=== PATIENT | female | born 1960 | race Caucasian/White ===

== ENCOUNTER → 2020-08-12 12:35 | Outpatient (CLI) | payer BC, SELFPAY ==
[2020-07-30 13:24] VITALS: BMI 33.6
--- NOTE | 2020-08-12 12:48 | MRI_ITS ---
STUDY: MRI LUMBAR SPINE WITHOUT CONTRAST REASON FOR EXAM: Female, 60 years old. BACK PAIN INTO HIPS BILATERALLY X 6 MONTHS TECHNIQUE: Standardized fat and water weighted pulse sequences were obtained in the sagittal and axial planes. COMPARISON: X-ray 07/30/2020 FINDINGS: T12-L1: Normal endplates. Normal disc height, hydration and morphology. Normal bilateral facet joints. Normal central canal and bilateral lateral recesses. Normal bilateral intervertebral neural foramina. Normal lumbar lordosis. There is no substantial scoliosis. Normal conus medullaris that terminates at the L2. L1-2: Normal endplates. Normal disc height, hydration and morphology. Normal bilateral facet joints. Normal central canal and bilateral lateral recesses. Normal bilateral intervertebral neural foramina. L2-3: Mild bilateral facet hypertrophy and moderate ligament flavum hypertrophy. Mild bilobed disc protrusion produces mild spinal stenosis with mild bilateral lateral recess stenosis and mild bilateral neural foraminal stenosis. L3-4: Moderate bilateral facet hypertrophy and severe ligament flavum hypertrophy. Mild bilobed disc protrusion produces mild spinal stenosis with mild bilateral lateral recess stenosis, mild right neural foraminal stenosis and moderate left neural foraminal stenosis with abutment of the left L3 nerve root laterally. L4-5: Mild bilateral facet hypertrophy and moderate ligament flavum hypertrophy. Mild broad disc protrusion produces mild spinal stenosis with mild bilateral lateral recess stenosis, moderate right neural foraminal stenosis with abutment of the right L4 nerve root laterally and mild left neural foraminal stenosis. L5-S1: Normal endplates. Normal disc height, hydration and morphology. Normal bilateral facet joints. Normal central canal and bilateral lateral recesses. Normal bilateral intervertebral neural foramina. Normal visualized sacral ala. Normal visualized paraspinous soft tissue structures. MRI/Spine Lumbar (Routine) IMPRESSION: Multilevel degenerative changes, as described above. Electronically Signed: Robert Osman MD at 16:32 EST Tel , Service support ,
== END ==
LOC: MRI 12:36
PROVIDERS: PCP Family Medicine; Referring Provider Orthopaedic Surgery; Visit Provider Orthopaedic Surgery
DX: M54.5 Low back pain (principal); M51.37 Other intervertebral disc degeneration, lumbosacral region
CPT/HCPCS: 72148

== ENCOUNTER → 2020-12-21 07:15 | Outpatient (CLI) | payer BC, SELFPAY ==
--- NOTE | 2020-12-21 07:30 | MRI_ITS ---
STUDY: MRI RIGHT SHOULDER REASON FOR EXAM: Chronic progressive right shoulder pain and decreased range of motion for 6 months. TECHNIQUE: Standardized fat and water weighted pulse sequences were obtained in all 3 orthogonal planes. COMPARISON: None. FINDINGS: There is mild supraspinatus tendinosis (T2 coronal images 10-13) without discrete tendon tear. Normal infraspinatus tendon. Normal subscapularis tendon. Normal teres minor tendon. Normal supraspinatus muscle. Normal infraspinatus muscle. Normal subscapularis muscle. Normal teres minor muscle. Normal glenohumeral articulation. There are small cysts in the anterior aspect of the humeral head and greater tuberosity. Normal biceps labral complex. There is tendinosis of the intracapsular long biceps tendon (T2 sagittal images 11-15). Normal labrum. Normal capsulo- ligamentous complex. There is acromioclavicular arthrosis with mild hypertrophic changes effacing the subacromial fat (T2 sagittal images 15, 16). There is a Type II morphology (curved), with a neutral orientation. There is a small volume of subacromial-subdeltoid bursal fluid. Normal visualized coracohumeral and coracoacromial ligaments. Normal deltoid muscle. Normal trapezius muscle. MRI/Upper Ext Joint Only(Routine) IMPRESSION: Mild supraspinatus tendinosis without demonstrated rotator cuff tear. Tendinosis of the long biceps tendon. Acromioclavicular arthrosis. Mild subacromial-subdeltoid bursitis. Electronically Signed: Anastacio Hogan MD at 8:42 EDT Tel , Service support ,
== END ==
PROVIDERS: PCP Family Medicine
DX: M25.511 Pain in right shoulder (principal); G89.29 Other chronic pain
CPT/HCPCS: 73221

== ENCOUNTER → 2021-04-26 13:19 | Outpatient (CLI) | payer BC, SELFPAY ==
--- NOTE | 2021-04-26 13:27 | MRI_ITS ---
STUDY: MRI LEFT SHOULDER REASON FOR EXAM: Chronic left shoulder pain, decreased range of motion. TECHNIQUE: Standardized fat and water weighted pulse sequences were obtained in all 3 orthogonal planes. COMPARISON: None. FINDINGS: There is supraspinatus tendinosis (T2 coronal images 8-10) without discrete tendon tear. There is mild infraspinatus tendinosis and a very small low-grade partial-thickness tear of the articular surface of the distal anterior infraspinatus tendon (T2 coronal image 13). Normal subscapularis tendon. Normal teres minor tendon. There is mild atrophy with mild partial fat replacement of the supraspinatus and infraspinatus muscles (T2 sagittal images 4-11). Normal subscapularis muscle. Normal teres minor muscle. Normal glenohumeral articulation. There is a small cyst in the greater tuberosity. Normal biceps labral complex. Normal intracapsular long biceps tendon. Normal labrum. Normal capsulo- ligamentous complex. There is mild acromioclavicular arthrosis without substantial undersurface osteophytes (T2 sagittal image 11). There is a Type II morphology (curved), with a neutral orientation. There is a small volume of subacromial-subdeltoid bursal fluid. Normal visualized coracohumeral and coracoacromial ligaments. Normal deltoid muscle. Normal trapezius muscle. MRI/Upper Ext Joint Only(Routine) IMPRESSION: Very small low-grade partial-thickness tear and mild tendinosis of the infraspinatus tendon. Supraspinatus tendinosis. Mild atrophy of the supraspinatus and infraspinatus muscles. Mild acromioclavicular arthrosis. Mild subacromial-subdeltoid bursitis. Electronically Signed: Anastacio Hogan MD at 7:17 EDT Tel , Service support ,
== END ==
PROVIDERS: PCP Family Medicine
DX: M25.512 Pain in left shoulder (principal); G89.29 Other chronic pain
CPT/HCPCS: 73221

== ENCOUNTER → 2021-06-29 11:17 | Outpatient (CLI) | payer MEDICAID, SELFPAY ==
[2021-06-29 12:23] LABS: Erythrocyte Sedimentation Rate 123 mm/hr (0-30)
[2021-06-29 12:49] LABS: LDH 143 U/L (84-246)
[2021-06-30 12:08] LABS: Anti-Centromere B Ab <0.2 AI (0.0-0.9); Anti-Chromatin <0.2 AI (0.0-0.9); Anti-Jo <0.2 AI (0.0-0.9); Anti-Scleroderma-70 AB <0.2 AI (0.0-0.9); RNP Ab <0.2 AI (0.0-0.9); SJOGREN'S Anti-SS-A test < 0.2 AI (0.0-0.9); SJOGREN'S Anti-SS-B test < 0.2 AI (0.0-0.9); Smith Ab <0.2 AI (0.0-0.9)
[2021-06-30 17:07] LABS: Albumin 3.2 g/dL (2.9-4.4); Alpha-1-Globulins 0.3 g/dL (0.0-0.4); Alpha-2-Globulins 1.4 g/dL (0.4-1.0); Cytoplasmic Ab (C-ANCA) <1:20 titer (Neg:<1:20); Gamma Globulin 1.6 g/dL (0.4-1.8); Immunoglobulin A 322 mg/dL (87-352); Immunoglobulin G 1397 mg/dL (586-1602); Immunoglobulin M 158 mg/dL (26-217); PROEL- TOTAL PROTEIN 7.7 g/dL (6.0-8.5)
[2021-07-01 09:45] LABS: Anti-dsDNA Ab <1 IU/mL (0-9)
[2021-07-01 20:32] LABS: IMMUNOFIXATION RESULT,S Comment: (.); Perinuclear Ab (P-ANCA) <1:20 titer (Neg:<1:20)
== END ==
PROVIDERS: PCP Family Medicine; Visit Provider Nurse Practitioner Adult Health
DX: R19.7 Diarrhea, unspecified (principal); R10.9 Unspecified abdominal pain; R59.0 Localized enlarged lymph nodes
CPT/HCPCS: 82533; 82784; 83615; 84165; 85652; 86140; 86225; 86235; 86256; 86334

== ENCOUNTER → 2021-07-07 09:46 | Outpatient (CLI) | payer MEDICAID, SELFPAY ==
[2021-07-07 10:47] LABS: Absolute Lymphocyte Count 5.08 X10^3/uL (0.83-4.51); Absolute Neutrophil Count 9.9 X10^3/uL (2.0-7.7); Basophil# 0.05 X10^3/uL; Basophil% 0.3 % (0-1); Eosinophil# 0.24 X10^3/uL; Eosinophils% 1.4 % (0-5); Hematocrit 34.8 % (37-47); Hemoglobin 11.1 g/dL (12.0-15.0); Lymphocyte # 5.08 X10^3/ul (0.83-4.51); Lymphocyte % 29.8 % (19-41); Mean Corp Hgb Conc 31.9 g/dL (32-36); Mean Corpuscular Hgb 26.9 pg (27.0-32.0); Mean Corpuscular Volume 84.3 fL (81-99); Mean Platelet Vol. 10.2 fl (6.2-12.0); Monocyte% 8.8 % (0-10); NRBC Flagged by Analyzer 0 % (0-5); Neutrophil # 9.91 X10^3/uL (2.7-7.7); Neutrophil % 58.2 % (47-70); POSITIVE DIFFERENTIAL YES; Platelet Count 394 K/mm3 (150-450); RBC Distribution Width CV 15.1 % (11.6-14.6); RBC Distribution Width SD 45.6 fl (35.1-43.9); Red Blood Count 4.13 M/mm3 (4.2-5.4)
[2021-07-07 10:50] LABS: Differential Indicated SCAN CRITERIA MET
[2021-07-07 11:14] LABS: Reactive Lymphocyte RARE
[2021-07-07 11:16] LABS: ALB/GLOB Ratio 0.8 RATIO (0.9-2.4); AST(SGOT) 6 U/L (15-37); Alanine Aminotransfer ALT/SGPT 13 U/L (13-56); Albumin, Serum 3.5 g/dL (3.2-5.0); Alkaline Phosphatase 58 U/L (45-117); Anion Gap 7 (5-15); BUN 26 mg/dL (7-18); BUN/Creat Ratio 26.9 RATIO (10-20); CRP 9.79 mg/L (0.0-3.0); Calcium,Total 9.7 mg/dL (8.5-10.1); Chloride 98 mmol/L (98-107); Creatinine, Serum 0.97 mg/dL (0.55-1.02); EST Glomerular Filtration Rate 63 mL/min (>60); Est Glom Filt Rate - Afr Amer 76 mL/min (>60); Globulin 4.6 g/dL (2.2-4.2); Glucose 93 mg/dL (74-106); Potassium 3.7 mmol/L (3.5-5.1); Protein, Total 8.1 g/dL (6.4-8.2); Sodium Level 134 mmol/L (136-145)
[2021-07-07 13:55] LABS: Erythrocyte Sedimentation Rate 28 mm/hr (0-30)
== END ==
PROVIDERS: PCP Family Medicine; Referring Provider Internal Medicine Gastroenterology; Visit Provider Internal Medicine Gastroenterology
DX: R19.7 Diarrhea, unspecified (principal)
CPT/HCPCS: 80053; 85025; 85652; 86140

== ENCOUNTER 2021-07-14 07:57 | Outpatient (CLI) | payer MEDICAID, SELFPAY ==
--- NOTE | 2021-07-14 07:59 | MRI_ITS ---
STUDY: MRI ABDOMEN WITH AND WITHOUT CONTRAST REASON FOR EXAM: Female, 61 years old. nodular left adrenal gland on CT TECHNIQUE: Standardized fat and water weighted pulse sequences were obtained in all 3 orthogonal planes post contrast administration. IV 17ml Dotarem was administered for the contrast portion of the examination. COMPARISON: CT 06/01/2021 FINDINGS: The visualized lung bases are unremarkable. The visualized portions of the heart are within normal limits. Normal liver. There is a solitary gallstone. Normal spleen. Normal pancreas. Normal bilateral adrenal glands. Normal right kidney. 1 cm cyst in the upper pole the left kidney. Normal visualized stomach. Normal small intestine. Normal colon. The appendix is visualized and appears normal. Normal abdominal aorta. Normal inferior vena cava. Normal retroperitoneum. Normal abdominal wall. Normal osseous structures. MRI/MRI Abd WITH and W/O Contrast IMPRESSION: Cholelithiasis. No adrenal gland mass. Electronically Signed: Robert Osman MD at 9:26 EST Tel , Service support ,
== END 2021-07-14 23:59 | disposition short-term general hospital (02) ==
LOC: MRI 07:59
PROVIDERS: PCP Family Medicine; Referring Provider Nurse Practitioner Adult Health; Visit Provider Nurse Practitioner Adult Health
DX: E27.9 Disorder of adrenal gland, unspecified (principal); K80.20 Calculus of gallbladder without cholecystitis without obstruction
CPT/HCPCS: 74183; A9575

== ENCOUNTER 2021-08-02 11:43 | Day surgery (SDC) | payer MEDICAID, SELFPAY ==
--- NOTE | 2021-08-02 | COLBX_PTH ---
PATIENT: CESAR THAKUR LOC: EN U#:[id number] AGE/SX: 61/F ROOM: RE08/02/[address]: Dr. Doug Tamez DO : 1960 BED: DIS: 08/02/2021 SPEC #: [id number] RECD: 08/02/21 15:55 STATUS: SUIS RERoshan #: [id number] PATI: 08/02/21 00:[address]: Doug Tamez DEPT: SURGICAL PATHOLOGY RECD BY: Álvaro Pugh ENTERED: 08/03/21 09:32 SP TYPE: COLON BX OTHR DR: Dr. Tre Grady MD Tissues: A - Duodenum, NOS B - Esophageal mucous membrane C - Gastric mucous membrane D - Sigmoid colon biopsy E - Rectum, NOS Procedures: Special Stain Group II Surgery Specimen Level IV Alcian Blue/PAS (control) HEADER OPERATION: Colonoscopy, EGD ([facility]) PRE-OP DIAGNOSIS: Abdominal pain, decreased appetite, diarrhea/constipation, bloating and increased gas TISSUE SUBMITTED: A ? Duodenum biopsy, B ? Distal esophagus, C ? Hepatic flexure polyp biopsy, D ? Sigmoid polyp, E ? Rectal polyp MICROSCOPIC DIAGNOSIS A. Duodenum, biopsy: No pathologic change. B. Distal esophagus, biopsy: Gastroesophageal junctional mucosa with mild chronic inflammation. Focal changes of reflux. No evidence of goblet cell metaplasia. See comment. C. Colonic polyp at hepatic flexure, biopsy: Tubular adenoma. D. Sigmoid colon polyp, biopsy: Hyperplastic polyp. E. Rectal polyp, biopsy: Fragments of hyperplastic polyp. AM:ton 08/04/2021 COMMENT B. Alcian blue/PAS stain with matched control supports the above diagnosis. MICROSCOPIC DESCRIPTION Slides are reviewed. GROSS DESCRIPTION A - Received in fixative is one container labeled with the patient's name and designated duodenum biopsy. The specimen consists of two irregular fragments of light brannon soft tissue that in aggregate measure 0.6 x 0.2 x 1 cm. The specimen is totally submitted in one cassette. B - Received in fixative is one container labeled with the patient's name and designated distal esophagus biopsy. The specimen consists of multiple irregular fragments of light brannon soft tissue that in aggregate measure 1.5 x 0.3 x 0.1 cm. The specimen is totally submitted in one cassette. C - Received in fixative is one container labeled with the patient's name and designated hepatic flexure polyp biopsy. The specimen consists of one irregular fragment of light brannon soft tissue that measures 0.5 x 0.4 x 0.1 cm. The specimen is totally submitted in one cassette. D - Received in fixative is one container labeled with the patient's name and designated sigmoid polyp. The specimen consists of one irregular fragment of light brannon soft tissue that measures 0.4 x 0.3 x 0.1 cm. The specimen is totally submitted in one cassette. E - Received in fixative is one container labeled with the patient's name and designated rectal polyp. The specimen consists of multiple irregular fragments of light brannon soft tissue that in aggregate measure 1 x 0.3 x 0.1 cm. The specimen is totally submitted in one cassette. / SJ:rg 08/03/2021 TC:5 CPT: 43759 x5, 07213
[2021-08-02 12:11] VITALS: BP 137/66; PULSE 67; RESP 16; TEMP 36.6; O2SAT 100; BMI 29.7
[2021-08-02] MEDS: Lactated Ringers 1,000 ML 15 ML IV (12:15)
--- NOTE | 2021-08-02 12:50 | HP.PCM_ITS ---
History and Physical Date of Admission: 08/02/21 CESAR THAKUR, is a 61 F who presents to the office today for For the last 2-3 months she has been having problems. Abdominal pain above umbilical which has started to feel better in the last week, decreased appetite, night sweats, fever and chills about once a week, diarrhea alternating with constipation, bloating and increased gas. She has attempted bland diet and has reduced dairy and gluten. To treat new constipation, she has been using OTC medications and eventually required glycerin suppository. Severe constipation has gotten better but requires elevation of feet and OTC stool softeners. Eating small frequent meals and feels the bloating and gas has improved. Several imaging procedures performed with kidney stones, gallbladder stones, bilateral inguinal hernias, splenomegaly. ROS Const Constitutional: Positive for fatigue, headache(s) and weight change ENT ENT: Positive for nasal congestion and headache(s) Gastro GI: Positive for abdominal pain, bloating, change in bowel habits, constipation and nausea/dyspepsia Musc Musculoskeletal: Positive for joint pain, back pain, joint swelling, muscle weakness, numbness, stiffness, tingling and Arthritis Neuro Neurology: Positive for headache(s), numbness and tingling Psych Psychiatric: Positive for anxiety Endo Endocrine: Positive for fatigue and weight change Tanner/Lymp Hematologic/Lymphatic: Positive for easy bruising Exam Const General: cooperative and comfortable Nutritional Appearance: average body habitus and well nourished [facility] Head: normal to inspection Ears: hearing grossly normal bilaterally Nose: external nose normal Face and sinus: normal facial exam Mouth: oral mucosae normal Throat: posterior oropharynx normal Eyes General: appearance normal, both eyes and all related structures Neck Neck: normal visual inspection Chest Chest palpation & inspection: normal inspection of the chest and normal p alpation of entire chest wall Resp Effort & Inspection: normal respiratory effort Auscultation: Bilateral: Clear to Auscultation Cardio Palpation: normal PMI Rate: regular rate Rhythm: regular rhythm GI Inspection: normal to inspection Auscultation: normal bowel sounds Percussion: normal to percussion Palpation: no hepatosplenomegaly Skin General: no rashes or lesions noted Neuro General: patient alert Extrem General: normal to inspection Psych Affect: normal affect Quality Reporting Tobacco Screening ([facility] 138) Smoking Status: Former smoker Assessment and Plan Assessment and Plan (1) Adrenal abnormality: Status: Acute Orders: Orders: MRI Abd WITH and W/O Contrast Today Hilda Luna NP, TURNING MACHINE SET UP OPERATOR-C CORTISOL SERUM Today Hilda Luna NP, TURNING MACHINE SET UP OPERATOR-C Referrals: Urology Hilda Luna NP, TURNING MACHINE SET UP OPERATOR-C Brendon Tamez, DO: We can draw labs for pheochromocytoma for now we will just draw an MRI of the adrenal lesion. (2) Staghorn calculus: Status: Acute Orders: Referrals: Urology Hilda Luna NP, TURNING MACHINE SET UP OPERATOR-C Brendon Tamez, DO: She will need referral to rule out urology regarding the staghorn calculus therapy could be causing intermittent urinary tract infections. (3) Chronic cystitis: Status: Chronic Orders: Referrals: Urology Hilda Luna NP, TURNING MACHINE SET UP OPERATOR-C Brendon Tamez, DO: She is scheduled to get another UTI. She is just got off of Keflex therapy after being on Macrobid for multiple weeks. (4) Diverticulitis: Status: Acute Plan - Dr. Doug Tamez, DO: Patient has no sinus symptoms with diverticulitis at this time. (5) Headache: Status: Acute Plan - Dr. Doug Tamez, DO: Because of her headache, weight loss and night sweats. I will order LDH, CPK, t hyroid, CRP, DARREN. Plan Details Other Medications: New: ursodiol 300 mg PO BID 60 caps 2RF Hilda Luna NP, TURNING MACHINE SET UP OPERATOR-C colestipol 2 grams (2 x 1 gram) PO QPM 60 tabs 1RF Hilda Luna NP, TURNING MACHINE SET UP OPERATOR-C prednisone 60 mg (3 x 20 mg) PO DAILY [address] Doug Tamez, DO bisacodyl take as directed for bowel prep 5 mg PO ONCE [address] Doug Tamez, DO polyethylene glycol 3350 (Miralax) take as directed for bowel prep 17 grams PO DAILY [address] Doug Tamez, DO I have re-examined the patient. There are no clinical changes since date of exam.
--- NOTE | 2021-08-02 13:14 | OP.EGD_ITS ---
Patient Name: Crystal Edwards Procedure Date: 08/02/2021 12:49 PM Date of : 1960 Age: 61 Procedure: Upper GI endoscopy Indications: Epigastric abdominal pain, Heartburn Providers: Doug Tamez DO Referring MD: Tre Grady Medicines: See the Anesthesia note for documentation of the administered medications Patient Profile: This is a 61 year old female. Refer to note in patient chart for documentation of history and physical. Patient has symptoms of acute heartburn. Complications: No immediate complications. Procedure: Pre-Anesthesia Assessment: - Prior to the procedure, a History and Physical was performed, and patient medications and allergies were reviewed. The patient is competent. The risks and benefits of the procedure and the sedation options and risks were discussed with the patient. All questions were answered and informed consent was obtained. Patient identification and proposed procedure were verified by the physician in the pre-procedure area. Mental Status Examination: alert and oriented. Airway Examination: normal oropharyngeal airway and neck mobility. Respiratory Examination: clear to auscultation. CV Examination: normal. Prophylactic Antibiotics: The patient does not require prophylactic antibiotics. Prior Anticoagulants: The patient has taken no previous anticoagulant or antiplatelet agents. After reviewing the risks and benefits, the patient was deemed in satisfactory condition to undergo the procedure. The anesthesia plan was to use moderate sedation / analgesia (conscious sedation). Immediately prior to administration of medications, the patient was re-assessed for adequacy to receive sedatives. The heart rate, respiratory rate, oxygen saturations, blood pressure, adequacy of pulmonary ventilation, and response to care were monitored throughout the procedure. The physical status of the patient was re-assessed after the procedure. After obtaining informed consent, the endoscope was passed under direct vision. Throughout the procedure, the patient's blood pressure, pulse, and oxygen saturations were monitored continuously. The gastroscope was introduced through the mouth, and advanced to the second part of duodenum. The upper GI endoscopy was accomplished without difficulty. The patient tolerated the procedure well. Moderate Sedation: Moderate (conscious) sedation was administered by the endoscopy nurse and supervised by the endoscopist. The following parameters were monitored: oxygen saturation, heart rate, blood pressure, and response to care. Total physician intraservice time was 2 minutes. Scope In: 1:01:41 PM Scope Out: 1:10:42 PM Total Procedure Duration Time 0 hours 9 minutes 1 second Findings: LA Grade A (one or more mucosal breaks less than 5 mm, not extending between tops of 2 mucosal folds) esophagitis with no bleeding was found 34 to 35 cm from the incisors. Biopsies were taken with a cold forceps for histology. Verification of patient identification for the specimen was done. Estimated blood loss was minimal. Patchy, white plaques were found in the lower third of the esophagus. Biopsies were taken with a cold forceps for histology. The entire examined stomach was normal. Patchy mildly erythematous mucosa without active bleeding and with no stigmata of bleeding was found in the first portion of the duodenum. Biopsies were taken with a cold forceps for histology. Verification of patient identification for the specimen was done. Estimated blood loss was minimal. Impression: - LA Grade A reflux esophagitis. Biopsied. - Esophageal plaques were found, consistent with candidiasis. Biopsied. - Normal stomach. - Erythematous duodenopathy. Biopsied. Recommendation: - Discharge patient to home. - Resume previous diet. - Continue present medications. - Await pathology results. - Return to my office in 2 weeks. Procedure Code(s): --- Professional --- 70246, Esophagogastroduodenoscopy, flexible, transoral; with biopsy, single or multiple CPT copyright 2017 [employer]. All rights reserved. The codes documented in this report are preliminary and upon balance wheel motion inspector review may be revised to meet current compliance requirements. Doug Tamez DO 08/02/2021 1:14:10 PM This report has been signed electronically. Number of Addenda: 1 Note Initiated On: 08/02/2021 12:49 PM Addendum Number: 1 Addendum Date: 03/16/2022 6:24:04 AM MAC was used instead of moderate sedation for the patient. Doug Tamez DO 03/16/2022 6:24:08 AM This report has been signed electronically.
--- NOTE | 2021-08-02 13:15 | OP.CCLET_ITS ---
03/16/2022 Tre Grady [address] [place] [address] Re : Upper GI endoscopy procedure for Crystal Edwards Dear Dr. Grady This procedure was performed on Monday, August 02, 2021. My impressions and recommendations are as follows: Impressions : - LA Grade A reflux esophagitis. Biopsied. - Esophageal plaques were found, consistent with candidiasis. Biopsied. - Normal stomach. - Erythematous duodenopathy. Biopsied. Recommendations : - Discharge patient to home. - Resume previous diet. - Continue present medications. - Await pathology results. - Return to my office in 2 weeks. My findings are described in the full procedure note, which is enclosed. If I can be of further assistance, please feel free to contact me at . Sincerely, Doug Tamez, 08/02/2021 1:14:10 PM This report has been signed electronically.
--- NOTE | 2021-08-02 13:47 | OP.COLON_ITS ---
Patient Name: Crystal Edwards Procedure Date: 08/02/2021 1:18 PM Date of : 1960 Age: 61 Procedure: Colonoscopy Indications: Epigastric abdominal pain, Chronic diarrhea Providers: Doug Tamez DO Referring MD: Tre Grady Medicines: See the Anesthesia note for documentation of the administered medications Patient Profile: This is a 61 year old female. Refer to note in patient chart for documentation of history and physical. Patient has symptoms of acute heartburn. Last Colonoscopy: date unknown. Complications: No immediate complications. Procedure: Pre-Anesthesia Assessment: - Prior to the procedure, a History and Physical was performed, and patient medications and allergies were reviewed. The patient is competent. The risks and benefits of the procedure and the sedation options and risks were discussed with the patient. All questions were answered and informed consent was obtained. Patient identification and proposed procedure were verified by the physician in the pre-procedure area. Mental Status Examination: alert and oriented. Airway Examination: normal oropharyngeal airway and neck mobility. Respiratory Examination: clear to auscultation. CV Examination: normal. Prophylactic Antibiotics: The patient does not require prophylactic antibiotics. Prior Anticoagulants: The patient has taken no previous anticoagulant or antiplatelet agents. After reviewing the risks and benefits, the patient was deemed in satisfactory condition to undergo the procedure. The anesthesia plan was to use moderate sedation / analgesia (conscious sedation). Immediately prior to administration of medications, the patient was re-assessed for adequacy to receive sedatives. The heart rate, respiratory rate, oxygen saturations, blood pressure, adequacy of pulmonary ventilation, and response to care were monitored throughout the procedure. The physical status of the patient was re-assessed after the procedure. After I obtained informed consent, the scope was passed under direct vision. Throughout the procedure, the patient's blood pressure, pulse, and oxygen saturations were monitored continuously. The Colonoscope was introduced through the anus and advanced to the cecum, identified by appendiceal orifice and ileocecal valve. The colonoscopy was performed without difficulty. The patient tolerated the procedure well. The quality of the bowel preparation was poor. Moderate Sedation: Moderate (conscious) sedation was administered by the endoscopy nurse and supervised by the endoscopist. The patient's oxygen saturation, heart rate, blood pressure and response to care were monitored. Total physician intraservice time was 15 minutes. Scope In: 1:19:04 PM Scope Withdrawal Time 0 hours 15 minutes 32 seconds Scope Out: 1:40:43 PM Total Procedure Duration Time 0 hours 21 minutes 39 seconds Findings: The perianal and digital rectal examinations were normal, except for some small internal hemorrhoids. Three sessile polyps were found in the rectum and hepatic flexure. The polyps were 1 to 2 mm in size. These polyps were removed with a cold snare. Resection and retrieval were complete. Verification of patient identification for the specimen was done. Estimated blood loss was minimal. A few small-mouthed diverticula were found in the recto-sigmoid colon and sigmoid colon. There was no evidence of diverticular bleeding. Impression: - Preparation of the colon was poor. - Three 1 to 2 mm polyps in the rectum and at the hepatic flexure, removed with a cold snare. Resected and retrieved. - Mild diverticulosis in the recto-sigmoid colon and in the sigmoid colon. There was no evidence of diverticular bleeding. Recommendation: - Discharge patient to home. - Resume previous diet. - Continue present medications. - Await pathology results. - Repeat colonoscopy in 3 years for surveillance of multiple polyps. - Return to GI office. Procedure Code(s): --- Professional --- 62276, Colonoscopy, flexible; with removal of tumor(s), polyp(s), or other lesion(s) by snare technique 76900, 59, Moderate sedation services provided by the same physician or other qualified health caregivers homecare performing the diagnostic or therapeutic service that the sedation supports, requiring the presence of an independent trained observer to assist in the monitoring of the patient's level of consciousness and physiological status; initial 15 minutes of intraservice time, patient age 5 years or older CPT copyright 2017 [employer] [place] [employer]. All rights reserved. The codes documented in this report are preliminary and upon medical biller coder review may be revised to meet current compliance requirements. Doug Tamez DO 08/02/2021 1:46:30 PM This report has been signed electronically. Number of Addenda: 1 Note Initiated On: 08/02/2021 1:18 PM Addendum Number: 1 Addendum Date: 03/16/2022 6:24:18 AM MAC was used instead of moderate sedation for the patient. Doug Tamez DO 03/16/2022 6:24:22 AM This report has been signed electronically.
--- NOTE | 2021-08-02 13:47 | OP.CCLET_ITS ---
03/16/2022 Tre Grady [address] [place] [address] Re : Colonoscopy procedure for Crystal Chikai Dear Dr. Grady This procedure was performed on Monday, August 02, 2021. My impressions and recommendations are as follows: Impressions : - Preparation of the colon was poor. - Three 1 to 2 mm polyps in the rectum and at the hepatic flexure, removed with a cold snare. Resected and retrieved. - Mild diverticulosis in the recto-sigmoid colon and in the sigmoid colon. There was no evidence of diverticular bleeding. Recommendations : - Discharge patient to home. - Resume previous diet. - Continue present medications. - Await pathology results. - Repeat colonoscopy in 3 years for surveillance of multiple polyps. - Return to GI office. My findings are described in the full procedure note, which is enclosed. If I can be of further assistance, please feel free to contact me at . Sincerely, Doug Tamez, 08/02/2021 1:46:30 PM This report has been signed electronically.
[2021-08-02 13:48] VITALS: BP 136/73; BP 137/66; PULSE 71; RESP 16; TEMP 36.3; O2SAT 100
[2021-08-02 13:53] VITALS: BP 130/68; BP 137/66; PULSE 56; RESP 16; O2SAT 100
[2021-08-02 13:58] VITALS: BP 131/60; BP 137/66; PULSE 58; RESP 15; O2SAT 100
[2021-08-02 14:03] VITALS: BP 118/64; BP 137/66; PULSE 58; RESP 16; TEMP 36.2; O2SAT 100
[2021-08-02 14:14] VITALS: BP 137/66
== END 2021-08-02 23:59 | disposition home or self-care (01) ==
LOC: EN 11:44 → AC 11:45
PROVIDERS: PCP Family Medicine; Referring Provider Family Medicine; Visit Provider Internal Medicine Gastroenterology
PROC: 0DJD8ZZ Inspection of Lower Intestinal Tract, Via Natural or Artificial Opening Endoscopic (ICD-10-PCS; CPT 45378; principal; 2021-08-02 12:40)
DX: K21.00 Gastro-esophageal reflux disease with esophagitis, without bleeding (principal); E27.9 Disorder of adrenal gland, unspecified; E11.9 Type 2 diabetes mellitus without complications; K57.30 Diverticulosis of large intestine without perforation or abscess without bleeding; D12.3 Benign neoplasm of transverse colon; K62.1 Rectal polyp; K52.9 Noninfective gastroenteritis and colitis, unspecified; K64.8 Other hemorrhoids; K76.0 Fatty (change of) liver, not elsewhere classified; M79.7 Fibromyalgia; N20.0 Calculus of kidney; E78.5 Hyperlipidemia, unspecified; M19.90 Unspecified osteoarthritis, unspecified site; R51.9 Headache, unspecified; N30.20 Other chronic cystitis without hematuria; E66.9 Obesity, unspecified; Z68.29 Body mass index [BMI] 29.0-29.9, adult; Z79.82 Long term (current) use of aspirin; Z79.84 Long term (current) use of oral hypoglycemic drugs; Z79.899 Other long term (current) drug therapy; Z87.891 Personal history of nicotine dependence
CPT/HCPCS: 45385; 43239; 88305; 88313; J7120

== ENCOUNTER 2021-09-15 15:06 | Outpatient (CLI) | payer MEDICAID, SELFPAY ==
[2021-09-15 16:50] LABS: Absolute Lymphocyte Count 2.01 X10^3/uL (0.83-4.51); Absolute Neutrophil Count 8.6 X10^3/uL (2.0-7.7); Basophil# 0.05 X10^3/uL; Basophil% 0.4 % (0-1); Eosinophil# 0.03 X10^3/uL; Eosinophils% 0.3 % (0-5); Hematocrit 43.4 % (37-47); Lymphocyte # 2.01 X10^3/ul (0.83-4.51); Lymphocyte % 17.5 % (19-41); Mean Corp Hgb Conc 32.3 g/dL (32-36); Mean Corpuscular Hgb 28.1 pg (27.0-32.0); Mean Corpuscular Volume 87.1 fL (81-99); Mean Platelet Vol. 11.1 fl (6.2-12.0); Monocyte# 0.61 X10^3/uL; Monocyte% 5.3 % (0-10); NRBC Flagged by Analyzer 0 % (0-5); Neutrophil # 8.64 X10^3/uL (2.7-7.7); Neutrophil % 75.3 % (47-70); Platelet Count 282 K/mm3 (150-450); RBC Distribution Width CV 16.8 % (11.6-14.6); RBC Distribution Width SD 52.7 fl (35.1-43.9); Red Blood Count 4.98 M/mm3 (4.2-5.4); White Blood Count 11.5 K/mm3 (4.4-11.0)
[2021-09-15 17:10] LABS: AST(SGOT) 12 U/L (15-37); Alanine Aminotransfer ALT/SGPT 24 U/L (13-56); Albumin, Serum 3.9 g/dL (3.2-5.0); Alkaline Phosphatase 45 U/L (45-117); Anion Gap 6 (5-15); BUN 23 mg/dL (7-18); BUN/Creat Ratio 20.5 RATIO (10-20); Calcium,Total 9.5 mg/dL (8.5-10.1); Chloride 104 mmol/L (98-107); Creatinine, Serum 1.12 mg/dL (0.55-1.02); EST Glomerular Filtration Rate 53 mL/min (>60); Est Glom Filt Rate - Afr Amer 64 mL/min (>60); Globulin 3.8 g/dL (2.2-4.2); Glucose 138 mg/dL (74-106); Potassium 4.3 mmol/L (3.5-5.1); Protein, Total 7.7 g/dL (6.4-8.2); Sodium Level 137 mmol/L (136-145)
== END 2021-09-15 23:59 | disposition home or self-care (01) ==
LOC: BIMLAB 15:07
PROVIDERS: PCP Internal Medicine; Referring Provider Internal Medicine; Visit Provider Internal Medicine
DX: E11.9 Type 2 diabetes mellitus without complications (principal)
CPT/HCPCS: 36415; 80053; 85025

== ENCOUNTER → 2021-11-24 | Outpatient (CLI) | payer MEDICAID, SELFPAY ==
--- NOTE | 2021-11-24 07:16 | US_ITS ---
STUDY: ABDOMINAL ULTRASOUND - RIGHT UPPER QUADRANT REASON FOR VISIT: Female, 61 years old . Gallstones. TECHNIQUE: Ultrasound evaluation of the right upper quadrant was performed with real-time and static harris-scale imaging. TECHNICAL QUALITY: Adequate. COMPARISON: None. FINDINGS: Liver: The liver measures 13.6 cm. There is increased echogenicity consistent with fatty infiltration. The bile ducts are within normal limits. There is hepatic color flow. The direction of portal flow is hepatopetal. There is no demonstrated mass lesion. Gallbladder: Normal distended gallbladder. The gallbladder wall measures 2.3 mm. There is a negative sonographic Correia''s sign. There is no pericholecystic fluid. There are multiple echogenic structures within the gallbladder, consistent with multiple gallstones. Common Bile Duct (C.B.D.): The common bile duct measures 7.0 mm. Pancreas: Normal size of the head, body of the pancreas. The tail portion is obscured due to overlying bowel gas. There is normal echogenicity of the pancreas. There is no demonstrated pancreatic mass or cyst. Right Kidney: Normal size of the right kidney. The right kidney measures 10.9 cm x 5.7 cm x 6.1 cm. Normal renal cortex. The right cortex measures 1.6 cm. There is no demonstrated renal mass or cyst. There is no right hydronephrosis. US/Abdomen Limited IMPRESSION: Fatty infiltration the liver. Multiple gallstones. Electronically Signed: Rory Ritchie MD at 9:10 EDT ,
== END | disposition home or self-care (01) ==
LOC: US 07:14
PROVIDERS: PCP Family Medicine; Visit Provider Nurse Practitioner Adult Health
DX: K80.20 Calculus of gallbladder without cholecystitis without obstruction (principal)
CPT/HCPCS: 76705

== ENCOUNTER → 2022-08-25 | Outpatient (CLI) | payer MEDICAID, SELFPAY ==
--- NOTE | 2022-08-25 07:28 | US_ITS ---
STUDY: ABDOMINAL ULTRASOUND - RIGHT UPPER QUADRANT REASON FOR VISIT: Female, 62 years old gallstones, fatty liver -- RUQ TECHNIQUE: Ultrasound evaluation of the right upper quadrant was performed with real-time and static harris-scale imaging. TECHNICAL QUALITY: Adequate. COMPARISON: Comparison is made with prior study dated 11/24/2021. FINDINGS: Liver: The liver measures 17.3 cm. There is increased echogenicity consistent with fatty infiltration. The bile ducts are within normal limits. There is hepatic color flow. The direction of portal flow is hepatopetal. There is no demonstrated mass lesion. Gallbladder: Normal distended gallbladder. The gallbladder wall measures 3 mm. There is a negative sonographic Correia''s sign. There is no pericholecystic fluid. There are multiple echogenic structures within the gallbladder, consistent with multiple gallstones. Common Bile Duct (C.B.D.): The common bile duct measures 6 mm. Pancreas: Normal size of the head, body and tail of the pancreas. There is normal echogenicity of the pancreas. There is no demonstrated pancreatic mass or cyst. Right Kidney: Normal size of the right kidney. The right kidney measures 11 cm x 6.1 cm x 5.4 cm. Normal renal cortex. The right cortex measures 1.8 cm. There is no demonstrated renal mass or cyst. There is no right hydronephrosis. US/Abdomen Limited IMPRESSION: Mild hepatomegaly and diffuse fatty infiltration of the liver. Gallstones. Electronically Signed: Rory Ritchie MD at 15:25 EST ,
--- NOTE | 2022-08-25 07:28 | US_ITS ---
STUDY: ABDOMINAL ULTRASOUND - ELASTOGRAPHY REASON FOR VISIT: Female, 62 years old. Fatty eventration of the liver. TECHNIQUE: Liver stiffness measurements were obtained on a [employer] RS 85 ultrasound machine using a CA 1-7 probe following the SRU guidelines. 3 measurements were obtained using a 2-D-SWE method. TheIQR/M was 17% suggesting a quality data set. TECHNICAL QUALITY: Adequate. COMPARISON: Comparison is made with prior study dated 11/24/2021. FINDINGS: Liver: Fatty infiltration of the liver. Median liver stiffness measured 6.2 kPa. US/Elastography Parenchyma/Organ IMPRESSION: Liver stiffness measures 6.2 kPa compatible with F2-F3 (Mild to moderate liver fibrosis) Metavir score. Electronically Signed: Rory Ritchie MD at 15:26 EST ,
== END | disposition home or self-care (01) ==
PROVIDERS: PCP Family Medicine; Referring Provider Nurse Practitioner Adult Health; Visit Provider Nurse Practitioner Adult Health
DX: K80.20 Calculus of gallbladder without cholecystitis without obstruction (principal); K76.0 Fatty (change of) liver, not elsewhere classified
CPT/HCPCS: 76705; 76981

== ENCOUNTER → 2024-03-21 | Outpatient (CLI) | payer MEDICAID, SELFPAY ==
--- NOTE | 2024-03-21 09:50 | US_ITS ---
STUDY: ABDOMINAL ULTRASOUND - RIGHT UPPER QUADRANT; ELASTOGRAPHY REASON FOR VISIT: Female, 64 years old. Fatty infiltration of the liver. TECHNIQUE: Ultrasound evaluation of the right upper quadrant was performed with real-time and static harris-scale imaging. Point quantification shear wave elastography was performed ([employer]). TECHNICAL QUALITY: Adequate. COMPARISON: Comparison is made with prior study April 24, 2023. FINDINGS: Liver: The liver is slightly enlarged and measures 17.8 cm. There is increased echogenicity consistent with a mild degree of fatty infiltration. The bile ducts are within normal limits. There is hepatic color flow. The direction of portal flow is hepatopetal. There is no demonstrated mass lesion. Median liver stiffness measured 9.8 kPa. Gallbladder: Normal distended gallbladder. The gallbladder wall measures 2.7 mm. There is a negative sonographic Correia''s sign. There is no pericholecystic fluid. There are multiple echogenic structures within the gallbladder, consistent with multiple gallstones. Common Bile Duct (C.B.D.): The common bile duct measures 6.4 mm. Pancreas: There is normal echogenicity of the visualized pancreas. There is no demonstrated pancreatic mass or cyst. Right Kidney: Normal size of the right kidney. The right kidney measures 11.1 cm x 5.7 cm x 5.1 cm. Normal renal cortex. The right cortex measures 1.2 cm. There is no demonstrated renal mass or cyst. There is no right hydronephrosis. US/ABD Limited w/ Elastography IMPRESSION: 1. Liver stiffness measures 9.8 kPa compatible with F2-F3 (Mild to moderate liver fibrosis) Metavir score. Electronically Signed: Rory Ritchie MD at 10:38 EDT ,
== END | disposition home or self-care (01) ==
LOC: US 09:13
PROVIDERS: PCP Family Medicine; Referring Provider Student in an Organized Health Care Education/Training Program; Visit Provider Student in an Organized Health Care Education/Training Program
DX: K80.20 Calculus of gallbladder without cholecystitis without obstruction (principal); K76.0 Fatty (change of) liver, not elsewhere classified
CPT/HCPCS: 76705; 76981

== ENCOUNTER 2024-09-29 09:56 | Day surgery (SDC) | payer MEDICAID, SELFPAY ==
[2024-09-29] VITALS (9 sets, daily range): BP systolic 127–146; BP diastolic 7–87; PULSE 63–71; RESP 16; TEMP 36.3–36.9; O2SAT 95–100; BMI 30.2
--- NOTE | 2024-09-29 10:17 | PCM.HP.STD ---
[facility] - General General Date of Admission: 10/08/24 Date of Service: 09/29/24 HPI Narrative CESAR THAKUR, is a 63 F who presents for a colonoscopy Dr Tamez prescribed ursodiol to try to treat gallstones; the gallstones persist per US; they are asymptomatic. Because of hepatic steatosis we got liver elastography--liver stiffness 6.2 kpa which is F0-F1 Metavir score. Her comorbid conditions that can affect liver stiffness include obesity, DM2, hyperlipidemia. She takes prn ondansetron for occas nausea which seems random, not assoc with other symptoms. No vomiting, dysphagia, abdominal pain. She takes omeprazole for gerd, not having heartburn or acid reflux. Her bowels are good, no diarrhea or constipation, no melena or hematochezia. Daily ibuprofen 800-2400 mg per day typically, 07/2021 Colonoscopy 1-2 mm tubular adenoma, repeat in 5 yrs OV 8.27.24 patient has been doing well. Although she has been having constipation, nausea and vomiting since being on narcotic following her shoulder surgery. She is having a bowel movement about once a day but her normal is 2-4 times per day. She has also been taking milk of mag and using a glycerin suppository as needed. She has been on narcotics before and had not had these type of symptoms before. She says she will only be on them for one more week. Overall she is feeling better than she has in the past. [facility] Medical History Fibromuscular dysplasia GCA (giant cell arteritis) Type 2 diabetes mellitus Wears glasses Wears dentures Depression Anxiety Alcohol use Abrasion History of steroid therapy Diabetes Arthritis History of renal disease Hx of temporal arteritis Anemia Fatty liver Easy bruising Restless legs Back pain Migraine headache History of fibromuscular dysplasia Syncope Dietary restriction History of diverticulosis Former smoker Shortness of breath on exertion Leg cramps History of edema History of stress test Cardiology follow-up encounter History of irregular heartbeat Chest pain Hx of flexible sigmoidoscopy History of use of contraceptive intrauterine device (IUD) Heart palpitations Fibromuscular dysplasia of renal artery Controlled type 2 diabetes mellitus DRUJ (distal radioulnar joint) arthrosis, 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, thumb, degenerative Pain in joint, hand Chondromalacia of patella Dizziness and giddiness Cervicalgia Benign neoplasm of colon Edema Fibromyalgia Obesity Osteoarthrosis Esophageal reflux Hyperlipidemia HTN (hypertension) uterine ablation Rectocele Home Medications ?Medication ?Instructions ?Recorded ?Last Taken ?Type albuterol sulfate 90 mcg/actuation 2 puff inhalation Q6H PRN SOB 07/30/20 Unknown History aerosol inhaler amlodipine 5 mg tablet 5 mg PO QHS 07/30/20 09/28/24 History aspirin 81 mg tablet,delayed 81 mg PO DAILY 07/30/20 09/25/24 History release (Adult Low Dose Aspirin) benzonatate 100 mg capsule 100 mg PO PRN PRN Cough 07/30/20 Unknown History coenzyme Q10 75 mg capsule (Ultra 200 mg PO DAILY 07/30/20 Unknown History CoQ10) hydrochlorothiazide 50 mg tablet 25 mg PO DAILY 07/30/20 09/29/24 06:30 History lisinopril 20 mg tablet 40 mg PO DAILY 07/30/20 09/29/24 06:30 History loratadine 10 mg capsule 10 mg PO DAILY PRN ALLERGIES 07/30/20 Unknown History methocarbamol 500 mg tablet 1,000 mg PO PRN PRN MUSCLE SPASMS 07/30/20 Unknown History nadolol 80 mg tablet 40 tab PO BID 07/30/20 09/29/24 06:30 History nystatin 100,000 unit/gram topical 1 applic topical DAILY PRN Skin 07/30/20 Unknown History powder Cleansing calcium carb-ergocalciferol (vit 1 tab PO DAILY 08/01/21 Unknown History D2) 600 mg calcium-200 unit tablet omeprazole 20 mg tablet,delayed 20 mg PO DAILY 08/01/21 09/28/24 History release Bacillus coagulans-Bacillus 1 tab PO DAILY #90 tabs 08/22/21 Unknown Rx subtilis 1 billion cell chewable tablet (up4 Probiotics-Mind and Body) ibuprofen 600 mg tablet 800 mg PO PRN PRN Pain 09/15/21 09/28/24 History metformin 500 mg tablet,extended 500 mg PO DAILY 09/15/21 09/27/24 History release 24hr (osmotic) vitamin B complex (B 1 tab PO DAILY 09/15/21 Unknown History Complex-Vitamin B12 tablet) phytonadione (vitamin K1) 100 mcg 100 mcg PO DAILY 03/04/24 Unknown History tablet Held on 09/29/24. Instructions: pt out of maria esther ursodiol 300 mg capsule See Rx Instructions .Route .COMPLEX 03/04/24 Unknown History ursodiol 300 mg capsule 300 mg PO BID #90 caps 05/08/24 09/28/24 Rx Allergy/AdvReac Type Severity Reaction Status Date / Time gabapentin Allergy Severe Depression, Verified 09/29/24 10:14 suicidal thoughts cat dander Allergy Mild unknown Verified 09/29/24 10:14 latex Allergy Mild Redness, Verified 09/29/24 10:14 itching niacinamide Allergy Mild Facial Verified 09/29/24 10:14 Numbness rabbit dander Allergy Mild SOB Verified 09/29/24 10:14 aspartame AdvReac Mild Severe Verified 09/29/24 10:14 Headache atorvastatin AdvReac Mild Muscle Verified 09/29/24 10:14 Aches azithromycin (From Zithromax) AdvReac Mild GI upset Verified 09/29/24 10:14 doxycycline AdvReac Mild GI upset Verified 09/29/24 10:14 duloxetine (From Cymbalta) AdvReac Mild Intolerance, Verified 09/29/24 10:14 elevated BP, elevated HR erythromycin base AdvReac Mild GI upset Verified 09/29/24 10:14 monosodium glutamate AdvReac Mild Severe Verified 09/29/24 10:14 Headache niacin AdvReac Mild Intolerance Verified 09/29/24 10:14 rosuvastatin (From Crestor) AdvReac Mild Myalgia Verified 09/29/24 10:14 Huan's wort AdvReac Mild NEEDS Verified 09/29/24 10:14 FOLLOW-UP sucralose (From Splenda AdvReac Mild Severe Verified 09/29/24 10:14 (sucralose)) Headaches Family History Other Alzheimer disease Cancer Diabetes Heart disease Hypertension Osteoarthritis Surgical History Hx of bladder repair surgery History of hysterectomy Hx of colonoscopy with polypectomy History of esophagogastroduodenoscopy (EGD) Hx of breast surgery Hx of foot surgery Hx of dilation and curettage Hx of shoulder surgery H/O vein stripping H/O umbilical hernia repair Tubal ligation status S/P TKR (total knee replacement) Social History household members: none housing: house current occupational status: employed current occupation: [employer] Smoking Status: Former smoker alcohol intake: current alcohol intake frequency: holidays/special occasions only what type of physical activity do you participate in: walking seatbelt use: always do you feel safe at home: Yes ROS Constitutional Constitutional: Denies fatigue, fever(s), poor appetite, weight gain or weight loss Gastrointestinal Gastrointestinal: Denies belching, bloating, change in bowel habits, change in stool character, chewing difficulty, coffee ground emesis, constipation, cramping, diarrhea, dyspepsia, dysphagia, early satiety, excessive flatus, fecal incontinence, heartburn, hematemesis, hematochezia, hemorrhoids, loose stools, melena, nausea, odynophagia, rectal bleeding, tenesmus, vomiting or weight changes Physical Exam Const alert, oriented x3, no apparent distress and healthy appearing General Appearance: cooperative GI normal to inspection, nondistended, normoactive bowel sounds, soft to palpation, non-tender and non-distended Percussion: normal to percussion Rectal Exam: deferred Assessment & Plan Assessment/Plan (1) Tubular adenoma of colon: PLAN: Assessment and Plan Assessment and Plan (1) Gallstones: Status: Acute Plan: Patient is here today for f/u. She has been doing well overall. She is having constipation nausea and vomiting since being on narcotics s/p shoulder surgery. -She would like to wait to try any medications for constipation. She will only be on narcotics for one more week and is hoping this will relive her symptoms. She will call our office if she continues to have problems. -Will order liver elastography to monitor fatty liver. Last stiffness was wnl in 2022. This will also be helpful to see if she still has gallstones. She has been taking ursodiol. -She has a hx of tubular adenomas. Last colonoscopy was 07/2021. Recommendation per chart was to have another in 5 years. Since she is having these problems she would like to get it sooner. -We will schedule her for colonoscopy and she will f/u after this (2) Fatty liver: Status: Chronic Orders:
[2024-09-29 11:00] LABS: Bedside Glucose 137 mg/dL (74-106)
--- NOTE | 2024-09-29 11:00 | COLBX_PTH ---
PATIENT: CESAR THAKUR LOC: EN U#:[id number] AGE/SX: 64/F ROOM: RE09/29/[address]: Dr. Doug Tamez DO : 1960 BED: DIS: 09/29/2024 SPEC #: [id number] RECD: 09/30/24 13:58 STATUS: SUSI RERoshan #: [id number] PATI: 09/29/24 11:[address]: Doug Tamez DEPT: SURGICAL PATHOLOGY RECD BY: Nhan Aquino ENTERED: 09/30/24 13:58 SP TYPE: COLON BX NATASHA DR: Dr. Tre Grady MD Tissues: A - Sigmoid colon biopsy Procedures: Surgery Specimen Level IV HEADER OPERATION: Colonoscopy with biopsy PRE-OP DIAGNOSIS: Tubular adenoma of colon TISSUE SUBMITTED: A- Sigmoid biopsy MICROSCOPIC DIAGNOSIS A. SIGMOID COLON, BIOPSY: * POLYPOID COLONIC MUCOSA WITH MUCOSAL LYMPHOID AGGREGATE. * NEGATIVE FOR DYSPLASIA (DEEPER SECTIONS EXAMINED). MICROSCOPIC DESCRIPTION Slides are reviewed. GROSS DESCRIPTION A. Received in fixative is one container labeled with the patient's name and designated Sigmoid biopsy. The specimen consists of two irregular fragments of light brannon soft tissue that in aggregate measure 0.4 x 0.3 x 0.2 cm. The specimen is totally submitted in one cassette. [place]/ 09/30/2024 CPT:50853
--- NOTE | 2024-09-29 11:04 | PCM.PRE.AN2 ---
ASA Classification* ASA Classification ASA Classification: 3 Assessment & Plan Anesthesia* Anesthesia Assessment Anesthesia Assessment: Discussed sedation and/or anesthesia options, risks, benefits, and alternatives with patient/parents/legal guardian/POA. Questions invited. The patient/parents/legal guardian/POA seems to understand and agrees to proceed with anesthesia plan. Reviewed the physical assessment, medical history, allergy history and patient home medications list prior to surgery/procedure/anesthetic and documented any changes. Performed airway and anesthesia risk assessments. Anesthesia Type Anesthesia Type: MAC History Source History Obtained from:: Patient and Chart Anesthesia Focused Assessment* Temperature: 97.3 F Pulse Rate: 71 Blood Pressure: 146/84 Respiratory Rate: 16 Pulse Ox: 100 Oxygen Delivery Method: Room Air Airway Assessment Mouth opens: >3 cm Mallampati Score: III Teeth Condition: Dentures (Patient has full upper and lower dentures.) Neck Range of motion (ROM): Limited ROM (Somewhat decreased extension) Focused Labs Anesthesia Preop lab: CBC WBC 11.5 K/mm3 (4.4-11.0) H 09/15/21 15:07 09/15/21 RBC 4.98 M/mm3 (4.2-5.4) 09/15/21 15:07 09/15/21 Hgb 14.0 g/dL (12.0-15.0) 09/15/21 15:07 09/15/21 Hct 43.4 % (37-47) 09/15/21 15:07 09/15/21 Plt Count 282 K/mm3 (150-450) 09/15/21 15:07 09/15/21 CHEMISTRY Potassium 4.3 mmol/L (3.5-5.1) 09/15/21 15:07 09/15/21 Sodium 137 mmol/L (136-145) 09/15/21 15:07 09/15/21 BUN 23 mg/dL (7-18) H 09/15/21 15:07 09/15/21 Creatinine 1.12 mg/dL (0.55-1.02) H 09/15/21 15:07 09/15/21 Glucose 138 mg/dL (74-106) H 09/15/21 15:07 09/15/21 POC Glucose 137 mg/dL (74-106) H 09/29/24 10:25 COAG Pre-Assessment Diagnosis/Proposed Procedure Planned Operative Procedure(s): Colonoscopy Anesthesia History Anesthesia History - nonprofit manager: Anesthesia History - nonprofit manager Hx Hospitalization No 08/01/21 09:17 Any Problems With Anesthesia No 08/01/21 09:17 Cholinesterase deficiency No 08/01/21 09:17 You/Your Family Experience No 08/01/21 09:17 fever (hyperthermia) with Relationship Recent Exposure to Contagious No 09/29/24 10:18 Disease Does patient have nerve No 08/01/21 09:17 stimulator Patient instructed to have device shut off --Does patient have Pacemaker No 09/29/24 10:18 or ICD? When Was Last Pacemaker Check QUESTION #4 FULL TEXT: You/Your Family Experience fever (hyperthermia) with Anesthesia Last Oral Intake Last Oral intake: Last Oral Intake NPO since 06:00 09/29/24 10:18 Meds taken in AM with sips of Yes 09/29/24 10:18 water? Meds patient instructed to take am of surgery Any additional information?: Yes NPO since: 06:30 (Patient finished prep at 6:30 AM.) Meds taken in AM with sips of water?: Yes PONV PONV - nonprofit manager: PONV - nonprofit manager Female HX of Motion Sickness HX of N/V After Surgery Non-Smoker Duration of Surgery greater than 60 minutes Number of Risk Factors PONV Score Height & Weight Height & Weight: Anesthesia: Height & Weight Height 5 ft 6 in 09/29/24 10:18 Weight: 85 kg 09/29/24 10:18 Body Mass Index (BMI) 30.2 09/29/24 10:18 Respiratory Assessment Respiratory Assessment - nonprofit manager: Respiratory Tract Infection Hx - nonprofit manager Hx Respiratory Tract Infection No 08/01/21 09:17 Any additional information?: Yes Hx Respiratory Tract Infection: Yes (Patient had a recent chest cold. Still recovering.) STOP Sleep Apnea STOP Sleep Apnea - nonprofit manager: STOP Sleep Apnea - nonprofit manager Hx Hypertension Yes: CONTROLLED WITH MEDS 08/01/21 09:17 Hx Sleep Apnea No 08/01/21 09:17 CPAP BIPAP Do you snore loudly (louder than talking or can be heard Do you often feel tired/ fatigued/ sleepy during daytime? Has anyone observed you stop breathing during sleep? STOP Results QUESTION #5 FULL TEXT : Do you snore loudly (louder than talking or can be heard through closed doors)? Tobacco Use History Tobacco Use History - nonprofit manager: Tobacco Use History - nonprofit manager Tobacco Use Smoking Status Former smoker 10/20/22 10:57 Hx Tobacco Use No 08/01/21 09:17 Years Smoking Packs Smoked per Day Smoking Cessation Date was within the last 15 years Hx Smoking Cessation Date 07/09/17 08/01/21 09:17 Hx Smoking Cessation No 08/01/21 09:17 Counseling Hematologic Medial History Hematologic Hx - nonprofit manager: Hematologic Medical Hx - ob gyn physician assistant Hx of Blood Transfusion Hx of Transfusion in last 3 Months Date of Last Transfusion (if within last 3 months) Ever experience any problems with transfusion(s)? Specify any problems Hx of Preganancy in last 3 Months Nurse Filling Out Transfusion & Questions: Date: Time: Patient unable to answer at this time (ie. confused, unrespo /Reproduction History /Reproductive History - nonprofit manager: /Reproductive Hx- nonprofit manager Hx Now Gestational Age (in weeks): EDC: Hx Hx Para Hx Section SAB No 08/01/21 09:17 PFS Medical History Fibromuscular dysplasia GCA (giant cell arteritis) Type 2 diabetes mellitus Wears glasses Wears dentures Depression Anxiety Alcohol use Abrasion History of steroid therapy Diabetes Arthritis History of renal disease Hx of temporal arteritis Anemia Fatty liver Easy bruising Restless legs Back pain Migraine headache History of fibromuscular dysplasia Syncope Dietary restriction History of diverticulosis Former smoker Shortness of breath on exertion Leg cramps History of edema History of stress test Cardiology follow-up encounter History of irregular heartbeat Chest pain Hx of flexible sigmoidoscopy History of use of contraceptive intrauterine device (IUD) Heart palpitations Fibromuscular dysplasia of renal artery Controlled type 2 diabetes mellitus DRUJ (distal radioulnar joint) arthrosis, 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, thumb, degenerative Pain in joint, hand Chondromalacia of patella Dizziness and giddiness Cervicalgia Benign neoplasm of colon Edema Fibromyalgia Obesity Osteoarthrosis Esophageal reflux Hyperlipidemia HTN (hypertension) uterine ablation Rectocele Home Medications ?Medication ?Instructions ?Recorded ?Last Taken ?Type albuterol sulfate 90 mcg/actuation 2 puff inhalation Q6H PRN SOB 07/30/20 Unknown History aerosol inhaler amlodipine 5 mg tablet 5 mg PO QHS 07/30/20 09/28/24 History aspirin 81 mg tablet,delayed 81 mg PO DAILY 07/30/20 09/25/24 History release (Adult Low Dose Aspirin) benzonatate 100 mg capsule 100 mg PO PRN PRN Cough 07/30/20 Unknown History coenzyme Q10 75 mg capsule (Ultra 200 mg PO DAILY 07/30/20 Unknown History CoQ10) hydrochlorothiazide 50 mg tablet 25 mg PO DAILY 07/30/20 09/29/24 06:30 History lisinopril 20 mg tablet 40 mg PO DAILY 07/30/20 09/29/24 06:30 History loratadine 10 mg capsule 10 mg PO DAILY PRN ALLERGIES 07/30/20 Unknown History methocarbamol 500 mg tablet 1,000 mg PO PRN PRN MUSCLE SPASMS 07/30/20 Unknown History nadolol 80 mg tablet 40 tab PO BID 07/30/20 09/29/24 06:30 History nystatin 100,000 unit/gram topical 1 applic topical DAILY PRN Skin 07/30/20 Unknown History powder Cleansing calcium carb-ergocalciferol (vit 1 tab PO DAILY 08/01/21 Unknown History D2) 600 mg calcium-200 unit tablet omeprazole 20 mg tablet,delayed 20 mg PO DAILY 08/01/21 09/28/24 History release Bacillus coagulans-Bacillus 1 tab PO DAILY #90 tabs 08/22/21 Unknown Rx subtilis 1 billion cell chewable tablet (up4 Probiotics-Mind and Body) ibuprofen 600 mg tablet 800 mg PO PRN PRN Pain 09/15/21 09/28/24 History metformin 500 mg tablet,extended 500 mg PO DAILY 09/15/21 09/27/24 History release 24hr (osmotic) vitamin B complex (B 1 tab PO DAILY 09/15/21 Unknown History Complex-Vitamin B12 tablet) phytonadione (vitamin K1) 100 mcg 100 mcg PO DAILY 03/04/24 Unknown History tablet Held on 09/29/24. Instructions: pt out of maria esther ursodiol 300 mg capsule See Rx Instructions .Route .COMPLEX 03/04/24 Unknown History ursodiol 300 mg capsule 300 mg PO BID #90 caps 05/08/24 09/28/24 Rx Allergy/AdvReac Type Severity Reaction Status Date / Time gabapentin Allergy Severe Depression, Verified 09/29/24 10:14 suicidal thoughts cat dander Allergy Mild unknown Verified 09/29/24 10:14 latex Allergy Mild Redness, Verified 09/29/24 10:14 itching niacinamide Allergy Mild Facial Verified 09/29/24 10:14 Numbness rabbit dander Allergy Mild SOB Verified 09/29/24 10:14 aspartame AdvReac Mild Severe Verified 09/29/24 10:14 Headache atorvastatin AdvReac Mild Muscle Verified 09/29/24 10:14 Aches azithromycin (From Zithromax) AdvReac Mild GI upset Verified 09/29/24 10:14 doxycycline AdvReac Mild GI upset Verified 09/29/24 10:14 duloxetine (From Cymbalta) AdvReac Mild Intolerance, Verified 09/29/24 10:14 elevated BP, elevated HR erythromycin base AdvReac Mild GI upset Verified 09/29/24 10:14 monosodium glutamate AdvReac Mild Severe Verified 09/29/24 10:14 Headache niacin AdvReac Mild Intolerance Verified 09/29/24 10:14 rosuvastatin (From Crestor) AdvReac Mild Myalgia Verified 09/29/24 10:14 Huan's wort AdvReac Mild NEEDS Verified 09/29/24 10:14 FOLLOW-UP sucralose (From Splenda AdvReac Mild Severe Verified 09/29/24 10:14 (sucralose)) Headaches Family History Other Alzheimer disease Cancer Diabetes Heart disease Hypertension Osteoarthritis Surgical History Hx of bladder repair surgery History of hysterectomy Hx of colonoscopy with polypectomy History of esophagogastroduodenoscopy (EGD) Hx of breast surgery Hx of foot surgery Hx of dilation and curettage Hx of shoulder surgery H/O vein stripping H/O umbilical hernia repair Tubal ligation status S/P TKR (total knee replacement) Social History household members: none housing: house current occupational status: employed current occupation: [employer] Smoking Status: Former smoker alcohol intake: current alcohol intake frequency: holidays/special occasions only what type of physical activity do you participate in: walking seatbelt use: always do you feel safe at home: Yes Review of Systems (Anesthesia) ROS Narrative System reviewed and no additional complaints, except as documented.
--- NOTE | 2024-09-29 11:49 | OP.CCLET_ITS ---
09/29/2024 [address] [place] [address] Re : Colonoscopy procedure for Crystal Bushldalton Dear Dr. Grady This procedure was performed on Sunday, September 29, 2024. My impressions and recommendations are as follows: Impressions : - Diverticulosis in the recto-sigmoid colon and in the sigmoid colon. - One 5 mm polyp in the sigmoid colon, removed with a cold biopsy forceps. Resected and retrieved. - The examination was otherwise normal on direct and retroflexion views. Recommendations : - Discharge patient to home. - Resume previous diet. - Continue present medications. - Await pathology results. - Repeat colonoscopy in 5 years for surveillance. My findings are described in the full procedure note, which is enclosed. If I can be of further assistance, please feel free to contact me at . Sincerely, Doug Tamez, 09/29/2024 11:48:33 AM This report has been signed electronically.
--- NOTE | 2024-09-29 11:49 | OP.COLON_ITS ---
Patient Name: Crystal Edwards Procedure Date: 09/29/2024 11:16 AM Date of : 1960 Age: 64 Procedure: Colonoscopy Indications: Screening for colorectal malignant neoplasm Providers: Doug Tamez DO Medicines: Monitored Anesthesia Care Patient Profile: This is a 64 year old female. Refer to note in patient chart for documentation of history and physical. Last Colonoscopy: 5 years ago. Complications: No immediate complications. Procedure: Pre-Anesthesia Assessment: - Prior to the procedure, a History and Physical was performed, and patient medications and allergies were reviewed. The patient is competent. The risks and benefits of the procedure and the sedation options and risks were discussed with the patient. All questions were answered and informed consent was obtained. Patient identification and proposed procedure were verified by the physician in the pre-procedure area. Mental Status Examination: alert and oriented. Airway Examination: normal oropharyngeal airway and neck mobility. Respiratory Examination: clear to auscultation. CV Examination: normal. Prophylactic Antibiotics: The patient does not require prophylactic antibiotics. Prior Anticoagulants: The patient has taken no anticoagulant or antiplatelet agents except for NSAID medication. ASA Grade Assessment: II - A patient with mild systemic disease. After reviewing the risks and benefits, the patient was deemed in satisfactory condition to undergo the procedure. The anesthesia plan was to use monitored anesthesia care (MAC). Immediately prior to administration of medications, the patient was re-assessed for adequacy to receive sedatives. The heart rate, respiratory rate, oxygen saturations, blood pressure, adequacy of pulmonary ventilation, and response to care were monitored throughout the procedure. The physical status of the patient was re-assessed after the procedure. After I obtained informed consent, the scope was passed under direct vision. Throughout the procedure, the patient's blood pressure, pulse, and oxygen saturations were monitored continuously. The colonoscope was introduced through the anus and advanced to the cecum, identified by the appendiceal orifice, ileocecal valve and palpation. The colonoscopy was performed without difficulty. The patient tolerated the procedure well. Scope In: 11:26:03 AM Scope Withdrawal Time 0 hours 11 minutes 37 seconds Scope Out: 11:41:57 AM Total Procedure Duration Time 0 hours 15 minutes 54 seconds Findings: The perianal and digital rectal examinations were normal. Multiple small and large-mouthed diverticula were found in the recto-sigmoid colon and sigmoid colon. A 5 mm polyp was found in the sigmoid colon. The polyp was sessile. The polyp was removed with a cold biopsy forceps. Resection and retrieval were complete. Verification of patient identification for the specimen was done. Estimated blood loss was minimal. The exam was otherwise without abnormality on direct and retroflexion views. Impression: - Diverticulosis in the recto-sigmoid colon and in the sigmoid colon. - One 5 mm polyp in the sigmoid colon, removed with a cold biopsy forceps. Resected and retrieved. - The examination was otherwise normal on direct and retroflexion views. Recommendation: - Discharge patient to home. - Resume previous diet. - Continue present medications. - Await pathology results. - Repeat colonoscopy in 5 years for surveillance. Procedure Code(s): --- Professional --- 34201, Colonoscopy, flexible; with biopsy, single or multiple CPT copyright 2021 [employer]. All rights reserved. The codes documented in this report are preliminary and upon pediatric hospitalist review may be revised to meet current compliance requirements. Doug Tamez DO 09/29/2024 11:48:33 AM This report has been signed electronically. Number of Addenda: 0 Note Initiated On: 09/29/2024 11:16 AM
--- NOTE | 2024-09-29 11:49 | PCM.POST.ANE ---
Anesthesia: Postop Eval I Current Vital Signs Temperature: 98.5 F Pulse Rate: 68 Blood Pressure: 127/72 Respiratory Rate: 16 Pulse Ox: 98 Oxygen Delivery Method: Room Air Assessment Airway patent: Yes Spontaneous unlabored respirations: Yes Mental status: Awake and Calm nausea: No Vomiting: No Anesthesia Complication: No Fluid Hydration Crystalloid volume administer (ml): 45 Total IV fluid infused: 45 Progress Note Anesthesia document: Postop Eval 1 completed: Yes
== END 2024-09-29 12:39 | disposition home or self-care (01) ==
LOC: EN 09:59 → AC 10:05
PROVIDERS: PCP Family Medicine; Referring Provider Family Medicine; Visit Provider Internal Medicine Gastroenterology
PROC: 0DJD8ZZ Inspection of Lower Intestinal Tract, Via Natural or Artificial Opening Endoscopic (ICD-10-PCS; CPT 45378; principal; 2024-09-29 10:55)
DX: Z12.11 Encounter for screening for malignant neoplasm of colon (principal); E11.9 Type 2 diabetes mellitus without complications; K57.30 Diverticulosis of large intestine without perforation or abscess without bleeding; I10 Essential (primary) hypertension; K80.20 Calculus of gallbladder without cholecystitis without obstruction; E78.5 Hyperlipidemia, unspecified; Z87.891 Personal history of nicotine dependence; K21.9 Gastro-esophageal reflux disease without esophagitis; Z79.899 Other long term (current) drug therapy; Z79.84 Long term (current) use of oral hypoglycemic drugs; Z87.19 Personal history of other diseases of the digestive system; K63.5 Polyp of colon
CPT/HCPCS: 45380; 82962; 88305; A4216; J2405

== ENCOUNTER → 2025-01-07 | Outpatient (CLI) | payer MEDICAID, SELFPAY ==
[2025-01-08 18:08] LABS: Pancreatic Elastase, Fecal 528 (>200)
[2025-01-09 01:07] LABS: Calprotectin, Stool 127 ug/g (0-120)
== END | disposition home or self-care (01) ==
LOC: LAB 09:28
PROVIDERS: PCP Family Medicine; Referring Provider Student in an Organized Health Care Education/Training Program; Visit Provider Student in an Organized Health Care Education/Training Program
DX: K58.0 Irritable bowel syndrome with diarrhea (principal)
CPT/HCPCS: 82653; 83630; 83993; 87177; 87209; 87329; 87493; 87506

== ENCOUNTER → 2025-05-15 | Outpatient (CLI) | payer MEDICAID, SELFPAY ==
--- NOTE | 2025-05-15 08:15 | US_ITS ---
PROCEDURE: ABD LIMITED W/ ELASTOGRAPHY REASON FOR EXAM: FATTY LIVER COMPARISON: Prior study dated March 21, 2024. TECHNIQUE: Procedure Code: [id number] Modality: US Procedure: ABD LIMITED W/ ELASTOGRAPHY Right upper quadrant abdominal ultrasound. [employer] Elast[facility] shear wave elastography for non-invasive assessment of liver tissue stiffness. [facility] EPIQ Elite. FINDINGS: LIVER: Size: Unremarkable Length: 16.4 cm Echotexture: Diffusely echogenic suggesting fatty infiltration Contour: Normal Lesions: None identified Elastography: EQI Med: 6.3 kPa EQI Med Francisco J: 1.44 m/s IQR/Med: 20.5 %* GALLBLADDER: Multiple gallstones. COMMON BILE DUCT: Normal measuring 3.2 mm . PANCREAS: Normal The right kidney measures 11 cm 6 cm 5.5 cm. There are 2, intrarenal nonobstructive calculi. The larger measures 5 mm x 6 mm x 2 mm. No right upper quadrant ascites. US/ABD Limited w/ Elastography IMPRESSION: Mild hepatic fibrosis. Fatty infiltration of the liver. Multiple gallstones. Tiny nonobstructive right intrarenal calculi. Reference Values: SRU <1.37 m/s (5.7kPa): No to mild fibrosis 1.37 m/s - 2.2 m/s: Moderate to severe fibrosis >2.2 m/s (15kPa): Significant fibrosis / cirrhosis METAVIR Score F2 or higher: 1.34 m/s (5.7kPa) F3 or higher: 1.55 m/s (7.3kPa) F4: 1.80 m/s (10kPa) * If the IQR/Med is >30%, the variance in the measurements is a large and the a ccuracy of the measurement may be in question. Reading Location: [facility]
--- OUTSIDE RECORDS SUMMARY | 2025-05-15 08:36 | XMS RPT_ITS | CCD ---
Author Organization [facility] CliniSynv Care Team Providers Care Silk Snapper Name Role Phone Gabbie Grady MD Primary Care Provider Dr. Gabbie Grady Primary Care Provider Friend, Dr. Camacho Attending Provider [phone] Dr. Doug Tamez Referring Provider [phone] Dr. Doug Tamez Other Provider [phone] Gabbie Grady Referring Provider [phone] Jeremy GOLF RANGE ATTENDANT, GOLF RANGE ATTENDANT-C Hilda Martinez Attending Provider [phone] Dr. Abner Ventura Attending Provider DR GABBIE GRADY MD Primary Care Physician Gabbie Grady MD Primary Care Provider Gabbie Grady MD Primary Care Provider Gabbie Grady MD Primary Care Provider Dr. Gabbie Grady Primary Care Provider Dr. Gabbie Grady Referring Provider Dr. Mihir Alicea Attending Provider GABBIE GRADY Primary Care Unavailable KRIS JAIME Attending Unavailable KRIS JAIME Admitting Unavailable Gabbie Grady MD Primary Care Provider GABBIE GRADY Referring Unavailable GABBIE GRADY Primary Care Unavailable GABBIE GRADY Referring Unavailable GABBIE GRADY Primary Care Unavailable WILMAR VIVAR Attending Unavailab le GABBIE GRADY Primary Care Unavailable GABBIE GRADY Primary Care Unavailable WILMAR VIVAR Referring Unavailab le ELDERGABBIE RIDDLE Primary Care Unavailable ABRAHANWILMAR KUMAR Attending Unavailab le ELDERGABBIE RIDDLE Primary Care Unavailable ABRAHAN, WILMAR MOCTEZUMA Attending Unavailab le ELDERBROJULIET, GABBIE Irving Primary Care Unavailable VITO CONTRERAS Attending Unavailable WILMAR VIVAR Attending Unavailab le ABRAHANWILMAR KUMAR Admitting Unavailab le ELDERGABBIE RIDDLE Primary Care Unavailable ELDERJANESSA, GABBIE Irving Primary Care Unavailable VITO CONTRERAS Attending Unavailable Howie HULL, Renate Silva Unavailable Unavailable YSABEL LUIS, DR CARTWRIGHT Primary Care Unavailab adonay CHRISTIANSON MD, DR TRINI Duncan Attending Brianavajacky jiménez Tannhobrenda ROUTE SALES DRIVER.YADIRA, Xochilt Unavailable Jaydon ROUTE SALES DRIVER.YADIRA, Jaskaran Unavailable Ysabel LUIS, Dr. Cartwright Primary Care Provider Ysabel LUIS, Dr. Cartwright Referring Provider Friend , Dr. Camacho Attending Provider Friend DO, Dr. Camacho Other Provider Tannhobrenda ROUTE SALES DRIVER.YADIRA Xochilt Unavailable Unavail able Tannhof ROUTE SALES DRIVER.YADIRA, Xochilt Unavailable Parul Brooks Attending Provider Parul Brooks Referring Provider Gabbie Grady Referring Unavailable Parul Edwards Attending Unavailable Gabbie Grady Primary Care Unavailable Parul Edwards Attending Unavailable Parul Edwards Referring Unavailable Gabbie Grady Primary Care Unavailable FriendDoug Consulting Unavailable Gabbie Grady Primary Care Unavailable Parul Edwards Attending Unavailable Parul Edwards Referring Unavailable Gabbie Grady Referring Unavailable Gabbie Grady Primary Care Unavailable Friend, Doug Attending Unavailable FriendDoug Consulting Unavailable Ysabel, Gabbie Primary Care Unavailable FriendDoug Attending Unavailable Gabbie Grady Referring Unavailable Gabbie Grady Referring Unavailable Parul Edwards Attending Unavailable Gabbie Grady Primary Care Unavailable GABBIE GRADY Attending Unavailable GABBIE GRADY Primary Care Unavailable GABBIE GRADY Referring Unavailable GABBIE GRADY Primary Care Unavailable GABBIE GRADY Attending Unavailable GABBIE GRADY Primary Care Unavailable LANCE MOCTEZUMA Attending Unavailable GABBIE GRADY Primary Care Unavailable LANCE MOCTEZUMA Referring Unavailable DARCYGABBIE RIDDLE Primary Care Unavailable DARCYGABBIE RIDDLE Primary Care Unavailable GABBIE GRADY Attending Unavailable GABBIE GRADY Primary Care Unavailable GABBIE GRADY Referring Unavailable GABBIE GRADY Primary Care Unavailable Allergies Allergy Classification Reported Allergen(s) Allergy Type Date of Onset Reaction(s) Facility Anti-Epileptic Agents (1 source) gabapentin Drug Allergy 09-21-19 18 Other: See Comments [facility] Aspartame (1 source) Aspartame Drug Allergy 09-13-19 Other: See Comments [facility] Cats (1 source) Cat Animal Allergy (Dander) 01-23-20 Shortness of Breath [facility] Work Phone: Cephalosporins (antibiotic) (1 source) Cephalexin Drug Allergy 03-29-20 21 GI Upset [facility] Doxycycline (1 source) Doxycycline Drug Allergy 01-23-20 GI Upset [facility] DULoxetine (1 source) DULoxetine Drug Allergy 04-24-20 Other: See Comments [facility] Glutamate (1 source) Glutamate Drug Allergy 08-20-19 Unknown [facility] HMG-CoA Reductase Inhibitors (statins) (2 sources) atorvastatin Drug Allergy 11-10-19 17 Myalgia [facility] Latex (1 source) Latex Substance Allergy 09-13-19 07 Itching [facility] Macrolides (antibiotic) (2 sources) Erythromycin Drug Allergy 01-23-20 07 GI Upset [facility] Niacin (1 source) Niacin Drug Allergy 01-23-20 07 Intolerance [facility] Niacinamide (1 source) Niacinamide Drug Allergy 09-13-19 Other: See Comments [facility] Opioid Agonists (1 source) oxyCODONE Drug Allergy 05-14-20 Other: See Comments [facility] HUAN'S WORT EXTRACT (1 source) HUAN'S WORT EXTRACT Drug Allergy 01-23-20 Other: See Comments [facility] (20 sources) Aspartame; Translations: [ASPARTAME] Drug Allergy 09-13-19 Other: See Comments, Atorvastatin (product) [facility] (20 sources) atorvastatin; Translations: [atorvastatin] Drug Allergy 11-10-19 17 Myalgia [facility] (20 sources) Azithromycin; Translations: [azithromycin] Drug Allergy 01-15-20 15 GI Upset [facility] (20 sources) Cat; Translations: [CATS] Allergy to substance 01-23-20 07 Shortness of Breath [facility] Work Phone: (20 sources) Cephalexin; Translations: [CEPHALEXIN] Drug Allergy 03-29-20 21 GI Upset [facility] (20 sources) Doxycycline; Translations: [doxycycline] Drug Allergy 01-23-20 GI Upset [facility] (20 sources) DULoxetine; Translations: [duloxetine] Drug Allergy 04-24-20 Other: See Comments [facility] (20 sources) Erythromycin; Translations: [erythromycin] Drug Allergy 01-23-20 GI Upset [facility] (20 sources) gabapentin; Translations: [GABAPENTIN] Drug Allergy 09-21-19 18 Other: See Comments [facility] (20 sources) Glutamate; Translations: [GLUTAMIC ACID] Drug Allergy 08-20-19 Unknown [facility] Work Phone: (20 sources) Latex; Translations: [LATEX] Drug Allergy 09-13-19 07 Itching [facility] (20 sources) Niacin; Translations: [niacin] Drug Allergy 01-23-20 07 Intolerance [facility] (20 sources) Niacinamide; Translations: [nicotinamide] Drug Allergy 09-13-19 Other: See Comments [facility] (20 sources) oxyCODONE; Translations: [OXYCODONE] Drug Allergy 05-14-20 20 Other: See Comments [facility] (20 sources) rosuvastatin; Translations: [ROSUVASTATIN] Drug Allergy 12-11-19 Myalgia [facility] (20 sources) HUAN'S WORT EXTRACT; Translations: [San German's wort] Drug Allergy 01-23-20 07 Other: See Comments [facility] (20 sources) Monosodium Glutamate (Msg); Translations: [MONOSODIUM GLUTAMATE (MSG)] Food Intolerance 09-13-19 07 Other: See Comments [facility] (20 sources) Rabbit Dander; Translations: [RABBIT DANDER] Drug Allergy 10-09-19 19 Shortness of Breath [facility] (20 sources) splenda [Other] Propensity to adverse reactions 09-13-19 Other: See Comments [facility] (20 sources) Sucralose; Translations: [SUCRALOSE] Drug Allergy 08-20-19 Unknown [facility] (5 sources) Glutamate Drug Allergy 09-16-19 Severe Headache [facility] (6 sources) cat dander; Translations: [cat dander] Allergy to substance 09-16-19 unknown [facility] (1 source) st gregg wart Propensity to adverse reactions 08-01-19 Intolerance [facility] Work Phone: (2 sources) MSG Drug allergy [facility] (2 sources) Splenda Drug allergy [facility] (1 source) OTHER; Translations: [OTHER] Propensity to adverse reactions (disorder) 09-13-19 [facility] Other [place] [facility] (1 source) Aspartame Drug Allergy 09-30-19 [facility] Repository (1 source) atorvastatin Drug Allergy 09-30-19 [facility] Repository (1 source) Azithromycin Drug Allergy 09-30-19 [facility] Repository (1 source) Doxycycline Drug Allergy 09-30-19 [facility] Repository (1 source) DULoxetine Drug Allergy 09-30-19 [facility] Repository (1 source) Erythromycin Drug Allergy 09-30-19 [facility] Repository (1 source) gabapentin Drug Allergy 09-30-19 [facility] Repository (1 source) Latex Drug allergy (disorder) 09-30-19 [facility] Repository (1 source) Niacin Drug Allergy 09-30-19 [facility] Repository (1 source) Niacinamide Drug Allergy 09-30-19 [facility] Repository (1 source) rosuvastatin Drug Allergy 09-30-19 [facility] Repository (1 source) monosodium glutamate Drug allergy (disorder) 09-30-19 [facility] Repository (1 source) San German's wort Drug allergy (disorder) 09-30-19 [facility] Repository (1 source) sucralose Drug allergy (disorder) 09-30-19 [facility] Repository Medications Current Medications Medication Drug Class(es) Dates Sig (Normalized) Sig (Original) acetaminophen 325 mg / HYDROcodone bitartrate 5 mg oral tablet (20 sources) Opioid Agonist Start: 02-01-2024 End: 02-15-2024 take 1 tablet by mouth every six hours as needed for pain HYDROcodone-acetami nophen (NORCO) 5-325 mg per tablet Indications: S/P left rotator cuff repair Take one tablet by mouth every 6 hours as needed for postoperative pain 28 tablet 0 02/08/2024 02/15/2024 Active Start: 01-25-2024 End: 01-28-2024 take 1-2 tablets by mouth every four hours as needed for pain HYDROcodone-acetaminophen (NORCO) 5-325 mg per tablet Indications: S/P left rotator cuff repair Take 1-2 tablets by mouth every 4 hours as needed for pain for up to 3 days. 28 tablet 0 01/25/2024 01/28/2024 Active Start: 08-30-2022 End: 09-02-2022 take 1 tablet by mouth every eight hours as needed for pain HYDROcodone-acetaminophen (NORCO) 5-325 mg per tablet Indications: Non-recurrent bilateral inguinal hernia without obstruction or gangrene Take 1 tablet by mouth every 8 hours as needed for pain for up to 3 days. 5 tablet 0 08/30/2022 09/02/2022 Active Start: 12-20-2021 End: 12-23-2021 take 1 tablet by mouth every eight hours as needed for pain HYDROcodone-acetaminophen (NORCO) 5-325 mg per tablet Indications: Acute midline low back pain without sciatica Take 1 tablet by mouth every 8 hours as needed for pain for up to 3 days. 9 tablet 0 12/20/2021 12/23/2021 Active Start: 12-01-2021 End: 12-04-2021 take 1 tablet by mouth every eight hours as needed for pain HYDROcodone-acetaminophen (NORCO) 5-325 mg per tablet Indications: Acute midline low back pain without sciatica Take 1 tablet by mouth every 8 hours as needed for pain for up to 3 days. 9 tablet 0 12/01/2021 12/04/2021 Active Start: 11-16-2021 End: 11-19-2021 take 1 tablet by mouth every eight hours as needed for pain HYDROcodone-acetaminophen (NORCO) 5-325 mg per tablet Indications: Acute midline low back pain without sciatica Take 1 tablet by mouth every 8 hours as needed for pain for up to 3 days. 9 tablet 0 11/16/2021 11/19/2021 Active Start: 11-09-2021 End: 11-12-2021 take 1 tablet by mouth every eight hours as needed for pain HYDROcodone-acetaminophen (NORCO) 5-325 mg per tablet Indications: Acute midline low back pain without sciatica Take 1 tablet by mouth every 8 hours as needed for pain for up to 3 days. 9 tablet 0 11/09/2021 11/12/2021 Active Start: 10-31-2021 End: 11-03-2021 take 1 tablet by mouth every eight hours as needed for pain HYDROcodone-acetaminophen (NORCO) 5-325 mg per tablet Indications: Acute midline low back pain without sciatica Take 1 tablet by mouth every 8 hours as needed for pain for up to 3 days. 9 tablet 0 10/31/2021 11/03/2021 Active Start: 10-24-2021 End: 10-28-2021 take 1 tablet by mouth every eight hours as needed for pain HYDROcodone-acetaminophen (NORCO) 5-325 mg per tablet Indications: Acute midline low back pain without sciatica Take 1 tablet by mouth every 8 hours as needed for pain for up to 3 days. 9 tablet 0 10/24/2021 10/28/2021 Discontinued Start: 07-30-2020 End: 08-20-2020 Hydrocodone-Acetaminophen 5- 325 mg tablet Discontinued NMA PO 0 July 30, 2020 1:00am August 20, 2020 11:38am Start: 07-30-2020 End: 08-20-2020 Hydrocodone-Acetaminophen Di scontinued EACH PO July 30, 2020 2:40pm August 20, 2020 11:38am Comment on above: Take 1 tablet by carlos th every 8 hours as needed for pain for up to 3 days. [id number] 200 actuat albuterol 0.09 mg/actuat metered dose inhaler (20 sources) beta2-Adrenergic Agonist Start: 07-30-2020 Albuterol Sulfate 90 mcg/actuation HFA aerosol inhaler Active 2 NMA INHALATION EVERY 6 HOURS as needed for SOB July 30, 2020 1:00am Start: 07-30-2020 take 1 puff(s) by in halation every six hours Albuterol Sulfate Active 2 PUFF INHALATION EVERY 6 HOURS July 30, 2020 2:36pm Start: 06-10-2020 End: 05-25-2024 take 2 puff(s) by inhalation every four hours as needed albuterol HFA (PROVENTIL HFA, VENTOLIN HFA) 90 mcg/actuation inhaler Indications: Cough Inhale 2 Puffs as instructed every 4 hours as needed. 18 g 5 05/26/2024 Active Comment on above: Inhale 2 Puffs as in structed every 4 hours as needed. amLODIPine 10 mg oral tablet (20 sources) Dihydropyridine Calcium Channel Narinder Start: End: take 1 tablet by mouth once daily amLODIPine (NORVASC) 10 mg tablet Indications: Essential hypertension, benign Take 1 tablet by mouth once daily. 90 tablet 3 07/01/2024 07/01/2025 Active Start: 03-22-2019 End: 06-30-2022 take 1 tablet by mouth at bedtime Amlodipine 5 mg tablet Active 5 mg PO AT BEDTIME July 30, 2020 1:00am Comment on above: Take 1 tablet by carlos th once daily. aspirin 81 mg delayed release oral tablet (20 sources) Platelet Aggregation Inhibitor, Nonsteroidal Anti-inflammatory Drug Start: 11-27-2018 End: 07-29-2021 take 1 tablet by mouth once daily aspirin, enteric coated (ASPIR-LOW) 81 mg EC tablet Take 1 tablet by mouth once daily. 30 tablet 11 07/29/2021 Active Comment on above: Take 1 tablet by carlos th once daily. Aspirin Enteric Coated 81 mg oral delayed release tablet (2 sources) Start: 03-22-2019 Aspirin Enteric Coated 81 mg oral delayed release tablet 0 Refill(s) Start Date: 03/22/19 Status: Ordered Bacillus Coagulans-B. Subtilis (Up4 Probiotics-Mind And Body) 1 billion cell tablet,chewable (5 sources) Start: 08-22-2021 Bacillus Coagulans-B. Subtilis (Up4 Probiotics-Mind And Body) 1 billion cell tablet,chewable Active 1 TABLET PO DAILY August 22, 2021 12:57pm Start: 08-22-2021 take 1 tablet by carlos th once daily Bacillus Coagulans-B. Subtilis (Up4 Probiotics-Mind And Body) 1 billion cell tablet,chewable Active 1 {tbl} PO DAILY August 22, 2021 1:00am Start: 08-22-2021 take 1 tablet by carlos th once daily Bacillus Coagulans-B. Subtilis (Up4 Probiotics-Mind And Body) 1 billion cell tablet,chewable Active 1 {tbl} PO DAILY August 22, 2021 1:00am Start: 08-22-2021 Bacillus Coagu lans-B. Subtilis (Up4 Probiotics-Mind And Body) 1 billion cell tablet,chewable Active 1 TABLET PO DAILY August 22, 2021 12:00am benoxinate hydrochloride 4 mg/ml / fluorescein sodium 2.5 mg/ml ophthalmic solution (1 source) Diagnostic Dye Start: 10-06-2021 End: 10-06-2021 fluorescein-benoxinate 0.25-0.4 % 1 Drop (FLURESS) benzonatate 100 mg oral capsule (20 sources) Non-narcotic Antitussive Start: 06-10-2020 End: 07-01-2024 take 1 capsule by mouth three times daily as needed for cough benzonatate (TESSALON PERLE) 100 mg capsule Indications: Sinobronchitis Take 1 capsule by mouth three times a day as needed for cough. 30 capsule 1 07/01/2024 Active Comment on above: Take 1 capsule by mo [facility] three times daily as needed for cough. Blood-Glucose Meter,Continuous (FREESTYLE HUGH 3 READER) misc (18 sources) Start: 07-03-2024 Blood-Glucose Meter,Continuous (FREESTYLE HUGH 3 READER) misc Indications: Controlled type 2 diabetes mellitus without complication, without long-term current use of insulin (HCC) Use as directed to monitor glucose level 1 Each 07/03/2024 Active Blood-Glucose Sensor (FREESTYLE HUGH 3 SENSOR) cierra (19 sources) Start: 11-20-2024 Blood-Glucose Sensor (FREESTYLE HUGH 3 SENSOR) cierra Indications: Controlled type 2 diabetes mellitus without complication, without long-term current use of insulin (HCC) Use as directed to monitor glucose level 5 each 3 11/20/2024 Active Start: 07-03-2024 End: 11-20-2024 Blood-Glucose Sensor (FREEST YLE HUGH 3 SENSOR) cierra Indications: Controlled type 2 diabetes mellitus without complication, without long-term current use of insulin (HCC) Use as directed to monitor glucose level 5 Each 3 07/03/2024 11/20/2024 Discontinued Start: 07-03-2024 Blood-Glucose Sensor (FREESTYLE HUGH 3 SENSOR) cierra Indications: Controlled type 2 diabetes mellitus without complication, without long-term current use of insulin (HCC) Use as directed to monitor glucose level 5 Each 3 07/03/2024 Active Calcium Carbonate / vitamin D3 (20 sources) take 1 tablet by carlos th twice daily calcium carbonate/vitamin D3 (CALCIUM WITH VITAMIN D ORAL) Take 1 tablet by mouth twice daily. 600 mg calcium with 1000mg vitamin D3 Active take 1 tablet by mouth twice rob ly calcium carbonate/vitamin D3 (CALCIUM WITH VITAMIN D ORAL) Take 1 tablet by mouth twice daily. 600 mg calcium with 1000mg vitamin D3 0 Active Comment on above: Take 1 tablet by carlos th twice daily. 600 mg calcium with 1000mg vitamin D3 Calcium Carbonate-Vitamin D2 (Calcium + Vitamin D) 600 mg calcium- 200 unit Tablet (5 sources) Start: 08-01-2021 take 1 tablet by mouth once daily Calcium Carbonate-Vitamin D2 (Calcium + Vitamin D) 600 mg calcium- 200 unit Tablet Active 1 TABLET PO DAILY August 01, 2021 10:04am Start: 08-01-2021 Calcium Carbon ate-Vitamin D2 (Calcium + Vitamin D) 600 mg calcium- 200 unit Tablet Active 1 {tbl} PO DAILY August 01, 2021 1:00am Start: 08-01-2021 take 1 tablet by carlos th once daily Calcium Carbonate-Vitamin D2 (Calcium + Vitamin D) 600 mg calcium- 200 unit Tablet Active 1 TABLET PO DAILY August 01, 2021 12:00am cloNIDine hydrochloride 0.1 mg oral tablet (20 sources) Central alpha-2 Adrenergic Agonist Start: 04-28-2024 End: 10-23-2025 take 1 tablet by mouth twice daily cloNIDine HCl (CATAPRES) 0.1 mg tablet Indications: Essential hypertension, benign Take 1 tablet by mouth two times a day. 60 tablet 11 10/23/2024 10/23/2025 Active colestipol hydrochloride 1000 mg oral tablet (7 sources) Bile Acid Sequestrant Start: 01-01-2025 Colestipol 1 gram tablet Active 2 g PO daily 60 0 January 01, 2025 12:00am Start: 06-29-2021 End: 09-15-2021 Colestipol 1 gram tablet Discontinued 2 g PO EVERY EVENING 60 1 June 29, 2021 1:00am September 15, 2021 3:10pm Start: 06-29-2021 End: 09-15-2021 take 2 g by mouth once daily in the evening Colestipol Discontinued 2 GM PO EVERY EVENING 60 June 29, 2021 12:28pm September 15, 2021 3:10pm [facility] Q[facility]10 100 MG SOFTGEL (2 sources) Start: 03-22-2019 [facility] Q[facility]10 100 MG SOFTGEL [facility] Q-10 100 MG SOFTGEL, 0 Refill(s) Start Date: 03/22/19 Status: Ordered hydroCHLOROthiazide 25 mg oral tablet (20 sources) Thiazide Diuretic Start: 11-03-2024 take 1 tablet by mouth once daily hydroCHLOROthiazide 25 mg tablet Indications: Essential hypertension, benign Take 1 tablet by mouth once daily. 90 tablet 3 11/03/2024 Active Start: 06-30-2022 End: 11-03-2023 take 1 tablet by mouth once daily hydroCHLOROthiazide 25 mg tablet Indications: Essential hypertension, benign Take 1 tablet by mouth once daily. 90 tablet 3 11/03/2023 Active Start: 07-30-2020 Hydrochlorothi azide 50 mg tablet Active 25 mg PO DAILY July 30, 2020 1:00am Start: 07-30-2020 take 25 mg by mouth once daily Hydrochlorothiazide Active 25 MG PO DAILY July 30, 2020 2:35pm Start: 03-22-2019 End: 06-30-2022 hydroCHLOROthiazide 50 mg or al tablet 0 Refill(s) Start Date: 03/22/19 Status: Ordered Comment on above: take 1 tablet by carlos th once daily if needed Take 1 tablet by carlos th once daily. ibuprofen 800 mg oral tablet (20 sources) Nonsteroidal Anti-inflammatory Drug Start: 09-15-2021 Ibuprofen 600 mg tablet Active 800 mg PO NEEDED as needed for Pain September 15, 2021 3:11pm Start: 09-15-2021 Ibuprofen Acti ve 800 MG PO NEEDED September 15, 2021 2:11pm Start: 12-15-2020 End: 04-04-2024 take 1 tablet by mouth every six hours as needed for pain ibuprofen (MOTRIN) 800 mg tablet Indications: Acute right ankle pain Take 1 tablet by mouth every 6 hours as needed for pain. 360 tablet 3 04/04/2024 Active Start: 06-10-2020 End: 09-15-2021 Ibuprofen 600 mg tablet Disc ontinued 600 mg PO NEEDED as needed for Pain July 30, 2020 1:00am September 15, 2021 3:14pm Start: 04-20-2020 End: 06-10-2020 take 1 tablet by mouth every eight hours as needed for pain ibuprofen (MOTRIN) 600 mg tablet Indications: Fibromyalgia Take 1 tablet by mouth every 8 hours as needed for Pain. 90 tablet 3 04/20/2020 06/10/2020 Discontinued Comment on above: Take 1 tablet by carlos th every 6 hours as needed for pain. lisinopril 20 mg oral tablet (20 sources) Angiotensin Converting Enzyme Inhibitor Start: 07-30-2020 take 40 mg by mouth once daily Lisinopril Active 40 MG PO DAILY July 30, 2020 2:35pm Start: 06-10-2020 End: 11-20-2024 take 2 tablets by mouth once daily lisinopril (ZESTRIL) 20 mg tablet Indications: Essential hypertension, benign Take 2 tablets by mouth once daily. 180 tablet 3 11/20/2024 Active Comment on above: Take 2 tablets by mo [facility] once daily. take 2 tablets by mo [facility] once daily loratadine 10 mg oral capsule (20 sources) Start: 07-30-2020 take 1 capsule by mouth once daily as needed Loratadine 10 mg capsule Active 10 mg PO DAILY as needed for ALLERGIES July 30, 2020 1:00am Start: 10-31-2011 take 1 tablet by carlos th once daily loratadine (CLARITIN) 10 mg ORAL tablet Indications: Environmental allergies Take 1 tablet by mouth once daily. 10/31/2011 Active Comment on above: Take 1 tablet by carlos th once daily. LORazepam 0.5 mg oral tablet (3 sources) Benzodiazepine Start: 04-26-2024 End: 04-29-2024 Ativan 0.5 mg oral tablet Dose : 0.5 mg = 1 tab(s), Oral, TID, PRN as needed for anxiety, X 3 day(s), # 9 tab(s), 0 Refill(s), 04/29/24 12:59:00 PM EDT, Hypertension, 88.5 Start Date: 04/26/24 Stop Date: 04/29/24 Status: Ordered Start: 09-15-2017 End: 09-18-2017 Ativan 0.5 mg oral tablet Do se : 0.5 mg = 1 tab(s), Oral, TID, PRN for anxiety, # 15 tab(s), 0 Refill(s), Hypertension Start Date: 09/15/17 Stop Date: 09/18/17 Status: Ordered Magnesium (5 sources) Start: 08-01-2021 take 200 mg by mouth once daily Magnesium Active 200 MG PO DAILY August 01, 2021 10:04am Start: 08-01-2021 End: 03-04-2024 take 1 tablet by mouth once daily Magnesium 200 mg Tablet Discontinued 200 mg PO DAILY August 01, 2021 1:00am March 04, 2024 9:28am Start: 08-01-2021 take 200 mg by mouth once alisia y Magnesium Active 200 MG PO DAILY August 01, 2021 12:00am 24 hr metFORMIN hydrochloride 500 mg extended release oral tablet (20 sources) Biguanide Start: 08-05-2024 End: 08-05-2025 take 3 tablets by mouth once daily at breakfast metFORMIN ER (GLUCOPHAGE XR) 500 mg 24 hr tablet Indications: Controlled type 2 diabetes mellitus without complication, without long-term current use of insulin (HCC) Take 3 tablets by mouth daily with breakfast. 270 tablet 3 08/05/2024 08/05/2025 Active Start: 10-31-2021 End: 02-08-2024 take 1 tablet by mouth once daily at breakfast metFORMIN ER (GLUCOPHAGE XR) 500 mg 24 hr tablet Indications: Controlled type 2 diabetes mellitus without complication, without long-term current use of insulin (HCC) Take 1 tablet by mouth daily with breakfast. 90 tablet 3 02/08/2024 Active Start: 09-15-2021 take 1 tablet by carlos th once daily Metformin 500 mg tablet extended release 24hr Active 500 mg PO DAILY September 15, 2021 3:11pm Start: 07-12-2021 End: 10-28-2021 take 3 tablets by mouth once daily at breakfast metFORMIN ER (GLUCOPHAGE XR) 500 mg 24 hr tablet Indications: Controlled type 2 diabetes mellitus without complication, without long-term current use of insulin (HCC) Take 3 tablets by mouth daily with breakfast. 270 tablet 3 07/12/2021 10/28/2021 Discontinued Start: 07-30-2020 End: 09-15-2021 take 1 tablet by mouth three times daily Metformin 500 mg tablet extended release 24hr Discontinued 500 mg PO THREE TIMES A DAY July 30, 2020 1:00am September 15, 2021 3:14pm Start: 06-10-2020 End: 09-21-2020 take 1 tablet by mouth twice daily metFORMIN ER (GLUCOPHAGE XR) 500 mg 24 hr tablet Indications: Controlled type 2 diabetes mellitus without complication, without long-term current use of insulin (HCC) Take 1 tablet by mouth twice daily. 180 tablet 3 06/10/2020 09/21/2020 Discontinued Start: 03-22-2019 End: 09-15-2021 take 1 tablet by mouth twice daily Metformin 500 mg tablet Discontinued 500 mg PO TWICE A DAY September 15, 2021 1:00am September 15, 2021 3:57pm Start: 03-22-2019 End: 12-29-2021 take 1 tablet by mouth three times daily at mealtime metFORMIN (GLUCOPHAGE) 500 mg tablet Indications: Controlled type 2 diabetes mellitus without complication, without long-term current use of insulin (HCC) Take 1 tablet by mouth three times daily with meals. 270 tablet 3 09/01/2021 12/29/2021 Discontinued Comment on above: Take 3 tablets by mo [facility] daily with breakfast. Take 1 tablet by carlos three times daily with meals. methocarbamol 500 mg oral tablet (20 sources) Muscle Relaxant Start: 07-30-19 End: 02-25-20 take 2 tablets by mouth three times daily as needed for pain methocarbamol (ROBAXIN) 500 mg tablet Indications: Fibromyalgia Take 2 tablets by mouth three times a day. As needed for pain 180 tablet 2 02/24/2025 Active Start: 07-30-2020 Methocarbamol Active 1000 MG PO NEEDED July 30, 2020 2:35pm Start: 04-20-2020 End: 03-16-2021 take 1 tablet by mouth twice daily methocarbamol (ROBAXIN) 500 mg tablet Indications: Fibromyalgia Take 1 tablet by mouth twice daily. 60 tablet 11 04/20/2020 09/21/2020 Discontinued Comment on above: Take 2 tablets by mo ut three times daily. As needed for pain Take 2 tablets by mo uth three times a day. As needed for pain nadolol 80 mg oral tablet (20 sources) beta-Adrenergic Narinder Start: 06-30-2022 End: 09-24-2023 take 1 tablet by mouth twice daily nadolol (CORGARD) 40 mg tablet Indications: Essential hypertension, benign Take 1 tablet by mouth two times a day. 180 tablet 3 09/24/2023 Active Start: 06-10-2020 End: 06-30-2022 take 0.5 tablet by mouth twice daily nadolol (CORGARD) 80 mg tablet Take 0.5 tablets by mouth twice daily. 90 tablet 3 12/07/2021 06/30/2022 Discontinued Start: 03-22-2019 End: 10-17-2025 take 1 tablet by mouth twice daily nadolol (CORGARD) 80 mg tablet Indications: Essential hypertension, benign Take 1 tablet by mouth two times a day. 60 tablet 11 10/22/2024 10/17/2025 Active Comment on above: Take 0.5 tablets by mouth twice daily. Take 1 tablet by carlos twice daily. Take 1 tablet by carlos th two times a day. nortriptyline 25 mg oral capsule (20 sources) Tricyclic Antidepressant Start: 11-17-19 End: 05-25-20 take 1 capsule by mouth once daily at bedtime nortriptyline (PAMELOR) 25 mg capsule Indications: Fibromyalgia Take 1 capsule by mouth daily at bedtime. 30 capsule 11 05/26/2024 Active Start: 03-22-2019 nortriptyline 10 mg oral capsule 0 Refill(s) Start Date: 03/22/19 Status: Ordered Comment on above: Take 1 capsule by mo [facility] daily at bedtime. nystatin 100 unt/mg topical powder (20 sources) Polyene Antifungal Start: 12-21-2022 End: 05-25-2024 nystatin (MYCOSTATIN) powder Apply 1 application to affected area as needed. 60 g 5 05/26/2024 Active Start: 08-22-2021 End: 08-29-2021 take [id number] [IU] by mouth twice daily Nystatin 100,000 unit/mL suspension Discontinued [id number] U PO TWICE A DAY 70 7 0 August 22, 2021 1:00am August 28, 2021 1:00am August 29, 2021 1:03am swish and swallow twice a day Start: 07-30-2020 Nystatin 100,0 00 unit/gram powder Active 1 NMA TOPICAL DAILY as needed for Skin Cleansing July 30, 2020 1:00am Start: 07-30-2020 Nystatin Activ e 1 APPLIC TOPICAL DAILY July 30, 2020 2:39pm Comment on above: Apply 1 application to affected area as needed. omeprazole 20 mg delayed release oral capsule (20 sources) Proton Pump Inhibitor Start: 5 take 1 capsule by mouth twice daily omeprazole (PRILOSEC) 20 mg capsule Indications: Abdominal bloating , Pain of upper abdomen Take 1 capsule by mouth two times a day. 180 capsule 3 12/25/2024 Active Start: 08-01-2021 End: 01-01-2025 take 1 tablet by mouth once daily Omeprazole 20 mg tablet,delayed release (DR/EC) Active 20 mg PO DAILY January 01, 2025 1:04pm Start: 05-11-2021 End: 12-25-2024 take 1 capsule by mouth once daily before breakfast omeprazole (PRILOSEC) 20 mg capsule Indications: Abdominal bloating , Pain of upper abdomen Take 1 capsule by mouth daily before breakfast. 1/2 hr before meal. 90 capsule 3 12/05/2024 12/25/2024 Discontinued Comment on above: Take 1 capsule by mo [facility] daily before breakfast. 1/2 hr before meal. ondansetron 4 mg oral tablet (20 sources) Serotonin-3 Receptor Antagonist Start: take 1 tablet by mouth every eight hours as needed for nausea and nausea ondansetron (ZOFRAN) 4 mg tablet Indications: Nausea Take 1 tablet by mouth every 8 hours as needed. 30 tablet 2 01/21/2024 Active Start: 08-30-2022 take 1 tablet by carlos every six hours as needed ondansetron (ZOFRAN) 4 mg tablet Take 1 tablet by mouth every 6 hours as needed. 10 tablet 0 08/30/2022 Active Start: 09-27-2021 End: 07-04-2023 take 1 tablet by mouth every eight hours as needed for nausea and nausea ondansetron (ZOFRAN) 4 mg tablet Indications: Nausea Take 1 tablet by mouth every 8 hours as needed. 30 tablet 2 07/04/2023 Active Comment on above: Take 1 tablet by carlos th every 8 hours as needed. Take 1 tablet by carlos th every 6 hours as needed. phenylephrine hydrochloride 25 mg/ml ophthalmic solution (1 source) alpha-1 Adrenergic Agonist Start: End: PHENYLephrine 2.5 % 1 Drop (AK-DILATE, AIDEN-SYNEPHRINE) proparacaine hydrochloride 5 mg/ml ophthalmic solution (1 source) Local Anesthetic Start: End: proparacaine 0.5 % 1 Drop (ALCAINE) sulfamethoxazole 800 mg / trimethoprim 160 mg oral tablet (2 sources) Dihydrofolate Reductase Inhibitor Antibacterial, Sulfonamide Antimicrobial Start: End: take 1 tablet by mouth twice daily sulfamethoxazole-tri methoprim (BACTRIM DS) 800-160 mg per tablet Take 1 tablet by mouth two times a day for 7 days. 14 tablet 09/02/2024 09/09/2024 Active traMADol hydrochloride 50 mg oral tablet (13 sources) Opioid Agonist Start: End: take 1 tablet by mouth every six hours as needed for pain traMADol (ULTRAM) 50 mg tablet Indications: S/P left rotator cuff repair Take one tablet by mouth every 6 hours as needed for pain. 28 tablet 03/04/2024 03/11/2024 Active Start: 10-19-2021 End: 10-24-2021 take 1 tablet by mouth every four hours as needed for pain traMADol (ULTRAM) 50 mg tablet Indications: Acute midline low back pain without sciatica Take 1 tablet by mouth every 4 hours as needed for pain for up to 3 days. 12 tablet 0 10/19/2021 10/24/2021 Discontinued Comment on above: Take 1 tablet by carlos th every 4 hours as needed for pain for up to 3 days. traZODone hydrochloride 50 mg oral tablet (6 sources) Serotonin Reuptake Inhibitor Start: End: take 1 tablet by mouth once daily at bedtime traZODone (DESYREL) 50 mg tablet Indications: Drug-induced insomnia (HCC) Take 1 tablet by mouth daily at bedtime. 30 tablet 2 08/08/2021 11/06/2021 Active Comment on above: Take 1 tablet by carlos th daily at bedtime. tropicamide 10 mg/ml ophthalmic solution (1 source) Anticholinergic Start: End: tropicamide 1 % 1 Drop (MYDRIACYL) ubidecarenone 100 mg oral capsule (20 sources) Start: End: take 2 capsules by mouth once daily coenzyme Q10 (CO Q-10) 100 mg cap capsule Indications: Mixed hyperlipidemia Take 2 capsules by mouth once daily. 60 capsule 11 12/05/2024 Active Start: 09-27-2021 End: 10-16-2022 take 2 capsules by mouth once daily coenzyme Q10 (CO Q-10) 100 mg cap capsule Indications: Mixed hyperlipidemia Take 2 capsules by mouth once daily. 60 capsule 11 10/16/2022 Active Start: 07-30-2020 Coenzyme Q10 ( Ultra Coq10) 75 mg capsule Active 200 mg PO DAILY July 30, 2020 1:00am Start: 11-27-2018 End: 07-29-2021 take 1 capsule by mouth once daily coenzyme Q10 (CO Q-10) 100 mg cap capsule Indications: Mixed hyperlipidemia Take 1 capsule by mouth once daily. 30 capsule 11 11/27/2018 07/29/2021 Discontinued Comment on above: Take 2 capsules by [facility] once daily. Vitamin B Complex (B Complex-Vitamin B12) tablet (5 sources) Start: 09-15-2021 take 1 tablet by mouth once daily Vitamin B Complex (B Complex-Vitamin B12) tablet Active 1 TABLET PO DAILY September 15, 2021 3:14pm Start: 09-15-2021 Vitamin B Comp beck (B Complex-Vitamin B12) tablet Active 1 {tbl} PO DAILY September 15, 2021 1:00am Start: 09-15-2021 take 1 tablet by carlos th once daily Vitamin B Complex (B Complex-Vitamin B12) tablet Active 1 TABLET PO DAILY September 15, 2021 12:00am VITAMIN B COMPLEX ORAL (20 sources) Start: 09-15-2021 VITAMIN B COMP BECK ORAL Take by mouth once daily. 09/15/2021 Active Start: 09-15-2021 VITAMIN B COMP BECK ORAL Take by mouth once daily. 0 09/15/2021 Active vitamin E mixed/tocotrienol (VITAMIN E COMPLEX ORAL) (20 sources) vitamin E mixed/ tocotrienol (VITAMIN E COMPLEX ORAL) Take by mouth. Active VITAMIN K2 ORAL (20 sources) take 100 ug by mouth once daily VITAMIN K2 ORAL Take 100 mcg by mouth once daily. Active take 100 ug by mouth once daily VITAMIN K2 ORAL Take 100 mcg by mouth once daily. 0 Active Comment on above: Take 100 mcg by mout h once daily. Completed/Discontinued Medications Medication Drug Class(es) Dates Sig (Normalized) Sig (Original) ascorbic acid 1000 mg oral tablet (1 source) Vitamin C End: 07-12-2021 take 1 tablet by mouth once daily Ascorbic Acid (VITAMIN C) 1,000 mg tablet Take 1,000 mg by mouth once daily. 07/12/2021 Discontinued Cranberry Batj-M-Matzhqmz Coag (5 sources) Non-Standardized Food Allergenic Extract, Non-Standardized Plant Allergenic Extract, Vitamin C Start: 08-01-2021 End: 09-15-2021 take 2 tablets by mouth once daily Cranberry Pyat-C-Pvrytucg Coag (Azo Cranberry Plus Probiotic) 250-30-50 [id number] Tablet Discontinued 2 TABLET PO DAILY August 01, 2021 10:04am September 15, 2021 3:10pm Start: 08-01-2021 End: 09-15-2021 Cranberry Yafp-O-Ywqmreci Co ag (Azo Cranberry Plus Probiotic) 250-30-50 rz-bg-[id number] Tablet Discontinued 2 {tbl} PO DAILY August 01, 2021 1:00am September 15, 2021 3:10pm Start: 08-01-2021 End: 09-15-2021 take 2 tablets by mouth once daily Cranberry Ekty-O-Rxjyrozd Coag (Azo Cranberry Plus Probiotic) 250-30-50 zj-jd-[id number] Tablet Discontinued 2 TABLET PO DAILY August 01, 2021 12:00am September 15, 2021 2:10pm berberine/herbal complex no. 18 (BERBERINE-HERBAL COMB NO.18 ORAL) (20 sources) End: 01-17-2024 berberine/herbal complex no. 18 (BERBERINE-HERBAL COMB NO.18 ORAL) Take by mouth. 0 01/17/2024 Discontinued (Other) berberine/herbal complex no.18 (BERBERINE-HERBAL COMB NO.18 ORAL) Take by mouth. 0 Active Comment on above: Take by mouth. betamethasone 3 mg/ml / betamethasone acetate 3 mg/ml injectable suspension (3 sources) Corticosteroid Start: 04-23-2023 End: 04-23-2023 betamethasone acetate-betamethasone sodium phosphate 3 mg injection (CELESTONE) Start: 03-05-2023 End: 03-05-2023 betamethasone acetate-betame thasone sodium phosphate 6 mg injection (CELESTONE) Start: 03-27-2022 End: 03-27-2022 betamethasone acetate-betame thasone sodium phosphate 6 mg injection (CELESTONE) biotin 1 mg oral capsule (20 sources) End: 12-21-2022 biotin 1 mg cap Take by mouth. 12/21/2022 Discontinued Comment on above: Take by mouth. bisacodyl 5 mg delayed release oral tablet (5 sources) Stimulant Laxative Start: 06-29-2021 End: 09-15-2021 take 1 tablet by mouth once Bisacodyl 5 mg tablet,delayed release (DR/EC) Discontinued 5 mg PO ONCE 4 0 June 29, 2021 1:00am September 15, 2021 3:09pm take as directed for bowel prep CHOLECALCIFEROL, VITAMIN D3, (VITAMIN D3 ORAL) (1 source) End: 09-08-2021 CHOLECALCIFEROL, VITAMIN D3, (VITAMIN D3 ORAL) Take by mouth once daily. 09/08/2021 Discontinued COMPOUNDED PRESCRIPTION (1 source) Start: 02-10-2019 End: 03-29-2021 COMPOUNDED PRESCRIPTION Indications: Leg swelling , Venous stasis Thigh high toeless compression hose 20-30 mmHg pressure gradient 2 Each 1 02/10/2019 03/29/2021 Discontinued docusate sodium 100 mg oral capsule (20 sources) Start: 01-21-2024 End: 07-03-2024 take 1 capsule by mouth twice daily docusate sodium (COLACE) 100 mg capsule Indications: S/P left rotator cuff repair take 1 capsule by mouth twice a day 30 capsule 1 02/11/2024 07/03/2024 Discontinued (Course of therapy completed) estradiol 0.1 mg/ml vaginal cream (20 sources) Estrogen Start: 06-03-2021 End: 12-29-2021 estradiol (ESTRACE) 0.01 % (0.1 mg/gram) vaginal cream Indications: Atrophic vaginitis Use 3 g vaginally once daily. Finger-tip amount of creme applied as directed in [facility] 42.5 g 3 06/03/2021 12/29/2021 Discontinued Comment on above: Use 3 g vaginally on ce daily. Finger-tip amount of creme applied as directed in [facility] 1 ml evolocumab 140 mg/ml auto-injector (1 source) PCSK9 Inhibitor Start: 12-25-2019 End: 06-10-2020 inject 140 mg by subcutaneous injection every other week evolocumab 140 mg/mL subcutaneous pen injector (REPATHA SURECLICK) Indications: Fibromuscular dysplasia (HCC) , Aortic atherosclerosis (HCC) , Mixed hyperlipidemia , Statin intolerance Inject 140 mg subcutaneously every 2 weeks. 6 Pen 3 12/25/2019 06/10/2020 Discontinued FREESTYLE HUGH 14 DAY SENSOR kit (20 sources) Start: 03-18-2024 End: 12-25-2024 FREESTYLE HUGH 14 DAY SENSOR kit Indications: Controlled type 2 diabetes mellitus without complication, without long-term current use of insulin ([facility]) apply NEW SENSOR EVERY 14 DAYS TO UPPER ARM 2 Kit 5 03/18/2024 12/25/2024 Discontinued Start: 03-18-2024 FREESTYLE LIBR E 14 DAY SENSOR kit Indications: Controlled type 2 diabetes mellitus without complication, without long-term current use of insulin (HCC) apply NEW SENSOR EVERY 14 DAYS TO UPPER ARM 2 Kit 5 03/18/2024 Active Start: 11-19-2023 End: 03-18-2024 FREESTYLE HUGH 14 DAY SENSO R kit Indications: Controlled type 2 diabetes mellitus without complication, without long-term current use of insulin ([facility]) apply NEW SENSOR EVERY 14 DAYS TO UPPER ARM 2 Kit 5 11/19/2023 03/18/2024 Discontinued Start: 11-19-2023 FREESTYLE LIBR E 14 DAY SENSOR kit Indications: Controlled type 2 diabetes mellitus without complication, without long-term current use of insulin ([facility]) apply NEW SENSOR EVERY 14 DAYS TO UPPER ARM 2 Kit 5 11/19/2023 Active Start: 06-02-2023 End: 11-17-2023 FREESTYLE HUGH 14 DAY SENSO R kit Indications: Controlled type 2 diabetes mellitus without complication, without long-term current use of insulin ([facility]) apply NEW SENSOR EVERY 14 DAYS TO UPPER ARM 2 Kit 5 06/02/2023 11/17/2023 Discontinued Start: 06-02-2023 FREESTYLE LIBR E 14 DAY SENSOR kit Indications: Controlled type 2 diabetes mellitus without complication, without long-term current use of insulin ([facility]) apply NEW SENSOR EVERY 14 DAYS TO UPPER ARM 2 Kit 5 06/02/2023 Active Start: 12-21-2022 End: 06-02-2023 FREESTYLE HUGH 14 DAY SENSO R kit Indications: Controlled type 2 diabetes mellitus without complication, without long-term current use of insulin ([facility]) apply NEW SENSOR EVERY 14 DAYS TO UPPER ARM 2 Kit 5 12/21/2022 06/02/2023 Discontinued Start: 12-21-2022 FREESTYLE LIBR E 14 DAY SENSOR kit Indications: Controlled type 2 diabetes mellitus without complication, without long-term current use of insulin ([facility]) apply NEW SENSOR EVERY 14 DAYS TO UPPER ARM 2 Kit 5 12/21/2022 Active Start: 08-10-2022 End: 12-21-2022 FREESTYLE HUGH 14 DAY SENSO R kit apply NEW SENSOR EVERY 14 DAYS TO UPPER ARM 1 Kit 11 08/10/2022 12/21/2022 Discontinued Start: 08-10-2022 FREESTYLE LIBR E 14 DAY SENSOR kit apply NEW SENSOR EVERY 14 DAYS TO UPPER ARM 1 Kit 11 08/10/2022 Active Start: 08-22-2021 End: 08-10-2022 FREESTYLE HUGH 14 DAY SENSO R kit apply NEW SENSOR EVERY 14 DAYS TO UPPER ARM 08/22/2021 08/10/2022 Discontinued Start: 08-22-2021 End: 08-10-2022 FREESTYLE HUGH 14 DAY SENSO R kit apply NEW SENSOR EVERY 14 DAYS TO UPPER ARM 0 08/22/2021 08/10/2022 Discontinued Start: 08-22-2021 FREESTYLE LIBR E 14 DAY SENSOR kit apply NEW SENSOR EVERY 14 DAYS TO UPPER ARM 0 08/22/2021 Active Comment on above: apply NEW SENSOR LORENZO RY 14 DAYS TO UPPER ARM hydrALAZINE (1 source) Arteriolar Vasodilator Start: 04-26-20 End: 04-26-20 hydrALAZINE Start: 04/26/24 11:00:00 AM EDT, Dose = 20 mg, = 1 mL, IV Push, Once, Stop: 04/26/24 11:22:49 AM EDT, 04/26/24 10:52:00 EDT Start Date: 04/26/24 Stop Date: 04/26/24 Status: Completed lactobacillus acidophilus [id number] unt oral capsule (20 sources) Start: 08-22-19 End: 12-22-19 lactobacillus acidophilus 100 mg (1 billion cell) cap(s) Take 1 capsule by mouth once daily. 08/22/2021 12/21/2022 Discontinued Comment on above: Take 1 capsule by [facility] once daily. lactobacillus acidophilus [id number] unt / pectin 100 mg oral capsule (20 sources) Start: 10-12-19 End: 12-26-19 take 1 capsule by mouth once daily Lactobacillus acidoph-pectin 75 million cell -100 mg cap Take 1 capsule by mouth once daily. 10/11/2021 12/25/2024 Discontinued 10 ml lidocaine hydrochloride 10 mg/ml injection (3 sources) Antiarrhythmic, Amide Local Anesthetic Start: 04-23-20 End: 04-23-20 lidocaine (PF) 10 mg/mL (1 %) 4 mL injection (XYLOCAINE) Start: 03-05-2023 End: 03-05-2023 lidocaine (PF) 10 mg/mL (1 % ) 4 mL injection (XYLOCAINE) Start: 03-27-2022 End: 03-27-2022 lidocaine (PF) 10 mg/mL (1 % ) 4 mL injection (XYLOCAINE) mecobalamin (1 source) End: 03-29-2021 take 1000 ug by mouth once daily mecobalamin (B12 ACTIVE ORAL) Take 1,000 mcg by mouth once daily. 03/29/2021 Discontinued milk thistle extract 150 mg oral capsule (20 sources) Start: 12-21-2022 End: 12-25-2024 take 1 capsule by mouth once daily Milk Thistle 150 mg cap Take 1 capsule by mouth once daily. 12/21/2022 12/25/2024 Discontinued Start: 12-21-2022 take 1 capsule by [facility] once daily Milk Thistle 150 mg cap Take 1 capsule by mouth once daily. 12/21/2022 Active Start: 12-21-2022 take 1 capsule by [facility] once daily Milk Thistle 150 mg cap Take 1 capsule by mouth once daily. 0 12/21/2022 Active Comment on above: Take 1 capsule by [facility] once daily. oxybutynin chloride 5 mg oral tablet (1 source) Cholinergic Muscarinic Antagonist Start: 05-14-20 End: 06-10-20 take 1 tablet by mouth four times daily as needed for muscle spasms oxybutynin (DITROPAN) 5 mg tablet Indications: Bladder spasms Take 1 tablet by mouth four times daily as needed (bladder spasms). 30 tablet 05/14/2020 06/10/2020 Discontinued phenazopyridine hydrochloride 200 mg oral tablet (20 sources) Start: 05-31-20 End: 12-30-19 take 1 tablet by mouth every eight hours as needed phenazopyridine (PYRIDIUM) 200 mg tablet Take 1 tablet by mouth three times daily as needed. 20 tablet 0 05/31/2021 12/29/2021 Discontinued Comment on above: Take 1 tablet by [facility] three times daily as needed. polyethylene glycol 3350 21660 mg powder for oral solution (5 sources) Osmotic Laxative Start: 06-29-20 End: 09-16-19 Polyethylene Glycol 3350 (Miralax) 17 gram/dose powder Discontinued 17 g PO DAILY 238 0 June 29, 2021 1:00am September 15, 2021 3:13pm take as directed for bowel prep predniSONE 5 mg oral tablet (20 sources) Start: 12-01-19 End: 06-30-20 take 1 tablet by mouth once daily predniSONE (DELTASONE) 5 mg tablet Take 1 tablet by mouth once daily. 90 tablet 12/16/2021 06/30/2022 Discontinued Start: 08-01-2021 End: 10-20-2022 Prednisone 20 mg tablet Disc ontinued 35 mg PO DAILY August 01, 2021 10:12am October 20, 2022 11:09am Start: 08-01-2021 take 35 mg by mouth once daily Prednisone Active 35 MG PO DAILY August 01, 2021 9:12am Start: 06-29-2021 End: 08-01-2021 take 3 tablets by mouth once daily Prednisone 20 mg tablet Discontinued 60 mg PO DAILY 90 0 August 01, 2021 8:58am August 01, 2021 10:12am Start: 06-29-2021 End: 08-01-2021 take 60 mg by mouth once daily Prednisone Discontinued 60 MG PO DAILY 90 August 01, 2021 7:58am August 01, 2021 9:12am End: 11-28-2021 predniSONE (DELTASONE) 20 mg tablet Take 25 mg by mouth once daily. Pt is on a tapering schedule and drops by 2.5 mg every 2 weeks until 20 mg then shcedule will change 0 11/28/2021 Discontinued (Dosage adjustment) Comment on above: Take 25 mg by mouth once daily. Pt is on a tapering schedule and drops by 2.5 mg every 2 weeks until 20 mg then shcedule will change Take 1 tablet by carlos th once daily. ursodiol 300 mg oral capsule (20 sources) Bile Acid Start: 06-29-2021 End: 01-01-2025 take 1 capsule by mouth twice daily Ursodiol 300 mg capsule Discontinued 300 mg PO TWICE A DAY 90 3 May 08, 2024 12:00am January 01, 2025 1:08pm Comment on above: Take 300 mg by mouth twice daily. vitamin k 0.1 mg oral tablet (3 sources) Start: 03-04-2024 take 1 tablet by mouth once daily Phytonadione (Vitamin K1) 100 mcg tablet Active 100 ug PO DAILY March 04, 2024 12:00am On Hold: pt out of [facility] Problems Active Problems Problem Classification Problem Date Documented Da te Episodic/Chronic Abdominal hernia (9 sources) Right inguinal hernia ; Translations: [Unilateral inguinal hernia, without obstruction or gangrene, not specified as recurrent] Onset: 3 Episodic Anxiety disorders (1 source) Anxiety disorder; Translations: [Anxiety disorder, unspecified] Onset: 4 Chronic Biliary tract disease (11 sources) Biliary calculus; Translations: [Calculus of gallbladder without cholecystitis without obstruction] Episodic Chronic obstructive pulmonary disease and bronchiectasis (1 source) Bronchitis, not specified as acute or chronic; Translations: [Sinobronchitis] Onset: 5 Episodic Diabetes mellitus with complications (2 sources) Disorder of nervous system due to type 2 diabetes mellitus; Translations: [Type 2 diabetes mellitus with other diabetic neurological complication] Chronic Diabetes mellitus without complication (20 sources) Type 2 diabetes mellitus without complication; Translations: [Type 2 diabetes mellitus without complications] Onset: 6 12-29-2015 Chronic Disorders of lipid metabolism (20 sources) Hyperlipidemia; Translations: [Hyperlipidemia, unspecified] Onset: 7 11-07-2016 Chronic Diverticulosis and diverticulitis (5 sources) Diverticulitis; Translations: [Diverticulitis of intestine, part unspecified, without perforation or abscess without bleeding] 06-29-2021 Chronic Esophageal disorders (20 sources) Gastroesophageal reflux disease; Translations: [Gastro-esophageal reflux disease without esophagitis] Onset: 8 04-14-2008 Chronic Essential hypertension (20 sources) Benign essential hypertension; Translations: [Essential (primary) hypertension] Onset: 8 04-14-2008 Chronic Glaucoma (1 source) Corticosteroid-induced glaucoma; Translations: [Glaucoma secondary to drugs, unspecified eye, stage unspecified] Chronic Headache; including migraine (5 sources) Headache; Translations: [Headache] 06-29-2021 Episodic Joint disorders and dislocations; trauma-related (20 sources) Chondromalacia of patella; Translations: [Chondromalacia patellae, unspecified knee] Onset: 2 08-30-2011 Chronic Lymphadenitis (5 sources) Disorder of intra-abdominal lymph nodes; Translations: [Localized enlarged lymph nodes] 06-29-2021 Episodic Mycoses (8 sources) Onychomycosis; Translations: [Tinea unguium] Episodic Nutritional deficiencies (20 sources) Vitamin D deficiency; Translations: [Vitamin D deficiency, unspecified] Onset: 9 06-04-2009 Chronic Osteoarthritis (20 sources) Osteoarthritis; Translations: [Osteoarthrosis, unspecified whether generalized or localized, lower leg] Onset: 3 Resolved: 8 04-14-2008 Chronic Other aftercare (1 source) Post-discharge follow-up; Translations: [Encounter for follow-up examination after completed treatment for conditions other than malignant neoplasm] Episodic Other aftercare (2 sources) 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; Translations: [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 systemic 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] Episodic Other aftercare (1 source) Long-term current use of systemic steroid; Translations: [termite exterminator (current) use of systemic steroids] Episodic Other and unspecified benign neoplasm (8 sources) Tubular adenoma of colon; Translations: [Benign neoplasm of colon, unspecified] 08-22-2021 Episodic Other bone disease and musculoskeletal deformities (1 source) Osteopenia; Translations: [Other specified disorders of bone density and structure, unspecified site] 07-03-2024 Episodic Other circulatory disease (20 sources) Fibromuscular dysplasia of wall of artery; Translations: [Arterial fibromuscular dysplasia] Onset: 7 12-25-2019 Chronic Other circulatory disease (2 sources) Arterial fibromuscular dysplasia; Translations: [Other specified disorders of arteries and arterioles] Onset: 0 Chronic Other connective tissue disease (20 sources) History of total knee arthroplasty; Translations: [Presence of right artificial knee joint] Onset: 8 08-23-2017 Chronic Other connective tissue disease (20 sources) Fibromyalgia; Translations: [Fibromyalgia] 08-06-2017 Episodic Other connective tissue disease (2 sources) Pain of toe of left foot; Translations: [Pain in left toe(s)] Episodic Other connective tissue disease (2 sources) Pain of toe of right foot; Translations: [Pain in right toe(s)] Episodic Other connective tissue disease (1 source) Plantar fascial fibromatosis; Translations: [Plantar fascial fibromatosis] Onset: 2 Episodic Other connective tissue disease (1 source) Pain in left foot; Translations: [Pain in left foot] 03-23-2023 Episodic Other connective tissue disease (1 source) Non-traumatic partial tear of left rotator cuff; Translations: [Incomplete rotator cuff tear or rupture of left shoulder, not specified as traumatic] 03-05-2023 Episodic Other connective tissue disease (9 sources) Biceps tendinitis; Translations: [Bicipital tendinitis, left shoulder] Onset: 4 04-23-2023 Episodic Other endocrine disorders (5 sources) Disorder of adrenal gland; Translations: [Disorder of adrenal gland, unspecified] 06-29-2021 Chronic Other gastrointestinal disorders (1 source) Irritable bowel syndrome with diarrhea; Translations: [Irritable bowel syndrome with diarrhea] Onset: 5 Chronic Other gastrointestinal disorders (8 sources) Diarrhea; Translations: [Diarrhea, unspecified] 06-29-2021 Episodic Other gastrointestinal disorders (5 sources) Constipation; Translations: [Constipation, unspecified] 06-29-2021 Episodic Other gastrointestinal disorders (4 sources) Abdominal bloating; Translations: [Abdominal distension (gaseous)] Episodic Other injuries and conditions due to external causes (1 source) Injury of foot; Translations: [Unspecified injury of right foot, initial encounter] Onset: 2 Episodic Other injuries and conditions due to external causes (2 sources) Puncture wound - injury; Translations: [Other injury of unspecified body region, initial encounter] Episodic Other liver diseases (5 sources) Steatosis of liver; Translations: [Fatty (change of) liver, not elsewhere classified] 08-14-2022 Chronic Other liver diseases (1 source) Fatty (change of) liver, not elsewhere classified; Translations: [Fatty (change of) liver, not elsewhere classified] Onset: 5 Chronic Other lower respiratory disease (1 source) Rib pain; Translations: [Pleurodynia] Episodic Other lower respiratory disease (3 sources) Cough; Translations: [Cough] Episodic Other nervous system disorders (2 sources) Neuropathy; Translations: [Polyneuropathy, unspecified] Chronic Other nervous system disorders (1 source) Other chronic pain; Translations: [Chronic left shoulder pain] Onset: 4 Chronic Other non-traumatic joint disorders (2 sources) Shoulder pain; Translations: [Pain in right shoulder] Episodic Other non-traumatic joint disorders (5 sources) Acute ankle pain; Translations: [Pain in right ankle and joints of right foot] Episodic Other non-traumatic joint disorders (2 sources) Pain in left knee; Translations: [Pain in joint, lower leg] Episodic Other non-traumatic joint disorders (4 sources) Chronic pain of left upper limb; Translations: [Pain in left shoulder] 03-05-2023 Episodic Other nutritional; endocrine; and metabolic disorders (20 sources) Obesity; Translations: [Obesity, unspecified] 04-14-2008 Chronic Other nutritional; endocrine; and metabolic disorders (20 sources) Obese class I; Translations: [Obesity, unspecified] Onset: 9 02-07-2019 Chronic Other skin disorders (2 sources) Keratosis; Translations: [Epidermal thickening, unspecified] Episodic Other upper respiratory infections (4 sources) Chronic sinusitis; Translations: [Chronic sinusitis, unspecified] Onset: 5 Chronic Peripheral and visceral atherosclerosis (20 sources) Atherosclerosis of aorta; Translations: [Atherosclerosis of aorta] Onset: 0 12-25-2019 Chronic Prolapse of female genital organs (20 sources) Disorder of rectum; Translations: [Rectocele] Onset: 9 12-31-2018 Chronic Residual codes; unclassified (1 source) Tobacco user; Translations: [Tobacco use] Episodic Residual codes; unclassified (1 source) Acquired absence of both cervix and uterus; Translations: [Acquired absence of both cervix and uterus] 05-24-2022 Episodic Residual codes; unclassified (2 sources) Other specified postprocedural states; Translations: [Other postprocedural status] Onset: 4 05-24-2022 Episodic Residual codes; unclassified (2 sources) Memory impairment; Translations: [Other amnesia] Episodic Residual codes; unclassified (2 sources) Family history of hemochromatosis; Translations: [Family history of other endocrine, nutritional and metabolic diseases] 10-23-2024 Episodic Screening and history of mental health and substance abuse codes (2 sources) Ex-tobacco user; Translations: [Personal history of nicotine dependence] Episodic Substance-related disorders (20 sources) Tobacco dependence in remission; Translations: [Nicotine dependence, unspecified, in remission] Onset: 0 Resolved: 5 12-25-2019 Chronic Superficial injury; contusion (1 source) Contusion of left knee; Translations: [Contusion of left knee, initial encounter] Episodic Systemic lupus erythematosus and connective tissue disorders (20 sources) Temporal arteritis; Translations: [Other giant cell arteritis] Onset: 1 Resolved: 5 Chronic Unclassified (1 source) Post Op Onset: 4 Unclassified (1 source) Patient encounter status 12-25-2024 Urinary tract infections (5 sources) Chronic cystitis; Translations: [Other chronic cystitis without hematuria] 06-29-2021 Chronic Urinary tract infections (1 source) Urinary tract infectious disease; Translations: [Urinary tract infection, site not specified] Episodic Past or Other Problems Problem Classification Problem Date Documented Da te Episodic/Chronic Abdominal pain (10 sources) Abdominal pain; Translations: [Unspecified abdominal pain] Onset: 5 06-29-2021 Episodic Calculus of urinary tract (20 sources) Kidney stone; Translations: [Calculus of kidney] Onset: 2 09-20-2021 Episodic Cardiac dysrhythmias (20 sources) Palpitations; Translations: [Palpitations] Onset: 8 08-06-2017 Episodic Complication of device; implant or graft (20 sources) Fibrosis due to internal orthopedic prosthetic devices, implants and grafts, subsequent encounter; Translations: [Other specified aftercare] Onset: 2 Resolved: 8 11-19-2017 Episodic Conditions associated with dizziness or vertigo (20 sources) Dizziness and giddiness; Translations: [Dizziness and giddiness] Onset: 1 02-07-2011 Episodic Deficiency and other anemia (20 sources) Anemia; Translations: [Anemia, unspecified] Resolved: 6 04-14-2016 Episodic E Codes: Adverse effects of medical drugs (2 sources) Adverse drug interaction with prescription medication; Translations: [Adverse effect of unspecified drugs, medicaments and biological substances, initial encounter] Onset: 5 09-02-2024 Episodic Esophageal disorders (20 sources) Esophagitis; Translations: [Esophagitis, unspecified] Onset: 0 Resolved: 8 08-06-2017 Episodic Malaise and fatigue (4 sources) Fatigue; Translations: [Other fatigue] Onset: 5 Episodic Menstrual disorders (20 sources) Menorrhagia; Translations: [Excessive and frequent menstruation with regular cycle] Onset: 0 Resolved: 2 08-18-2011 Chronic Other aftercare (20 sources) Long-term current use of antiplatelet drug; Translations: [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 antithrombotics/antipl atelets] Onset: 0 12-25-2019 Episodic Other and unspecified benign neoplasm (20 sources) Benign neoplasm of colon; Translations: [Benign neoplasm of colon, unspecified] Onset: 0 01-14-2010 Episodic Other and unspecified benign neoplasm (3 sources) Benign neoplasm of colon, unspecified; Translations: [Benign neoplasm of colon] Onset: 5 Episodic Other connective tissue disease (20 sources) Impingement syndrome of right shoulder region; Translations: [Impingement syndrome of right shoulder] Onset: 1 11-25-2020 Episodic Other connective tissue disease (20 sources) Impingement syndrome of left shoulder region; Translations: [Impingement syndrome of left shoulder] Onset: 1 11-25-2020 Episodic Other connective tissue disease (20 sources) Tendinosis of right biceps brachii; Translations: [Other specified disorders of tendon, right shoulder] Onset: 1 01-31-2021 Episodic Other connective tissue disease (20 sources) Bicipital tendinitis, left shoulder; Translations: [Bicipital tenosynovitis] Onset: 4 01-17-2024 Episodic Other connective tissue disease (1 source) Fibromyalgia; Translations: [Fibromyalgia] Onset: 8 Episodic Other female genital disorders (20 sources) Abnormal uterine bleeding; Translations: [Abnormal uterine and vaginal bleeding, unspecified] Onset: 2 Resolved: 4 09-11-2013 Chronic Other gastrointestinal disorders (1 source) Diarrhea, unspecified; Translations: [Diarrhea, unspecified] Onset: 5 Episodic Other gastrointestinal disorders (1 source) Abdominal distension (gaseous); Translations: [Abdominal bloating] Onset: 5 Episodic Other non-traumatic joint disorders (20 sources) Hand joint pain; Translations: [Pain in joints of unspecified hand] Onset: 3 11-14-2012 Episodic Other non-traumatic joint disorders (2 sources) Pain in left shoulder; Translations: [Pain in joint, shoulder region] Onset: 4 10-30-2022 Episodic Other non-traumatic joint disorders (20 sources) Pain in lower limb; Translations: [Pain in unspecified knee] Onset: 2 Resolved: 8 08-06-2017 Episodic Other screening for suspected conditions (not mental disorders or infectious disease) (20 sources) Endometrium thickened; Translations: [Abnormal findings on diagnostic imaging of other specified body structures] Onset: 2 Resolved: 4 09-11-2013 Chronic Other screening for suspected conditions (not mental disorders or infectious disease) (20 sources) Patient encounter status; Translations: [Encounter for screening mammogram for malignant neoplasm of breast] Onset: 8 Resolved: 8 Episodic Other skin disorders (20 sources) Ingrowing nail; Translations: [Ingrowing nail] Onset: 8 Resolved: 8 08-06-2017 Episodic Residual codes; unclassified (20 sources) Edema; Translations: [Edema, unspecified] Onset: 7 04-14-2008 Episodic Residual codes; unclassified (20 sources) Other specified health status; Translations: [Other drug allergy] Onset: 0 12-25-2019 Episodic Residual codes; unclassified (20 sources) Family history of aneurysm of artery; Translations: [Family history of ischemic heart disease and other diseases of the circulatory system] Onset: 0 12-25-2019 Episodic Residual codes; unclassified (1 source) Family history of other endocrine, nutritional and metabolic diseases; Translations: [Family history of hemochromatosis] Onset: 5 Episodic Sexually transmitted infections (not HIV or hepatitis) (20 sources) Human papillomavirus deoxyribonucleic acid test positive, high risk on cervical specimen; Translations: [Cervical high risk human papillomavirus (HPV) DNA test positive] Onset: 4 09-18-2013 Episodic Skin and subcutaneous tissue infections (20 sources) Disorder of nail; Translations: [Cellulitis of unspecified toe] Onset: 8 Resolved: 8 08-06-2017 Episodic Spondylosis; intervertebral disc disorders; other back problems (20 sources) Neck pain; Translations: [Cervicalgia] Onset: 1 02-07-2011 Episodic Unclassified (4 sources) uterine ablation 01-25-2022 Varicose veins of lower extremity (20 sources) Varicose veins of lower extremity; Translations: [Varicose veins of bilateral lower extremities with other complications] Onset: 7 Resolved: 8 08-06-2017 Episodic Results Test Name Value Interpretation Reference Range Facility [facility] 05[facility]06[facility]20[facility] CRYSTAL THAKUR ([id number]) 1960 F [facility] Date Time Provider Department 05/06/25 ERUM DUNCAN 4CQ During your visit today, we recorded the following information about you: Marah Mendez 05/06/2025 3:54 PM Signed Pt scheduled for CT lung screening 05/12. Pt will need New order due to current one that on 12/26/24. Please advise, Thank you Erum Duncan APRN.[facility] 05/12/2025 12:00 PM Signed Order updated. Erum Duncan APRN.[facility] Allergies As of Date: 05/06/2025 Noted Allergy Reaction CYMBALTA (DULOXETINE) 04/24/2007 14 - Other: See Comments Comments: Intolerance, elevated BP, pulse KEFLEX (CEPHALEXIN) 03/29/2021 8 - GI Upset Comments: Bloating and tears up stomach MONOSODIUM GLUTAMATE (MSG) 09/12/2006 14 - Other: See Comments Comments: Severe headache OXYCODONE 05/14/2020 14 - Other: See Comments Comments: Heart palpitations RABBIT DANDER 10/08/2018 12 - Shortness of Breath HUAN'S WORT 01/22/2007 14 - Other: See Comments Comments: Elevated BP ATORVASTATIN 11/09/2016 17 - Myalgia Comments: Muscle Aches CRESTOR (ROSUVASTATIN) 12/11/2019 17 - Myalgia GABAPENTIN 09/20/2017 14 - Other: See Comments Comments: Depression, suicidal thoughts NIACIN 01/22/2007 5 - Intolerance Comments: Facial numbness NIACINAMIDE 09/12/2006 14 - Other: See Comments Comments: Facial Numbness CATS 01/22/2007 12 - Shortness of Breath ASPARTAME 09/12/2006 14 - Other: See Comments Comments: Severe headache DOXYCYCLINE 01/22/2007 8 - GI Upset ERYTHROMYCIN 01/22/2007 8 - GI Upset GLUTAMIC ACID 08/20/2020 16 - Unknown Comments: Patient is not familiar with this product LATEX 09/12/2006 9 - Itching Comments: Redness SUCRALOSE 08/20/2020 16 - Unknown ZITHROMAX (AZITHROMYCIN) 01/14/2015 8 - GI Upset Comments: GI Date Reviewed: 04/09/2025 Reviewed by: Kinjal Mistry MA - Fully Assessed Reason for Visit: Orders [681] Prescriptions as of 05/12/2025 - ibuprofen (MOTRIN) 800 mg tablet Take 1 tablet by mouth every 6 hours as needed for pain. - nortriptyline (PAMELOR) 25 mg capsule Take 1 capsule by mouth daily at bedtime. - benzonatate (TESSALON PERLE) 100 mg capsule Take 1 capsule by mouth three times a day as needed for cough. - predniSONE (DELTASONE) 20 mg tablet Take 2 tablets by mouth once daily. - methocarbamol (ROBAXIN) 500 mg tablet Take 2 tablets by mouth three times a day. As needed for pain - blood sugar diagnostic (TRUE METRIX GLUCOSE TEST STRIP) test strip Use 4-6 times daily to check blood sugar. Dx:E11.9 insulin:No - lancets (ULTRA FINE LANCETS) 30 gauge Use with blood glucose test four times a day. Insulin Dep? No - omeprazole (PRILOSEC) 20 mg capsule Take 1 capsule by mouth two times a day. - coenzyme Q10 (CO Q-10) 100 mg cap capsule Take 2 capsules by mouth once daily. - lisinopril (ZESTRIL) 20 mg tablet Take 2 tablets by mouth once daily. - Blood-Glucose Sensor (FREESTYLE HUGH 3 SENSOR) cierra Use as directed to monitor glucose level - hydroCHLOROthiazide 25 mg tablet Take 1 tablet by mouth once daily. - cloNIDine HCl (CATAPRES) 0.1 mg tablet Take 1 tablet by mouth two times a day. - nadolol (CORGARD) 80 mg tablet Take 1 tablet by mouth two times a day. - metFORMIN ER (GLUCOPHAGE XR) 500 mg 24 hr tablet Take 3 tablets by mouth daily with breakfast. - Blood-Glucose Meter,Continuous (FREESTYLE HUGH 3 READER) [facility] [place] directed to monitor glucose level - amLODIPine (NORVASC) 10 mg tablet Take 1 tablet by mouth once daily. - albuterol HFA (PROVENTIL HFA, VENTOLIN HFA) 90 mcg/actuation inhaler Inhale 2 Puffs as instructed every 4 hours as needed. - nystatin (MYCOSTATIN) powder Apply 1 application to affected area as needed. - vitamin E mixed/tocotrienol (VITAMIN E COMPLEX ORAL) Take by mouth. - ondansetron (ZOFRAN) 4 mg tablet Take 1 tablet by mouth every 8 hours as needed. - VITAMIN B COMPLEX ORAL Take by mouth once daily. - VITAMIN K2 ORAL Take 100 mcg by mouth once daily. - calcium carbonate/vitamin D3 (CALCIUM WITH VITAMIN D ORAL) Take 1 tablet by mouth twice daily. 600 mg calcium with 1000mg vitamin D3 - aspirin, enteric coated (ASPIR-LOW) 81 mg EC tablet Take 1 tablet by mouth once daily. - ursodiol (ACTIGALL) 300 mg capsule Take 300 mg by mouth twice daily. - lancets (FREESTYLE LANCETS) 28 gauge [facility] [place] Test blood sugar(s) one times daily. Dx: Type 2 DM - Controlled E11.9 Insulin: No - loratadine (CLARITIN) 10 mg ORAL tablet Take 1 tablet by mouth once daily. Meds Comments as of 03/29/2021: Taking CBD oral gummies and patch. Gummies 10 mg, taking up to 100 mg daily. CBD patch 40 mg q 4 days. Takes Melatonin OTC Problem List As Of Date 05/06/2025 Noted Resolved HYPERTENSION [I10] Hyperlipidemia [E78.5] ESOPHAGEAL REFLUX [K21.9] Fibromyalgia [M79.7] OSTEOARTHROS NOS-L/LEG [QTO0195] Anemia, u (more content not included)... Normal [facility] CNOVon 04-09-2025 CNOV Office Visit (FAMPWS ) CRYSTAL THAKUR ([id number]) 1960 F [place] Date Time Provider Department 04/09/25 4:00 PM GABBIE GRADY During your visit today, we recorded the following information about you: Temperature Pulse Respiration Blood pressure 98.3 degrees 62/minute 16/minute 132/80 Weight 81.4 kg Gabbie Grady MD 04/09/2025 5:22 PM Signed Chief Complaint Patient presents with: Cough Head Congestion Chest Congestion HPI Crystal Thakur is a 65 year old female who presents here today for cough. Pt c/o head and chest congestion x 10 days with moist cough with clear/white sputum. No fevers. Decreased appetite since being ill. Getting Shortness of Breath with exertion or coughing a lot, some wheezing. Is using the albuterol inhalers but coughing so much it is hard to get the medication in her lungs. Has been taking cough and cold medication for hypertension, mucinex, tessalon perls, cough drops. Has had bronchitis in the past but it has been awhile and she feels this is different. Past medical history, appointments, medications, allergies reviewed. 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 Abnormal Pap smear of cervix 09/11/2013 [facility], Seeing HYDRAULIC TESTER Allergic rhinitis Anemia, unspecified Due to heavy menstrual cycles Benign neoplasm of colon 08/2009 POLYPS Cervical high risk human papillomavirus (HPV) DNA test positive 09/18/2013 Cystocele, midline Diabetes mellitus type II, controlled (HCC) metformin Diverticulosis Esophageal reflux 1999 RESOLVED due to diet change Esophagitis, unspecified Essential hypertension, benign 1998 Fatty liver Fibromuscular dysplasia renal and carotid arteries; follows with [facility] Fibromyalgia Giant cell arteritis (HCC) 2020 Heart palpitations nadalol helps Incomplete uterovaginal prolapse Left shoulder pain Obesity, unspecified Osteoarthrosis, unspecified whether generalized or localized, lower leg bilateral knees > hips Other and unspecified hyperlipidemia 1998 has been on meds in past, had tolerated Lipitor but afraid of statins Phlebitis and thrombophlebitis of superficial vessels of lower extremities 3rd child 1985, right leg Renal stones Varicose veins of other sites 2006 h/o varicose veins onset with first age of 20, had total of 4 pregnancies last was twins. First Vein stripping right leg surgery was 1992 at [facility], Second surgery 1993 to left leg (h/o hernia repair reason for one leg at a time). Here for possible laser surgery to remove lumpy and rope type veins. Previous Surgical History PAST SURGICAL HISTORY Procedure Laterality Date COLSC FLX W/RMVL OF TUMOR POLYP LESION SNARE TQ 01/14/2010 DILATION AND CURETTAGE DXAND/THER NONOBSTETRIC 2005 Dilation AND curettage-HYPERPLASIA, likely will have hysterectomy within next year EGD TRANSORAL BIOPSY SINGLE/MULTIPLE 01/14/2010 EXC CYST/ABERRANT BREAST TISSUE OPEN 1/> LESION 01/03/2010 Left breast, benign FASCIECTOMY PLANTAR FASCIA PARTIAL SPX 1992 FOOT Left 1989' plantar fasciitis release HYSTERECTOMY HX 05/03/2020 [facility], uterosacral vaginal vault suspension, A/P repair IUD INSERTION (HYDRAULIC TESTER DEPT)_*FL 05/14/2008 Mirena, removed JOINT REPLACEMENT HX total right knee LIG/TRNSXJ FLP TUBE ABDL/VAG APPR UNI/BI 1987 Tubal ligation NOVASURE 01/2010 PAST SURGICAL HISTORY OF 1983 EXPLORATORY LAP PAST SURGICAL HISTORY OF 1992 BILAT LEG-VEIN STRIPPING PAST SURGICAL HISTORY OF 10/2007, 12/2007 Bilat leg-vein stripping PAST SURGICAL HISTORY OF Right 01/24/2021 Right bicep repair PAST SURGICAL HISTORY OF Right 2018 TKA PAST SURGICAL HISTORY OF Left 01/21/2024 Left rotator cuff repair and bicep tendonesis REMOVE INTRAUTERINE DEVICE 2011 Expelled 3 weeks after insertion REPAIR INGUINAL HERNIA Bilateral 08/30/2022 laparoscopic repair with mesh ROTATOR CUFF REPAIR Right bicept reattachment RPR UMBILICAL HRNA 5 YRS/> REDUCIBLE 1993, 1989, 2007 Repaired 3 Times VAGINOSCOPY 09/25/2013 LSIL Family History FAMILY HISTORY Problem Relation Age of Onset Lipids Mother High Cholesterol Hypertension Mother Osteoporosis Mother Arthritis Mother RA Cataract Mother resolved with surgery other (Other) Mother Meniere's Skin Cancer Mother Psychiatry Father depression, committed suicide age 49 Osteoporosis Maternal Grandmother Thyroid Maternal Grandmother Cancer Maternal Grandfather leukemia Heart Maternal Grandfather Alzheimer's Disease Paternal Grandmother Thyroid Daughter Strabismus Daughter other (turners) Daughter other (aortic stenosis) Daughter Thyroid Daughter other (celiac disease) Daughter other (Fibromyalgia) Daughter other (MVP) Daughter Thyroid Daughter other (MVP) Daughter Hypertension Son other (hypog (more content not included)... Normal [facility] [id number] 01-15-2025 [id number] __ TESTING PERFORMED AT [facility]. ORIGINAL REPORT ON FILE IN LAB CONTAINS ADDITIONAL TEST SITE INFORMATION. Giardia Lamblia EIA NEGATIVE [facility] Comment on above: Performed By: #### M 100.0605, M600.5000, M100.6796, L7000.0700, M7400.3302, L7000.0750, M100.637 #### [facility] Laboratory [address] [place], [address] Ova and Parasites 8623on OP OVA AND PARASITES EXAM, ROUTINE These results were obtained using wet preparation(s) and trichrome stained smear. This test does not include testing for Crytosporidium parvum, Cyclospora, or Microsporidia. One negative specimen does not rule out the possibility of a parasitic infection. TESTING PERFORMED AT [facility]. ORIGINAL REPORT ON FILE IN LAB CONTAINS ADDITIONAL TEST SITE INFORMATION. Ova/Parasite Exam NO OVA, CYSTS, OR PARASITES FOUND. [facility] Comment on above: Performed By: #### M 100.0605, M600.5000, M100.6796, L7000.0700, M7400.3302, L7000.0750, M100.637 #### [facility] [address] [place], [address] Calprotectin, Stoolon [address] 127 ug/g Abnormal 0-120 [facility] Comment on above: Result Comment: Conc entration Interpretation Follow-Up < 5 - 50 ug/g Normal None >50 -120 ug/g Borderline Re-evaluate in 4-6 weeks >120 ug/g Abnormal Repeat as clinically indicated Performed at: [facility] [employer] [id number] Vet Tech: Ken Leblanc MD, Phone: [phone] Performed By: #### M 100.0605, M600.5000, M100.6796, L7000.0700, M7400.3302, L7000.0750, M100.637 #### [facility] [address] [place], [place], [id number] (002) L7000.0750on 01-08-2025 P ELASTASE,FECA 528 Normal >200 [facility] Comment on above: Result Comment: Resu lt Units: ug Elast./g Severe Pancreatic Insufficiency: <100 Moderate Pancreatic Insufficiency: 100 - 200 Normal: >200 Performed at: [facility] [id number] Vet Tech: Ken Leblanc MD, Phone: [phone] Performed By: #### M 100.0605, M600.5000, M100.6796, L7000.0700, M7400.3302, L7000.0750, M100.637 #### [facility] [address] [place], [place], [id number] ALBUMIN/CREATININE RATIO, UR INEon 01-07-2025 Albumin DL <= 20 mg/L (U) [Mass/Vol] mg/dL Normal [facility] Comment on above: Order Comment: Speci men Type: URINE SPECIMENOrdering Facility: [facility] Address: [address] [place] [address] Performed By: #### U ACR ####[facility] LABCLIA [id number] [place] [id number] [place] Albumin/Creatinine (U) [Mass ratio] Normal [facility] Comment on above: Order Comment: Speci men Type: URINE SPECIMENOrdering Facility: [facility] Address: [address] [place] [address] Result Comment: Not calculated Adult Male and Female Nephrotic Criteria: <30 mg/g is considered normal to mildly increased 30-300 mg/g is considered moderately increased >300 mg/g is considered severely increased KDIGO. (2013). KDIGO 2012 Clinical Practice Guideline for the Evaluation and Management of Chronic Kidney Disease. Official Journal of the International Society of Nephrology, 3(1), 1-150. Performed By: #### U ACR ####[facility] LABIA [id number] [place] [id number] [place] Creatinine (U) [Mass/Vol] 32.1 mg/dL Normal 20.0-300.0 [facility] Comment on above: Order Comment: Speci men Type: URINE SPECIMENOrdering Facility: [facility] Address: [address] [place] [address] Performed By: #### U ACR ####[facility] LABIA [id number] [place] [id number] [place] CDIFF (PCR)on 01-07-2025 CDIFF Pending 027 027 NAP1-B1 Presumptive Negative *for epidemiolologic???use C. Diff PCR Negative- No toxigenic C. Diff Detected Normal [facility] Comment on above: Performed By: #### M 100.0605, M600.5000, M100.6796, L7000.0700, M7400.3302, L7000.0750, M100.637 #### [facility] [address] [place], [place], [address] Calprotectin stoolOrdered By : Parul Edwards on 01-07-2025 Calprotectin stool 127 ug/g High 0-120 [facility] Comment on above: Concentration Interp retation Follow-Up< 5 - 50 ug/g Normal None>50 -120 ug/g Borderline Re-evaluate in 4-6 weeks >120 ug/g Abnormal Repeat as clinically indicatedPerformed at: [facility] [address] [id number] Director: Ken Leblanc MD, Phone: [phone] Clostridium difficile detect ion by polymerase chain reactionOrdered By: Parul Edwards on 01-07-2025 C. difficile DNA MASHA+probe Ql (Unsp spec) [facility] ENTERIC PATHOGEN PANEL STOOL on 01-07-2025 EP PANEL Normal Reference Ran ge = Not Detected Nucleic acid amplification test method Not detected for Campylobacter group, Salmonella species, Shigella species, Vibrio Group, Yersinia enterocolitica, EHEC (Shiga Toxin 1, Shiga Toxin 2), Norovirus Gl/Gll, and Rotavirus A. Other common stool pathogens are not detected on this panel include: Aeromonas/Plesiomonas or parasites. Order testing for these organisms separately if suspected. This is an amplified DNA test which makes it both specific and sensitive. CAMPYLOBACTER Not Detected Norovirus Not Detected Rotavirus Not Detected Salmonella Not Detected Shiga Toxin Not Detected Shigella sp. Not Detected VIBRIO Not Detected Yersinia Not Detected Normal [facility] Comment on above: Performed By: #### M 100.0605, M600.5000, M100.6796, L7000.0700, M7400.3302, L7000.0750, M100.637 #### [facility] [address] [place], [place], [id number] [facility] SCREENING W TOMChris 01-07 [facility] SCREENING W JOURDAN * * *Final Report* * * DATE OF EXAM: Jan 07 2025 10:58AM WR [id number] - [facility] SCREENING W JOURDAN / PROCEDURE REASON: Encounter for screening mammogram for malignant neoplasm of breast * * * * Physician Interpretation * * * * RESULT: [place] [address] #[id number] - [facility] SCREENING W JOURDAN HISTORY: 64 year-old patient presents for screening. Patient is asymptomatic in both breasts. Patient states no personal history of breast cancer. COMPARISON STUDIES: The present examination has been compared to prior imaging studies dated 05/24/2020 (mammogram), 08/26/2021 (mammogram), 10/17/2022 (mammogram), 11/26/2023 (mammogram) and 01/07/2024 (mammogram). MAMMOGRAM TECHNIQUE: The study was acquired using full field digital technology and interpreted from soft copy. Digital Breast Tomosynthesis (DBT) images were obtained and used to assist in the interpretation of this examination. MAMMOGRAM FINDINGS: There are scattered areas of fibroglandular density. No suspicious masses, calcifications or other abnormalities are seen in either breast. There are no significant interval changes. IMPRESSION: There is no mammographic evidence of malignancy in either breast. Routine screening mammogram is recommended. Annual mammogram will be due in 1 year. BI-RADS Category 1: Negative RISK: Based on the Tyrer-Cuzick (TC) risk assessment model, this patient has a 4.3% lifetime risk of developing breast cancer, meaning they are at average risk for developing breast cancer. However, this is only an estimate based on available history provided on the patient's questionnaire. We encourage all patients to talk with their providers about these results, further recommendations for managing breast health, and appropriate supplemental screening options if the patient has dense breast tissue. Interpreting Radiologist: Verito Schilling M.D. 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: LOBO Transcribe Date/Time: Jan 07 2025 10:47A Dictated by: VERITO SCHILLING MD This examination was interpreted and the report reviewed and electronically signed by: VERITO SCHILLING MD on Jan 08 2025 9:28AM EST [id number] Normal [facility] Stool Lactoferrin/WBCon 07-0 WBCST Normal Reference Ran ge = Negative Fecal WBC Lactoferrin Negative: No Fecal WBC Lactoferrin present Normal [facility] Comment on above: Performed By: #### M 100.0605, M600.5000, M100.6796, L7000.0700, M7400.3302, L7000.0750, M100.637 #### [facility] [address] [place], [address] Stool lactoferrin detection by immunoassayOrdered By: Parul Edwards on 01-07-2025 Lactoferrin IA Ql (Stl) [facility] Stool pancreatic elastase me asurement (mass/mass)Ordered By: Parul Edwards on 01-07-2025 Elastase.pancreatic (Stl) [Mass/Mass] 528 >200 [facility] Comment on above: Result Units: ug [address]sey st./g Severe Pancreatic Insufficiency: <100 Moderate Pancreatic Insufficiency: 100 - 200 Normal: >200Performed at: [facility] [address] [id number] Director: Ken Leblanc MD, Phone: [phone] Gastroenterology Visit Repor ton 01-01-2025 Gastroenterology Visit Report [facility] [address] [place] [address] OFFICE VISIT Date of Service: 01/01/25 MR#: [id number] Acct: [id number] Name: CRYSTAL THAKUR Rep #: [id number] : 1960 Provider: YARY Ramsay Age/Sex: 64/F Location: [facility] Status: Signed Intake Vital Signs 09/29/24 10:18 Height 5 ft 6 in Intake Visit Reasons: LOOSE STOOLS/DIARRHEA SINCE COLONOSCOPY Chief Complaint: loose stools Allergies gabapentin Allergy (Severe, Verified 09/29/24 10:14) Depression, suicidal thoughts cat dander Allergy (Mild, Verified 09/29/24 10:14) unknown latex Allergy (Mild, Verified 09/29/24 10:14) Redness, itching niacinamide Allergy (Mild, Verified 09/29/24 10:14) Facial Numbness rabbit dander Allergy (Mild, Verified 09/29/24 10:14) SOB aspartame Adverse Reaction (Mild, Verified 09/29/24 10:14) Severe Headache atorvastatin Adverse Reaction (Mild, Verified 09/29/24 10:14) Muscle Aches azithromycin (From Zithromax) Adverse Reaction (Mild, Verified 09/29/24 10:14) GI upset doxycycline Adverse Reaction (Mild, Verified 09/29/24 10:14) GI upset duloxetine (From Cymbalta) Adverse Reaction (Mild, Verified 09/29/24 10:14) Intolerance, elevated BP, elevated HR erythromycin base Adverse Reaction (Mild, Verified 09/29/24 10:14) GI upset monosodium glutamate Adverse Reaction (Mild, Verified 09/29/24 10:14) Severe Headache niacin Adverse Reaction (Mild, Verified 09/29/24 10:14) Intolerance rosuvastatin (From Crestor) Adverse Reaction (Mild, Verified 09/29/24 10:14) Myalgia [place]'s wort Adverse Reaction (Mild, Verified 09/29/24 10:14) NEEDS FOLLOW-UP sucralose (From Splenda (sucralose)) Adverse Reaction (Mild, Verified 09/29/24 10:14) Severe Headaches Medications ???Medication ???Instructions ???Recorded ???Confirmed ???Type albuterol sulfate 90 mcg/actuation 2 puff inhalation Q6H PRN SOB 01/01/25 History aerosol inhaler amlodipine 5 mg tablet 5 mg PO QHS 07/30/20 01/01/25 Hist ory aspirin 81 mg tablet,delayed 81 mg PO DAILY 07/30/20 01/01/25 H istory release (Adult Low Dose Aspirin) benzonatate 100 mg capsule 100 mg PO PRN PRN Cough 07/30/20 0 01/01/25 History coenzyme Q10 75 mg capsule (Ultra 200 mg PO DAILY 07/30/20 01/01/25 History CoQ10) hydrochlorothiazide 50 mg tablet 25 mg PO DAILY 07/30/20 01/01/25 H istory lisinopril 20 mg tablet 40 mg PO DAILY 07/30/20 01/01/25 H istory loratadine 10 mg capsule 10 mg PO DAILY PRN ALLERGIES 07/3001/01/25 History methocarbamol 500 mg tablet 1,000 mg PO PRN PRN MUSCLE SPASMS 07/30/20 01/01/25 History nadolol 80 mg tablet 40 tab PO BID 07/30/20 01/01/25 Hi story nystatin 100,000 unit/gram topical 1 applic topical DAILY PRN Skin 07/30/20 09/29/24 History powder Cleansing calcium carb-ergocalciferol (vit 1 tab PO DAILY 08/01/21 01/01/25 H istory D2) 600 mg calcium-200 unit tablet Bacillus coagulans-Bacillus 1 tab PO DAILY #90 tabs 08/22/21 0 01/01/25 Rx subtilis 1 billion cell chewable tablet (up4 Probiotics-Mind and Body) ibuprofen 600 mg tablet 800 mg PO PRN PRN Pain 09/15/21 History metformin 500 mg tablet,extended 500 mg PO DAILY 09/15/21 01/01/25 History release 24hr (osmotic) vitamin B complex (B 1 tab PO DAILY 09/15/21 01/01/25 H istory Complex-Vitamin B12 tablet) phytonadione (vitamin K1) 100 mcg 100 mcg PO DAILY 03/04/24 5 History tablet Held on 09/29/24. Instructions: pt out of maria esther clonidine HCl 0.1 mg tablet 0.1 mg PO BID 01/01/25 01/01/25 Hi story colestipol 1 gram tablet 2 g (2 x 1 gram) PO QDAY #60 tabs 01/01/25 01/01/25 Rx nortriptyline 25 mg capsule 25 mg PO QHS 01/01/25 01/01/25 His tory omeprazole 20 mg tablet,delayed 20 mg PO DAILY 01/01/25 01/01/25 H istory release ursodiol 300 mg capsule 300 mg PO BID #90 caps 01/01/25 Rx Nurse's Note: OV 01/01/25 Pt here for a f/u and reports difficultly swallowing, nausea, diarrhea, abdominal pain, gas and bloating. Pt reports she has to take 1-4 Imodium daily. She says she has diarrhea since the colonoscopy. Continues Ursodiol and omeprazole daily. [facility] Medical History Fibromuscular dysplasia GCA (giant cell arteritis) Type 2 diabetes mellitus Wears glasses Wears dentures Depression Anxiety Alcohol use Abrasion History of steroid therapy Diabetes Arthritis History of renal disease Hx of temporal arteritis Anemia Fatty liver Easy bruising Restless legs Back pain Migraine headache History of fibromuscular dysplasia Syncope Dietary restriction History of diverticulosis Former smoker Shortness of breath on exertion Leg cramps History of edema History of stress test Cardiology (more content not included)... Normal [facility] CNOVon 12-25-2024 [facility] Office Visit (FAMPWS ) CRYSTAL THAKUR ([id number]) 1960 F JEANNETTE Date Time Provider Department 12/25/24 4:20 PM GABBIE GRADY [facility] During your visit today, we recorded the following information about you: Pulse Respiration Blood pressure Weight 78/minute 16/minute 126/70 83.4 kg aGbbie Grady MD 12/25/2024 5:08 PM Signed Chief Complaint Patient presents with: 6 Month Exam HPI Crystal Lorenzo Thakur is a 64 year old female who presents here today for 6 month follow up. No bowel, Gi, or urinary issues. Has hx of gallstones and fatty liver disease. Following with Gastro Dr. Tamez who did pt colonoscopy 09/29/24. Recommended 5 year repeat. Taking Ursodiol 300 mg BID due to hx of kidney stones. Last visit pt was going to check the local Nephrologists for evaluation due to FMD for renal arteries and HTN. She has been dealing with chronic diarrhea since her colonoscopy in September, she has lost weight due to this. She has been trying to get in with Dr. Tamez but their office never seems to call them back. She has tried eliminating dairy, eating a BRAT diet, tried Metamucil. She has nagging feeling in the stomach. Having Nausea at times. Pt feels the sx she is experiencing are different than her gallstones or fatty liver. She has hx of diverticulitis. Is taking 4 imodium every other day. Stool has mucous at times and liquid. GERD: Sx stable with Prilosec 20 mg daily. HTN: Checks BP at home. No chest pains, dizziness, or SOB. Taking HCTZ 25 mg daily, Norvasc 10 mg daily, Clonidine 0.1 mg BID, Lisinopril 20 mg 2 pills once daily and Nadolol 40 mg 1 pill BID. DM: Checks BS up to 6 x a day with Hugh. FBS running 100 or lower. No hypoglycemic episodes. Has neuropathy sx in feet. Taking Metformin 500 mg 1-2 pills in the AM and 1 or 2 in the evening. Follows with Podiatry Dr. Burris every 3 months for foot exams. She also follows with Dr. Wright for dm eye exams. Lipid: Controlling with diet. Has not tolerated cholesterol medications. Does take ASA 81 mg daily. No regular exercise but is more active in the warmer months. Memory: no changes. Fibro/Hx GCA: Taking Nortriptyline 25 mg daily, Ibuprofen 800 mg every 6 hours prn, and Robaxin 500 mg 2 pill TID. Has Osteopenia. Past medical history, appointments, medications, allergies reviewed. 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 Abnormal Pap smear of cervix 09/11/2013 LSIL, Seeing HYDRAULIC TESTER Allergic rhinitis Anemia, unspecified Due to heavy menstrual cycles Benign neoplasm of colon 08/2009 POLYPS Cervical high risk human papillomavirus (HPV) DNA test positive 09/18/2013 Cystocele, midline Diabetes mellitus type II, controlled (HCC) metformin Diverticulosis Esophageal reflux 1999 RESOLVED due to diet change Esophagitis, unspecified Essential hypertension, benign 1998 Fatty liver Fibromuscular dysplasia renal and carotid arteries; follows with FMD clinic Fibromyalgia Giant cell arteritis (HCC) 2020 Heart palpitations nadalol helps Incomplete uterovaginal prolapse Left shoulder pain Obesity, unspecified Osteoarthrosis, unspecified whether generalized or localized, lower leg bilateral knees > hips Other and unspecified hyperlipidemia 1998 has been on meds in past, had tolerated Lipitor but afraid of statins Phlebitis and thrombophlebitis of superficial vessels of lower extremities 3rd child 1985, right leg Renal stones Varicose veins of other sites 2006 h/o varicose veins onset with first age of 20, had total of 4 pregnancies last was twins. First Vein stripping right leg surgery was 1992 at [facility], Second surgery 1993 to left leg (h/o hernia repair reason for one leg at a time). Here for possible laser surgery to remove lumpy and rope type veins. Previous Surgical History PAST SURGICAL HISTORY Procedure Laterality Date COLSC FLX W/RMVL OF TUMOR POLYP LESION SNARE TQ 01/14/2010 DILATION AND CURETTAGE DXAND/THER NONOBSTETRIC 2006 Dilation AND curettage-HYPERPLASIA, likely will have hysterectomy within next year EGD TRANSORAL BIOPSY SINGLE/MULTIPLE 01/14/2010 EXC CYST/ABERRANT BREAST TISSUE OPEN 1/> LESION 01/03/2010 Left breast, benign FASCIECTOMY PLANTAR FASCIA PARTIAL SPX 1992 FOOT Left plantar fasciitis release HYSTERECTOMY HX 05/03/2020 TVH, uterosacral vaginal vault suspension, A/P repair IUD INSERTION (HYDRAULIC TESTER DEPT)_*FL 05/14/2008 Mirena, removed JOINT REPLACEMENT HX total right knee LIG/TRNSXJ FLP TUBE ABDL/VAG APPR UNI/BI 1987 Tubal ligation NOVASURE 01/2010 PAST SURGICAL HISTORY OF 1983 EXPLORATORY LAP PAST SURGICAL HISTORY OF 1992 BILAT LEG-VEIN STRIPPING PAST SURGICAL HISTORY OF 10/2007, 12/2007 Bilat leg-vein stripping PAST SURGICAL HISTORY OF Right 01/24/2021 Right bicep repair PAST S (more content not included)... Normal [facility] CBC W Auto Differential pane l (Bld)on 12-22-2024 Basophils (Bld) [#/Vol] 0.04 10*3/uL Normal <0.11 [facility] Comment on above: Order Comment: Speci men Type: BLOOD SPECIMENOrdering Facility: [facility] Address: [address] [place] [address] Performed By: #### 5 7021-8, 4537-7 ####[facility] LABCLIA [id number] [place] [address] [place] Basophils/100 WBC (Bld) 0.6 % Normal [facility] Comment on above: Order Comment: Speci men Type: BLOOD SPECIMENOrdering Facility: [facility] Address: [address] [place] [address] Performed By: #### 5 7021-8, 4537-7 ####[facility] LABCLIA [id number] [place] [address] [place] Differential cell count method Nom (Bld) Auto Normal [facility] Comment on above: Order Comment: Speci men Type: BLOOD SPECIMENOrdering Facility: [facility] Address: [address] [place] [address] Performed By: #### 5 7021-8, 7-7 ####[facility] LABCLIA [id number] [place] [address] [place] Eosinophils (Bld) [#/Vol] 0.36 10*3/uL Normal <0.46 [facility] Comment on above: Order Comment: Speci men Type: BLOOD SPECIMENOrdering Facility: [facility] Address: [address] [place] [address] Performed By: #### 5 7021-8, 4536-7 ####[facility] LABCLIA [id number] [place] [address] [place] Eosinophils/100 WBC (Bld) 5.5 % Normal [facility] Comment on above: Order Comment: Speci men Type: BLOOD SPECIMENOrdering Facility: [facility] Address: [address] [place] [address] Performed By: #### 5 7021-8, 7 ####[facility] LABCLIA [id number] [place] [address] [place] Erythrocyte distribution width (RBC) [Ratio] 14.0 % Normal 11.5-15.0 [facility] Comment on above: Order Comment: Speci men Type: BLOOD SPECIMENOrdering Facility: [facility] Address: [address] [place] [address] Performed By: #### 5 7021-8, 4536-7 ####[facility] LABCLIA [id number] [place] [address] [place] Hematocrit (Bld) [Volume fraction] 38.1 % Normal 36.0-46.0 [facility] Comment on above: Order Comment: Speci men Type: BLOOD SPECIMENOrdering Facility: [facility] Address: [address] [place] [address] Performed By: #### 5 7021-8, 4536-7 ####[facility] LABCLIA [id number] [place] [address] [place] Hemoglobin (Bld) [Mass/Vol] 12.2 g/dL Normal 11.5-15.5 [facility] Comment on above: Order Comment: Speci men Type: BLOOD SPECIMENOrdering Facility: [facility] Address: [address] [place] [address] Performed By: #### 5 7021-8, 4536-7 ####[facility] LABCLIA [id number] [place] [address] [place] Immature granulocytes (Bld) [#/Vol] 10*3/uL Normal <0.10 [facility] Comment on above: Order Comment: Speci men Type: BLOOD SPECIMENOrdering Facility: [facility] Address: [address] [place] [address] Performed By: #### 5 7021-8, 4536-7 ####[facility] LABIA [id number] [place] [address] [place] Immature granulocytes/100 WBC (Bld) 0.3 % Normal [facility] Comment on above: Order Comment: Speci men Type: BLOOD SPECIMENOrdering Facility: [facility] Address: [address] [place] [address] Performed By: #### 5 7021-8, 4536-7 ####[facility] LABCLIA [id number] [place] [address] [place] Lymphocytes (Bld) [#/Vol] 2.14 10*3/uL Normal 1.00-4.00 [facility] Comment on above: Order Comment: Speci men Type: BLOOD SPECIMENOrdering Facility: [facility] Address: [address] [place] [address] Performed By: #### 5 7021-8, 7 ####[facility] LABIA [id number] [place] [address] [place] Lymphocytes/100 WBC (Bld) 32.9 % Normal [facility] Comment on above: Order Comment: Speci men Type: BLOOD SPECIMENOrdering Facility: [facility] Address: [address] [place] [address] Performed By: #### 5 7021-8, 7 ####[facility] LABIA [id number] [place] [address] [place] MCH (RBC) [Entitic mass] 27.2 pg Normal 26.0-34.0 [facility] Comment on above: Order Comment: Speci men Type: BLOOD SPECIMENOrdering Facility: [facility] Address: [address] [place] [address] Performed By: #### 5 7021-8, 7 ####[facility] [id number] [place] [address] [place] MCHC (RBC) [Mass/Vol] 32.0 g/dL Normal 30.5-36.0 [facility] Comment on above: Order Comment: Speci men Type: BLOOD SPECIMENOrdering Facility: [facility] Address: [address] [place] [address] Performed By: #### 5 7021-8, 7 ####[facility] LABIA [id number] [place] [address] [place] MCV (RBC) [Entitic vol] 85.0 fL Normal 80.0-100.0 [facility] Comment on above: Order Comment: Speci men Type: BLOOD SPECIMENOrdering Facility: [facility] Address: [address] [place] [address] Performed By: #### 5 7021-8, 4536-7 ####[facility] LABIA [id number] [place] [address] [place] Monocytes (Bld) [#/Vol] 0.68 10*3/uL Normal <0.87 [facility] Comment on above: Order Comment: Speci men Type: BLOOD SPECIMENOrdering Facility: [facility] Address: [address] [place] [address] Performed By: #### 5 7021-8, 4537-7 ####[facility] LABCLIA [id number] [place] [address] [place] Monocytes/100 WBC (Bld) 10.5 % Normal [facility] Comment on above: Order Comment: Speci men Type: BLOOD SPECIMENOrdering Facility: [facility] Address: [address] [place] [address] Performed By: #### 5 7021-8, 4536-7 ####[facility] LABCLIA [id number] [place] [address] [place] Neutrophils (Bld) [#/Vol] 3.26 10*3/uL Normal 1.45-7.50 [facility] Comment on above: Order Comment: Speci men Type: BLOOD SPECIMENOrdering Facility: [facility] Address: [address] [place] [address] Performed By: #### 5 7021-8, 4536-7 ####[facility] LABCLIA [id number] [place] [address] [place] Neutrophils/100 WBC (Bld) 50.2 % Normal [facility] Comment on above: Order Comment: Speci men Type: BLOOD SPECIMENOrdering Facility: [facility] Address: [address] [place] [address] Performed By: #### 5 7021-8, 4536-7 ####[facility] LABCLIA [id number] [place] [id number] [place] Nucleated RBC (Bld) [#/Vol] 10*3/uL Normal <0.01 [facility] Comment on above: Order Comment: Speci men Type: BLOOD SPECIMENOrdering Facility: [facility] Address: [address] [place] [address] Performed By: #### 5 7021-8, 4536-7 ####[facility] LABIA [id number] [place] [address] [place] Nucleated RBC/100 WBC (Bld) [Ratio] 0.0 /100 WBC Normal [facility] Comment on above: Order Comment: Speci men Type: BLOOD SPECIMENOrdering Facility: [facility] Address: [address] [place] [address] Performed By: #### 5 7021-8, 4536-7 ####[facility] LABIA [id number] [place] [address] [place] Platelet mean volume (Bld) [Entitic vol] 11.2 fL Normal 9.0-12.7 [facility] Comment on above: Order Comment: Speci men Type: BLOOD SPECIMENOrdering Facility: [facility] Address: [address] [place] [address] Performed By: #### 5 7021-8, 4537-7 ####[facility] LABIA [id number] [place] [address] [place] Platelets (Bld) [#/Vol] 218 10*3/uL Normal 150-400 [facility] Comment on above: Order Comment: Speci men Type: BLOOD SPECIMENOrdering Facility: [facility] Address: [address] [place] [address] Performed By: #### 5 7021-8, 7-7 ####[facility] LABIA [id number] [place] [address] [place] RBC (Bld) [#/Vol] 4.48 10*6/uL Normal 3.90-5.20 [facility] Comment on above: Order Comment: Speci men Type: BLOOD SPECIMENOrdering Facility: [facility] Address: [address] [place] [address] Performed By: #### 5 7021-8, 7-7 ####[facility] LABCLIA [id number] [address] [address] [place] WBC (Bld) [#/Vol] 6.50 10*3/uL Normal 3.70-11.00 [facility] Comment on above: Order Comment: Speci men Type: BLOOD SPECIMENOrdering Facility: [facility] Address: [address] [place] [address] Performed By: #### 5 7021-8, 7-7 ####[facility] LABCLIA [id number] [place] [address] [place] CRP [facility] 12-22-2024 CRP [Mass/Vol] 0.4 mg/dL Normal <0.9 [facility] Comment on above: Order Comment: Speci men Type: BLOOD SPECIMENOrdering Facility: [facility] Address: [address] [place] [address] Performed By: #### 2 4331-1, 68358-1, , 1987-11 ####[facility] LABIA [id number] [address] [address] [place] Comprehensive metabolic 2000 panelon 12-22-2024 Albumin [Mass/Vol] 4.2 g/dL Normal 3.9-4.9 [facility] Comment on above: Order Comment: Speci men Type: BLOOD SPECIMENOrdering Facility: [facility] Address: [address] [place] [address] Performed By: #### 2 4331-1, 60166-6, , 1987-11 ####[facility] LABCLIA [id number] [address] [place] [address] [place] ALP [Catalytic activity/Vol] 59 U/L Normal 34-123 [facility] Comment on above: Order Comment: Speci men Type: BLOOD SPECIMENOrdering Facility: [facility] Address: [address] [place], [place] [address] Performed By: #### 2 4331-1, 20828-8, , 1987-11 ####[facility] LABCLIA [id number] [address] [address] [place] ALT [Catalytic activity/Vol] 10 U/L Normal 7-38 [facility] Comment on above: Order Comment: Speci men Type: BLOOD SPECIMENOrdering Facility: [facility] Address: [address] [place] [address] Performed By: #### 2 4331-1, 50227-0, , 1987-11 ####[facility] LABCLIA [id number] [address] [address] [place] Anion gap [Moles/Vol] 10 mmol/L Normal 8-15 [facility] Comment on above: Order Comment: Speci men Type: BLOOD SPECIMENOrdering Facility: [facility] Address: [address] [place] [address] Performed By: #### 2 4331-1, 66158-6, , 1987-11 ####[facility] LABCLIA [id number] [address] [address] [place] AST [Catalytic activity/Vol] 16 U/L Normal 13-35 [facility] Comment on above: Order Comment: Speci men Type: BLOOD SPECIMENOrdering Facility: [facility] Address: [address] [place], [place] [address] Performed By: #### 2 4331-1, 17815-7, , 1987-11 ####[facility] LABCLIA [id number] [address] [address] [place] Bilirubin [Mass/Vol] 0.4 mg/dL Normal 0.2-1.3 [facility] Comment on above: Order Comment: Speci men Type: BLOOD SPECIMENOrdering Facility: [facility] Address: [address] [place] [address] Performed By: #### 2 4331-1, 58661-9, , 1987-11 ####[facility] LABCLIA [id number] [address] [address] [place] Calcium [Mass/Vol] 9.2 mg/dL Normal 8.5-10.2 [facility] Comment on above: Order Comment: Speci men Type: BLOOD SPECIMENOrdering Facility: [facility] Address: [address] [place], [place] [address] Performed By: #### 2 4331-1, 07970-5, , 1987-11 ####[facility] LABCLIA [id number] [address] [address] [place] Chloride [Moles/Vol] 100 mmol/L Normal 98-107 [facility] Comment on above: Order Comment: Speci men Type: BLOOD SPECIMENOrdering Facility: [facility] Address: [address] [place] [address] Performed By: #### 2 4331-1, , , 1987-11 ####[facility] LABIA [id number] [address] [address] [place] CO2 [Moles/Vol] 28 mmol/L Normal 22-30 [facility] Comment on above: Order Comment: Speci men Type: BLOOD SPECIMENOrdering Facility: [facility] Address: [address] [place] [address] Performed By: #### 2 4331-1, 67201-4, , 1987-11 ####[facility] LABCLIA [id number] [address] [address] [place] Creatinine [Mass/Vol] 0.73 mg/dL Normal 0.58-0.96 [facility] Comment on above: Order Comment: Speci men Type: BLOOD SPECIMENOrdering Facility: [facility] Address: [address] [place] [id number] Performed By: #### 2 4331-1, 90285-3, 00226-4, 1987-11 ####[facility] LABCLIA [id number] [address] [address] [place] Creatinine and Glomerular filtration rate.predicted panel (S/P/Bld) 93 mL/min/1.73m??? Normal >=60 [facility] Comment on above: Order Comment: Sade morris Type: BLOOD SPECIMENOrdering Facility: [facility] Address: [address] [place] [address] Result Comment: Tala mated Glomerular Filtration Rate (eGFR) is calculated using the 2020 CKD-EPI creatinine equation. This equation utilizes serum creatinine, sex, and age as parameters. The creatinine assay has traceable calibration to isotope dilution-mass spectrometry. Refer to KDIGO guidelines for clinical interpretation. In patients with unstable renal function, e.g. those with acute kidney injury, the eGFR may not accurately reflect actual GFR. Performed By: #### 2 4331-1, 13240-7, 78788-6, 1987-11 ####[facility] LABIA [id number] [place] [address] [place] Glucose [Mass/Vol] 101 mg/dL High 74-99 [facility] Comment on above: Order Comment: Sade morris Type: BLOOD SPECIMENOrdering Facility: [facility] Address: [address] [place] [phone] Result Comment: The [place] [employer] (ADA) provides guidance for cutoff values for fasting glucose and random glucose. The ADA defines fasting as no caloric intake for at least 8 hours. Fasting plasma glucose results between 100 to 125 mg/dL indicate increased risk for diabetes (prediabetes). Fasting plasma glucose results greater than or equal to 126 mg/dL meet the criteria for diagnosis of diabetes. In the absence of unequivocal hyperglycemia, results should be confirmed by repeat testing. In a patient with classic symptoms of hyperglycemia or hyperglycemic crisis, random plasma glucose results greater than or equal to 200 mg/dL meet the criteria for diagnosis of diabetes. Reference: Standards of Medical Care in Diabetes 2016, [place] [employer]. Diabetes Care. 2016.39(Suppl 1). Performed By: #### 2 4331-1, 43087-9, , 1987-11 ####[facility] LABCLIA [id number] [address] [place] [address] [place] Potassium [Moles/Vol] 3.7 mmol/L Normal 3.7-5.1 [facility] Comment on above: Order Comment: Speci men Type: BLOOD SPECIMENOrdering Facility: [facility] Address: [address] [place] [address] Performed By: #### 2 4331-1, 21785-2, , 1987-11 ####[facility] LABCLIA [id number] [address] [address] [place] Protein [Mass/Vol] 6.9 g/dL Normal 6.3-8.0 [facility] Comment on above: Order Comment: Speci men Type: BLOOD SPECIMENOrdering Facility: [facility] Address: [address] [place] [address] Performed By: #### 2 4331-1, , , 1987-11 ####[facility] LABIA [id number] [address] [place] [address] [place] Sodium [Moles/Vol] 138 mmol/L Normal 136-144 [facility] Comment on above: Order Comment: Speci men Type: BLOOD SPECIMENOrdering Facility: [facility] Address: [address] [place] [address] Performed By: #### 2 4331-1, 94514-3, , 1987-11 ####[facility] LABCLIA [id number] [address] [address] [place] Urea nitrogen [Mass/Vol] 13 mg/dL Normal 7-21 [facility] Comment on above: Order Comment: Speci men Type: BLOOD SPECIMENOrdering Facility: [facility] Address: [address] [place] [address] Performed By: #### 2 4331-1, 68223-1, 57322-6, 1987- ####[facility] LABIA [id number] [place] [address] [place] ESR Westergren method (Bld) [Velocity]on 12-22-2024 ESR (Bld) [Velocity] 10 mm/h Normal 0-20 [facility] Comment on above: Order Comment: Speci men Type: BLOOD SPECIMENOrdering Facility: [facility] Address: [address] [place] [address] Performed By: #### 5 7021-8, 4537-7 ####[facility] [id number] [address] [place] Ferritin SerPl-mCncon 2024 Ferritin [Mass/Vol] 38.0 ng/mL Normal 14.7-205.1 [facility] Comment on above: Order Comment: Speci men Type: BLOOD SPECIMENOrdering Facility: [facility] Address: [address] [place] [address] Performed By: #### 2 276-4 ####[facility] [id number] [address] [place] HbA1c (Bld)on 12-22-2024 Average glucose Estimated from glycated hemoglobin (Bld) [Mass/Vol] 134 mg/dL Normal [facility] Comment on above: Order Comment: Speci men Type: BLOOD SPECIMENOrdering Facility: [facility] Address: [address] [place] [address] Result Comment: eAG: (Estimated average glucose) is a calculated value from HgbA1c and is manufacturer's service representative of the average blood glucose level in the last 2-3 month period. Performed By: #### 5 5454-3 ####[facility] LABIA [id number] [id number] [address] [place] HbA1c (Bld) [Mass fraction] 6.3 % High 4.3-5.6 [facility] Comment on above: Order Comment: Speci men Type: BLOOD SPECIMENOrdering Facility: [facility] Address: [address] [place] [address] Result Comment: Rashida [place] Diabetes Association guidelines indicate that patients with HgbA1c in the range 5.7-6.4% are at increased risk for development of diabetes, and intervention by lifestyle modification may be beneficial. HgbA1c greater or equal to 6.5% is considered diagnostic of diabetes. Performed By: #### 5 5454-3 ####[facility] LABIA [id number] [place] [address] [place] Iron and Iron binding capaci ty panelon 12-22-2024 Iron [Mass/Vol] 50 ug/dL Normal 41-186 [facility] Comment on above: Order Comment: Marshai men Type: BLOOD SPECIMENOrdering Facility: [facility] Address: [address] [place] [address] Performed By: #### 2 4331-1, 44135-3, , 1987-11 ####[facility] LABIA [id number] [place] [address] [place] Iron binding capacity [Mass/Vol] 341 ug/dL Normal 232-386 [facility] Comment on above: Order Comment: Speci men Type: BLOOD SPECIMENOrdering Facility: [facility] Address: [address] [place] [address] Performed By: #### 2 4331-1, 50694-1, 66921-6, 1987-11 ####[facility] LABIA [id number] [place] [address] [place] Iron/TIBC [Molar ratio] 14.7 % Low 15.0-57.0 [facility] Comment on above: Order Comment: Speci men Type: BLOOD SPECIMENOrdering Facility: [facility] Address: [address] [place] [address] Performed By: #### 2 4331-1, 19701-2, , 1987-11 ####[facility] LABCLIA [id number] [address] [address] [place] Lipid 1996 panelon 5 Cholesterol [Mass/Vol] 301 mg/dL High <200 [facility] Comment on above: Order Comment: Speci men Type: BLOOD SPECIMENOrdering Facility: [facility] Address: [address] [place] [address] Result Comment: <200 mg/dL, Desirable 200-239 mg/dL, Borderline high >239 mg/dL, High Performed By: #### 2 4331-1, , , 1987-11 ####[facility] LABCLIA [id number] [address] [place] Cholesterol in HDL [Mass/Vol] 36 mg/dL Low >39 [facility] Comment on above: Order Comment: Marshai men Type: BLOOD SPECIMENOrdering Facility: [facility] Address: [address] [place] [address] Result Comment: 40-5 9 mg/dL, Acceptable >59 mg/dL, High: Negative risk factor for coronary heart disease <40 mg/dL, Low: Positive risk factor for coronary heart disease Performed By: #### 2 4331-1, , , 1987-11 ####[facility] LABCLIA [id number] [address] [place] Cholesterol in LDL [Mass/Vol] 205 mg/dL High <100 [facility] Comment on above: Order Comment: Speci men Type: BLOOD SPECIMENOrdering Facility: [facility] Address: [address] [place] [address] Result Comment: <100 mg/dL, Optimal 100-129 mg/dL, Near optimal/above optimal 130-159 mg/dL, Borderline high 160-189 mg/dL, High >189 mg/dL, Very high Secondary prevention optimal LDL Cholesterol levels are recommended to be <70 mg/dL LDL cholesterol is calculated using the [place]-NIH equation. Performed By: #### 2 4331-1, 54127-5, , 1987-11 ####[facility] LABIA [id number] [address] [address] [place] Cholesterol in LDL/Cholesterol in HDL [Mass ratio] 5.69 {ratio} High <2.54 [facility] Comment on above: Order Comment: Speci men Type: BLOOD SPECIMENOrdering Facility: [facility] Address: [address] [place] [address] Result Comment: Refe rence: 1. National Cholesterol Education Program ATP III Guideline At-A-Glance Quick Desk Reference: National Heart, Lung, and Blood [place]. National Institutes of Health. 2001: NIH Publication No. 01-3305. 2. An International Atherosclerosis Society position paper: global recommendations for the management of dyslipidemia: executive summary, Atherosclerosis. 2014: 232(2):410-413. Performed By: #### 2 4331-1, , , 1987-11 ####[facility] [id number] [address] [address] [place] Cholesterol in VLDL [Mass/Vol] 64 mg/dL High <30 [facility] Comment on above: Order Comment: Speci men Type: BLOOD SPECIMENOrdering Facility: [facility] Address: [address] [place] [address] Performed By: #### 2 4331-1, 15648-1, , 1987-11 ####[facility] LABIA [id number] [address] [address] [place] Cholesterol non HDL [Mass/Vol] 265 mg/dL High <130 [facility] Comment on above: Order Comment: Speci men Type: BLOOD SPECIMENOrdering Facility: [facility] Address: [address] [place] [address] Result Comment: <130 mg/dL, Optimal 130-159 mg/dL, Near optimal/above optimal 160-189 mg/dL, Borderline high 190-219 mg/dL, High >219 mg/dL, Very high Secondary prevention optimal non HDL Cholesterol levels are recommended to be <100 mg/dL Performed By: #### 2 433-1, , , 1987-11 ####[facility] LABCLIA [id number] [id number] [address] [place] Cholesterol.total/Cho lesterol in HDL [Mass ratio] 8.36 {ratio} High <5.10 [facility] Comment on above: Order Comment: Speci men Type: BLOOD SPECIMENOrdering Facility: [facility] Address: [address] [place] [address] Performed By: #### 2 433-1, , , 1987-11 ####[facility] LABCLIA [id number] [facility] [address] [place] [address] [place] FASTING TIME 11 hrs Normal [facility] Comment on above: Order Comment: Speci men Type: BLOOD SPECIMENOrdering Facility: [facility] Address: [address] [place] [address] Performed By: #### 2 4331-1, , , 1987-11 ####[facility] LABCLIA [id number] [facility] [place] [id number] [address] [place] Triglyceride [Mass/Vol] 297 mg/dL High <150 [facility] Comment on above: Order Comment: Speci men Type: BLOOD SPECIMENOrdering Facility: [facility] Address: [address] [place] [address] Result Comment: <150 mg/dL, Normal 150-199 mg/dL, Borderline high 200-499 mg/dL, High >499 mg/dL, Very high Performed By: #### 2 4331-1, , , 1987-11 ####[facility] LABCLIA [id number] [facility] [id number] [address] [place] Bedside Glucoseon 03-24-2025 FINGERSTICK GLU 137 mg/dL High 74-106 [facility] Comment on above: Result Comment: NILA HAMEED OF PATIENT CARE PER NURSING PROTOCOL Performed By: #### L 501.080 ####[facility] [id number] [place], [address] Colonoscopy Reporton 025 Colonoscopy Report [facility] Medical Records Department [address] [place] [address] Colonoscopy Report MR#: [id number] Acct: [id number] Name: CRYSTAL THAKUR Rep #: [id number] : 1960 64 From: Doug Tamez DO PCP: Dr. Gabbie Grady MD Status:[facility] Patient Name: Crystal Thakur Procedure Date: 09/29/2024 11:16 AM Date of : 1960 Age: 64 Procedure: Colonoscopy Indications: Screening for colorectal malignant neoplasm Providers: Doug Tamez DO Medicines: Monitored Anesthesia Care Patient Profile: This is a 64 year old female. Refer to note in patient chart for documentation of history and physical. Last Colonoscopy: 5 years ago. Complications: No immediate complications. Procedure: Pre-Anesthesia Assessment: - Prior to the procedure, a History and Physical was performed, and patient medications and allergies were reviewed. The patient is competent. The risks and benefits of the procedure and the sedation options and risks were discussed with the patient. All questions were answered and informed consent was obtained. Patient identification and proposed procedure were verified by the physician in the pre-procedure area. Mental Status Examination: alert and oriented. Airway Examination: normal oropharyngeal airway and neck mobility. Respiratory Examination: clear to auscultation. CV Examination: normal. Prophylactic Antibiotics: The patient does not require prophylactic antibiotics. Prior Anticoagulants: The patient has taken no anticoagulant or antiplatelet agents except for NSAID medication. ASA Grade Assessment: II - A patient with mild systemic disease. After reviewing the risks and benefits, the patient was deemed in satisfactory condition to undergo the procedure. The anesthesia plan was to use monitored anesthesia care (MAC). Immediately prior to administration of medications, the patient was re-assessed for adequacy to receive sedatives. The heart rate, respiratory rate, oxygen saturations, blood pressure, adequacy of pulmonary ventilation, and response to care were monitored throughout the procedure. The physical status of the patient was re-assessed after the procedure. After I obtained informed consent, the scope was passed under direct vision. Throughout the procedure, the patient's blood pressure, pulse, and oxygen saturations were monitored continuously. The colonoscope was introduced through the anus and advanced to the cecum, identified by the appendiceal orifice, ileocecal valve and palpation. The colonoscopy was performed without difficulty. The patient tolerated the procedure well. Scope In: 11:26:03 AM Scope Withdrawal Time 0 hours 11 minutes 37 seconds Scope Out: 11:41:57 AM Total Procedure Duration Time 0 hours 15 minutes 54 seconds Findings: The perianal and digital rectal examinations were normal. Multiple small and large-mouthed diverticula were found in the recto-sigmoid colon and sigmoid colon. A 5 mm polyp was found in the sigmoid colon. The polyp was sessile. The polyp was removed with a cold biopsy forceps. Resection and retrieval were complete. Verification of patient identification for the specimen was done. Estimated blood loss was minimal. The exam was otherwise without abnormality on direct and retroflexion views. Impression: - Diverticulosis in the recto-sigmoid colon and in the sigmoid colon. - One 5 mm polyp in the sigmoid colon, removed with a cold biopsy forceps. Resected and retrieved. - The examination was otherwise normal on direct and retroflexion views. Recommendation: - Discharge patient to home. - Resume previous diet. - Continue present medications. - Await pathology results. - Repeat colonoscopy in 5 years for surveillance. Procedure Code(s): --- Professional --- 81530, Colonoscopy, flexible; with biopsy, single or multiple CPT copyright 2021 [place] [employer]. All rights reserved. The codes documented in this report are preliminary and upon chief data officer review may be revised to meet current compliance requirements. Doug Tamez DO 09/29/2024 11:48:33 AM This report has been signed electronically. Number of Addenda: 0 Note Initiated On: 09/29/2024 11:16 AM 09/29/24 1148 Date Doug Friend DO Cosigner Signature: Date (if indicated) CC: Dr. 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 Comment on above: MANAGEMENT OF PATIEN T CARE PER NURSING PROTOCOL MR/POSTOP.ANEon 09-29-2024 MR/POSTOP.[facility] Medical Records Department [address] [place] [address] Anesthesia Postop Eval I 09/29/24 1149 MR#: [id number] Acct: [id number] Name: CRYSTAL THAKUR Rep #: [id number] : 1960 64 From: Ketan Pitts PCP: Dr. Gabbie Grady MD Status:REG [facility] Y Race: C Location: [place] [address] Anesthesia: Postop Eval I Current Vital Signs Temperature: 98.5 F Pulse Rate: 68 Blood Pressure: 127/72 Respiratory Rate: 16 Pulse Ox: 98 Oxygen Delivery Method: Room Air Assessment Airway patent: Yes Spontaneous unlabored respirations: Yes Mental status: Awake and Calm nausea: No Vomiting: No Anesthesia Complication: No Fluid Hydration Crystalloid volume administer (ml): 45 Total IV fluid infused: 45 Progress Note Anesthesia document: Postop Eval 1 completed: Yes 09/29/24 1149 Date Ketan Gary Signature: Date CC: Signed Normal [facility] Surgery Specimen Level Grace 09-29-2024 Surgery Specimen Level IV ---- Patient Age/Sex Location Account Attending Physician ---- CRYSTAL THAKUR 64/F EN [id number] Doug Tamez DO ---- Specimen: [id number] Received: 09/30/24 Status: SUSI Ceja Num: [id number] Spec Type: COLON BX Subm Dr: Doug Tamez DO [place] OPERATION: Colonoscopy with biopsy PRE-OP DIAGNOSIS: Tubular adenoma of colon TISSUE SUBMITTED: A- Sigmoid biopsy ---- MICROSCOPIC DIAGNOSIS A. SIGMOID COLON, BIOPSY: * POLYPOID COLONIC MUCOSA WITH MUCOSAL LYMPHOID AGGREGATE. * NEGATIVE FOR DYSPLASIA (DEEPER SECTIONS EXAMINED). MICROSCOPIC DESCRIPTION Slides are reviewed. GROSS DESCRIPTION A. Received in fixative is one container labeled with the patient's name and designated "Sigmoid biopsy." The specimen consists of two irregular fragments of light brannon soft tissue that in aggregate measure 0.4 x 0.3 x 0.2 cm. The specimen is totally submitted in one cassette. Deepti 09/30/2024 [facility]:[id number] ---- Patient Age/Sex Location Account Attending Physician ---- CRYSTAL THAKUR 64/F EN [id number] Doug Tamez DO ---- Signed (signature on file) Dr. Jeimy Burnette MD 10/06/24 1742 ---- Normal [facility] Comment on above: Performed By: #### P SUIV ####[facility] [address] [place], [place], [id number] POTASSIUMon 09-05-2024 Potassium [Moles/Vol] 4.4 mmol/L Normal 3.7-5.1 [facility] Comment on above: Order Comment: Speci men Type: BLOOD SPECIMEN [facility]ing Facility[facility] Address: [address] [place] [address] Performed By: #### K 1 #### [facility] CLIA [id number] [address] [place] [address] [place] Bacteria Wnd Culton 09-02-19 Bacteria identified Cx Nom (Wound) ORGANISM ID: 1 Rare Escherichia coli ORGANISM ID: 2 Few Actinomyces (Gleimia) europaea No further workup GRAM STAIN: Many Gram positive cocci Many Gram negative bacilli Moderate Gram positive bacilli Moderate Polymorphonuclear leukocytes ORGANISM ID: 1 (ESCHERICHIA COLI) -- ANTIBIOTIC INTERPRETATION [place] STATUS REFERENCE RANGE -- Ampicillin S 4 F Susceptible <=8 , Intermediate >8 , Resistant >16 Ceftriaxone S <=1 F Susceptible <=1 , Intermediate >1 , Resistant >=4 Cefepime S <=1 F Susceptible <=2 , Susceptible-Dose Dependent >2 , Resistant >=16 Ertapenem S <=0.5 F Susceptible <=0.5 , Intermediate >.5 , Resistant >1 Meropenem S <=0.25 F Susceptible <=1 , Intermediate >1 , Resistant >2 Ampicillin/Sulbact S <=2 F Susceptible <=8 , Intermediate >8 , Resistant >16 Piperacillin/Tazobac S <=4 F Susceptible <16 , Susceptible-Dose Dependent >=16 , Resistant >=32 Gentamicin S <=1 F Susceptible <=2 , Intermediate >2 , Resistant >=8 Tobramycin S <=1 F Susceptible <4 , Intermediate >=4 , Resistant >=8 Trimeth sulfameth S <=20 F Susceptible <=40 , Resistant >40 Ciprofloxacin S <=0.25 F Susceptible <0.5 , Intermediate >=.5 , Resistant >=1 Abnormal [facility] Comment on above: Performed By: #### 6 462-6 ####[facility] LABIA [id number] [address] OF [facility] CNOVon 09-02-2024 CNOV Office Visit (JORDANGYWJuan ) CRYSTAL THAKUR ([id number]) 1960 F [place]TE Date Time Provider Department 09/02/24 9:20 AM LANCE MOCTEZUMA During your visit today, we recorded the following information about you: Blood pressure Weight 122/74 83.5 kg Lance Moctezuma MD 09/02/2024 4:25 PM Signed Crystal Ventura Blaze is a 64 year old female who presents today for incision and drainage of a perineal abscess. UNIVERSAL PROTOCOL / SAFETY CHECKLIST Procedure to be Performed: incision and drainage of a perineal abscess Sign In: A Moment of CARE was completed. Appropriate PPE (Personal Protective Equipment) worn by all providers involved with the procedure. Special equipment not required. Patient/Surrogate Stated/Verified: Patient name, Date of , Relevant allergies, and The intended procedure Time Out: Relevant labs, photos, and/or imaging studies are not applicable. Intended patient and procedure match the source document(s) (e.g. consent, HANDP, associated studies [imaging, pathology]) match the intended patient and procedure. Consent obtained and matches the intended procedure. Yes. Correct side/site is not applicable. Medications required for this procedure are verified. Fire risk assessed and is not applicable. Implants: are not applicable. Sign Out: Specimens are all correctly labeled and sent. All instruments, equipment, possible retained foreign bodies are accounted for. Yes. The post-procedure plan of care has been communicated to the patient or surrogate. PROCEDURE NOTE: GROSS LESIONS: Yes, fluctuant perineal abscess/boil Procedure : Area was cleansed with betadine and anesthetized with 2mL 1% lidocaine with 1:100,000 epi. Stab incision made with scalpel. Wound culture collected of purulent drainage Incision packed with packing tape. HEMOSTASIS: Obtained with pressure Procedure Summary: Patient tolerated procedure well. ASSESSMENT: IANDD of perineal abscess PLAN: Specimens labeled and sent to Pathology. Will notify patient of results in 1-2 weeks. Post-procedure instructions reviewed and written material given to the patient. Patient to removed packing tape in 48 hours. Bactrim sent to pharmacy. Patient contacted after visit that recommend potassium level assessment due to possible medication interaction. Lance Moctezuma MD Allergies As of Date: 09/02/2024 Noted Allergy Reaction CYMBALTA (DULOXETINE) 04/24/2007 14 - Other: See Comments Comments: Intolerance, elevated BP, pulse KEFLEX (CEPHALEXIN) 03/29/2021 8 - GI Upset Comments: Bloating and tears up stomach MONOSODIUM GLUTAMATE (MSG) 09/12/2006 14 - Other: See Comments Comments: Severe headache OXYCODONE 05/14/2020 14 - Other: See Comments Comments: Heart palpitations RABBIT DANDER 10/08/2018 12 - Shortness of Breath HUAN'S WORT 01/22/2007 14 - Other: See Comments Comments: Elevated BP ATORVASTATIN 11/09/2016 17 - Myalgia Comments: Muscle Aches CRESTOR (ROSUVASTATIN) 12/11/2019 17 - Myalgia GABAPENTIN 09/20/2017 14 - Other: See Comments Comments: Depression, suicidal thoughts NIACIN 01/22/2007 5 - Intolerance Comments: Facial numbness NIACINAMIDE 09/12/2006 14 - Other: See Comments Comments: Facial Numbness CATS 01/22/2007 12 - Shortness of Breath ASPARTAME 09/12/2006 14 - Other: See Comments Comments: Severe headache DOXYCYCLINE 01/22/2007 8 - GI Upset ERYTHROMYCIN 01/22/2007 8 - GI Upset GLUTAMIC ACID 08/20/2020 16 - Unknown Comments: Patient is not familiar with this product LATEX 09/12/2006 9 - Itching Comments: Redness SUCRALOSE 08/20/2020 16 - Unknown ZITHROMAX (AZITHROMYCIN) 01/14/2015 8 - GI Upset Comments: GI Date Reviewed: 09/02/2024 Reviewed by: Keri Miller MA - Fully Assessed Reason for Visit: Vaginal Problem [117] Cmt: Painful lump first noticed 3 days ago Primary Visit Diagnosis:Perineal abscess [L02.215] Other Visit Diagnosis:Adverse drug interaction with prescription medication [T50.905A] Order(s):sulfamethoxaz ole-trimethoprim (BACTRIM DS) 800-160 mg per tabletTake 1 tablet by mouth two times a day for 7 days.Disp: 14 tabletRfl: 0 BACTERIAL CULTURE AND GRAM STAIN, ABSCESS AND WOUND (AEROBIC CULTURE) [SQWCUL] Order #: [id number]. #:[id number] POTASSIUM [SQK1] Order #: [id number] FUTURE Prescriptions as of 09/02/2024 - sulfamethoxazole-trime thoprim (BACTRIM DS) 800-160 mg per tablet Take 1 tablet by mouth two times a day for 7 days. - metFORMIN ER (GLUCOPHAGE XR) 500 mg 24 hr tablet Take 3 tablets by mouth daily with breakfast. - methocarbamol (ROBAXIN) 500 mg tablet Take 2 tablets by mouth three times a day. As needed for pain - Blood-Glucose Sensor (FREESTYLE HUGH 3 SENSOR) cierra Use as directed to monitor glucose level - Blood-Glucose Meter,Continuous (FREESTYLE HUGH 3 READER) misc Use as directed to monitor glucose level - benzonatate ( (more content not included)... Normal [facility] CNPNon 09-02-2024 CNPN Telephone (OBGYWM) CRYSTAL THAKUR ([id number]) 1960 F [facility] Date Time Provider Department 09/02/24 LANCE MOCTEZUMA OBCASSIEWJuan During your visit today, we recorded the following information about you: Emma Perdomo RN 09/02/2024 4:37 PM Signed Lance Moctezuma MD [place], [place]isha, DELLA Please notify patient to get her potassium level drawn at the [facility] K[place] morning. The bactrim could interact with her lisinopril and I want to make sure her levels stay normal. Thanks! Emma Bay, DELLA 09/02/2024 4:37 PM Signed Patient notified. She will go to [facility] this Sunday morning. Emma Perdomo RN Allergies As of Date: 09/02/2024 Noted Allergy Reaction CYMBALTA (DULOXETINE) 04/24/2007 14 - Other: See Comments Comments: Intolerance, elevated BP, pulse KEFLEX (CEPHALEXIN) 03/29/2021 8 - GI Upset Comments: Bloating and tears up stomach MONOSODIUM GLUTAMATE (MSG) 09/12/2006 14 - Other: See Comments Comments: Severe headache OXYCODONE 05/14/2020 14 - Other: See Comments Comments: Heart palpitations RABBIT DANDER 10/08/2018 12 - Shortness of Breath HUAN'S WORT 01/22/2007 14 - Other: See Comments Comments: Elevated BP ATORVASTATIN 11/09/2016 17 - Myalgia Comments: Muscle Aches CRESTOR (ROSUVASTATIN) 12/11/2019 17 - Myalgia GABAPENTIN 09/20/2017 14 - Other: See Comments Comments: Depression, suicidal thoughts NIACIN 01/22/2007 5 - Intolerance Comments: Facial numbness NIACINAMIDE 09/12/2006 14 - Other: See Comments Comments: Facial Numbness CATS 01/22/2007 12 - Shortness of Breath ASPARTAME 09/12/2006 14 - Other: See Comments Comments: Severe headache DOXYCYCLINE 01/22/2007 8 - GI Upset ERYTHROMYCIN 01/22/2007 8 - GI Upset GLUTAMIC ACID 08/20/2020 16 - Unknown Comments: Patient is not familiar with this product LATEX 09/12/2006 9 - Itching Comments: Redness SUCRALOSE 08/20/2020 16 - Unknown ZITHROMAX (AZITHROMYCIN) 01/14/2015 8 - GI Upset Comments: GI Date Reviewed: 09/02/2024 Reviewed by: Keri Miller MA - Fully Assessed Reason for Visit: Patient Update [1234] Prescriptions as of 09/02/2024 - sulfamethoxazole-trime thoprim (BACTRIM DS) 800-160 mg per tablet Take 1 tablet by mouth two times a day for 7 days. - metFORMIN ER (GLUCOPHAGE XR) 500 mg 24 hr tablet Take 3 tablets by mouth daily with breakfast. - methocarbamol (ROBAXIN) 500 mg tablet Take 2 tablets by mouth three times a day. As needed for pain - Blood-Glucose Sensor (FREESTYLE HUGH 3 SENSOR) cierra Use as directed to monitor glucose level - Blood-Glucose Meter,Continuous (FREESTYLE HUGH 3 READER) misc Use as directed to monitor glucose level - benzonatate (TESSALON PERLE) 100 mg capsule Take 1 capsule by mouth three times a day as needed for cough. - amLODIPine (NORVASC) 10 mg tablet Take 1 tablet by mouth once daily. - nortriptyline (PAMELOR) 25 mg capsule Take 1 capsule by mouth daily at bedtime. - albuterol HFA (PROVENTIL HFA, VENTOLIN HFA) 90 mcg/actuation inhaler Inhale 2 Puffs as instructed every 4 hours as needed. - nystatin (MYCOSTATIN) powder Apply 1 application to affected area as needed. - nadolol (CORGARD) 80 mg tablet Take 1 tablet by mouth two times a day. - cloNIDine HCl (CATAPRES) 0.1 mg tablet Take 1 tablet by mouth two times a day. - vitamin E mixed/tocotrienol (VITAMIN E COMPLEX ORAL) Take by mouth. - ibuprofen (MOTRIN) 800 mg tablet Take 1 tablet by mouth every 6 hours as needed for pain. - FREESTYLE HUGH 14 DAY SENSOR kit apply NEW SENSOR EVERY 14 DAYS TO UPPER ARM - blood sugar diagnostic (TRUE METRIX GLUCOSE TEST STRIP) test strip Use 4-6 times daily to check blood sugar. Dx:E11.9 insulin:No - ondansetron (ZOFRAN) 4 mg tablet Take 1 tablet by mouth every 8 hours as needed. - Lactobacillus acidoph-pectin 75 million cell -100 mg cap Take 1 capsule by mouth once daily. - VITAMIN B COMPLEX ORAL Take by mouth once daily. - omeprazole (PRILOSEC) 20 mg capsule Take 1 capsule by mouth daily before breakfast. 1/2 hr before meal. - hydroCHLOROthiazide 25 mg tablet Take 1 tablet by mouth once daily. - lisinopril (ZESTRIL) 20 mg tablet Take 2 tablets by mouth once daily. - coenzyme Q10 (CO Q-10) 100 mg cap capsule Take 2 capsules by mouth once daily. - VITAMIN K2 ORAL Take 100 mcg by mouth once daily. - Milk Thistle 150 mg cap Take 1 capsule by mouth once daily. - calcium carbonate/vitamin D3 (CALCIUM WITH VITAMIN D ORAL) Take 1 tablet by mouth twice daily. 600 mg calcium with 1000mg vitamin D3 - aspirin, enteric coated (ASPIR-LOW) 81 mg EC tablet Take 1 tablet by mouth once daily. - ursodiol (ACTIGALL) 300 mg capsule Take 300 mg by mouth twice daily. - lancets (FREESTYLE LANCETS) 28 gauge misc Test blood sugar(s) one times daily. Dx: Type 2 DM - Controlled E11.9 Insulin: No - loratadine (CLARITIN) 10 mg ORAL tablet Take (more content not included)... Normal [facility] CBC panel Auto (Bld)on 07-03 Erythrocyte distribution width (RBC) [Ratio] 13.7 % Normal 11.5-15.0 [facility] Comment on above: Order Comment: Speci men Type: BLOOD SPECIMENOrdering Facility: [facility] Address: [address] [place] [address] Performed By: #### 4 537-7, 49832-8 ####[facility] LABCLIA [id number] [facility] [id number] [address] [place] Hematocrit (Bld) [Volume fraction] 42.6 % Normal 36.0-46.0 [facility] Comment on above: Order Comment: Speci men Type: BLOOD SPECIMENOrdering Facility: [facility] Address: [address] [place] [address] Performed By: #### 4 537-7, 31441-8 ####[facility] LABCLIA [id number] [place] [address] [place] Hemoglobin (Bld) [Mass/Vol] 13.8 g/dL Normal 11.5-15.5 [facility] Comment on above: Order Comment: Speci men Type: BLOOD SPECIMENOrdering Facility: [facility] Address: [address] [place] [address] Performed By: #### 4 537-7, 67177-2 ####[facility] LABCLIA [id number] [place] [address] [place] MCH (RBC) [Entitic mass] 27.9 pg Normal 26.0-34.0 [facility] Comment on above: Order Comment: Speci men Type: BLOOD SPECIMENOrdering Facility: [facility] Address: [address] [place] [address] Performed By: #### 4 537-7, 78974-7 ####[facility] LABCLIA [id number] [place] [address] [place] MCHC (RBC) [Mass/Vol] 32.4 g/dL Normal 30.5-36.0 [facility] Comment on above: Order Comment: Speci men Type: BLOOD SPECIMENOrdering Facility: [facility] Address: [address] [place] [address] Performed By: #### 4 537-7, 58964-2 ####[facility] LABCLIA [id number] [place] [address] [place] MCV (RBC) [Entitic vol] 86.1 fL Normal 80.0-100.0 [facility] Comment on above: Order Comment: Speci men Type: BLOOD SPECIMENOrdering Facility: [facility] Address: [address] [place] [address] Performed By: #### 4 537-7, 87011-0 ####[facility] LABCLIA [id number] [place] [address] [place] Nucleated RBC (Bld) [#/Vol] 10*3/uL Normal <0.01 [facility] Comment on above: Order Comment: Speci men Type: BLOOD SPECIMENOrdering Facility: [facility] Address: [address] [place] [address] Performed By: #### 4 537-7, 45875-1 ####[facility] LABCLIA [id number] [place] [address] [place] Platelet mean volume (Bld) [Entitic vol] 11.0 fL Normal 9.0-12.7 [facility] Comment on above: Order Comment: Speci men Type: BLOOD SPECIMENOrdering Facility: [facility] Address: [address] [place] [address] Performed By: #### 4 537-7, 44534-6 ####[facility] LABCLIA [id number] [place] [address] [place] Platelets (Bld) [#/Vol] 217 10*3/uL Normal 150-400 [facility] Comment on above: Order Comment: Speci men Type: BLOOD SPECIMENOrdering Facility: [facility] Address: [address] [place] [address] Performed By: #### 4 537-7, 96119-8 ####[facility] LABCLIA [id number] [place] [address] [place] RBC (Bld) [#/Vol] 4.95 10*6/uL Normal 3.90-5.20 [facility] Comment on above: Order Comment: Speci men Type: BLOOD SPECIMENOrdering Facility: [facility] Address: [address] [place] [address] Performed By: #### 4 537-7, 14107-7 ####[facility] LABCLIA [id number] [place] [address] [place] WBC (Bld) [#/Vol] 7.68 10*3/uL Normal 3.70-11.00 [facility] Comment on above: Order Comment: Speci men Type: BLOOD SPECIMENOrdering Facility: [facility] Address: [address] [place] [address] Performed By: #### 4 537-7, 43826-3 ####[facility] LABCLIA [id number] [place] [address] [place] CNOVon 07-03-2024 CNOV Office Visit (FAMPWS ) CRYSTAL THAKUR ([id number]) 1960 F [facility] Date Time Provider Department 07/03/24 1:20 PM [facility] During your visit today, we recorded the following information about you: Pulse Respiration Blood pressure Weight 72/minute 18/minute 132/80 85.6 kg Gabbie Grady MD 07/03/2024 4:57 PM Signed Chief Complaint Patient presents with: F/U 6 Month HPI Crystal Thakur is a 64 year old female who presents here today for 6 month follow up. Here today for her routine follow up. Labs currently in process. GI/Uro - Notes hx of gallstones and fatty liver disease. Does have occasional bouts of gassiness and nausea. Reports BM's overall normal. Is on 3 year Colonoscopy screening through Dr. Tamez due to hx of tubular adenoma. Is scheduled to have this next month. Hx of kidney stones, taking Ursodiol 300 mg 1 pill BID. GERD - Reflux sx controlled on Prilosec 20 mg daily. Lipid: No cholesterol meds as she's not tolerated in the past, but is taking ASA 81 mg daily. Tries to watch diet by eating a mediterranean diet and eating low carb. Tries to avoid foods that can cause inflammation. Tries to stay active during the summer months, less active in the colder months. Has 14 chickens she cares for. DM: Checking BS daily with her Hugh 4-6 x per day or more. Reports having issues with Hugh 2 system and Pharmacy said the 2 system is not commonly used and recommended switching to the 3. FBS range between 80-100, notes sugars have been a little higher lately, this am was 120. No lows lately, but has had some over the past 6 months, generally occurring when she's sleeping. Does have neuropathy in feet. Currently on Metformin 500 mg 1-2 pills daily. HTN: Checks her BP at home, states it's been better (still higher) since being put on Clonidine. Generally BP around 130-140/70-80. Taking Norvasc 10 mg daily, HCTZ 25 mg daily, Clonidine 0.1 mg 1 tab po bid daily, Nadolol 40 mg 1 pill BID and Lisinopril 20 mg 2 pills once daily. No chest pains, dizziness, or SOB. Discussed Nephrology evaluation due to history of FMD of renal arteries and HTN; she will check locally for provider. Memory: Has improved, will be forgetful at times. Rheum: Hx of GCA. Previously took Prednisone; has been off for 15 months and doing well.Takes Nortriptyline 25 mg daily. Fibro: Takes Ibuprofen 800 mg 1 tab po every 6 hours and Robaxin 500 mg 2 tabs po TID Osteopenia - Was advised to take Calcium + D3 due to osteopenia. Is struggling with taking large pills as they get stuck and they will come up or spit them out. Occasionally they stay stuck and she will need to continue swallowing or eat something. States this recently started. Wondering if there is something else she can take or other suggestions. Ortho - Had L shoulder cuff repair surgery and bicep tendonesis done mid January by Dr. Vivar. Overall reports occasional pain with sleeping on it. Did complete PT and is now doing home exercises. Has pretty good ROM. Now wearing a wrist splint on her right wrist after doing some yard work. Was not able to get in to see Dr. Soriano so she saw [facility] who recommended wearing wrist splint for 4 weeks. No noticeable improvement at this time. Does have some issues with OTC Vitamin B Complex medication. Reports it makes her nauseas. Has tried switching and taking it at night but not improving. Has changed brands with no improvement. Reports ongoing issues with her sinuses and feeling congested that come on. Has been seen in the past and was told it was viral. Feels her ears are plugged and may need to be cleaned out. Has seen [facility] for this in the past. Uses Claritin 10 mg prn. HM - Declines Flu, Covid, RSV, Shingles and Pneumonia vaccine. Is due for DM Eye exam this month, will call to schedule this. Mamm screening in November and January 2024. Past medical history, appointments, medications, allergies reviewed. 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 Normal [facility] CRP [Mass/Vol] 0.3 mg/dL Normal <0.9 [facility] Comment on above: Order Comment: Speci men Type: BLOOD SPECIMENOrdering Facility: [facility] Address: [address] [place] [address] Performed By: #### 1 988-5, 31409-0, 10969-2 ####[facility] LABCLIA [id number] [address] [address] [place] Comprehensive metabolic 2000 panelon 07-03-2024 Albumin [Mass/Vol] 4.4 g/dL Normal 3.9-4.9 [facility] Comment on above: Order Comment: Speci men Type: BLOOD SPECIMENOrdering Facility: [facility] Address: [address] [place] [address] Performed By: #### 1 988-5, 99903-8, 37839-8 ####[facility] LABCLIA [id number] [address] [address] [place] ALP [Catalytic activity/Vol] 61 U/L Normal 34-123 [facility] Comment on above: Order Comment: Speci men Type: BLOOD SPECIMENOrdering Facility: [facility] Address: [address] [place] [address] Performed By: #### 1 988-5, 40487-1, 12075-5 ####[facility] LABIA [id number] [place] [address] [place] ALT [Catalytic activity/Vol] 10 U/L Normal 7-38 [facility] Comment on above: Order Comment: Speci men Type: BLOOD SPECIMENOrdering Facility: [facility] Address: [address] [place] [address] Performed By: #### 1 988-5, 02964-0, 80098-0 ####[facility] [id number] [address] [address] [place] Anion gap [Moles/Vol] 14 mmol/L Normal 8-15 [facility] Comment on above: Order Comment: Speci men Type: BLOOD SPECIMENOrdering Facility: [facility] Address: [address] [place], [place] [address] Performed By: #### 1 988-5, 81829-2, 93135-1 ####[facility] LABCLIA [id number] [place] [address] [place] AST [Catalytic activity/Vol] 14 U/L Normal 13-35 [facility] Comment on above: Order Comment: Speci men Type: BLOOD SPECIMENOrdering Facility: [facility] Address: [address] [place] [address] Performed By: #### 1 988-5, 41866-8, 79525-0 ####[facility] LABCLIA [id number] [place] [address] [place] Bilirubin [Mass/Vol] 0.5 mg/dL Normal 0.2-1.3 [facility] Comment on above: Order Comment: Speci men Type: BLOOD SPECIMENOrdering Facility: [facility] Address: [address] [place] [address] Performed By: #### 1 988-5, 81238-4, ####[facility] LABCLIA [id number] [place] [address] [place] Calcium [Mass/Vol] 9.9 mg/dL Normal 8.5-10.2 [facility] Comment on above: Order Comment: Speci men Type: BLOOD SPECIMENOrdering Facility: [facility] Address: [address] [place] [address] Performed By: #### 1 988-5, 18824-4, ####[facility] LABCLIA [id number] [place] [address] [place] Chloride [Moles/Vol] 95 mmol/L Low 98-107 [facility] Comment on above: Order Comment: Speci men Type: BLOOD SPECIMENOrdering Facility: [facility] Address: [address] [place] [address] Performed By: #### 1 988-5, 42523-6, 15629-3 ####[facility] LABCLIA [id number] [place] [address] [place] CO2 [Moles/Vol] 26 mmol/L Normal 22-30 [facility] Comment on above: Order Comment: Speci arturo Type: BLOOD SPECIMENOrdering Facility: [facility] Address: [address] [place] [address] Performed By: #### 1 988-5, 40226-3, ####[facility] LABCLIA [id number] [place] [address] [place] Creatinine [Mass/Vol] 0.65 mg/dL Normal 0.58-0.96 [facility] Comment on above: Order Comment: Speci men Type: BLOOD SPECIMENOrdering Facility: [facility] Address: [address] [place] [address] Performed By: #### 1 988-5, 27342-6, ####[facility] LABCLIA [id number] [place] [address] [place] Creatinine and Glomerular filtration rate.predicted panel (S/P/Bld) 99 mL/min/1.73m??? Normal >=60 [facility] Comment on above: Order Comment: Sade morris Type: BLOOD SPECIMENOrdering Facility: [facility] Address: [address] [place] [address] Result Comment: Tala mated Glomerular Filtration Rate (eGFR) is calculated using the 2020 CKD-EPI creatinine equation. This equation utilizes serum creatinine, sex, and age as parameters. The creatinine assay has traceable calibration to isotope dilution-mass spectrometry. Refer to KDIGO guidelines for clinical interpretation. In patients with unstable renal function, e.g. those with acute kidney injury, the eGFR may not accurately reflect actual GFR. Performed By: #### 1 988-5, 22070-4, ####[facility] LABCLIA [id number] [place] [address] [place] Glucose [Mass/Vol] 109 mg/dL High 74-99 [facility] Comment on above: Order Comment: Marshai men Type: BLOOD SPECIMENOrdering Facility: [facility] Address: [address] [place] [address] Result Comment: The [place] Diabetes Association (ADA) provides guidance for cutoff values for fasting glucose and random glucose. The ADA defines fasting as no caloric intake for at least 8 hours. Fasting plasma glucose results between 100 to 125 mg/dL indicate increased risk for diabetes (prediabetes). Fasting plasma glucose results greater than or equal to 126 mg/dL meet the criteria for diagnosis of diabetes. In the absence of unequivocal hyperglycemia, results should be confirmed by repeat testing. In a patient with classic symptoms of hyperglycemia or hyperglycemic crisis, random plasma glucose results greater than or equal to 200 mg/dL meet the criteria for diagnosis of diabetes. Reference: Standards of Medical Care in Diabetes 2016, [place] Diabetes Association. Diabetes Care. 2016.39(Suppl 1). Performed By: #### 1 988-5, 26423-6, 65023-4 ####[facility] LABCLIA [id number] [place] [address] [place] Potassium [Moles/Vol] 4.4 mmol/L Normal 3.7-5.1 [facility] Comment on above: Order Comment: Speci men Type: BLOOD SPECIMENOrdering Facility: [facility] Address: [address] [place] [address] Performed By: #### 1 988-5, 44702-4, 13038-8 ####[facility] LABCLIA [id number] [place] [address] [place] Protein [Mass/Vol] 7.6 g/dL Normal 6.3-8.0 [facility] Comment on above: Order Comment: Speci men Type: BLOOD SPECIMENOrdering Facility: [facility] Address: [address] [place] [address] Performed By: #### 1 988-5, , ####[facility] LABCLIA [id number] [place] [id number] [place] Sodium [Moles/Vol] 135 mmol/L Low 136-144 [facility] Comment on above: Order Comment: Speci men Type: BLOOD SPECIMENOrdering Facility: [facility] Address: [address] [place] [address] Performed By: #### 1 988-5, 76959-5, 03097-5 ####[facility] LABCLIA [id number] [place] [address] [place] Urea nitrogen [Mass/Vol] 15 mg/dL Normal 7-21 [facility] Comment on above: Order Comment: Speci men Type: BLOOD SPECIMENOrdering Facility: [facility] Address: [address] [place] [address] Performed By: #### 1 988-5, 45918-1, 69716-4 ####[facility] LABIA [id number] [address] [place] ESR Westergren method (Bld) [Velocity]on 07-03-2024 ESR (Bld) [Velocity] 9 mm/h Normal 0-20 [facility] Comment on above: Order Comment: Speci men Type: BLOOD SPECIMENOrdering Facility: [facility] Address: [address] [place] [address] Performed By: #### 4 537-7, 41907-7 ####[facility]IA [id number] [address] [place] HbA1c (Bld)on 07-03-2024 Average glucose Estimated from glycated hemoglobin (Bld) [Mass/Vol] 134 mg/dL Normal [facility] Comment on above: Order Comment: Speci men Type: BLOOD SPECIMENOrdering Facility: [facility] Address: [address] [place] [address] Result Comment: eAG: (Estimated average glucose) is a calculated value from HgbA1c and is manufacturer's service representative of the average blood glucose level in the last 2-3 month period. Performed By: #### 5 5454-3 ####[facility] [id number] [address] [place] HbA1c (Bld) [Mass fraction] 6.3 % High 4.3-5.6 [facility] Comment on above: Order Comment: Sade arturo Type: BLOOD SPECIMENOrdering Facility: [facility] Address: [address] [place] [address] Result Comment: [place] Diabetes Association guidelines indicate that patients with HgbA1c in the range 5.7-6.4% are at increased risk for development of diabetes, and intervention by lifestyle modification may be beneficial. HgbA1c greater or equal to 6.5% is considered diagnostic of diabetes. Performed By: #### 5 5454-3 ####[facility] LABCLIA [id number] [place] [address] [place] Lipid 1996 panelon 4 Cholesterol [Mass/Vol] 367 mg/dL High <200 [facility] Comment on above: Order Comment: Sade morris Type: BLOOD SPECIMENOrdering Facility: [facility] Address: [address] [place] [address] Result Comment: <200 mg/dL, Desirable 200-239 mg/dL, Borderline high >239 mg/dL, High Performed By: #### 1 988-5, 69831-2, 05323-7 ####[facility] LABCLIA [id number] [address] [place] Cholesterol in HDL [Mass/Vol] 47 mg/dL Normal >39 [facility] Comment on above: Order Comment: Sade arturo Type: BLOOD SPECIMENOrdering Facility: [facility] Address: [address] [place] [address] Result Comment: 40-5 9 mg/dL, Acceptable >59 mg/dL, High: Negative risk factor for coronary heart disease <40 mg/dL, Low: Positive risk factor for coronary heart disease Performed By: #### 1 988-5, 20156-0, 65822-4 ####[facility] LABCLIA [id number] [address] [place] Cholesterol in LDL [Mass/Vol] 253 mg/dL High <100 [facility] Comment on above: Order Comment: Speci men Type: BLOOD SPECIMENOrdering Facility: [facility] Address: [address] [place] [address] Result Comment: <100 mg/dL, Optimal 100-129 mg/dL, Near optimal/above optimal 130-159 mg/dL, Borderline high 160-189 mg/dL, High >189 mg/dL, Very high Secondary prevention optimal LDL Cholesterol levels are recommended to be < 70 mg/dL Performed By: #### 1 988-5, 75228-3, 78339-1 ####[facility] LABCLIA [id number] [place] [address] [place] Cholesterol in LDL/Cholesterol in HDL [Mass ratio] 5.38 {ratio} High <2.54 [facility] Comment on above: Order Comment: Marshai men Type: BLOOD SPECIMENOrdering Facility: [facility] Address: [address] [place] [address] Result Comment: Rosio bennett: 1. National Cholesterol Education Program ATP III Guideline At-A-Glance Quick Desk Reference: National Heart, Lung, and Blood [place]. National Institutes of Health. 2001: NIH Publication No. 01-3305. 2. An International Atherosclerosis Society position paper: global recommendations for the management of dyslipidemia: executive summary, Atherosclerosis. 2014: 232(2):410-413. Performed By: #### 1 988-5, , ####[facility] LABCLIA [id number] [place] [address] [place] Cholesterol in VLDL [Mass/Vol] 67 mg/dL High <30 [facility] Comment on above: Order Comment: Sade morris Type: BLOOD SPECIMENOrdering Facility: [facility] Address: [address] [place] [address] Performed By: #### 1 988-5, 71027-7, 33051-3 ####[facility] LABCLIA [id number] [place] [address] [place] Cholesterol non HDL [Mass/Vol] 320 mg/dL High <130 [facility] Comment on above: Order Comment: Speci men Type: BLOOD SPECIMENOrdering Facility: [facility] Address: [address] [place] [address] Result Comment: <130 mg/dL, Optimal 130-159 mg/dL, Near optimal/above optimal 160-189 mg/dL, Borderline high 190-219 mg/dL, High >219 mg/dL, Very high Secondary prevention optimal non HDL Cholesterol levels are recommended to be <100 mg/dL Performed By: #### 1 988-5, 57252-4, 19505-0 ####[facility] LABCLIA [id number] [place] [address] [place] Cholesterol.total/Cho lesterol in HDL [Mass ratio] 7.81 {ratio} High <5.10 [facility] Comment on above: Order Comment: Speci men Type: BLOOD SPECIMENOrdering Facility: [facility] Address: [address] [place] [address] Performed By: #### 1 988-5, 87343-6, 72871-6 ####[facility] LABCLIA [id number] [place] [address] [place] FASTING TIME 12 hrs Normal [facility] Comment on above: Order Comment: Speci men Type: BLOOD SPECIMENOrdering Facility: [facility] Address: [address] [place] [address] Performed By: #### 1 988-5, 96147-8, 38621-5 ####[facility] LABCLIA [id number] [place] [address] [place] Triglyceride [Mass/Vol] 336 mg/dL High <150 [facility] Comment on above: Order Comment: Speci men Type: BLOOD SPECIMENOrdering Facility: [facility] Address: [address] [place] [address] Result Comment: <150 mg/dL, Normal 150-199 mg/dL, Borderline high 200-499 mg/dL, High >499 mg/dL, Very high Performed By: #### 1 988-5, 11705-2, 88486-2 ####[facility] LABCLIA [id number] [place] [address] [place] .Auto Diffon 04-26-2024 Basophil, Absolute 0.1 10 3/mcL Normal 0.0-0.2 [facility] Comment on above: Performed By: #### T YOUSIF ORDONEZ MDW, CMP, ADIFF, CBC, GFR #### [address] [address] Basophils/100 WBC (Bld) 0.8 % Normal 0.0-2.5 [facility] Comment on above: Performed By: #### T MERY, YOUSIF, MDW, CMP, ADIFF, CBC, GFR #### [address] [address] Eosinophil, Absolute 0.2 10 3/mcL Normal 0.0-0.7 [facility] Comment on above: Performed By: #### T YOUSIF ORDONEZ, MDW, CMP, ADIFF, CBC, GFR #### [address] [address] Eosinophils/100 WBC (Bld) 3.0 % Normal 0.0-7.0 [facility] Comment on above: Performed By: #### T MERY, YOUSIF, W, CMP, ADIFF, CBC, GFR #### [address] [address] Lymphocyte, Absolute 1.9 10 3/mcL Normal 0.9-4.3 [facility] Comment on above: Performed By: #### T YOUSIF ORDONEZ, W, CMP, ADIFF, CBC, GFR #### [address] [address] Lymphocytes/100 WBC (Bld) 26.4 % Normal 20.0-40.0 [facility] Comment on above: Performed By: #### T MERY, YOUSIF, MDW, CMP, ADIFF, CBC, GFR #### [address] [address] Monocyte, Absolute 0.6 10 3/mcL Normal 0.1-1.4 [facility] Comment on above: Performed By: #### T YOUSIF ORDONEZ, LENARD, CMP, ADIFF, CBC, GFR #### [address] [address] Monocytes/100 WBC (Bld) 8.3 % Normal 2.0-13.0 [facility] Comment on above: Performed By: #### T YOUSIF ORDONEZ, LENARD, CMP, ADIFF, CBC, GFR #### [address] [address] Neutrophils/100 WBC (Bld) 61.5 % Normal 50.0-75.0 [facility] Comment on above: Performed By: #### T YOUSIF ORDONEZ, LENARD, CMP, ADIFF, CBC, GFR #### [address] [address] .GFRon 04-26-2024 GFR 90 ml/min/1.73sqm Normal [facility] Comment on above: Result Comment: GFR Population mean for , Non- Americans Ages 20-29 = 116 mL/min/1.73 sq.m. Ages 30-39 = 107 mL/min/1.73 sq.m. Ages 40-49 = 99 mL/min/1.73 sq.m. Ages 50-59 = 93 mL/min/1.73 sq.m. Ages 60-69 = 85 mL/min/1.73 sq.m. Ages 70+ = 75 mL/min/1.73 sq.m. Chronic Kidney Disease: Less than 60 mL/min/1.73 square meters End Stage Renal Disease: Less than 15 mL/min/1.73 square meters Performed By: #### T YOUSIF ORDONEZ MDW, CMP, ADIFF, CBC, GFR #### [address] [address] GFR Non- 75 ml/min/1.73sqm Normal [facility] Comment on above: Result Comment: GFR Population mean for , Non- Americans Ages 20-29 = 116 mL/min/1.73 sq.m. Ages 30-39 = 107 mL/min/1.73 sq.m. Ages 40-49 = 99 mL/min/1.73 sq.m. Ages 50-59 = 93 mL/min/1.73 sq.m. Ages 60-69 = 85 mL/min/1.73 sq.m. Ages 70+ = 75 mL/min/1.73 sq.m. Chronic Kidney Disease: Less than 60 mL/min/1.73 square meters End Stage Renal Disease: Less than 15 mL/min/1.73 square meters Performed By: #### T YOUSIF ORDONEZ MDW, CMP, ADIFF, CBC, GFR #### [place] [phone] .MDWon 04-26-2024 Monocyte Distribution Width 17.01 Normal 0.00-20.00 [facility] Comment on above: Result Comment: For ED adult patients suspected of sepsis, MDW<=20.0 does not rule out sepsis or risk of sepsis Performed By: #### T YOUSIF ORDONEZ MDW, CMP, ADIFF, CBC, GFR #### [place] [phone] .NEUABSon 04-26-2024 Neutrophil, Absolute 4.3 10 3/mcL Normal 2.3-8.1 [facility] Comment on above: Performed By: #### T YOUSIF ORDONEZ MDW, CMP, ADIFF, CBC, GFR #### [place] [phone] CBCon 04-26-2024 Erythrocyte distribution width (RBC) [Ratio] 14.7 % Normal 11.5-15.5 [facility] Comment on above: Performed By: #### T YOUSIF ORDONEZ MDW, CMP, ADIFF, CBC, GFR #### [address] [address] Hematocrit (Bld) [Volume fraction] 40.2 % Normal 34.0-46.0 [facility] Comment on above: Performed By: #### T YOUSIF ORDONEZ MDW, CMP, ADIFF, CBC, GFR #### [address] [address] Hgb 13.5 G/dL Normal 12.0-16.0 [facility] Comment on above: Performed By: #### T YOUSIF ORDONEZ MDW, CMP, ADIFF, CBC, GFR #### [address] [address] MCH (RBC) [Entitic mass] 28.5 pg Normal 27.0-33.0 [facility] Comment on above: Performed By: #### T YOUSIF ORDONEZ MDW, CMP, ADIFF, CBC, GFR #### [place] [address] MCHC 33.6 G/dL Normal 32.0-36.0 [facility] Comment on above: Performed By: #### T YOUSIF ORDONEZ MDW, CMP, ADIFF, CBC, GFR #### [place] [address] MCV (RBC) [Entitic vol] 84.9 fL Normal 80.0-99.0 [facility] Comment on above: Performed By: #### T YOUSIF ORDONEZ MDW, CMP, ADIFF, CBC, GFR #### [address] [address] Platelet 202 10 3/mcL Normal 150-450 [facility] Comment on above: Performed By: #### T YOUSIF ORDONEZ MDW, CMP, ADIFF, CBC, GFR #### [address] [address] Platelet mean volume (Bld) [Entitic vol] 8.4 fL Normal 6.6-10.5 [facility] Comment on above: Performed By: #### T YOUSIF ORDONEZ MDW, CMP, ADIFF, CBC, GFR #### [place] [phone] RBC 4.74 10 6/mcL Normal 4.10-5.30 [facility] Comment on above: Performed By: #### T YOUSIF ORDONEZ MDW, CMP, ADIFF, CBC, GFR #### [address] [address] WBC 7.1 10 3/mcL Normal 4.5-10.8 [facility] Comment on above: Performed By: #### T YOUSIF ORDONEZ, W, CMP, ADIFF, CBC, GFR #### [address] [address] CMPon 04-26-2024 Albumin Level 4.3 G/dL Normal 3.4-4.8 [facility] Comment on above: Performed By: #### T YOUSIF ORDONEZ MDW, CMP, ADIFF, CBC, GFR #### [address] [address] Albumin/Globulin [Mass ratio] 1.3 {ratio} Normal 1.1-2.5 [facility] Comment on above: Performed By: #### T YOUSIF ORDONEZ MDW, CMP, ADIFF, CBC, GFR #### [address] [address] ALP [Catalytic activity/Vol] 77 U/L Normal 40-135 [facility] Comment on above: Performed By: #### T YOUSIF ORDONEZ MDW, CMP, ADIFF, CBC, GFR #### [address] [address] ALT [Catalytic activity/Vol] 16 U/L Normal 14-59 [facility] Comment on above: Performed By: #### T YOUSIF ORDONEZ MDW, CMP, ADIFF, CBC, GFR #### [address] [address] AST [Catalytic activity/Vol] 11 U/L Normal 10-40 [facility] Comment on above: Performed By: #### T YOUSIF ORDONEZ MDW, CMP, ADIFF, CBC, GFR #### [address] [address] Bili Total 0.5 mg/dL Normal 0.2-1.0 [facility] Comment on above: Result Comment: Use of this assay is not recommended for patients undergoing treatment with eltrombopag due to the potential for falsely elevated results. Performed By: #### T YOUSIF ORDONEZ MDW, CMP, ADIFF, CBC, GFR #### [address] [address] BUN/Creatinine Ratio 23 ratio Normal 7-27 [facility] Comment on above: Performed By: #### T YOUSIF ORDONEZ MDW, CMP, ADIFF, CBC, GFR #### [place] [address] Calcium [Mass/Vol] 9.3 mg/dL Normal 8.4-10.[address] [facility] Comment on above: Performed By: #### T YOUSIF ORDONEZ MDW, CMP, ADIFF, CBC, GFR #### [place] [address] Chloride [Moles/Vol] 94 mmol/L Low 98-107 [facility] Comment on above: Performed By: #### T YOUSIF ORDONEZ MDW, CMP, ADIFF, CBC, GFR #### [place] [address] CO2 [Moles/Vol] 30 mmol/L Normal 23-31 [facility] Comment on above: Performed By: #### T YOUSIF ORDONEZ MDW, CMP, ADIFF, CBC, GFR #### [place] [address] Creatinine [Mass/Vol] 0.78 mg/dL Normal 0.55-1.02 [facility] Comment on above: Result Comment: Test ing performed on Siemens Dimension EXL analyzer using a modified kinetic Viri technique. Performed By: #### T YOUSIF ORDONEZ MDW, CMP, ADIFF, CBC, GFR #### [address] [address] Electrolyte Balance 8.0 mEq/L Normal 4.0-15.0 [facility] Comment on above: Performed By: #### T YOUSIF ORDONEZ MDW, CMP, ADIFF, CBC, GFR #### [address] [address] Globulin 3.2 G/dL Normal [facility] Comment on above: Performed By: #### T YOUSIF ORDONEZ MDW, CMP, ADIFF, CBC, GFR #### [address] [address] Glucose [Mass/Vol] 115 mg/dL Normal 80-[address] [facility] Comment on above: Performed By: #### T YOUSIF ORDONEZ MDW, CMP, ADIFF, CBC, GFR #### [address] [address] Potassium [Moles/Vol] 4.0 mmol/L Normal 3.5-5.1 [facility] Comment on above: Performed By: #### T YOUSIF ORDONEZ MDW, CMP, ADIFF, CBC, GFR #### [address] [address] Sodium [Moles/Vol] 132 mmol/L Low 136-[address] [facility] Comment on above: Performed By: #### YOUSIF MELENDEZ MDW, CMP, ADIFF, CBC, GFR #### [address] [address] Total Protein 7.5 G/dL Normal 6.4-8.2 [facility] Comment on above: Performed By: #### YOUSIF MELENDEZ MDW, CMP, ADIFF, CBC, GFR #### [address] [address] Urea nitrogen [Mass/Vol] 18 mg/dL Normal 7-18 [facility] Comment on above: Performed By: #### YOUSIF MELENDEZ MDW, CMP, ADIFF, CBC, GFR #### [address] [address] [address] HEAD OR BRAIN W/O CONTRAS Ton 04-26-2024 CT HEAD OR BRAIN W/O CONTRAST ORIGINAL EXAMINATION: CT OF THE HEAD WITHOUT CONTRAST 04/26/2024 11:51 am TECHNIQUE: CT of the head was performed without the administration of intravenous contrast. Automated exposure control, iterative reconstruction, and/or weight based adjustment of the mA/kV was utilized to reduce the radiation dose to as low as reasonably achievable. COMPARISON: None. HISTORY: ORDERING SYSTEM PROVIDED HISTORY: Reason for Exam: Headache FINDINGS: BRAIN/VENTRICLES: There is no acute intracranial hemorrhage, mass effect or midline shift. No abnormal extra-axial fluid collection. The harris-white differentiation is maintained without evidence of an acute infarct. There is no evidence of hydrocephalus. ORBITS: The visualized portion of the orbits demonstrate no acute abnormality. SINUSES: The visualized paranasal sinuses and mastoid air cells demonstrate no acute abnormality. SOFT TISSUES/SKULL: No acute abnormality of the visualized skull or soft tissues. IMPRESSION: No acute intracranial abnormality. Interpreted by: Edwin Banegas DO Preliminary Report By: Edwin Banegas DO Electronically signed By Edwin Banegas DO Dictated Date: 04/26/2024 12:04:38 PM Prelim Date: 04/26/2024 12:05:25 PM Sign Date: 04/26/2024 12:05:25 PM Ordering Provider: TRINI Hurt [facility]Ordered By: SYSTEM SYSTEM on 04-26-2024 Albumin BCP dye [Mass/Vol] 4.3 G/dL Normal 3.4 - 4.8 G/dL AO ADM SS Albumin/Globulin [Mass ratio] 1.3 {ratio} Normal 1.1 - 2.5 ratio AO ADM SS ALP [Catalytic activity/Vol] 77 U/L Normal 40 - 135 U/L AO ADM SS ALT With P-5'-P [Catalytic activity/Vol] 16 U/L Normal 14 - 59 U/L AO ADM SS AST With P-5'-P [Catalytic activity/Vol] 11 U/L Normal 10 - 40 U/L AO ADM SS Basophils (Bld) [#/Vol] 0.1 103/mcL Normal 0.0 - 0.2 10^3/mcL AO Workflow SS Basophils/100 WBC (Bld) 0.8 % Normal 0.0 - 2.5 % AO Workflow SS Bilirubin [Mass/Vol] 0.5 mg/dL Normal 0.2 - 1 .0 mg/dL AO ADM SS Comment on above: Interpretive Data: U se of this assay is not recommended for patients undergoing treatment with eltrombopag due to the potential for falsely elevated results. Calcium [Mass/Vol] 9.3 mg/dL Normal 8.4 - 10. 2 mg/dL AO ADM SS Chloride [Moles/Vol] 94 mmol/L Low 98 - 10 7 mmol/L AO ADM SS CO2 [Moles/Vol] 30 mmol/L Normal 23 - 31 mmol/L AO ADM SS Creatinine [Mass/Vol] 0.78 mg/dL Normal 0.55 - 1.02 mg/dL AO ADM SS Comment on above: Interpretive Data: T esting performed on Siemens Dimension EXL analyzer using a modified kinetic Viri technique. Electrolyte Balance 8.0 mEq/L Normal 4.0 - 15 .0 mEq/L AO ADM SS Eosinophil, Absolute 0.2 103/mcL Normal 0.0 - 0 .7 10^3/mcL AO Workflow SS Eosinophils/100 WBC (Bld) 3.0 % Normal 0.0 - 7.0 % AO Workflow SS Erythrocyte distribution width (RBC) [Ratio] 14.7 % Normal 11.5 - 15.5 % AO Workflow SS GFR/1.73 sq M.predicted among blacks MDRD (S/P/Bld) [Vol rate/Area] 90 ml/min/1.73sqm Invalid Interpretation Code AO Chemistry S Comment on above: Interpretive Data: GFR Population mean for , Non- Americans Ages 20-29 = 116 mL/min/1.73 sq.m. Ages 30-39 = 107 mL/min/1.73 sq.m. Ages 40-49 = 99 mL/min/1.73 sq.m. Ages 50-59 = 93 mL/min/1.73 sq.m. Ages 60-69 = 85 mL/min/1.73 sq.m. Ages 70+ = 75 mL/min/1.73 sq.m. Chronic Kidney Disease: Less than 60 mL/min/1.73 square meters End Stage Renal Disease: Less than 15 mL/min/1.73 square meters GFR/1.73 sq M.predicted among non-blacks MDRD (S/P/Bld) [Vol rate/Area] 75 ml/min/1.73sqm Invalid Interpretation Code AO Chemistry S Comment on above: Interpretive Data: GFR Population mean for , Non- Americans Ages 20-29 = 116 mL/min/1.73 sq.m. Ages 30-39 = 107 mL/min/1.73 sq.m. Ages 40-49 = 99 mL/min/1.73 sq.m. Ages 50-59 = 93 mL/min/1.73 sq.m. Ages 60-69 = 85 mL/min/1.73 sq.m. Ages 70+ = 75 mL/min/1.73 sq.m. Chronic Kidney Disease: Less than 60 mL/min/1.73 square meters End Stage Renal Disease: Less than 15 mL/min/1.73 square meters Globulin 3.2 G/dL Invalid Interpretation Code AO ADM SS Glucose [Mass/Vol] 115 mg/dL Normal 80 - 115 mg/dL AO ADM SS Hematocrit (Bld) [Volume fraction] 40.2 % Normal 34.0 - 46.0 % AO Workflow SS Hemoglobin (Bld) [Mass/Vol] 13.5 G/dL Normal 12.0 - 16.0 G/dL AO Workflow SS Lymphocytes (Bld) [#/Vol] 1.9 103/mcL Normal 0.9 - 4.3 10^3/mcL AO Workflow SS Lymphocytes/100 WBC (Bld) 26.4 % Normal 20.0 - 40.0 % AO Workflow SS MCH (RBC) [Entitic mass] 28.5 pg Normal 27.0 - 33.0 pg AO Workflow SS MCHC 33.6 G/dL Normal 32.0 - 36.0 G/dL AO Workflow SS MCV (RBC) [Entitic vol] 84.9 fL Normal 80.0 - 99.0 fL AO Workflow SS Monocyte distribution width Auto (Bld) [Entitic vol] 17.01 1 Normal 0.00 - 20.00 AO Workflow SS Comment on above: Result Comment: For ED adult patients suspected of sepsis, MDW<=20.0 does not rule out sepsis or risk of sepsis Monocytes (Bld) [#/Vol] 0.6 103/mcL Normal 0.1 - 1.4 10^3/mcL AO Workflow SS Monocytes/100 WBC (Bld) 8.3 % Normal 2.0 - 13.0 % AO Workflow SS Neutrophils (Bld) [#/Vol] 4.3 103/mcL Normal 2.3 - 8.1 10^3/mcL AO Workflow SS Neutrophils/100 WBC (Bld) 61.5 % Normal 50.0 - 75.0 % AO Workflow SS Platelet mean volume (Bld) [Entitic vol] 8.4 fL Normal 6.6 - 10.5 fL AO Workflow SS Platelets (Bld) [#/Vol] 202 103/mcL Normal 150 - 450 10^3/mcL AO Workflow SS Potassium [Moles/Vol] 4.0 mmol/L Normal 3.5 - 5.1 mmol/L AO ADM SS Protein [Mass/Vol] 7.5 G/dL Normal 6.4 - 8.2 G/dL AO ADM SS RBC (Bld) [#/Vol] 4.74 106/mcL Normal 4.10 - 5.3 0 10^6/mcL AO Workflow SS Sodium [Moles/Vol] 132 mmol/L Low 136 - 145 mmol/L AO ADM SS Troponin I.cardiac DL <= 0.01 ng/mL [Mass/Vol] ng/L Normal 0 - 51 ng/L AO ADM SS Comment on above: Interpretive Data: H igh Sensitive Troponin I Reference Ranges: Female: 0-51 ng/L Male: 0-76 ng/L Testing performed on [place] using a homogeneous sandwich chemiluminescent immunoassay based on Par[employer]el technology. Urea nitrogen [Mass/Vol] 18 mg/dL Normal 7 - 18 mg/dL AO ADM SS Urea nitrogen/Creatinine [Mass ratio] 23 ratio Normal 7 - 27 ratio AO ADM SS WBC (Bld) [#/Vol] 7.1 103/mcL Normal 4.5 - 10.8 10^3/mcL AO Workflow SS TROPHSon 04-26-2024 High Sensitivity Troponin I <4 Normal 0-51 [facility] Comment on above: Result Comment: High Sensitive Troponin I Reference Ranges: Female: 0-51 ng/L Male: 0-76 ng/L Testing performed on Dimension EXL using a homogeneous sandwich chemiluminescent immunoassay based on ParAccel technology. Performed By: #### T MERY, ANEU, MDW, CMP, ADIFF, CBC, GFR #### [address] [address] XR CHEST 1 VIEWon 04-26-2024 XR CHEST 1 VIEW ORIGINAL EXAMINATION: ONE XRAY VIEW OF THE CHEST 04/26/2024 11:50 am COMPARISON: None. HISTORY: ORDERING SYSTEM PROVIDED HISTORY: Reason for Exam: chest pain FINDINGS: The lungs are without acute focal process. There is no effusion or pneumothorax. The cardiomediastinal silhouette is without acute process. The osseous structures are without acute process. IMPRESSION: No acute process. Interpreted by: Edwin Banegas DO Preliminary Report By: Edwin Banegas DO Electronically signed By Edwin Banegas DO Dictated Date: 04/26/2024 12:04:06 PM Prelim Date: 04/26/2024 12:04:29 PM Sign Date: 04/26/2024 12:04:29 PM Ordering Provider: TRINI Hurt [facility] CNOVon 04-15-2024 CNOV Office Visit (AGHWW1 ) CRYSTAL THAKUR ([id number]) 1960 [facility] Date Time Provider Department 04/15/24 1:15 PM VITO CONTRERAS [id number] During your visit today, we recorded the following information about you: Respiration Weight Height 16/minute 83.9 kg 1.689 m Vito Contreras PA-C 04/15/2024 1:22 PM Signed Vito Contreras PA-C Department of Orthopaedics April 15, 2024 SURGERY: Left shoulder arthroscopic rotator cuff repair of supraspinatus 1 cm, open biceps tenodesis and acromioplasty SUBJECTIVE: Returns to clinic now 3 months status post the above procedure. Progressing with PT. Exam: Examination of shoulder reveals active forward elevation to 160. ER to 60. 5/5 abduction strength. ASSESSMENT: Z98.890 S/P left rotator cuff repair (primary encounter diagnosis) SUMMARY/PLAN: Patient is doing well. Progress to PT phase 3 exercises. No formal follow up needed, return to clinic with any concerns. Vito Contreras PA-C Allergies As of Date: 04/15/2024 Noted Allergy Reaction CYMBALTA (DULOXETINE) 04/24/2007 14 - Other: See Comments Comments: Intolerance, elevated BP, pulse KEFLEX (CEPHALEXIN) 03/29/2021 8 - GI Upset Comments: Bloating and tears up stomach MONOSODIUM GLUTAMATE (MSG) 09/12/2006 14 - Other: See Comments Comments: Severe headache OXYCODONE 05/14/2020 14 - Other: See Comments Comments: Heart palpitations RABBIT DANDER 10/08/2018 12 - Shortness of Breath HUAN'S WORT 01/22/2007 14 - Other: See Comments Comments: Elevated BP ATORVASTATIN 11/09/2016 17 - Myalgia Comments: Muscle Aches CRESTOR (ROSUVASTATIN) 12/11/2019 17 - Myalgia GABAPENTIN 09/20/2017 14 - Other: See Comments Comments: Depression, suicidal thoughts NIACIN 01/22/2007 5 - Intolerance Comments: Facial numbness NIACINAMIDE 09/12/2006 14 - Other: See Comments Comments: Facial Numbness CATS 01/22/2007 12 - Shortness of Breath ASPARTAME 09/12/2006 14 - Other: See Comments Comments: Severe headache DOXYCYCLINE 01/22/2007 8 - GI Upset ERYTHROMYCIN 01/22/2007 8 - GI Upset GLUTAMIC ACID 08/20/2020 16 - Unknown Comments: Patient is not familiar with this product LATEX 09/12/2006 9 - Itching Comments: Redness SUCRALOSE 08/20/2020 16 - Unknown ZITHROMAX (AZITHROMYCIN) 01/14/2015 8 - GI Upset Comments: GI Date Reviewed: 04/15/2024 Reviewed by: [place] Tech - Fully Assessed Reason for Visit: Established Patient [175] Follow Up [171] Post Op [174] Primary Visit Diagnosis:S/P left rotator cuff repair [Z98.890] Prescriptions as of 04/15/2024 - vitamin E mixed/tocotrienol (VITAMIN E COMPLEX ORAL) Take by mouth. - methocarbamol (ROBAXIN) 500 mg tablet Take 2 tablets by mouth three times a day. As needed for pain - ibuprofen (MOTRIN) 800 mg tablet Take 1 tablet by mouth every 6 hours as needed for pain. - FREESTYLE HUGH 14 DAY SENSOR kit apply NEW SENSOR EVERY 14 DAYS TO UPPER ARM - docusate sodium (COLACE) 100 mg capsule take 1 capsule by mouth twice a day - blood sugar diagnostic (TRUE METRIX GLUCOSE TEST STRIP) test strip Use 4-6 times daily to check blood sugar. Dx:E11.9 insulin:No - metFORMIN ER (GLUCOPHAGE XR) 500 mg 24 hr tablet Take 1 tablet by mouth daily with breakfast. - ondansetron (ZOFRAN) 4 mg tablet Take 1 tablet by mouth every 8 hours as needed. - Lactobacillus acidoph-pectin 75 million cell -100 mg cap Take 1 capsule by mouth once daily. - VITAMIN B COMPLEX ORAL Take by mouth once daily. - omeprazole (PRILOSEC) 20 mg capsule Take 1 capsule by mouth daily before breakfast. 1/2 hr before meal. - hydroCHLOROthiazide 25 mg tablet Take 1 tablet by mouth once daily. - lisinopril (ZESTRIL) 20 mg tablet Take 2 tablets by mouth once daily. - coenzyme Q10 (CO Q-10) 100 mg cap capsule Take 2 capsules by mouth once daily. - nadolol (CORGARD) 40 mg tablet Take 1 tablet by mouth two times a day. - amLODIPine (NORVASC) 10 mg tablet Take 1 tablet by mouth once daily. - VITAMIN K2 ORAL Take 100 mcg by mouth once daily. - nortriptyline (PAMELOR) 25 mg capsule Take 1 capsule by mouth daily at bedtime. - Milk Thistle 150 mg cap Take 1 capsule by mouth once daily. - albuterol HFA (PROVENTIL HFA, VENTOLIN HFA) 90 mcg/actuation inhaler Inhale 2 Puffs as instructed every 4 hours as needed. - nystatin (MYCOSTATIN) powder Apply 1 application to affected area as needed. - benzonatate (TESSALON PERLE) 100 mg capsule Take 1 capsule by mouth three times daily as needed for cough. - calcium carbonate/vitamin D3 (CALCIUM WITH VITAMIN D ORAL) Take 1 tablet by mouth twice daily. 600 mg calcium with 1000mg vitamin D3 - aspirin, enteric coated (ASPIR-LOW) 81 mg EC tablet Take 1 tablet by mouth once daily. - ursodiol (ACTIGALL) 300 mg capsule Take 300 mg by mouth twice daily. - lancets (FREESTYLE LANCETS) 28 gauge misc Test blood sugar(s) one times daily. Dx: Type 2 (more content not included)... Normal [facility] CNOVon 03-04-2024 [facility] Office Visit (AGHWW1 ) CRYSTAL THAKUR ([id number]) 1960 F [place] Date Time Provider Department 03/04/24 1:15 PM VITO CONTRERAS [id number] During your visit today, we recorded the following information about you: Respiration Weight Height 16/minute 83.9 kg 1.689 m Vito Contreras PA-C 03/04/2024 1:29 PM Signed Vito Contreras PA-C Department of Orthopaedics March 04, 2024 SURGERY: Left shoulder arthroscopic rotator cuff repair supraspinatus 1 cm, open biceps tenodesis and acromioplasty SUBJECTIVE: Patient returns to clinic now 6 weeks status post the above procedure. Has been progressing with PT. Exam: Well healed portal sites. Active forward elevation to 110. ASSESSMENT: Z98.890 S/P left rotator cuff repair SUMMARY/PLAN: We will progress to PT phase 2 exercises. No lifting greater than 1 pound. Wean off pain medication as able. Continue to ice as needed. Return to clinic in 6 weeks for repeat examination. Vito Contreras PA-C Allergies As of Date: 03/04/2024 Noted Allergy Reaction CYMBALTA (DULOXETINE) 04/24/2007 14 - Other: See Comments Comments: Intolerance, elevated BP, pulse KEFLEX (CEPHALEXIN) 03/29/2021 8 - GI Upset Comments: Bloating and tears up stomach MONOSODIUM GLUTAMATE (MSG) 09/12/2006 14 - Other: See Comments Comments: Severe headache OXYCODONE 05/14/2020 14 - Other: See Comments Comments: Heart palpitations RABBIT DANDER 10/08/2018 12 - Shortness of Breath HUAN'S WORT 01/22/2007 14 - Other: See Comments Comments: Elevated BP ATORVASTATIN 11/09/2016 17 - Myalgia Comments: Muscle Aches CRESTOR (ROSUVASTATIN) 12/11/2019 17 - Myalgia GABAPENTIN 09/20/2017 14 - Other: See Comments Comments: Depression, suicidal thoughts NIACIN 01/22/2007 5 - Intolerance Comments: Facial numbness NIACINAMIDE 09/12/2006 14 - Other: See Comments Comments: Facial Numbness CATS 01/22/2007 12 - Shortness of Breath ASPARTAME 09/12/2006 14 - Other: See Comments Comments: Severe headache DOXYCYCLINE 01/22/2007 8 - GI Upset ERYTHROMYCIN 01/22/2007 8 - GI Upset GLUTAMIC ACID 08/20/2020 16 - Unknown Comments: Patient is not familiar with this product LATEX 09/12/2006 9 - Itching Comments: Redness SUCRALOSE 08/20/2020 16 - Unknown ZITHROMAX (AZITHROMYCIN) 01/14/2015 8 - GI Upset Comments: GI Date Reviewed: 03/04/2024 Reviewed by: Mira Edward LPN - Fully Assessed Reason for Visit: Post Op [174] Visit Diagnosis:S/P left rotator cuff repair [Z98.890] Order(s):traMADol (ULTRAM) 50 mg tabletTake one tablet by mouth every 6 hours as needed for pain.Disp: 28 tabletRfl: 0 Prescriptions as of 03/04/2024 - traMADol (ULTRAM) 50 mg tablet Take one tablet by mouth every 6 hours as needed for pain. - docusate sodium (COLACE) 100 mg capsule take 1 capsule by mouth twice a day - blood sugar diagnostic (TRUE METRIX GLUCOSE TEST STRIP) test strip Use 4-6 times daily to check blood sugar. Dx:E11.9 insulin:No - metFORMIN ER (GLUCOPHAGE XR) 500 mg 24 hr tablet Take 1 tablet by mouth daily with breakfast. - ondansetron (ZOFRAN) 4 mg tablet Take 1 tablet by mouth every 8 hours as needed. - Lactobacillus acidoph-pectin 75 million cell -100 mg cap Take 1 capsule by mouth once daily. - VITAMIN B COMPLEX ORAL Take by mouth once daily. - methocarbamol (ROBAXIN) 500 mg tablet Take 2 tablets by mouth three times a day. As needed for pain - omeprazole (PRILOSEC) 20 mg capsule Take 1 capsule by mouth daily before breakfast. 1/2 hr before meal. - FREESTYLE HUGH 14 DAY SENSOR kit apply NEW SENSOR EVERY 14 DAYS TO UPPER ARM - hydroCHLOROthiazide 25 mg tablet Take 1 tablet by mouth once daily. - lisinopril (ZESTRIL) 20 mg tablet Take 2 tablets by mouth once daily. - coenzyme Q10 (CO Q-10) 100 mg cap capsule Take 2 capsules by mouth once daily. - nadolol (CORGARD) 40 mg tablet Take 1 tablet by mouth two times a day. - amLODIPine (NORVASC) 10 mg tablet Take 1 tablet by mouth once daily. - VITAMIN K2 ORAL Take 100 mcg by mouth once daily. - nortriptyline (PAMELOR) 25 mg capsule Take 1 capsule by mouth daily at bedtime. - Milk Thistle 150 mg cap Take 1 capsule by mouth once daily. - ibuprofen (MOTRIN) 800 mg tablet Take 1 tablet by mouth every 6 hours as needed for pain. - albuterol HFA (PROVENTIL HFA, VENTOLIN HFA) 90 mcg/actuation inhaler Inhale 2 Puffs as instructed every 4 hours as needed. - nystatin (MYCOSTATIN) powder Apply 1 application to affected area as needed. - benzonatate (TESSALON PERLE) 100 mg capsule Take 1 capsule by mouth three times daily as needed for cough. - calcium carbonate/vitamin D3 (CALCIUM WITH VITAMIN D ORAL) Take 1 tablet by mouth twice daily. 600 mg calcium with 1000mg vitamin D3 - aspirin, enteric coated (ASPIR-LOW) 81 mg EC tablet Take 1 tablet by mouth once daily. - ursodiol (ACTIGALL) 300 mg capsule Take 300 mg by mouth twice (more content not included)... [facility] Visit (AGHWW1 ) CRYSTAL THAKUR ([id number]) 1960 F [place] Date Time Provider Department 02/05/24 2:45 PM [facility] During your visit today, we recorded the following information about you: Respiration Weight Height 20/minute 83.9 kg 1.689 m Wilamr Vivar MD 02/06/2024 12:12 PM Signed PAIN EVALUATION 02/04/2024 0821 02/05/2024 1448 Pain Level: 9 9 Pain Location: Shoulder-Left Shoulder-Left Description: Aching;Radiating;Raw;S tiffness;Tenderness;Ti ghtness;Wound Sharp;Shooting Duration Amount of Time: 48 -- Duration Units: Hours -- Frequency: Continuous Intermittent Intervention/Comfort measure: Medication;Reposition; Relaxation;Cold;Distra ctions;Exercise;Heat;M assage;Pillow support;Positioning;Sp linting;Support surface -- Comments: Pain was starting to be less bad then 2 days ago pain and rom is awful -- Crystal Thakur presents today for: First post-surgery follow up CHANGES SINCE LAST VISIT: Post-surgical recovery uneventful. Pain appropriately controlled with medication. Wearing sling most of the time. No falls or other injuries. Resp 20 Ht 168.9 cm (5' 6.5") Wt 83.9 kg (185 lb) LMP 04/17/2016 (Exact Date) BMI 29.41 kg/m? EXAMINATION FINDINGS: Mild shoulder edema and ecchymosis. Incisions healing without signs of infection. Mild discomfort with gentle passive range of motion within a limited range. Neurovascularly intact in the shoulder, elbow, wrist, and hand. IMAGING: No imaging today MEDICAL DECISION MAKING: Functional Plan: Physical therapy Phase 1 Lifting limit 1 pound or less, avoid sudden movements with the shoulder Sling use encouraged for comfort and to protect the shoulder when out of the house Wean use of pain medication. Ice the shoulder often. Tylenol/NSAID use encouraged. Return in 4 weeks for repeat examination. Information for medical decision making today comes from review of the following data: History, exam, imaging Wilmar Vivar MD Shoulder AND Elbow Surgeon Department of Orthopaedic Surgery [facility] Medical Decision Making: Medical Decision Making Level: 1 - N/A Allergies As of Date: 02/05/2024 Noted Allergy Reaction CYMBALTA (DULOXETINE) 04/24/2007 14 - Other: See Comments Comments: Intolerance, elevated BP, pulse KEFLEX (CEPHALEXIN) 03/29/2021 8 - GI Upset Comments: Bloating and tears up stomach MONOSODIUM GLUTAMATE (MSG) 09/12/2006 14 - Other: See Comments Comments: Severe headache OXYCODONE 05/14/2020 14 - Other: See Comments Comments: Heart palpitations RABBIT DANDER 10/08/2018 12 - Shortness of Breath HUAN'S WORT 01/22/2007 14 - Other: See Comments Comments: Elevated BP ATORVASTATIN 11/09/2016 17 - Myalgia Comments: Muscle Aches CRESTOR (ROSUVASTATIN) 12/11/2019 17 - Myalgia GABAPENTIN 09/20/2017 14 - Other: See Comments Comments: Depression, suicidal thoughts NIACIN 01/22/2007 5 - Intolerance Comments: Facial numbness NIACINAMIDE 09/12/2006 14 - Other: See Comments Comments: Facial Numbness CATS 01/22/2007 12 - Shortness of Breath ASPARTAME 09/12/2006 14 - Other: See Comments Comments: Severe headache DOXYCYCLINE 01/22/2007 8 - GI Upset ERYTHROMYCIN 01/22/2007 8 - GI Upset GLUTAMIC ACID 08/20/2020 16 - Unknown Comments: Patient is not familiar with this product LATEX 09/12/2006 9 - Itching Comments: Redness SUCRALOSE 08/20/2020 16 - Unknown ZITHROMAX (AZITHROMYCIN) 01/14/2015 8 - GI Upset Comments: GI Date Reviewed: 02/05/2024 Reviewed by: Dimple Virk LPN - Fully Assessed Reason for Visit: Post Op [174] Pain [78] Primary Visit Diagnosis:S/P left rotator cuff repair [Z98.890] Prescriptions as of 02/06/2024 - HYDROcodone-acetaminop hen (NORCO) 5-325 mg per tablet Take one tablet by mouth every 6 hours as needed for postoperative pain - ondansetron (ZOFRAN) 4 mg tablet Take 1 tablet by mouth every 8 hours as needed. - docusate sodium (COLACE) 100 mg capsule Take 1 capsule by mouth two times a day. - Lactobacillus acidoph-pectin 75 million cell -100 mg cap Take 1 capsule by mouth once daily. - VITAMIN B COMPLEX ORAL Take by mouth once daily. - methocarbamol (ROBAXIN) 500 mg tablet Take 2 tablets by mouth three times a day. As needed for pain - omeprazole (PRILOSEC) 20 mg capsule Take 1 capsule by mouth daily before breakfast. 1/2 hr before meal. - FREESTYLE HUGH 14 DAY SENSOR kit apply NEW SENSOR EVERY 14 DAYS TO UPPER ARM - hydroCHLOROthiazide 25 mg tablet Take 1 tablet by mouth once daily. - lisinopril (ZESTRIL) 20 mg tablet Take 2 tablets by mouth once daily. - coenzyme Q10 (CO Q-10) 100 mg cap capsule Take 2 capsules by mouth once daily. - nadolol (CORGARD) 40 mg tablet Take 1 tablet by mouth two times a day. - amLODIPine (NORVASC) 10 mg tablet Take 1 tablet by mouth once (more content not included)... Normal [facility] ANES POSTPROC EVALon 024 ANES POSTPROC EVAL HNO ID: [id number] Author: MAURICE CHRISTIAN MD Service: Anesthesiology Author Type: Anesthesiologist Type: Anesthesia Postprocedure Evaluation Filed: 01/21/2024 12:56 Note Text: POST ANESTHESIA EVALUATION NOTE : 1960 Procedure Summary Date: 01/21/24 Room / Location: [address] Anesthesia Start: 1107 Anesthesia Stop: 1231 Procedure: ARTHROSCOPY SHOULDER BICEPS TENODESIS (Left: Shoulder) Diagnosis: Bicipital tendinitis, left (Bicipital tendinitis, left [M75.22]) Surgeons: Wilmar Vivar MD Responsible Provider: Maurice Christian MD Anesthesia Type: general ASA Status: 2 Anesthesia Type: general Airway Type: ETT Last Vitals Vitals Value Taken Time BP 118/87 01/21/24 1249 Temp 36.1 ?C (97 ?F) 01/21/24 1228 Pulse 62 01/21/24 1255 Resp 22 01/21/24 1255 SpO2 94 % 01/21/24 1255 Vitals shown include unfiled device data. Post Anesthesia Patient Status Patient Evaluation: bedside. Anticipated Disposition: phase 2 then home. Neurological Status: aware and responsive. Pulmonary Status: breathing comfortably on room air Airway Control: returned to baseline unsupported. Cardiovascular Status: stable. Pain Management: clinically adequate - multimodal analgesia pain management approach Postoperative Hydration: acceptable. Intraoperative Events: no significant anesthesia events Post Operative Nausea/Vomiting Status: no significant post operative nausea or vomiting Recommendation: continue current plan of care. Anesthesia Observations No Documentation SIGNATURE: Maurice Christian MD PATIENT NAME: Crystal Thakur DATE: January 21, 2024 TIME: 12:56 PM CSN: [id number] [facility] ANES PRE-OPon 01-21-2024 ANES PRE-OP HNO ID: [id number] Author: MAURICE CHRISTIAN MD Service: Anesthesiology Author Type: Anesthesiologist Type: Anesthesia Preprocedure Evaluation Filed: 01/21/2024 09:54 Note Text: ANESTHESIOLOGY DAY OF SURGERY NOTE : 1960 Procedure Information Date/Time: 01/21/24 1045 Procedure: ARTHROSCOPY SHOULDER BICEPS TENODESIS (Left: Shoulder) - INTERSCALENE BLOCK Location: [place] [address] / [facility] Surgeons: Wilmar Vivar MD Estimated body mass index is 29.41 kg/m? as calculated from the following: Height as of this encounter: 168.9 cm (5' 6.5"). Weight as of this encounter: 83.9 kg (185 lb). Most recent hematocrit and potassium results: Hematocrit 40.2 06/20/2023 Potassium 4.1 12/24/2023 Relevant Problems CARDIO (+) Aortic atherosclerosis (HCC) (+) Fibromuscular dysplasia (HCC) (+) Giant cell arteritis (HCC) (+) HYPERTENSION ENDO (+) Controlled type 2 diabetes mellitus without complication, without long-term current use of insulin (HCC) GI (+) Esophageal reflux -RENAL (+) Left renal stone Other (+) Impingement syndrome of left shoulder (+) Impingement syndrome of right shoulder I - PHYSICAL EVALUATION AIRWAY Patient intubated: No. Tracheostomy tube not present Mallampati: II. TM distance: >3 FB. Neck ROM: full ROM without neurological symptoms. Mouth opening: adequate. Short neck: no. Thick neck: no DENTAL Dental findings: edentulous. Dentures, upper: complete. Dentures, lower: complete. II - ANESTHESIA PLAN ASA Score: 2 Anesthetic Plan: general Airway type: ETT The patient is not a current smoker. NPO Status: adequate Beta Narinder Monitoring Plan Monitoring plan: standard ASA. Post Procedure Analgesic Plan Postoperative analgesic plan: multimodal analgesia. Informed Consent Anesthetic risks, benefits, alternatives, personnel and consent discussed: yes. Patient / Responsible Alliance Party agrees to proceed: yes Patient / Surrogate agrees to blood products: Yes Vitals Value Taken Time BP 137/74 01/21/24 0846 Pulse 64 01/21/24 0846 Resp 18 01/21/24 0846 Temp 36.2 ?C (97.2 ?F) 01/21/24 0846 SpO2 97 % 01/21/24 0846 Facility-Administered Medications as of 01/21/2024 Medication Dose Route Frequency [COMPLETED] lidocaine 10 mg/mL (1 %) 1-2 mg injection (XYLOCAINE) 0.1-0.2 mL INTRADERMAL PRN lactated ringers iv infusion 5-30 mL/hr INTRAVENOUS CONTINUOUS NaCl 0.9% iv flush bag 20 mL INTRAVENOUS PRN vancomycin 1.5 g in D5W 250 mL (VANCOCIN) 1.5 g INTRAVENOUS Pre-Op Once Outpatient Medications as of 01/21/2024 Medication Sig Lactobacillus acidoph-pectin 75 million cell -100 mg cap Take 1 capsule by mouth once daily. VITAMIN B COMPLEX ORAL Take by mouth once daily. hydroCHLOROthiazide 25 mg tablet Take 1 tablet by mouth once daily. lisinopril (ZESTRIL) 20 mg tablet Take 2 tablets by mouth once daily. coenzyme Q10 (CO Q-10) 100 mg cap capsule Take 2 capsules by mouth once daily. nadolol (CORGARD) 40 mg tablet Take 1 tablet by mouth two times a day. amLODIPine (NORVASC) 10 mg tablet Take 1 tablet by mouth once daily. VITAMIN K2 ORAL Take 100 mcg by mouth once daily. ondansetron (ZOFRAN) 4 mg tablet Take 1 tablet by mouth every 8 hours as needed. nortriptyline (PAMELOR) 25 mg capsule Take 1 capsule by mouth daily at bedtime. Milk Thistle 150 mg cap Take 1 capsule by mouth once daily. metFORMIN ER (GLUCOPHAGE XR) 500 mg 24 hr tablet Take 3 tablets by mouth daily with breakfast. (Patient taking differently: Take 500 mg by mouth daily with breakfast.) ibuprofen (MOTRIN) 800 mg tablet Take 1 tablet by mouth every 6 hours as needed for pain. albuterol HFA (PROVENTIL HFA, VENTOLIN HFA) 90 mcg/actuation inhaler Inhale 2 Puffs as instructed every 4 hours as needed. nystatin (MYCOSTATIN) powder Apply 1 application to affected area as needed. calcium carbonate/vitamin D3 (CALCIUM WITH VITAMIN D ORAL) Take 1 tablet by mouth twice daily. 600 mg calcium with 1000mg vitamin D3 aspirin, enteric coated (ASPIR-LOW) 81 mg EC tablet Take 1 tablet by mouth once daily. ursodiol (ACTIGALL) 300 mg capsule Take 300 mg by mouth twice daily. loratadine (CLARITIN) 10 mg ORAL tablet Take 1 tablet by mouth once daily. (Patient taking differently: Take 10 mg by mouth as needed.) FREESTYLE HUGH 14 DAY SENSOR kit apply NEW SENSOR EVERY 14 DAYS TO UPPER ARM benzonatate (TESSALON PERLE) 100 mg capsule Take 1 capsule by mouth three times daily as needed for cough. blood sugar diagnostic (TRUE METRIX GLUCOSE TEST STRIP) test strip Use 4-6 times daily to check blood sugar. Dx:E11.9 insulin:No lancets (FREESTYLE LANCETS) 28 gauge misc Test blood sugar(s) one times daily. Dx: Type 2 DM - Controlled E11.9 Insulin: No I have interviewed and examined the patient. I have reviewed the medical record and/or the pre-anesthesia evaluation, pertinent labs, and test results. This contains updated information obtained within 48 hours of Surgery/Pr (more content not included)... [facility] HISTORY PHYSICALon HISTORY PHYSICAL HNO ID: [id number] Author: WILMAR VIVAR MD Service: Orthopaedic Surgery Author Type: Physician Type: H&P Filed: 01/21/2024 11:05 Note Text: UPDATED HISTORY AND PHYSICAL EXAMINATION SERVICE DATE: 01/21/2024 SERVICE TIME: 11:05 AM PHYSICAL EXAM MUST BE COMPLETED ON ADMISSION The History and Physical (completed in the past 30 days) has been reviewed and the patient has been examined. The contents accurately reflect the patient's condition with the following additions or revisions since the HANDP was completed. Examination indicates no changes. This HANDP can be found in the Electronic Medical Record dated 01/17/24. SIGNATURE: Wilmar Vivar MD PATIENT NAME: Crystal Thakur DATE: January 21, 2024 TIME: 11:05 AM [facility] OPERATIVE NOon 01-21-2024 OPERATIVE NO HNO ID: [id number] Author: WILMAR VIVAR MD Service: Orthopaedic Surgery Author Type: Physician Type: Operative Report Filed: 01/21/2024 13:49 Note Text: OPERATIVE/PROCEDURE REPORT LOG ID: [id number] SURGERY/PROCEDURE DATE: 01/21/2024 INCISION/PROCEDURE START TIME: 11:38 AM INCISION CLOSE/PROCEDURE END TIME: 12:26 PM SURGEON(S)/PROCEDURALI ST(S) AND CLOTH INSPECTOR(S): Surgeon(s) and Role: * Wilmar Vivar MD - Primary * Andrés Masters MD - Resident - Assisting Physician Furniture Upholsterer: Vito Contreras PA-C SURGERY/PROCEDURE(S): Left shoulder arthroscopic rotator cuff repair of supraspinatus (1 cm), open biceps tenodesis, arthroscopic acromioplasty ANESTHESIA: General SURGERY/PROCEDURE DETAILS: Crystal Thakur is a 63 year old woman who presented with left shoulder pain that had been limiting the ability to perform daily activities and had not responded to conservative management. Exam and MRI findings were concerning for bicipital tendinitis. I offered arthroscopic surgery for the purposes of pain relief and improved function of the shoulder. Medically relevant risks, benefits, and alternatives to the procedure were discussed in detail in the office prior to surgery. No guarantees as to the outcome of surgery were given or implied. The patient expressed agreement and understanding with the plan prior to scheduling surgery. The patient was greeted in the preoperative holding area and identified by name and date of . A preoperative nerve block was administered. The patient was taken to the operating room and transferred to the operating table in the supine position. General anesthesia was induced with endotracheal intubation. The patient was placed in the beach chair position with bilateral lower extremities padded and bilateral lower extremity sequential compression devices were applied. Intravenous antibiotic was given. The left shoulder and upper extremity were prepped and draped in a sterile fashion. A time out procedure was performed and this confirmed the correct patient, site, and procedure to be performed. I began by performing a diagnostic arthroscopy of the shoulder using a standard posterior portal. Examination of the humeral and glenoid cartilage revealed Outerbridge grade 2 (focal) humerus and grade 0 glenoid. The glenoid labrum was torn superiorly with extension anteriorly. There was a Oxford complex noted. Long head of biceps tendon was visualized and there was no tearing of the tendon. I made an anterior portal under direct visualization using outside in technique after first localizing with a spinal needle. A probe was inserted into the joint and this was used to test the integrity of intra-articular structures. The long head of biceps tendon anchor was found to be unstable. Medial support of the biceps tendon was torn. The upper border of subscapularis was examined after resecting a small amount of synovial tissue from within the rotator interval. This was found to be intact. The undersurface of the supraspinatus and infraspinatus tendons was examined and high-grade central tearing was visible. The long head of biceps tendon was then released from its origin on the superior glenoid and the tendon stump was resected with a shaver. Labral debridement was performed using the shaver. Final pictures were taken and the arthroscope was removed from the joint. Next I entered the subacromial space using the posterior portal. Bursal tissue overlying the rotator cuff was cleared with a shaver after making a lateral portal under direct visualization after localizing with a spinal needle. Once the bursa had been resected with shaver I inserted the arthroscope into the lateral portal for full visualization of the subacromial space and rotator cuff. This revealed high-grade tearing of the supraspinatus insertion with poor quality tendon attachment. The tear was completed centrally for a distance of 1 cm anterior to posterior. Arthroscopic rotator cuff repair was then performed using a single-row technique. Remaining bursa and scar tissue was removed from the greater tuberosity to fully visualize the tear. I used a shaver to debride the end of the tendon to healthy tissue. I used a bur to resect a small amount of bone to create a bleeding surface for repair. Tendon mobility was tested using a grasper and found to be excellent, and tissue quality was also suitable for single-row repair. I grasped the tendon using a Scorpion suture passer and passed 4 limbs of suture from inferior to superior, medial to the tendon edge. Single row repair was completed using 2 anchors. Solid fixation was confirmed under direct visualization and by use of a probe. Acromial spur was visualized and this was found to come in to close proximity to the supraspinatus insertion on range of motion testing. I performed a subacromial decompression to resect this to a flat surface us (more content not included)... [facility] NURSING PROGon 01-18-2024 NURSING PROG HNO ID: [id number] Author: ADRI BARNHART APRN.CNP Service: General Surgery Author Type: Nurse Practitioner Type: Nursing Progress Note Filed: 01/18/2024 09:25 Note Text: Summary: anesthesia Reviewed patient health history and CTA neck from [address] Beaver in anesthesia. Per Dr. Beaver, OK to proceed with procedure as planned at [facility]. [facility] HISTORY PHYSICALon HISTORY PHYSICAL HNO ID: [id number] Author: MARAH PINZON APRN.SHELLFISH GROWER Service: ? Author Type: Nurse Practitioner Type: H&P Filed: 01/17/2024 13:47 Note Text: [facility] HISTORY AND PHYSICAL EXAMINATION SERVICE DATE: 01/17/2024 SERVICE TIME: 1:00 PM PRIMARY CARE PHYSICIAN: Gabbie Grady MD Assessment Patient has the following medical conditions which may affect monique-operative course: Pre-op examination see note for medical conditions which may affect monique-operative course that were addressed at today's visit. Bicipital tendinitis, left Surgery scheduled 01/21/24. HYPERTENSION Nadolol and HCTZ- instructed to take morning of surgery. Amlodipine- instructed to continue as normal, as patient takes in the evenings. Lisinopril- instructed to hold morning of surgery. Hyperlipidemia No medication. Statin intolerant. Diet and lifestyle modification. Aortic atherosclerosis (HCC) CT lung 11/07/22: Other findings: The central airways are patent without endobronchial lesion. No focal consolidation. No pleural effusion. 9 mm calcified nodule in the isthmus of the thyroid gland. No thoracic lymphadenopathy. Mild atherosclerotic calcifications of the thoracic aorta. The thoracic aorta and main pulmonary artery are normal in caliber. The cardiac chambers are normal in size. Minimal coronary artery calcifications present. No pericardial effusion. Mild degenerative changes of the thoracic spine. The soft tissues of the chest wall are unremarkable. There is cholelithiasis. The imaged upper abdomen discloses no acute abnormality. Fibromuscular dysplasia (HCC) Stable. Diagnosed in 2016. In renal and carotid arteries. Aspirin- instructed to follow prescribing physician and surgeon's pre-op instructions. Has not seen [facility] within the last year- managed by PCP. Abdominal US 11/24/21: ESOPHAGEAL REFLUX Omeprazole. Instructed to take morning of surgery. Controlled type 2 diabetes mellitus without complication, without long-term current use of insulin (HCC) Metformin- instructed to hold morning of surgery. Hemoglobin A1C (%) Date Value 12/24/2023 6.3 03/28/2021 6.9 Giant cell arteritis (HCC) Diagnosed in 2020. Was on high dose Prednisone for 9 months- has since been discontinued. Tobacco abuse, in remission Former cigarette smoker. Quit 2013. 32 pack years. Jung Activity Status Index: METS: Climb a flight of stairs or walk up a hill (5.50 METs) DASI Score: 5.5 Patient denies any chest pain or undue shortness of breath with the above physical activity. ARISCAT Score: Age: 51-80 Preoperative SpO2: >=96% Respiratory infection in the last month: No Preoperative anemia: Yes Surgical incision: peripheral Duration of surgery: <2 hrs Emergency procedure: No ARISCAT Score: 14 ANESTHESIA FINDINGS: Intubation History: No history of difficult intubation. No abnormal airway history Significant Anesthesia Considerations: none Airway History: No history of difficult airway No abnormal airway history I - PHYSICAL EVALUATION AIRWAY Patient intubated: No. DENTAL Dentures, upper: complete. Dentures, lower: complete. II - ANESTHESIA PLAN Anesthetic Plan: general Beta Narinder Monitoring Plan Post Procedure Analgesic Plan Prepared for Surgery: CONSULTS: Patient does not require consults for optimization at this time Planned Anesthetic: general The Following Tests/Procedures Have Been Initiated: No orders entered in [facility] per surgeon. REASON FOR VISIT: Crystal Thakur is a 63 year old female who is scheduled for Procedure(s) with comments: ARTHROSCOPY SHOULDER BICEPS TENODESIS (Left) - INTERSCALENE BLOCK at the request of Dr. Wilmar Vivar for routine HANDP. My final recommendation will be communicated back to the requesting physician by way of shared medical record or letter. Subjective The patient has the following: ACTIVE PROBLEM LIST HYPERTENSION Hyperlipidemia Esophageal Reflux Fibromyalgia Osteoarthrosis, Unspecified Whether Generalized Or Localized, Lower Leg Obesity, Unspecified Edema Vitamin D Deficiency Benign Neoplasm of Colon Cervicalgia Dizziness and Giddiness Chondromalacia of Patella Pain in Joint, Hand Cmc Arthritis, Thumb, Degenerative Cervical High Risk Human Papillomavirus (Hpv) Dna Test Positive Druj (Distal Radioulnar Joint) Arthrosis, Primary Controlled Type 2 Diabetes Mellitus Without Complication, Without Long-Term Current Use of Insulin (Hcc) Fibromuscular Dysplasia (Hcc) Heart Palpitations Status Post Total Right Knee Replacement Using Cement Rectocele Complete Uterine Prolapse Obesity, Class I, Bmi 30-34.9 Aortic Atherosclerosis (Hcc) Statin Intolerance Tobacco Abuse, in Remission Encounter for Current [facility] Use of Antiplatelet Drug Family History of Intracranial Aneurysms S/P Right Rotator C (more content not included)... [facility] DBT Breast - right diagnosti c for implanton 01-07-2024 IMPRESSION: BENIGN FINDING There is no mammographic evidence of malignancy. A 1 year screening mammogram is recommended. Jennifer Retana M.D., mc/lia:01/07/2024 14:09:22 Automatic Mold Sander(s): RT Sandi(Bob)(M), [facility] Mammogram BI-RADS: 2 Benign finding Multiple national specialty organizations have released breast cancer screening guidelines for women at average risk for developing breast cancer - guidelines that are based on both evidence and opinion, yet differ on when to start and how often to screen for breast cancer. With representation from Breast Imaging, Internal Medicine, Women's Health, Family Medicine, and Medical/Surgical Oncology, the [facility] has carefully reviewed the data and reached the following consensus: 1) All women should engage in shared decision-making with their providers to decide when to start and how often to screen; 2) All women should have the opportunity to start screening mammography at age 40; 3) For women ages 45-55, we recommend annual screening mammograms; 4) For women ages 55 and over, we support both the transition from an annual to a biennial interval if this aligns more with patient's values and preferences, or continuation with annual screening; 5) All women should discuss with their providers when to stop screening mammograms. 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: Lia Transcribe Date/Time: Jan 07 2024 1:24P Dictated by : JENNIFER RETANA MD This examination was interpreted and the report reviewed and electronically signed by: JNENIFER RETANA MD on Jan 07 2024 2:09PM [facility] * * *Final Report* * * DATE OF EXAM: Jan 07 2024 2:06PM 0629 - [facility] DIAG W JOURDAN RT / PROCEDURE REASON: R92.8-Abnormal mammogram * * * * Physician Interpretation * * * * #[id number] - [facility] DIAG W JOURDAN RT UNILATERAL RIGHT DIGITAL DIAGNOSTIC MAMMOGRAM TOMOSYNTHESIS WITH CAD: 01/07/2024 HISTORY: R92.8-Abnormal Mammogram / Call back/abnormal mamm: Right. RESULT: TECHNIQUE: The study was acquired using full field digital technology and interpreted from soft copy. Digital Breast Tomosynthesis (DBT) images were obtained and used to assist in the interpretation of this examination. Current study was also evaluated with a Computer Aided Detection (CAD). Comparison is made to exams dated: 11/26/2023 mammogram, 10/17/2022 mammogram, and 08/26/2021 mammogram - [facility]. There are scattered areas of fibroglandular density in the right breast. There are benign scattered skin calcifications in the right breast at 5 and 6 o'clock. No significant masses, calcifications, or other findings are seen in the breast. [facility]/07/[facility]24 * * *Final Report* * * DATE OF EXAM: Jan 07 2024 2:06PM [facility] 0629 - [place] DIAG W JOURDAN RT / PROCEDURE REASON: R92.8-Abnormal mammogram * * * * Physician Interpretation * * * * #[id number] - [facility] DIAG W JOURDAN RT UNILATERAL RIGHT DIGITAL DIAGNOSTIC MAMMOGRAM TOMOSYNTHESIS WITH CAD: 01/07/2024 HISTORY: R92.8-Abnormal Mammogram / Call back/abnormal mamm: Right. RESULT: TECHNIQUE: The study was acquired using full field digital technology and interpreted from soft copy. Digital Breast Tomosynthesis (DBT) images were obtained and used to assist in the interpretation of this examination. Current study was also evaluated with a Computer Aided Detection (CAD). Comparison is made to exams dated: 11/26/2023 mammogram, 10/17/2022 mammogram, and 08/26/2021 mammogram - [facility]. There are scattered areas of fibroglandular density in the right breast. There are benign scattered skin calcifications in the right breast at 5 and 6 o'clock. No significant masses, calcifications, or other findings are seen in the breast. IMPRESSION IMPRESSION: BENIGN FINDING There is no mammographic evidence of malignancy. A 1 year screening mammogram is recommended. Jennifer Retana M.D., mc/lia:01/07/2024 14:09:22 Automatic Mold Sander(s): RT Sandi(R)(M), [facility] Mammogram BI-RADS: 2 Benign finding Multiple national specialty organizations have released breast cancer screening guidelines for women at average risk for developing breast cancer - guidelines that are based on both evidence and opinion, yet differ on when to start and how often to screen for breast cancer. With representation from Breast Imaging, Internal Medicine, Women's Health, Family Medicine, and Medical/Surgical Oncology, the [facility] has carefully reviewed the data and reached the following consensus: 1) All women should engage in shared decision-making with their providers to decide when to start and how often to screen; 2) All women should have the opportunity to start screening mammography at age 40; 3) For women ages 45-55, we recommend annual screening mammograms; 4) For women ages 55 and over, we support both the transition from an annual to a biennial interval if this aligns more with patient's values and preferences, or continuation with annual screening; 5) All women should discuss with their providers when to stop screening mammograms. 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: Lia Transcribe Date/Time: Jan 07 2024 1:24P Dictated by : JENNIFER RETANA MD This examination was interpreted and the report reviewed and electronically signed by: JENNIFER RETANA MD on Jan 07 2024 2:09PM EST [facility] Radiology Study observation (narrative) [facility] DBT Breast - right diagnosti c for implantOrdered By: [facility] Provider on 01-07-2024 [facility] MARTINEZG W JOURDAN RTon 024 [facility] NATHAN W JOURDAN RT * * *Final Report* * * DATE OF EXAM: Jan 07 2024 2:06PM [facility] 0629 - [place] VENITA Tovar JOURDAN RT / PROCEDURE REASON: R92.8-Abnormal mammogram * * * * Physician Interpretation * * * * #[id number] - [facility] Tovar JOURDAN RT UNILATERAL RIGHT DIGITAL DIAGNOSTIC MAMMOGRAM TOMOSYNTHESIS WITH CAD: 01/07/2024 HISTORY: R92.8-Abnormal Mammogram / Call back/abnormal mamm: Right. RESULT: TECHNIQUE: The study was acquired using full field digital technology and interpreted from soft copy. Digital Breast Tomosynthesis (DBT) images were obtained and used to assist in the interpretation of this examination. Current study was also evaluated with a Computer Aided Detection (CAD). Comparison is made to exams dated: 11/26/2023 mammogram, 10/17/2022 mammogram, and 08/26/2021 mammogram - [facility]. There are scattered areas of fibroglandular density in the right breast. There are benign scattered skin calcifications in the right breast at 5 and 6 o'clock. No significant masses, calcifications, or other findings are seen in the breast. IMPRESSION: BENIGN FINDING There is no mammographic evidence of malignancy. A 1 year screening mammogram is recommended. Jennifer Retana M.D., mc/lia:01/07/2024 14:09:22 Automatic Mold Sander(s): RT Sandi(R)(M), [facility] Mammogram BI-RADS: 2 Benign finding Multiple national specialty organizations have released breast cancer screening guidelines for women at average risk for developing breast cancer - guidelines that are based on both evidence and opinion, yet differ on when to start and how often to screen for breast cancer. With representation from Breast Imaging, Internal Medicine, Women's Health, Family Medicine, and Medical/Surgical Oncology, the [facility] has carefully reviewed the data and reached the following consensus: 1) All women should engage in shared decision-making with their providers to decide when to start and how often to screen; 2) All women should have the opportunity to start screening mammography at age 40; 3) For women ages 45-55, we recommend annual screening mammograms; 4) For women ages 55 and over, we support both the transition from an annual to a biennial interval if this aligns more with patient's values and preferences, or continuation with annual screening; 5) All women should discuss with their providers when to stop screening mammograms. 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: Lia Transcribe Date/Time: Jan 07 2024 1:24P Dictated by : JENNIFER RETANA MD This examination was interpreted and the report reviewed and electronically signed by: JENNIFER RETANA MD on Jan 07 2024 2:09PM EST [id number] [facility] 12-04-2023 [facility] Office Visit ([id number] ) CRYSTAL THAKUR ([id number]) 1960 F [facility] Date Time Provider Department 12/04/23 2:15 PM WILMAR VIVAR [id number] During your visit today, we recorded the following information about you: Respiration Weight Height 16/minute 84.4 kg 1.702 m Wilmar Vivar MD 12/05/2023 12:32 PM Signed PAIN EVALUATION 11/27/2023 1445 12/04/2023 1401 Pain Level: 9 4 Pain Location: Shoulder-Left -- Description: Aching;Radiating;Shoot ing;Stiffness;Throbbin g -- Duration Amount of Time: 6 -- Duration Units: Months Months Frequency: Continuous Intermittent Intervention/Comfort measure: Medication;Reposition; Relaxation;Cold;Distra ctions;Exercise;Pillow support;Positioning;Schwab pport surface -- Comments: Has steadily gotten worse. Only mild relief with Motrin, Robaxin and CBD. P T made it worse. Cortisone injections only helped for a few days to weeks. Ice and shoulder support only helps minimally. -- Encounter Diagnosis ICD-10-CM 1. Biceps tendinitis of left upper extremity M75.22 Crystal Thakur returns to review MRI left shoulder. IMAGING: I personally reviewed the MRI of the left shoulder in the office today, and I am in agreement with the radiologist's interpretation with the following modifications: None PLAN: Crystal Thakur presents today with persistent anterior left shoulder pain with exam findings consistent with bicipital instability and tendinitis. Based on my evaluation today, I do not feel that nonsurgical interventions including physical therapy, activity modification, and medical management are likely to provide this patient with an acceptable level of improvement in functional use of the arm, nor significant pain relief. After thorough review of history, examination findings, and imaging, we discussed surgical intervention today which would be arthroscopy with biceps tenodesis. I described the procedure in detail as well as the expected healing time of 3-6 months and physical therapy regimen following surgery, likely for much of this time. Informed consent was discussed in detail and signed in the office today. Significant risks of surgery including those of general anesthesia, and those from surgery including infection, nerve injury, bleeding, procedure failure and possible need for repeat procedure were all discussed at the time of consent. No guarantees as to the outcome of surgery were given or implied. Surgery will be scheduled for the next available date. Wilmar Vivar MD Shoulder AND Elbow Surgeon Department of Orthopaedic Surgery [facility] Allergies As of Date: 12/04/2023 Noted Allergy Reaction CYMBALTA (DULOXETINE) 04/24/2007 14 - Other: See Comments Comments: Intolerance, elevated BP, pulse KEFLEX (CEPHALEXIN) 03/29/2021 8 - GI Upset Comments: Bloating and tears up stomach MONOSODIUM GLUTAMATE (MSG) 09/12/2006 14 - Other: See Comments Comments: Severe headache OXYCODONE 05/14/2020 14 - Other: See Comments Comments: Heart palpitations RABBIT DANDER 10/08/2018 12 - Shortness of Breath HUAN'S WORT 01/22/2007 14 - Other: See Comments Comments: Elevated BP ATORVASTATIN 11/09/2016 17 - Myalgia Comments: Muscle Aches CRESTOR (ROSUVASTATIN) 12/11/2019 17 - Myalgia GABAPENTIN 09/20/2017 14 - Other: See Comments Comments: Depression, suicidal thoughts NIACIN 01/22/2007 5 - Intolerance Comments: Facial numbness NIACINAMIDE 09/12/2006 14 - Other: See Comments Comments: Facial Numbness CATS 01/22/2007 12 - Shortness of Breath ASPARTAME 09/12/2006 14 - Other: See Comments Comments: Severe headache DOXYCYCLINE 01/22/2007 8 - GI Upset ERYTHROMYCIN 01/22/2007 8 - GI Upset GLUTAMIC ACID 08/20/2020 16 - Unknown Comments: Patient is not familiar with this product LATEX 09/12/2006 9 - Itching Comments: Redness SUCRALOSE 08/20/2020 16 - Unknown ZITHROMAX (AZITHROMYCIN) 01/14/2015 8 - GI Upset Comments: GI Date Reviewed: 10/30/2023 Reviewed by: Mira Edward LPN - Fully Assessed Reason for Visit: Follow Up [171] Primary Visit Diagnosis:Biceps tendinitis of left upper extremity [M75.22] Prescriptions as of 12/05/2023 - FREESTYLE HUGH 14 DAY SENSOR kit apply NEW SENSOR EVERY 14 DAYS TO UPPER ARM - hydroCHLOROthiazide 25 mg tablet Take 1 tablet by mouth once daily. - lisinopril (ZESTRIL) 20 mg tablet Take 2 tablets by mouth once daily. - coenzyme Q10 (CO Q-10) 100 mg cap capsule Take 2 capsules by mouth once daily. - nadolol (CORGARD) 40 mg tablet Take 1 tablet by mouth two times a day. - amLODIPine (NORVASC) 10 mg tablet Take 1 tablet by mouth once daily. - methocarbamol (ROBAXIN) 500 mg tablet Take 2 tablets by mouth three times a day. As needed for pain - VITAMIN K2 ORAL Take 100 mcg by mouth once daily. - ondanset (more content not included)... Normal [facility] CNOVon 10-30-2023 [facility] Office Visit (AGHWW1 ) CRYSTAL THAKUR ([id number]) 1960 F [place] Date Time Provider Department 10/30/23 2:45 PM [facility] During your visit today, we recorded the following information about you: Respiration Weight Height 16/minute 84.4 kg 1.702 m Wilmar Vivar MD 10/31/2023 10:44 AM Signed PAIN EVALUATION 10/24/2023 1205 Pain Level: 8 Pain Location: Shoulder-Left Description: Aching;Radiating;Shoot ing;Throbbing Duration Amount of Time: 3 Duration Units: Months Frequency: Intermittent Intervention/Comfort measure: Medication;Reposition; Relaxation;Cold;Exerci se;Heat;Pillow support;Positioning;Sp linting Comments: Pain is getting worse. Runs from my neck, back of shoulder around to upper arm. Encounter Diagnosis ICD-10-CM 1. Biceps tendonitis on left M75.22 MRI SHOULDER WO IVCON LEFT 2. Chronic left shoulder pain M25.512 MRI SHOULDER WO IVCON LEFT G89.29 Crystal Thakur presents today for evaluation of her left shoulder. She previously underwent surgery on her right shoulder performed by me in 2020 and is doing well with this. She had been seeing Dr. Soriano for management of left shoulder pain but unfortunately injections have stopped working for her. She presents today for evaluation of possible surgical options. I examined her left shoulder today. She has pain with overhead and rotational testing of the left shoulder. Range of motion is relatively well-maintained with 160 degrees of active elevation and side abduction. She has 60 degrees of internal and external rotation. There is pain but no weakness with Jacki maneuver. Atlantic's maneuver is very uncomfortable for her and there is giving way due to pain. Belly press test is strong. No external rotation weakness. I reviewed previous imaging of her shoulder from 2020 when she underwent an outside MRI. This shows no full-thickness tearing of her rotator cuff. There was concern for bicipital tendinitis at the time. PLAN: Today we discussed that she is having worsening pain in the left shoulder not responsive to conservative treatment measures. I recommended that she undergo repeat MRI to update this and we will evaluate this together and plan for likely surgical intervention based on the findings. Wilmar Vivar MD Shoulder AND Elbow Surgeon Department of Orthopaedic Surgery [facility] Referring Provider: SELF [200] Allergies As of Date: 10/30/2023 Noted Allergy Reaction CYMBALTA (DULOXETINE) 04/24/2007 14 - Other: See Comments Comments: Intolerance, elevated BP, pulse KEFLEX (CEPHALEXIN) 03/29/2021 8 - GI Upset Comments: Bloating and tears up stomach MONOSODIUM GLUTAMATE (MSG) 09/12/2006 14 - Other: See Comments Comments: Severe headache OXYCODONE 05/14/2020 14 - Other: See Comments Comments: Heart palpitations RABBIT DANDER 10/08/2018 12 - Shortness of Breath HUAN'S WORT 01/22/2007 14 - Other: See Comments Comments: Elevated BP ATORVASTATIN 11/09/2016 17 - Myalgia Comments: Muscle Aches CRESTOR (ROSUVASTATIN) 12/11/2019 17 - Myalgia GABAPENTIN 09/20/2017 14 - Other: See Comments Comments: Depression, suicidal thoughts NIACIN 01/22/2007 5 - Intolerance Comments: Facial numbness NIACINAMIDE 09/12/2006 14 - Other: See Comments Comments: Facial Numbness CATS 01/22/2007 12 - Shortness of Breath ASPARTAME 09/12/2006 14 - Other: See Comments Comments: Severe headache DOXYCYCLINE 01/22/2007 8 - GI Upset ERYTHROMYCIN 01/22/2007 8 - GI Upset GLUTAMIC ACID 08/20/2020 16 - Unknown Comments: Patient is not familiar with this product LATEX 09/12/2006 9 - Itching Comments: Redness SUCRALOSE 08/20/2020 16 - Unknown ZITHROMAX (AZITHROMYCIN) 01/14/2015 8 - GI Upset Comments: GI Date Reviewed: 10/30/2023 Reviewed by: Mira Edward LPN - Fully Assessed Reason for Visit: Established Patient [175] Primary Visit Diagnosis:Biceps tendonitis on left [M75.22] Other Visit Diagnosis:Chronic left shoulder pain [M25.512, G89.29] Order(s):MRI SHOULDER WO IVCON LEFT [[id number]] Order #: [id number] FUTURE Prescriptions as of 10/31/2023 - lisinopril (ZESTRIL) 20 mg tablet Take 2 tablets by mouth once daily. - coenzyme Q10 (CO Q-10) 100 mg cap capsule Take 2 capsules by mouth once daily. - nadolol (CORGARD) 40 mg tablet Take 1 tablet by mouth two times a day. - amLODIPine (NORVASC) 10 mg tablet Take 1 tablet by mouth once daily. - methocarbamol (ROBAXIN) 500 mg tablet Take 2 tablets by mouth three times a day. As needed for pain - VITAMIN K2 ORAL Take 100 mcg by mouth once daily. - ondansetron (ZOFRAN) 4 mg tablet Take 1 tablet by mouth every 8 hours as needed. - FREESTYLE HUGH 14 DAY SENSOR kit apply NEW SENSOR EVERY 14 DAYS TO UPPER ARM - nortriptyline (PAMELOR) 25 mg capsule Take 1 (more content not included)... Normal [facility] US SHOULDER-INJECTION LT (PO C) DOYLE USE ONLYon 04-23-2023 [facility] XR SHOULDER GENERAL 3V OR MO RE AP/TRUE AP/OTHER LEFTon 10-30-2022 [facility] KYLAH SCREENINGon 10-17-2022 [facility] ANES POSTPROC EVALon 023 ANES POSTPROC EVAL HNO ID: [id number] Author: Ori Martinez MD Service: Anesthesiology Author Type: Anesthesiologist Type: Anesthesia Postprocedure Evaluation Filed: 08/30/2022 9:12 PM Note Text: POST ANESTHESIA EVALUATION NOTE : 1960 Procedure Summary Date: 08/30/22 Room / Location: OR08 / [facility] OR Anesthesia Start: 1515 Anesthesia Stop: 1910 Procedure: LAPAROSCOPIC HERNIORRHAPHY, INGUINAL INITIAL BILATERAL (Bilateral: Groin) Diagnosis: Bilateral inguinal hernia without obstruction or gangrene, recurrence not specified (Bilateral inguinal hernia without obstruction or gangrene, recurrence not specified [K40.20]) Surgeons: Kris Jaime MD Responsible Provider: Ori Martinez MD Anesthesia Type: general ASA Status: 3 Anesthesia Type: general Airway Type: ETT Last Vitals Vitals Value Taken Time BP 115/83 08/30/222044 Temp 36.4 ?C (97.5 ?F) 08/30/222029 Pulse 60 08/30/222046 Resp 14 08/30/222046 SpO2 94 % 08/30/222046 Vitals shown include unvalidated device data. Post Anesthesia Patient Status Patient Evaluation: PACU. PACU/ICU Patient Condition: stable. Anticipated Disposition: phase 2 then home. Neurological Status: aware and responsive. Pulmonary Status: breathing comfortably on room air Airway Control: returned to baseline unsupported. Cardiovascular Status: stable. Pain Management: clinically adequate Postoperative Hydration: acceptable. Intraoperative Events: no significant anesthesia events Recommendation: continue current plan of care and further care per PACU/ICU/floor team. Anesthesia Observations No Documentation SIGNATURE: Ori Martinez MD PATIENT NAME: Crystal Thakur DATE: August 30, 2022 TIME: 9:11 PM CSN: [id number] [facility] ANES PRE-OPon 08-30-2022 ANES PRE-OP HNO ID: [id number] Author: Reed Hook MD Service: Anesthesiology Author Type: Anesthesiologist Type: Anesthesia Preprocedure Evaluation Filed: 08/30/2022 11:51 AM Note Text: ANESTHESIOLOGY DAY OF SURGERY NOTE : 1960 Procedure Information Date/Time: 08/30/22 140 Procedure: LAPAROSCOPIC HERNIORRHAPHY, INGUINAL INITIAL BILATERAL (Bilateral: Groin) - w/mesh Location: [facility] OR10 / [facility] OR Surgeons: Kris Jaime MD Estimated body mass index is 30.07 kg/m? as calculated from the following: Height as of 08/16/22: 170.2 cm (5' 7"). Weight as of 08/16/22: 87.1 kg (192 lb). Most recent hematocrit and potassium results: Hematocrit 37.5 06/20/2022 Potassium 4.0 06/20/2022 Relevant Problems CARDIO (+) Aortic atherosclerosis (HCC) (+) Fibromuscular dysplasia (HCC) (+) HYPERTENSION ENDO (+) Controlled type 2 diabetes mellitus without complication, without long-term current use of insulin (HCC) GI (+) Esophageal reflux -RENAL (+) Left renal stone Other (+) Impingement syndrome of left shoulder (+) Impingement syndrome of right shoulder I - PHYSICAL EVALUATION AIRWAY Patient intubated: No. Tracheostomy tube not present Mallampati: II. TM distance: >3 FB. Neck ROM: full ROM without neurological symptoms. Mouth opening: adequate. Short neck: no. Thick neck: no DENTAL Dental findings: edentulous. Dentures, upper: complete. Dentures, lower: complete. Additional exam findings: yes. CARDIOVASCULAR Normal cardiovascular observations. Rhythm: regular Rate: normal PULMONARY Normal pulmonary observations. Breath sounds clear to auscultation. II - ANESTHESIA PLAN ASA Score: 3 Anesthetic Plan: general Airway type: ETT The patient is not a current smoker. NPO Status: adequate Anesthetic plan additional comments: Symptoms of Sleep Apnea: Denies Previous Anesthesia: No history of adverse event Family history of anesthetic problems: None Functional Capacity Assessment:Denies chest pain and SOB with exertion. Denies change in functional capacity. History of GERD: Yes- Well controlled with no positional symptoms Most recent lab results: HGB 12.6 06/20/2022 Hematocrit 37.5 06/20/2022 Potassium 4.0 06/20/2022 Platelet Count 243 06/20/2022 PT Sec 10.6 09/19/2021 INR 1.0 09/19/2021 Creatinine 0.78 06/20/2022 . Beta Narinder Monitoring Plan Monitoring plan: Standard ASA. Post Procedure Analgesic Plan Postoperative analgesic plan: parenteral or oral opioids and multimodal analgesia. Informed Consent Anesthetic risks, benefits, alternatives, personnel and consent discussed: yes. Patient / Responsible Alliance Party agrees to proceed: yes Patient / Surrogate agrees to blood products: yes DNR status not reviewed with patient and/or family prior to surgery. Significant changes in the patient condition since the History and Physical, not otherwise documented in primary service progress note: no. Potential Anesthesia issues that may suggest increased risk of complications or contraindication to planned procedure: none. Vitals Value Taken Time BP 144/70 08/30/22 1116 Pulse Resp 16 08/30/22 1116 Temp 36.4 ?C (97.5 ?F) 08/30/22 1116 SpO2 100 % 08/30/22 1116 Facility-Administered Medications as of 08/30/2022 Medication Dose Route Frequency - lidocaine (PF) 10 mg/mL (1 %) 1-2 mg injection (XYLOCAINE) 0.1-0.2 mL INTRADERMAL PRN - lactated ringers iv infusion 5-30 mL/hr INTRAVENOUS CONTINUOUS - NaCl 0.9% iv flush bag 20 mL INTRAVENOUS PRN - heparin 5,000 Units injection 5,000 Units SUBCUTANEOUS ONCE - clindamycin iv piggyback 900 mg in D5W 50 mL (CLEOCIN) 900 mg INTRAVENOUS Pre-Op Once - [COMPLETED] acetaminophen 1,000 mg tab(s) (TYLENOL) 1,000 mg ORAL ONCE - [COMPLETED] promethazine 12.5 mg tab(s) (PHENERGAN) 12.5 mg ORAL NOW - lactated ringers iv infusion 30 mL/hr INTRAVENOUS CONTINUOUS Outpatient Medications as of 08/30/2022 Medication Sig - nadolol (CORGARD) 40 mg tablet Take 1 tablet by mouth twice daily. - hydroCHLOROthiazide (HYDRODIURIL, ESIDRIX) 25 mg tablet Take 1 tablet by mouth once daily. - nortriptyline (PAMELOR) 25 mg capsule Take 1 capsule by mouth daily at bedtime. - lisinopril (ZESTRIL, PRINIVIL) 20 mg tablet Take 2 tablets by mouth once daily. - metFORMIN ER (GLUCOPHAGE XR) 500 mg 24 hr tablet Take 3 tablets by mouth daily with breakfast. - coenzyme Q10 (CO Q-10) 100 mg cap capsule Take 2 capsules by mouth once daily. - lactobacillus acidophilus 100 mg (1 billion cell) cap(s) Take 1 capsule by mouth once daily. - ursodiol (ACTIGALL) 300 mg capsule Take 300 mg by mouth twice daily. - amLODIPine (NORVASC) 10 mg tablet Take 1 tablet by mouth once daily. - ibuprofen (MOTRIN) 800 mg tablet Take 1 tablet by mouth every 6 hours as needed for pain. - ondansetron (ZOFRAN) 4 mg tablet Take 1 tablet by mouth every 8 hours as needed. - calcium carbonate/vitamin D3 (CALCIUM WITH VITAMIN D ORAL) Take 1 (more content not included)... [facility] NURSING PROGon 08-30-2022 NURSING PROG HNO ID: [id number] Author: Fany Sommer RN Service: Nursing Author Type: Registered Nurse Type: Nursing Progress Note Filed: 08/30/2022 8:23 PM Note Text: PATIENT EDUCATION TOPIC: PROCEDURE / SURGERY: Post-op Teaching: Med Administration, Symptom Management, and Wound Care PATIENT NAME: Crystal Thakur PATIENT LOCATION: [facility] OR POOL/[facility] OR POOL READINESS TO LEARN COGNITIVE ABILITY: Alert and oriented MOTIVATION TO LEARN: Interested FAMILY SUPPORT: Unable to assess - Family not present INSTRUCTION PROVIDED TO: Patient PATIENT LEARNS BEST BY: Individual Instruction FACTORS AFFECTING LEARNING: None PHYSICAL LIMITATIONS AFFECTING LEARNING: None LEARNING RESPONSE DIAGNOSIS: ADULT: Well Adult PATIENT/FAMILY RESPONSE: Verbalizes understanding of: POST-OPERATIVE INSTRUCTIONS-Correct actions to take to reduce postoperative complications METHOD OF INSTRUCTION: Individual instruction FOLLOW-UP PLAN: Complete - No need for follow-up INSTRUCTIONAL AIDS USED: NA SUPPLEMENTAL MATERIAL PROVIDED TO PATIENT: None REFERRAL (RECOMMENDATION): None Electronically Signed By: Fany Sommer [facility] OPERATIVE NOon 08-30-2022 OPERATIVE NO HNO ID: [id number] Author: Kris Jaime MD Service: General Surgery Author Type: Physician Type: Operative Report Filed: 08/30/2022 7:18 PM Note Text: LOG ID: [id number] Surgery/Procedure Date: 08/30/2022 Incision/Procedure Start Time: 3:56 PM Incision Close/Procedure End Time: 6:56 PM Surgeon(s)/Procedurali st(s) and Furniture Upholsterer(s): Surgeon(s) and Role: * Kris Jaime MD - Primary * Shantel Gamez MD - Resident - Assisting No Additional Staff Procedure(s): Laparoscopic bilateral inguinal hernia repair with mesh Indication: Crystal Thakur is a 62 year old female with a history of DM, diverticulosis, HTN, who presents with R>L bilateral reducible inguinal hernias. She also has a history of laparoscopic umbilical hernia repair with a 10 cm round Gortex DualMesh. We will proceed with a laparoscopic TEP bilateral inguinal hernia repair as we should be able to get into the retrorectus space just beneath the caudal border of the IPOM mesh/tacks. The risks, benefits, and alternatives to laparoscopic inguinal hernia repair were discussed with the patient including the risk of bleeding, infection, damage to the vas deferens or spermatic vessels, nerve injury, chronic groin pain, and recurrence. All patient questions were answered to their satisfaction. Written consent was obtained and can be found under the Consent tab in Epic. Anesthesia: General Procedure Details: A safety huddle was performed in the preoperative area with the patient, anesthesia, OR team, and myself present. The patient's name, date of , and operation were confirmed as well as SCD use and the administration of IV antibiotics and subcutaneous heparin prior to incision. The patient was then taken to the operating room and placed in supine position with both arms tucked and appropriately padded. General endotracheal anesthesia was achieved. Hair in the surgical field was clipped and the patient was prepped with chloraprep and draped in a sterile fashion. An audible time out was performed prior to incision. A transverse incision was made over the left rectus at the level of the umbilicus using an 11-blade. Dissection was carried out bluntly to the anterior abdominal wall so as to be over the anterior sheath and left rectus muscle. A transverse incision was made in the anterior rectus sheath and this was dilated with a Tatyana clamp. An S-retractor was slipped through the anterior sheath and used to reflect the rectus muscle fibers laterally revealing the posterior sheath. The retrorectus space was gently dilated with a Tatyana clamp. Next, the dissecting balloon was introduced into the retrorectus space and passed to the level of the pubis. A 10 mm, 0 degree scope was introduced into the trocar and the dissecting balloon was inflated under direct visualization. We were able to visualized the peritoneum dissect off the anterior abdominal wall and bilateral epigastrics remain up. When the balloon was not making any further progress, we released the pressure from the dissecting balloon, removed the dissecting balloon, connected our insufflation to 15 mm Hg, inflated the trocar internal balloon, and pulled this balloon back so that it was snugly against the rectus muscle and allowed for adequate visualization of the space of Retzius. Next, two 5 mm midline trocars were placed under direct visualization after infiltration of the skin and muscle with 0.25% Bupivacaine. The cephalad trocar was just caudal to our umbilical balloon and the caudal trocar ~2 cm caudal to the initial 5 mm trocar. The patient was then placed in slight Trendelenburg. I began the operation by obtaining hemostasis using judicious electrocautery. Next, using two bullet graspers, I began do develop the space of Retzius, beginning medially 1-2 cm beyond the pubis, by the bladder from the pubis and then working along pubis laterally to the right toward the external iliacs and femoral canal while extending the dissection 2-3 cm below coopers ligament. No direct defect defect was identified and no femoral defect was identified. With the medial portion of our dissection done, I turned my attention to the lateral dissection. The filmy attachments between the peritoneum and abdominal wall were disrupted bluntly, the two. We were able to identify the peritoneum extending up toward and into the internal ring, lateral to the vessels, consistent with an indirect inguinal hernia. The peritoneum was grasped with the bullet and retracted medially. I then began the peritoneum from the surrounding tissue until we were able to fully circumscribe the hernia sac. With the sac dissected free it was grasped and reduced from the indirect space. With the hernia sac reduced, the peritoneal flap was matured. The Peritoneum was dissected free along the psoas and external iliacs as well as laterally from the iliopubic tract. (more content not included)... Normal [facility] 08-29-2022 [facility] Telephone ([facility]) CRYSTAL THAKUR ([id number]) 1960 F [facility] Date Time Provider Department 08/29/22 NATHAN MCCOLLUM [facility]LAKISHA During your visit today, we recorded the following information about you: Nathan Hernandez MD 08/29/2022 2:49 PM Signed RB# [id number]: Vascular events in patients undergoing same-day nonCardiac surgery - VALIANCE PI: Torsten Medina MD, FLORENTINO, FASA. Outcomes Research Department. Anesthesia [place]. [facility]. This is a research study note. Patient assessments recorded here should not guide either clinical care or clinical decision-making. I spoke with Crystal Thakur regarding eligibility for the VALIANCE study. The background, rationale, hypotheses, study related procedures, known risks, potential benefits, and alternatives to research participation were discussed at length per the study phone script. The patient will consider participating in the study and would like to read the study related materials to know more details about the study. I have confirmed that the e-mail address on file is the current one and is okay to receive study related materials there. We will send the informed consent today. Nathan Hernandez MD Research Fellow Outcomes Research [facility] Allergies As of Date: 08/29/2022 Noted Allergy Reaction CYMBALTA (DULOXETINE) 04/24/2007 14 - Other: See Comments Comments: Intolerance, elevated BP, pulse KEFLEX (CEPHALEXIN) 03/29/2021 8 - GI Upset Comments: Bloating and tears up stomach MONOSODIUM GLUTAMATE (MSG) 09/12/2006 14 - Other: See Comments Comments: Severe headache OXYCODONE 05/14/2020 14 - Other: See Comments Comments: Heart palpitations RABBIT DANDER 10/08/2018 12 - Shortness of Breath splenda [Other] 09/12/2006 14 - Other: See Comments Comments: Severe headaches HUAN'S WORT 01/22/2007 14 - Other: See Comments Comments: Elevated BP ATORVASTATIN 11/09/2016 17 - Myalgia Comments: Muscle Aches CRESTOR (ROSUVASTATIN) 12/11/2019 17 - Myalgia GABAPENTIN 09/20/2017 14 - Other: See Comments Comments: Depression, suicidal thoughts NIACIN 01/22/2007 5 - Intolerance Comments: Facial numbness NIACINAMIDE 09/12/2006 14 - Other: See Comments Comments: Facial Numbness CATS 01/22/2007 12 - Shortness of Breath ASPARTAME 09/12/2006 14 - Other: See Comments Comments: Severe headache DOXYCYCLINE 01/22/2007 8 - GI Upset ERYTHROMYCIN 01/22/2007 8 - GI Upset GLUTAMIC ACID 08/20/2020 16 - Unknown Comments: Patient is not familiar with this product LATEX 09/12/2006 9 - Itching Comments: Redness SUCRALOSE 08/20/2020 16 - Unknown ZITHROMAX (AZITHROMYCIN) 01/14/2015 8 - GI Upset Comments: GI Date Reviewed: 08/16/2022 Reviewed by: Cherie Eddy PA-C - Fully Assessed Reason for Visit: Research [[id number]] Prescriptions as of 08/29/2022 - omeprazole (PRILOSEC) 20 mg capsule Take 1 capsule by mouth daily before breakfast. 1/2 hr before meal. - FREESTYLE HUGH 14 DAY SENSOR kit apply NEW SENSOR EVERY 14 DAYS TO UPPER ARM - methocarbamol (ROBAXIN) 500 mg tablet Take 2 tablets by mouth three times daily. As needed for pain - nadolol (CORGARD) 40 mg tablet Take 1 tablet by mouth twice daily. - hydroCHLOROthiazide (HYDRODIURIL, ESIDRIX) 25 mg tablet Take 1 tablet by mouth once daily. - nortriptyline (PAMELOR) 25 mg capsule Take 1 capsule by mouth daily at bedtime. - amLODIPine (NORVASC) 10 mg tablet Take 1 tablet by mouth once daily. - ibuprofen (MOTRIN) 800 mg tablet Take 1 tablet by mouth every 6 hours as needed for pain. - lisinopril (ZESTRIL, PRINIVIL) 20 mg tablet Take 2 tablets by mouth once daily. - metFORMIN ER (GLUCOPHAGE XR) 500 mg 24 hr tablet Take 3 tablets by mouth daily with breakfast. - coenzyme Q10 (CO Q-10) 100 mg cap capsule Take 2 capsules by mouth once daily. - ondansetron (ZOFRAN) 4 mg tablet Take 1 tablet by mouth every 8 hours as needed. - lactobacillus acidophilus 100 mg (1 billion cell) cap(s) Take 1 capsule by mouth once daily. - calcium carbonate/vitamin D3 (CALCIUM WITH VITAMIN D ORAL) Take 1 tablet by mouth twice daily. 600 mg calcium with 1000mg vitamin D3 - biotin 1 mg cap Take by mouth. - aspirin, enteric coated (ASPIR-LOW) 81 mg EC tablet Take 1 tablet by mouth once daily. - ursodiol (ACTIGALL) 300 mg capsule Take 300 mg by mouth twice daily. - albuterol HFA (PROVENTIL HFA, VENTOLIN HFA) 90 mcg/actuation inhaler Inhale 2 Puffs as instructed every 4 hours as needed. - blood sugar diagnostic (TRUE METRIX GLUCOSE TEST STRIP) test strip Use 4-6 times daily to check blood sugar. Dx:E11.9 insulin:No - lancets (FREESTYLE LANCETS) 28 gauge misc Test blood sugar(s) one times daily. Dx: Type 2 DM - Controlled E11.9 Insulin: No - loratadine (CLARITIN) 10 mg ORAL tablet Take 1 tablet by mouth once daily. Meds Comments as of 03/29 (more content not included)... Normal [facility] DXA-AXIAL SKELETONon 023 LOWEST T-SCORE -2.3 [facility] No Panel Informationon 01-23 IMPRESSION: No radiographic evidence of acute osseous injury. 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: PSCB Transcribe Date/Time: Jan 23 2022 11:58A Dictated by : RAMONE VILLASEÑOR MD This examination was interpreted and the report reviewed and electronically signed by: RAMONE VILLASEÑOR MD on Jan 23 2022 12:00PM EST [email or web address]_NOT_[email or web address] E_DIVISION OF RADIOLOGY No Panel InformationOrdered By: Ccf Provider on 01-23-2022 [facility] XR Ankle - right AP and Late ral and obliqueon 01-23-2022 * * *Final Report* * * DATE OF EXAM: Jan 20 2022 9:26AM WOX 5297 - XR ANKLE 3V AP/LAT/OBL RT / PROCEDURE REASON: Acute right ankle pain * * * * Physician Interpretation * * * * CLINICAL INDICATION: Injury with pain TECHNIQUE: AP and lateral radiographs of the right tibia/fibula. AP, oblique and lateral radiographs of the right ankle. COMPARISON: None FINDINGS: Right tibia/fibula: No acute fracture or dislocation identified. Postsurgical changes from total right knee replacement partially visualized. Right ankle: No acute fracture or dislocation identified. Dorsal and plantar calcaneal enthesophytes. Comparison imaging of the left ankle demonstrates well-corticated soft tissue calcifications within the medial distal calf. [email or web address]_NOT_US E_DIVISION OF RADIOLOGY Provider, [facility] - 01/23/2022 * * *Final Report* * * DATE OF EXAM: Jan 20 2022 9:26AM WOX 5297 - XR ANKLE 3V AP/LAT/OBL RT / PROCEDURE REASON: Acute right ankle pain * * * * Physician Interpretation * * * * CLINICAL INDICATION: Injury with pain TECHNIQUE: AP and lateral radiographs of the right tibia/fibula. AP, oblique and lateral radiographs of the right ankle. COMPARISON: None FINDINGS: Right tibia/fibula: No acute fracture or dislocation identified. Postsurgical changes from total right knee replacement partially visualized. Right ankle: No acute fracture or dislocation identified. Dorsal and plantar calcaneal enthesophytes. Comparison imaging of the left ankle demonstrates well-corticated soft tissue calcifications within the medial distal calf. IMPRESSION IMPRESSION: No radiographic evidence of acute osseous injury. 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: PSCB Transcribe Date/Time: Jan 23 2022 11:58A Dictated by : RAMONE VILLASEÑOR MD This examination was interpreted and the report reviewed and electronically signed by: RAMONE VILLASEÑOR MD on Jan 23 2022 12:00PM EST [facility] XR Tibia and Fibula - right AP and Lateralon 01-23-2022 * * *Final Report* * * DATE OF EXAM: Jan 20 2022 9:26AM WOX 5266 - XR TIBIA FIBULA 2V AP/LAT RT / PROCEDURE REASON: Puncture wound * * * * Physician Interpretation * * * * CLINICAL INDICATION: Injury with pain TECHNIQUE: AP and lateral radiographs of the right tibia/fibula. AP, oblique and lateral radiographs of the right ankle. COMPARISON: None FINDINGS: Right tibia/fibula: No acute fracture or dislocation identified. Postsurgical changes from total right knee replacement partially visualized. Right ankle: No acute fracture or dislocation identified. Dorsal and plantar calcaneal enthesophytes. Comparison imaging of the left ankle demonstrates well-corticated soft tissue calcifications within the medial distal calf. ZZZ_DO_NOT_US E_DIVISION OF RADIOLOGY Provider, [facility] - 01/23/2022 * * *Final Report* * * DATE OF EXAM: Jan 20 2022 9:26AM WOX 5266 - XR TIBIA FIBULA 2V AP/LAT RT / PROCEDURE REASON: Puncture wound * * * * Physician Interpretation * * * * CLINICAL INDICATION: Injury with pain TECHNIQUE: AP and lateral radiographs of the right tibia/fibula. AP, oblique and lateral radiographs of the right ankle. COMPARISON: None FINDINGS: Right tibia/fibula: No acute fracture or dislocation identified. Postsurgical changes from total right knee replacement partially visualized. Right ankle: No acute fracture or dislocation identified. Dorsal and plantar calcaneal enthesophytes. Comparison imaging of the left ankle demonstrates well-corticated soft tissue calcifications within the medial distal calf. IMPRESSION IMPRESSION: No radiographic evidence of acute osseous injury. 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[facility] Transcribe Date/Time: Jan 23 2022 11:58A Dictated by : RAMONE VILLASEÑOR MD This examination was interpreted and the report reviewed and electronically signed by: RAMONE VILLASEÑOR MD on Jan 23 2022 12:00PM EST [facility] No Panel Informationon 01-20 Radiology Study observation (narrative) [facility] No Panel Informationon 10-21 [facility] Absolute lymphocyte counton 09-15-2021 Lymphocytes Auto (Unsp spec) [#/Vol] 2.01 10*3/uL 0.83-4.51 [facility] Work Phone: Basophil percentageon 2021 Basophils/100 WBC (Bld) 0.4 % 0-1 [facility] Work Phone: Bilirubin [Mass/Vol] 0.30 mg/dL 0.20-1.00 [facility] Work Phone: Comment on above: For patients on eltr ombopag therapy, use of Dimension [place] TBIL is not recommended. Chloride [Moles/Vol] 104 mmol/L 98-107 [facility] Work Phone: Eosinophils/100 WBC (Bld) 0.3 % 0-5 [facility] Work Phone: Glucose [Mass/Vol] 138 mg/dL 74-106 [facility] Work Phone: Comment on above: Fasting Glucose resu lt greater than or equal to 126 mg/dL suggests DIABETES MELLITUS per A.D.A. criteria. Neutrophils (Bld) [#/Vol] 8.6 10*3/uL 2.0-7.7 [facility] Work Phone: Neutrophils/100 WBC (Bld) 75.3 % 47-70 [facility] Work Phone: Potassium [Moles/Vol] 4.3 mmol/L 3.5-5.1 [facility] Work Phone: Protein [Mass/Vol] 7.7 g/dL 6.4-8.2 [facility] Work Phone: Sodium [Moles/Vol] 137 mmol/L 136-145 [facility] Work Phone: WBC (Bld) [#/Vol] 11.5 10*3/uL 4.4-11.0 [facility] Work Phone: Blood erythrocytes count (nu mber/volume)on 09-15-2021 RBC (Bld) [#/Vol] 4.98 10*6/uL 4.2-5.4 [facility] Work Phone: Blood hemoglobin measurement (mass/volume)on 09-15-2021 Hemoglobin (Bld) [Mass/Vol] 14.0 g/dL 12.0-15.0 [facility] Work Phone: Blood lymphocytes/100 leukoc yteson 09-15-2021 Lymphocytes/100 WBC (Bld) 17.5 % 19-41 [facility] Work Phone: Blood monocytes/100 leukocyt eson 09-15-2021 Monocytes/100 WBC (Bld) 5.3 % 0-10 [facility] Work Phone: Blood platelet mean volumeon 09-15-2021 Platelet mean volume (Bld) [Entitic vol] 11.1 fL 6.2-12.0 [facility] Work Phone: Determination of erythrocyte mean corpuscular volume (MCV)on 09-15-2021 MCV (RBC) [Entitic vol] 87.1 fL 81-99 [facility] Work Phone: Hematocrit Auto (Bld) [Volum e fraction]on 09-15-2021 Hematocrit (Bld) [Volume fraction] 43.4 % 37-47 [facility] Work Phone: Laboratory - Chemistry and C hemistry - challengeon 09-15-2021 ALP [Catalytic activity/Vol] 45 U/L 45-117 [facility] Work Phone: ALT [Catalytic activity/Vol] 24 U/L 13-56 [facility] Work Phone: CO2 [Moles/Vol] 27.0 mmol/L 21.0-32.0 [facility] Work Phone: Globulin (S) [Mass/Vol] 3.8 g/dL 2.2-4.2 [facility] Work Phone: Urea nitrogen/Creatinine [Mass ratio] 20.5 mg/mg 10-20 [facility] Work Phone: [phone] Laboratory - Hematology and Cell countson 09-15-2021 Erythrocyte distribution width (RBC) [Entitic vol] 52.7 fL 35.1-43.9 [facility] Work Phone: Erythrocyte distribution width (RBC) [Ratio] 16.8 % 11.6-14.6 [facility] Work Phone: Immature granulocytes/100 WBC (Bld) 1.200 % 0.0-0.9 [facility] Work Phone: Comment on above: IG% - Immature Granu locytes (promyelocytes, myelocytes and metamyelocytes) > 1% indicates that a LEFT SHIFT is Present. MCH (RBC) [Entitic mass] 28.1 pg 27.0-32.0 [facility] Work Phone: Nucleated RBC/100 WBC (Bld) [Ratio] 0 % 0-5 [facility] Work Phone: MCHC Auto (RBC) [Mass/Vol]on 09-15-2021 MCHC (RBC) [Mass/Vol] 32.3 g/dL 32-36 [facility] Work Phone: No Panel Informationon 09-15 Estimated GFR (MDRD) Amer 64 mL/min >60 [facility] Work Phone: Comment on above: GFR Calc Estimated GFR (MDRD) Non-Af Amer 53 mL/min >60 [facility] Work Phone: Comment on above: Non- GFR Calc Platelets bldon 09-15-2021 Platelets (Bld) [#/Vol] 282 10*3/uL 150-450 [facility] Work Phone: Serum or plasma albumin vidal urement (mass/volume)on 09-15-2021 Albumin [Mass/Vol] 3.9 g/dL 3.2-5.0 [facility] Work Phone: Serum or plasma albumin/glob ulin mass ratioon 09-15-2021 Albumin/Globulin [Mass ratio] 1.0 {ratio} 0.9-2.4 [facility] Work Phone: Serum or plasma calcium vidal urement (mass/volume)on 09-15-2021 Calcium [Mass/Vol] 9.5 mg/dL 8.5-10.1 [facility] Work Phone: Serum or plasma creatinine m easurement (mass/volume)on 09-15-2021 Creatinine [Mass/Vol] 1.12 mg/dL 0.55-1.02 [facility] Work Phone: Comment on above: The validity of the calculated GFR & GFRAA in patients over 70 years has not been determined. Clinical correlation is essential. Serum or plasma urea nitroge n measurement (mass/volume)on 09-15-2021 Urea nitrogen [Mass/Vol] 23 mg/dL 7-18 [facility] Work Phone: Thin prep Papanicolaou smear with manual screeningon 09-15-2021 Thin prep Papanicolaou smear with manual screening 12 U/L 15-37 [facility] Work Phone: Thin prep Papanicolaou smear with manual screening 6 5-15 [facility] Work Phone: XR Lumbar spine 3 Viewson IMPRESSION: Chronic degenerative change as detailed in report. 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: ROXY Transcribe Date/Time: Jun 10 2020 2:39P Dictated by : ROZ COLE MD This examination was interpreted and the report reviewed and electronically signed by: ROZ COLE MD on Jun 10 2020 2:42PM [facility] DIVISION OF RADIOLOGY * * *Final Report* * * DATE OF EXAM: Jun 10 2020 11:11AM WOX 5228 - XR LUMBAR 3V AP/LAT/L5-S1 / PROCEDURE REASON: Low back pain, unspecified back pain laterality, unspecified chronicity, unspeci * * * * Physician Interpretation * * * * EXAMINATION: XR LUMBAR 3V AP/LAT/L5-S1 HISTORY: pt states pain for 6 months all across the lower lumbar and lateral hips. no inj Low back pain, unspecified back pain laterality, unspecified whether sciatica present. TECHNIQUE: XR LUMBAR 3V AP/LAT/L5-S1 Laterality: NOT APPLICABLE Number of different views (projections): 3 M: XB_1 COMPARISON: There are no prior relevant examinations available for comparison. RESULT: Counting reference: Lumbosacral junction. For the purposes of this report, L5-S1 is considered the last lumbar-type disc space and L4-5 is considered the level of the iliac crest. 3 Views of the lumbosacral spine with AP, lateral and cone-down radiographs demonstrate multilevel degenerative change with vertebral body osteophytosis. There is partial lumbarization of S1. There is intervertebral disc space narrowing at L4-5 and L5-S1. Hypertrophic facet changes present at the lower 3 levels. There is subtle grade 1 anterior spondylolisthesis of L4 with respect to L5. There is no associated pars interarticularis defect and the findings are likely degenerative in etiology. There are no compression fractures and alignment is otherwise well maintained. The soft tissues are unremarkable with aortoiliac calcification DIVISION OF RADIOLOGY Provider, [facility] - 06/10/2020 * * *Final Report* * * DATE OF EXAM: Jun 10 2020 11:11AM WOX 5228 - XR LUMBAR 3V AP/LAT/L5-S1 / PROCEDURE REASON: Low back pain, unspecified back pain laterality, unspecified chronicity, unspeci * * * * Physician Interpretation * * * * EXAMINATION: XR LUMBAR 3V AP/LAT/L5-S1 HISTORY: pt states pain for 6 months all across the lower lumbar and lateral hips. no inj Low back pain, unspecified back pain laterality, unspecified whether sciatica present. TECHNIQUE: XR LUMBAR 3V AP/LAT/L5-S1 Laterality: NOT APPLICABLE Number of different views (projections): 3 M: XB_1 COMPARISON: There are no prior relevant examinations available for comparison. RESULT: Counting reference: Lumbosacral junction. For the purposes of this report, L5-S1 is considered the last lumbar-type disc space and L4-5 is considered the level of the iliac crest. 3 Views of the lumbosacral spine with AP, lateral and cone-down radiographs demonstrate multilevel degenerative change with vertebral body osteophytosis. There is partial lumbarization of S1. There is intervertebral disc space narrowing at L4-5 and L5-S1. Hypertrophic facet changes present at the lower 3 levels. There is subtle grade 1 anterior spondylolisthesis of L4 with respect to L5. There is no associated pars interarticularis defect and the findings are likely degenerative in etiology. There are no compression fractures and alignment is otherwise well maintained. The soft tissues are unremarkable with aortoiliac calcification IMPRESSION IMPRESSION: Chronic degenerative change as detailed in report. 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: PSC[employer] Transcribe Date/Time: Jun 10 2020 2:39P Dictated by : ROZ COLE MD This examination was interpreted and the report reviewed and electronically signed by: ROZ COLE MD on Jun 10 2020 2:42PM EST [facility] Radiology Study observation (narrative) [facility] XR Lumbar spine 3 ViewsOrder ed By: Ccf Provider on 06-10-2020 [facility] Basic Panelon 04-10-2019 Creatinine [Mass/Vol] 0.49 mg/dL Low 0.51-0.95 [facility] Comment on above: Performed By: #### P 8 #### [facility] [address] [place], [place] [address] Anion gap [Moles/Vol] 12 mmol/L Normal 8-16 [facility] Comment on above: Performed By: #### P 8 #### [facility] [address] [place], [place] [address] CO2 [Moles/Vol] 29 mmol/L Normal 21-32 [facility] Comment on above: Performed By: #### P 8 #### [facility] [address] [place], [place] [address] Urea nitrogen [Mass/Vol] 14 mg/dL Normal 7-18 [facility] Comment on above: Performed By: #### P 8 #### [facility] [address] [place], [place] [address] Calcium [Mass/Vol] 9.4 mg/dL Normal 8.5-10.1 [facility] Comment on above: Performed By: #### P 8 #### [facility] [address] [place], [place] [address] Glucose [Mass/Vol] 97 mg/dL Normal 70-99 [facility] Comment on above: Performed By: #### P 8 #### [facility] [address] [place], [place] [address] Chloride [Moles/Vol] 101 mmol/L Normal 98-107 [facility] Comment on above: Performed By: #### P 8 #### [facility] [address] [place] [address] Potassium [Moles/Vol] 4.1 mmol/L Normal 3.5-5.1 [facility] Comment on above: Performed By: #### P 8 #### [facility] [address] [place] [address] Sodium [Moles/Vol] 138 mmol/L Normal 136-145 [facility] Comment on above: Performed By: #### P 8 #### [facility] [address] [place] [address] Hemogramon 04-10-2019 Erythrocyte distribution width (RBC) [Ratio] 13.9 % Normal 11.7-14.4 [facility] Comment on above: Performed By: #### C BC1 #### [facility] [address] [place] [address] Hematocrit (Bld) [Volume fraction] 41.9 % Normal 34.1-44.9 [facility] Comment on above: Performed By: #### C BC1 #### [facility] [address] [place] [address] Hemoglobin (Bld) [Mass/Vol] 13.5 g/dL Normal 11.2-15.7 [facility] Comment on above: Performed By: #### C BC1 #### [facility] [address] [place] [address] MCH (RBC) [Entitic mass] 28.6 pg Normal 25.6-32.2 [facility] Comment on above: Performed By: #### C BC1 #### [facility] [address] [place] [address] MCHC (RBC) [Mass/Vol] 32.2 % Normal 31.6-34.8 [facility] Comment on above: Performed By: #### C BC1 #### [facility] [address] [place] [address] MCV (RBC) [Entitic vol] 88.8 fL Normal 79.4-94.8 [facility] Comment on above: Performed By: #### C BC1 #### [facility] [address] [place] [address] Platelet mean volume (Bld) [Entitic vol] 11.6 fL Normal 9.4-12.3 [facility] Comment on above: Performed By: #### C BC1 #### [facility] [address] [place] [id number] Platelets (Bld) [#/Vol] 220 thou/cmm Normal 182-369 [facility] Comment on above: Performed By: #### C BC1 #### [facility] [address] [place] [address] RBC (Bld) [#/Vol] 4.72 mil/cmm Normal 3.93-5.22 [facility] Comment on above: Performed By: #### C BC1 #### [facility] [address] [place] [address] RDW SD 44.7 fl Normal 36.4-46.3 [facility] Comment on above: Performed By: #### C BC1 #### [facility] [address] [place] [id number] WBC (Bld) [#/Vol] 10.20 thou/cmm High 3.98-10.04 [facility] Comment on above: Performed By: #### C BC1 #### [facility] [address] [place] [address] MDRD GFRon 04-10-2019 GFR/1.73 sq M predicted among non-blacks MDRD (S/P/Bld) [Vol rate/Area] mL/min/{1.73_m2} Normal >60mL/min/1. 73m2 [facility] Comment on above: Result Comment: If t he patient is , multiply the result by 1.210. Performed By: #### G FR #### [facility] [address] [place] [address] Type and Screenon 04-10-2019 Comment PAT specimen Normal [facility] Comment on above: Performed By: #### T &S #### [place] [address] ABO group Nom (Bld) O Normal [facility] Comment on above: Performed By: #### T &S #### [facility] [address] [place] [address] RH Type Positive Normal [facility] Comment on above: Performed By: #### T &S #### [facility] [address] [place] [address] XR SPINE CERVICAL W/ OBLIQUE S 5 VIEWSon 12-24-2018 XR SPINE CERVICAL W/ OBLIQUES 5 VIEWS ORIGINAL XR SPINE CERVICAL W/ OBLIQUES 5 VIEWS CLINICAL STATEMENT: NECK PAIN COMPARISON: None FINDINGS: Cervical height and alignment is normal. There is mild to moderate disc space narrowing in the lower cervical spine with spondylosis and moderate facet arthropathy. Normal atlantoaxial relationship. Oblique views show no significant osseous foraminal stenosis on either side. There is at least mild right C6-7 foraminal stenosis from uncinate spurring. Normal prevertebral soft tissue space. IMPRESSION: Degenerative changes as described. Interpreted By: Sorin Calhoun MD Preliminary Report By: Sorin Calhoun MD Electronically Signed By: Sorin Calhoun MD Dictated Date: 12/23/2018 10:40:22 PM Prelim Date: 12/23/2018 10:40:22 PM Sign Date: 12/23/2018 10:41:15 PM Normal [facility] ([place]) No Panel Information [facility] Vital Signs Date Time Vital Sign Value Performing Clinician Facility 12-25-2024 16:16-0400 Body mass index (BMI) [Ratio] 29.23 kg/m2 Gabbie Grady MD Work Phone: [facility] 12-25-2024 16:16-0400 Body weight 83.4 kg Gabbie Grady MD Work Phone: [facility] 12-25-2024 16:16-0400 Diastolic blood pressure 70 mm[Hg] Gabbie Grady MD Work Phone: [facility] 12-25-2024 16:16-0400 Heart rate 78 /min Gabbie Grady MD Work Phone: [facility] 12-25-2024 16:16-0400 Respiratory rate 16 /min Gabbie Grady MD Work Phone: [facility] 12-25-2024 16:16-0400 SaO2% (BldA) [Mass fraction] 98 % Gabbie Grady MD Work Phone: [facility] 12-25-2024 16:16-0400 Systolic blood pressure 126 mm[Hg] Gabbie Grady MD Work Phone: [facility] 09-29-2024 12:05-0400 Body temperature 97.6 [degF] Dr. Gabbie Grady MD Work Phone: [facility] 09-29-2024 12:05-0400 Diastolic blood pressure 87 mm[Hg] Dr. Gabbie Grady MD Work Phone: [phone] [place] [address] 09-29-2024 12:05-0400 Heart rate 63 /min Dr. Gabbie Grady MD Work Phone: [phone] [place] [address] 09-29-2024 12:05-0400 Respiratory rate 16 /min Dr. Gabbie Grady MD Work Phone: [facility] 09-29-2024 12:05-0400 SaO2% (BldA) [Mass fraction] 96 % Dr. Gabbie Grady MD Work Phone: [facility] 09-29-2024 12:05-0400 Systolic blood pressure 146 mm[Hg] Dr. Gabbie Grady MD Work Phone: [phone] [place] [address] 09-29-2024 10:18-0400 Body height 167.[address] Gabbie Grady MD Work Phone: [facility] 09-29-2024 10:18-0400 Body mass index (BMI) [Ratio] 30.2 kg/m2 Dr. Gabbie Grady MD Work Phone: 3(994)998-758811 [place] [address] 09-29-2024 10:18-0400 Body weight [address] Gabbie Grady MD Work Phone: [phone] [place] [address] 09-02-2024 09:20-0500 Body mass index (BMI) [Ratio] 29.25 kg/m2 Lance Moctezuma MD Work Phone: [facility] 09-02-2024 09:20-0500 Body weight 83.46 kg Lance Moctezuma MD Work Phone: [facility] 09-02-2024 09:20-0500 Diastolic blood pressure 74 mm[Hg] Lance Moctezuma MD Work Phone: [facility] 09-02-2024 09:20-0500 Systolic blood pressure 122 mm[Hg] Lance Moctezuma MD Work Phone: [facility] 07-03-2024 13:16-0500 Body mass index (BMI) [Ratio] 30 kg/m2 Gabbie Gardy MD Work Phone: [facility] 07-03-2024 13:16-0500 Body weight 85.6 kg Gabbie Grady MD Work Phone: [facility] 07-03-2024 13:16-0500 Diastolic blood pressure 80 mm[Hg] Gabbie Grday MD Work Phone: [facility] 07-03-2024 13:16-0500 Heart rate 72 /min Gabbie Grady MD Work Phone: [facility] 07-03-2024 13:16-0500 Respiratory rate 18 /min Gabbie Grady MD Work Phone: [facility] 07-03-2024 13:16-0500 Systolic blood pressure 132 mm[Hg] Gabbie Grady MD Work Phone: [facility] 04-26-2024 12:30-0400 Diastolic Blood Pressure Non-Invasive 72 mm[Hg] DR TRINI CHRISTIANSON MD [facility] 04-26-2024 12:30-0400 Mean blood pressure 94 mm[Hg] DR TRINI CHRISTIANSON MD [facility] 04-26-2024 12:30-0400 Respiratory rate 16 /min DR TRINI CHRISTIANSON MD [facility] 04-26-2024 12:30-0400 Systolic Blood Pressure Non-Invasive 158 mm[Hg] DR TRINI CHRISTIANSON MD [facility] 04-26-2024 11:37-0400 Diastolic Blood Pressure Non-Invasive 82 mm[Hg] DR TRINI CHRISTIANSON MD [facility] 04-26-2024 11:37-0400 Heart rate 73 /min DR TRINI CHRISTIANSON MD [facility] 04-26-2024 11:37-0400 Mean blood pressure 101 mm[Hg] DR TRINI CHRISTIANSON MD [facility] 04-26-2024 11:37-0400 Respiratory rate 16 /min DR TRINI CHRISTIANSON MD [facility] 04-26-2024 11:37-0400 Systolic Blood Pressure Non-Invasive 155 mm[Hg] DR TRINI CHRISTIANSON MD [facility] 04-26-2024 11:22-0400 Diastolic Blood Pressure Non-Invasive 79 mm[Hg] DR TRINI CHRISTIANSON MD [facility] 04-26-2024 11:22-0400 Systolic Blood Pressure Non-Invasive 172 mm[Hg] DR TRINI CHRISTIANSON MD [facility] 04-26-2024 10:43-[address] TRINI CHRISTIANSON MD [facility] 04-26-2024 10:43-0400 Body temperature 96.98 [degF] DR TRINI CHRISTIANSON MD [facility] 04-26-2024 10:43-0400 Heart rate 65 /min DR TRINI CHRISTIANSON MD [facility] 04-26-2024 10:43-0400 Respiratory rate 18 /min DR TRINI CHRISTIANSON MD [facility] 04-15-2024 12:55-0400 Body height 168.9 cm Vito Ben PA-C Work Phone: [facility] 04-15-2024 12:55-0400 Body mass index (BMI) [Ratio] 29.41 kg/m2 Vito Ben PA-C Work Phone: [facility] 04-15-2024 12:55-0400 Body weight 83.92 kg Vito Ben PA-C Work Phone: [facility] 04-15-2024 12:55-0400 Respiratory rate 16 /min Vito Ben PA-C Work Phone: [facility] 04-10-2024 12:44-0400 Diastolic blood pressure 90 mm[Hg] Xochilt Fernandez [employer] Work Phone: [facility] 04-10-2024 12:44-0400 Systolic blood pressure 160 mm[Hg] Xochilt Fernandez [employer] SAL[employer] Work Phone: [facility] 04-10-2024 10:00-0400 Diastolic blood pressure 85 mm[Hg] Kian Aceves PT Work Phone: [facility] 04-10-2024 10:00-0400 Systolic blood pressure 159 mm[Hg] Kian Aceves PT Work Phone: [facility] 03-04-2024 12:59-0400 Body height 168.9 cm Vito Ben PA-C Work Phone: [facility] 03-04-2024 12:59-0400 Body mass index (BMI) [Ratio] 29.41 kg/m2 Vito Ben PA-C Work Phone: [facility] 03-04-2024 12:59-0400 Body weight 83.92 kg Vito Ben PA-C Work Phone: [facility] 03-04-2024 12:59-0400 Respiratory rate 16 /min Vito Contreras PA-C Work Phone: [facility] 02-05-2024 14:49-0400 Body height 168.9 cm Wilmar Vivar MD Work Phone: [facility] 02-05-2024 14:49-0400 Body mass index (BMI) [Ratio] 29.41 kg/m2 Wilmar Vivar MD Work Phone: [facility] 02-05-2024 14:49-0400 Body weight 83.92 kg Wilmar Vivar MD Work Phone: [facility] 02-05-2024 14:49-0400 Respiratory rate 20 /min Wilmar Vivar MD Work Phone: [facility] 01-17-2024 13:31-0400 Body height 168.9 cm Pst 1 [facility] 01-17-2024 13:31-0400 Body mass index (BMI) [Ratio] 29.64 kg/m2 Pst 1 [facility] 01-17-2024 13:31-0400 Body temperature 98.1 [degF] Pst 1 [facility] 01-17-2024 13:31-0400 Body weight 84.55 kg Pst 1 [facility] 01-17-2024 13:31-0400 Diastolic blood pressure 89 mm[Hg] Pst 1 [facility] 01-17-2024 13:31-0400 Heart rate 69 /min Pst 1 [facility] 01-17-2024 13:31-0400 Respiratory rate 18 /min Pst 1 [facility] 01-17-2024 13:31-0400 SaO2% (BldA) [Mass fraction] 97 % Pst 1 [facility] 01-17-2024 13:31-0400 Systolic blood pressure 134 mm[Hg] Pst 1 [facility] 12-29-2023 10:50-0400 Body mass index (BMI) [Ratio] 28.98 kg/m2 Gabbie Grady MD Work Phone: [facility] 12-29-2023 10:50-0400 Body weight 83.92 kg Gabbie Grady MD Work Phone: [facility] 12-29-2023 10:50-0400 Diastolic blood pressure 70 mm[Hg] Gabbie Grady MD Work Phone: [facility] 12-29-2023 10:50-0400 Heart rate 73 /min Gabbie Grady MD Work Phone: [facility] 12-29-2023 10:50-0400 Respiratory rate 16 /min Gabbie Grady MD Work Phone: [facility] 12-29-2023 10:50-0400 SaO2% (BldA) [Mass fraction] 96 % Gabbie Grady MD Work Phone: [facility] 12-29-2023 10:50-0400 Systolic blood pressure 120 mm[Hg] Gabbie Grady MD Work Phone: [facility] 12-04-2023 14:02-0400 Body height 170.2 cm Wilmar Vivar MD Work Phone: [facility] 12-04-2023 14:02-0400 Body mass index (BMI) [Ratio] 29.13 kg/m2 Wilmar Vivar MD Work Phone: [facility] 12-04-2023 14:02-0400 Body weight 84.37 kg Wilmar Vivar MD Work Phone: [facility] 12-04-2023 14:02-0400 Respiratory rate 16 /min Wilmar Vivar MD Work Phone: [facility] 10-30-2023 14:40-0400 Body height 170.2 cm Wilmar Vivar MD Work Phone: [facility] 10-30-2023 14:40-0400 Body mass index (BMI) [Ratio] 29.13 kg/m2 Wilmar Vivar MD Work Phone: [facility] 10-30-2023 14:40-0400 Body weight 84.37 kg Wilmar Vivar MD Work Phone: [facility] 10-30-2023 14:40-0400 Respiratory rate 16 /min Wilmar Vivar MD Work Phone: [facility] 12-21-2022 13:23-0400 Body weight 88.86 kg Gabbie Grady MD Work Phone: [facility] 12-21-2022 13:23-0400 Diastolic blood pressure 78 mm[Hg] Gabbie Grady MD Work Phone: [facility] 12-21-2022 13:23-0400 Heart rate 74 /min Gabbie Grady MD Work Phone: [facility] 12-21-2022 13:23-0400 Respiratory rate 16 /min Gabbie Grady MD Work Phone: [facility] 12-21-2022 13:23-0400 Systolic blood pressure 124 mm[Hg] Gabbie Grady MD Work Phone: [facility] 08-16-2022 13:37-0500 Body height 170.2 cm [employer] Work Phone: [facility] 08-16-2022 13:37-0500 Body weight 87.09 kg [employer] Work Phone: [facility] 07-13-2022 12:59-0500 Body height 170.2 cm Kris Jaime MD Work Phone: [facility] 07-13-2022 12:59-0500 Body temperature 97.7 [degF] Kris Jamie MD Work Phone: [facility] 07-13-2022 12:59-0500 Body weight 87.54 kg Kris Jaime MD Work Phone: [facility] 07-13-2022 12:59-0500 Diastolic blood pressure 79 mm[Hg] Kris Jaime MD Work Phone: [facility] 07-13-2022 12:59-0500 Heart rate 79 /min Kris Jaime MD Work Phone: [facility] 07-13-2022 12:59-0500 SaO2% (BldA) [Mass fraction] 98 % Kris Jaime MD Work Phone: [facility] 07-13-2022 12:59-0500 Systolic blood pressure 137 mm[Hg] Kris Jaime MD Work Phone: [facility] 06-20-2022 10:48-0500 Body height 170.2 cm Yoandy Leon MD Work Phone: [facility] 06-20-2022 10:48-0500 Body temperature 97.5 [degF] Yoandy Leon MD Work Phone: [facility] 06-20-2022 10:48-0500 Body weight 87.91 kg Yoandy Leon MD Work Phone: [facility] 06-20-2022 10:48-0500 Diastolic blood pressure 82 mm[Hg] Yoandy Leon MD Work Phone: [facility] 06-20-2022 10:48-0500 Heart rate 80 /min Yoandy Leon MD Work Phone: [facility] 06-20-2022 10:48-0500 SaO2% (BldA) [Mass fraction] 99 % Yoandy Leon MD Work Phone: [facility] 06-20-2022 10:48-0500 Systolic blood pressure 124 mm[Hg] Yoandy Leon MD Work Phone: [facility] 05-24-2022 13:38-0500 Body height 170.[address] Gabbie Grady Work Phone: [facility] 05-24-2022 13:38-0500 Body mass index (BMI) [Ratio] 30.7 kg/m2 Dr. Gabbie Grady Work Phone: [facility] 05-24-2022 13:38-0500 Body temperature 97.7 [degF] Dr. Gabbie Grady Work Phone: [facility] 05-24-2022 13:38-0500 Body weight 88.[address] Gabbie Grady Work Phone: [facility] 05-24-2022 13:38-0500 Diastolic blood pressure 88 mm[Hg] Dr. Gabbie Grady Work Phone: [facility] 05-24-2022 13:38-0500 Heart rate 81 /min Dr. Gabbie rGady Work Phone: [facility] 05-24-2022 13:38-0500 Respiratory rate 17 /min Dr. Gabbie Grady Work Phone: [facility] 05-24-2022 13:38-0500 SaO2% (BldA) [Mass fraction] 99 % Dr. Gabbie Grady Work Phone: [facility] 05-24-2022 13:38-0500 Systolic blood pressure 133 mm[Hg] Dr. Gabbie Grady Work Phone: [facility] 05-04-2022 11:17-0400 Body weight 88.45 kg Xochilt Fernandez [employer] SAL[employer] Work Phone: [facility] 05-04-2022 11:17-0400 Diastolic blood pressure 98 mm[Hg] Xochilt Fernandez [employer] SAL[employer] Work Phone: [facility] 05-04-2022 11:17-0400 Heart rate 74 /min Xochilt Fernandez [employer] SAL[employer] Work Phone: [facility] 05-04-2022 11:17-0400 Respiratory rate 16 /min Xochilt Fernandez [employer] SALES [employer] Work Phone: [facility] 05-04-2022 11:17-0400 SaO2% (BldA) [Mass fraction] 97 % Xochilt Fernandez [employer] SAL[employer] Work Phone: [facility] 05-04-2022 11:17-0400 Systolic blood pressure 150 mm[Hg] Xochilt Fernandez [employer] SAL[employer] Work Phone: [facility] 01-17-2022 11:31-0400 Body height 170.2 cm RADHA SALAS MD [facility] 01-17-2022 11:31-0400 Body temperature 98.42 [degF] RADHA SALAS MD [facility] 01-17-2022 11:31-0400 Body weight 88.5 kg RADHA SALAS MD [facility] 01-17-2022 11:31-0400 Diastolic blood pressure 89 mm[Hg] RADHA SALAS MD [facility] 01-17-2022 11:31-0400 Heart rate 83 /min RADHA SALAS MD [facility] 01-17-2022 11:31-0400 Respiratory rate 16 /min RADHA SALAS MD [facility] 01-17-2022 11:31-0400 Systolic blood pressure 164 mm[Hg] RADHA SALAS MD [facility] 12-29-2021 13:36-0400 Body weight 88.68 kg Gabbie Grady MD Work Phone: [facility] 12-29-2021 13:36-0400 Diastolic blood pressure 76 mm[Hg] Gabbie Grady MD Work Phone: [facility] 12-29-2021 13:36-0400 Heart rate 78 /min Gabbie Grady MD Work Phone: [facility] 12-29-2021 13:36-0400 Respiratory rate 16 /min Gabbie Grady MD Work Phone: [facility] 12-29-2021 13:36-0400 Systolic blood pressure 124 mm[Hg] Gabbie Grady MD Work Phone: [facility] 09-15-2021 12:54-0500 Body height 167.[address] Gabbie Grady Work Phone: [facility] Work Phone: 09-15-2021 12:54-0500 Body mass index (BMI) [Ratio] 31.1 kg/m2 Dr. Gabbie Grady Work Phone: [facility] Work Phone: 09-15-2021 12:54-0500 Body temperature 97.1 [degF] Dr. Gabbie Grady Work Phone: [facility] Work Phone: 09-15-2021 12:54-0500 Body weight 87.[address] Gabbie Grady Work Phone: [facility] Work Phone: 09-15-2021 12:54-0500 Diastolic blood pressure 70 mm[Hg] Dr. Gabbie Grady Work Phone: [facility] Work Phone: 09-15-2021 12:54-0500 Heart rate 70 /min Dr. Gabbie Grady Work Phone: [facility] Work Phone: 09-15-2021 12:54-0500 Respiratory rate 18 /min Dr. Gabbie Grady Work Phone: [facility] Work Phone: 09-15-2021 12:54-0500 SaO2% (BldA) [Mass fraction] 98 % Dr. Gabbie Grady Work Phone: [facility] Work Phone: 09-15-2021 12:54-0500 Systolic blood pressure 114 mm[Hg] Dr. Gabbie Grady Work Phone: [facility] Work Phone: 08-02-2021 13:03-0500 Body temperature 97.2 [degF] Dr. Gabbie Grady Work Phone: [facility] Work Phone: 08-02-2021 13:03-0500 Diastolic blood pressure 64 mm[Hg] Dr. Gabbie Grady Work Phone: [facility] Work Phone: 08-02-2021 13:03-0500 Heart rate 58 /min Dr. Gabbie Grady Work Phone: [facility] Work Phone: 08-02-2021 13:03-0500 Respiratory rate 16 /min Dr. Gabbie Grady Work Phone: [facility] Work Phone: 08-02-2021 13:03-0500 SaO2% (BldA) [Mass fraction] 100 % Dr. Gabbie Grady Work Phone: [facility] Work Phone: 08-02-2021 13:03-0500 Systolic blood pressure 118 mm[Hg] Dr. Gabbie Grady Work Phone: [facility] Work Phone: 08-02-2021 11:11-0500 Body mass index (BMI) [Ratio] 29.7 kg/m2 Dr. Gabbie Grady Work Phone: [facility] Work Phone: 08-02-2021 11:11-0500 Body weight [address] Gabbie Grady Work Phone: [facility] Work Phone: Encounters Encounter Date Encounter Type Care Provider Facility Start: 05-15-2025 ambulatory Parul Vega ty:[facility] Start: 04-09-2025 End: 04-09-2025 ambulatory GABBIE GRADY Facility:[facility] Start: 02-24-2025 End: 02-24-2025 Refill Gabbie Grady MD Work Phone: [facility] Comment on above: Refill Request Start: 02-03-2025 ambulatory Gabbie Grady Facilit y:[facility] Start: 01-20-2025 End: 01-20-2025 Refill Jaskaran Quiroz APRN.CNP Work Phone: [facility] Comment on above: Refill Request Start: 01-12-2025 End: 03-14-2025 Follow-up encounter Jaskaran Quiroz APRN.CNP Work Phone: [facility] Start: 01-07-[address] [facility] ity:[facility] Start: 01-07-2025 End: 01-07-2025 Subsequent hospital visit by physician Screen Mammo [facility] Comment on above: Encounter for screen ing mammogram for malignant neoplasm of breast [Z12.31] Start: 01-07-2025 End: 01-07-[address] Gabbie Grady MD Work Phone: -Laboratory Start: 01-07-2025 End: 01-07-2025 Patient encounter procedure Parul PRINGLE -Laboratory Work Phone: Start: 01-07-2025 End: 01-07-2025 ambulatory Doug Tamez Facility:[facility] Start: 01-01-2025 End: 01-01-2025 Patient encounter procedure Parul PRINGLE -[facility] Work Phone: Start: 01-01-2025 End: 01-01-[address] Gabbie Grady MD Work Phone: [facility] Work Phone: Start: 12-25-2024 End: 12-25-2024 Office outpatient visit 25 minutes Gabbie Grady MD Work Phone: [facility] Comment on above: Controlled type 2 di abetes mellitus without complication, without long-term current use of insulin (HCC) (Primary Dx); Encounter for screening mammogram for malignant neoplasm of breast; Mixed hyperlipidemia; HYPERTENSION; Fibromyalgia; Abdominal bloating; Pain of upper abdomen; Vitamin D deficiency; Family history of hemochromatosis; Temporal arteritis (HCC); Diarrhea, unspecified type Start: 12-25-2024 End: 12-25-2024 ambulatory GABBIE GRADY Facility:[facility] Start: 12-22-2024 End: 12-22-2024 ambulatory GABBIE GRADY Facility:[facility] Start: 12-04-2024 End: 12-05-2024 ambulatory Gabbie Grady MD Work Phone: [facility] [place] Comment on above: Medication issue Start: 11-20-2024 End: 11-20-2024 Refill Jaskaran Jaydon [employer] Work Phone: [facility] Comment on above: Refill Request Start: 10-22-2024 End: 10-23-2024 Get Medical Advice Gabbie Grady MD Work Phone: [facility] Comment on above: Rxs not available to be refilled?? Refill Request Start: 09-29-2024 Non-patient / Non-visit Doug Camarillo nd DO -[facility] Start: 09-29-2024 End: 09-29-2024 Admission to same day surgery center Doug Tamez DO -Endoscopy Work Phone: Start: 09-29-2024 End: 09-29-[address] Gabbie Grady MD Work Phone: [facility] Work Phone: Start: 09-16-2024 End: 09-16-2024 Refill Jaskaran Jaydon [employer] Work Phone: [facility] Comment on above: Refill Request Meds Start: 09-05-2024 End: 11-05-2024 Follow-up encounter Lance Moctezuma MD Work Phone: OB/Gynecology Start: 09-05-2024 End: 09-05-2024 ambulatory LANCE MOCTEZUMA Facility:[facility] Start: 09-02-2024 End: 09-02-2024 Telephone encounter Lance Moctezuma MD Work Phone: OB/Gynecology Comment on above: Patient Update Start: 09-02-2024 End: 09-02-2024 ambulatory LANCE MOCTEZUMA Facility:[facility] Start: 09-02-2024 End: 09-02-2024 Patient encounter procedure Lance Moctezuma MD Work Phone: OB/Gynecology Comment on above: Perineal abscess (Pr imary Dx); Adverse drug interaction with prescription medication Start: 08-11-2024 End: 08-11-2024 Orders Only Erum Duncan APRN.[employer] Work Phone: Pulmonary Medicine Comment on above: Personal history of tobacco use, presenting hazards to health (Primary Dx) Start: 07-03-2024 End: 07-03-2024 ambulatory [facility] Facility:[facility] Start: 07-03-2024 End: 07-03-2024 Patient encounter procedure Gabbie Grady MD Work Phone: [facility] Comment on above: Controlled type 2 di abetes mellitus without complication, without long-term current use of insulin (HCC) (Primary Dx); Neuropathy; HYPERTENSION; Mixed hyperlipidemia; Fibromyalgia; Gastroesophageal reflux disease, unspecified whether esophagitis present; Temporal arteritis (HCC); Memory change; Osteopenia, unspecified location Start: 07-03-2024 End: 07-03-2024 ambulatory [facility] Facility:[facility] Start: 07-01-2024 End: 07-01-2024 Refill Jaskaran Quiroz APRN.[employer] Work Phone: [facility] Comment on above: Refill Request Start: 05-25-2024 End: 05-26-2024 Refill Gabbie Grady MD Work Phone: [facility] Comment on above: Refill Request Start: 05-08-2024 End: 05-08-2024 ambulatory Kian Aceves PT Work Phone: [facility] Comment on above: S/P left rotator cuf f repair (Primary Dx) Start: 04-26-2024 End: 04-26-2024 Emergency department patient visit DR TRINI CHRISTIANSON MD [facility] Start: 04-24-2024 End: 04-24-2024 ambulatory Kian Aceves PT Work Phone: [facility] Comment on above: S/P left rotator cuf f repair (Primary Dx) Start: 04-21-2024 End: 04-21-2024 ambulatory Kian Aceves PT Work Phone: [facility] Comment on above: S/P left rotator cuf f repair (Primary Dx) Start: 04-15-2024 End: 04-15-2024 Patient encounter procedure Vito Contreras PA-C Work Phone: [facility] Comment on above: S/P left rotator cuf f repair (Primary Dx) Start: 04-15-2024 End: 04-15-2024 ambulatory GABBIE Irving [facility] Facility:[facility] Start: 04-14-2024 End: 04-14-2024 Refill Jaskaran Quiroz APRN.[employer] Work Phone: [facility] Comment on above: Refill Request S/P left rotator cuf f repair (Primary Dx) Start: 04-11-2024 End: 04-28-2024 ambulatory Xochilt Fernandez APRN.[employer] Work Phone: [facility] Comment on above: BP and med increase Start: 04-10-2024 End: 04-10-2024 Patient encounter procedure Xochilt Fernandez APRN.[employer] Work Phone: [facility] Comment on above: HYPERTENSION (Primar y Dx) Start: 04-10-2024 End: 04-10-2024 ambulatory Kian Aceves PT Work Phone: [facility] Comment on above: S/P left rotator cuf f repair (Primary Dx) Start: 04-09-2024 End: 04-10-2024 Telephone encounter Xochilt Fernandez APRN.[employer] Work Phone: [facility] Comment on above: Increased BP Start: 04-07-2024 End: 04-07-2024 ambulatory Kian Aceves PT Work Phone: [facility] Comment on above: S/P left rotator cuf f repair (Primary Dx) Start: 04-04-2024 End: 04-04-2024 Refill Gabbie Grady MD Work Phone: [facility] Comment on above: Refill Request Start: 03-31-2024 End: 03-31-2024 ambulatory Kian Aceves PT Work Phone: [facility] Comment on above: S/P left rotator cuf f repair (Primary Dx) Start: 03-21-2024 End: 03-21-2024 ambulatory Kian Aceves PT Work Phone: [facility] Comment on above: S/P left rotator cuf f repair (Primary Dx) Start: 03-18-2024 End: 03-18-2024 Refill Jaskaran Quiroz APRN.[employer] Work Phone: [facility] Comment on above: Refill Request Start: 03-11-2024 End: 03-11-2024 ambulatory Kian Aceves PT Work Phone: [facility] Comment on above: S/P left rotator cuf f repair (Primary Dx) Start: 03-04-2024 End: 03-04-2024 ambulatory Rachel Stevens [employer] Work Phone: [facility] Comment on above: S/P left rotator cuf f repair (Primary Dx) Start: 03-04-2024 End: 03-04-2024 Patient encounter procedure Vito Contreras PA-C Work Phone: [facility] Comment on above: S/P left rotator cuf f repair Start: 03-04-2024 End: 03-04-2024 ambulatory GABBIE GRADY Facility[facility] Start: 02-28-2024 End: 02-28-2024 ambulatory Kian Aceves PT Work Phone: [facility] Comment on above: S/P left rotator cuf f repair (Primary Dx) Start: 02-26-2024 End: 02-26-2024 Refill Wilmar Vivar MD Work Phone: [facility] Comment on above: Refill Request Start: 02-25-2024 End: 02-26-2024 Refill Vito Ben PA-C Work Phone: [facility] Comment on above: Refill Request Start: 02-19-2024 End: 02-19-2024 ambulatory Rachel Stevens [employer] Work Phone: [facility] Comment on above: S/P left rotator cuf f repair (Primary Dx) Start: 02-18-2024 Refill Vito Ben PA-C Work Phone: [facility] Comment on above: Refill Request Start: 02-12-2024 End: 02-12-2024 ambulatory Kian Aceves PT Work Phone: [facility] Comment on above: S/P left rotator cuf f repair (Primary Dx) Start: 02-10-2024 Refill Vito Ben PA-C Work Phone: [facility] Comment on above: Refill Request Start: 02-08-2024 Refill Wilmar Vivar MD Work Phone: [facility] Comment on above: Refill Request Start: 02-05-2024 End: 02-05-2024 ambulatory Kian Aceves PT Work Phone: [facility] Comment on above: S/P left rotator cuf f repair (Primary Dx) Start: 02-05-2024 End: 02-05-2024 Patient encounter procedure Wilmar Vivar MD Work Phone: [facility] Comment on above: S/P left rotator cuf f repair (Primary Dx) Start: 02-05-2024 End: 02-05-2024 ambulatory WILMAR VIVAR Facility:[facility] Start: 02-01-2024 Refill Wilmar Vivar MD Work Phone: [facility] Comment on above: Refill Request Start: 01-31-2024 End: 05-06-2024 Telephone encounter Kian Aceves PT Work Phone: [facility] Comment on above: Insurance Authorizat ion (PT Rehab Follow Up) Start: 01-28-2024 End: 01-28-2024 ambulatory Kian Aceves PT Work Phone: [facility] Comment on above: S/P left rotator cuf f repair (Primary Dx) Start: 01-25-2024 Refill Vito Contreras PA-C Work Phone: [facility] Comment on above: Refill Request Start: 01-21-2024 ambulatory WILMAR VIVAR Facility:[facility] Start: 01-17-2024 End: 01-17-2024 Admission to establishment [facility] [place] 1 Pre Surgical Testing Start: 01-17-2024 End: 01-17-2024 Preprocedural examination done [address] Work Phone: Start: 01-17-2024 End: 01-17-2024 ambulatory GABBIE GRADY Pre Surgical Testing Comment on above: Pre-op examination ( Primary Dx); Bicipital tendinitis, left; HYPERTENSION; Mixed hyperlipidemia; Aortic atherosclerosis (HCC); Giant cell arteritis (HCC); Fibromuscular dysplasia (HCC); Gastroesophageal reflux disease, unspecified whether esophagitis present; Controlled type 2 diabetes mellitus without complication, without long-term current use of insulin (HCC); Tobacco abuse, in remission Start: 01-17-2024 Encounter for other preprocedural examination WILMAR VIVAR [facility] Start: 01-07-2024 ambulatory GABBIE Lau ity:[facility] Start: 01-07-2024 End: 01-07-2024 Subsequent hospital visit by physician Screen/Diagnostic Mammo [facility] Work Phone: Mammography Comment on above: Abnormal mammogram [ R92.8] Start: 01-03-2024 Refill Jaskaran LU RN.[facility] Work Phone: [facility] Comment on above: Refill Request Start: 12-29-2023 End: 12-29-2023 Patient encounter procedure Gabbie Grady MD Work Phone: [facility] Comment on above: HYPERTENSION (Primar y Dx); Mixed hyperlipidemia; Fibromyalgia; Controlled type 2 diabetes mellitus without complication, without long-term current use of insulin (HCC); Biceps tendonosis of right shoulder; Temporal arteritis (HCC) Start: 12-20-2023 Refill Gabbie osuna MD Work Phone: [facility] Comment on above: Refill Request Start: 12-04-2023 End: 12-04-2023 Orders Only Wilmar Vivar MD Work Phone: [facility] Orthopedics Comment on above: Bicipital tendinitis , left (Primary Dx) Biceps tendinitis of left upper extremity (Primary Dx) Start: 11-29-2023 Telephone encounter Gabbie lindsay MD Work Phone: [facility] Comment on above: Results Start: 11-27-2023 Documentation procedure Mammog cuauhtemoc Coordinator [facility] Department Start: 11-27-2023 Letter encounter Mammography Coordinator [facility] Department Start: 11-26-2023 End: 11-26-2023 Subsequent hospital visit by physician Mri Radio [facility] (I-Stat/1.5t) Work Phone: Radiology Comment on above: Biceps tendonitis on left [M75.22] Start: 11-26-2023 End: 11-26-2023 Subsequent hospital visit by physician Screen Mammo [facility] Mammogram Comment on above: Encounter for screen ing mammogram for breast cancer [Z12.31] Start: 11-21-2023 ambulatory Gabbie osuna MD Work Phone: Internal Medicine [facility] [place] Start: 11-17-2023 Refill Gabbie osuna MD Work Phone: [facility] Comment on above: Refill Request Start: 11-03-2023 Refill Gabbie osuna MD Work Phone: [facility] Comment on above: Refill Request Start: 10-30-2023 End: 10-30-2023 Patient encounter procedure Wilmar Vivar MD Work Phone: [facility] Orthopedics Comment on above: Biceps tendonitis on left (Primary Dx); Chronic left shoulder pain Start: 10-30-2023 End: 10-30-2023 ambulatory GABBIE GRADY Facility:[facility] Start: 10-29-2023 Refill Gabbie osuna MD Work Phone: [facility] Comment on above: Refill Request Start: 10-27-2023 Refill Jaskaran LU RN.[facility] Work Phone: [facility] [place] Comment on above: Refill Request Start: 10-19-2023 Refill Jaskaran LU RN.[facility] [employer] Work Phone: [facility] [place] Comment on above: Refill Request Start: 09-24-2023 Refill Gabbie osuna MD Work Phone: [facility] Comment on above: Refill Request Start: 08-29-2023 Refill Jaskaran LU RN.[facility] Work Phone: [facility] [place] Comment on above: Refill Request Start: 06-02-2023 Refill Gabbie osuna MD Work Phone: [facility] Comment on above: Refill Request Start: 05-23-2023 ambulatory Gabbie osuna MD Work Phone: [facility] Comment on above: Request and info re upcoming appt on June Bicep tendon injecti on Start: 05-23-2023 Telephone encounter Gabbie lindsay MD Work Phone: [facility] Comment on above: Patient Request Start: 04-23-2023 End: 04-23-2023 Refill Jaskaran Quiroz APRN.[facility] Work Phone: [facility] [place] Comment on above: Refill Request Chronic left shoulde r pain (Primary Dx); Biceps tendonitis on left Start: 03-23-2023 End: 03-23-2023 Patient encounter procedure Cheng Mariscal Work Phone: Podiatry Comment on above: Other diabetic neuro logical complication associated with type 2 diabetes mellitus (HCC) (Primary Dx); Onychomycosis; Pain in toe of left foot; Pain in toe of right foot; Hyperkeratosis; Left foot pain Start: 03-05-2023 End: 03-05-2023 Patient encounter procedure Tom Soriano MD Work Phone: Orthopaedics Comment on above: Chronic left shoulde r pain (Primary Dx); Nontraumatic incomplete tear of left rotator cuff Start: 01-05-2023 Orders Only Suly Dallas MD Work Phone: Cardiology Comment on above: HYPERTENSION (Primar y Dx) Start: 01-04-2023 Orders Only Aurora Braun jennifer DO Work Phone: Vascular Medicine Comment on above: Arterial fibromuscul ar dysplasia (HCC) (Primary Dx); Atherosclerosis; Mixed hyperlipidemia; Statin intolerance Start: 12-21-2022 End: 12-21-2022 Patient encounter procedure Gabbie Grady MD Work Phone: [facility] [place] Comment on above: Controlled type 2 di abetes mellitus without complication, without long-term current use of insulin (HCC) (Primary Dx); HYPERTENSION; Abdominal bloating; Pain of upper abdomen; Acute right ankle pain; Cough; Mixed hyperlipidemia; Fibromyalgia; Vitamin D deficiency; Neuropathy; Memory change; Fatigue, unspecified type Start: 12-13-2022 ambulatory Gabbie osuna MD Work Phone: [facility] [place] Comment on above: Labs Start: 11-09-2022 Orders Only Jeimy haider APRN.[facility] Work Phone: Pulmonary Medicine Comment on above: Encounter for screen ing for lung cancer (Primary Dx); Former tobacco use Start: 11-07-2022 Refill Jaskaran LU RN.[facility] Work Phone: [facility] [place] Comment on above: Refill Request Start: 11-02-2022 Refill Gabbie osuna MD Work Phone: [facility] Comment on above: Refill Request Start: 10-30-2022 End: 10-30-2022 Orders Only Tom Soriano MD Work Phone: Orthopaedics Comment on above: Left shoulder pain, unspecified chronicity (Primary Dx) Left shoulder pain, unspecified chronicity [M25.512] Start: 10-18-2022 Documentation procedure Mammog cuauhtemoc Coordinator [facility] Start: 10-18-2022 Letter encounter Mammography Coordinator [facility] Department Start: 10-17-2022 End: 10-17-2022 Subsequent hospital visit by physician Screen Mammo [facility] Mammogram Comment on above: Encounter for screen ing mammogram for breast cancer [Z12.31] Start: 10-03-2022 Refill Gabbie osuna MD Work Phone: [facility] Comment on above: Refill Request Start: 09-30-2022 Refill Gabbie osuna MD Work Phone: [facility] Comment on above: Refill Request Start: 09-27-2022 ambulatory Gabbie osuna MD Work Phone: Internal Medicine [facility] [place] Start: 09-05-2022 Refill Xochilt Rebecca ROBLES Work Phone: [facility] [place] Comment on above: Refill Request Start: 09-05-2022 Telephone encounter Kris fitzgerald MD Work Phone: General Surgery Comment on above: 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 Gabbie Grady Work Phone: [facility] Work Phone: Start: 08-25-2022 End: 08-25-[address] 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 Work Phone: Pre Anesthesia Comment on above: Pre-op exam (Primary Dx); Tobacco abuse, in remission; Mixed hyperlipidemia; HYPERTENSION; Fibromuscular dysplasia (HCC); Controlled type 2 diabetes mellitus without complication, without long-term current use of insulin (HCC); Heart palpitations Start: 08-16-2022 End: 08-16-2022 Preprocedural examination done [facility] Work Phone: Pre Anesthesia Start: 08-10-2022 Refill Gabbie osuna MD Work Phone: Family [facility] [place] Comment on above: Order request; Refil l Request Start: 08-07-2022 Refill Jaskaran LU RN.[facility] Work Phone: Family [facility] Comment on above: Refill Request Start: 07-19-2022 ambulatory Sofie kasper PA-C Work Phone: Pulmonary Medicine Start: 07-13-2022 ambulatory Frederick Oates RN [facility] Surgery Comment on above: Education Of Patient /family Start: 07-13-2022 End: 07-13-2022 Patient encounter procedure Kris Jaime MD Work Phone: General Surgery Comment on above: Non-recurrent bilate ral inguinal hernia without obstruction or gangrene (Primary Dx) Start: 06-30-2022 End: 06-30-2022 ambulatory Gabbie Grady MD Work Phone: Family [facility] Comment on above: Controlled type 2 di abetes mellitus without complication, without long-term current use of insulin (HCC) (Primary Dx); HYPERTENSION; Mixed hyperlipidemia; Statin intolerance; Fibromuscular dysplasia (HCC); Fibromyalgia; Temporal arteritis (HCC) Start: 06-30-2022 End: 06-30-2022 Telemedicine consultation with patient Gabbie Grady MD Work Phone: [facility] Start: 06-20-2022 End: 06-20-2022 Patient encounter procedure Yoandy Leon MD Work Phone: General Surgery Comment on above: Bilateral recurrent inguinal hernia without obstruction or gangrene (Primary Dx) Start: 05-24-2022 End: 05-24-[address] Gabbie Grady Work Phone: [facility] Start: 05-22-2022 Refill Gabbie osuna MD Work Phone: [facility] Comment on above: Refill Request Start: 05-17-2022 Telephone encounter Gabbie lindsay MD Work Phone: [facility] Comment on above: Referral Request Start: 05-04-2022 End: 05-04-2022 Patient encounter procedure Xochilt Fernandez APRN.[facility] [employer] Work Phone: [facility] Comment on above: HYPERTENSION (Primar y Dx) Start: 04-23-2022 Refill Jaskaran LU RN.[facility] [employer] Work Phone: [facility] Comment on above: Refill Request Start: 03-27-2022 End: 03-27-2022 Patient encounter procedure Tom Soriano MD Work Phone: Orthopaedics Comment on above: Primary osteoarthrit is of left knee (Primary Dx); Acute pain of left knee; Contusion of left knee, initial encounter Start: 03-27-2022 End: 03-27-2022 Subsequent hospital visit by physician Xr [facility] Work Phone: Radiology Comment on above: Left knee pain, unsp ecified chronicity [M25.562] Start: 02-03-2022 End: 02-03-2022 ambulatory Kian Aceves PT [facility] Physical Therapy Comment on above: Acute midline low ba ck pain without sciatica (Primary Dx) Start: 01-26-2022 Telephone encounter Xochilt burch APRN.[facility] Work Phone: [facility] Comment on above: Results (Xray ) Start: 01-20-2022 End: 01-20-2022 Subsequent hospital visit by physician Judy [facility] Work Phone: Radiology Comment on above: ER FU Start: 01-20-2022 End: 01-20-2022 Patient encounter procedure Xochilt Bartonbrenda [facility] Work Phone: [facility] Comment on above: Hospital discharge f ollow-up (Primary Dx); Puncture wound; Acute right ankle pain Start: 01-17-2022 Telephone encounter Anastacio thomas DO Work Phone: Orthopaedics Comment on above: puncture wound to le g Start: 01-17-2022 End: 01-17-2022 Emergency department patient visit RADHA SALAS MD [facility] Start: 01-05-2022 End: 01-05-2022 ambulatory Kian Aceves PT [facility] Physical Therapy Comment on above: Acute midline low ba ck pain without sciatica (Primary Dx) Start: 12-29-2021 End: 12-29-2021 Patient encounter procedure Gabbie Grady MD Work Phone: [facility] Comment on above: Controlled type 2 di abetes mellitus without complication, without long-term current use of insulin (HCC) (Primary Dx); Acute midline low back pain without sciatica; Fibromyalgia; Mixed hyperlipidemia; HYPERTENSION; Gastroesophageal reflux disease, unspecified whether esophagitis present; Acute right ankle pain Start: 12-20-2021 Refill Gabbie osuna MD Work Phone: [facility] Comment on above: Refill Request Start: 12-07-2021 Refill Gabbie osuna MD Work Phone: [facility] Comment on above: Refill Request Start: 12-02-2021 End: 12-02-2021 ambulatory Kian Aceves PT [facility] Physical Therapy Comment on above: Acute midline low ba ck pain without sciatica (Primary Dx) Start: 11-30-2021 Refill Jess Camp MD Work Phone: Rheumatology Comment on above: Refill Request Start: 11-28-2021 ambulatory Jess Camp MD Work Phone: Rheumatology Comment on above: Prednisone Refill Request Start: 11-24-2021 End: 11-24-[address] Gabbie Grady Work Phone: [facility] [place] Start: 11-23-2021 Orders Only Wilmar Vivar MD Work Phone: [place] [facility] Comment on above: Right shoulder pain, unspecified chronicity (Primary Dx) Start: 11-22-2021 End: 11-22-2021 ambulatory Kian Aceves PT Work Phone: [facility] Physical Therapy Comment on above: Acute midline low ba ck pain without sciatica (Primary Dx) Start: 11-16-2021 Refill Gabbie osuna MD Work Phone: [facility] Comment on above: Refill Request Lower back, left hip and right shoulder pain Start: 11-15-2021 End: 11-15-2021 Patient encounter procedure Cheng Rivasolya Work Phone: Podiatry Comment on above: Other diabetic neuro logical complication associated with type 2 diabetes mellitus (HCC) (Primary Dx); Onychomycosis; Pain in toe of left foot; Pain in toe of right foot; Hyperkeratosis Start: 11-15-2021 End: 11-15-2021 ambulatory Caty Du [employer] Work Phone: [facility] Physical Therapy Comment on above: Acute midline low ba ck pain without sciatica (Primary Dx) Start: 11-09-2021 Refill Gabbie osuna MD Work Phone: [facility] Comment on above: Refill Request Start: 10-28-2021 Refill Gabbie osuna MD Work Phone: [facility] Comment on above: Refill Request Start: 10-21-2021 End: 10-21-2021 Subsequent hospital visit by physician [facility] Work Phone: Radiology Comment on above: Acute midline low ba ck pain without sciatica [M54.50] Start: 10-19-2021 ambulatory Gabbie osuna MD Work Phone: Family Medicine [place] Comment on above: Severe back pain Start: 10-06-2021 End: 10-06-2021 Patient encounter procedure Yoandy Mtz MD Work Phone: Ophthalmology Comment on above: Type 2 diabetes sarah itus without retinopathy (HCC) (Primary Dx); Giant cell arteritis (HCC); Glaucoma, steroid induced Start: 10-03-2021 Telephone encounter Jess Camp MD Work Phone: Rheumatology Comment on above: Returning Patient's Call Start: 09-15-2021 End: 09-15-[address] Gabbie Grady Work Phone: [facility]-Laboratory, [facility] Start: 09-15-2021 End: 09-15-[address] Gabbie Grady Work Phone: [facility] Internal Medicine Start: 09-09-2021 Telephone encounter Fito Trejo MD Work Phone: Urology Comment on above: Patient Question Start: 09-01-2021 ambulatory Fito Trejo MD Work Phone: Urology Comment on above: Nephrolithotomy/ UTI Start: 08-22-2021 End: 08-22-[address] Gabbie Grady Work Phone: [facility] Gastroenterology Start: 08-02-2021 Non-patient / Non-visit Dr. Miri Grady Work Phone: [facility] Start: 08-02-2021 End: 08-02-2021 Admission to same day surgery center Dr. Gabbie rGady Work Phone: [facility]-Endoscopy Start: 06-10-2020 End: 06-10-2020 Subsequent hospital visit by physician [facility] Work Phone: Radiology Comment on above: Low back pain, unspe cified back pain laterality, unspecified chronicity, unspecified whether sciatica present [M54.5] Procedures Date Procedure Procedure Detail Performing Clinician Start: 01-07-2025 [address] e detection Dr. Gabbie Grady MD Work Phone: Start: 01-07-[address] Gabbie Grady MD Work Phone: Start: 01-07-[address] Gabbie Grady MD Work Phone: Start: 01-07-2025 Iadna-dna/rna gi pth gn multiplex probe tq 6-11 Dr. Gabbie Grady MD Work Phone: Start: 09-29-2024 End: 09-29-[address] Gabbie Grady MD Work Phone: Start: 09-02-2024 Cul bact xcpt urine blood/stool aerobic isol Lance Moctezuma MD Work Phone: Start: 01-28-2024 History of repair of musculotendinous cuff of shoulder S/P left rotator cuff repair Kian Aceves PT Work Phone: Start: 01-07-2024 Digital breast tomosynthesis unilateral Gabbie Grady MD Work Phone: Start: 12-29-2023 Adult depression scr eening assessment Wilmar Vivar MD Work Phone: Start: 04-23-2023 Arthrocentesis aspir &/inj major jt/bursa w/us Tom Soriano MD Work Phone: Start: 04-23-2023 Arthrocentesis aspir &/inj major jt/bursa w/us Tom Soriano MD Work Phone: Start: 03-05-2023 Arthrocentesis aspir &/inj major jt/bursa w/o us Tom Soriano MD Work Phone: Start: 10-30-2022 Radex shoulder compl ete minimum 2 views Tom Soriano MD Work Phone: Start: 10-17-2022 End: 10-17-2022 Mammography Bulk Order Provider Start: 08-25-[address] Gabbie Grady Work Phone: Start: 08-25-[address] Gabbie Grady Work Phone: Start: 08-23-2022 Dxa bone density holger dy 1/> sites axial skel Gabbie Grady MD Work Phone: Start: 03-27-2022 Arthrocentesis aspir &/inj major jt/bursa w/o us Tom Sorinao MD Work Phone: Start: 01-20-2022 Radex ankle complete minimum 3 views Xochilt Fernandez APRN.CNP Work Phone: Start: 11-24-[address] Gabbie Grady Work Phone: Start: 10-21-2021 Radex spine lumbosac ral 2/3 views Gabbie Grady MD Work Phone: Start: 10-06-2021 End: 10-06-2021 Visual field xm uni/bi w/interp extended exam Yoandy Mtz MD Work Phone: Start: 08-26-2021 Mammography Jess Camp MD Work Phone: Start: 08-02-2021 Adult depression scr eening assessment Jess Camp MD Work Phone: Start: 08-02-2021 Colonoscopy Jess Camp MD Work Phone: Start: 06-10-2020 Radex spine lumbosac ral 2/3 views Gabbie Grady MD Work Phone: Start: 05-03-2020 History of repair of musculotendinous cuff of shoulder S/P right rotator cuff repair Jess Camp MD Work Phone: Start: 04-10-2019 Antibody screen Comment on above: Performed By: #### T &S #### [place] [address] H/O: hysterectomy History of hysterectomy Dr. Gabbie Grady Work Phone: H/O: surgery Hx of bladder re pair surgery Dr. Gabbie Grady Work Phone: History of repair of musculotendinous cuff of shoulder S/P left rotator cuff repair Vito Ben PA-C Work Phone: History of repair of musculotendinous cuff of shoulder S/P left rotator cuff repair Wilmar Vivar MD Work Phone: History of repair of musculotendinous cuff of shoulder S/P left rotator cuff repair Kian Aceves PT Work Phone: History of repair of musculotendinous cuff of shoulder S/P left rotator cuff repair Wilmar Vivar MD Work Phone: History of repair of musculotendinous cuff of shoulder S/P left rotator cuff repair Wilmar Vivar MD Work Phone: History of repair of musculotendinous cuff of shoulder S/P left rotator cuff repair Vito Ben PA-C Work Phone: History of repair of musculotendinous cuff of shoulder S/P left rotator cuff repair Kian Aceves PT Work Phone: History of repair of musculotendinous cuff of shoulder S/P left rotator cuff repair Vito Ben PA-C Work Phone: History of repair of musculotendinous cuff of shoulder S/P left rotator cuff repair Rachel Stevens [employer] Work Phone: History of repair of musculotendinous cuff of shoulder S/P left rotator cuff repair Vito Ben PA-C Work Phone: History of repair of musculotendinous cuff of shoulder S/P left rotator cuff repair Wilmar Vivar MD Work Phone: History of repair of musculotendinous cuff of shoulder S/P left rotator cuff repair Kian Aceves PT Work Phone: History of repair of musculotendinous cuff of shoulder S/P left rotator cuff repair Vito Ben PA-C Work Phone: History of repair of musculotendinous cuff of shoulder S/P left rotator cuff repair Rachel Stevens [employer] Work Phone: History of repair of musculotendinous cuff of shoulder S/P left rotator cuff repair Kian Ketan PT Work Phone: History of repair of musculotendinous cuff of shoulder S/P left rotator cuff repair Kian Ketan PT Work Phone: History of repair of musculotendinous cuff of shoulder S/P left rotator cuff repair Kian Ketan PT Work Phone: History of repair of musculotendinous cuff of shoulder S/P left rotator cuff repair Kian Ketan PT Work Phone: History of repair of musculotendinous cuff of shoulder S/P left rotator cuff repair Kian Ketan PT Work Phone: History of repair of musculotendinous cuff of shoulder S/P left rotator cuff repair Kian Ketan PT Work Phone: History of repair of musculotendinous cuff of shoulder S/P left rotator cuff repair Vito Contreras PA-C Work Phone: History of repair of musculotendinous cuff of shoulder S/P left rotator cuff repair Kian Ketan PT Work Phone: History of repair of musculotendinous cuff of shoulder S/P left rotator cuff repair Kian Ketan PT Work Phone: History of repair of musculotendinous cuff of shoulder S/P left rotator cuff repair Kian Ketan PT Work Phone: None (qualifier value) RADHA SALAS MD Plan of Treatment Date Care Activity Detail Author Start: 2036 RSV Vaccine (1 - 1-d ose 75+ series) RSV Vaccine (1 - 1-dose 75+ series) [facility] Start: 09-30-2027 Screening for malign ant neoplasm of colon [facility] Start: 03-14-2027 Urine microalbumin profile [facility] Start: 01-07-2026 Hepatitis B screening Urine Al bumin:Creatinine Ratio [facility] Start: 01-07-2026 Screening for malign ant neoplasm of breast Mammogram Screening [facility] Start: 12-25-2025 Annual PCP Team Supervisor [place] Disease Visit Annual PCP Team Chronic Disease Visit [facility] Start: 12-22-2025 Hepatitis B surface antibody level LDL Cholesterol [facility] Start: 12-13-2025 Glaucoma screening Dilated Retinal E xam [facility] Start: 10-25-2025 Diabetic foot examination Diabetic Foot Exam [facility] Start: 09-02-2025 BP Controlled (<130/80) BP Controlle d (<130/80) [facility] Start: 07-03-2025 Annual PCP Team Supervisor [place] Disease Visit Annual PCP Team Chronic Disease Visit [facility] Start: 07-03-2025 Covid-19 Vaccine ( season) Covid-19 Vaccine ( season) [facility] Comment on above: Postponed from 03/09 (Declined at this time) Start: 07-03-2025 Hepatitis B surface antibody level LDL Cholesterol [facility] Start: 07-03-2025 Pneumococcal Vaccine : 50+ (1 of 2 - PCV) Pneumococcal Vaccine: 50+ (1 of 2 - PCV) [facility] Comment on above: Postponed from 03/08 (Declined at this time) Start: 07-03-2025 RSV Vaccine (1 - Ris k 60-74 years 1-dose series) RSV Vaccine (1 - Risk 60-74 years 1-dose series) [facility] Comment on above: Postponed from 03/08 (Declined at this time) Start: 07-03-2025 Shingrix Vaccine (1 of 2) Shingrix Vaccine (1 of 2) [facility] Comment on above: Postponed from 03/08 (Declined at this time) Start: 06-26-2025 End: 09-25-2025 25-hydroxyvitamin D3 [Mass/volume] in Serum or Plasma VITAMIN D 25 HYDROXY Lab Routine Vitamin D deficiency Expected: 06/26/2025 (Approximate), Expires: 09/25/2025 [facility] Comment on above: Expected: 06/26/2025 (Approximate), Expires: 09/25/2025 Start: 06-26-2025 End: 09-25-2025 C reactive protein [Mass/volume] in Serum or Plasma C-REACTIVE PROTEIN Lab Routine Temporal arteritis (HCC) Expected: 06/26/2025 (Approximate), Expires: 09/25/2025 [facility] Comment on above: Expected: 06/26/2025 (Approximate), Expires: 09/25/2025 Start: 06-26-2025 End: 09-25-2025 Comprehensive metabolic 2000 panel - Serum or Plasma COMPREHENSIVE METABOLIC PANEL Lab Routine Mixed hyperlipidemia HYPERTENSION Controlled type 2 diabetes mellitus without complication, without long-term current use of insulin (HCC) Expected: 06/26/2025 (Approximate), Expires: 09/25/2025 [facility] Comment on above: Expected: 06/26/2025 (Approximate), Expires: 09/25/2025 Start: 06-26-2025 End: 09-25-2025 Erythrocyte sedimentation rate SEDIMENTATION RATE, WESTERGREN Lab Routine Temporal arteritis (HCC) Expected: 06/26/2025 (Approximate), Expires: 09/25/2025 [facility] Comment on above: Expected: 06/26/2025 (Approximate), Expires: 09/25/2025 Start: 06-26-2025 End: 09-25-2025 Hemoglobin A1c in Blood HEMOGLOBIN A1C Lab Routine Mixed hyperlipidemia HYPERTENSION Controlled type 2 diabetes mellitus without complication, without long-term current use of insulin (HCC) Expected: 06/26/2025 (Approximate), Expires: 09/25/2025 [facility] Comment on above: Expected: 06/26/2025 (Approximate), Expires: 09/25/2025 Start: 06-26-2025 End: 09-25-2025 Iron and Iron binding capacity panel - Serum or Plasma IRON AND TIBC Lab Routine Family history of hemochromatosis Expected: 06/26/2025 (Approximate), Expires: 09/25/2025 [facility] Comment on above: Expected: 06/26/2025 (Approximate), Expires: 09/25/2025 Start: 06-26-2025 End: 09-25-2025 Lipid 1996 panel - Serum or Plasma LIPID PANEL, FASTING Lab Routine Mixed hyperlipidemia HYPERTENSION Controlled type 2 diabetes mellitus without complication, without long-term current use of insulin (HCC) Expected: 06/26/2025 (Approximate), Expires: 09/25/2025 [facility] Comment on above: Expected: 06/26/2025 (Approximate), Expires: 09/25/2025 Start: 06-23-2025 Hemoglobin A1c measurement HbA1C [facility] Start: 04-10-2025 Annual PCP Team Supervisor [place] Disease Visit Annual PCP Team Chronic Disease Visit [facility] Start: 03-09-2025 Influenza vaccination [facility] Start: 01-07-2025 Giardia Antigen (YULIANA) Giardia Antige n (YULIANA) [facility] Start: 01-07-2025 Ova and Parasites Ova and Parasites [facility] Start: 01-07-2025 End: 01-07-2025 Patient encounter procedure 01/07/2025 10:50 AM EDT Appointment Mammogram [address] [place] [address] Dx: Encounter for screening mammogram for malignant neoplasm of breast [Z12.31] Mammogram Comment on above: Dx: Encounter for sc reening mammogram for malignant neoplasm of breast [Z12.31] Start: 01-07-2025 [facility] Start: 01-05-2025 Influenza vaccination Influenza Vacc ine (#1) [facility] Comment on above: Postponed from 03/09 (Declined at this time) Start: 01-01-2025 End: 04-02-2025 C reactive protein [Mass/volume] in Serum or Plasma C-REACTIVE PROTEIN Lab Routine Temporal arteritis (HCC) Expected: 01/01/2025 (Approximate), Expires: 04/02/2025 [facility] Comment on above: Expected: 01/01/2025 (Approximate), Expires: 04/02/2025 Start: 01-01-2025 End: 04-02-2025 CBC W Auto Differential panel - Blood COMPLETE BLOOD COUNT AND DIFFERENTIAL Lab Routine HYPERTENSION Expected: 01/01/2025 (Approximate), Expires: 04/02/2025 [facility] Comment on above: Expected: 01/01/2025 (Approximate), Expires: 04/02/2025 Start: 01-01-2025 End: 04-02-2025 Comprehensive metabolic 2000 panel - Serum or Plasma COMPREHENSIVE METABOLIC PANEL Lab Routine Controlled type 2 diabetes mellitus without complication, without long-term current use of insulin (HCC) HYPERTENSION Mixed hyperlipidemia Expected: 01/01/2025 (Approximate), Expires: 04/02/2025 [facility] Work Phone: Comment on above: Expected: 01/01/2025 (Approximate), Expires: 04/02/2025 Start: 01-01-2025 End: 04-02-2025 Erythrocyte sedimentation rate SEDIMENTATION RATE, WESTERGREN Lab Routine Temporal arteritis (HCC) Expected: 01/01/2025 (Approximate), Expires: 04/02/2025 [facility] Comment on above: Expected: 01/01/2025 (Approximate), Expires: 04/02/2025 Start: 01-01-2025 End: 04-02-2025 Ferritin [Mass/volume] in Serum or Plasma FERRITIN Lab Routine Essential hypertension, benign Fatigue, unspecified type Family history of hemochromatosis Expected: 01/01/2025 (Approximate), Expires: 04/02/2025 [facility] Comment on above: Expected: 01/01/2025 (Approximate), Expires: 04/02/2025 Start: 01-01-2025 End: 04-02-2025 Hemoglobin A1c in Blood HEMOGLOBIN A1C Lab Routine Controlled type 2 diabetes mellitus without complication, without long-term current use of insulin (HCC) Expected: 01/01/2025 (Approximate), Expires: 04/02/2025 [facility] Comment on above: Expected: 01/01/2025 (Approximate), Expires: 04/02/2025 Start: 01-01-2025 Hemoglobin A1c measurement HbA1C [facility] Start: 01-01-2025 End: 04-02-2025 Iron and Iron binding capacity panel - Serum or Plasma IRON AND TIBC Lab Routine Essential hypertension, benign Fatigue, unspecified type Family history of hemochromatosis Expected: 01/01/2025 (Approximate), Expires: 04/02/2025 [facility] Work Phone: Comment on above: Expected: 01/01/2025 (Approximate), Expires: 04/02/2025 Start: 01-01-2025 End: 04-02-2025 Lipid 1996 panel - Serum or Plasma LIPID PANEL BASIC Lab Routine Controlled type 2 diabetes mellitus without complication, without long-term current use of insulin (HCC) HYPERTENSION Mixed hyperlipidemia Expected: 01/01/2025 (Approximate), Expires: 04/02/2025 [facility] Comment on above: Expected: 01/01/2025 (Approximate), Expires: 04/02/2025 Start: 01-01-2025 End: 04-02-2025 Microalbumin/Creatinine [Mass Ratio] in Urine ALBUMIN/CREATININE RATIO, URINE Lab Routine Controlled type 2 diabetes mellitus without complication, without long-term current use of insulin (HCC) Expected: 01/01/2025 (Approximate), Expires: 04/02/2025 [facility] Comment on above: Expected: 01/01/2025 (Approximate), Expires: 04/02/2025 Start: 01-01-2025 End: 01-01-2025 Patient encounter procedure 01/01/2025 1:20 PM EDT Office Visit [facility] [address] [place], [place] [id number] Gabbie Grady MD [address] [place], [place] [id number] 6 mo f/u [facility] [place] Comment on above: 6 mo f/u Start: 12-29-2024 End: 12-29-2024 ambulatory 12/29/2024 7:00 AM EDT Results Only [facility] [address] [place] [address] LABS [facility] Comment on above: LABS Start: 12-28-2024 Annual PCP Team Supervisor [place] Disease Visit Annual PCP Team Chronic Disease Visit [facility] Start: 12-28-2024 Anxiety Screening Anxiety Screening [facility] Start: 12-28-2024 BP Controlled (<130/80) BP Controlle d (<130/80) [facility] Start: 12-28-2024 Depression Screening Depression Scre ening [facility] Start: 12-23-2024 Hepatitis B surface antibody level LDL Cholesterol [facility] Start: 11-25-2024 Screening for malign ant neoplasm of breast Mammogram Screening [facility] Start: 11-24-2024 End: 11-24-2024 Patient encounter procedure Cat Scan Comment on above: LCS Start: 09-29-2024 Colonoscopy w/biopsy single/multiple COLONOSCOPY AND BIOPSY [facility] Start: 09-29-2024 Patient discharge [facility] Start: 09-05-2024 End: 12-05-2024 Potassium [Moles/volume] in Serum or Plasma POTASSIUM Lab Routine Adverse drug interaction with prescription medication Expected: 09/05/2024, Expires: 12/05/2024 [facility] Work Phone: Comment on above: Expected: 09/05/2024 , Expires: 12/05/2024 Start: 09-05-2024 End: 09-05-2024 ambulatory 09/05/2024 9:45 AM EST [facility] [address] [place] [address] [facility] Start: 08-02-2024 Colonoscopy COLONOSCOPY [facility] Start: 08-02-2024 COLORECTAL CANCER SCREENING COLORECTAL CANCER SCREENING [facility] Start: 08-02-2024 Screening for malign ant neoplasm of colon [facility] Start: 07-04-2024 Annual PCP Team Supervisor [place] Disease Visit Annual PCP Team Chronic Disease Visit [facility] Start: 07-03-2024 End: 07-03-2024 Patient encounter procedure 07/03/2024 1:20 PM EST Office Visit [facility] [address] [facility] [place] [address] Gabbie Grady MD [address] [facility] [place] [address] DM, BP, labs, meds [facility] Comment on above: DM, BP, labs, meds Start: 06-30-2024 End: 06-30-2024 Patient encounter procedure [facility] Comment on above: 6 month follow up Start: 06-30-2024 End: 06-30-2024 ambulatory 06/30/2024 7:00 AM EST Results Only [facility] [address] [facility] [place] [address] [facility] Start: 06-29-2024 End: 09-28-2024 C reactive protein [Mass/volume] in Serum or Plasma C-REACTIVE PROTEIN Lab Routine Temporal arteritis (HCC) Expected: 06/29/2024 (Approximate), Expires: 09/28/2024 [facility] Comment on above: Expected: 06/29/2024 (Approximate), Expires: 09/28/2024 Start: 06-29-2024 End: 09-28-2024 CBC panel - Blood by Automated count COMPLETE BLOOD COUNT Lab Routine HYPERTENSION Expected: 06/29/2024 (Approximate), Expires: 09/28/2024 [facility] Comment on above: Expected: 06/29/2024 (Approximate), Expires: 09/28/2024 Start: 06-29-2024 End: 09-28-2024 Comprehensive metabolic 2000 panel - Serum or Plasma COMPREHENSIVE METABOLIC PANEL Lab Routine Mixed hyperlipidemia Controlled type 2 diabetes mellitus without complication, without long-term current use of insulin (HCC) Expected: 06/29/2024 (Approximate), Expires: 09/28/2024 [facility] Work Phone: Comment on above: Expected: 06/29/2024 (Approximate), Expires: 09/28/2024 Start: 06-29-2024 End: 09-28-2024 Erythrocyte sedimentation rate SEDIMENTATION RATE, WESTERGREN Lab Routine Temporal arteritis (HCC) Expected: 06/29/2024 (Approximate), Expires: 09/28/2024 [facility] Comment on above: Expected: 06/29/2024 (Approximate), Expires: 09/28/2024 Start: 06-29-2024 End: 09-28-2024 Hemoglobin A1c in Blood HEMOGLOBIN A1C Lab Routine Controlled type 2 diabetes mellitus without complication, without long-term current use of insulin (HCC) Expected: 06/29/2024 (Approximate), Expires: 09/28/2024 [facility] Comment on above: Expected: 06/29/2024 (Approximate), Expires: 09/28/2024 Start: 06-29-2024 End: 09-28-2024 Lipid 1996 panel - Serum or Plasma LIPID PANEL BASIC Lab Routine Mixed hyperlipidemia Controlled type 2 diabetes mellitus without complication, without long-term current use of insulin (HCC) Expected: 06/29/2024 (Approximate), Expires: 09/28/2024 [facility] Comment on above: Expected: 06/29/2024 (Approximate), Expires: 09/28/2024 Start: 06-24-2024 Hemoglobin A1c measurement HbA1C [facility] Start: 06-20-2024 Hepatitis B screening Urine Al bumin:Creatinine Ratio [facility] Start: 06-20-2024 Hepatitis B surface antibody level LDL Cholesterol [facility] Start: 05-08-2024 End: 05-08-2024 ambulatory 05/08/2024 3:00 PM EDT OT/PT/Speech Visit [facility] [address] [place] [address] Kian Aceves, PT [address] [place] [address] RECHECK [facility] Comment on above: RECHECK Start: 04-29-2024 End: 04-29-2024 ambulatory 04/29/2024 5:30 PM EDT OT/PT/Speech Visit [facility] [address] [place] [address] Kian Aceves, PT [address] [place] [address] S/P left rotator cuff repair [Z98.890] [facility] Comment on above: S/P left rotator cuf f repair [Z98.890] Start: 04-28-2024 End: 04-28-2024 ambulatory 04/28/2024 2:45 PM EDT OT/PT/Speech Visit [facility] [address] [place] [address] Kian Aceves, PT [address] [place] [address] S/P left rotator cuff repair [Z98.890] [facility] Comment on above: S/P left rotator cuf f repair [Z98.890] Start: 04-24-2024 End: 04-24-2024 ambulatory 04/24/2024 11:30 AM EDT OT/PT/Speech Visit [facility] [address] [place] [address] Kian Aceves, PT [address] [facility] [place] [address] S/P left rotator cuff repair [Z98.890] [facility] Comment on above: S/P left rotator cuf f repair [Z98.890] Start: 04-21-2024 End: 04-21-2024 ambulatory 04/21/2024 2:45 PM EDT OT/PT/Speech Visit [facility] [address] [place] [address] Kian Aceves, PT [address] [facility] [place] [address] S/P left rotator cuff repair [Z98.890] [facility] Comment on above: S/P left rotator cuf f repair [Z98.890] Start: 04-15-2024 End: 04-15-2024 Patient encounter procedure 04/15/2024 1:15 PM EDT Office Visit [facility] [address] [place] [address] Wilmar Vivar MD [address] [place] [address] LEFT SHOULDER SX 01/20 [facility] Comment on above: LEFT SHOULDER SX 01/06 Start: 04-14-2024 End: 04-14-2024 ambulatory 04/14/2024 2:45 PM EDT OT/PT/Speech Visit [facility] [address] [place] [address] Kian Aceves, PT [address] [facility] [place] [address] S/P left rotator cuff repair [Z98.890] [facility] Comment on above: S/P left rotator cuf f repair [Z98.890] Start: 04-10-2024 End: 04-10-2024 OT/PT/Speech Visit 04/10/2024 10:45 AM EDT OT/PT/Speech Visit [facility] [address] [place] [address] Kian Aceves, PT [address] [facility] [place] [address] PT Rehab F/U order- referral# [id number] [facility] Comment on above: PT Rehab F/U order- referral# [id number] Start: 04-04-2024 End: 04-04-2024 OT/PT/Speech Visit 04/04/2024 3:00 PM EDT OT/PT/Speech Visit [facility] [address] [place] [address] Kian Aceves, [facility] [address] [facility] [facility] [place] [id number] PT Rehab F/U order- referral# [id number] [facility] Comment on above: PT Rehab F/U order- referral# [id number] Start: 03-31-2024 End: 03-31-2024 OT/PT/Speech Visit 03/31/2024 9:15 AM EDT OT/PT/Speech Visit [facility] [address] [place] [address] Kian Aceves, PT [address] [facility] [place] [address] PT Rehab F/U order- referral# [id number] [facility] Comment on above: PT Rehab F/U order- referral# [id number] Start: 03-09-2024 Covid-19 Vaccine ( season) Covid-19 Vaccine ( season) [facility] Start: 03-09-2024 Covid-19 Vaccine ( season) Covid-19 Vaccine ( season) [facility] Start: 03-09-2024 Influenza vaccination [facility] Start: 03-04-2024 End: 03-04-2024 ambulatory 03/04/2024 2:45 PM EDT OT/PT/Speech Visit [facility] [address] [place] [address] Rachel Stevens, [employer] [address] [place] [address] S/P left rotator cuff repair [Z98.890 (ICD-10-CM)] [facility] Comment on above: S/P left rotator cuf f repair [Z98.890 (ICD-10-CM)] Start: 03-04-2024 End: 03-04-2024 Patient encounter procedure 03/04/2024 1:15 PM EDT Office Visit [facility] [address] [place], [place] [address] Wilmar Vivar MD [address] [place] [address] LEFT SHOULDER SX 01/20 [facility] Comment on above: LEFT SHOULDER SX 01/06 Start: 02-28-2024 End: 02-28-2024 ambulatory [facility] Comment on above: S/P left rotator cuf f repair [Z98.890 (ICD-10-CM)] Start: 02-19-2024 End: 02-19-2024 ambulatory 02/19/2024 11:45 AM EDT OT/PT/Speech Visit [facility] [address] [place] [address] Rachel Stevens, [employer] [address] [place] [address] S/P left rotator cuff repair [Z98.890 (ICD-10-CM)] [facility] Comment on above: S/P left rotator cuf f repair [Z98.890 (ICD-10-CM)] Start: 02-18-2024 End: 02-18-2024 ambulatory 02/18/2024 10:15 AM EDT OT/PT/Speech Visit [facility] [address] [place] [address] Rachel Stevens, [employer] [address] [place] [address] S/P left rotator cuff repair [Z98.890 (ICD-10-CM)] [facility] Comment on above: S/P left rotator cuf f repair [Z98.890 (ICD-10-CM)] Start: 02-12-2024 End: 02-12-2024 ambulatory 02/12/2024 2:15 PM EDT OT/PT/Speech Visit [facility] [address] [place] [address] Kian Aceves, PT [address] [place], [place] [id number] S/P left rotator cuff repair [Z98.890 (ICD-10-CM)] [facility] Comment on above: S/P left rotator cuf f repair [Z98.890 (ICD-10-CM)] Start: 02-11-2024 End: 02-11-2024 ambulatory 02/11/2024 12:15 PM EDT OT/PT/Speech Visit [facility] [address] [place] [address] Kian Aceves, PT [address] [place], [place] [address] S/P left rotator cuff repair [Z98.890 (ICD-10-CM)] [facility] Comment on above: S/P left rotator cuf f repair [Z98.890 (ICD-10-CM)] Start: 02-05-2024 End: 02-05-2024 ambulatory 02/05/2024 6:15 PM EDT OT/PT/Speech Visit [facility] [address] [place] [address] Kian Aceves, PT [address] [place], [place] [id number] S/P left rotator cuff repair [Z98.890 (ICD-10-CM)] [facility] Comment on above: S/P left rotator cuf f repair [Z98.890 (ICD-10-CM)] Start: 02-05-2024 End: 02-05-2024 Patient encounter procedure 02/05/2024 2:45 PM EDT Office Visit [facility] [address] [place] [address] Wilmar Vivar MD [address] [place] [address] LEFT SHOULDER SX 01/20 [facility] Comment on above: LEFT SHOULDER SX 01/06 5 Start: 02-04-2024 End: 02-04-2024 ambulatory 02/04/2024 12:30 PM EDT OT/PT/Speech Visit [facility] [address] [place] [address] Rachel Stevens, [employer] [address] [place] [address] S/P left rotator cuff repair [Z98.890 (ICD-10-CM)] [facility] Comment on above: S/P left rotator cuf f repair [Z98.890 (ICD-10-CM)] Start: 01-28-2024 End: 01-28-2024 ambulatory 01/28/2024 11:30 AM EDT OT/PT/Speech Visit [facility] [address] [place] [address] Kian Aceves, PT [address] [place] [address] left shoulder [facility] Comment on above: left shoulder Start: 01-21-2024 End: 01-21-2024 Admission to same day surgery center [facility] Comment on above: ARTHROSCOPY SHOULDER BICEPS TENODESIS Start: 01-21-2024 End: 01-21-2024 Arthroscopy shoulder biceps tenodesis [facility] Start: 01-21-2024 Subsequent hospital visit by physician BRANDYN FERRER Comment on above: Bicipital tendinitis , left [M75.22] Start: 01-17-2024 End: 01-17-2024 ambulatory 01/17/2024 1:00 PM EDT PAT Pre Surgical Testing [address] [place] [address] ARTHROSCOPY SHOULDER BICEPS TENODESIS Pre Surgical Testing Comment on above: ARTHROSCOPY SHOULDER BICEPS TENODESIS Start: 01-07-2024 End: 01-07-2024 Patient encounter procedure Mammography Comment on above: [facility] Start: 12-29-2023 End: 12-29-2023 Patient encounter procedure 12/29/2023 10:40 AM EDT Office Visit [facility] [address] [facility] [place] [address] aGbbie Grady MD [address] [facility] [place] [address] Follow Up [facility] Comment on above: Follow Up Start: 12-24-2023 End: 12-24-2023 ambulatory 12/24/2023 7:00 AM EDT Results Only [facility] [address] [place] [address] Controlled type 2 diabetes mellitus without complication, without long-term current use of insulin (HCC) [E11.9]Mixed hyperlipidemia [E78.2]Temporal arteritis (HCC) [M31.6] Vitamin D deficiency [E55.9]Neuropathy [G62.9] [facility] Comment on above: Controlled type 2 di abetes mellitus without complication, without long-term current use of insulin (HCC) [E11.9]Mixed hyperlipidemia [E78.2]Temporal arteritis (HCC) [M31.6] Vitamin D deficiency [E55.9]Neuropathy [G62.9] Start: 12-22-2023 3 comp foot exam completed DIABETIC FOOT EXAM [facility] Start: 12-22-2023 ANNUAL PCP TEAM CAMPUS RE[employer]ING [employer]NSH[employer] MERY DISEASE VISIT ANNUAL PCP TEAM CHRONIC DISEASE VISIT [facility] Start: 12-22-2023 BP CONTROLLED (<130/80) BP CONTROLLE D (<130/80) [facility] Start: 12-22-2023 Diabetic foot examination Diabetic Foot Exam [facility] Start: 12-20-2023 Hemoglobin A1c measurement HbA1C [facility] Start: 12-19-2023 Hepatitis B surface antibody level LDL CHOLESTEROL [facility] Start: 12-04-2023 End: 12-04-2023 Patient encounter procedure 12/04/2023 2:15 PM EDT Office Visit [facility] [address] [place], [place] [id number] Wilmar Vivar MD [address] [place], [place] [id number] FU MRI LT SHLDR. MRI:11/26/23 [facility] Comment on above: FU MRI LT SHLDR. MRI :11/26/23 Start: 11-26-2023 Subsequent hospital visit by physician 11/26/2023 1:00 PM EDT Hospital Encounter Radiology [address] [place] [address] Biceps tendonitis on left [M75.22] Radiology Comment on above: Biceps tendonitis on left [M75.22] Start: 11-26-2023 End: 11-26-2023 Patient encounter procedure Radiology Comment on above: SHLDR- LEFT WO Start: 11-19-2023 End: 11-19-2023 Patient encounter procedure 11/19/2023 2:45 PM EDT Office Visit Orthopaedics [address] [place] [address] Tom Soriano MD [address] [place] [address] Left shoulder pain - possible cortizone and mri Orthopaedics Comment on above: Left shoulder pain - possible cortizone and mri Start: 11-10-2023 End: 12-09-2023 CT LUNG SCREEN WO IVCON CT LUNG SCREEN WO IVCON Radiology Routine Encounter for screening for lung cancer Former tobacco use Expected: 11/10/2023, Expires: 12/09/2023 [facility] Work Phone: Comment on above: Expected: 11/10/2023 , Expires: 12/09/2023 Start: 11-08-2023 Influenza vaccination LUNG CANCER [facility] Start: 11-08-2023 Screening for malign ant neoplasm of lung Lung Cancer Screening [facility] Start: 10-30-2023 End: 10-30-2023 Patient encounter procedure 10/30/2023 2:45 PM EDT Office Visit [facility] [address] [place] [address] Wilmar Vivar MD [address] [place], [place] [phone] left shoulder pain- discuss surgery [facility] Comment on above: left shoulder pain- discuss surgery Start: 10-18-2023 Mammography [facility] Start: 10-18-2023 Screening for malign ant neoplasm of breast Mammogram Screening [facility] Start: 07-09-2023 Behavioral Health Screening Behavioral Health Screening [facility] Start: 07-09-2023 Depression Assessment Depression Ass essment [facility] Start: 06-30-2023 ANNUAL PCP TEAM CAMPUS [employer] MERY DISEASE VISIT ANNUAL PCP TEAM CHRONIC DISEASE VISIT [facility] Start: 06-22-2023 End: 08-22-2023 25-hydroxyvitamin D3 [Mass/volume] in Serum or Plasma VITAMIN D 25 HYDROXY Lab Routine Vitamin D deficiency Memory change Fatigue, unspecified type Expected: 06/22/2023 (Approximate), Expires: 08/22/2023 [facility] Work Phone: Comment on above: Expected: 06/22/2023 (Approximate), Expires: 08/22/2023 Start: 06-22-2023 End: 08-22-2023 ALBUMIN/CREAT RATIO RND UR ALBUMIN/CREAT RATIO RND UR Lab Routine Controlled type 2 diabetes mellitus without complication, without long-term current use of insulin (HCC) Expected: 06/22/2023 (Approximate), Expires: 08/22/2023 [facility] Work Phone: Comment on above: Expected: 06/22/2023 (Approximate), Expires: 08/22/2023 Start: 06-22-2023 End: 09-21-2023 C reactive protein [Mass/volume] in Serum or Plasma C-REACTIVE PROTEIN (CRP) Lab Routine Temporal arteritis (HCC) Expected: 06/22/2023 (Approximate), Expires: 09/21/2023 [facility] Work Phone: Comment on above: Expected: 06/22/2023 (Approximate), Expires: 09/21/2023 Start: 06-22-2023 End: 08-22-2023 CBC W Auto Differential panel - Blood CBC + DIFF Lab Routine Fibromyalgia Neuropathy Memory change Fatigue, unspecified type Expected: 06/22/2023 (Approximate), Expires: 08/22/2023 [facility] Work Phone: Comment on above: Expected: 06/22/2023 (Approximate), Expires: 08/22/2023 Start: 06-22-2023 End: 08-22-2023 Cholesterol in LDL [Mass/volume] in Serum or Plasma LDL CHOLESTEROL DIR Lab Routine Mixed hyperlipidemia Expected: 06/22/2023 (Approximate), Expires: 08/22/2023 [facility] Work Phone: Comment on above: Expected: 06/22/2023 (Approximate), Expires: 08/22/2023 Start: 06-22-2023 End: 08-22-2023 Cobalamin (Vitamin B12) [Mass/volume] in Serum or Plasma VITAMIN B12 BLOOD Lab Routine Memory change Fatigue, unspecified type Expected: 06/22/2023 (Approximate), Expires: 08/22/2023 [facility] Work Phone: Comment on above: Expected: 06/22/2023 (Approximate), Expires: 08/22/2023 Start: 06-22-2023 End: 08-22-2023 Comprehensive metabolic 2000 panel - Serum or Plasma COMP METABOLIC PANEL Lab Routine Controlled type 2 diabetes mellitus without complication, without long-term current use of insulin (HCC) Mixed hyperlipidemia Expected: 06/22/2023 (Approximate), Expires: 08/22/2023 [facility] Work Phone: Comment on above: Expected: 06/22/2023 (Approximate), Expires: 08/22/2023 Start: 06-22-2023 End: 09-21-2023 Erythrocyte sedimentation rate SED RATE WESTERGREN Lab Routine Temporal arteritis (HCC) Expected: 06/22/2023 (Approximate), Expires: 09/21/2023 [facility] Work Phone: Comment on above: Expected: 06/22/2023 (Approximate), Expires: 09/21/2023 Start: 06-22-2023 End: 08-22-2023 Hemoglobin A1c in Blood HGB A1C Lab Routine Controlled type 2 diabetes mellitus without complication, without long-term current use of insulin (HCC) Expected: 06/22/2023 (Approximate), Expires: 08/22/2023 [facility] Work Phone: Comment on above: Expected: 06/22/2023 (Approximate), Expires: 08/22/2023 Start: 06-22-2023 End: 08-22-2023 Lipid 1996 panel - Serum or Plasma LIPID PANEL BASIC Lab Routine Mixed hyperlipidemia Expected: 06/22/2023 (Approximate), Expires: 08/22/2023 [facility] Work Phone: Comment on above: Expected: 06/22/2023 (Approximate), Expires: 08/22/2023 Start: 06-20-2023 Hepatitis B surface antibody level LDL CHOLESTEROL [facility] Start: 06-19-2023 Hemoglobin A1c/Hemoglobin.total in Blood HBA1C [facility] Start: 05-04-2023 ANNUAL PCP TEAM CAMPUS [employer] MERY DISEASE VISIT ANNUAL PCP TEAM CHRONIC DISEASE VISIT [facility] Start: 03-09-2023 Covid-19 Vaccine ( season) Covid-19 Vaccine () [facility] Start: 03-09-2023 Influenza vaccination C [facility] Start: 01-20-2023 ANNUAL PCP TEAM CAMPUS [employer] MERY DISEASE VISIT ANNUAL PCP TEAM CHRONIC DISEASE VISIT [facility] Start: 12-29-2022 ANNUAL PCP TEAM CAMPUS [employer] INTERNSH[employer] MERY DISEASE VISIT ANNUAL PCP TEAM CHRONIC DISEASE VISIT [facility] Start: 12-29-2022 BP CONTROLLED (<130/80) BP CONTROLLE D (<130/80) [facility] Start: 12-29-2022 End: 02-28-2023 CBC panel - Blood by Automated count CBC Lab Routine HYPERTENSION Expected: 12/29/2022 (Approximate), Expires: 02/28/2023 [facility] Work Phone: Comment on above: Expected: 12/29/2022 (Approximate), Expires: 02/28/2023 Start: 12-29-2022 End: 02-28-2023 Cobalamin (Vitamin B12) [Mass/volume] in Serum or Plasma VITAMIN B12 BLOOD Lab Routine Fatigue, unspecified type Expected: 12/29/2022 (Approximate), Expires: 02/28/2023 [facility] Work Phone: Comment on above: Expected: 12/29/2022 (Approximate), Expires: 02/28/2023 Start: 12-29-2022 End: 02-28-2023 Comprehensive metabolic 2000 panel - Serum or Plasma COMP METABOLIC PANEL Lab Routine HYPERTENSION Mixed hyperlipidemia Controlled type 2 diabetes mellitus without complication, without long-term current use of insulin (HCC) Expected: 12/29/2022 (Approximate), Expires: 02/28/2023 [facility] Work Phone: Comment on above: Expected: 12/29/2022 (Approximate), Expires: 02/28/2023 Start: 12-29-2022 End: 02-28-2023 Hemoglobin A1c in Blood HGB A1C Lab Routine Controlled type 2 diabetes mellitus without complication, without long-term current use of insulin (HCC) Expected: 12/29/2022 (Approximate), Expires: 02/28/2023 [facility] Work Phone: Comment on above: Expected: 12/29/2022 (Approximate), Expires: 02/28/2023 Start: 12-29-2022 End: 02-28-2023 Lipid 1996 panel - Serum or Plasma LIPID PANEL BASIC Lab Routine HYPERTENSION Mixed hyperlipidemia Controlled type 2 diabetes mellitus without complication, without long-term current use of insulin (HCC) Expected: 12/29/2022 (Approximate), Expires: 02/28/2023 [facility] Work Phone: Comment on above: Expected: 12/29/2022 (Approximate), Expires: 02/28/2023 Start: 12-29-2022 End: 02-28-2023 Thyrotropin [Units/volume] in Serum or Plasma TSH BLD Lab Routine Fatigue, unspecified type Expected: 12/29/2022 (Approximate), Expires: 02/28/2023 [facility] Work Phone: Comment on above: Expected: 12/29/2022 (Approximate), Expires: 02/28/2023 Start: 12-29-2022 End: 02-28-2023 Thyroxine (T4) free [Mass/volume] in Serum or Plasma T4 FREE/FREE THYROX Lab Routine Fatigue, unspecified type Expected: 12/29/2022 (Approximate), Expires: 02/28/2023 [facility] Work Phone: Comment on above: Expected: 12/29/2022 (Approximate), Expires: 02/28/2023 Start: 12-19-2022 Hemoglobin A1c/Hemoglobin.total in Blood HBA1C [facility] Start: 12-15-2022 Hepatitis B screening URINE AL BUMIN:CREATININE RATIO [facility] Start: 12-15-2022 Hepatitis B surface antibody level LDL CHOLESTEROL [facility] Start: 09-27-2022 ANNUAL PCP TEAM CAMPUS [employer] MERY DISEASE VISIT ANNUAL PCP TEAM CHRONIC DISEASE VISIT [facility] Start: 09-27-2022 BP CONTROLLED (<130/80) BP CONTROLLE D (<130/80) [facility] Start: 09-26-2022 Hepatitis B surface antibody level LDL CHOLESTEROL [facility] Start: 08-26-2022 Mammography MAMMOGRAM [facility] Start: 08-02-2022 Adult depression screening assessment DEPRESSION SCREENING [facility] Start: 07-22-2022 3 comp foot exam completed DIABETIC FOOT EXAM [facility] Start: 07-13-2022 Glaucoma screening Dilated Retinal E xam [facility] Start: 07-13-2022 Hepatitis C antibody , confirmatory test DILATED RETINAL EXAM [facility] Start: 07-09-2022 DEPRESSION ASSESSMENT DEPRESSION ASS ESSMENT [facility] Start: 06-30-2022 End: 08-30-2022 Comprehensive metabolic 2000 panel - Serum or Plasma COMP METABOLIC PANEL Lab Routine Mixed hyperlipidemia Controlled type 2 diabetes mellitus without complication, without long-term current use of insulin (HCC) Expected: 06/30/2022 (Approximate), Expires: 08/30/2022 [facility] Work Phone: Comment on above: Expected: 06/30/2022 (Approximate), Expires: 08/30/2022 Start: 06-30-2022 End: 08-30-2022 Hemoglobin A1c in Blood HGB A1C Lab Routine Controlled type 2 diabetes mellitus without complication, without long-term current use of insulin (HCC) Expected: 06/30/2022 (Approximate), Expires: 08/30/2022 [facility] Work Phone: Comment on above: Expected: 06/30/2022 (Approximate), Expires: 08/30/2022 Start: 06-30-2022 End: 08-30-2022 Lipid 1996 panel - Serum or Plasma LIPID PANEL BASIC Lab Routine Mixed hyperlipidemia Expected: 06/30/2022 (Approximate), Expires: 08/30/2022 [facility] Work Phone: Comment on above: Expected: 06/30/2022 (Approximate), Expires: 08/30/2022 Start: 06-16-2022 Hemoglobin A1c/Hemoglobin.total in Blood HBA1C [facility] Start: 03-29-2022 Hemoglobin A1c/Hemoglobin.total in Blood HBA1C [facility] Start: 03-09-2022 Influenza vaccination C [facility] Start: 01-24-2022 HPV TESTING HPV TESTING [facility] Start: 01-24-2022 Screening for malign ant neoplasm of cervix HPV Testing [facility] Start: 01-05-2022 Influenza vaccination INFLUENZA (#1) [facility] Comment on above: Postponed from 03/09 (Declined at this time) Start: 12-15-2021 SHINGRIX VACCINE (1 of 2) SHINGRIX VACCINE (1 of 2) [facility] Comment on above: Postponed from 03/08 (Declined at this time) Start: 12-13-2021 Hepatitis B screening URINE AL BUMIN:CREATININE RATIO [facility] Start: 12-04-2021 COVID-19 VACCINE (3 - Booster for Pfizer series) COVID-19 VACCINE (3 - Booster for Pfizer series) [facility] Start: 10-17-2021 End: 09-01-2022 Bacteria identified in Urine by Culture URINE CULTURE Microbiology Routine Urinary tract infection without hematuria, site unspecified Expected: 10/17/2021, Expires: 09/01/2022 [facility] Work Phone: Comment on above: Expected: 10/17/2021 , Expires: 09/01/2022 Start: 10-17-2021 End: 09-01-2022 Urinalysis complete panel - Urine URINALYSIS, WITH MICROSCOPIC Lab Routine Urinary tract infection without hematuria, site unspecified Expected: 10/17/2021, Expires: 09/01/2022 [facility] Work Phone: Comment on above: Expected: 10/17/2021 , Expires: 09/01/2022 Start: 08-31-2021 COVID-19 VACCINE (3 - Booster for Pfizer series) COVID-19 VACCINE (3 - Booster for Pfizer series) [facility] Start: 08-31-2021 Covid-19 Vaccine (3 - Pfizer series) Covid-19 Vaccine (3 - Pfizer series) [facility] Start: 08-02-2021 Colsc flx w/rmvl of tumor polyp lesion snare tq COLONOSCOPY W/LESION REMOVAL [facility] Work Phone: Start: 08-02-2021 Egd transoral biopsy single/multiple EGD BIOPSY SINGLE/MULTIPLE [facility] Work Phone: Start: 07-09-2021 DEPRESSION ASSESSMENT DEPRESSION ASS ESSMENT [facility] Start: 06-10-2021 FECAL OCCULT BLOOD FECAL OCCULT BLOO D [facility] Start: 06-10-2021 Screening for malign ant neoplasm of colon Fecal Occult Blood [facility] Start: 2021 Hepatitis B Vaccine (1 of 3 - Risk 3-dose series) Hepatitis B Vaccine (1 of 3 - Risk 3-dose series) [facility] Start: 2021 RSV Vaccine (1 - 1-d ose 60+ series) RSV Vaccine (1 - 1-dose 60+ series) [facility] Start: 2021 RSV Vaccine (1 - Ris k 60-74 years 1-dose series) RSV Vaccine (1 - Risk 60-74 years 1-dose series) [facility] Start: 11-28-2019 BP CONTROLLED (<130/80) BP CONTROLLE D (<130/80) [facility] Start: 2016 [facility] Start: 2011 Influenza vaccination LUNG CANCER SC REENING [facility] Start: 2011 SHINGRIX VACCINE (1 of 2) SHINGRIX VACCINE (1 of 2) [facility] Start: 2006 COLOGUARD (FIT-DNA) COLOGUARD (FIT-D NA) [facility] Start: [address] [facility] Start: 2006 Screening for malign ant neoplasm of colon [facility] Start: 2006 SIGMOIDOSCOPY SIGMOIDOSCOPY [facility] Start: 1980 Pneumococcal Vaccine : 50+ (1 of 2 - PCV) Pneumococcal Vaccine: 50+ (1 of 2 - PCV) [facility] Start: 1967 PNEUMOCOCCAL (1 - PCV) PNEUMOCOCCAL (1 - PCV) [facility] Start: 1967 Pneumococcal vaccination [facility] Arthroscopy shoulder biceps tenodesis ARTHROSCOPY SHOULDER BICEPS TENODESIS Bicipital tendinitis, left [facility] Bacteria identified in Wound by Culture BACTERIAL CULTURE AND GRAM STAIN, ABSCESS AND WOUND (AEROBIC CULTURE) Microbiology Routine Perineal abscess 09/02/2024 11:23 AM EST [facility] Clostridioides difficile DNA [Presence] in Unspecified specimen by MASHA with probe detection [facility] End: 09-10-2025 CT Chest for screening WO contrast CT LUNG SCREEN WO IVCON Radiology Routine Personal history of tobacco use, presenting hazards to health 1 Occurrences starting 08/11/2024 until 09/10/2025 [facility] Work Phone: Comment on above: 1 Occurrences starti ng 08/11/2024 until 09/10/2025 End: 01-24-2026 DBT Breast - bilateral screening [facility] SCREENING W JOURDAN Radiology Routine Encounter for screening mammogram for malignant neoplasm of breast 1 Occurrences starting 12/25/2024 until 01/24/2026 [facility] Work Phone: Comment on above: 1 Occurrences starti ng 12/25/2024 until 01/24/2026 DBT Breast - bilater al screening KYLAH SCREENING W JOURDAN Radiology Routine Encounter for screening mammogram for malignant neoplasm of breast 01/07/2025 10:[address] 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 Work Phone: Comment on above: 1 Occurrences starti ng 08/10/2022 until 09/09/2023 End: 01-06-2024 ECG COMPLETE ECG COMPLETE ECG Routine HYPERTENSION 1 Occurrences starting 01/05/2023 until 01/06/2024 [facility] Work Phone: Comment on above: 1 Occurrences starti ng 01/05/2023 until 01/06/2024 Elastase.pancreatic [Presence] in Stool [facility] Giardia lamblia Ag [Presence] in Stool by Immunoassay [facility] Giardia lamblia anti gen assay [facility] Lactoferrin [Presenc e] in Stool by Immunoassay [facility] End: 10-27-2023 KYLAH SCREENING [facility] SCREENING Radiology Routine Encounter for screening mammogram for breast cancer 1 Occurrences starting 09/27/2022 until 10/27/2023 [facility] Work Phone: Comment on above: 1 Occurrences starti ng 09/27/2022 until 10/27/2023 End: 12-28-2024 MG Breast - right Diagnostic for implant KYLAH DIAGNOSTIC RIGHT Radiology Routine Abnormal mammogram 1 Occurrences starting 11/29/2023 until 12/28/2024 [facility] Comment on above: 1 Occurrences starti ng 11/29/2023 until 12/28/2024 End: 12-20-2024 MG Breast Screening KYLA[facility] SCREENING Radiology Routine Encounter for screening mammogram for breast cancer 1 Occurrences starting 11/21/2023 until 12/20/2024 [facility] Work Phone: Comment on above: 1 Occurrences starti ng 11/21/2023 until 12/20/2024 MG Breast Screening KYLAH SCREENIN G Radiology Routine Encounter for screening mammogram for breast cancer 11/26/2023 11:[address] [facility] Work Phone: End: 11-28-2024 MR Shoulder - left WO contrast MRI SHOULDER WO IVCON LEFT Radiology Routine Biceps tendonitis on left Chronic left shoulder pain 1 Occurrences starting 10/30/2023 until 11/28/2024 [facility] Work Phone: Comment on above: 1 Occurrences starti ng 10/30/2023 until 11/28/2024 MR Shoulder - left W O contrast MRI SHOULDER WO IVCON LEFT Radiology Routine Biceps tendonitis on left Chronic left shoulder pain 11/26/2023 1:[address] [facility] Work Phone: Nucleic acid assay [facility] OR parasites identification [facility] Ova OR parasites identification [facility] Patient referral [facility] Work Phone: Protein measurement [facility] PT PLAN OF CARE CERTIFICATION PT PLAN OF CARE CERTIFICATION Procedures Routine Acute midline low back pain without sciatica Ordered: 12/02/2021 [facility] Work Phone: Comment on above: Ordered: 12/02/2021 PT PLAN OF CARE CERTIFICATION PT PLAN OF CARE CERTIFICATION Procedures Routine Acute midline low back pain without sciatica Ordered: 01/05/2022 [facility] Work Phone: Comment on above: Ordered: 01/05/2022 End: 01-05-2024 US ARM ARTERIAL UNL VAS LAB US ARM ARTERIAL UNL VAS LAB Vascular Lab Routine Arterial fibromuscular dysplasia (HCC) Atherosclerosis 1 Occurrences starting 01/04/2023 until 01/05/2024 [facility] Work Phone: Comment on above: 1 Occurrences starti ng 01/04/2023 until 01/05/2024 End: 12-28-2024 US Breast - right limited US BREAST LTD RIGHT Radiology Routine Abnormal mammogram 1 Occurrences starting 11/29/2023 until 12/28/2024 [facility] Work Phone: Comment on above: 1 Occurrences starti ng 11/29/2023 until 12/28/2024 XR ANKLE GENERAL 3V AP/LAT/OBL RIGHT XR ANKLE GENERAL 3V AP/LAT/OBL RIGHT Radiology Routine Acute right ankle pain 01/20/2022 9:[address] [facility] Work Phone: End: 04-21-2024 XR FOOT GENERAL 3V AP/LAT/OBL LEFT XR FOOT GENERAL 3V AP/LAT/OBL LEFT Radiology Routine Left foot pain 1 Occurrences starting 03/23/2023 until 04/21/2024 [facility] Work Phone: Comment on above: 1 Occurrences starti ng 03/23/2023 until 04/21/2024 XR FOOT GENERAL 3V AP/LAT/OBL LEFT XR FOOT GENERAL 3V AP/LAT/OBL LEFT Radiology Routine Left foot pain 03/23/2023 11:[address] [facility] Work Phone: End: 03-27-2022 XR KNEE GENERAL 4V AP BOTH/PA BOTH/LAT/MERC LEFT [facility] Work Phone: Comment on above: 1 Occurrences starti ng 03/27/2022 until 03/27/2022 End: 11-29-2023 XR SHOULDER GENERAL 3V OR MORE AP/TRUE AP/OTHER LEFT XR SHOULDER GENERAL 3V OR MORE AP/TRUE AP/OTHER LEFT Radiology Routine Left shoulder pain, unspecified chronicity 1 Occurrences starting 10/30/2022 until 11/29/2023 [facility] Work Phone: Comment on above: 1 Occurrences starti ng 10/30/2022 until 11/29/2023 XR SHOULDER GENERAL 3V OR MORE AP/TRUE AP/OTHER LEFT XR SHOULDER GENERAL 3V OR MORE AP/TRUE AP/OTHER LEFT Radiology Routine Left shoulder pain, unspecified chronicity 10/30/2022 11:[address] [facility] Work Phone: XR TIBIA FIBULA 2V AP/LAT RIGHT XR TIBIA FIBULA 2V AP/LAT RIGHT Radiology Routine Puncture wound 01/20/2022 9:[address] [facility] Work Phone: [facility] Immunizations Immunization Date Immunization Notes Care Provider Simeon contreras 07-06-2021 COVID-19 vaccine, ag e 12+ yr (PFIZER-BIONTECH - PURPLE TOP) Jess Camp MD Work Phone: [facility] Work Phone: 03-29-2021 COVID-19 vaccine, ag e 12+ yr (PFIZER-BIONTECH - PURPLE TOP) Jess Camp MD Work Phone: [facility] 03-14-2017 tetanus toxoid, redu denisse diphtheria toxoid, and acellular pertussis vaccine, adsorbed Jess Camp MD Work Phone: [facility] 03-14-2017 influenza virus vaccine, unspecified formulation Cheng Mariscal Work Phone: [facility] 09-12-2006 tuberculin skin test ; purified protein derivative solution, intradermal Vito Contreras PA-C Work Phone: [facility] Payers Date Payer Category Payer Self-pay [id number] 2022 Medicaid [id number] 2021 Medicaid [place] [employer] [place] [employer] [id number] 2021-Present [phone] [address] [place] [address] Medicaid [id number] 2021 Medicaid [id number] [address] Government ([address] [facility] or Medicaid) MINUTEMEN HR RISK MGMT [id number] 2008 Unknown [id number] 1961 Unknown [id number] Unknown [id number] Unknown SELF PAY INSURANCE [id number] Unknown [id number] Unknown [id number] Unknown [id number] Unknown [id number] Unknown [id number] Unknown [id number] Unknown [id number] Unknown [id number] Social History Date Type Detail Facility Start: 10-23-2013 End: 03-04-2024 Tobacco smoking status NHIS Ex-smoker [facility] Start: 03-14-1979 End: 03-14-2014 History of tobacco use Current smoker [facility] Start: 03-14-1979 End: 03-14-2014 History of tobacco use Cigarette Smoker [facility] Start: 10-23-2013 End: 12-21-2022 Cigarettes smoked current (pack per day) - Reported 1 [facility] Start: 10-23-2013 End: 03-04-2024 Tobacco use and exposure Smokeless tobacco non-user [facility] Start: 09-27-2021 End: 12-25-2024 Alcohol intake Current drinker of alcohol (finding) [facility] Start: 04-19-2020 End: 06-01-2022 History SDOH Alcohol Frequency 2 [facility] Start: 04-19-2020 End: 06-01-2022 History SDOH Alcohol Std Drinks 1 [facility] Start: 03-14-2017 History SDOH Alcohol Comment rarely [facility] Start: 12-11-2019 End: 06-01-2022 History SDOH Social Connections Phone 5 [facility] Start: 06-04-2020 History SDOH Social Connections Get Together 98 [facility] Start: 06-04-2020 End: 06-01-2022 History SDOH Physical Activity DPW 0 [facility] Start: 12-11-2019 Education 15 [facility] Start: 04-19-2020 End: 05-04-2022 Tobacco Comment occasional [facility] Start: 1960 Sex Assigned At Female [facility] Start: 05-11-2020 End: 05-04-2022 Exposure to SARS-CoV-2 (event) Not sure [facility] Start: 09-15-2021 End: 05-24-2022 Tobacco smoking status NHIS Unknown if ever smoked [facility] Start: 12-04-2021 End: 12-14-2021 Exposure to SARS-CoV-2 (event) Unable to assess [facility] Work Phone: Sex Assigned At Sex [facility] Start: 06-01-2022 History SDOH Stress 3 [facility] Start: 05-31-2022 End: 12-21-2022 Social connection and isolation panel [facility] Do you belong to any clubs or organizations such as islam groups, unions, fraternal or athletic groups, or school groups? No [facility] Are you now , , , , never or living with a partner? [facility] How often to you hav e a drink containing alcohol? Monthly or less [facility] How many standard dr inks containing alcohol do you have on a typical day? 1 or 2 [facility] How often do you hav e 6 or more drinks on 1 occasion? Never [facility] How hard is it for y ou to pay for the very basics like food, housing, medical care, and heating Somewhat hard [facility] Start: 06-09-2012 Adult Depression Screening Assessment 0 [facility] Work Phone: Do you feel stress - tense, restless, nervous, or anxious, or unable to sleep at night because your mind is troubled all the time - these days [OSQ] To some extent [facility] (I/We) worried wheth er (my/our) food would run out before (I/we) got money to buy more. Sometimes true [facility] Start: 10-03-2018 Gender identity Identifies as female gender (finding) [facility] Start: 10-03-2018 Sexual orientation Heterosexual (finding) [facility] Do you feel stress - tense, restless, nervous, or anxious, or unable to sleep at night because your mind is troubled all the time - these days [OSQ] Only a little [facility] How hard is it for y ou to pay for the very basics like food, housing, medical care, and heating Very hard [facility] In the past 12 month s, was there a time when you were not able to pay the mortgage or rent on time? Yes [facility] Start: 09-29-2024 Sex Female (finding) [facility] Has the ticckle, or [employer] threatened to shut off services in your home in past 12Mo Already shut off [facility] (I/We) worried wheth er (my/our) food would run out before (I/we) got money to buy more. Often true [facility] Medical Equipment Procedure Code Equipment Code Equipment Origin al Text Equipment Identifier Dates Cement Simplex B one High Viscosity - [id number] Start: 08-22-2017 Component Triath miguelito 4 Femoral Cruciate Retain Cemented Knee Right - [id number] Start: 08-22-2017 Insert Triathlon 4 X3 13mm Tibial Condylar Stabilized Knee - [id number] Start: 08-22-2017 Component Triath miguelito 32mm Asymmetric X3 10mm Patellar Knee - [id number] Start: 08-22-2017 Baseplate Triath miguelito 4 Tibial Primary Cement Knee - [id number] Start: 08-22-2017 [place] Arthrex Swivelock C Tigerwire 4.75mm 2 Black Blue White Biocomposite - [id number] Start: 01-24-2021 [id number], [id number], [id number], [id number], [id number], [id number], [id number] Start: 09-30-2018 End: 01-20-2025 Comment on above: Use 4-6 times daily to check blood sugar. Dx:E11.9 insulin:No Test blood sugar(s) one times daily. Dx: Type 2 DM - Controlled E11.9 Insulin: No Mesh Prolene Fla t Square 6x6in Surgical Customizable Knit Nonabsorbable - [id number] Start: 08-30-2022 Mesh Prolene Fla t Square 6x6in Surgical Customizable Knit Nonabsorbable - [id number] Start: 08-30-2022 Kit Fiberloop 3. 2mm Suture Drill Pin Needle Shoehorn Cannula Proximal - [id number] Start: 01-21-2024 [place] Arthrex Swivelock C Tigerwire 4.75mm 2 Black Blue White Biocomposite - [id number] Start: 01-21-2024 [place] Arthrex Swivelock C Tigerwire 4.75mm 2 Black Blue White Biocomposite - [id number] Start: 01-21-2024 Goals Date Patient Goal Desired Activity /State Personal health goal Functional Status Date Assessment Result Facility 04-26-2024 Functional Status Independent [facility] [place] 04-26-2024 Functional Status ID band on, Allergy Band on [facility] 01-17-2022 Functional Status Ambulating in [facility] 09-20-2021 Are you deaf, or do you have serious difficulty hearing No 09/20/2021 10:26 AM Jose Whitt RN No [facility] 09-20-2021 Are you blind, or do you have serious difficulty seeing, even when wearing glasses No 09/20/2021 10:26 AM Jose Whitt RN No [facility] 09-20-2021 Do you have serious difficulty walking or climbing stairs No 09/20/2021 10:26 AM Jose Whitt RN No [facility] 09-20-2021 Do you have difficul ty dressing or bathing No 09/20/2021 10:26 AM Jose Whitt RN No [facility] 09-20-2021 Because of a physica l, mental, or emotional condition, do you have difficulty doing errands alone such as visiting a physician's office or shopping No 09/20/2021 10:26 AM Jose Whitt RN No [facility] Mental Status Date Assessment Result Facility 09-29-2024 Cognitive function Voice/Name [facility] Work Phone: 04-26-2024 Mental Status Orientation Oriented x 4 [facility] [place] 04-26-2024 [facility] 01-17-2022 Mental Status Orientation Oriented x 4 [facility] [place] 09-20-2021 Because of a physica l, mental, or emotional condition, do you have serious difficulty concentrating, remembering, or making decisions No 09/20/2021 10:26 AM Jose Whitt RN No [facility] 08-02-2021 Cognitive function Voice/Name [facility] Work Phone: Clinical Notes 07-31-2017 to 04-09-2025 Telephone Encounter - Jaskaran Quiroz APRN.[employer] - 02/24/2025 9:07 AM EDTTelephone Encounter - Jaskaran Quiroz APRN.[employer] - 02/24/2025 9:07 AM Yayo Walker Mammo Tech - 01/07/2025 10:50 AM EDT Note Date & Type Note Facility 04-09-2025 Note HNO ID: [id number] Author: GABBIE GRADY MD Service: ? Author Type: Physician Type: Progress Notes Filed: 04/09/2025 17:22 Note Text: Chief Complaint Patient presents with: Cough Head Congestion Chest Congestion HPI Crystal Thakur is a 65 year old female who presents here today for cough. Pt c/o head and chest congestion x 10 days with moist cough with clear/white sputum. No fevers. Decreased appetite since being ill. Getting Shortness of Breath with exertion or coughing a lot, some wheezing. Is using the albuterol inhalers but coughing so much it is hard to get the medication in her lungs. Has been taking cough and cold medication for hypertension, mucinex, tessalon perls, cough drops. Has had bronchitis in the past but it has been awhile and she feels this is different. Past medical history, appointments, medications, allergies reviewed. 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 Abnormal Pap smear of cervix 09/11/2013 LSIL, Seeing HYDRAULIC TESTER Allergic rhinitis Anemia, unspecified Due to heavy menstrual cycles Benign neoplasm of colon 08/2009 POLYPS Cervical high risk human papillomavirus (HPV) DNA test positive 09/18/2013 Cystocele, midline Diabetes mellitus type II, controlled (HCC) metformin Diverticulosis Esophageal reflux 1999 RESOLVED due to diet change Esophagitis, unspecified Essential hypertension, benign 1998 Fatty liver Fibromuscular dysplasia renal and carotid arteries; follows with [facility]MD clinic Fibromyalgia Giant cell arteritis (HCC) 2020 Heart palpitations nadalol helps Incomplete uterovaginal prolapse Left shoulder pain Obesity, unspecified Osteoarthrosis, unspecified whether generalized or localized, lower leg bilateral knees > hips Other and unspecified hyperlipidemia 1998 has been on meds in past, had tolerated Lipitor but afraid of statins Phlebitis and thrombophlebitis of superficial vessels of lower extremities 3rd child 1985, right leg Renal stones Varicose veins of other sites 2006 h/o varicose veins onset with first age of 20, had total of 4 pregnancies last was twins. First Vein stripping right leg surgery was 1992 at [facility], Second surgery 1993 to left leg (h/o hernia repair reason for one leg at a time). Here for possible laser surgery to remove lumpy and rope type veins. Previous Surgical History PAST SURGICAL HISTORY Procedure Laterality Date COLSC FLX W/RMVL OF TUMOR POLYP LESION SNARE TQ 01/14/2010 DILATION AND CURETTAGE DXAND/THER NONOBSTETRIC 2006 Dilation AND curettage-HYPERPLASIA, likely will have hysterectomy within next year EGD TRANSORAL BIOPSY SINGLE/MULTIPLE 01/14/2010 EXC CYST/ABERRANT BREAST TISSUE OPEN 1/> LESION 01/03/2010 Left breast, benign FASCIECTOMY PLANTAR FASCIA PARTIAL SPX 1993 FOOT Left 1989' plantar fasciitis release HYSTERECTOMY HX 05/03/2020 TVH, uterosacral vaginal vault suspension, A/P repair IUD INSERTION (HYDRAULIC TESTER DEPT)_*FL 05/14/2008 Mirena, removed JOINT REPLACEMENT HX total right knee LIG/TRNSXJ FLP TUBE ABDL/VAG APPR UNI/BI 1988 Tubal ligation NOVASURE 01/2010 PAST SURGICAL HISTORY OF 1983 EXPLORATORY LAP PAST SURGICAL HISTORY OF 1992 BILAT LEG-VEIN STRIPPING PAST SURGICAL HISTORY OF 10/2007, 12/2007 Bilat leg-vein stripping PAST SURGICAL HISTORY OF Right 01/24/2021 Right bicep repair PAST SURGICAL HISTORY OF Right 2018 TKA PAST SURGICAL HISTORY OF Left 01/21/2024 Left rotator cuff repair and bicep tendonesis REMOVE INTRAUTERINE DEVICE 2011 Expelled 3 weeks after insertion REPAIR INGUINAL HERNIA Bilateral 08/30/2022 laparoscopic repair with mesh ROTATOR CUFF REPAIR Right bicept reattachment RPR UMBILICAL HRNA 5 YRS/> REDUCIBLE 1993, 1989, 2007 Repaired 3 Times VAGINOSCOPY 09/25/2013 LSIL Family History FAMILY HISTORY Problem Relation Age of Onset Lipids Mother High Cholesterol Hypertension Mother Osteoporosis Mother Arthritis Mother RA Cataract Mother resolved with surgery other (Other) Mother Meniere's Skin Cancer Mother Psychiatry Father depression, committed suicide age 49 Osteoporosis Maternal Grandmother Thyroid Maternal Grandmother Cancer Maternal Grandfather leukemia Heart Maternal Grandfather Alzheimer's Disease Paternal Grandmother Thyroid Daughter Strabismus Daughter other (turners) Daughter other (aortic stenosis) Daughter Thyroid Daughter other (celiac disease) Daughter other (Fibromyalgia) Daughter other (MVP) Daughter Thyroid Daughter other (MVP) Daughter Hypertension Son other (hypogonadism) Son other (osteoarthritis) Son other (IBS) Son Diabetes Paternal Aunt Anesthesia Problems No Family History Patient Allergies ALLERGIES Allergen Reactions Cymbalta [Duloxetin* Other: See Comments Intolerance, elevated BP, pulse Keflex [Cephalexin] GI Upset Bloating and tears up s (more content not included)... [facility] 02-24-2025 Telephone encounter Note The following approved medication requests have been transmitted electronically. Requested Prescriptions Pending Prescriptions Disp Refills methocarbamol (ROBAXIN) 500 mg tablet 180 tablet 2 Sig: Take 2 tablets by mouth three times a day. As needed for pain Jaskaran Quiroz APRN.CNP [facility] 02-24-2025 Miscellaneous Notes The following approved medication requests have been transmitted electronically. Requested Prescriptions Pending Prescriptions Disp Refills methocarbamol (ROBAXIN) 500 mg tablet 180 tablet 2 Sig: Take 2 tablets by mouth three times a day. As needed for pain Jaskaran Quiroz APRN.CNP The patient has been identified by name and date of : Yes Caregiver verified no other encounters exist for this prescription request: Yes Caregiver confirmed with patient/requestor that no other refills are due, in the near future, with this provider at this time: No The last office visit in the department: 12/25/2024 Does the patient have a future office visit with this provider/department: No Visit date not found Requested Prescriptions Pending Prescriptions Disp Refills methocarbamol (ROBAXIN) 500 mg tablet 180 tablet 2 Sig: Take 2 tablets by mouth three times a day. As needed for pain Kinjal Mistry MA February 24, 2025 8:16 AM documented in this encounter [facility] 02-24-2025 Telephone encounter Note The patient has been identified by name and date of : Yes Caregiver verified no other encounters exist for this prescription request: Yes Caregiver confirmed with patient/requestor that no other refills are due, in the near future, with this provider at this time: No The last office visit in the department: 12/25/2024 Does the patient have a future office visit with this provider/department: No Visit date not found Requested Prescriptions Pending Prescriptions Disp Refills methocarbamol (ROBAXIN) 500 mg tablet 180 tablet 2 Sig: Take 2 tablets by mouth three times a day. As needed for pain Kinjal Mistry MA February 24, 2025 8:16 AM [facility] 01-20-2025 Telephone encounter Note The following approved medication requests have been transmitted electronically. Requested Prescriptions Signed Prescriptions Disp Refills blood sugar diagnostic (TRUE METRIX GLUCOSE TEST STRIP) test strip 150 strip 11 Sig: Use 4-6 times daily to check blood sugar. Dx:E11.9 insulin:No Authorizing Provider: JASKARAN QUIROZ lancets (ULTRA FINE LANCETS) 30 gauge 90 each 1 Sig: Use with blood glucose test four times a day. Insulin Dep? No Authorizing Provider: JASKARAN QUIROZ APRN.CNP [facility] 01-20-2025 Miscellaneous Notes The following approved medication requests have been transmitted electronically. Requested Prescriptions Signed Prescriptions Disp Refills blood sugar diagnostic (TRUE METRIX GLUCOSE TEST STRIP) test strip 150 strip 11 Sig: Use 4-6 times daily to check blood sugar. Dx:E11.9 insulin:No Authorizing Provider: JASKARAN QUIROZ lancets (ULTRA FINE LANCETS) 30 gauge 90 each 1 Sig: Use with blood glucose test four times a day. Insulin Dep? No Authorizing Provider: JASKARAN QUIROZ APRN.CNP documented in this encounter [facility] 01-07-2025 History of Presen t illness Narrative Radiology Service Progress Note PATIENT NAME: Crystal Thakur DATE OF SERVICE: January 07, 2025 TIME: 11:03 AM PATIENT IDENTITY VERIFICATION COMPLETED USING TWO (2) IDENTIFIERS: Name and Date of confirmed by patient verbally. FALL SCREENING: Has the patient had 2 falls in the last year or 1 fall with injury or currently using an Ambulatory Assistive Device (Walker, Cane, Wheelchair, Crutches, etc.)? No PATIENT GENDER DATA: Assigned female at . status: : No status: NO. PATIENT RELEVANT IMPLANT DATA REVIEWED: Not Applicable PATIENT PRESENTS WITH AN IMPLANTABLE OR ATTACHED BUTTER GRADER: Yes [facility] RADIOLOGY DEPARTMENT: Mammography PERIPHERAL IV DATA: Not applicable SIGNED BY: Anushka Castellanos January 07, 2025 11:03 AM documented in this encounter [facility] 01-07-2025 Note HNO ID: [id number] Author: AYYO OQUENDO Mammo Tech Service: ? Author Type: Resident Buyer Type: Progress Notes Filed: 01/07/2025 11:03 Note Text: Radiology Service Progress Note PATIENT NAME: Crystal Thakur DATE OF SERVICE: January 07, 2025 TIME: 11:03 AM PATIENT IDENTITY VERIFICATION COMPLETED USING TWO (2) IDENTIFIERS: Name and Date of confirmed by patient verbally. FALL SCREENING: Has the patient had 2 falls in the last year or 1 fall with injury or currently using an Ambulatory Assistive Device (Walker, Cane, Wheelchair, Crutches, etc.)? No PATIENT GENDER DATA: Assigned female at . status: : No status: NO. PATIENT RELEVANT IMPLANT DATA REVIEWED: Not Applicable PATIENT PRESENTS WITH AN IMPLANTABLE OR ATTACHED BUTTER GRADER: Yes [facility] DE[facility]: Mammography PERIPHERAL IV DATA: Not applicable SIGNED BY: Anushka Castellanos January 07, 2025 11:03 AM [facility] 12-25-2024 History of Presen t illness Narrative Chief Complaint Patient presents with: 6 Month Exam HPI Crystal Thakur is a 64 year old female who presents here today for 6 month follow up. No bowel, Gi, or urinary issues. Has hx of gallstones and fatty liver disease. Following with Gastro Dr. Tamez who did pt colonoscopy 09/29/24. Recommended 5 year repeat. Taking Ursodiol 300 mg BID due to hx of kidney stones. Last visit pt was going to check the local Nephrologists for evaluation due to FMD for renal arteries and HTN. She has been dealing with chronic diarrhea since her colonoscopy in September, she has lost weight due to this. She has been trying to get in with Dr. Tamez but their office never seems to call them back. She has tried eliminating dairy, eating a BRAT diet, tried Metamucil. She has nagging feeling in the stomach. Having Nausea at times. Pt feels the sx she is experiencing are different than her gallstones or fatty liver. She has hx of diverticulitis. Is taking 4 imodium every other day. Stool has mucous at times and liquid. GERD: Sx stable with Prilosec 20 mg daily. HTN: Checks BP at home. No chest pains, dizziness, or SOB. Taking HCTZ 25 mg daily, Norvasc 10 mg daily, Clonidine 0.1 mg BID, Lisinopril 20 mg 2 pills once daily and Nadolol 40 mg 1 pill BID. DM: Checks BS up to 6 x a day with Hugh. FBS running 100 or lower. No hypoglycemic episodes. Has neuropathy sx in feet. Taking Metformin 500 mg 1-2 pills in the AM and 1 or 2 in the evening. Follows with Podiatry Dr. Burris every 3 months for foot exams. She also follows with Dr. Wright for dm eye exams. Lipid: Controlling with diet. Has not tolerated cholesterol medications. Does take ASA 81 mg daily. No regular exercise but is more active in the warmer months. Memory: no changes. Fibro/Hx GCA: Taking Nortriptyline 25 mg daily, Ibuprofen 800 mg every 6 hours prn, and Robaxin 500 mg 2 pill TID. Has Osteopenia. Past medical history, appointments, medications, allergies reviewed. 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 Abnormal Pap smear of cervix 09/11/2013 LSIL, Seeing HYDRAULIC TESTER Allergic rhinitis Anemia, unspecified Due to heavy menstrual cycles Benign neoplasm of colon 08/2009 POLYPS Cervical high risk human papillomavirus (HPV) DNA test positive 09/18/2013 Cystocele, midline Diabetes mellitus type II, controlled (HCC) metformin Diverticulosis Esophageal reflux 1999 RESOLVED due to diet change Esophagitis, unspecified Essential hypertension, benign 1998 Fatty liver Fibromuscular dysplasia renal and carotid arteries; follows with [facility] clinic Fibromyalgia Giant cell arteritis (HCC) 2020 Heart palpitations nadalol helps Incomplete uterovaginal prolapse Left shoulder pain Obesity, unspecified Osteoarthrosis, unspecified whether generalized or localized, lower leg bilateral knees > hips Other and unspecified hyperlipidemia 1998 has been on meds in past, had tolerated Lipitor but afraid of statins Phlebitis and thrombophlebitis of superficial vessels of lower extremities 3rd child 1985, right leg Renal stones Varicose veins of other sites 2006 h/o varicose veins onset with first age of 20, had total of 4 pregnancies last was twins. First Vein stripping right leg surgery was 1992 at [facility], Second surgery 1993 to left leg (h/o hernia repair reason for one leg at a time). Here for possible laser surgery to remove lumpy and rope type veins. Previous Surgical History PAST SURGICAL HISTORY Procedure Laterality Date COLSC FLX W/RMVL OF TUMOR POLYP LESION SNARE TQ 01/14/2010 DILATION & CURETTAGE DX&/THER NONOBSTETRIC 2006 Dilation & curettage-HYPERPLASIA, likely will have hysterectomy within next year EGD TRANSORAL BIOPSY SINGLE/MULTIPLE 01/14/2010 EXC CYST/ABERRANT BREAST TISSUE OPEN 1/> LESION 01/03/2010 Left breast, benign FASCIECTOMY PLANTAR FASCIA PARTIAL SPX 1992 FOOT Left 1989' plantar fasciitis release HYSTERECTOMY HX 05/03/2020 TVH, uterosacral vaginal vault suspension, A/P repair IUD INSERTION (HYDRAULIC TESTER DEPT)_*FL 05/14/2008 Mirena, removed JOINT REPLACEMENT HX total right knee LIG/TRNSXJ FLP TUBE ABDL/VAG APPR UNI/BI 1987 Tubal ligation NOVASURE 01/2010 PAST SURGICAL HISTORY OF 1984 EXPLORATORY LAP PAST SURGICAL HISTORY OF 1992 BILAT LEG-VEIN STRIPPING PAST SURGICAL HISTORY OF 10/2007, 12/2007 Bilat leg-vein stripping PAST SURGICAL HISTORY OF Right 01/24/2021 Right bicep repair PAST SURGICAL HISTORY OF Right 2018 TKA PAST SURGICAL HISTORY OF Left 01/21/2024 Left rotator cuff repair and bicep tendonesis REMOVE INTRAUTERINE DEVICE 2011 Expelled 3 weeks after insertion REPAIR INGUINAL HERNIA Bilateral 08/30/2022 laparoscopic repair with mesh ROTATOR CUFF REPAIR Right bicept reattachment RPR UMBILICAL HRNA 5 YRS/> REDUCIBLE 1993, 1989, 2007 Repaired 3 Times VAGINOSCOPY 09/25/2013 LSIL Family History FAMILY HISTORY Problem Relation Age of Onset Lipids Mother High Cholesterol Hypertension Mother Osteoporosis Mother Arthritis Mother RA Cataract Mother resolved with surgery other (Other) Mother Meniere's Skin Cancer Mother Psychiatry Father depression, committed suicide age 49 Osteoporosis Maternal Grandmother Thyroid Maternal Grandmother Cancer Maternal Grandfather leukemia Heart Maternal Grandfather Alzheimer's Disease Paternal Grandmother Thyroid Daughter Strabismus Daughter other (turners) Daughter other (aortic stenosis) Daughter Thyroid Daughter other (celiac disease) Daughter other (Fibromyalgia) Daughter other (MVP) Daughter Thyroid Daughter other (MVP) Daughter Hypertension Son other (hypogonadism) Son other (osteoarthritis) Son other (IBS) Son Diabetes Paternal Aunt Anesthesia Problems No Family History Patient Allergies ALLERGIES Allergen Reactions Cymbalta [Duloxetin* Other: See Comments Intolerance, elevated BP, pulse Keflex [Cephalexin] GI Upset Bloating and tears up stomach Monosodium Glutamat* Other: See Comments Severe headache Oxycodone Other: See Comments Heart palpitations Rabbit Dander Shortness of Breath [place]'s Wort Other: See Comments Elevated BP Atorvastatin Myalgia Muscle Aches Crestor [Rosuvastat* Myalgia Gabapentin Other: See Comments Depression, suicidal thoughts Niacin Intolerance Facial numbness Niacinamide Other: See Comments Facial Numbness Cats Shortness of Breath Aspartame Other: See Comments Severe headache Doxycycline GI Upset Erythromycin GI Upset Glutamic Acid Unknown Patient is not familiar with this product Latex Itching Redness Sucralose Unknown Zithromax [Azithrom* GI Upset GI Current Medications Current Outpatient Medications on File Prior to Visit Medication Sig omeprazole (PRILOSEC) 20 mg capsule Take 1 capsule by mouth daily before breakfast. 1/2 hr before meal. coenzyme Q10 (CO Q-10) 100 mg cap capsule Take 2 capsules by mouth once daily. lisinopril (ZESTRIL) 20 mg tablet Take 2 tablets by mouth once daily. Blood-Glucose Sensor (FREESTYLE HUGH 3 SENSOR) cierra Use as directed to monitor glucose level methocarbamol (ROBAXIN) 500 mg tablet Take 2 tablets by mouth three times a day. As needed for pain hydroCHLOROthiazide 25 mg tablet Take 1 tablet by mouth once daily. cloNIDine HCl (CATAPRES) 0.1 mg tablet Take 1 tablet by mouth two times a day. nadolol (CORGARD) 80 mg tablet Take 1 tablet by mouth two times a day. metFORMIN ER (GLUCOPHAGE XR) 500 mg 24 hr tablet Take 3 tablets by mouth daily with breakfast. Blood-Glucose Meter,Continuous (FREESTYLE HUGH 3 READER) [facility] [place] directed to monitor glucose level benzonatate (TESSALON PERLE) 100 mg capsule Take 1 capsule by mouth three times a day as needed for cough. amLODIPine (NORVASC) 10 mg tablet Take 1 tablet by mouth once daily. nortriptyline (PAMELOR) 25 mg capsule Take 1 capsule by mouth daily at bedtime. albuterol HFA (PROVENTIL HFA, VENTOLIN HFA) 90 mcg/actuation inhaler Inhale 2 Puffs as instructed every 4 hours as needed. nystatin (MYCOSTATIN) powder Apply 1 application to affected area as needed. vitamin E mixed/tocotrienol (VITAMIN E COMPLEX ORAL) Take by mouth. ibuprofen (MOTRIN) 800 mg tablet Take 1 tablet by mouth every 6 hours as needed for pain. FREESTYLE HUGH 14 DAY SENSOR kit apply NEW SENSOR EVERY 14 DAYS TO UPPER ARM blood sugar diagnostic (TRUE METRIX GLUCOSE TEST STRIP) test strip Use 4-6 times daily to check blood sugar. Dx:E11.9 insulin:No ondansetron (ZOFRAN) 4 mg tablet Take 1 tablet by mouth every 8 hours as needed. Lactobacillus acidoph-pectin 75 million cell -100 mg cap Take 1 capsule by mouth once daily. VITAMIN B COMPLEX ORAL Take by mouth once daily. VITAMIN K2 ORAL Take 100 mcg by mouth once daily. Milk Thistle 150 mg cap Take 1 capsule by mouth once daily. calcium carbonate/vitamin D3 (CALCIUM WITH VITAMIN D ORAL) Take 1 tablet by mouth twice daily. 600 mg calcium with 1000mg vitamin D3 aspirin, enteric coated (ASPIR-LOW) 81 mg EC tablet Take 1 tablet by mouth once daily. ursodiol (ACTIGALL) 300 mg capsule Take 300 mg by mouth twice daily. lancets (FREESTYLE LANCETS) 28 gauge [facility] [place] blood sugar(s) one times daily. Dx: Type 2 DM - Controlled E11.9 Insulin: No loratadine (CLARITIN) 10 mg ORAL tablet Take 1 tablet by mouth once daily. No current facility-administered medications on file prior to visit. Social History Social History Tobacco Use Smoking status: Former Current packs/day: 0.00 Average packs/day: 1 pack/day for 32.0 years (32.0 ttl pk-yrs) Types: Cigarettes Start date: 03/14/1982 Quit date: 03/14/2014 Years since quittin.7 Smokeless tobacco: Never Vaping Use Vaping status: Never Used Substance Use Topics Alcohol use: Yes Comment: rarely Drug use: Yes Comment: CBD gummies and "cigarette" couple times a week EXAM: BP 126/70 Pulse 78 Resp 16 Wt 83.4 kg (183 lb 13.8 oz) LMP 04/17/2016 (Exact Date) SpO2 98% BMI 29.23 kg/m General Appearance: Well appearing, alert, in no acute distress, well-hydrated, well nourished.. Lungs: Lungs clear to auscultation. No wheezing, rhonchi, rales.. Heart: RRR without murmur, gallop, or rubs. No ectopy. Health Maintenance List Lung Cancer Screening due on 11/08/2023 Urine Albumin:Creatinine Ratio due on 06/20/2024 Mammogram Screening due on 11/25/2024 Depression Screening due on 12/28/2024 Anxiety Screening due on 12/28/2024 RSV Vaccine(1 - Risk 60-74 years 1-dose series) due on 07/03/2025 Shingrix Vaccine(1 of 2) due on 07/03/2025 Covid-19 Vaccine(3 - 2023- season) due on 07/03/2025 Pneumococcal Vaccine: 50+(1 of 2 - PCV) due on 07/03/2025 Influenza Vaccine(Season Ended) due on 03/09/2025 HbA1C due on 06/23/2025 Diabetic Foot Exam due on 10/25/2025 Dilated Retinal Exam due on 12/13/2025 LDL Cholesterol due on 12/22/2025 Annual PCP Team Chronic Disease Visit due on 12/25/2025 DTaP,Tdap,Td Vaccine(2 - Td or Tdap) due on 03/14/2027 Colorectal Cancer Screening due on 09/30/2027 Hepatitis C Screening Completed HIV Screening Completed Cervical Cancer Screening Discontinued Data reviewed Appointment on 12/22/2024 Component Date Value Protein, Total 12/22/2024 6.9 Albumin 12/22/2024 4.2 Calcium, Total 12/22/2024 9.2 Bilirubin, Total 12/22/2024 0.4 Alkaline Phosphatase 12/22/2024 59 AST 12/22/2024 16 ALT 12/22/2024 10 Glucose 12/22/2024 101 (H) BUN 12/22/2024 13 Creatinine 12/22/2024 0.73 Sodium 12/22/2024 138 Potassium 12/22/2024 3.7 Chloride 12/22/2024 100 CO2 12/22/2024 28 Anion Gap 12/22/2024 10 Estimated Glomerular Mundo* 12/22/2024 93 Cholesterol, Total 12/22/2024 301 (H) Triglyceride 12/22/2024 297 (H) HDL Cholesterol 12/22/2024 36 (L) LDL Cholesterol, Calcula* 12/22/2024 205 (H) Non HDL Cholesterol 12/22/2024 265 (H) VLDL Cholesterol 12/22/2024 64 (H) TC:HDL Ratio 12/22/2024 8.36 (H) LDL:HDL Ratio 12/22/2024 5.69 (H) Fasting Time 12/22/2024 11 WBC 12/22/2024 6.50 RBC 12/22/2024 4.48 Hemoglobin 12/22/2024 12.2 Hematocrit 12/22/2024 38.1 MCV 12/22/2024 85.0 MCH 12/22/2024 27.2 MCHC 12/22/2024 32.0 RDW-CV 12/22/2024 14.0 Platelet Count 12/22/2024 218 MPV 12/22/2024 11.2 Neutrophils % 12/22/2024 50.2 Abs Neut 12/22/2024 3.26 Lymphocytes % 12/22/2024 32.9 Abs Lymph 12/22/2024 2.14 Monocytes % 12/22/[address] [facility] 12/22/2024 0.68 Eosinophils % 12/22/2024 5.5 Abs Eosin 12/22/2024 0.36 Basophils % 12/22/2024 0.6 Abs Baso 12/22/2024 0.04 Immature Granulocytes % 12/22/2024 0.3 Abs Immature Gran 12/22/2024 <0.03 NRBC 12/22/2024 0.0 Absolute nRBC 12/22/2024 <0.01 Diff Type 12/22/2024 Auto Hemoglobin A1C 12/22/2024 6.3 (H) Estimated Average Glucose 12/22/2024 134 Sed Rate, Westergren 12/22/2024 10 CRP 12/22/2024 0.4 Iron 12/22/2024 50 TIBC 12/22/2024 341 Transferrin Saturation 12/22/2024 14.7 (L) Ferritin 12/22/2024 38.0 ASSESSMENT/PLAN: 1. Controlled type 2 diabetes mellitus without complication, without long-term current use of insulin (HCC) - ICD9: 250.00, ICD10: E11.9 (primary diagnosis) - Controlled - Continue current medications; may try cutting back on metformin to see if diarrhea improves - COMPREHENSIVE METABOLIC PANEL - LIPID PANEL, FASTING - HEMOGLOBIN A1C 2. Encounter for screening mammogram for malignant neoplasm of breast - ICD9: V76.12, ICD10: Z12.31 - [facility] SCREENING W JOURDAN 3. Mixed hyperlipidemia - ICD9: 272.2, ICD10: E78.2 - Uncontrolled Statin intolerant - COMPREHENSIVE METABOLIC PANEL - LIPID PANEL, FASTING - HEMOGLOBIN A1C 4. HYPERTENSION - ICD9: 401.1, ICD10: I10 - Controlled - Continue current medications - Recommend home blood pressure monitoring, to bring results to next visit - Encouraged sodium restriction, DASH or Mediterranean diet - Recommend regular aerobic exercise - COMPREHENSIVE METABOLIC PANEL - LIPID PANEL, FASTING - HEMOGLOBIN A1C 5. Fibromyalgia - ICD9: 729.1, ICD10: M79.7 Stable 6. Abdominal bloating - ICD9: 787.3, ICD10: R14.0 Increase prilosec to bid - OMEPRAZOLE 20 MG CAPSULE,DELAYED RELEASE 7. Pain of upper abdomen - ICD9: 789.09, ICD10: R10.10 - OMEPRAZOLE 20 MG CAPSULE,DELAYED RELEASE 8. Vitamin D deficiency - ICD9: 268.9, ICD10: E55.9 Check labs in 6 months - VITAMIN D 25 HYDROXY 9. Family history of hemochromatosis - ICD9: V18.19, ICD10: Z83.49 Monitor iron levels - IRON AND TIBC 10. Temporal arteritis (HCC) - ICD9: 446.5, ICD10: M31.6 Resolved; monitor inflammatory markers - SEDIMENTATION RATE, WESTERGREN - C-REACTIVE PROTEIN 11. Diarrhea, unspecified type - ICD9: 787.91, ICD10: R19.7 Try cutting down on metformin Increase prilosec Try to find GI provider in network Follow up in 6 months I agree with the Chief Complaint, ROS, and Past Histories independently gathered by the clinical technical support engineer and the remaining scribed note accurately describes my personal service to the patient. Medical Decision Making: Problems: Moderate: 2+ stable chronic illnesses and New problem with uncertain prognosis Data: Unique test result(s) reviewed: 3+ Unique test(s) ordered: 3+ Risk: Moderate: Drug management Medical Decision Making Level: 4 - Moderate Gabbie Grady MD The documentation for this note was completed by Kinjal Mistry MA acting as scribe for Gabbie Grady MD. December 25, 2024 4:04 PM. Kinjal Mistry MA documented in this encounter [facility] 12-25-2024 Note HNO ID: [id number] Author: GABBIE GRADY MD Service: ? Author Type: Physician Type: Progress Notes Filed: 12/25/2024 17:08 Note Text: Chief Complaint Patient presents with: 6 Month Exam HPI Crystal Thakur is a 64 year old female who presents here today for 6 month follow up. No bowel, Gi, or urinary issues. Has hx of gallstones and fatty liver disease. Following with Gastro Dr. Tamez who did pt colonoscopy 09/29/24. Recommended 5 year repeat. Taking Ursodiol 300 mg BID due to hx of kidney stones. Last visit pt was going to check the local Nephrologists for evaluation due to FMD for renal arteries and HTN. She has been dealing with chronic diarrhea since her colonoscopy in September, she has lost weight due to this. She has been trying to get in with Dr. Tamez but their office never seems to call them back. She has tried eliminating dairy, eating a BRAT diet, tried Metamucil. She has nagging feeling in the stomach. Having Nausea at times. Pt feels the sx she is experiencing are different than her gallstones or fatty liver. She has hx of diverticulitis. Is taking 4 imodium every other day. Stool has mucous at times and liquid. GERD: Sx stable with Prilosec 20 mg daily. HTN: Checks BP at home. No chest pains, dizziness, or SOB. Taking HCTZ 25 mg daily, Norvasc 10 mg daily, Clonidine 0.1 mg BID, Lisinopril 20 mg 2 pills once daily and Nadolol 40 mg 1 pill BID. DM: Checks BS up to 6 x a day with Hugh. FBS running 100 or lower. No hypoglycemic episodes. Has neuropathy sx in feet. Taking Metformin 500 mg 1-2 pills in the AM and 1 or 2 in the evening. Follows with Podiatry Dr. Burris every 3 months for foot exams. She also follows with Dr. Wright for dm eye exams. Lipid: Controlling with diet. Has not tolerated cholesterol medications. Does take ASA 81 mg daily. No regular exercise but is more active in the warmer months. Memory: no changes. Fibro/Hx GCA: Taking Nortriptyline 25 mg daily, Ibuprofen 800 mg every 6 hours prn, and Robaxin 500 mg 2 pill TID. Has Osteopenia. Past medical history, appointments, medications, allergies reviewed. 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 Abnormal Pap smear of cervix 09/11/2013 LSIL, Seeing HYDRAULIC TESTER Allergic rhinitis Anemia, unspecified Due to heavy menstrual cycles Benign neoplasm of colon 08/2009 POLYPS Cervical high risk human papillomavirus (HPV) DNA test positive 09/18/2013 Cystocele, midline Diabetes mellitus type II, controlled (HCC) metformin Diverticulosis Esophageal reflux 1999 RESOLVED due to diet change Esophagitis, unspecified Essential hypertension, benign 1998 Fatty liver Fibromuscular dysplasia renal and carotid arteries; follows with FMD clinic Fibromyalgia Giant cell arteritis (HCC) 2020 Heart palpitations nadalol helps Incomplete uterovaginal prolapse Left shoulder pain Obesity, unspecified Osteoarthrosis, unspecified whether generalized or localized, lower leg bilateral knees > hips Other and unspecified hyperlipidemia 1998 has been on meds in past, had tolerated Lipitor but afraid of statins Phlebitis and thrombophlebitis of superficial vessels of lower extremities 3rd child 1985, right leg Renal stones Varicose veins of other sites 2006 h/o varicose veins onset with first age of 20, had total of 4 pregnancies last was twins. First Vein stripping right leg surgery was 1992 at [facility], Second surgery 1993 to left leg (h/o hernia repair reason for one leg at a time). Here for possible laser surgery to remove lumpy and rope type veins. Previous Surgical History PAST SURGICAL HISTORY Procedure Laterality Date COLSC FLX W/RMVL OF TUMOR POLYP LESION SNARE TQ 01/14/2010 DILATION AND CURETTAGE DXAND/THER NONOBSTETRIC 2005 Dilation AND curettage-HYPERPLASIA, likely will have hysterectomy within next year EGD TRANSORAL BIOPSY SINGLE/MULTIPLE 01/14/2010 EXC CYST/ABERRANT BREAST TISSUE OPEN 1/> LESION 01/03/2010 Left breast, benign FASCIECTOMY PLANTAR FASCIA PARTIAL SPX 1992 FOOT Left 1989' plantar fasciitis release HYSTERECTOMY HX 05/03/2020 TVH, uterosacral vaginal vault suspension, A/P repair IUD INSERTION (HYDRAULIC TESTER DEPT)_*FL 05/14/2008 Mirena, removed JOINT REPLACEMENT HX total right knee LIG/TRNSXJ FLP TUBE ABDL/VAG APPR UNI/BI 1987 Tubal ligation NOVASURE 01/2010 PAST SURGICAL HISTORY OF 1983 EXPLORATORY LAP PAST SURGICAL HISTORY OF 1992 BILAT LEG-VEIN STRIPPING PAST SURGICAL HISTORY OF 10/2007, 12/2007 Bilat leg-vein stripping PAST SURGICAL HISTORY OF Right 01/24/2021 Right bicep repair PAST SURGICAL HISTORY OF Right 2017 TKA PAST SURGICAL HISTORY OF Left 01/21/2024 Left rotator cuff repair and bicep tendonesis REMOVE INTRAUTERINE DEVICE 2011 Expelled 3 weeks after insertion REPAIR INGUINAL HERNIA Bilateral 08/30/2022 laparoscopic repair with mesh ROTATO (more content not included)... [facility] 12-05-2024 Telephone encounter Note The following approved medication requests have been transmitted electronically. Requested Prescriptions Signed Prescriptions Disp Refills omeprazole (PRILOSEC) 20 mg capsule 90 capsule 3 Sig: Take 1 capsule by mouth daily before breakfast. 1/2 hr before meal. coenzyme Q10 (CO Q-10) 100 mg cap capsule 60 capsule 11 Sig: Take 2 capsules by mouth once daily. Jaskaran Quiroz APRN.[employer] [facility] 12-05-2024 Miscellaneous Notes The following approved medication requests have been transmitted electronically. Requested Prescriptions Signed Prescriptions Disp Refills omeprazole (PRILOSEC) 20 mg capsule 90 capsule 3 Sig: Take 1 capsule by mouth daily before breakfast. 1/2 hr before meal. coenzyme Q10 (CO Q-10) 100 mg cap capsule 60 capsule 11 Sig: Take 2 capsules by mouth once daily. Jaskaran Quiroz APRN.CNP Prescription Refill Information The patient has been identified by name and date of : Yes Caregiver verified no other encounters exist for this prescription request: Yes Caregiver confirmed with patient/requestor that no other refills are due, in the near future, with this provider at this time: Yes The last office visit in the department: 07/03/24 Does the patient have a future office visit with this provider/department: Yes Requested Prescriptions Pending Prescriptions Disp Refills omeprazole (PRILOSEC) 20 mg capsule 90 capsule 3 Sig: Take 1 capsule by mouth daily before breakfast. 1/2 hr before meal. coenzyme Q10 (CO Q-10) 100 mg cap capsule 60 capsule 11 Sig: Take 2 capsules by mouth once daily. Cande Zacarias MA December 04, 2024 12:19 PM documented in this encounter [facility] 12-04-2024 Telephone encounter Note Prescription Refill Information The patient has been identified by name and date of : Yes Caregiver verified no other encounters exist for this prescription request: Yes Caregiver confirmed with patient/requestor that no other refills are due, in the near future, with this provider at this time: Yes The last office visit in the department: 07/03/24 Does the patient have a future office visit with this provider/department: Yes Requested Prescriptions Pending Prescriptions Disp Refills omeprazole (PRILOSEC) 20 mg capsule 90 capsule 3 Sig: Take 1 capsule by mouth daily before breakfast. 1/2 hr before meal. coenzyme Q10 (CO Q-10) 100 mg cap capsule 60 capsule 11 Sig: Take 2 capsules by mouth once daily. Cande Zacarias MA December 04, 2024 12:19 PM [facility] 11-20-2024 Telephone encounter Note OK to refill as ordered Gabbie Grady MD [facility] 11-20-2024 Miscellaneous Notes OK to refill as ordered Gabbie Grady MD FARAZ: 07/03/24 with PCP NOV: 01/01/25-6 month F/U with PCP Edith Chauhan MA documented in this encounter [facility] 11-20-2024 Telephone encounter Note FARAZ: 07/03/24 with PCP NOV: 01/01/25-6 month F/U with PCP Edith Chauhan MA [facility] 10-23-2024 Telephone encounter Note Call to pt and notified her that Rx has been sent in and labs ordered. Pt verbalized understanding. Cande Zacarias MA [facility] 10-23-2024 Miscellaneous Notes Call to pt and notified her that Rx has been sent in and labs ordered. Pt verbalized understanding. Cande Zacarias MA OK to refill as ordered Iron and ferritin added to labs for December Gabbie Grady MD Patient calls back to request refill on clonidine not klonopin. Pended. Also, asking if provider would place orders with her upcoming labs in December to check for hemochromatosis as she has an aunt that was just diagnosed and other family members. Emmanuelle Mark RN OK to refill as ordered Gabbie Grady MD FARAZ: 07/03/24 with PCP NOV: 01/01/25-6 month F/U with PCP Last refill: 04/29/24 With 60 and 5 refills Edith Chauhan MA documented in this encounter [facility] 10-23-2024 Telephone encounter Note OK to refill as ordered Iron and ferritin added to labs for December Gabbie Grady MD [facility] 10-23-2024 Telephone encounter Note Patient calls back to request refill on clonidine not klonopin. Pended. Also, asking if provider would place orders with her upcoming labs in December to check for hemochromatosis as she has an aunt that was just diagnosed and other family members. Emmanuelle Mark, RN [facility] 10-22-2024 Telephone encounter Note OK to refill as ordered Gabbie Grady MD [facility] 10-22-2024 Telephone encounter Note FARAZ: 07/03/24 with PCP NOV: 01/01/25-6 month F/U with PCP Last refill: 04/29/24 With 60 and 5 refills Edith Chauhan MA [facility] 10-22-2024 Telephone encounter Note MC message turned into REFILL ENCOUNTER. Edith Chauhan MA [facility] 10-22-2024 Miscellaneous Notes MC message turned into REFILL ENCOUNTER. Edith Chauhan MA documented in this encounter [facility] 09-29-2024 Consult note [facility] 09-29-2024 History and physi jeannette note Note Date/Time September 29, 2024 10:19am [facility] Medical Records Department [address] [place] [id number] History & Physical Exam 09/29/24 1017 MR#: [id number] Acct: [id number] Name: CRYSTAL THAKUR Rep #:[id number] : 1960 64 From: Doug Tamez DO PCP: Dr. Gabbie Grady MD Status:[facility] Location: [place] [address]1 HPI - General General Date of Admission: 10/08/24 Date of Service: 09/29/24 HPI Narrative CRYSTAL THAKUR, is a 63 F who presents for a colonoscopy Dr Dashawn prescribed ursodiol to try to treat gallstones; the gallstones persistper US; they are asymptomatic. Because of hepatic steatosis we got liver elastography--liver stiffness 6.2 kpa which is F0-F1 Metavir score. Her comorbidconditions that can affect liver stiffness include obesity, DM2, hyperlipidemia.She takes prn ondansetron for occas nausea which seems random, not assoc with other symptoms. No vomiting, dysphagia, abdominal pain. She takes omeprazole forgerd, not having heartburn or acid reflux. Her bowels are good, no diarrhea or constipation, no melena or hematochezia. Daily ibuprofen 800-2400 mg per day typically, 07/2021 Colonoscopy 1-2 mm tubular adenoma, repeat in 5 yrs OV 8.27.24 patient has been doing well. Although she has been having constipation, nausea and vomiting since being on narcotic following her shouldersurgery. She is having a bowel movement about once a day but her normal is 2-4 times per day. She has also been taking milk of mag and using a glycerin suppository as needed. She has been on narcotics before and had not had these type of symptoms before. She says she will only be on them for one more week. Overall she is feeling better than she has in the past. [facility] Medical History Fibromuscular dysplasia GCA (giant cell arteritis) Type 2 diabetes mellitus Wears glasses Wears dentures Depression Anxiety Alcohol use Abrasion History of steroid therapy Diabetes Arthritis History of renal disease Hx of temporal arteritis Anemia Fatty liver Easy bruising Restless legs Back pain Migraine headache History of fibromuscular dysplasia Syncope Dietary restriction History of diverticulosis Former smoker Shortness of breath on exertion Leg cramps History of edema History of stress test Cardiology follow-up encounter History of irregular heartbeat Chest pain Hx of flexible sigmoidoscopy History of use of contraceptive intrauterine device (IUD) Heart palpitations Fibromuscular dysplasia of renal artery Controlled type 2 diabetes mellitus DRUJ (distal radioulnar joint) arthrosis, 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, thumb, degenerative Pain in joint, hand Chondromalacia of patella Dizziness and giddiness Cervicalgia Benign neoplasm of colon Edema Fibromyalgia Obesity Osteoarthrosis Esophageal reflux Hyperlipidemia HTN (hypertension) uterine ablation Rectocele Home Medications ?Medication ?Instructions ?Recorded ?Last Taken ?Type albuterol sulfate 90 mcg/actuation 2 puff inhalation Q 6H PRN SOB 07/30/20 Unknown History aerosol inhaler amlodipine 5 mg tablet 5 mg PO QHS 07/30/2009/28/ 5 History aspirin 81 mg tablet,delayed 81 mg PO DAILY 07/30/20 0 09/25/24 History release (Adult Low Dose Aspirin) benzonatate 100 mg capsule 100 mg PO PRN PRN Cough Unknown History coenzyme Q10 75 mg capsule (Ultra 200 mg PO DAILY 07/10 08/29 Unknown History CoQ10) hydrochlorothiazide 50 mg tablet 25 mg PO DAILY 09/29/24 06:30 History lisinopril 20 mg tablet 40 mg PO DAILY 07/30/2009/07 06:30 History loratadine 10 mg capsule 10 mg PO DAILY PRN ALLERGIES 07/30/20 Unknown History methocarbamol 500 mg tablet 1,000 mg PO PRN PRN MUSCLE SPASMS 07/30/20 Unknown History nadolol 80 mg tablet 40 tab PO BID 07/30/2009/29 06:30 History nystatin 100,000 unit/gram topical 1 applic topical DA FIDEL PRN Skin 07/30/20 Unknown History powder Cleansing calcium carb-ergocalciferol (vit 1 tab PO DAILY Unknown History D2) 600 mg calcium-200 unit tablet omeprazole 20 mg tablet,delayed 20 mg PO DAILY 2 09/28/24 History release Bacillus coagulans-Bacillus 1 tab PO DAILY #90 tabs Unknown Rx subtilis 1 billion cell chewable tablet (up4 Probiotics-Mind and Body) ibuprofen 600 mg tablet 800 mg PO PRN PRN Pain 09/1509/28/24 History metformin 500 mg tablet,extended 500 mg PO DAILY 09/1509/27/24 History release 24hr (osmotic) vitamin B complex (B 1 tab PO DAILY 09/15/21 Unkn own History Complex-Vitamin B12 tablet) phytonadione (vitamin K1) 100 mcg 100 mcg PO DAILY Unknown History tablet Held on 09/29/24. Instructions: pt out of maria esther ursodiol 300 mg capsule See Rx Instructions .Route . COMPLEX 03/04/24 Unknown History ursodiol 300 mg capsule 300 mg PO BID #90 caps 05/0809/28/24 Rx Allergy/AdvReac Type Severity Reaction Status Date / Time gabapentin Allergy Severe Depression, Verified 09/29/24 10:14 suicidal thoughts cat dander Allergy Mild unknown Verified 09/29/24 10:14 latex Allergy Mild Redness, Verified 09/29/24 10:14 itching niacinamide Allergy Mild Facial Verified 09/29/24 10:14 Numbness rabbit dander Allergy Mild SOB Verified 09/29/24 10:14 aspartame AdvReac Mild Severe Verified 09/29/24 10:14 Headache atorvastatin AdvReac Mild Muscle Verified 09/29/24 10:14 Aches azithromycin (From Zithromax) AdvReac Mild GI upset Verified 09/29/24 10:14 doxycycline AdvReac Mild GI upset Verified 09/29/24 10:14 duloxetine (From Cymbalta) AdvReac Mild Intolerance, Verified 09/29/24 10:14 elevated BP, elevated HR erythromycin base AdvReac Mild GI upset Verified 09/29/24 10:14 monosodium glutamate AdvReac Mild Severe Verified 09/29/24 10:14 Headache niacin AdvReac Mild Intolerance Verified 09/29/24 10:14 rosuvastatin (From Crestor) AdvReac Mild Myalgia Verified 09/29/24 10:14 Huan's wort AdvReac Mild NEEDS Verified 09/29/24 10:14 FOLLOW-UP sucralose (From Splenda AdvReac Mild Severe Verified 09/29/24 10:14 (sucralose)) Headaches Family History Other Alzheimer disease Cancer Diabetes Heart disease Hypertension Osteoarthritis Surgical History Hx of bladder repair surgery History of hysterectomy Hx of colonoscopy with polypectomy History of esophagogastroduodenoscopy (EGD) Hx of breast surgery Hx of foot surgery Hx of dilation and curettage Hx of shoulder surgery H/O vein stripping H/O umbilical hernia repair Tubal ligation status S/P TKR (total knee replacement) Social History household members: none housing: house current occupational status: employed current occupation: [employer] Smoking Status: Former smoker alcohol intake: current alcohol intake frequency: holidays/special occasions only what type of physical activity do you participate in: walking seatbelt use: always do you feel safe at home: Yes ROS Constitutional Constitutional: Denies fatigue, fever(s), poor appetite, weight gain or weight loss Gastrointestinal Gastrointestinal: Denies belching, bloating, change in bowel habits, change in stool character, chewing difficulty, coffee ground emesis, constipation, cramping, diarrhea, dyspepsia, dysphagia, early satiety, excessive flatus, fecalincontinence, heartburn, hematemesis, hematochezia, hemorrhoids, loose stools, melena, nausea, odynophagia, rectal bleeding, tenesmus, vomiting or weight changes Physical Exam Const alert, oriented x3, no apparent distress and healthy appearing General Appearance: cooperative GI normal to inspection, nondistended, normoactive bowel sounds, soft to palpation,non-tender and non-distended Percussion: normal to percussion Rectal Exam: deferred Assessment & Plan Assessment/Plan (1) Tubular adenoma of colon: PLAN: Assessment and Plan Assessment and Plan (1) Gallstones: Status: Acute Plan: Patient is here today for f/u. She has been doing well overall. She is having constipation nausea and vomiting since being on narcotics s/p shoulder surgery. -She would like to wait to try any medications for constipation. She will only be on narcotics for one more week and is hoping this will relive her symptoms. She will call our office if she continues to have problems. -Will order liver elastography to monitor fatty liver. Last stiffness was wnl [id number]. This will also be helpful to see if she still has gallstones. She has beentaking ursodiol. -She has a hx of tubular adenomas. Last colonoscopy was 07/2021. Recommendation per chart was to have another in 5 years. Since she is having these problems shewould like to get it sooner. -We will schedule her for colonoscopy and she will f/u after this (2) Fatty liver: Status: Chronic Orders: 09/29/24 1019 <Electronically signed by Doug Tamez DO> Cosigner Signature (if applicable): CC: Dr. Gabbie Grady MD; Doug Tamez DO~ Signed [facility] Work Phone: 1(680) 374-915103-24-2025 Evaluation note* Diagnosis Onset Date Resolution Status Admit Date Tubular adenoma of colon acute September 29, 2024 9:56am [facility] Work Phone: 1(626) 381-493703-24-2025 Evaluation note* Diagnosis Onset Date Resolution Status Admit Date Tubular adenoma of colon acute September 29, 2024 9:56am Diarrhea acute January 01 12:54pm [facility] Work Phone: [phone] Evaluation note* Diagnosis Onset Date Resolution Status Admit Date Tubular adenoma of colon acute September 29, 2024 9:56am Diarrhea acute January 01 12:54pm Fatty liver chronic January 01 12:54pm [facility] Work Phone: 1(531) 247-136603-24-2025 Procedure note [facility] Medical Records Department [address] [place] [address] Colonoscopy Report MR#: [id number] Acct: [id number] Name: CRYSTAL THAKUR Rep #:[id number] : 1960 64 From: Doug Tamez DO PCP: Dr. Gabbie Grady MD Status:[facility] Patient Name: Crystal Thakur Procedure Date: 09/29/2024 11:16 AM Date of : 1960 Age: 64 Procedure: Colonoscopy Indications: Screening for colorectal malignant neoplasm Providers: Doug Tamez DO Medicines: Monitored Anesthesia Care Patient Profile: This is a 64 year old female. Refer to note in patient chart for documentation of history and physical. Last Colonoscopy: 5 years ago. Complications: No immediate complications. Procedure: Pre-Anesthesia Assessment: - Prior to the procedure, a History and Physical was performed, and patient medications and allergies were reviewed. The patient is competent. The risks and benefits of the procedure and the sedation options and risks were discussed with the patient. All questions were answered and informed consent was obtained. Patient identification and proposed procedure were verified by the physician in the pre-procedure area. Mental Status Examination: alert and oriented. Airway Examination: normal oropharyngeal airway and neck mobility. Respiratory Examination: clear to auscultation. CV Examination: normal. Prophylactic Antibiotics: The patient does not require prophylactic antibiotics. Prior Anticoagulants: The patient has taken no anticoagulant or antiplatelet agents except for NSAID medication. ASA Grade Assessment: II - A patient with mild systemic disease. After reviewing the risks and benefits, the patient was deemed in satisfactory condition to undergo the procedure. The anesthesia plan was to use monitored anesthesia care (MAC). Immediately prior to administration of medications, the patient was re-assessed for adequacy to receive sedatives. The heart rate, respiratory rate, oxygen saturations, blood pressure, adequacy of pulmonary ventilation, and response to care were monitored throughout the procedure. The physical status of the patient was re-assessed after the procedure. After I obtained informed consent, the scope was passed under direct vision. Throughout the procedure, the patient's blood pressure, pulse, and oxygen saturations were monitored continuously. The colonoscope was introduced through the anus and advanced to the cecum, identified by the appendiceal orifice, ileocecal valve and palpation. The colonoscopy was performed without difficulty. The patient tolerated the procedure well. Scope In: 11:26:03 AM Scope Withdrawal Time 0 hours 11 minutes 37 seconds Scope Out: 11:41:57 AM Total Procedure Duration Time 0 hours 15 minutes 54 seconds Findings: The perianal and digital rectal examinations were normal. Multiple small and large-mouthed diverticula were found in the recto-sigmoid colon and sigmoid colon. A 5 mm polyp was found in the sigmoid colon. The polyp was sessile. The polyp was removed with a cold biopsy forceps. Resection and retrieval were complete. Verification of patient identification for the specimen was done. Estimated blood loss was minimal. The exam was otherwise without abnormality on direct and retroflexion views. Impression: - Diverticulosis in the recto-sigmoid colon and in the sigmoid colon. - One 5 mm polyp in the sigmoid colon, removed with a cold biopsy forceps. Resected and retrieved. - The examination was otherwise normal on direct and retroflexion views. Recommendation: - Discharge patient to home. - Resume previous diet. - Continue present medications. - Await pathology results. - Repeat colonoscopy in 5 years for surveillance. Procedure Code(s): --- Professional --- 16476, Colonoscopy, flexible; with biopsy, single or multiple CPT copyright 2021 [employer]. All rights reserved. The codes documented in this report are preliminary and upon chief data officer review may be revised to meet current compliance requirements. Doug Tamez DO 09/29/2024 11:48:33 AM This report has been signed electronically. Number of Addenda: 0 Note Initiated On: 09/29/2024 11:16 AM 09/29/24 1148 Date _ Doug Tamez DO Damariignkamilla Signature: Date (if indicated) CC: Dr. 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 Gabbie Grady MD Status:RE G [facility] 09/29/2024 Gabbie Grady [address] [place] [address] Re : Colonoscopy procedure for Crystal Blaze Dear Dr. Grady This procedure was performed on Sunday, September 29, 2024. My impressions and recommendations are as follows: Impressions : - Diverticulosis in the recto-sigmoid colon and in the sigmoid colon. - One 5 mm polyp in the sigmoid colon, removed with a cold biopsy forceps. Resected and retrieved. - The examination was otherwise normal on direct and retroflexion views. Recommendations : - Discharge patient to home. - Resume previous diet. - Continue present medications. - Await pathology results. - Repeat colonoscopy in 5 years for surveillance. My findings are described in the full procedure note, which is enclosed. If I can be of further assistance, please feel free to contact me at . Sincerely, Doug Tamez DO 09/29/2024 11:48:33 AM This report has been signed electronically. 09/29/24 1148 Date _ Doug Cazaresigner Signature: Date (if indicated) CC: Dr. 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 Gabbie Grady MD Status: G [facility] Y Race: C Location: [place] [address] ASA Classification* ASA Classification ASA Classification: 3 Assessment & Plan Anesthesia* Anesthesia Assessment Anesthesia Assessment: Discussed sedation and/or anesthesia options, risks, benefits, and alternatives with patient/parents/legal guardian/POA. Questions invited. The patient/parents/legal guardian/POA seems to understand and agrees to proceedwith anesthesia plan. Reviewed the physical assessment, medical history, allergy history and patient home medications list prior to surgery/procedure/anesthetic and documented any changes. Performed airway and anesthesia risk assessments. Anesthesia Type Anesthesia Type: MAC History Source History Obtained from:: Patient and Chart Anesthesia Focused Assessment* Temperature: 97.3 F Pulse Rate: 71 Blood Pressure: 146/84 Respiratory Rate: 16 Pulse Ox: 100 Oxygen Delivery Method: Room Air Airway Assessment Mouth opens: >3 cm Mallampati Score: III Teeth Condition: Dentures (Patient has full upper and lower dentures.) Neck Range of motion (ROM): Limited ROM (Somewhat decreased extension) Focused Labs Anesthesia Preop lab: CBC WBC 11.5 K/mm3 (4.4-11.0) H 09/15/21 15:07 2 RBC 4.98 M/mm3 (4.2-5.4) 09/15/21 15:07 09/15/21 Hgb 14.0 g/dL (12.0-15.0) 09/15/21 15:07 09/15/21 Hct 43.4 % (37-47) 09/15/21 15:07 09/15/21 Plt Count 282 K/mm3 (150-450) 09/15/21 15:07 09/15/21 CHEMISTRY Potassium 4.3 mmol/L (3.5-5.1) 09/15/21 15:07 09/15/21 Sodium 137 mmol/L (136-145) 09/15/21 15:07 09/15/21 BUN 23 mg/dL (7-18) H 09/15/21 15:07 09/15/21 Creatinine 1.12 mg/dL (0.55-1.02) H 09/15/21 15:07 Glucose 138 mg/dL (74-106) H 09/15/21 15:07 09/15/21 POC Glucose 137 mg/dL (74-106) H 09/29/24 10:29 09/29/24 COAG Pre-Assessment Diagnosis/Proposed Procedure Planned Operative Procedure(s): Colonoscopy Anesthesia History Anesthesia History - administrative court justice: Anesthesia History - administrative court justice Hx Hospitalization No 08/01/21 09:17 Any Problems With Anesthesia No 08/01/21 09:17 Cholinesterase deficiency No 08/01/21 09:17 You/Your Family Experience No 08/01/21 09:17 fever (hyperthermia) with Relationship Recent Exposure to Contagious No 09/29/24 10:18 Disease Does patient have nerve No 08/01/21 09:17 stimulator Patient instructed to have device shut off --Does patient have Pacemaker No 09/29/24 10:18 or ICD? When Was Last Pacemaker Check QUESTION #4 FULL TEXT: You/Your Family Experience fever (hyperthermia) with Anesthesia Last Oral Intake Last Oral intake: Last Oral Intake NPO since 06:00 09/29/24 10:18 Meds taken in AM with sips of Yes 09/29/24 10:18 water? Meds patient instructed to take am of surgery Any additional information?: Yes NPO since: 06:30 (Patient finished prep at 6:30AM.) Meds taken in AM with sips of water?: Yes PONV PONV - administrative court justice: PONV - administrative court justice Female HX of Motion Sickness HX of N/V After Surgery Non-Smoker Duration of Surgery greater than 60 minutes Number of Risk Factors PONV Score Height & Weight Height & Weight: Anesthesia: Height & Weight Height 5 ft 6 in 09/29/24 10:18 Weight: 85 kg 09/29/24 10:18 Body Mass Index (BMI) 30.2 09/29/24 10:18 Respiratory Assessment Respiratory Assessment - administrative court justice: Respiratory Tract Infection Hx - administrative court justice Hx Respiratory Tract Infection No 08/01/21 09:17 Any additional information?: Yes Hx Respiratory Tract Infection: Yes (Patient had a recent chest cold. Still recovering.) STOP Sleep Apnea STOP Sleep Apnea - administrative court justice: STOP Sleep Apnea - administrative court justice Hx Hypertension Yes: CONTROLLED WITH MEDS 08/01/21 09:17 Hx Sleep Apnea No 08/01/21 09:17 CPAP BIPAP Do you snore loudly (louder than talking or can be heard Do you often feel tired/ fatigued/ sleepy during daytime? Has anyone observed you stop breathing during sleep? STOP Results QUESTION #5 FULL TEXT : Do you snore loudly (louder than talking or can be heard through closeddoors)? 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 Specify any problems Hx of Preganancy in last 3 Months Nurse Filling Out Transfusion & Questions: Date: Time: Patient unable to answer at this time (ie. 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 court justice: /Reproductive Hx- administrative court justice Hx Now Gestational Age (in weeks): EDC: Hx Hx Para Hx Section SAB No 08/01/21 09:17 [facility] Medical History Fibromuscular dysplasia GCA (giant cell arteritis) Type 2 diabetes mellitus Wears glasses Wears dentures Depression Anxiety Alcohol use Abrasion History of steroid therapy Diabetes Arthritis History of renal disease Hx of temporal arteritis Anemia Fatty liver Easy bruising Restless legs Back pain Migraine headache History of fibromuscular dysplasia Syncope Dietary restriction History of diverticulosis Former smoker Shortness of breath on exertion Leg cramps History of edema History of stress test Cardiology follow-up encounter History of irregular heartbeat Chest pain Hx of flexible sigmoidoscopy History of use of contraceptive intrauterine device (IUD) Heart palpitations Fibromuscular dysplasia of renal artery Controlled type 2 diabetes mellitus DRUJ (distal radioulnar joint) arthrosis, 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, thumb, degenerative Pain in joint, hand Chondromalacia of patella Dizziness and giddiness Cervicalgia Benign neoplasm of colon Edema Fibromyalgia Obesity Osteoarthrosis Esophageal reflux Hyperlipidemia HTN (hypertension) uterine ablation Rectocele Home Medications ?Medication ?Instructions ?Recorded ?Last Taken ?Type albuterol sulfate 90 mcg/actuation 2 puff inhalation Q 6H PRN SOB 07/30/20 Unknown History aerosol inhaler amlodipine 5 mg tablet 5 mg PO QHS 07/30/20 5 History aspirin 81 mg tablet,delayed 81 mg PO DAILY 07/30/20 0 09/25/24 History release (Adult Low Dose Aspirin) benzonatate 100 mg capsule 100 mg PO PRN PRN Cough Unknown History coenzyme Q10 75 mg capsule (Ultra 200 mg PO DAILY 07/10 08/29 Unknown History CoQ10) hydrochlorothiazide 50 mg tablet 25 mg PO DAILY 09/29/24 06:30 History lisinopril 20 mg tablet 40 mg PO DAILY 07/30/2009/07 06:30 History loratadine 10 mg capsule 10 mg PO DAILY PRN ALLERGIES 07/30/20 Unknown History methocarbamol 500 mg tablet 1,000 mg PO PRN PRN MUSCLE SPASMS 07/30/20 Unknown History nadolol 80 mg tablet 40 tab PO BID 07/30/2009/29 06:30 History nystatin 100,000 unit/gram topical 1 applic topical DA FIDEL PRN Skin 07/30/20 Unknown History powder Cleansing calcium carb-ergocalciferol (vit 1 tab PO DAILY Unknown History D2) 600 mg calcium-200 unit tablet omeprazole 20 mg tablet,delayed 20 mg PO DAILY 2 09/28/24 History release Bacillus coagulans-Bacillus 1 tab PO DAILY #90 tabs Unknown Rx subtilis 1 billion cell chewable tablet (up4 Probiotics-Mind and Body) ibuprofen 600 mg tablet 800 mg PO PRN PRN Pain 09/1509/28/24 History metformin 500 mg tablet,extended 500 mg PO DAILY 09/1509/27/24 History release 24hr (osmotic) vitamin B complex (B 1 tab PO DAILY 09/15/21 Unkn own History Complex-Vitamin B12 tablet) phytonadione (vitamin K1) 100 mcg 100 mcg PO DAILY Unknown History tablet Held on 09/29/24. Instructions: pt out of maria esther ursodiol 300 mg capsule See Rx Instructions .Route . COMPLEX 03/04/24 Unknown History ursodiol 300 mg capsule 300 mg PO BID #90 caps 05/0809/28/24 Rx Allergy/AdvReac Type Severity Reaction Status Date / Time gabapentin Allergy Severe Depression, Verified 09/29/24 10:14 suicidal thoughts cat dander Allergy Mild unknown Verified 09/29/24 10:14 latex Allergy Mild Redness, Verified 09/29/24 10:14 itching niacinamide Allergy Mild Facial Verified 09/29/24 10:14 Numbness rabbit dander Allergy Mild SOB Verified 09/29/24 10:14 aspartame AdvReac Mild Severe Verified 09/29/24 10:14 Headache atorvastatin AdvReac Mild Muscle Verified 09/29/24 10:14 Aches azithromycin (From Zithromax) AdvReac Mild GI upset Verified 09/29/24 10:14 doxycycline AdvReac Mild GI upset Verified 09/29/24 10:14 duloxetine (From Cymbalta) AdvReac Mild Intolerance, Verified 09/29/24 10:14 elevated BP, elevated HR erythromycin base AdvReac Mild GI upset Verified 09/29/24 10:14 monosodium glutamate AdvReac Mild Severe Verified 09/29/24 10:14 Headache niacin AdvReac Mild Intolerance Verified 09/29/24 10:14 rosuvastatin (From Crestor) AdvReac Mild Myalgia Verified 09/29/24 10:14 [place]'s wort AdvReac Mild NEEDS Verified 09/29/24 10:14 FOLLOW-UP sucralose (From Splenda AdvReac Mild Severe Verified 09/29/24 10:14 (sucralose)) Headaches Family History Other Alzheimer disease Cancer Diabetes Heart disease Hypertension Osteoarthritis Surgical History Hx of bladder repair surgery History of hysterectomy Hx of colonoscopy with polypectomy History of esophagogastroduodenoscopy (EGD) Hx of breast surgery Hx of foot surgery Hx of dilation and curettage Hx of shoulder surgery H/O vein stripping H/O umbilical hernia repair Tubal ligation status S/P TKR (total knee replacement) Social History household members: none housing: house current occupational status: employed current occupation: [employer] Smoking Status: Former smoker alcohol intake: current alcohol intake frequency: holidays/special occasions only what type of physical activity do you participate in: walking seatbelt use: always do you feel safe at home: Yes Review of Systems (Anesthesia) ROS Narrative System reviewed and no additional complaints, except as documented. 09/29/24 1112 kelsie LUIS> Date _ Freddy Gary Signature: Date CC: ~ Signed [facility]03-24-2025 History and physical note [facility] Medical Records Department [address] [place] [address] History & Physical Exam 09/29/24 1017 MR#: [id number] Acct: [id number] Name: CRYSTAL THAKUR Rep #:[id number] : 1960 64 From: Doug Tamez DO PCP: Dr. Gabbie Grady MD Status:RE G [facility] Location: [place] [address] HPI - General General Date of Admission: 10/08/24 Date of Service: 09/29/24 HPI Narrative CRYSTAL THAKUR, is a 63 F who presents for a colonoscopy Dr Tamez prescribed ursodiol to try to treat gallstones; the gallstones persistper US; they are asymptomatic. Because of hepatic steatosis we got liver elastography--liver stiffness 6.2 kpa which isF0-F1 Metavir score. Her comorbidconditions that can affect liver stiffness include obesity, DM2, hy perlipidemia.She takes prn ondansetron for occas nausea which seems random, not assoc with other symptoms. No vomiting, dysphagia, abdominal pain. She takes omeprazole forgerd, not having heartburn or acid reflux. Her bowels are good, no diarrhea or constipation, no melena or hematochezia. Daily ibuprofen 800-2400 mg per day typically, 07/2021 Colonoscopy 1-2 mm tubular adenoma, repeat in 5 yrs OV 8.27.24 patient has been doing well. Although she has been having constipation, nausea and vomiting since being on narcotic following her shouldersurgery. She is having a bowel movement about oncea day but her normal is 2-4 times per day. She has also been taking milk of mag and using a glycerin suppository as needed. She has been on narcotics before and had not had these type of symptoms before. She says she will only be on them for one more week. Overall she is feeling better than she hasin the past. [facility] Medical History Fibromuscular dysplasia GCA (giant cell arteritis) Type 2 diabetes mellitus Wears glasses Wears dentures Depression Anxiety Alcohol use Abrasion History of steroid therapy Diabetes Arthritis History of renal disease Hx of temporal arteritis Anemia Fatty liver Easy bruising Restless legs Back pain Migraine headache History of fibromuscular dysplasia Syncope Dietary restriction History of diverticulosis Former smoker Shortness of breath on exertion Leg cramps History of edema History of stress test Cardiology follow-up encounter History of irregular heartbeat Chest pain Hx of flexible sigmoidoscopy History of use of contraceptive intrauterine device (IUD) Heart palpitations Fibromuscular dysplasia of renal artery Controlled type 2 diabetes mellitus DRUJ (distal radioulnar joint) arthrosis, 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, thumb, degenerative Pain in joint, hand Chondromalacia of patella Dizziness and giddiness Cervicalgia Benign neoplasm of colon Edema Fibromyalgia Obesity Osteoarthrosis Esophageal reflux Hyperlipidemia HTN (hypertension) uterine ablation Rectocele Home Medications ?Medication ?Instructions ?Recorded ?Last Taken ?Type albuterol sulfate 90 mcg/actuation 2 puff inhalation Q 6H PRN SOB 07/30/20 Unknown History aerosol inhaler amlodipine 5 mg tablet 5 mg PO QHS 07/30/20 5 History aspirin 81 mg tablet,delayed 81 mg PO DAILY 07/30/20 0 09/25/24 History release (Adult Low Dose Aspirin) benzonatate 100 mg capsule 100 mg PO PRN PRN Cough Unknown History coenzyme Q10 75 mg capsule (Ultra 200 mg PO DAILY 07/10 08/29 Unknown History CoQ10) hydrochlorothiazide 50 mg tablet 25 mg PO DAILY 09/29/24 06:30 History lisinopril 20 mg tablet 40 mg PO DAILY 07/30/2009/07 06:30 History loratadine 10 mg capsule 10 mg PO DAILY PRN ALLERGIES 07/30/20 Unknown History methocarbamol 500 mg tablet 1,000 mg PO PRN PRN MUSCLE SPASMS 07/30/20 Unknown History nadolol 80 mg tablet 40 tab PO BID 07/30/2009/29 06:30 History nystatin 100,000 unit/gram topical 1 applic topical DA FIDEL PRN Skin 07/30/20 Unknown History powder Cleansing calcium carb-ergocalciferol (vit 1 tab PO DAILY Unknown History D2) 600 mg calcium-200 unit tablet omeprazole 20 mg tablet,delayed 20 mg PO DAILY 2 09/28/24 History release Bacillus coagulans-Bacillus 1 tab PO DAILY #90 tabs Unknown Rx subtilis 1 billion cell chewable tablet (up4 Probiotics-Mind and Body) ibuprofen 600 mg tablet 800 mg PO PRN PRN Pain 09/1509/28/24 History metformin 500 mg tablet,extended 500 mg PO DAILY 09/1509/27/24 History release 24hr (osmotic) vitamin B complex (B 1 tab PO DAILY 09/15/21 Unkn own History Complex-Vitamin B12 tablet) phytonadione (vitamin K1) 100 mcg 100 mcg PO DAILY Unknown History tablet Held on 09/29/24. Instructions: pt out of maria esther ursodiol 300 mg capsule See Rx Instructions .Route . COMPLEX 03/04/24 Unknown History ursodiol 300 mg capsule 300 mg PO BID #90 caps 05/0809/28/24 Rx Allergy/AdvReac Type Severity Reaction Status Date / Time gabapentin Allergy Severe Depression, Verified 09/29/24 10:14 suicidal thoughts cat dander Allergy Mild unknown Verified 09/29/24 10:14 latex Allergy Mild Redness, Verified 09/29/24 10:14 itching niacinamide Allergy Mild Facial Verified 09/29/24 10:14 Numbness rabbit dander Allergy Mild SOB Verified 09/29/24 10:14 aspartame AdvReac Mild Severe Verified 09/29/24 10:14 Headache atorvastatin AdvReac Mild Muscle Verified 09/29/24 10:14 Aches azithromycin (From Zithromax) AdvReac Mild GI upset Verified 09/29/24 10:14 doxycycline AdvReac Mild GI upset Verified 09/29/24 10:14 duloxetine (From Cymbalta) AdvReac Mild Intolerance, Verified 09/29/24 10:14 elevated BP, elevated HR erythromycin base AdvReac Mild GI upset Verified 09/29/24 10:14 monosodium glutamate AdvReac Mild Severe Verified 09/29/24 10:14 Headache niacin AdvReac Mild Intolerance Verified 09/29/24 10:14 rosuvastatin (From Crestor) AdvReac Mild Myalgia Verified 09/29/24 10:14 Huan's wort AdvReac Mild NEEDS Verified 09/29/24 10:14 FOLLOW-UP sucralose (From Splenda AdvReac Mild Severe Verified 09/29/24 10:14 (sucralose)) Headaches Family History Other Alzheimer disease Cancer Diabetes Heart disease Hypertension Osteoarthritis Surgical History Hx of bladder repair surgery History of hysterectomy Hx of colonoscopy with polypectomy History of esophagogastroduodenoscopy (EGD) Hx of breast surgery Hx of foot surgery Hx of dilation and curettage Hx of shoulder surgery H/O vein stripping H/O umbilical hernia repair Tubal ligation status S/P TKR (total knee replacement) Social History household members: none housing: house current occupational status: employed current occupation: [employer] Smoking Status: Former smoker alcohol intake: current alcohol intake frequency: holidays/special occasions only what type of physical activity do you participate in: walking seatbelt use: always do you feel safe at home: Yes ROS Constitutional Constitutional: Denies fatigue, fever(s), poor appetite, weight gain or weight loss Gastrointestinal Gastrointestinal: Denies belching, bloating, change in bowel habits, change in stool character, chewing difficulty, coffee ground emesis, constipation, cramping, diarrhea, dyspepsia, dysphagia, earlysatiety, excessive flatus, fecalincontinence, heartburn, hematemesis, hematochezia, hemorrhoids, loose stools, melena, nausea, odynophagia, rectal bleeding, tenesmus, vomiting or weight changes Physical Exam Const alert, oriented x3, no apparent distress and healthy appearing General Appearance: cooperative GI normal to inspection, nondistended, normoactive bowel sounds, soft to palpation,non-tender and non-distended Percussion: normal to percussion Rectal Exam: deferred Assessment & Plan Assessment/Plan (1) Tubular adenoma of colon: PLAN: Assessment and Plan Assessment and Plan (1) Gallstones: Status: Acute Plan: Patient is here today for f/u. She has been doing well overall. She is having constipation nausea and vomiting since being on narcotics s/p shoulder surgery. -She would like to wait to try any medications for constipation. She will only be on narcotics for one more week and is hoping this will relive her symptoms. She will call our office if she continuesto have problems. -Will order liver elastography to monitor fatty liver. Last stiffness was wnl [id number]. This will also be helpful to see if she still has gallstones. She has beentaking ursodiol. -She has a hx of tubular adenomas. Last colonoscopy was 07/2021. Recommendation per chart was to have another in 5 years. Since she is having these problems shewould like to get it sooner. -We will schedule her for colonoscopy and she will f/u after this (2) Fatty liver: Status: Chronic Orders: 09/29/24 1019 Cosigner Signature (if applicable): CC: Dr. Gabbie Grady MD; Doug Tamez DO~ Signed [facility]03-24-2025 [facility] Medical Records Department [address] [place] [address] History Physical Exam 09/29/24 1017 MR#: [id number] Acct: [id number] Name: CRYSTAL THAKUR Rep #: [id number] : 1960 64 From: Doug Tamez DO PCP: Dr. Gabbie Grady MD Status:REG [facility] Location: [place] [address] HPI - General General Date of Admission: 10/08/24 Date of Service: 09/29/24 HPI Narrative CRYSTAL THAKUR, is a 63 F who presents for a colonoscopy Dr Tamez prescribed ursodiol to try to treat gallstones; the gallstones persist per US; they are asymptomatic. Because of hepatic steatosis we got liver elastography--liver stiffness 6.2 kpa which is F0-F1 Metavir score. Her comorbid conditions that can affect liver stiffness include obesity, DM2, hyperlipidemia. She takes prn ondansetron for occas nausea which seems random, not assoc with other symptoms. No vomiting, dysphagia, abdominal pain. She takes omeprazole for gerd, not having heartburn or acid reflux. Her bowels are good, no diarrhea or constipation, no melena or hematochezia. Daily ibuprofen 800-2400 mg per day typically, 07/2021 Colonoscopy 1-2 mm tubular adenoma, repeat in 5 yrs OV 8.27.24 patient has been doing well. Although she has been having constipation, nausea and vomiting since being on narcotic following her shoulder surgery. She is having a bowel movement about once a day but her normal is 2-4 times per day. She has also been taking milk of mag and using a glycerin suppository as needed. She has been on narcotics before and had not had these type of symptoms before. She says she will only be on them for one more week. Overall she is feeling better than she has in the past. [facility] Medical History Fibromuscular dysplasia GCA (giant cell arteritis) Type 2 diabetes mellitus Wears glasses Wears dentures Depression Anxiety Alcohol use Abrasion History of steroid therapy Diabetes Arthritis History of renal disease Hx of temporal arteritis Anemia Fatty liver Easy bruising Restless legs Back pain Migraine headache History of fibromuscular dysplasia Syncope Dietary restriction History of diverticulosis Former smoker Shortness of breath on exertion Leg cramps History of edema History of stress test Cardiology follow-up encounter History of irregular heartbeat Chest pain Hx of flexible sigmoidoscopy History of use of contraceptive intrauterine device (IUD) Heart palpitations Fibromuscular dysplasia of renal artery Controlled type 2 diabetes mellitus DRUJ (distal radioulnar joint) arthrosis, 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, thumb, degenerative Pain in joint, hand Chondromalacia of patella Dizziness and giddiness Cervicalgia Benign neoplasm of colon Edema Fibromyalgia Obesity Osteoarthrosis Esophageal reflux Hyperlipidemia HTN (hypertension) uterine ablation Rectocele Home Medications ???Medication ???Instructions ???Recorded ???Last Taken ???Type albuterol sulfate 90 mcg/actuation 2 puff inhalation Q6H PRN SOB Unknown History aerosol inhaler amlodipine 5 mg tablet 5 mg PO QHS 07/30/20 09/28/24 Hist ory aspirin 81 mg tablet,delayed 81 mg PO DAILY 07/30/20 09/25/24 H istory release (Adult Low Dose Aspirin) benzonatate 100 mg capsule 100 mg PO PRN PRN Cough 07/30/20 U nknown History coenzyme Q10 75 mg capsule (Ultra 200 mg PO DAILY 07/30/20 Unknown History CoQ10) hydrochlorothiazide 50 mg tablet 25 mg PO DAILY 07/30/20 09/29/24 0 6:30 History lisinopril 20 mg tablet 40 mg PO DAILY 07/30/20 09/29/24 0 6:30 History loratadine 10 mg capsule 10 mg PO DAILY PRN ALLERGIES 07/30 Unknown History methocarbamol 500 mg tablet 1,000 mg PO PRN PRN MUSCLE SPASMS 07/30/20 Unknown History nadolol 80 mg tablet 40 tab PO BID 07/30/20 09/29/24 06 :30 History nystatin 100,000 unit/gram topical 1 applic topical DAILY PRN Skin 07/30/20 Unknown History powder Cleansing calcium carb-ergocalciferol (vit 1 tab PO DAILY 08/01/21 Unknown Hi story D2) 600 mg calcium-200 unit tablet omeprazole 20 mg tablet,delayed 20 mg PO DAILY 08/01/21 09/28/24 H istory release Bacillus coagulans-Bacillus 1 tab PO DAILY #90 tabs 08/22/21 U nknown Rx subtilis 1 billion cell chewable tablet (up4 Probiotics-Mind and Body) ibuprofen 600 mg tablet 800 mg PO PRN PRN Pain 09/15/21 History metformin 500 mg tablet,extended 500 mg PO DAILY 09/15/21 09/27/24 History release 24hr (osmotic) vitamin B complex (B 1 tab PO DAILY 09/15/21 Unknown Hi story Complex-Vitamin B12 tablet) phytonadione (vitamin K1) 100 mcg 100 mcg PO DAILY 03/04/24 Unknown History tablet Held on 09/29/24. Instructions: pt out of maria esther diallo (more content not included)...[facility]03-11-2025 Telephone encounter Note* Telephone Encounter - Kinjal Mistry MA - 09/16/2024 4:21 PM EDT Pt sent mychart message stating that she does not need refills on medication, still has refill remaining at pharmacy. Kinjal Mistry MA [facility]03-11-2025 Miscellaneous Notes* Telephone Encounter - Kinjal Mistry MA - 09/16/2024 4:21 PM EDT Pt sent Boqiihart message stating that she does not need refills on medication, still has refill remaining at pharmacy. Kinjal Mistry MA * Telephone Encounter - Cande Zacarias MA - 09/16/2024 4:13 PM EDT Per pt's medication list pt has active refills available. Pt Rx 05/26/24 18 g w/5 refills. Advised pt to reach out to Pharmacy to see if they an Rx on file or if she has remaining refills with the Pharmacy. If not to update office. Cande Zacarias MA documented [facility] Miscellaneous Notes* Telephone Encounter - Kinjal Mistry MA - 09/16/2024 4:21 PM EDT Pt sent mychart message that she does not need medication refilled. Has refills still remaining at pharmacy. Kinjal Mistry MA documented in [facility]Tr[facility] Telephone encounter Note * Telephone Encounter - Kinjal Mistry MA - 09/16/2024 4:21 PM EDT Pt sent mychart message that she does not need medication refilled. Has refills still remaining at pharmacy. Kinjal Mistry MA [facility]03-11-2025 Telephone encounter Note* Telephone Encounter - Cande Zacarias MA - 09/16/2024 4:13 PM EDT Per pt's medication list pt has active refills available. Pt Rx 05/26/24 18 g w/5 refills. Advised pt to reach out to Pharmacy to see if they an Rx on file or if she has remaining refills with the Pharmacy. If not to update office. Cande Zacarias MA [address]25-2025 Telephone encounter Note* Telephone Encounter - Emma Perdomo RN - 09/02/2024 4:36 PM EST Patient notified. She will go to [facility] this Sunday morning. Emma Perdomo RN [facility]02-25-2025 Miscellaneous Notes* Telephone Encounter - Emma Perdomo RN - 09/02/2024 4:36 PM EST Patient notified. She will go to [facility] this Sunday morning. Emma Perdomo RN * Telephone Encounter - Emma Perdomo RN - 09/02/2024 4:33 PM EST Images from the original note were not included. Lance Moctezuma MD [place], Trisha, RN Please notify patient to get her potassium level drawn at the [facility] [place] morning. The bactrim could interact with her lisinopril and I want to make sure her levels stay normal. Thanks! Lance documented in this encounterTr[facility] Telephone encounter Note * Telephone Encounter - Emma Perdomo RN - 09/02/2024 4:33 PM EST Images from the original note were not included. Lance Moctezuma MD [place], Trisha, RN Please notify patient to get her potassium level drawn at the [facility] [place] morning. The bactrim could interact with her lisinopril and I want to make sure her levels stay normal. Thanks! Lance [facility]02-25-2025 NoteHNO ID: [id number] Author: LANCE MOCTEZUMA MD Service: ? Author Type: Physician Type: Progress Notes Filed: 09/02/2024 16:25 Note Text: Crystal Thakur is a 64 year old female who presents today for incision and drainage of a perineal abscess. UNIVERSAL PROTOCOL / SAFETY CHECKLIST Procedure to be Performed: incision and drainage of a perineal abscess Sign In: A Moment of CARE was completed. Appropriate PPE (Personal Protective Equipment) worn by all providers involved with the procedure. Special equipment not required. Patient/Surrogate Stated/Verified: Patient name, Date of , Relevant allergies, and The intended procedure Time Out: Relevant labs, photos, and/or imaging studies are not applicable. Intended patient and procedure match the source document(s) (e.g. consent, HANDP, associated studies [imaging, pathology]) match the intended patient and procedure. Consent obtained and matches the intended procedure. Yes. Correct side/site is not applicable. Medications required for this procedure are verified. Fire risk assessed and is not applicable. Implants: are not applicable. Sign Out: Specimens are all correctly labeled and sent. All instruments, equipment, possible retained foreign bodies are accounted for. Yes. The post-procedure plan of care has been communicated to the patient or surrogate. PROCEDURE NOTE: GROSS LESIONS: Yes, fluctuant perineal abscess/boil Procedure : Area was cleansed with betadine and anesthetized with 2mL 1% lidocaine with 1:100,000 epi. Stab incision made with scalpel. Wound culture collected of purulent drainage Incision packed with packing tape. HEMOSTASIS: Obtained with pressure Procedure Summary: Patient tolerated procedure well. ASSESSMENT: IANDD of perineal abscess PLAN: Specimens labeled and sent to Pathology. Will notify patient of results in 1-2 weeks. Post-procedure instructions reviewed and written material given to the patient. Patient to removed packing tape in 48 hours. Bactrim sent to pharmacy. Patient contacted after visit that recommend potassium level assessment due to possible medication interaction. Lance Moctezuma, [facility]02-25-2025 History of Present illness Narrative* Lance Moctezuma MD - 09/02/2024 9:17 AM EST Crystal Thakur is a 64 year old female who presents today for incision and drainage of a perinealabscess. UNIVERSAL PROTOCOL / SAFETY CHECKLIST Procedure to be Performed: incision and drainage of a perineal abscess Sign In: A Moment of CARE was completed. Appropriate PPE (Personal Protective Equipment) worn by all providers involved with the procedure. Special equipment not required. Patient/Surrogate Stated/Verified: Patient name, Date of , Relevant allergies, and The intended procedure Time Out: Relevant labs, photos, and/or imaging studies are not applicable. Intended patient and procedure match the source document(s) (e.g. consent, H&P, associated studies [imaging, pathology]) match the intended patient and procedure. Consent obtained and matches the intended procedure. Yes. Correct side/site is not applicable. Medications required for this procedure are verified. Fire risk assessed and is not applicable. Implants: are not applicable. Sign Out: Specimens are all correctly labeled and sent. All instruments, equipment, possible retained foreign bodies are accounted for. Yes. The post-procedure plan of care has been communicated to the patient or surrogate. PROCEDURE NOTE: GROSS LESIONS: Yes, fluctuant perineal abscess/boil Procedure : Area was cleansed with betadine and anesthetized with 2mL 1% lidocaine with 1:100,000 epi. Stab incision made with scalpel. Wound culture collected of purulent drainage Incision packed with packing tape. HEMOSTASIS: Obtained with pressure Procedure Summary: Patient tolerated procedure well. ASSESSMENT: I&D of perineal abscess PLAN: Specimens labeled and sent to Pathology. Will notify patient of results in 1-2 weeks. Post-procedure instructions reviewed and written material given to the patient. Patient to removed packing tape in 48 hours. Bactrim sent to pharmacy. Patient contacted after visit that recommend potassium level assessment due to possible medication interaction. Lance Moctezuma MD documented in this encounterTr[facility] Instructions* Patient Instructions* Cande Zacarias MA - 07/03/2024 1:51 PM EST Regarding Vit D3 and Calcium for osteopenia, check with Pharmacist on regimen that would work to equal dosage. May have a better option for smaller pills that would be easier to swallow. documented in this encounterTr[facility]12-[facility] History of Present illness Narrative* Gabbie Grady MD - 07/03/2024 1:20 PM EST Chief Complaint Patient presents with: F/U 6 Month HPI Crystal Thakur is a 64 year old female who presents here today for 6 month follow up. Here today for her routine follow up. Labs currently in process. GI/Uro - Notes hx of gallstones and fatty liver disease. Does have occasional bouts of gassiness and nausea. Reports BM's overall normal. Is on 3 year Colonoscopy screening through Dr. Tamez due to hx of tubular adenoma. Is scheduled to have this next month. Hx of kidney stones, taking Ursodiol 300 mg 1 pill BID. GERD - Reflux sx controlled on Prilosec 20 mg daily. Lipid: No cholesterol meds as she's not tolerated in the past, but is taking ASA 81 mg daily. [place] watch diet by eating a mediterranean diet and eating low carb. Tries to avoid foods that can cause inflammation. Tries to stay active during the summer months, less active in the colder months. Has 14 chickens she cares for. DM: Checking BS daily with her Hugh 4-6 x per day or more. Reports having issues with Hugh 2 system and Pharmacy said the 2 system is not commonly used and recommended switching to the 3. FBS rangebetween 80-100, notes sugars have been a little higher lately, this am was 120. No lows lately, buthas had some over the past 6 months, generally occurring when she's sleeping. Does have neuropathy in feet. Currently on Metformin 500 mg 1-2 pills daily. HTN: Checks her BP at home, states it's been better (still higher) since being put on Clonidine. Generally BP around 130-140/70-80. Taking Norvasc 10 mg daily, HCTZ 25 mg daily, Clonidine 0.1 mg 1 tab po bid daily, Nadolol 40 mg 1 pill BID and Lisinopril 20 mg 2 pills once daily. No chest pains, dizziness, or SOB. Discussed Nephrology evaluation due to history of FMD of renal arteries and HTN; she will check locally for provider. Memory: Has improved, will be forgetful at times. Rheum: Hx of GCA. Previously took Prednisone; has been off for 15 months and doing well.Takes Nortriptyline 25 mg daily. Fibro: Takes Ibuprofen 800 mg 1 tab po every 6 hours and Robaxin 500 mg 2 tabs po TID Osteopenia - Was advised to take Calcium + D3 due to osteopenia. Is struggling with taking large pills as they get stuck and they will come up or spit them out. Occasionally they stay stuck and she will need to continue swallowing or eat something. States this recently started. Wondering if there is something else she can take or other suggestions. Ortho - Had L shoulder cuff repair surgery and bicep tendonesis done mid January by Dr. Vivar. Overall reports occasional pain with sleeping on it. Did complete PT and is now doing home exercises. Has pretty good ROM. Now wearing a wrist splint on her right wrist after doing some yard work. Was not able to get in to see Dr. Soriano so she saw [facility] who recommended wearing wrist splintfor 4 weeks. No noticeable improvement at this time. Does have some issues with OTC Vitamin B Complex medication. Reports it makes her nauseas. Has tried switching and taking it at night but not improving. Has changed brands with no improvement. Reports ongoing issues with her sinuses and feeling congested that come on. Has been seen in the past and was told it was viral. Feels her ears are plugged and may need to be cleaned out. Has seen [facility] for this in the past. Uses Claritin 10 mg prn. HM - Declines Flu, Covid, RSV, Shingles and Pneumonia vaccine. Is due for DM Eye exam this month, will call to schedule this. Mamm screening in November and January 2024. Past medical history, appointments, medications, allergies reviewed. 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; follows with [facility] clinic Fibromyalgia Giant cell arteritis (HCC) 2020 Heart palpitations nadalol helps Incomplete uterovaginal prolapse Left shoulder pain Obesity, unspecified Osteoarthrosis, unspecified whether generalized or localized, lower leg bilateral knees > hips Other and unspecified hyperlipidemia 1998 has been on meds in past, had tolerated Lipitor but afraid of statins Phlebitis and thrombophlebitis of superficial vessels of lower extremities 3rd child 1985, right leg Renal stones Varicose veins of other sites 2006 h/o varicose veins onset with first age of 20, had total of 4 pregnancies last was twins.First Vein stripping right leg surgery was [facility] at [facility] [facility], Second surgery 1993 to left leg (h/o hernia repair reason for one leg at a time). Here for possible laser surgery to remove lumpy and rope type veins. Previous Surgical History PAST SURGICAL HISTORY Procedure Laterality Date COLSC FLX W/RMVL OF TUMOR POLYP LESION SNARE TQ 01/14/2010 DILATION & CURETTAGE DX&/THER NONOBSTETRIC 2005 Dilation & curettage-HYPERPLASIA, likely will have hysterectomy within next year EGD TRANSORAL BIOPSY SINGLE/MULTIPLE 01/14/2010 EXC CYST/ABERRANT BREAST TISSUE OPEN 1/> LESION 01/03/2010 Left breast, benign FASCIECTOMY PLANTAR FASCIA PARTIAL SPX 1992 FOOT Left 1989' plantar fasciitis release HYSTERECTOMY HX 05/03/2020 TVH, uterosacral vaginal vault suspension, A/P repair IUD INSERTION (HYDRAULIC TESTER DEPT)_*FL 05/14/2008 Mirena, removed JOINT REPLACEMENT HX total right knee LIG/TRNSXJ FLP TUBE ABDL/VAG APPR UNI/BI 1988 Tubal ligation NOVASURE 01/2010 PAST SURGICAL HISTORY OF 1984 EXPLORATORY LAP PAST SURGICAL HISTORY OF 1992 BILAT LEG-VEIN STRIPPING PAST SURGICAL HISTORY OF 10/2007, 12/2007 Bilat leg-vein stripping PAST SURGICAL HISTORY OF Right 01/24/2021 Right bicep repair PAST SURGICAL HISTORY OF Right 2018 TKA REMOVE INTRAUTERINE DEVICE 2012 Expelled 3 weeks after insertion REPAIR INGUINAL HERNIA Bilateral 08/30/2022 laparoscopic repair with mesh ROTATOR CUFF REPAIR Right bicept reattachment RPR UMBILICAL HRNA 5 YRS/> REDUCIBLE 1993, 1989, 2007 Repaired 3 Times VAGINOSCOPY 09/25/2013 LSIL Family History FAMILY HISTORY Problem Relation Age of Onset Lipids Mother High Cholesterol Hypertension Mother Osteoporosis Mother Arthritis Mother Cataract Mother resolved with surgery other (Other) Mother Meniere's Skin Cancer Mother Psychiatry Father depression, committed suicide age 49 Osteoporosis Maternal Grandmother Thyroid Maternal Grandmother Cancer Maternal Grandfather leukemia Heart Maternal Grandfather Alzheimer's Disease Paternal Grandmother Thyroid Daughter Strabismus Daughter other (turners) Daughter other (aortic stenosis) Daughter Thyroid Daughter other (celiac disease) Daughter other (Fibromyalgia) Daughter other (MVP) Daughter Thyroid Daughter other (MVP) Daughter Hypertension Son other (hypogonadism) Son other (osteoarthritis) Son other (IBS) Son Diabetes Paternal Aunt Anesthesia Problems No Family History Patient Allergies ALLERGIES Allergen Reactions Cymbalta [Duloxetin* Other: See Comments Intolerance, elevated BP, pulse Keflex [Cephalexin] GI Upset Bloating and tears up stomach Monosodium Glutamat* Other: See Comments Severe headache Oxycodone Other: See Comments Heart palpitations Rabbit Dander Shortness of Breath Huan's Wort Other: See Comments Elevated BP Atorvastatin Myalgia Muscle Aches Crestor [Rosuvastat* Myalgia Gabapentin Other: See Comments Depression, suicidal thoughts Niacin Intolerance Facial numbness Niacinamide Other: See Comments Facial Numbness Cats Shortness of Breath Aspartame Other: See Comments Severe headache Doxycycline GI Upset Erythromycin GI Upset Glutamic Acid Unknown Patient is not familiar with this product Latex Itching Redness Sucralose Unknown Zithromax [Azithrom* GI Upset GI Current Medications Current Outpatient Medications on File Prior to Visit Medication Sig nortriptyline (PAMELOR) 25 mg capsule Take 1 capsule by mouth daily at bedtime. albuterol HFA (PROVENTIL HFA, VENTOLIN HFA) 90 mcg/actuation inhaler Inhale 2 Puffs as instructed every 4 hours as needed. nystatin (MYCOSTATIN) powder Apply 1 application to affected area as needed. nadolol (CORGARD) 80 mg tablet Take 1 tablet by mouth two times a day. cloNIDine HCl (CATAPRES) 0.1 mg tablet Take 1 tablet by mouth two times a day. vitamin E mixed/tocotrienol (VITAMIN E COMPLEX ORAL) Take by mouth. methocarbamol (ROBAXIN) 500 mg tablet Take 2 tablets by mouth three times a day. As needed for pain ibuprofen (MOTRIN) 800 mg tablet Take 1 tablet by mouth every 6 hours as needed for pain. FREESTYLE HUGH 14 DAY SENSOR kit apply NEW SENSOR EVERY 14 DAYS TO UPPER ARM docusate sodium (COLACE) 100 mg capsule take 1 capsule by mouth twice a day blood sugar diagnostic (TRUE METRIX GLUCOSE TEST STRIP) test strip Use 4-6 times daily to check blood sugar. Dx:E11.9 insulin:No metFORMIN ER (GLUCOPHAGE XR) 500 mg 24 hr tablet Take 1 tablet by mouth daily with breakfast. ondansetron (ZOFRAN) 4 mg tablet Take 1 tablet by mouth every 8 hours as needed. Lactobacillus acidoph-pectin 75 million cell -100 mg cap Take 1 capsule by mouth once daily. VITAMIN B COMPLEX ORAL Take by mouth once daily. omeprazole (PRILOSEC) 20 mg capsule Take 1 capsule by mouth daily before breakfast. 1/2 hr before meal. hydroCHLOROthiazide 25 mg tablet Take 1 tablet by mouth once daily. lisinopril (ZESTRIL) 20 mg tablet Take 2 tablets by mouth once daily. coenzyme Q10 (CO Q-10) 100 mg cap capsule Take 2 capsules by mouth once daily. amLODIPine (NORVASC) 10 mg tablet Take 1 tablet by mouth once daily. VITAMIN K2 ORAL Take 100 mcg by mouth once daily. Milk Thistle 150 mg cap Take 1 capsule by mouth once daily. benzonatate (TESSALON PERLE) 100 mg capsule Take 1 capsule by mouth three times daily as needed forcough. calcium carbonate/vitamin D3 (CALCIUM WITH VITAMIN D ORAL) Take 1 tablet by mouth twice daily. 600 mg calcium with 1000mg vitamin D3 aspirin, enteric coated (ASPIR-LOW) 81 mg EC tablet Take 1 tablet by mouth once daily. ursodiol (ACTIGALL) 300 mg capsule Take 300 mg by mouth twice daily. lancets (FREESTYLE LANCETS) 28 gauge misc Test blood sugar(s) one times daily. Dx: Type 2 DM - Controlled E11.9 Insulin: No loratadine (CLARITIN) 10 mg ORAL tablet Take 1 tablet by mouth once daily. (Patient taking differently: Take 10 mg by mouth as needed.) No current facility-administered medications on file prior to visit. Social History Social History Tobacco Use Smoking status: Former Current packs/day: 0.00 Average packs/day: 1 pack/day for 32.0 years (32.0 ttl pk-yrs) Types: Cigarettes Start date: 03/14/1982 Quit date: 03/14/2014 Years since quittin.3 Smokeless tobacco: Never Vaping Use Vaping status: Never Used Substance Use Topics Alcohol use: Yes Comment: rarely Drug use: Yes Comment: CBD gummies and "cigarette" couple times a week EXAM: BP 132/80 (BP Site: Left Arm, BP Position: Sitting, BP Cuff Size: Regular Adult) Pulse 72 Resp 18 Wt 85.6 kg (188 lb 11.4 oz) LMP 04/17/2016 (Exact Date) BMI 30.00 kg/m General Appearance: Well appearing, alert, in no acute distress, well-hydrated, well nourished. andOverweight. Ears: External ears normal, canals clear. Lungs: Lungs clear to auscultation. No wheezing, rhonchi, rales.. Heart: RRR without murmur, gallop, or rubs. No ectopy. Health Maintenance List Pneumococcal Vaccine: 50+(1 of 2 - PCV) Never done Shingrix Vaccine(1 of 2) Never done BP Controlled (<130/80) due on 11/28/2019 RSV Vaccine(1 - Risk 60-74 years 1-dose series) Never done Dilated Retinal Exam due on 07/13/2022 Lung Cancer Screening due on 11/08/2023 Diabetic Foot Exam due on 12/22/2023 Influenza Vaccine(1) due on 03/09/2024 Covid-19 Vaccine(3 - season) due on 03/09/2024 HbA1C due on 06/24/2024 Urine Albumin:Creatinine Ratio due on 06/20/2024 Colorectal Cancer Screening due on 08/02/2024 Mammogram Screening due on 11/25/2024 LDL Cholesterol due on 12/23/2024 Depression Screening due on 12/28/2024 Anxiety Screening due on 12/28/2024 Annual PCP Team Chronic Disease Visit due on 04/10/2025 DTaP,Tdap,Td Vaccine(2 - Td or Tdap) due on 03/14/2027 Hepatitis C Screening Completed HIV Screening Completed Cervical Cancer Screening Discontinued Data reviewed Labs in process ASSESSMENT/PLAN: 1. Controlled type 2 diabetes mellitus without complication, without long-term current use of insulin (HCC) - ICD9: 250.00, ICD10: E11.9 (primary diagnosis) - Await lab results, will call with results - Continue current medications - Counseled on healthy diet and regular exercise - Rx for Hugh 3 sent in. - [employer] HUGH 3 SENSOR DEVICE - FREESTYLE HUGH 3 READER - COMPREHENSIVE METABOLIC PANEL - LIPID PANEL BASIC - HEMOGLOBIN A1C - ALBUMIN/CREATININE RATIO, URINE 2. Neuropathy - ICD9: 355.9, ICD10: G62.9 - Stable 3. HYPERTENSION - ICD9: 401.1, ICD10: I10 - Controlled - Await lab results - Continue current medications - Pt asking about Nephrology consult would prefer to stay locally. Will update office if she would like to pursue this. - Recommend home blood pressure monitoring, to bring results to next visit - Encouraged sodium restriction, DASH or Mediterranean diet - Recommend regular aerobic exercise - COMPREHENSIVE METABOLIC PANEL - LIPID PANEL BASIC - COMPLETE BLOOD COUNT AND DIFFERENTIAL 4. Mixed hyperlipidemia - ICD9: 272.2, ICD10: E78.2 - Await lab results, will call with results - Counseled on healthy diet and regular exercise - COMPREHENSIVE METABOLIC PANEL - LIPID PANEL BASIC 5. Fibromyalgia - ICD9: 729.1, ICD10: M79.7 - Stable, continue current medication 6. Gastroesophageal reflux disease, unspecified whether esophagitis present - ICD9: 530.81, ICD10: K21.9 - Continue current medication regimen. 7. Temporal arteritis (HCC) - ICD9: 446.5, ICD10: M31.6 - Await results - Stable - SEDIMENTATION RATE, WESTERGREN - C-REACTIVE PROTEIN 8. Memory change - ICD9: 780.93, ICD10: R41.3 - No change at this time 9. Osteopenia, unspecified location - ICD9: 733.90, ICD10: M85.80 - Reviewed the need for Calcium and Vitamin D supplements and weight bearing exercise as tolerated Will call with lab results. 6 mo f/u with labs. I agree with the Chief Complaint, ROS, and Past Histories independently gathered by the clinical technical support engineer and the remaining scribed note accurately describes my personal service to the patient. Medical Decision Making: Problems: Moderate: 2+ stable chronic illnesses Data: Unique test(s) ordered: 3+ Risk: Moderate: Drug management Medical Decision Making Level: 4 - Moderate Gabbie Grady MD The documentation for this note was completed by Cande Zacarias MA acting as scribe for Gabbie Grady MD. July 03, 2024 1:14 PM. Cande Zacarias MA documented in [facility]Tr[facility] NoteHNO ID: [id number] Author: GABBIE GRADY MD Service: ? Author Type: Physician Type: Progress Notes Filed: 07/03/2024 16:57 Note Text: Chief Complaint Patient presents with: F/U 6 Month HPI Crystal Thakur is a 64 year old female who presents here today for 6 month follow up. Here today for her routine follow up. Labs currently in process. GI/Uro - Notes hx of gallstones and fatty liver disease. Does have occasional bouts of gassiness and nausea. Reports BM's overall normal. Is on 3 year Colonoscopy screening through Dr. Tamez due to hx of tubular adenoma. Is scheduled to have this next month. Hx of kidney stones, taking Ursodiol 300 mg 1 pill BID. GERD - Reflux sx controlled on Prilosec 20 mg daily. Lipid: No cholesterol meds as she's not tolerated in the past, but is taking ASA 81 mg daily. Tries to watch diet by eating a mediterranean diet and eating low carb. Tries to avoid foods that can cause inflammation. Tries to stay active during the summer months, less active in the colder months. Has 14 chickens she cares for. DM: Checking BS daily with her Hugh 4-6 x per day or more. Reports having issues with Hugh 2 system and Pharmacy said the 2 system is not commonly used and recommended switching to the 3. FBS range between 80-100, notes sugars have been a little higher lately, this am was 120. No lows lately, but has had some over the past 6 months, generally occurring when she's sleeping. Does have neuropathy in feet. Currently on Metformin 500 mg 1-2 pills daily. HTN: Checks her BP at home, states it's been better (still higher) since being put on Clonidine. Generally BP around 130-140/70-80. Taking Norvasc 10 mg daily, HCTZ 25 mg daily, Clonidine 0.1 mg 1 tab po bid daily, Nadolol 40 mg 1 pill BID and Lisinopril 20 mg 2 pills once daily. No chest pains, dizziness, or SOB. Discussed Nephrology evaluation due to history of FMD of renal arteries and HTN; she will check locally for provider. Memory: Has improved, will be forgetful at times. Rheum: Hx of GCA. Previously took Prednisone; has been off for 15 months and doing well.Takes Nortriptyline 25 mg daily. Fibro: Takes Ibuprofen 800 mg 1 tab po every 6 hours and Robaxin 500 mg 2 tabs po TID Osteopenia - Was advised to take Calcium + D3 due to osteopenia. Is struggling with taking large pills as they get stuck and they will come up or spit them out. Occasionally they stay stuck and she will need to continue swallowing or eat something. States this recently started. Wondering if there is something else she can take or other suggestions. Ortho - Had L shoulder cuff repair surgery and bicep tendonesis done mid January by Dr. Vivar. Overall reports occasional pain with sleeping on it. Did complete PT and is now doing home exercises. Has pretty good ROM. Now wearing a wrist splint on her right wrist after doing some yard work. Was not able to get in to see Dr. Soriano so she saw [facility] who recommended wearing wrist splint for 4 weeks. No noticeable improvement at this time. Does have some issues with OTC Vitamin B Complex medication. Reports it makes her nauseas. Has tried switching and taking it at night but not improving. Has changed brands with no improvement. Reports ongoing issues with her sinuses and feeling congested that come on. Has been seen in the past and was told it was viral. Feels her ears are plugged and may need to be cleaned out. Has seen [facility] for this in the past. Uses Claritin 10 mg prn. HM - Declines Flu, Covid, RSV, Shingles and Pneumonia vaccine. Is due for DM Eye exam this month, will call to schedule this. Mamm screening in November and January 2024. Past medical history, appointments, medications, allergies reviewed. 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; follows with [facility] clinic Fibromyalgia Giant cell arteritis (HCC) 2020 Heart palpitations nadalol helps Incomplete uterovaginal prolapse Left shoulder pain Obesity, unspecified Osteoarthrosis, unspecified whether generalized or localized, lower leg bilateral knees > hips Other and unspecified hyperlipidemia 1998 has been on meds in past, had tolerated Lipitor but afraid of statins Phlebitis and thrombophlebitis of superficial vessels of lower extremities 3rd child 1985, right leg Renal stones Varicose veins of other sites 2 (more content not included)...[facility]12-24-2024 Telephone encounter Note* Telephone Encounter - Gabbie Grady MD - 07/01/2024 11:23 AM EST OK to refill as ordered Gabbie Grady MD [facility]12-24-2024 Miscellaneous Notes* Telephone Encounter - Gabbie Grady MD - 07/01/2024 11:23 AM EST OK to refill as ordered Gabbie Grady MD * Telephone Encounter - Edith Chauhan MA - 07/01/2024 10:14 AM EST FARAZ: 04/10/24 with AT NOV: 07/03/24-CPE with PCP Last refill: Amlodipine 08/29/23 With 30 and 11 refills -patient fills as 90 days last fill 04/02/24-will be out tomorrow remaining refills Tessalon Perle 10/04/22 30 capsules with 1 refills Edith Chauhan MA documented in [facility]Tr[facility]12[facility] Telephone encounter Note * Telephone Encounter - Edith Chauhan MA - 07/01/2024 10:14 AM EST FARAZ: 04/10/24 with AT NOV: 07/03/24-CPE with PCP Last refill: Amlodipine 08/29/23 With 30 and 11 refills -patient fills as 90 days last fill 04/02/24-will be out tomorrow remaining refills Charline Mckeon 10/04/22 30 capsules with 1 refills Edith Chahuan MA [facility]11-18-2024 Telephone encounter Note* Telephone Encounter - Jaskaran Quiroz APRN.CNP - 05/26/2024 9:38 AM EST The following approved medication requests have been transmitted electronically. Requested Prescriptions Pending Prescriptions Disp Refills nortriptyline (PAMELOR) 25 mg capsule 30 capsule 11 Sig: Take 1 capsule by mouth daily at bedtime. Jaskaran Quiroz APRN.CNP [facility]11-18-2024 Miscellaneous Notes* Telephone Encounter - Jaskaran Quiroz APRN.CNP - 05/26/2024 9:38 AM EST The following approved medication requests have been transmitted electronically. Requested Prescriptions Pending Prescriptions Disp Refills nortriptyline (PAMELOR) 25 mg capsule 30 capsule 11 Sig: Take 1 capsule by mouth daily at bedtime. Jaskaran Quiroz APRN.CNP * Telephone Encounter - Mari Pederson LPN - 05/26/2024 9:21 AM EST Prescription Refill Information The patient has been identified by name and date of : Yes Caregiver verified no other encounters exist for this prescription request: Yes Caregiver confirmed with patient/requestor that no other refills are due, in the near future, with this provider at this time: Yes The last office visit in the department: 04/10/24 Does the patient have a future office visit with this provider/department: Yes 07/03/24 Requested Prescriptions Pending Prescriptions Disp Refills nortriptyline (PAMELOR) 25 mg capsule 30 capsule 11 Sig: Take 1 capsule by mouth daily at bedtime. Mari Pederson LPN May 26, 2024 9:22 AM documented in this encounterTr[facility]11-18-2024 Telephone encounter Note * Telephone Encounter - Jaskaran Quiroz APRN.CNP - 05/26/2024 9:37 AM EST The following approved medication requests have been transmitted electronically. Requested Prescriptions Pending Prescriptions Disp Refills albuterol HFA (PROVENTIL HFA, VENTOLIN HFA) 90 mcg/actuation inhaler 18 g 5 Sig: Inhale 2 Puffs as instructed every 4 hours as needed. Jaskaran Quiroz APRN.CNP [facility]11-18-2024 Miscellaneous Notes* Telephone Encounter - Jaskaran Quiroz APRN.CNP - 05/26/2024 9:37 AM EST The following approved medication requests have been transmitted electronically. Requested Prescriptions Pending Prescriptions Disp Refills albuterol HFA (PROVENTIL HFA, VENTOLIN HFA) 90 mcg/actuation inhaler 18 g 5 Sig: Inhale 2 Puffs as instructed every 4 hours as needed. Jaskaran Quiroz APRN.CNP * Telephone Encounter - Mari Pederson LPN - 05/26/2024 9:22 AM EST Prescription Refill Information The patient has been identified by name and date of : Yes Caregiver verified no other encounters exist for this prescription request: Yes Caregiver confirmed with patient/requestor that no other refills are due, in the near future, with this provider at this time: Yes The last office visit in the department: 04/10/24 Does the patient have a future office visit with this provider/department: Yes 07/03/24 Requested Prescriptions Pending Prescriptions Disp Refills albuterol HFA (PROVENTIL HFA, VENTOLIN HFA) 90 mcg/actuation inhaler 18 g 5 Sig: Inhale 2 Puffs as instructed every 4 hours as needed. Mari Pederson LPN May 26, 2024 9:23 AM documented in this encounterTr[facility]11-18-2024 Telephone encounter Note * Telephone Encounter - Mari Pederson LPN - 05/26/2024 9:22 AM EST Prescription Refill Information The patient has been identified by name and date of : Yes Caregiver verified no other encounters exist for this prescription request: Yes Caregiver confirmed with patient/requestor that no other refills are due, in the near future, with this provider at this time: Yes The last office visit in the department: 04/10/24 Does the patient have a future office visit with this provider/department: Yes 07/03/24 Requested Prescriptions Pending Prescriptions Disp Refills albuterol HFA (PROVENTIL HFA, VENTOLIN HFA) 90 mcg/actuation inhaler 18 g 5 Sig: Inhale 2 Puffs as instructed every 4 hours as needed. Mari Pederson LPN May 26, 2024 9:23 AM [facility]11-18-2024 Telephone encounter Note* Telephone Encounter - Mari Pederson LPN - 05/26/2024 9:21 AM EST Prescription Refill Information The patient has been identified by name and date of : Yes Caregiver verified no other encounters exist for this prescription request: Yes Caregiver confirmed with patient/requestor that no other refills are due, in the near future, with this provider at this time: Yes The last office visit in the department: 04/10/24 Does the patient have a future office visit with this provider/department: Yes 07/03/24 Requested Prescriptions Pending Prescriptions Disp Refills nortriptyline (PAMELOR) 25 mg capsule 30 capsule 11 Sig: Take 1 capsule by mouth daily at bedtime. Mari Pederson LPN May 26, 2024 9:22 AM [facility]11-18-2024 Telephone encounter Note* Telephone Encounter - Jaskaran Quiroz APRN.CNP - 05/26/2024 7:18 AM EST The following approved medication requests have been transmitted electronically. Requested Prescriptions Pending Prescriptions Disp Refills nystatin (MYCOSTATIN) powder 60 g 5 Sig: Apply 1 application to affected area as needed. Jaskaran Quiroz APRN.CNP [facility]11-18-2024 Miscellaneous Notes* Telephone Encounter - Jaskaran Quiroz APRN.CNP - 05/26/2024 7:18 AM EST The following approved medication requests have been transmitted electronically. Requested Prescriptions Pending Prescriptions Disp Refills nystatin (MYCOSTATIN) powder 60 g 5 Sig: Apply 1 application to affected area as needed. Jaskaran Quiroz APRN.CNP * Telephone Encounter - Fozia Mathew LPN - 05/26/2024 7:11 AM EST Prescription Refill Information The patient has been identified by name and date of : Yes Caregiver verified no other encounters exist for this prescription request: Yes Caregiver confirmed with patient/requestor that no other refills are due, in the near future, with this provider at this time: Yes The last office visit in the department: 04/10/2024 Does the patient have a future office visit with this provider/department: Yes Requested Prescriptions Pending Prescriptions Disp Refills nystatin (MYCOSTATIN) powder 60 g 5 Sig: Apply 1 application to affected area as needed. Fozia Mathew LPN May 26, 2024 7:12 AM documented in this encounterTr[facility]11-[facility]24 Telephone encounter Note * Telephone Encounter - Fozia Mathew LPN - 05/26/2024 7:11 AM EST Prescription Refill Information The patient has been identified by name and date of : Yes Caregiver verified no other encounters exist for this prescription request: Yes Caregiver confirmed with patient/requestor that no other refills are due, in the near future, with this provider at this time: Yes The last office visit in the department: 04/10/2024 Does the patient have a future office visit with this provider/department: Yes Requested Prescriptions Pending Prescriptions Disp Refills nystatin (MYCOSTATIN) powder 60 g 5 Sig: Apply 1 application to affected area as needed. Fozia Mathew LPN May 26, 2024 7:12 AM [facility]10-31-2024 History of Present illness Narrative* Kian Aceves PT - 05/08/2024 3:17 PM EDT Images from the original note were not included. Episode Visit Count: 15 Therapist That Will Accept/Oversee The Plan Of Care: Kian Aceves PT Start of Care Date: 01/28/24 Onset Date: 12/29/23 Plan of Care Certification Date: 04/07/24 Next Certification Due Date: 05/12/24 Patient Identified by Name and Date of : Yes [facility] PHYSICAL THERAPY DISCONTINUANCE OF CARE PLAN OF CARE UPDATE: Assessment: Crystal Thakur is discontinued from Physical Therapy services due to goal achievementand maximal benefit.. Patient was seen for 15 visits from Start of Care Date: 01/28/24 to 05/08/2024 and treatment included: Therapeutic exercise, Manual therapy, Therapeutic activities, Self-longterm management, and Patient/Family/Caregiver Education. Goals updated 05/08/2024 Goals for Episode of Care: created on 01/28/24 through 05/19/24 [place] in home exercise program. - MET Patient will decrease pain rating by 2 points to meet minimal clinical important difference for numeric pain rating scale. - MET Perform closing a car door without pain. - met Increase ROM of LUE to equal that of the RUE - Met Increased strength of LUE to 5/5 for return to PLOF - Met Patient Goals: Return to PLOF SUBJECTIVE: The shoulder feels better. Ready to be discharged. The shoulder can get sore if she sleeps on it. Patient Goals: Return to PLOF Functional Limitations: nothing Prior Level of Function: Independent without limitations Intake Information: Prescription present Previous Treatment: Surgery Pain: Pain Pain Level: 0 Pain Location: Shoulder - Left PROMIS Scales 05/08/2024 04/04/2024 02/28/2024 Higher is Better Phys Func - Score 41 (mild dysfunction) 40 (mild dysfunction) 36 (moderate dysfunction) Phys Func - Percentile 18 16 8 Self-Eff Symptom - Score 48 (Average) 48 (Average) 41 (Average) Self-Eff Symptom - Percentile 42 42 18 T-scores: mean of general population = 50. 5 points is clinically meaningfully difference Percentiles provide an indication of how the patient's score ranks in relation to the general population. Higher percentile rankings indicate better function/quality of life. 50th percentile is the average of the general population and indicates half of respondents had a worse score. OBJECTIVE MEASURES WITH LEVEL OF FUNCTION: UE AROM L Shoulder Flex: 150 Degrees L Shoulder ABduction: 153 Degrees L Shoulder Internal Rotation (Functional): Thumb to T10 L Shoulder External Rotation: 42 Degrees UE and Cervical Strength L Shoulder Flexion: 4/5 L Shoulder Abduction (C5): 4/5 L Shoulder Internal Rotation: 4+/5 L Shoulder External Rotation: 4+/5 TREATMENT: Therapeutic Exercise: 1: All objective measures taken this session 2: Shoulder abd BTB x 6 3: Discussed HEP finalized to continue for the next 2 months 3 x /week 4: Seated shoulder pulleys scaption x 4 min Skilled Intervention: Patient was educated in proper exercise technique and purpose for exercises. Provided written instruction for home exercise program to facilitate proper performance and compliance. Correct performance of therapeutic exercises was facilitated with verbal and visual cuing. Billing Therapeutic Exercise Treatment Minutes: 38 Skilled Treatment Time Minutes (timed and untimed codes): 38 Total Session Time (minutes): 38 Session Start Time : 1501 Session Stop Time : 153 Kian Aceves PT [facility] encounter Note * Telephone Encounter - Xochilt Fernandez APRN.[facility] - 04/28/2024 2:07 PM EDT The following approved medication requests have been transmitted electronically. Requested Prescriptions Signed Prescriptions Disp Refills cloNIDine HCl (CATAPRES) 0.1 mg tablet 60 tablet 5 Sig: Take 1 tablet by mouth two times a day. Xochilt Fernandez APRN.CNP [facility] Miscellaneous Notes* Telephone Encounter - Xochilt Fernandez APRN.CNP - 04/28/2024 2:07 PM EDT The following approved medication requests have been transmitted electronically. Requested Prescriptions Signed Prescriptions Disp Refills cloNIDine HCl (CATAPRES) 0.1 mg tablet 60 tablet 5 Sig: Take 1 tablet by mouth two times a day. Xochilt Fernandez APRN.CNP * Telephone Encounter - Cande Zacarias MA - 04/11/2024 1:45 PM EDT See update from pt. Cande Zacarias MA [facility] Hospital Discharge instructions Patient Education 04/26/2024 13:00:47 Controlling High Blood Pressure Controlling High Blood Pressure High blood pressure (hypertension) is often called the silent killer. This is because many people who have it, don t know it. High blood pressure can raise your risk of heart attack, stroke, heart disease, and heart failure. Controlling your blood pressure can decrease your risk of these problems. Know your blood pressure and remember to check it regularly. Doing so can save your life. Blood pressure measurements are given as 2 numbers. Systolic blood pressure is the upper number. This is the pressure when the heart contracts. Diastolic blood pressure is the lower number. This is the pressure when the heart relaxes between beats. Blood pressure is categorized as normal, elevated, or stage 1 or stage 2 high blood pressure: Normal blood pressure is systolic of less than 120 and diastolic of less than 80 (120/80) Elevated blood pressure is systolic of 120 to 129 and diastolic less than 80 Stage 1 high blood pressure is systolic is 130 to 139 or diastolic between 80 to 89 Stage 2 high blood pressure is when systolic is 140 or higher or the diastolic is 90 or higher Here are some things you can do to help control your blood pressure. Choose heart-healthy foods Select low-salt, low-fat foods. Limit sodium intake to 2,400 mg per day or the amount suggested by your healthcare provider. Limit canned, dried, cured, packaged, and fast foods. These can contain a lot of salt. Eat 8 to 10 servings of fruits and vegetables every day. Choose lean meats, fish, or chicken. Eat whole-grain pasta, brown rice, and beans. Eat 2 to 3 servings of low-fat or fat-free dairy products. Ask your doctor about the DASH eating plan. This plan helps reduce blood pressure. When you go to a restaurant, ask that your meal be prepared with no added salt. Maintain a healthy weight Ask your healthcare provider how many calories to eat a day. Then stick to that number. Ask your healthcare provider what weight range is healthiest for you. If you are overweight, a weight loss of only 3% to 5% of your body weight can help lower blood pressure. Generally, a good weightloss goal is to lose 10% of your body weight in a year. Limit snacks and sweets. Get regular exercise. Get up and get active Choose activities you enjoy. Find ones you can do with friends or family. This includes bicycling, dancing, walking, and jogging. Park farther away from building entrances. Use stairs instead of the elevator. When you can, walk or bike instead of driving. [place] leaves, garden, or do household repairs. Be active at a moderate to vigorous level of physical activity for at least 40 minutes for a minimum of 3 to 4 days a week. Manage stress Make time to relax and enjoy life. Find time to laugh. Communicate your concerns with your loved ones and your healthcare provider. Visit with family and friends, and keep up with hobbies. Limit alcohol and quit smoking Men should have no more than 2 drinks per day. Women should have no more than 1 drink per day. Talk with your healthcare provider about quitting smoking. Smoking significantly increases your risk for heart disease and stroke. Ask your healthcare provider about community smoking cessation programs and other options. Medicines If lifestyle changes aren t enough, your healthcare provider may prescribe high blood pressure medicine. Take all medicines as prescribed. If you have any questions about your medicines, ask your healthcare provider before stopping or changing them. [id number] [employer]. [address] [place] [address]. All rights reserved. This information is not intended as a substitute for professional medical care. Always follow [facility] professional's instructions. 04/26/2024 12:59:45 Hypertension, Established Established High Blood Pressure High blood pressure (hypertension) is a chronic disease. Often, healthcare providers don t know what causes it. But it can be caused by certain health conditions and medicines. If you have high blood pressure, you may not have any symptoms. If you do have symptoms, they may include headache, dizziness, changes in your vision, chest pain, and shortness of breath. But even without symptoms, high blood pressure that s not treated raises your risk for heart attack, heart failure, and stroke. High blood pressure is a serious health risk and shouldn t be ignored. Blood pressure measurements are given as 2 numbers. Systolic blood pressure is the upper number. This is the pressure when the heart contracts. Diastolic blood pressure is the lower number. This is the pressure when the heart relaxes between beats. You will see your blood pressure readings written together. For example, a person with a systolic pressure of 118 and a diastolic pressure of 78 will have 118/78 written in the medical record. Blood pressure is categorized as normal, elevated, or stage 1 or stage 2 high blood pressure: Normal blood pressure is systolic of less than 120 and diastolic of less than 80 (120/80) Elevated blood pressure is systolic of 120 to 129 and diastolic less than 80 Stage 1 high blood pressure is systolic is 130 to 139 or diastolic between 80 to 89 Stage 2 high blood pressure is when systolic is 140 or higher or the diastolic is 90 or higher Home care If you have high blood pressure, follow these home care guidelines to help lower your blood pressure. If you are taking medicines for high blood pressure, these methods may reduce or end your need for medicines in the future. Start a weight-loss program if you are overweight. Cut back on how much salt you get in your diet. Here s how to do this: oDon t eat foods that have a lot of salt. These include olives, pickles, smoked meats, and salted potato chips. oDon t add salt to your food at the table. oUse only small amounts of salt when cooking. Start an exercise program. Talk with your healthcare provider about the type of exercise program that would be best for you. It doesn't have to be hard. Even brisk walking for 20 minutes 3 times a week is a good form of exercise. Don t take medicines that stimulate the heart. This includes many [id number] cold and sinus decongestant pills and sprays, as well as diet pills. Check the warnings about high blood pressure onthe label. Before buying any mfxe-eda-ehnylmj medicines or supplements, always ask the pharmacist about the product's potential interaction with your high blood pressure and your high blood pressure medicines. Stimulants such as amphetamine or cocaine could be deadly for someone with high blood pressure. Never take these. Limit how much caffeine you get in your diet. Switch to caffeine-free products. Stop smoking. If you are a long-time smoker, this can be hard. Talk to your healthcare provider about medicines and nicotine replacement options to help you. Also, enroll in a stop-smoking program tomake it more likely that you will quit for good. Learn how to handle stress. This is an important part of any program to lower blood pressure. Learnabout relaxation methods like meditation, yoga, or biofeedback. If your provider prescribed medicines, take them exactly as directed. Missing doses may cause your blood pressure get out of control. If you miss a dose or doses, check with your healthcare provider or pharmacist about what to do. Consider buying an automatic blood pressure machine to check your blood pressure at home. Ask your provider for a recommendation. You can get one of these at most pharmacies. The [place] [employer] recommends the following guidelines for home blood pressure monitoring: Don't smoke or drink coffee for 30 minutes before taking your blood pressure. Go to the bathroom before the test. Relax for 5 minutes before taking the measurement. Sit with your back supported (don't sit on a couch or soft chair); keep your feet on the floor uncrossed. Place your arm on a solid flat surface (like a table) with the upper part of the arm at heartlevel. Place the middle of the cuff directly above the bend of the elbow. Check the monitor's instruction manual for an illustration. Take multiple readings. When you measure, take 2 to 3 readings one minute apart and record all of the results. Take your blood pressure at the same time every day, or as your healthcare provider recommends. Record the date, time, and blood pressure reading. Take the record with you to your next medical appointment. If your blood pressure monitor has a built-in memory, simply take the monitor with you to your next appointment. Call your provider if you have several high readings. Don't be frightened by a single high blood pressure reading, but if you get several high readings, check in with your healthcare provider. Note: When blood pressure reaches a systolic (top number) of 180 or higher OR diastolic (bottom number) of 110 or higher, seek emergency medical treatment. Follow-up care You will need to see your healthcare provider regularly. This is to check your blood pressure and to make changes to your medicines. Make a follow-up appointment as directed. Bring the record of yourhome blood pressure readings to the appointment. When to seek medical advice Call your healthcare provider right away if any of these occur: Blood pressure reaches a systolic (upper number) of 180 or higher OR a diastolic (bottom number) of110 or higher Chest pain or shortness of breath Severe headache Throbbing or rushing sound in the ears Nosebleed Sudden severe pain in your belly (abdomen) Extreme drowsiness, confusion, or fainting Dizziness or spinning sensation (vertigo) Weakness of an arm or leg or one side of the face You have problems speaking or seeing [id number] [employer]. [address] [place] [address]. All rights reserved. This information is not intended as a substitute for professional medical care. Always follow yourhealthcare professional's instructions. Follow Up Care 04/26/2024 10:32:39 With:GABBIE GRADY MD Address: [address] [place] [id number] When:2-4 days Comments:Return to ED if symptoms worsen [facility] 10-19-2024 Emergency department Discharge summary Discharge Instructions Thank you for allowing [facility] to assist you with your healthcare needs. The following is importantdischarge information regarding your hospital visit. Diagnosis from Today's Visit Anxiety Hypertension What to Do Next Instructions from Your Care Team No qualifying data available. Post Acute Orders No qualifying data available. You Need to Schedule the Following Appointments Follow Up with GABBIE GRADY MD When:Within 2-4 days Where:[address] [place] [id number]- Additional Information: Return to ED if symptoms worsen Allergies Aspartame Atorvastatin, Atorvastatin Cats Cymbalta Latex MSG Niacinamide Splenda Huan's wort Zithromax atorvastatin doxycycline erythromycin niacin Medications Please ask your primary doctor or pharmacist before taking any other medication not listed, including over the counter drugs, herbal medications, vitamins and or supplements as they may interact withyour home medications. What How Much When Why Instructions Last Dose Changed LORazepam (Ativan 0.5 mg oral tablet) 1 tab(s) by mouth Three (3) times a day as needed for for anxiety Hypertension Duration: 3 Days Changed LORazepam (Ativan 0.5 mg oral tablet) 1 tab(s) by mouth Three (3) times a day as needed for as needed for anxiety Hypertension Duration: 3 Days Printed Prescription Unchanged amLODIPine (amLODIPine 5 mg oral tablet) Unchanged aspirin (Aspirin Enteric Coated 81 mg oral delayed release tablet) Unchanged hydroCHLOROthiazide (hydroCHLOROthiazide 50 mg oral tablet) Unchanged metFORMIN (metFORMIN 500 mg oral tablet, extended release) Unchanged Misc Medication ([facility] [facility] Q-10 100 MG SOFTGEL) Unchanged nadolol (nadolol 80 mg oral tablet) Unchanged nortriptyline (nortriptyline 10 mg oral capsule) Please take this list to your next doctor s visit. Bring all medications you take, including over the counter medications, herbals and other supplements with you to your doctor s visit. Patients and families are reminded to discard old lists and to update any records with all medication providers or retail pharmacies. Medication Leaflets lorazepam (oral) (luisana A ze jimmie) Ativan, Lorazepam Intensol, Loreev XR What is the most important information I should know about lorazepam? Lorazepam can slow or stop your breathing, especially if you have recently used an opioid medication or alcohol. MISUSE OF THIS MEDICINE CAN CAUSE ADDICTION, OVERDOSE, OR . Keep this medicine where others cannot get to it. You may have withdrawal symptoms if you stop using lorazepam suddenly. Ask your doctor before stopping the medicine. What is lorazepam? Lorazepam is used in adults and children at least 12 years old to treat anxiety disorders. Extended-release lorazepam is used in adults to treat anxiety disorders. Lorazepam may also be used for purposes not listed in this medication guide. What should I discuss with my healthcare provider before taking lorazepam? You should not use lorazepam if you have: narrow-angle glaucoma; or a history of allergic reaction to any benzodiazepine (lorazepam, alprazolam, diazepam, Valium, Xanax, Versed, Klonopin, and others). Tell your doctor if you have ever had: asthma, chronic obstructive pulmonary disease (COPD), sleep apnea, or other breathing disorder; drug or alcohol addiction; depression, mental illness or psychosis, mood changes, or suicidal thoughts or actions; seizures; an allergy to aspirin or yellow food dye; or kidney or liver disease. Tell your doctor if you are or plan to become . If you use lorazepam during , your baby could be born with life-threatening withdrawal symptoms, and may need medical treatment for several weeks. If you are , your name may be listed on a registry to track the effects of lorazepam on the baby. You should not breastfeed. If you do breastfeed, tell your doctor if you notice drowsiness, feeding problems, or slow weight gain in the nursing baby. How should I take lorazepam? Follow the directions on your prescription label and read all medication guides or instruction sheets. Never use lorazepam in larger amounts, or for longer than prescribed. Tell your doctor if you feel an increased urge to use more of this medicine. Never share this medicine with another person, especially someone with a history of drug addiction.MISUSE CAN CAUSE ADDICTION, OVERDOSE, OR . Keep the medicine where others cannot get to it. Selling or giving away this medicine is against the law. Measure the oral concentrate (liquid) with the supplied measuring device (not a kitchen spoon). Mixthe liquid with water, juices, soda or soda-like beverages, or with semi-solid foods such as applesauce or puddings. Swallow this mixture right away. Swallow the extended-release capsule whole and do not crush, chew, break, or open it. If you cannot swallow a capsule whole, open it and mix the medicine with applesauce. Swallow the mixture right away without chewing. Do not stop using lorazepam without asking your doctor. You may have life- threatening withdrawal symptoms if you stop using the medicine suddenly after long-term use. Store tightly closed at room temperature, away from moisture and heat. Store the liquid form of lorazepam in the refrigerator. Throw away any liquid not used within 90 days. Keep your medicine in a place where no one can use it improperly. What happens if I miss a dose? Take the medicine as soon as you can, but skip the missed dose if it is almost time for your next dose. Do not take two doses at one time. What happens if I overdose? Seek emergency medical attention or call the Poison Help line at . An overdose of lorazepam can be fatal if you also drink alcohol or use other drugs that cause drowsiness or slow breathing. Overdose symptoms may include severe drowsiness, confusion, slurred speech, feeling restless, muscle weakness, loss of balance or coordination, feeling light-headed, slow heartbeats, weak or shallow breathing, or coma. What should I avoid while taking lorazepam? Do not drink alcohol. Dangerous side effects or could occur. Avoid driving or hazardous activity until you know how this medicine will affect you. Dizziness or drowsiness can cause falls, accidents, or severe injuries. What are the possible side effects of lorazepam? Get emergency medical help if you have signs of an allergic reaction: hives; difficulty breathing; swelling of your face, lips, tongue, or throat. Lorazepam can slow or stop your breathing, especially if you have recently used an opioid medication or alcohol. A person caring for you should seek emergency medical attention if you have slow breathing with long pauses, blue colored lips, or if you are hard to wake up. Call your doctor at once if you have: severe drowsiness; unusual changes in mood or behavior, being agitated or talkative; sudden restless feeling or excitement; seizures, depression, thinking problems, thoughts of suicide or hurting yourself; confusion, aggression, hallucinations; sleep problems (insomnia); vision changes; or dark urine, or jaundice (yellowing of the skin or eyes). Drowsiness or dizziness may last longer in older adults. Use caution to avoid falling or accidentalinjury. Common side effects may include: dizziness, sedation, drowsiness; weakness; or feeling unsteady. You will need frequent blood tests to check your blood counts and liver function. After you stop using lorazepam, seek medical help right away if you have symptoms such as: unusual muscle movements, being more active or talkative, sudden and severe changes in mood or behavior, confusion, hallucinations, seizures, suicidal thoughts or actions. Some withdrawal symptoms may last up to 12 months or longer after stopping this medicine suddenly. Tell your doctor if you have ongoing anxiety, depression, problems with memory or thinking, trouble sleeping, ringing in your ears, a burning or prickly feeling, or a crawling sensation under your skin. This is not a complete list of side effects and others may occur. Call your doctor for medical advice about side effects. You may report side effects to FDA at 5-498-ZHM-6037. What other drugs will affect lorazepam? Taking lorazepam with other drugs that slow your breathing can cause dangerous side effects or . Ask your doctor before using opioid medication, a sleeping pill, a muscle relaxer, or medicine for anxiety or seizures. Tell your doctor about all your other medicines, especially: valproate, probenecid, aminophylline, or theophylline; medicine to treat mental illness; or medicine that contains an antihistamine (such as sleep medicine, cold or allergy medicine). This list is not complete and many other drugs may affect lorazepam. This includes prescription sddckie-cfg-yfgnefs medicines, vitamins, and herbal products. Not all possible drug interactions are listed here. Where can I get more information? Your doctor or pharmacist can provide more information about lorazepam. Remember, keep this and all other medicines out of the reach of children, never share your medicines with others, and use this medication only for the indication prescribed. Every effort has been made to ensure that the information provided by [employer]') is accurate, up-to-date, and complete, but no guarantee is made to that effect. Drug information contained herein may be time sensitive. [employer] information has been compiled for use by healthcare practitioners and consumers in the [place] and therefore [employer] does not warrant that uses outside of the [place] are appropriate, unless specifically indicated otherwise. [employer]'s drug information does not endorse drugs, diagnose patients or recommend therapy. [employer] drug information isan informational resource designed to assist licensed healthcare practitioners in caring for their p atients and/or to serve consumers viewing this service as a supplement to, and not a substitute for, the expertise, skill, knowledge and judgment of healthcare practitioners. The absence of a warningfor a given drug or drug combination in no way should be construed to indicate that the drug or drug combination is safe, effective or appropriate for any given patient. [facility] does not assume any responsibility for any aspect of healthcare administered with the aid of information [facility] provides. The information contained herein is not intended to cover all possible uses, directions, precautions, warnings, drug interactions, allergic reactions, or adverse effects. If you have questions about the drugs you are taking, check with your doctor, nurse or pharmacist. Copyright 7996-9277 [facility]. Version: 10.. Revision Date: 11/27/2022. Education Materials Controlling High Blood Pressure High blood pressure (hypertension) is often called the silent killer. This is because many people who have it, don t know it. High blood pressure can raise your risk of heart attack, stroke, heart disease, and heart failure. Controlling your blood pressure can decrease your risk of these problems. Know your blood pressure and remember to check it regularly. Doing so can save your life. Blood pressure measurements are given as 2 numbers. Systolic blood pressure is the upper number. This is the pressure when the heart contracts. Diastolic blood pressure is the lower number. This is the pressure when the heart relaxes between beats. Blood pressure is categorized as normal, elevated, or stage 1 or stage 2 high blood pressure: Normal blood pressure is systolic of less than 120 and diastolic of less than 80 (120/80) Elevated blood pressure is systolic of 120 to 129 and diastolic less than 80 Stage 1 high blood pressure is systolic is 130 to 139 or diastolic between 80 to 89 Stage 2 high blood pressure is when systolic is 140 or higher or the diastolic is 90 or higher Here are some things you can do to help control your blood pressure. Choose heart-healthy foods Select low-salt, low-fat foods. Limit sodium intake to 2,400 mg per day or the amount suggested by your healthcare provider. Limit canned, dried, cured, packaged, and fast foods. These can contain a lot of salt. Eat 8 to 10 servings of fruits and vegetables every day. Choose lean meats, fish, or chicken. Eat whole-grain pasta, brown rice, and beans. Eat 2 to 3 servings of low-fat or fat-free dairy products. Ask your doctor about the DASH eating plan. This plan helps reduce blood pressure. When you go to a restaurant, ask that your meal be prepared with no added salt. Maintain a healthy weight Ask your healthcare provider how many calories to eat a day. Then stick to that number. Ask your healthcare provider what weight range is healthiest for you. If you are overweight, a weight loss of only 3% to 5% of your body weight can help lower blood pressure. Generally, a good weightloss goal is to lose 10% of your body weight in a year. Limit snacks and sweets. Get regular exercise. Get up and get active Choose activities you enjoy. Find ones you can do with friends or family. This includes bicycling, dancing, walking, and jogging. Park farther away from building entrances. Use stairs instead of the elevator. When you can, walk or bike instead of driving. [place] leaves, garden, or do household repairs. Be active at a moderate to vigorous level of physical activity for at least 40 minutes for a minimum of 3 to 4 days a week. Manage stress Make time to relax and enjoy life. Find time to laugh. Communicate your concerns with your loved ones and your healthcare provider. Visit with family and friends, and keep up with hobbies. Limit alcohol and quit smoking Men should have no more than 2 drinks per day. Women should have no more than 1 drink per day. Talk with your healthcare provider about quitting smoking. Smoking significantly increases your risk for heart disease and stroke. Ask your healthcare provider about community smoking cessation programs and other options. Medicines If lifestyle changes aren t enough, your healthcare provider may prescribe high blood pressure medicine. Take all medicines as prescribed. If you have any questions about your medicines, ask your healthcare provider before stopping or changing them. 0301-2512 [employer]. [address] [facility], [place] [address]. All rights reserved. This information is not intended as a substitute for professional medical care. Always follow yourhealthcare professional's instructions. Established High Blood Pressure High blood pressure (hypertension) is a chronic disease. Often, healthcare providers don t know what causes it. But it can be caused by certain health conditions and medicines. If you have high blood pressure, you may not have any symptoms. If you do have symptoms, they may include headache, dizziness, changes in your vision, chest pain, and shortness of breath. But even without symptoms, high blood pressure that s not treated raises your risk for heart attack, heart failure, and stroke. High blood pressure is a serious health risk and shouldn t be ignored. Blood pressure measurements are given as 2 numbers. Systolic blood pressure is the upper number. This is the pressure when the heart contracts. Diastolic blood pressure is the lower number. This is the pressure when the heart relaxes between beats. You will see your blood pressure readings written together. For example, a person with a systolic pressure of 118 and a diastolic pressure of 78 will have 118/78 written in the medical record. Blood pressure is categorized as normal, elevated, or stage 1 or stage 2 high blood pressure: Normal blood pressure is systolic of less than 120 and diastolic of less than 80 (120/80) Elevated blood pressure is systolic of 120 to 129 and diastolic less than 80 Stage 1 high blood pressure is systolic is 130 to 139 or diastolic between 80 to 89 Stage 2 high blood pressure is when systolic is 140 or higher or the diastolic is 90 or higher Home care If you have high blood pressure, follow these home care guidelines to help lower your blood pressure. If you are taking medicines for high blood pressure, these methods may reduce or end your need for medicines in the future. Start a weight-loss program if you are overweight. Cut back on how much salt you get in your diet. Here s how to do this: oDon t eat foods that have a lot of salt. These include olives, pickles, smoked meats, and salted potato chips. oDon t add salt to your food at the table. oUse only small amounts of salt when cooking. Start an exercise program. Talk with your healthcare provider about the type of exercise program that would be best for you. It doesn't have to be hard. Even brisk walking for 20 minutes 3 times a week is a good form of exercise. Don t take medicines that stimulate the heart. This includes many odds-jes-boncpeq cold and sinus decongestant pills and sprays, as well as diet pills. Check the warnings about high blood pressure onthe label. Before buying any nrpz-uli-qipshpi medicines or supplements, always ask the pharmacist about the product's potential interaction with your high blood pressure and your high blood pressure medicines. Stimulants such as amphetamine or cocaine could be deadly for someone with high blood pressure. Never take these. Limit how much caffeine you get in your diet. Switch to caffeine-free products. Stop smoking. If you are a long-time smoker, this can be hard. Talk to your healthcare provider about medicines and nicotine replacement options to help you. Also, enroll in a stop-smoking program tomake it more likely that you will quit for good. Learn how to handle stress. This is an important part of any program to lower blood pressure. Learnabout relaxation methods like meditation, yoga, or biofeedback. If your provider prescribed medicines, take them exactly as directed. Missing doses may cause your blood pressure get out of control. If you miss a dose or doses, check with your healthcare provider or pharmacist about what to do. Consider buying an automatic blood pressure machine to check your blood pressure at home. Ask your provider for a recommendation. You can get one of these at most pharmacies. The [place] [employer] recommends the following guidelines for home blood pressure monitoring: Don't smoke or drink coffee for 30 minutes before taking your blood pressure. Go to the bathroom before the test. Relax for 5 minutes before taking the measurement. Sit with your back supported (don't sit on a couch or soft chair); keep your feet on the floor uncrossed. Place your arm on a solid flat surface (like a table) with the upper part of the arm at heartlevel. Place the middle of the cuff directly above the bend of the elbow. Check the monitor's instruction manual for an illustration. Take multiple readings. When you measure, take 2 to 3 readings one minute apart and record all of the results. Take your blood pressure at the same time every day, or as your healthcare provider recommends. Record the date, time, and blood pressure reading. Take the record with you to your next medical appointment. If your blood pressure monitor has a built-in memory, simply take the monitor with you to your next appointment. Call your provider if you have several high readings. Don't be frightened by a single high blood pressure reading, but if you get several high readings, check in with your healthcare provider. Note: When blood pressure reaches a systolic (top number) of 180 or higher OR diastolic (bottom number) of 110 or higher, seek emergency medical treatment. Follow-up care You will need to see your healthcare provider regularly. This is to check your blood pressure and to make changes to your medicines. Make a follow-up appointment as directed. Bring the record of yourhome blood pressure readings to the appointment. When to seek medical advice Call your healthcare provider right away if any of these occur: Blood pressure reaches a systolic (upper number) of 180 or higher OR a diastolic (bottom number) of110 or higher Chest pain or shortness of breath Severe headache Throbbing or rushing sound in the ears Nosebleed Sudden severe pain in your belly (abdomen) Extreme drowsiness, confusion, or fainting Dizziness or spinning sensation (vertigo) Weakness of an arm or leg or one side of the face You have problems speaking or seeing [id number] [employer]. [address] [place] [address], [place] [address]. All rights reserved. This information is not intended as a substitute for professional medical care. Always follow yourhealthcare professional's instructions. Additional Information VACCINATE! IT SAVES LIVES! Members of the community who have not yet received the COVID-19 vaccine and would like to receive it can visit one of [facility] vaccine clinics. There are many vaccine clinic locations within the [facility]. For locations and available times, please visit [email or web address] It is important to note that some COVID mobile vaccine clinics are held outdoors and may be canceled in rainy or stormy conditions. To learn more about pediatric vaccinations (ages 5-11), we invite you to visit the [facility] webpage. [email or web address] learn more about the COVID-19 vaccine, we invite you to visit the CDC website for a list of frequently asked questions. https://www.cdc.gov/coronavirus/2019-ncov/vaccines/faq.html [facility] Patient Portal Access Instructions: Stay connected with your healthcare team and access your personal medical information anytime with the [facility] Patient Portal. If you would like a full copy of your medical records please contact the [facility] Medical Records Department Sunday through Sunday between 8a.m. and 4:30p.m. Please follow the directions below to access the portal: 1.Access the email account you provided upon registration to the [facility].2.Look for an invitation email from [facility].3.Open the email and access the invitation link: Accept Invitation to [facility]4.Fill in the required [place] to create your account. Sign into [email or web address] with your username and password that you created in the above steps to stay up to date. You can then view a summary of results, a summary of your visits, and the ability to download your summaries to your computer or send the information securely to a physician. Remember that your healthcare information is confidential, so carefully consider who you will allow to register on the [facility] Patient Portal for access to your information. You can also access the [facility] Patient Portal on the [employer]. Simply click on "Health Records" under "[facility]" and then click on the [facility] logo. HOW TO SAFELY DISPOSE OF PRESCRIPTION MEDICATIONS Please use one of the following methods to safely dispose of your unused medications. 1.Use a drug disposal kit: the drug disposal pouch allows you to safely discard your old and unuseddrugs. Ask your nurse to give you one when you are discharged.2.Visit a local take-back location: Many local pharmacies and police departments have programs that collect old and unwanted prescriptiondrugs. Call your local pharmacy or go to http://[employer]/6O2Ub4o to find one close to you.3.Make use of household items: Use cat litter or old coffee grounds to dispose medications if other options arenot available. Mix your drugs with these household products, seal them in an airtight container andthrow it into the garbage. Call [facility]: [phone] to be sure your drugs can be disposed of in this way. Some medicines may require a different approach.4.Never flush your medications down the toilet. IF YOU HAVE BEEN PRESCRIBED AN OPIOIDS FOR PAIN If you have been prescribed an opioid (such as hydrocodone, oxycodone or morphine), it is critical to understand the possible side effects and risks of opioid pain medications. Even when taken as directed, opioids can have several side effects including: Tolerance, meaning you might need to take more of a medication for the same pain relief. Nausea, vomiting and/or constipation. Sleepiness, dizziness, dry mouth, confusion, depression or itching. Physical dependence, meaning you have withdrawal symptoms when a medication is stopped ? this can develop within a few days. KNOW YOUR RESPONSIBILITIES It is important to know exactly how much and how often to take the opioid pain medications you are prescribed. Never take opioids in higher amounts or more often than prescribed. Do not combine opioids with alcohol or other drugs that cause drowsiness, such as benzodiazepines, also known as benzos,including diazepam and alprazolam, muscle relaxants or sleep aids. Never sell or share prescriptionopioids. This is illegal. Store opioids in a secure place and out of reach of others (including children, family, friends and visitors). The last page(s) of this document has been signed and retained as a CHART COPY Signatures Patient Education Materials Controlling High Blood Pressure Hypertension, Established Medication Leaflets lorazepam (oral) My discharge plan and instructions have been reviewed and explained to me and IBLAZE JOYCE J understand my current condition and have read and understand these discharge instructions. I have received a written copy of the plan/instructions. If I have questions, I am aware that I should contactmy doctor. Patient/Chief Of Production Signature: Date/Time: Relationship to Patient: Witness Name/Signature: Date/Time: [facility]10-19-2024 Note ORIGINAL EXAMINATION: CT OF THE HEAD WITHOUT CONTRAST 04/26/2024 11:51 am TECHNIQUE: CT of the head was performed without the administration of intravenous contrast. Automated exposure control, iterative reconstruction, and/or weight based adjustment of the mA/kV was utilized to reduce the radiation dose to as low as reasonably achievable. COMPARISON: None. HISTORY: ORDERING SYSTEM PROVIDED HISTORY: Reason for Exam: Headache FINDINGS: BRAIN/VENTRICLES: There is no acute intracranial hemorrhage, mass effect or midline shift. No abnormal extra-axial fluid collection. The harris-white differentiation is maintained without evidence of an acute infarct. There is no evidence of hydrocephalus. ORBITS: The visualized portion of the orbits demonstrate no acute abnormality. SINUSES: The visualized paranasal sinuses and mastoid air cells demonstrate no acute abnormality. SOFT TISSUES/SKULL: No acute abnormality of the visualized skull or soft tissues. IMPRESSION: No acute intracranial abnormality. Interpreted by: Edwin Banegas DO Preliminary Report By: Edwin Banegas DO Electronically signed By Edwin Banegas DO Dictated Date: 04/26/2024 12:04:38 PM Prelim Date: 04/26/2024 12:05:25 PM Sign Date: 04/26/2024 12:05:25 PM Ordering Provider: [facility]10-19-2024 Note ORIGINAL EXAMINATION: ONE XRAY VIEW OF THE CHEST 04/26/2024 11:50 am COMPARISON: None. HISTORY: ORDERING SYSTEM PROVIDED HISTORY: Reason for Exam: chest pain FINDINGS: The lungs are without acute focal process. There is no effusion or pneumothorax. The cardiomediastinal silhouette is without acute process. The osseous structures are without acute process. IMPRESSION: No acute process. Interpreted by: Edwin Banegas DO Preliminary Report By: Edwin Banegas DO Electronically signed By Edwin Banegas DO Dictated Date: 04/26/2024 12:04:06 PM Prelim Date: 04/26/2024 12:04:29 PM Sign Date: 04/26/2024 12:04:29 PM Ordering Provider: [facility]10-19-2024 NoteSinus rhythm Left ventricular hypertrophy Electronic Signature: MD TRINI CHRISTIANSON MD 04/26/2024 11:20:[facility] 10-17-2024 History of Present illness Narrative* Kian Aceves, PT - 04/24/2024 11:30 AM EDT Episode Visit Count: 14 Therapist That Will Accept/Oversee The Plan Of Care: Kian Aceves PT Start of Care Date: 01/28/24 Onset Date: 12/29/23 Plan of Care Certification Date: 04/07/24 Next Certification Due Date: 05/12/24 Patient Identified by Name and Date of : Yes REHABILITATION AND SPORTS THERAPY PHYSICAL THERAPY TREATMENT NOTE ASSESSMENT: Crystal Thakur tolerated the session with expected muscle soreness. She demonstrated good form with all therapeutic exercises. The patient will continue to benefit from ongoing skilled physical therapy to progress toward set goals and for reassessment by supervising therapist. PLAN FOR NEXT VISIT: Continue with phase 3 strengthening SUBJECTIVE: The shoulder is sore. Sore from the exercises but she expects this. Pain: Pain Pain Location: Shoulder - Left OBJECTIVE MEASURES WITH LEVEL OF FUNCTION: L shoulder scaption 130 degrees TREATMENT: Therapeutic Exercise: 1: Seated shoulder pulleys x 20 flexion 2: Shoulder scaption 2# 3 x 10 3: Standing bicep curl 5# 2 x 10 4: No Money's GTB 3 x 12 5: Reaching 1-5 to fatigue x 2 6: Row GTB 2 x 10 Skilled Intervention: Patient was educated in proper exercise technique and purpose for exercises. Correct performance of therapeutic exercises was facilitated with verbal and visual cuing. Billing Therapeutic Exercise Treatment Minutes: 43 Skilled Treatment Time Minutes (timed and untimed codes): 43 Total Session Time (minutes): 43 Session Start Time : 1130 Session Stop Time : 1213 Kian Aceves PT [facility] History of Present illness Narrative* Kian Aceves PT - 04/21/2024 2:41 PM EDT Episode Visit Count: 13 Therapist That Will Accept/Oversee The Plan Of Care: Kian Aceves PT Start of Care Date: 01/28/24 Onset Date: 12/29/23 Plan of Care Certification Date: 04/07/24 Next Certification Due Date: 05/12/24 Patient Identified by Name and Date of : Yes REHABILITATION AND SPORTS THERAPY PHYSICAL THERAPY TREATMENT NOTE ASSESSMENT: Crystal Thakur tolerated the session with expected muscle soreness. She demonstrated difficulty with getting on a jacket due to LUE weakness. The patient will continue to benefit from ongoing skilled physical therapy to progress toward set goals. PLAN FOR NEXT VISIT: SUBJECTIVE: The shoulder was feeling good. Sore from pulling yesterday. Pain: Pain Pain Location: Shoulder - Left OBJECTIVE MEASURES WITH LEVEL OF FUNCTION: TREATMENT: Therapeutic Exercise: 1: Seated shoulder pulleys x 20 flexion 2: Seated shoulder flexion 1# 2 x 10 3: Standing scaption 1# 2 x 10 4: Standing bicep curl 5# x10 then x8 5: Standing shoulder extension pink TB 2 x 10 6: Wall push-ups x 15 Skilled Intervention: Patient was educated in proper exercise technique and purpose for exercises. Provided written instruction for home exercise program to facilitate proper performance and compliance. Billing Therapeutic Exercise Treatment Minutes: 45 Skilled Treatment Time Minutes (timed and untimed codes): 45 Total Session Time (minutes): 45 Session Start Time : 1441 Session Stop Time : 1526 Kian Aceves PT [facility]24 NoteHNO ID: [id number] Author: VITO CONTRERAS PA-C Service: ? Author Type: Physician Furniture Upholsterer Type: Progress Notes Filed: 04/15/2024 13:22 Note Text: Vito Contreras PA-C Department of Orthopaedics April 15, 2024 SURGERY: Left shoulder arthroscopic rotator cuff repair of supraspinatus 1 cm, open biceps tenodesis and acromioplasty SUBJECTIVE: Returns to clinic now 3 months status post the above procedure. Progressing with PT. Exam: Examination of shoulder reveals active forward elevation to 160. ER to 60. 5/5 abduction strength. ASSESSMENT: Z98.890 S/P left rotator cuff repair (primary encounter diagnosis) SUMMARY/PLAN: Patient is doing well. Progress to PT phase 3 exercises. No formal follow up needed, return to clinic with any concerns. [facility] ANN [facility] History of Present illness Narrative* Vito Contreras PA-C - 04/15/2024 1:13 PM EDT Vito Contreras PA-C Department of Orthopaedics April 15, 2024 SURGERY: Left shoulder arthroscopic rotator cuff repair of supraspinatus 1 cm, open biceps tenodesis and acromioplasty SUBJECTIVE: Returns to clinic now 3 months status post the above procedure. Progressing with PT. Exam: Examination of shoulder reveals active forward elevation to 160. ER to 60. 5/5 abduction strength. ASSESSMENT: Z98.890 S/P left rotator cuff repair (primary encounter diagnosis) SUMMARY/PLAN: Patient is doing well. Progress to PT phase 3 exercises. No formal follow up needed, return to clinic with any concerns. Vito Contreras PA-C documented [facility]Tr[facility] History of Present illness Narrative* Kian Aceves, PT - 04/14/2024 3:16 PM EDT Program_ID:[id number] Access Code: [email or web address] URL: [email or web address] Date: 04-14-2024 Prepared By: Kian Aceves Program Notes Exercises - Seated Shoulder Flexion AAROM with Ernestina Behind - 1 x daily - 7 x weekly - 4 sets - 10 reps - Seated Shoulder External Rotation AAROM with Dowel - 1 x daily - 7 x weekly - 4 sets - 10 reps - Standing Single Arm Bicep Curls Supinated with Dumbbell - 1 x daily - 7 x weekly - 4 sets - 10 reps - Standing Shoulder Internal Rotation Stretch with Towel - 1 x daily - 7 x weekly - 4 sets - 10 reps - Standing Isometric Shoulder Internal Rotation at Doorway - 1 x daily - 7 x weekly - 4 sets - 10 reps - Standing Isometric Shoulder External Rotation with Doorway - 1 x daily - 7 x weekly - 4 sets - 10 reps - Standing Isometric Shoulder Abduction with Doorway - Arm Bent - 1 x daily - 7 x weekly - 4 sets - 10 reps - Standing Shoulder Posterior Capsule Stretch - 1 x daily - 7 x weekly - 2 sets - 10 reps - Shoulder External Rotation and Scapular Retraction with Resistance - 1 x daily - 7 x weekly - 4 sets - 10 reps * Kian Aceves, DAVID - 04/14/2024 2:43 PM EDT Episode Visit Count: 12 Therapist That Will Accept/Oversee The Plan Of Care: Kian Aceves PT Start of Care Date: 01/28/24 Onset Date: 12/29/23 Plan of Care Certification Date: 04/07/24 Next Certification Due Date: 05/12/24 Patient Identified by Name and Date of : Yes REHABILITATION AND SPORTS THERAPY PHYSICAL THERAPY TREATMENT NOTE ASSESSMENT: Crystal Thakur tolerated the session with soreness and fatigue of the muscles of the L shoulder. She demonstrated good form with all therapeutic exercises. The patient will continue to benefit from ongoing skilled physical therapy to progress toward set goals. PLAN FOR NEXT VISIT: Continue with phase 3 strengthening as tolerated SUBJECTIVE: The shoulder has been better lately. Sore after hanging some clothes. 4 loads of clothes. Pain: Pain Pain Location: Shoulder - Left OBJECTIVE MEASURES WITH LEVEL OF FUNCTION: UE AROM L Shoulder Flex: 131 Degrees TREATMENT: Therapeutic Exercise: 2: Seated shoulder pulleys into flexion x 20 3: Standing L shoulder scaption 1# x 8 (in flexion but no pain with scaption) 4: Standing bicep curl 4# 3 x 10 5: Wall taps waering 1# 1-5, to fatigue x 1 set 6: No Moneys lvl 1 2 x 12 Skilled Intervention: Patient was educated in proper exercise technique and purpose for exercises. Provided written instruction for home exercise program to facilitate proper performance and compliance. Billing Therapeutic Exercise Treatment Minutes: 43 Skilled Treatment Time Minutes (timed and untimed codes): 43 Total Session Time (minutes): 43 Session Start Time : 1443 Session Stop Time : 1526 Kian Aceves PT [facility] Telephone encounter Note * Telephone Encounter - Jaskaran Quiroz APRN.CNP - 04/14/2024 9:14 AM EDT The following approved medication requests have been transmitted electronically. Requested Prescriptions Pending Prescriptions Disp Refills methocarbamol (ROBAXIN) 500 mg tablet 180 tablet 2 Sig: Take 2 tablets by mouth three times a day. As needed for pain Jaskaran Quiroz APRN.CNP [facility]10-07-[facility]24 Miscellaneous Notes* Telephone Encounter - Jaskaran Quiroz APRN.CNP - 04/14/2024 9:14 AM EDT The following approved medication requests have been transmitted electronically. Requested Prescriptions Pending Prescriptions Disp Refills methocarbamol (ROBAXIN) 500 mg tablet 180 tablet 2 Sig: Take 2 tablets by mouth three times a day. As needed for pain Jaskaran Quiroz APRN.CNP * Telephone Encounter - Fozia Mathew LPN - 04/14/2024 9:11 AM EDT Prescription Refill Information The patient has been identified by name and date of : Yes Caregiver verified no other encounters exist for this prescription request: Yes Caregiver confirmed with patient/requestor that no other refills are due, in the near future, with this provider at this time: Yes The last office visit in the department: 04/10/2024 Does the patient have a future office visit with this provider/department: Yes Requested Prescriptions Pending Prescriptions Disp Refills methocarbamol (ROBAXIN) 500 mg tablet 180 tablet 2 Sig: Take 2 tablets by mouth three times a day. As needed for pain Fozia Mathew LPN April 14, 2024 9:12 AM documented in this encounterTr[facility] Telephone encounter Note * Telephone Encounter - Fozia Mathew LPN - 04/14/2024 9:11 AM EDT Prescription Refill Information The patient has been identified by name and date of : Yes Caregiver verified no other encounters exist for this prescription request: Yes Caregiver confirmed with patient/requestor that no other refills are due, in the near future, with this provider at this time: Yes The last office visit in the department: 04/10/2024 Does the patient have a future office visit with this provider/department: Yes Requested Prescriptions Pending Prescriptions Disp Refills methocarbamol (ROBAXIN) 500 mg tablet 180 tablet 2 Sig: Take 2 tablets by mouth three times a day. As needed for pain Fozia Mathew LPN April 14, 2024 9:12 AM [facility]10-[facility] Telephone encounter Note* Telephone Encounter - Cande Zacarias MA - 04/11/2024 1:45 PM EDT See update from pt. Cande Zacarias MA [facility]10-03-2024 Instructions* Patient Instructions* Xochilt Fernandez APRN.YADIRA - 04/10/2024 1:10 PM EDT Increase Nadolol 80 mg twice daily Continue to take all other medications as prescribed. Monitor blood pressure at home, goal 130/80 or less. Message the office with update Follow up in 2 weeks or sooner as needed. documented in this encounterTr[facility] History of Present illness Narrative* Xochilt Fernandez APRN.CNP - 04/10/2024 12:40 PM EDT This is a 64 year old female who presents today with: Patient presents with: Acute Visit: increased BP HISTORY OF PRESENT ILLNESS: Crystal Thakur is a 64 year old female. Patient presents with: Acute Visit: increased BP Here in the office for concerns for elevated blood pressure. Currently taking amlodipine 10 mg daily, hydrochlorothiazide 25 mg daily, lisinopril 20 mg, 2 tablets daily, and Naladol 40 mg 1 tablet twice daily. Checking blood pressure at home, using wrist cuff, 172/101, 141/87, 175/97. Ear swooshingwhich seems to wax and wane. Constant frontal headache. SOB periodically, refers that this will waxand wane since shoulder surgery. 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 Abnormal Pap smear of cervix 09/11/2013 [facility], Seeing HYDRAULIC TESTER Allergic rhinitis Anemia, unspecified Due to heavy menstrual cycles Benign neoplasm of colon 08/2009 POLYPS Cervical high risk human papillomavirus (HPV) DNA test positive 09/18/2013 Cystocele, midline Diabetes mellitus type II, controlled (HCC) metformin Diverticulosis Esophageal reflux 1999 RESOLVED due to diet change Esophagitis, unspecified Essential hypertension, benign 1998 Fatty liver Fibromuscular dysplasia (HCC) renal and carotid arteries; follows with [facility] Fibromyalgia Giant cell arteritis (HCC) 2020 Heart palpitations nadalol helps Incomplete uterovaginal prolapse Left shoulder pain Obesity, unspecified Osteoarthrosis, unspecified whether generalized or localized, lower leg bilateral knees > hips Other and unspecified hyperlipidemia 1998 has been on meds in past, had tolerated Lipitor but afraid of statins Phlebitis and thrombophlebitis of superficial vessels of lower extremities 3rd child 1985, right leg Renal stones Varicose veins of other sites 2006 h/o varicose veins onset with first age of 20, had total of 4 pregnancies last was twins.First Vein stripping right leg surgery was 1992 at [facility], Second surgery 1993 to left leg (h/o hernia repair reason for one leg at a time). Here for possible laser surgery to remove lumpy and rope type veins. PAST SURGICAL HISTORY Procedure Laterality Date COLSC FLX W/RMVL OF TUMOR POLYP LESION SNARE TQ 01/14/2010 DILATION & CURETTAGE DX&/THER NONOBSTETRIC 2006 Dilation & curettage-HYPERPLASIA, likely will have hysterectomy within next year EGD TRANSORAL BIOPSY SINGLE/MULTIPLE 01/14/2010 EXC CYST/ABERRANT BREAST TISSUE OPEN 1/> LESION 01/03/2010 Left breast, benign FASCIECTOMY PLANTAR FASCIA PARTIAL SPX 1992 FOOT Left plantar fasciitis release HYSTERECTOMY HX 05/03/2020 TV[facility], uterosacral vaginal vault suspension, A/P repair IUD INSERTION (HYDRAULIC TESTER DEPT)_*FL 05/14/2008 Mirena, removed JOINT REPLACEMENT HX total right knee LIG/TRNSXJ FLP TUBE ABDL/VAG APPR UNI/BI 1988 Tubal ligation NOVASURE 01/2010 PAST SURGICAL HISTORY OF 1984 EXPLORATORY LAP PAST SURGICAL HISTORY OF 1992 BILAT LEG-VEIN STRIPPING PAST SURGICAL HISTORY OF 10/2007, 12/2007 Bilat leg-vein stripping PAST SURGICAL HISTORY OF Right 01/24/2021 Right bicep repair PAST SURGICAL HISTORY OF Right 2018 TKA REMOVE INTRAUTERINE DEVICE 2011 Expelled 3 weeks after insertion REPAIR INGUINAL HERNIA Bilateral 08/30/2022 laparoscopic repair with mesh ROTATOR CUFF REPAIR Right bicept reattachment RPR UMBILICAL HRNA 5 YRS/> REDUCIBLE 1993, 1989, 2007 Repaired 3 Times VAGINOSCOPY 09/25/2013 LSIL ALLERGIES Cymbalta [Duloxetine], Keflex [Cephalexin], Monosodium Glutamate (Msg), Oxycodone, RabbitDander, [place]'s Wort, Atorvastatin, Crestor [Rosuvastatin], Gabapentin, Niacin, Niacinamide, Cats, Aspartame, Doxycycline, Erythromycin, Glutamic Acid, Latex, Sucralose, and Zithromax [Azithromycin] MEDICATIONS Current Outpatient Medications Medication Sig ibuprofen (MOTRIN) 800 mg tablet Take 1 tablet by mouth every 6 hours as needed for pain. MobakidsSTYLE HUGH 14 DAY SENSOR kit apply NEW SENSOR EVERY 14 DAYS TO UPPER ARM docusate sodium (COLACE) 100 mg capsule take 1 capsule by mouth twice a day blood sugar diagnostic (TRUE METRIX GLUCOSE TEST STRIP) test strip Use 4-6 times daily to check blood sugar. Dx:E11.9 insulin:No metFORMIN ER (GLUCOPHAGE XR) 500 mg 24 hr tablet Take 1 tablet by mouth daily with breakfast. ondansetron (ZOFRAN) 4 mg tablet Take 1 tablet by mouth every 8 hours as needed. Lactobacillus acidoph-pectin 75 million cell -100 mg cap Take 1 capsule by mouth once daily. VITAMIN B COMPLEX ORAL Take by mouth once daily. methocarbamol (ROBAXIN) 500 mg tablet Take 2 tablets by mouth three times a day. As needed for pain omeprazole (PRILOSEC) 20 mg capsule Take 1 capsule by mouth daily before breakfast. 1/2 hr before meal. hydroCHLOROthiazide 25 mg tablet Take 1 tablet by mouth once daily. lisinopril (ZESTRIL) 20 mg tablet Take 2 tablets by mouth once daily. coenzyme Q10 (CO Q-10) 100 mg cap capsule Take 2 capsules by mouth once daily. nadolol (CORGARD) 40 mg tablet Take 1 tablet by mouth two times a day. amLODIPine (NORVASC) 10 mg tablet Take 1 tablet by mouth once daily. VITAMIN K2 ORAL Take 100 mcg by mouth once daily. nortriptyline (PAMELOR) 25 mg capsule Take 1 capsule by mouth daily at bedtime. Milk Thistle 150 mg cap Take 1 capsule by mouth once daily. albuterol HFA (PROVENTIL HFA, VENTOLIN HFA) 90 mcg/actuation inhaler Inhale 2 Puffs as instructed every 4 hours as needed. nystatin (MYCOSTATIN) powder Apply 1 application to affected area as needed. benzonatate (TESSALON PERLE) 100 mg capsule Take 1 capsule by mouth three times daily as needed forcough. calcium carbonate/vitamin D3 (CALCIUM WITH VITAMIN D ORAL) Take 1 tablet by mouth twice daily. 600 mg calcium with 1000mg vitamin D3 aspirin, enteric coated (ASPIR-LOW) 81 mg EC tablet Take 1 tablet by mouth once daily. ursodiol (ACTIGALL) 300 mg capsule Take 300 mg by mouth twice daily. lancets (FREESTYLE LANCETS) 28 gauge misc Test blood sugar(s) one times daily. Dx: Type 2 DM - Controlled E11.9 Insulin: No loratadine (CLARITIN) 10 mg ORAL tablet Take 1 tablet by mouth once daily. (Patient taking differently: Take 10 mg by mouth as needed.) No current facility-administered medications for this visit. FAMILY HISTORY Problem Relation Age of Onset Lipids Mother High Cholesterol Hypertension Mother Osteoporosis Mother Arthritis Mother Cataract Mother resolved with surgery other (Other) Mother Meniere's Skin Cancer Mother Psychiatry Father depression, committed suicide age 49 Osteoporosis Maternal Grandmother Thyroid Maternal Grandmother Cancer Maternal Grandfather leukemia Heart Maternal Grandfather Alzheimer's Disease Paternal Grandmother Thyroid Daughter Strabismus Daughter other (turners) Daughter other (aortic stenosis) Daughter Thyroid Daughter other (celiac disease) Daughter other (Fibromyalgia) Daughter other (MVP) Daughter Thyroid Daughter other (MVP) Daughter Hypertension Son other (hypogonadism) Son other (osteoarthritis) Son other (IBS) Son Diabetes Paternal Aunt Anesthesia Problems No Family History Social History Tobacco Use Smoking status: Former Current packs/day: 0.00 Average packs/day: 1 pack/day for 32.0 years (32.0 ttl pk-yrs) Types: Cigarettes Start date: 03/14/1982 Quit date: 03/14/2014 Years since quittin.0 Smokeless tobacco: Never Vaping Use Vaping status: Never Used Substance Use Topics Alcohol use: Yes Comment: rarely Drug use: Yes Comment: CBD gummies and "cigarette" couple times a week REVIEW OF SYSTEMS GENERAL: No weight loss, malaise or fevers/chills HEENT: Negative for frequent or significant headaches, No changes in hearing or vision. + Ear Whooshing NECK: Negative for lumps, goiter, pain and significant neck swelling RESPIRATORY: + SOB CARDIOVASCULAR: Negative for chest pain, leg swelling, orthopnea, or palpitations GI: No nausea, vomiting, or diarrhea/constipation. No hematochezia/melena. No heartburn or reflux symptoms. : No history of dysuria, frequency or incontinence MUSCULOSKELETAL: Negative for joint pain or swelling. SKIN: Negative for lesions, rash, and itching ENDOCRINE: Negative for cold or heat intolerance, polyuria, polydipsia and goiter NEURO: + Headache MOOD: Negative for depression, anxiety, or suicidal ideation. EXAM: BP 160/90 Pulse (P) 71 Resp (P) 16 Wt (P) 84 kg (185 lb 3 oz) LMP 04/17/2016 (Exact Date) SpO2 (P) 96% BMI (P) 29.44 kg/m True BP: 128/69, 126/78, 125/77, 128/78, 133/85. Average: 128/77. Blood pressure taken manually 160/90. PHYSICAL EXAM: General Appearance: Well appearing, alert, in no acute distress, well-hydrated, well nourished. Skin: Skin color, texture, turgor normal, no suspicious rashes or lesions. Head: Normocephalic, no masses, lesions, tenderness or abnormalities. Eyes: Anicteric sclera. Extraocular movements are intact. Ears: External ears normal, canals clear. TM's dull. Lungs: Lungs clear to auscultation. No wheezing, rhonchi, rales. Heart: RRR without murmur, gallop, or rubs. No ectopy. Extremities: No deformities, edema, skin discoloration, clubbing or cyanosis. Good capillary refill. Peripheral Pulses: Normal, Capillary refill <2secs, strong peripheral pulses, Pulses palpable. Neurologic: Gait normal. Sensation grossly intact. ASSESSMENT/PLAN: 1. HYPERTENSION - ICD9: 401.1, ICD10: I10 - Uncontrolled - Continue current medications - Increase Nadolol 80 mg BID - Recommend home blood pressure monitoring, to bring results to next visit - Encouraged sodium restriction, DASH or Mediterranean diet - Recommend regular aerobic exercise - Message the office with BP readings in 4 days. Discussed adding on hydralazine or clonidine if needed if blood pressure above 150/80. Follow-up in 2 weeks or sooner as needed. Discussed treatment plan and patient voices understanding. Patient's questions answered appropriately. Medications and potential side effects were discussed and patient voices understanding. Xochilt Fernandez APRN.YADIRA This note was partially generated using Snip2Code voice recognition system. Note was reviewed for accuracy. There may be minor misspellings or grammar miscues with StudyMaxon voice recognition. documented in this encounterTr[facility] History of Present illness Narrative* Kian Aceves, PT - 04/10/2024 10:43 AM EDT Episode Visit Count: 11 Therapist That Will Accept/Oversee The Plan Of Care: Kian Aceves PT Start of Care Date: 01/28/24 Onset Date: 12/29/23 Plan of Care Certification Date: 04/07/24 Next Certification Due Date: 05/12/24 Patient Identified by Name and Date of : Yes REHABILITATION AND SPORTS THERAPY PHYSICAL THERAPY TREATMENT NOTE ASSESSMENT: Crystal Thakur tolerated the session with expected muscle soreness. She demonstrated good tolerance and form with all therapeutic exercises. The patient will continue to benefit from ongoing skilled physical therapy to progress toward set goals. PLAN FOR NEXT VISIT: AAROM/AROM exercises for the shoulder SUBJECTIVE: The shoulder will get a catch in it. Not as bad as last week. Seems like everything is causing discomfort. Pain: Pain Pain Level: (Not rated) Pain Location: Shoulder - Left OBJECTIVE MEASURES WITH LEVEL OF FUNCTION: UE AROM L Shoulder Flex: 132 Degrees (AROM) UE PROM L Shoulder Flex: 160 Degrees Vitals BP: 159/85 TREATMENT: Therapeutic Exercise: 2: Seated ernestina flexion x 20 then abd x 20 3: Standing wand flexion AAROM x 10 4: Standing wand abd x 10 AAROM 5: Standing shoulder AROM (staying below 90 degrees) x 10 6: Standing shoulder abd AROM 2 x 10 7: Shoulder abd iso 2 x 10 8: Standing bicep curls 3# x 10 Skilled Intervention: Patient was educated in proper exercise technique and purpose for exercises. Correct performance of therapeutic exercises was facilitated with verbal and visual cuing. [place] Therapeutic Exercise Treatment Minutes: 49 Skilled Treatment Time Minutes (timed and untimed codes): 49 Total Session Time (minutes): 49 Session Start Time : 1043 Session Stop Time : 1132 Kian Aceves PT documented in this encounterTr[facility]10[facility] Telephone encounter Note * Telephone Encounter - Mari Pederson LPN - 04/10/2024 10:34 AM EDT Pt has appt on 04/10/24 with A Tannhof. Mari Pederson LPN [facility]10-03-[facility]24 Miscellaneous Notes* Telephone Encounter - Mari Pederson LPN - 04/10/2024 10:34 AM EDT Pt has appt on 04/10/24 with A Tannhof. Mari Pederson LPN * Telephone Encounter - Vania Lancaster LPN - 04/09/2024 2:07 PM EDT Pt's appt was rescheduled d/t provider leaving for emergency. Called pt to check on her & she reported she checked her BP ~1:30pm today & it was 148/82. States she has a nagging headache but otherwise feels ok. States she is taking it easy today. Pt told she will need to be seen toribio if shedevelops CP, sob, worsening PERRY or increased BP . Pt voiced understanding. Vania Lancaster LPN * Telephone Encounter - Vania Lancaster LPN - 04/09/2024 10:01 AM EDT Pt states her BP has been increasing over the last month. She checked her BP several times this am & the highest reading was 172/101 & the last reading (9:45am) was the lowest at 152/90. Pt denies chest pain, dizziness or lightheadedness. States when she got up this am she felt wooshing in her ears. States she has sob at times. Pt is taking BP meds as prescribed. Appt was given for 3pm today. Vania Lancaster LPN documented in this encounterTr[facility]10-[facility] Telephone encounter Note * Telephone Encounter - Vania Lancaster LPN - 04/09/2024 2:07 PM EDT Pt's appt was rescheduled d/t provider leaving for emergency. Called pt to check on her & she reported she checked her BP ~1:30pm today & it was 148/82. States she has a nagging headache but otherwise feels ok. States she is taking it easy today. Pt told she will need to be seen toribio if shedevelops CP, sob, worsening PERRY or increased BP . Pt voiced understanding. Vania Lancaster LPN [facility]10-[facility] Telephone encounter Note* Telephone Encounter - Vania Lancaster LPN - 04/09/2024 10:01 AM EDT Pt states her BP has been increasing over the last month. She checked her BP several times this am & the highest reading was 172/101 & the last reading (9:45am) was the lowest at 152/90. Pt denies chest pain, dizziness or lightheadedness. States when she got up this am she felt wooshing in her ears. States she has sob at times. Pt is taking BP meds as prescribed. Appt was given for 3pm today. Vania Lancaster LPN [facility] History of Present illness Narrative* Kian Aceves, PT - 04/07/2024 5:00 PM EDT Images from the original note were not included. Episode Visit Count: 10 Therapist That Will Accept/Oversee The Plan Of Care: Kian Aceves PT Start of Care Date: 01/28/24 Onset Date: 12/29/23 Plan of Care Certification Date: 04/07/24 Next Certification Due Date: 05/12/24 Patient Identified by Name and Date of : Yes REHABILITATION AND SPORTS THERAPY PHYSICAL THERAPY PROGRESS REPORT PLAN OF CARE UPDATE: Assessment: Crystal Thakur demonstrates difficulty with reaching overhead, lifting, and level of independencewith the HEP and improvements in overall shoulder ROM and strength. The patient has progressed toward goals. Patient continues to present with impairments in independence in exercise, overall function, and strength that interfere with reaching behind back, reaching overhead, lifting . Current prognosis is Good due to: current objective clinical presentation . The patient will benefit from continued skilled therapy services to meet the updated goals for this plan of care as noted below. Goals updated 04/07/2024 Goals for Episode of Care: created on 01/28/24 through 05/19/24 [place] in home exercise program. - MET Patient will decrease pain rating by 2 points to meet minimal clinical important difference for numeric pain rating scale. - Progressing Perform closing a car door without pain. - Not met Increase ROM of LUE to equal that of the RUE - Progressing Increased strength of LUE to 5/5 for return to PLOF - unable to assess until future visit Patient Goals: Return to PLOF Time Frame for Goals and Treatment : 05/19/24 Patient Goals: Return to PLOF Planned Interventions, Frequency, and Duration: (1x/week for 3 weeks, 2x/week for 1 week), 4 weeks Total Number of Visits Planned: 5 Patient to be seen for Therapeutic exercise (90306), Neuromuscular re-education (84821), Manual therapy (46710), Therapeutic activities (83459), Self-longterm management (32460), Patient/Family/Caregiver Education PLAN FOR NEXT VISIT: AAROM/AROM exercises SUBJECTIVE: Had a recent flare up from the exercises. Feeling better today. Patient Goals: Return to PLOF Functional Limitations: reaching behind back, reaching overhead, lifting Prior Level of Function: Independent without limitations Intake Information: Prescription present Previous Treatment: Surgery Pain: Pain Pain Level: (not rated) PROMIS Scales 04/04/2024 02/28/2024 01/26/2024 Higher is Better Phys Func - Score 40 (mild dysfunction) 36 (moderate dysfunction) 32 (moderate dysfunction) Phys Func - Percentile 16 8 4 Self-Eff Symptom - Score 48 (Average) 41 (Average) 39 (Low) Self-Eff Symptom - Percentile 42 18 14 T-scores: mean of general population = 50. 5 points is clinically meaningfully difference Percentiles provide an indication of how the patient's score ranks in relation to the general population. Higher percentile rankings indicate better function/quality of life. 50th percentile is the average of the general population and indicates half of respondents had a worse score. OBJECTIVE MEASURES WITH LEVEL OF FUNCTION: UE AROM L Shoulder Flex: 120 Degrees L Shoulder ABduction: 90 Degrees UE and Cervical Strength Strength Tested: Shoulder All L Shoulder Flexion: 3-/5 TREATMENT: Therapeutic Exercise: 1: All objective measures taken 2: Seated ernestina flexion x 20 then abd x 20 3: Shoulder abd iso 2 x 10 4: AAROM wand flexion 2 x 10 Skilled Intervention: Patient was educated in proper exercise technique and purpose for exercises. Provided written instruction for home exercise program to facilitate proper performance and compliance. Correct performance of therapeutic exercises was facilitated with verbal and visual cuing. Billing Therapeutic Exercise Treatment Minutes: 43 Skilled Treatment Time Minutes (timed and untimed codes): 43 Total Session Time (minutes): 43 Session Start Time : 1700 Session Stop Time : 1743 Kian Aceves PT documented in this encounterTr[facility] Telephone encounter Note * Telephone Encounter - Jaskaran Quiroz APRN.CNP - 04/04/2024 10:03 AM EDT The following approved medication requests have been transmitted electronically. Requested Prescriptions Pending Prescriptions Disp Refills ibuprofen (MOTRIN) 800 mg tablet 360 tablet 3 Sig: Take 1 tablet by mouth every 6 hours as needed for pain. Jaskaran Quiroz APRN.CNP [facility]09-27-[facility]24 Miscellaneous Notes* Telephone Encounter - Jaskaran Quiroz APRN.CNP - 04/04/2024 10:03 AM EDT The following approved medication requests have been transmitted electronically. Requested Prescriptions Pending Prescriptions Disp Refills ibuprofen (MOTRIN) 800 mg tablet 360 tablet 3 Sig: Take 1 tablet by mouth every 6 hours as needed for pain. Jaskaran Quiroz APRN.CNP * Telephone Encounter - Fozia Mathew LPN - 04/04/2024 9:57 AM EDT Prescription Refill Information The patient has been identified by name and date of : Yes Caregiver verified no other encounters exist for this prescription request: Yes Caregiver confirmed with patient/requestor that no other refills are due, in the near future, with this provider at this time: Yes The last office visit in the department: 12/29/2023 Does the patient have a future office visit with this provider/department: Yes Requested Prescriptions Pending Prescriptions Disp Refills ibuprofen (MOTRIN) 800 mg tablet 360 tablet 3 Sig: Take 1 tablet by mouth every 6 hours as needed for pain. Fozia Mathew LPN April 04, 2024 9:57 AM documented in this encounterTr[facility] Telephone encounter Note * Telephone Encounter - Fozia Mathew LPN - 04/04/2024 9:57 AM EDT Prescription Refill Information The patient has been identified by name and date of : Yes Caregiver verified no other encounters exist for this prescription request: Yes Caregiver confirmed with patient/requestor that no other refills are due, in the near future, with this provider at this time: Yes The last office visit in the department: 12/29/2023 Does the patient have a future office visit with this provider/department: Yes Requested Prescriptions Pending Prescriptions Disp Refills ibuprofen (MOTRIN) 800 mg tablet 360 tablet 3 Sig: Take 1 tablet by mouth every 6 hours as needed for pain. Fozia Mathew LPN April 04, 2024 9:57 AM [facility]09-23-2024 History of Present illness Narrative* Kian Aceves, PT - 03/31/2024 9:56 AM EDT Program_ID:[id number] Access Code: [email or web address] URL: [email or web address] Date: 03-31-2024 Prepared By: Kian Aceves Program Notes Exercises - Seated Shoulder Flexion AAROM with Ernestina Behind - 1 x daily - 7 x weekly - 4 sets - 10 reps - Seated Shoulder Flexion Towel Slide at Table Top - 1 x daily - 7 x weekly - 4 sets - 10 reps - Seated Shoulder External Rotation AAROM with Dowel - 1 x daily - 7 x weekly - 4 sets - 10 reps - Elbow Flexion PROM - 1 x daily - 7 x weekly - 4 sets - 10 reps - Standing Shoulder Extension ROM with Dowel - 1 x daily - 7 x weekly - 4 sets - 10 reps - Standing Single Arm Bicep Curls Supinated with Dumbbell - 1 x daily - 7 x weekly - 4 sets - 10 reps - Standing Shoulder Internal Rotation Stretch with Towel - 1 x daily - 7 x weekly - 4 sets - 10 reps - Standing Isometric Shoulder Internal Rotation at Doorway - 1 x daily - 7 x weekly - 4 sets - 10 reps - Standing Isometric Shoulder External Rotation with Doorway - 1 x daily - 7 x weekly - 4 sets - 10 reps - Standing Isometric Shoulder Abduction with Doorway - Arm Bent - 1 x daily - 7 x weekly - 4 sets - 10 reps - Standing Shoulder Posterior Capsule Stretch - 1 x daily - 7 x weekly - 2 sets - 10 reps * Kian Aceves, PT - 03/31/2024 9:15 AM EDT Episode Visit Count: 9 Therapist That Will Accept/Oversee The Plan Of Care: Kian Aceves PT Start of Care Date: 01/28/24 Onset Date: 12/29/23 Plan of Care Certification Date: 02/28/24 Next Certification Due Date: 04/03/24 Patient Identified by Name and Date of : Yes REHABILITATION AND SPORTS THERAPY PHYSICAL THERAPY TREATMENT NOTE ASSESSMENT: Crystal Thakur tolerated the session with expected muscle soreness. She demonstrated good form with all therapeutic exercises. The patient will continue to benefit from ongoing skilled physical therapy to progress toward set goals and for reassessment by supervising therapist. PLAN FOR NEXT VISIT: AAROM/AROM exercises for the L shoulder SUBJECTIVE: The shoulder is sore. Pt wants the shoulder to just get better already. Does notice improvement over time in pain. Pain: Pain Pain Level: (Not rated) Pain Location: Shoulder - Left OBJECTIVE MEASURES WITH LEVEL OF FUNCTION: UE AROM L Shoulder Flex: 142 Degrees (AAROM using pulleys) TREATMENT: Therapeutic Exercise: 1: Seated pulleys into scaption 2x10 2: Seated wand flexion AAROM 2 x 10 3: Wand AAROM ER 2x10 4: Cross body stretch x 5 holding 5 sec 10: Wall slides #1-5 2 x 10 11: Standing IR stretch with strap x 10 12: Bicep curl 3# 3 x 10 Skilled Intervention: Patient was educated in proper exercise technique and purpose for exercises. Skilled judgment was used in selection of appropriate interventions. Billing Therapeutic Exercise Treatment Minutes: 45 Skilled Treatment Time Minutes (timed and untimed codes): 45 Total Session Time (minutes): 45 Session Start Time : 914 Session Stop Time : 1000 Kian Aceves PT documented in this encounterTr[facility]09-[facility] History of Present illness Narrative* Kian Aceves PT - 03/21/2024 3:26 PM EDT Program_ID:[id number] Access Code: [email or web address] URL: [email or web address] Date: 03-21-2024 Prepared By: Kian Aceves Program Notes Exercises - Seated Shoulder Flexion AAROM with Ernestina Behind - 1 x daily - 7 x weekly - 4 sets - 10 reps - Seated Shoulder Flexion Towel Slide at Table Top - 1 x daily - 7 x weekly - 4 sets - 10 reps - Seated Shoulder External Rotation AAROM with Dowel - 1 x daily - 7 x weekly - 4 sets - 10 reps - Elbow Flexion PROM - 1 x daily - 7 x weekly - 4 sets - 10 reps - Standing Shoulder Extension ROM with Dowel - 1 x daily - 7 x weekly - 4 sets - 10 reps - Standing Single Arm Bicep Curls Supinated with Dumbbell - 1 x daily - 7 x weekly - 4 sets - 10 reps - Standing Shoulder Internal Rotation Stretch with Towel - 1 x daily - 7 x weekly - 4 sets - 10 reps - Standing Isometric Shoulder Internal Rotation at Doorway - 1 x daily - 7 x weekly - 4 sets - 10 reps - Standing Isometric Shoulder External Rotation with Doorway - 1 x daily - 7 x weekly - 4 sets - 10 reps - Standing Isometric Shoulder Abduction with Doorway - Arm Bent - 1 x daily - 7 x weekly - 4 sets - 10 reps * Kian Aceves PT - 03/21/2024 3:01 PM EDT Episode Visit Count: 8 Therapist That Will Accept/Oversee The Plan Of Care: Kian Aceves PT Start of Care Date: 01/28/24 Onset Date: 12/29/23 Plan of Care Certification Date: 02/28/24 Next Certification Due Date: 04/03/24 Patient Identified by Name and Date of : Yes REHABILITATION AND SPORTS THERAPY PHYSICAL THERAPY TREATMENT NOTE ASSESSMENT: Crystal Thakur tolerated the session with expected muscle soreness. She demonstrated good form with all therapeutic exercises. The patient will continue to benefit from ongoing skilled physical therapy to progress toward set goals. PLAN FOR NEXT VISIT: Wall slides, shoulder isometrics, and AAROM exercises SUBJECTIVE: Has been approved for more visits. 8 are approved. Pain: Pain Pain Location: Shoulder - Left OBJECTIVE MEASURES WITH LEVEL OF FUNCTION: UE PROM L Shoulder Flex: 138 Degrees TREATMENT: Therapeutic Exercise: 1: Seated pulleys into scaption 2x10 2: Seated wand flexion AAROM 2 x 10 3: Wand AAROM ER 2x10 4: wand AAROM abduction x 20 5: ER isometric with wand x10 , 5 second holds 6: IR sometric with wand x 10 with 5 second holds 7: Standing abd iso at wall 2 x 10 isometrics 8: Standing IR stretch with strap x 10 9: Wall slides into flexion x 10 Skilled Intervention: Patient was educated in proper exercise technique and purpose for exercises. Provided written instruction for home exercise program to facilitate proper performance and compliance. Correct performance of therapeutic exercises was facilitated with verbal and visual cuing. Billing Therapeutic Exercise Treatment Minutes: 40 Skilled Treatment Time Minutes (timed and untimed codes): 40 Total Session Time (minutes): 40 Session Start Time : 1502 Session Stop Time : 1542 Kian Aceves PT documented in this encounterTr[facility]09-10-2024 Telephone encounter Note * Telephone Encounter - Jaskaran Quiroz APRN.CNP - 03/18/2024 11:41 AM EDT The following approved medication requests have been transmitted electronically. Requested Prescriptions Pending Prescriptions Disp Refills FREESTYLE HUGH 14 DAY SENSOR kit 2 Kit 5 Sig: apply NEW SENSOR EVERY 14 DAYS TO UPPER ARM Jaskaran Quiroz APRN.CNP [facility]09-10-2024 Miscellaneous Notes* Telephone Encounter - Jaskaran Quiroz APRN.CNP - 03/18/2024 11:41 AM EDT The following approved medication requests have been transmitted electronically. Requested Prescriptions Pending Prescriptions Disp Refills FREESTYLE HUGH 14 DAY SENSOR kit 2 Kit 5 Sig: apply NEW SENSOR EVERY 14 DAYS TO UPPER ARM Jaskaran Quiroz APRN.CNP * Telephone Encounter - Kinjal Mistry MA - 03/18/2024 11:37 AM EDT Patient Comment: I need a new script sent to [facility] in [place]. This script did not get transferred from [facility] before they closed. Prescription Refill Information The patient has been identified by name and date of : Yes Caregiver verified no other encounters exist for this prescription request: Yes Caregiver confirmed with patient/requestor that no other refills are due, in the near future, with this provider at this time: No The last office visit in the department: 12/29/23 Does the patient have a future office visit with this provider/department: Yes Requested Prescriptions Pending Prescriptions Disp Refills FREESTYLE HUGH 14 DAY SENSOR kit 2 Kit 5 Sig: apply NEW SENSOR EVERY 14 DAYS TO UPPER ARM Kinjal Mistry MA March 18, 2024 11:37 AM documented in this encounterTr[facility]09-10-2024 Telephone encounter Note * Telephone Encounter - Kinjal Mistry MA - 03/18/2024 11:37 AM EDT Patient Comment: I need a new script sent to [facility] in [place]. This script did not get transferred from [facility] before they closed. Prescription Refill Information The patient has been identified by name and date of : Yes Caregiver verified no other encounters exist for this prescription request: Yes Caregiver confirmed with patient/requestor that no other refills are due, in the near future, with this provider at this time: No The last office visit in the department: 12/29/23 Does the patient have a future office visit with this provider/department: Yes Requested Prescriptions Pending Prescriptions Disp Refills FREESTYLE HUGH 14 DAY SENSOR kit 2 Kit 5 Sig: apply NEW SENSOR EVERY 14 DAYS TO UPPER ARM Kinjal Mistry MA March 18, 2024 11:37 AM [facility]09-03-2024 History of Present illness Narrative* Kian Aceves, PT - 03/11/2024 10:13 AM EDT Program_ID:[id number] Access Code: [email or web address] URL: [email or web address] Date: 03-11-2024 Prepared By: Kian Aceves Program Notes Exercises - Seated Shoulder Flexion AAROM with Ernestina Behind - 1 x daily - 7 x weekly - 4 sets - 10 reps - Seated Shoulder Flexion Towel Slide at Table Top - 1 x daily - 7 x weekly - 4 sets - 10 reps - Seated Shoulder External Rotation AAROM with Dowel - 1 x daily - 7 x weekly - 4 sets - 10 reps - Elbow Flexion PROM - 1 x daily - 7 x weekly - 4 sets - 10 reps - Standing Shoulder Extension ROM with Dowel - 1 x daily - 7 x weekly - 4 sets - 10 reps - Standing Single Arm Bicep Curls Supinated with Dumbbell - 1 x daily - 7 x weekly - 4 sets - 10 reps - Standing Shoulder Internal Rotation Stretch with Towel - 1 x daily - 7 x weekly - 4 sets - 10 reps * Kian Aceves PT - 03/11/2024 9:39 AM EDT Episode Visit Count: 7 Therapist That Will Accept/Oversee The Plan Of Care: Kian Aceves PT Start of Care Date: 01/28/24 Onset Date: 12/29/23 Plan of Care Certification Date: 02/28/24 Next Certification Due Date: 04/03/24 Patient Identified by Name and Date of : Yes REHABILITATION AND SPORTS THERAPY PHYSICAL THERAPY TREATMENT NOTE ASSESSMENT: Crystal Thakur tolerated the session with no issues. She demonstrated improvements inAAROM motion of the L shoulder. The patient will continue to benefit from ongoing skilled physical therapy to progress toward set goals. PLAN FOR NEXT VISIT: Continue with phase 2 exercises SUBJECTIVE: The shoulder is sore today. Overall her shoulder is feeling better. Pain: Pain Pain Location: Shoulder - Left OBJECTIVE MEASURES WITH LEVEL OF FUNCTION: UE AROM L Shoulder Flex: 127 Degrees (During wall slide exercise) L Shoulder Internal Rotation (Functional): Thumb to T10 TREATMENT: Therapeutic Exercise: 1: Seated pulleys into scaption 2x10 3: Wand AAROM ER 2x10 4: wand AAROM abduction x 10 5: ER isometric with wand x10 , 5 second holds 6: IR sometric with wand x 10 with 5 second holds 7: Wall slides flexion 2x10 8: Standing bicep curl 1# 2 x 10 9: Seated shoulder pulleys abduction x 20 10: Standing IR stretch with strap x 10 holding 5-10 sec Skilled Intervention: Patient was educated in proper exercise technique and purpose for exercises. Correct performance of therapeutic exercises was facilitated with verbal and visual cuing. Billing Therapeutic Exercise Treatment Minutes: 31 Skilled Treatment Time Minutes (timed and untimed codes): 31 Total Session Time (minutes): 31 Session Start Time : 938 Session Stop Time : 1010 Pt arrived 8 min late to this appointment Kian Aceves PT documented in this encounterTrinity [facility]08-27-2024 History of Present illness Narrative* Kian Aceves PT - 03/04/2024 2:48 PM EDT Episode Visit Count: 6 Therapist That Will Accept/Oversee The Plan Of Care: Kian Aceves PT Start of Care Date: 01/28/24 Onset Date: 12/29/23 Plan of Care Certification Date: 02/28/24 Next Certification Due Date: 04/03/24 Patient Identified by Name and Date of : Yes REHABILITATION AND SPORTS THERAPY PHYSICAL THERAPY TREATMENT NOTE ASSESSMENT: Crystal Thakur tolerated the session with fatigue and expected muscle soreness. She demonstrated improvements in ability to raise L arm with AAROM wall slides. The patient will continueto benefit from ongoing skilled physical therapy to progress toward set goals. PLAN FOR NEXT VISIT: Asses response to initiation of wall slides and isometrics, give for HEP if favorable. SUBJECTIVE: Pt reports that she saw MARY ANN Jin today and she is pleased with her progress.Pt states that her shoulder is hurting some, has not had Ultram today , trying to cut back on pain medication. Pain: Pain Pain Level: 6 Pain Location: Shoulder - Left Post Treatment Pain Post Treatment Pain Level: No Change Post Treatment Pain Location: Shoulder - Left OBJECTIVE MEASURES WITH LEVEL OF FUNCTION: Form observed throughout session. TREATMENT: Therapeutic Exercise: 1: Seated pulleys into scaption 2x10 2: Wand AAROM flexion in sitting, pt deferred to lay down 3: Wand AAROM ER 2x10 4: wand AAROM abduction x 10 5: ER isometric with wand x10 , 5 second holds 6: IR sometric with wand x 10 with 5 second holds 7: Wall slides flexion 2x10 8: Scapular retractions 2x10 Skilled Intervention: Patient was educated in proper exercise technique and purpose for exercises. Skilled judgment was used in selection of appropriate interventions. Correct performance of therapeutic exercises was facilitated with verbal and visual cuing. Billing Therapeutic Exercise Treatment Minutes: 42 Skilled Treatment Time Minutes (timed and untimed codes): 42 Total Session Time (minutes): 42 Session Start Time : 1446 Session Stop Time : 1528 BOBY Christian PT documented in this encounterTrinity [facility]08-27-2024 NoteHNO ID: [id number] Author: VITO CONTRERAS PA-C Service: ? Author Type: Physician Furniture Upholsterer Type: Progress Notes Filed: 03/04/2024 13:29 Note Text: Vito Contreras PA-C Department of Orthopaedics March 04, 2024 SURGERY: Left shoulder arthroscopic rotator cuff repair supraspinatus 1 cm, open biceps tenodesis and acromioplasty SUBJECTIVE: Patient returns to clinic now 6 weeks status post the above procedure. Has been progressing with PT. Exam: Well healed portal sites. Active forward elevation to 110. ASSESSMENT: Z98.890 S/P left rotator cuff repair SUMMARY/PLAN: We will progress to PT phase 2 exercises. No lifting greater than 1 pound. Wean off pain medication as able. Continue to ice as needed. Return to clinic in 6 weeks for repeat examination. [facility] History of Present illness Narrative* Vito Contreras PA-C - 03/04/2024 1:19 PM EDT Vito Contreras PA-C Department of Orthopaedics March 04, 2024 SURGERY: Left shoulder arthroscopic rotator cuff repair supraspinatus 1 cm, open biceps tenodesis and acromioplasty SUBJECTIVE: Patient returns to clinic now 6 weeks status post the above procedure. Has been progressing with PT. Exam: Well healed portal sites. Active forward elevation to 110. ASSESSMENT: Z98.890 S/P left rotator cuff repair SUMMARY/PLAN: We will progress to PT phase 2 exercises. No lifting greater than 1 pound. Wean off pain medicationas able. Continue to ice as needed. Return to clinic in 6 weeks for repeat examination. Vito Contreras PA-C documented in this encounterTr[facility]08-22-2024 History of Present illness Narrative* Ketan Kian, PT - 02/28/2024 12:03 PM EDT Images from the original note were not included. Episode Visit Count: 5 Therapist That Will Accept/Oversee The Plan Of Care: Kian Aceves PT Start of Care Date: 01/28/24 Onset Date: 12/29/23 Plan of Care Certification Date: 02/28/24 Next Certification Due Date: 04/03/24 Patient Identified by Name and Date of : Yes REHABILITATION AND SPORTS THERAPY PHYSICAL THERAPY PROGRESS REPORT PLAN OF CARE UPDATE: Assessment: Crystal Thakur demonstrates difficulty with lifting, physical activities, reaching behind back, reaching overhead, use hand with arm at shoulder level, and carrying and improvements in PROM and level of independence with the HEP. She has progressed toward goals. Patient continues to present with impairments in independence in exercise, overall function, range of motion, and strength that interfere with reaching behind back, reaching overhead, lifting . Current prognosis is Good due to: current objective clinical presentation . She will benefit from continued skilled therapy services to meetthe updated goals for this plan of care as noted below. Goals updated 02/28/2024 Goals for Episode of Care: created on 01/28/24 through 05/19/24 [place] in home exercise program. - MET Patient will decrease pain rating by 2 points to meet minimal clinical important difference for numeric pain rating scale. - Progressing Perform closing a car door without pain. - Not met Increase ROM of LUE to equal that of the RUE - Progressing Increased strength of LUE to 5/5 for return to PLOF - unable to assess until future visit Patient Goals: Return to PLOF Patient Goals: Return to PLOF Planned Interventions, Frequency, and Duration: 2x/week, 4 weeks Total Number of Visits Planned: 8 Patient to be seen for Therapeutic exercise (58004), Neuromuscular re-education (62178), Manual therapy (26729), Therapeutic activities (95879), Self-longterm management (91124), Patient/Family/Caregiver Education SUBJECTIVE: The shoulder is sore. Has not been taking motrin because her BP is elevated more. This is why the pain is more today. Patient Goals: Return to PLOF Functional Limitations: reaching behind back, reaching overhead, lifting Prior Level of Function: Independent without limitations Intake Information: Prescription present Pain: Pain Pain Level: 6 Pain Location: Shoulder - Left Post Treatment Pain Post Treatment Pain Location: Shoulder - Left PROMIS Scales 02/28/2024 01/26/2024 11/27/2023 Higher is Better Phys Func - Score 36 (moderate dysfunction) 32 (moderate dysfunction) 32 (moderate dysfunction) Phys Func - Percentile 8 4 4 Self-Eff Symptom - Score 41 (Average) 39 (Low) Self-Eff Symptom - Percentile 18 14 T-scores: mean of general population = 50. 5 points is clinically meaningfully difference Percentiles provide an indication of how the patient's score ranks in relation to the general population. Higher percentile rankings indicate better function/quality of life. 50th percentile is the average of the general population and indicates half of respondents had a worse score. OBJECTIVE MEASURES WITH LEVEL OF FUNCTION: Posture / Alignment Posture: Forward head, Rounded shoulders UE PROM L Shoulder Flex: 135 Degrees L Shoulder External Rotation: 45 Degrees L Elbow Extension: 0 Degrees L Elbow Flexion: 135 Degrees UE and Cervical Strength L UE Strength: Deferred due to post op status TREATMENT: Therapeutic Exercise: 1: All objective measures taken this session 2: Table slides 2 x 10 3: Seated shoulder pulleys scaption x 15 4: *Discussed continuation of current HEP regimen without change. Progressing ROM as tolerated Skilled Intervention: Patient was educated in proper exercise technique and purpose for exercises. Provided written instruction for home exercise program to facilitate proper performance and compliance. Correct performance of therapeutic exercises was facilitated with verbal and visual cuing. Billing Therapeutic Exercise Treatment Minutes: 41 Skilled Treatment Time Minutes (timed and untimed codes): 41 Total Session Time (minutes): 41 Session Start Time : 1134 Session Stop Time : 1215 Kian Aceves PT documented in this encounterTr[facility]08-20-2024 Telephone encounter Note * Telephone Encounter - Anna Bench Molder DianneDuglas - 02/26/2024 1:20 PM EDT Pt had left message late yesterday for a refill, but I see it was sent this morning, but to incorrect pharmacy. I have put it in again to be sent to [facility] in [place] per pt request [facility]08-20-2024 Miscellaneous Notes* Telephone Encounter - Duglas Andrew - 02/26/2024 1:20 PM EDT Pt had left message late yesterday for a refill, but I see it was sent this morning, but to incorrect pharmacy. I have put it in again to be sent to [facility] in [place] per pt request documented in this encounterTrinity [facility]08-19-2024 Telephone encounter Note * Telephone Encounter - Michaela Galo - 02/25/2024 4:31 PM EDT Patient called requesting the following refill. Requested Prescriptions Pending Prescriptions Disp Refills traMADol (ULTRAM) 50 mg tablet 28 tablet 0 Sig: Take 1 tablet by mouth every 6 hours as needed for pain for up to 7 days. Patients last known Refill Date: 02/18/24 Patient Phone numbers: [phone] (home) Request is for script(s) to be escript to pharmacy. Michaela Galo [facility]08-19-2024 Miscellaneous Notes* Telephone Encounter - Michaela Gaol - 02/25/2024 4:31 PM EDT Patient called requesting the following refill. Requested Prescriptions Pending Prescriptions Disp Refills traMADol (ULTRAM) 50 mg tablet 28 tablet 0 Sig: Take 1 tablet by mouth every 6 hours as needed for pain for up to 7 days. Patients last known Refill Date: 02/18/24 Patient Phone numbers: [phone] (home) Request is for script(s) to be escript to pharmacy. Michaela Galo documented in this encounterTrinity Health [facility]08-13-2024 History of Present illness Narrative* Ayla Macdonald, PT - 02/19/2024 11:47 AM EDT Episode Visit Count: 4 Therapist That Will Accept/Oversee The Plan Of Care: Kian Aceves PT Start of Care Date: 01/28/24 Onset Date: 12/29/23 Plan of Care Certification Date: 01/28/24 Next Certification Due Date: 03/03/24 Patient Identified by Name and Date of : Yes REHABILITATION AND SPORTS THERAPY PHYSICAL THERAPY TREATMENT NOTE ASSESSMENT: Crystal Thakur tolerated the session with fatigue and expected muscle soreness. She demonstrated difficulty with neck tightness and improvements in relaxation of L shoulder with PROM. The patient will continue to benefit from ongoing skilled physical therapy to progress toward set goals. PLAN FOR NEXT VISIT: Continue per protocol PROM , pt will be 5 weeks p.o 02/25/24. SUBJECTIVE: Pt reports that her shoulder is feeling much better within the past day or two. Stil hurts, but not as much. Pain: Pain Pain Level: 4 (just sitting; with movement 6-7/10) Pain Location: Shoulder - Left Post Treatment Pain Post Treatment Pain Level: No Change Post Treatment Pain Location: Shoulder - Left OBJECTIVE MEASURES WITH LEVEL OF FUNCTION: L shoulder PROM flexion in supine approx 100 degrees. TREATMENT: Therapeutic Exercise: 1: *Codman's Pendulums x 5 each direction 2: UT stretch x 30 seconds L 3: Levator scap stretch x 30 seconds L Skilled Intervention: Patient was educated in proper exercise technique and purpose for exercises. Reviewed and educated patient on additions/changes for home exercise program as above (*). Skilled judgment was used in selection of appropriate interventions. Correct performance of therapeutic exercises was facilitated with verbal and visual cuing. Manual Therapy: 1: PROM of L shoulder flexion to less than 140 degress, ER to less than 40 degrees with 0 degrees of abduction, and abduction 2x15 each Skilled Intervention: Manual skills to improve joint mobility, ROM, and decrease pain. Utilized anatomy knowledge of the therapist, and assessment of patient's response to intervention. Self-Intermediate Management: 1: Education on importance of still using ice on the shoulder to help with swelling and inflammation and trying to avoid heat. 2: Education on scar tissue massage since incisions are fully closed Skilled Intervention: Skilled judgment in the selection of proper modification for activity of daily living/home management based on clinical presentation, deficits, and needs. Activity progression based on professional judgement. Billing Therapeutic Exercise Treatment Minutes: 10 Manual TherapyTreatment Minutes: 20 Self-Care/Home Management Treatment Minutes: 10 Skilled Treatment Time Minutes (timed and untimed codes): 40 Total Session Time (minutes): 40 Session Start Time : 1145 Session Stop Time : 1225 BOBY Christian PT documented [facility] this encounterTr[facility] Telephone encounter Note * Telephone Encounter - Michaela Galo - 02/18/2024 4:03 PM EDT Patient called requesting the following refill. Requested Prescriptions Pending Prescriptions Disp Refills HYDROcodone-acetaminophen (NORCO) 5-325 mg per tablet 28 tablet 0 Sig: Take one tablet by mouth every 6 hours as needed for postoperative pain Patients last known Refill Date: 02/08/24 Patient Phone numbers: [phone] (home) Request is for script(s) to be escript to pharmacy. Michaela Galo [facility]08-12-2024 Miscellaneous Notes* Telephone Encounter - Michaela Galo - 02/18/2024 4:03 PM EDT Patient called requesting the following refill. Requested Prescriptions Pending Prescriptions Disp Refills HYDROcodone-acetaminophen (NORCO) 5-325 mg per tablet 28 tablet 0 Sig: Take one tablet by mouth every 6 hours as needed for postoperative pain Patients last known Refill Date: 02/08/24 Patient Phone numbers: [phone] (home) Request is for script(s) to be escript to pharmacy. Michaela Galo documented in this encounterTr[facility]08-[facility] History of Present illness Narrative* Kian Aceves PT - 02/12/2024 2:19 PM EDT Episode Visit Count: 3 Therapist That Will Accept/Oversee The Plan Of Care: Kian Aceves PT Start of Care Date: 01/28/24 Onset Date: 12/29/23 Plan of Care Certification Date: 01/28/24 Next Certification Due Date: 03/03/24 Patient Identified by Name and Date of : Yes REHABILITATION AND SPORTS THERAPY PHYSICAL THERAPY TREATMENT NOTE ASSESSMENT: Crystal Thakur tolerated the session with expected muscle soreness. She demonstrated the need for VC's to perform shoulder ER correctly. The patient will continue to benefit from ongoing skilled physical therapy to progress toward set goals. PLAN FOR NEXT VISIT: Continue with PROM/AAROM SUBJECTIVE: Taking 3 pain pills per day now instead of 4. Pt was hanging clothes and sometimes helps with the L arm which has made it sore. getting up is less pain from a laying position Pain: Pain Pain Level: 7 Pain Location: Shoulder - Left OBJECTIVE MEASURES WITH LEVEL OF FUNCTION: Form observed throughout TREATMENT: Therapeutic Exercise: 1: seated elbow curl (no weight) AROM 2 x 10 2: Shoulder IR/ER wand seated 2 x 10 3: Standing wand abduction PROM 2 x 10 4: Standing shoulder ext wand AAROM 2 x 10 5: Seated shoulder pulleys flexion x 20 Skilled Intervention: Patient was educated in proper exercise technique and purpose for exercises. Correct performance of therapeutic exercises was facilitated with verbal and visual cuing. Manual Therapy: 1: Manual PROM shoulder flexion x 10, abduction x 15, and ER/IR x 15 Skilled Intervention: Manual skills to improve joint mobility, ROM, and decrease pain. Utilized anatomy knowledge of the therapist, and assessment of patient's response to intervention. Billing Therapeutic Exercise Treatment Minutes: 35 Manual TherapyTreatment Minutes: 9 Skilled Treatment Time Minutes (timed and untimed codes): 44 Total Session Time (minutes): 44 Session Start Time : 1417 Session Stop Time : 1501 Kian Aceves PT documented in this encounterTr[facility]08-[facility] Telephone encounter Note * Telephone Encounter - Jaskaran Quiroz APRN.[employer] - 02/08/2024 2:50 PM EDT The following approved medication requests have been transmitted electronically. Requested Prescriptions Pending Prescriptions Disp Refills blood sugar diagnostic (TRUE METRIX GLUCOSE TEST STRIP) test strip 150 Strip 11 Sig: Use 4-6 times daily to check blood sugar. Dx:E11.9 insulin:No metFORMIN ER (GLUCOPHAGE XR) 500 mg 24 hr tablet 90 tablet 3 Sig: Take 1 tablet by mouth daily with breakfast. Jaskaran Quiroz APRN.CNP [facility]08-02-2024 Miscellaneous Notes* Telephone Encounter - Jaskaran Quiroz APRN.CNP - 02/08/2024 2:50 PM EDT The following approved medication requests have been transmitted electronically. Requested Prescriptions Pending Prescriptions Disp Refills blood sugar diagnostic (TRUE METRIX GLUCOSE TEST STRIP) test strip 150 Strip 11 Sig: Use 4-6 times daily to check blood sugar. Dx:E11.9 insulin:No metFORMIN ER (GLUCOPHAGE XR) 500 mg 24 hr tablet 90 tablet 3 Sig: Take 1 tablet by mouth daily with breakfast. Jaskaran Quiroz APRN.CNP * Telephone Encounter - Fozia Mathew LPN - 02/08/2024 2:18 PM EDT Prescription Refill Information The patient has been identified by name and date of : Yes Caregiver verified no other encounters exist for this prescription request: Yes Caregiver confirmed with patient/requestor that no other refills are due, in the near future, with this provider at this time: Yes The last office visit in the department: 12/29/2023 Does the patient have a future office visit with this provider/department: Yes Requested Prescriptions Pending Prescriptions Disp Refills blood sugar diagnostic (TRUE METRIX GLUCOSE TEST STRIP) test strip 150 Strip 11 Sig: Use 4-6 times daily to check blood sugar. Dx:E11.9 insulin:No metFORMIN ER (GLUCOPHAGE XR) 500 mg 24 hr tablet 270 tablet 3 Sig: Take 3 tablets by mouth daily with breakfast. Fozia Mathew LPN February 08, 2024 2:18 PM documented in this encounterTr[facility]08-02-2024 Telephone encounter Note * Telephone Encounter - Fozia Mathew LPN - 02/08/2024 2:18 PM EDT Prescription Refill Information The patient has been identified by name and date of : Yes Caregiver verified no other encounters exist for this prescription request: Yes Caregiver confirmed with patient/requestor that no other refills are due, in the near future, with this provider at this time: Yes The last office visit in the department: 12/29/2023 Does the patient have a future office visit with this provider/department: Yes Requested Prescriptions Pending Prescriptions Disp Refills blood sugar diagnostic (TRUE METRIX GLUCOSE TEST STRIP) test strip 150 Strip 11 Sig: Use 4-6 times daily to check blood sugar. Dx:E11.9 insulin:No metFORMIN ER (GLUCOPHAGE XR) 500 mg 24 hr tablet 270 tablet 3 Sig: Take 3 tablets by mouth daily with breakfast. Fozia Mathew LPN February 08, 2024 2:18 PM [facility]08-02-[facility] Telephone encounter Note* Telephone Encounter - Duglas Andrew - 02/08/2024 1:15 PM EDT Patient called requesting the following refill: Hardesty Patients last known Refill Date: 02-01-2024 Patient Phone numbers: [phone] (home) Request is for script(s) to be escript to pharmacy. Duglas Dean [facility]08-02-2024 Miscellaneous Notes* Telephone Encounter - Duglas Andrew - 02/08/2024 1:15 PM EDT Patient called requesting the following refill: Hardesty Patients last known Refill Date: 02-01-2024 Patient Phone numbers: [phone] (home) Request is for script(s) to be escript to pharmacy. Duglas Castillo [employer] documented in this encounterTrinity [facility]07-31-2024 NoteHNO ID: [id number] Author: WILMAR VIVAR MD Service: ? Author Type: Physician Type: Progress Notes Filed: 02/06/2024 12:12 Note Text: PAIN EVALUATION 02/04/2024 0821 02/05/2024 1448 Pain Level: 9 9 Pain Location: Shoulder-Left Shoulder-Left Description: Aching;Radiating;Raw;Stiffness;Tenderness;Tightness;Wound Sharp;Shooting Duration Amount of Time: 48 -- Duration Units: Hours -- Frequency: Continuous Intermittent Intervention/Comfort measure: Medication;Reposition;Relaxation;Cold;Distractions;Exercise;Heat;Massage;Pillow support;Positioning;Splinting;Support surface -- Comments: Pain was starting to be less bad then 2 days ago pain and rom is awful -- Crystal Thakur presents today for: First post-surgery follow up CHANGES SINCE LAST VISIT: Post-surgical recovery uneventful. Pain appropriately controlled with medication. Wearing sling most of the time. No falls or other injuries. Resp 20 Ht 168.9 cm (5' 6.5") Wt 83.9 kg (185 lb) LMP 04/17/2016 (Exact Date) BMI 29.41 kg/m? EXAMINATION FINDINGS: Mild shoulder edema and ecchymosis. Incisions healing without signs of infection. Mild discomfort with gentle passive range of motion within a limited range. Neurovascularly intact in the shoulder, elbow, wrist, and hand. IMAGING: No imaging today MEDICAL DECISION MAKING: Functional Plan: Physical therapy Phase 1 Lifting limit 1 pound or less, avoid sudden movements with the shoulder Sling use encouraged for comfort and to protect the shoulder when out of the house Wean use of pain medication. Ice the shoulder often. Tylenol/NSAID use encouraged. Return in 4 weeks for repeat examination. Information for medical decision making today comes from review of the following data: History, exam, imaging Wilmar Vivar MD Shoulder AND Elbow Surgeon Department of Orthopaedic Surgery [facility] Medical Decision Making: Medical Decision Making Level: 1 - N/[facility]07-31-2024 History of Present illness Narrative* Wilmar Vivar MD - 02/06/2024 12:11 PM EDT Images from the original note were not included. PAIN EVALUATION 02/04/2024 0821 02/05/2024 1448 Pain Level: 9 9 Pain Location: Shoulder-Left Shoulder-Left Description: Aching;Radiating;Raw;Stiffness;Tenderness;Tightness;Wound Sharp;Shooting Duration Amount of Time: 48 -- Duration Units: Hours -- Frequency: Continuous Intermittent Intervention/Comfort measure: Medication;Reposition;Relaxation;Cold;Distractions;Exercise;Heat;Massage;Pillow support;Positioning;Splinting;Support surface -- Comments: Pain was starting to be less bad then 2 days ago pain and rom is awful -- Crystal Thakur presents today for: First post-surgery follow up CHANGES SINCE LAST VISIT: Post-surgical recovery uneventful. Pain appropriately controlled with medication. Wearing sling most of the time. No falls or other injuries. Resp 20 Ht 168.9 cm (5' 6.5") Wt 83.9 kg (185 lb) LMP 04/17/2016 (Exact Date) BMI 29.41 kg/m EXAMINATION FINDINGS: Mild shoulder edema and ecchymosis. Incisions healing without signs of infection. Mild discomfort with gentle passive range of motion within a limited range. Neurovascularly intact in the shoulder, elbow, wrist, and hand. IMAGING: No imaging today MEDICAL DECISION MAKING: Functional Plan: Physical therapy Phase 1 Lifting limit 1 pound or less, avoid sudden movements with the shoulder Sling use encouraged for comfort and to protect the shoulder when out of the house Wean use of pain medication. Ice the shoulder often. Tylenol/NSAID use encouraged. Return in 4 weeks for repeat examination. Information for medical decision making today comes from review of the following data: History, exam, imaging Wilmar Vivar MD Shoulder & Elbow Surgeon Department of Orthopaedic Surgery [facility] Medical Decision Making: Medical Decision Making Level: 1 - N/A documented in this encounterTrinity [facility]07-30-20[facility] History of Present illness Narrative* Kian Aceves, PT - 02/05/2024 6:57 PM EDT Program_ID:[id number] Access Code: [email or web address] URL: [email or web address] Date: 02-05-2024 Prepared By: Kian Aceves Program Notes Exercises - Seated Shoulder Flexion AAROM with Ernestina Behind - 1 x daily - 7 x weekly - 4 sets - 10 reps - Seated Shoulder Flexion Towel Slide at Table Top - 1 x daily - 7 x weekly - 4 sets - 10 reps - Seated Shoulder External Rotation AAROM with Dowel - 1 x daily - 7 x weekly - 4 sets - 10 reps - Elbow Flexion PROM - 1 x daily - 7 x weekly - 4 sets - 10 reps - Standing Shoulder Extension ROM with Dowel - 1 x daily - 7 x weekly - 4 sets - 10 reps * Kian Aceves, PT - 02/05/2024 6:19 PM EDT Episode Visit Count: 2 Therapist That Will Accept/Oversee The Plan Of Care: Kian Aceves PT Start of Care Date: 01/28/24 Onset Date: 12/29/23 Plan of Care Certification Date: 01/28/24 Next Certification Due Date: 03/03/24 Patient Identified by Name and Date of : Yes REHABILITATION AND SPORTS THERAPY PHYSICAL THERAPY TREATMENT NOTE ASSESSMENT: Crystal Thakur tolerated the session with expected muscle soreness. She demonstrated improvement in L shoulder PROM. The patient will continue to benefit from ongoing skilled physical therapy to progress toward set goals. PLAN FOR NEXT VISIT: Continue with rehab following surgeon's protocol SUBJECTIVE: Has been getting more pain in the L shoulder. Told the doctor and he was not too concerned that something was wrong. Pain: Pain Pain Location: Shoulder - Left OBJECTIVE MEASURES WITH LEVEL OF FUNCTION: UE PROM L Shoulder Flex: 90 Degrees (seated using pulleys) TREATMENT: Therapeutic Exercise: 1: Seated shoulder ernestina flexion x 4 min 2: Seated table slides 3 x 10 3: Standing wand PROM extensions 2 x 10 4: Seated shoulder ER/IR with wand PROM 2 x 10 5: Seated bicep curl AAROM with wand 2 x 10 6: Gripping towel x 20 Skilled Intervention: Patient was educated in proper exercise technique and purpose for exercises. Provided written instruction for home exercise program to facilitate proper performance and compliance. Correct performance of therapeutic exercises was facilitated with verbal and visual cuing. Billing Therapeutic Exercise Treatment Minutes: 43 Skilled Treatment Time Minutes (timed and untimed codes): 43 Total Session Time (minutes): 43 Session Start Time : 1818 Session Stop Time : 1901 Kian Aceves PT documented in this encounterTrinity [facility]07-26-2024 Telephone encounter Note * Telephone Encounter - Duglas Andrew - 02/01/2024 12:57 PM EDT Patient called requesting the following refill: Hardesty Patients last known Refill Date: 01-25-2024 Patient Phone numbers: [phone] (home) Request is for script(s) to be escript to pharmacy. Duglas Dean [facility]07-26-2024 Miscellaneous Notes* Telephone Encounter - Duglas Andrew - 02/01/2024 12:57 PM EDT Patient called requesting the following refill: Hardesty Patients last known Refill Date: 01-25-2024 Patient Phone numbers: [phone] (home) Request is for script(s) to be escript to pharmacy. Duglas Dean documented in this encounterTrinity [facility]07-25-2024 Telephone encounter Note * Telephone Encounter - Xochilt Crum - 01/31/2024 10:53 AM EDT [facility] manufacturer's service representative contacted office to provide authorization# [id number] for physical therapy followup order. [facility] notifying patient of authorization and to contact office to be rescheduled 1x per week for 4 weeks. [facility]07-25-2024 Miscellaneous Notes* Telephone Encounter - Xochilt Crum - 01/31/2024 10:53 AM EDT [facility] manufacturer's service representative contacted office to provide authorization# [id number] for physical therapy followup order. [facility] notifying patient of authorization and to contact office to be rescheduled 1x per week for 4 weeks. documented in this encounterTrinity [facility]07-22-2024 History of Present illness Narrative* Kian Aceves PT - 01/28/2024 12:11 PM EDT Program_ID:[id number] Access Code: [email or web address] URL: [email or web address] Date: 01-28-2024 Prepared By: Kian Aceves Program Notes Exercises - Seated Shoulder Flexion AAROM with Ernestina Behind - 1 x daily - 7 x weekly - 4 sets - 10 reps - Seated Shoulder Flexion Towel Slide at Table Top - 1 x daily - 7 x weekly - 4 sets - 10 reps - Seated Shoulder External Rotation AAROM with Dowel - 1 x daily - 7 x weekly - 4 sets - 10 reps - Elbow Flexion PROM - 1 x daily - 7 x weekly - 4 sets - 10 reps * Kian Aceves PT - 01/28/2024 11:32 AM EDT Images from the original note were not included. Episode Visit Count: 1 Therapist That Will Accept/Oversee The Plan Of Care: Kian Aceves PT Start of Care Date: 01/28/24 Onset Date: 12/29/23 Plan of Care Certification Date: 01/28/24 Next Certification Due Date: 03/03/24 Patient Identified by Name and Date of : Yes REHABILITATION AND SPORTS THERAPY PHYSICAL THERAPY EVALUATION PLAN OF CARE: Assessment: Crystal Thakur presents with diagnosis of s/p L supraspinatus repair and biceps tenodesis that interferes with reaching behind back, reaching overhead, lifting . She presents with impairments in ADL's, independence in exercise, overall function, range of motion, and strength. PROMIS (Patient- Reported Outcomes Measurement Information System) scores were reviewed and identified as a rehabilitation concern. Prognosis for therapy is Good due to: current objective clinical presentation. She will benefit from skilled therapy services to meet the goals established for this plan of care as noted below. Goals for Episode of Care: created on 01/28/24 through 05/19/24 [place] in home exercise program. Patient will decrease pain rating by 2 points to meet minimal clinical important difference for numeric pain rating scale. Perform closing a car door without pain. Increase ROM of LUE to equal that of the RUE Increased strength of LUE to 5/5 for return to PLOF Patient Goals: Return to PLOF Planned Interventions, Frequency, and Duration: Current Frequency: 1x/week Duration: 4 weeks Total Number of Visits Planned: 4 Planned Treatment Interventions: Therapeutic exercise (39479), Neuromuscular re- education (31638), Manual therapy (25325), Therapeutic activities (79760), Self- longterm management (68157), Patient/Family/Caregiver Education PLAN FOR NEXT VISIT: Patient demonstrates good understanding of plan of care and treatment. The above goals and plan of care were discussed and agreed upon by patient/family. SUBJECTIVE: Had a RCR and a biceps tenodesis. Bruised from the surgery. Took pain medicine at 8 am. Patient Goals: Return to PLOF Functional Limitations: reaching behind back, reaching overhead, lifting Prior Level of Function: Independent without limitations Intake Information: Prescription present Previous Treatment: Surgery Pain: Pain Pain Level: 6 Pain Location: Shoulder - Left PROMIS Scales 01/26/2024 11/27/2023 10/24/2023 Higher is Better Phys Func - Score 32 (moderate dysfunction) 32 (moderate dysfunction) 31 (moderate dysfunction) Phys Func - Percentile 4 4 3 Self-Eff Symptom - Score 39 (Low) Self-Eff Symptom - Percentile 14 T-scores: mean of general population = 50. 5 points is clinically meaningfully difference Percentiles provide an indication of how the patient's score ranks in relation to the general population. Higher percentile rankings indicate better function/quality of life. 50th percentile is the average of the general population and indicates half of respondents had a worse score. OBJECTIVE MEASURES WITH LEVEL OF FUNCTION: Posture / Alignment Posture: Forward head, Rounded shoulders Cervical Spine ROM Cervical ROM : (WFL) UE PROM L Shoulder Flex: 60 Degrees (seated) L Elbow Extension: 0 Degrees L Elbow Flexion: 135 Degrees UE and Cervical Strength R UE Strength: Grossly 5/5 L UE Strength: Deferred due to post-op status Education: Education Learning Preferences: Demonstration, Explanation, Performance, Printed Materials Barriers: None Learning/educational needs: Home exercise program, Plan of Care, Changes in Plan of Care Education Provided: Yes, see treatment interventions for education provided Education Provided To: Patient Education Mode/Type: Demonstration, Explanation/Discussion, Literature/Printed Materials, Performance Response to Education/Teach Back: States/Identifies, Return Demonstration TREATMENT: PT Treatment Interventions: Therapeutic Exercise Evaluation Therapeutic Exercise: 1: Discussed exam findings, purpose of the HEP and the HEP handout was provided to the pt. HEP discussed in detail with how to safely and properly perform each therapeutic exercise. 2: Seated AAROM bicep curl x 10 3: Supine wand flexion x 2 (stopped due to L shoulder pain) 4: Seated table slides into flexion x 10 5: Supine wand ER PROM x 10 6: Discussed use of pulleys at home (Pt reports that she has a ernestina system at home) Skilled Intervention: Patient was educated in proper exercise technique and purpose for exercises. Skilled judgment was used in selection of appropriate interventions. Provided written instruction for home exercise program to facilitate proper performance and compliance. Correct performance of therapeutic exercises was facilitated with verbal and visual cuing. Billing * Evaluation Low Complexity: 1 Unit Therapeutic Exercise Treatment Minutes: 24 Skilled Treatment Time Minutes (timed and untimed codes): 45 Total Session Time (minutes): 45 Session Start Time : 1132 Session Stop Time : 1217 Kian Aceves PT documented in this encounterTrinity [facility]07-[facility]24 Telephone encounter Note * Telephone Encounter - Michaela Galo - 01/25/2024 3:03 PM EDT Patient called requesting the following refill. Requested Prescriptions Pending Prescriptions Disp Refills HYDROcodone-acetaminophen (NORCO) 5-325 mg per tablet 28 tablet 0 Sig: Take 1-2 tablets by mouth every 4 hours as needed for pain for up to 3 days. Patients last known Refill Date: 01/21/24 Patient Phone numbers: [phone] (home) Request is for script(s) to be escript to pharmacy. Michaela Galo [facility]07-19-2024 Miscellaneous Notes* Telephone Encounter - Michaela Galo - 01/25/2024 3:03 PM EDT Patient called requesting the following refill. Requested Prescriptions Pending Prescriptions Disp Refills HYDROcodone-acetaminophen (NORCO) 5-325 mg per tablet 28 tablet 0 Sig: Take 1-2 tablets by mouth every 4 hours as needed for pain for up to 3 days. Patients last known Refill Date: 01/21/24 Patient Phone numbers: [phone] (home) Request is for script(s) to be escript to pharmacy. Michaela Galo documented in this encounterTrinity [facility]07-15-2024 NoteHNO ID: [id number] Author: CORIN MARKS RN Service: ? Author Type: Registered Nurse Type: Nursing Progress Note Filed: 01/21/2024 14:04 Note Text: Pt dressed with assistance. Pt d/cd from PACU in stable condition.[facility]07-15-2024 NoteHNO ID: [id number] Author: JUAN DIEGO MOORE APRN.TAB MACHINE OPERATOR Service: Anesthesiology Author Type: Nurse Back Tender Insulation Board Type: Anesthesia Procedure Notes Filed: 01/21/2024 11:31 Note Text: ANESTHESIOLOGY PROCEDURE NOTE Airway General Information Procedure Start Time/Medication Administration: 01/21/2024 11:19 AM Procedure End Time: 01/21/2024 11:31 AM Patient location during procedure: OR Timeout Performed Pre-procedure: timeout performed Consent Obtained: Yes Patient identity confirmed: arm band and patient Staffing TAB MACHINE OPERATOR: Juan Diego Moore APRN.TAB MACHINE OPERATOR Performed by: TAB MACHINE OPERATOR Indications and Patient Condition Indications for airway management: anesthesia Preoxygenated: yes anesthesia circuit Patient position: sniffing Method: asleep Cricoid Pressure: No Manual In-Line Stabilization: No Difficult Mask: No Final Airway Details Final airway type: endotracheal airway Final Endotracheal Airway: ETT Cuffed: yes Successful intubation technique: direct laryngoscopy Endotracheal tube insertion site: oral Blade: Dexter Blade size: #4 ETT size (mm): 7.0 Measured from: lips Measurement (cm): 22 Placement verified by: chest auscultation and capnometry Cormack-Lehane Classification: grade I - full view of glottis Number of attempts at approach: 1 Failed airway: no Unrecognized esophageal intubation: no Airway not difficult SIGNATURE: Juan Diego Moore APRN.CRNA PATIENT NAME: Crystal Thakur DATE: January 21, 2024 TIME: 11:29 AM [facility]: [id number] NoteHNO ID: [id number] Author: MAURICE CHRISTIAN MD Service: Anesthesiology Author Type: Anesthesiologist Type: Anesthesia Procedure Notes Filed: 01/21/2024 10:20 Note Text: ANESTHESIOLOGY PROCEDURE NOTE Peripheral Nerve Block General Information Procedure Start Time/Medication Administration: 01/21/2024 10:06 AM Procedure End time: 01/21/2024 10:18 AM Patient location during procedure: pre-op Patient identity confirmed: arm band and patient Reason for block: post-op pain management/at surgeon's request Staffing Anesthesiologist: Maurice Christian MD Resident: Tyree Serrato MD Performed by: anesthesiologist and resident Preparation Sterility Preparation: hand hygiene performed prior to procedure, surgical cap used, mask used, skin prep agent completely dried prior to procedure Site Prep: Chloraprep Pre-Procedure Neuro Exam Location: LUE Sensory: intact Motor: intact Procedure Details Patient Position: supine Monitoring: Pulse OX, EKG and NIBP Block Type Upper Extremity: brachial plexus Approach: interscalene Laterality: left Injection Technique: single-shot Ultrasound Guided: Yes Image in Chart: no Local Infiltration: Yes Needle Needle Type: echogenic Needle Gauge: 21 G Needle Length: 5 cm Needle Localization: ultrasound Assessment Injection assessment: negative aspiration, local visualized surrounding nerve on ultrasound and no paresthesia on injection Paresthesia: none Medications Administered ropivacaine (PF) 5 mg/mL (0.5 %) injection (NAROPIN) - peripheral nerve block 20 mL - 01/21/2024 10:06:00 AM dexamethasone sodium phosphate injection (DECADRON) - peripheral nerve block 4 mg - 01/21/2024 10:06:00 AM midazolam (PF) injection (VERSED) - INTRAVENOUS 2 mg - 01/21/2024 10:06:00 AM Comments Risks, benefits, and alternatives to block discussed prior to start of block procedure. Patient agreed to proceed. Patient is communicating. Procedure is well tolerated. Extended block is expected up to 24 hours post-block. Patient can be discharged to floor/home with the block intact. Standard ASA monitors were used. Vital signs were stable throughout. SIGNATURE: Maurice Christian MD PATIENT NAME: Crystal Thakur DATE: January 21, 2024 TIME: 10:19 AM [facility]: [id number] History and physical note* Marah Pinzon APRN.S[employer]LL[employer]OWER - 01/17/2024 1:00 PM EDT Images from the original note were not included. [facility] HISTORY AND PHYSICAL EXAMINATION SERVICE DATE: 01/17/2024 SERVICE TIME: 1:00 PM PRIMARY CARE PHYSICIAN: Gabbie Grady MD Assessment Patient has the following medical conditions which may affect monique-operative course: Pre-op examination see note for medical conditions which may affect monique-operative course that were addressed at today's visit. Bicipital tendinitis, left Surgery scheduled 01/21/24. HYPERTENSION Nadolol and HCTZ- instructed to take morning of surgery. Amlodipine- instructed to continue as normal, as patient takes in the evenings. Lisinopril- instructed to hold morning of surgery. Hyperlipidemia No medication. Statin intolerant. Diet and lifestyle modification. Aortic atherosclerosis (HCC) CT lung 11/07/22: Other findings: The central airways are patent without endobronchial lesion. No focal consolidation. No pleural effusion. 9 mm calcified nodule in the isthmus of the thyroid gland. No thoracic lymphadenopathy. Mild atherosclerotic calcifications of the thoracic aorta. The thoracic aorta and main pulmonary artery are normal in caliber. The cardiac chambers are normal in size. Minimal coronary artery calcifications present. No pericardial effusion. Mild degenerative changes of the thoracic spine. The soft tissues of the chest wall are unremarkable. There is cholelithiasis. The imaged upper abdomen discloses no acute abnormality. Fibromuscular dysplasia (HCC) Stable. Diagnosed in 2016. In renal and carotid arteries. Aspirin- instructed to follow prescribing physician and surgeon's pre-op instructions. Has not seen [facility] clinic within the last year- managed by PCP. Abdominal US 11/24/21: ESOPHAGEAL REFLUX Omeprazole. Instructed to take morning of surgery. Controlled type 2 diabetes mellitus without complication, without long-term current use of insulin (HCC) Metformin- instructed to hold morning of surgery. Hemoglobin A1C (%) Date Value 12/24/2023 6.3 03/28/2021 6.9 Giant cell arteritis (HCC) Diagnosed in 2020. Was on high dose Prednisone for 9 months- has since been discontinued. Tobacco abuse, in remission Former cigarette smoker. Quit 2013. 32 pack years. Jung Activity Status Index: METS: Climb a flight of stairs or walk up a hill (5.50 METs) DASI Score: 5.5 Patient denies any chest pain or undue shortness of breath with the above physical activity. ARISCAT Score: Age: 51-80 Preoperative SpO2: >=96% Respiratory infection in the last month: No Preoperative anemia: Yes Surgical incision: peripheral Duration of surgery: <2 hrs Emergency procedure: No ARISCAT Score: 14 ANESTHESIA FINDINGS: Intubation History: No history of difficult intubation. No abnormal airway history Significant Anesthesia Considerations: none Airway History: No history of difficult airway No abnormal airway history I - PHYSICAL EVALUATION AIRWAY Patient intubated: No. DENTAL Dentures, upper: complete. Dentures, lower: complete. II - ANESTHESIA PLAN Anesthetic Plan: general Beta Narinder Monitoring Plan Post Procedure Analgesic Plan Prepared for Surgery: CONSULTS: Patient does not require consults for optimization at this time Planned Anesthetic: general The Following Tests/Procedures Have Been Initiated: No orders entered in Social IQ (Social Influence Quotient) per surgeon. REASON FOR VISIT: Crystal Thakur is a 63 year old female who is scheduled for Procedure(s) with comments: ARTHROSCOPY SHOULDER BICEPS TENODESIS (Left) - INTERSCALENE BLOCK at the request of Dr. Wilmar Vivar for routine H&P. My final recommendation will be communicated back to the requesting physician by way of shared medical record or letter. Subjective The patient has the following: ACTIVE PROBLEM LIST HYPERTENSION Hyperlipidemia Esophageal Reflux Fibromyalgia Osteoarthrosis, Unspecified Whether Generalized Or Localized, Lower Leg Obesity, Unspecified Edema Vitamin D Deficiency Benign Neoplasm of Colon Cervicalgia Dizziness and Giddiness Chondromalacia of Patella Pain in Joint, Hand Cmc Arthritis, Thumb, Degenerative Cervical High Risk Human Papillomavirus (Hpv) Dna Test Positive Druj (Distal Radioulnar Joint) Arthrosis, Primary Controlled Type 2 Diabetes Mellitus Without Complication, Without Long-Term Current Use of Insulin (Hcc) Fibromuscular Dysplasia (Hcc) Heart Palpitations Status Post Total Right Knee Replacement Using Cement Rectocele Complete Uterine Prolapse Obesity, Class I, Bmi 30-34.9 Aortic Atherosclerosis (Hcc) Statin Intolerance Tobacco Abuse, in Remission Encounter for Current Fdc Use of Antiplatelet Drug Family History of Intracranial Aneurysms S/P Right Rotator Cuff Repair Impingement Syndrome of Right Shoulder Impingement Syndrome of Left Shoulder Biceps Tendonosis of Right Shoulder Left Renal Stone Acute Midline Low Back Pain Without Sciatica Pre-Op Examination Bicipital Tendinitis, Left Giant Cell Arteritis (Hcc) COVID-19 Immunization Status Overdue - Covid-19 Vaccine () Overdue since 03/09/2023 07/06/2021 Imm Admin: COVID-19 original vaccine, age 12+ yr, monovalent (PFIZER- BIONTECH - PURPLE TOP) 03/29/2021 Imm Admin: COVID-19 original vaccine, age 12+ yr, monovalent (PFIZER- BIONTECH - PURPLE TOP) 12/15/2020 Postponed until 12/15/2021 by Cande Zacarias) (Declined at this time) Only the first 3 history entries have been loaded, but more history exists. CHIEF COMPLAINT: The reason for this visit is to perform a comprehensive review of the patients past medical history, assess their current health status and obtain any additional testing required based on anesthesia guidelines. To assess and identify potential anesthesia problems, particularly those that may suggest potential complications or contraindications to the planned procedure. HPI: Patient is a 63 year old female who presents for presurgical testing. Patient has a history ofleft shoulder pain. She reports the pain first started about 4 years ago. She denies any injury ortrauma to shoulder. She has attempted physical therapy, laser therapy, and injections with minimal pain relief. She reports difficulty with lifting her arm above her head. Pain is 8/10 at PAT visit. Denies any numbness or tingling. Denies any recent fever or chills. Patient denies any other problems or concerns at this time. Risks and benefits of the procedure discussed by Surgeon and patient agreed to proceed with planned procedure. REVIEW OF SYSTEMS: General: Positive for: malaise. Negative for: weight loss >10% of BW in last 6 months and fever. Neurological: Negative for: seizures and strokes. Respiratory: Negative for: asthma, COPD, pneumonia within 6 weeks, URI < 2 weeks and obstructive sleep apnea. Cardiovascular: Positive for: CAD, hyperlipidemia and hypertension Negative for: atrial fibrillation, chest pain, CHF and DVT/PE. GI: Positive for: GERD Negative for: liver disease. : Negative for: frequent urination, hematuria and urgency. HYDRAULIC TESTER: Negative for abnormal vaginal bleeding, abnormal vaginal discharge. Endocrine: Positive for: diabetes mellitus. Patient's diabetes mellitus is controlled by oral agents. Negative for: hyperthyroidism. Hematology: No history of bleeding or clotting disorder. Patient is not taking anti-coagulation or platelet medications. No history of hematological symptoms or problems. Oncology: No history of CA metastasis, chemo within 30 days, or radiotherapy within 90 days. No history of oncological symptoms or problems. Psych: No history of psychiatric symptoms or problems. Musculoskeletal: See HPI. Positive for: joint pain. Skin: Negative for lesions, rash and itching. 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 Abnormal Pap smear of cervix 09/11/2013 [facility], Seeing HYDRAULIC TESTER Allergic rhinitis Anemia, unspecified Due to heavy menstrual cycles Benign neoplasm of colon 08/2009 POLYPS Cervical high risk human papillomavirus (HPV) DNA test positive 09/18/2013 Cystocele, midline Diabetes mellitus type II, controlled (HCC) metformin Diverticulosis Esophageal reflux 1999 RESOLVED due to diet change Esophagitis, unspecified Essential hypertension, benign 1998 Fatty liver Fibromuscular dysplasia (HCC) renal and carotid arteries; follows with [facility] clinic Fibromyalgia Giant cell arteritis (HCC) 2020 Heart palpitations nadalol helps Incomplete uterovaginal prolapse Obesity, unspecified Osteoarthrosis, unspecified whether generalized or localized, lower leg bilateral knees > hips Other and unspecified hyperlipidemia 1998 has been on meds in past, had tolerated Lipitor but afraid of statins Phlebitis and thrombophlebitis of superficial vessels of lower extremities 3rd child 1985, right leg Renal stones Varicose veins of other sites 2006 h/o varicose veins onset with first age of 20, had total of 4 pregnancies last was twins.First Vein stripping right leg surgery was 1992 at [facility], Second surgery 1993 to left leg (h/o hernia repair reason for one leg at a time). Here for possible laser surgery to remove lumpy and rope type veins. PAST SURGICAL HISTORY Procedure Laterality Date COLSC FLX W/RMVL OF TUMOR POLYP LESION SNARE TQ 01/14/2010 DILATION & CURETTAGE DX&/THER NONOBSTETRIC 2006 Dilation & curettage-HYPERPLASIA, likely will have hysterectomy within next year EGD TRANSORAL BIOPSY SINGLE/MULTIPLE 01/14/2010 EXC CYST/ABERRANT BREAST TISSUE OPEN 1/> LESION 01/03/2010 Left breast, benign FASCIECTOMY PLANTAR FASCIA PARTIAL SPX 1992 FOOT Left 1989' plantar fasciitis release HYSTERECTOMY HX 05/03/2020 [facility], uterosacral vaginal vault suspension, A/P repair IUD INSERTION (HYDRAULIC TESTER DEPT)_*FL 05/14/2008 Mirena, removed JOINT REPLACEMENT HX total right knee LIG/TRNSXJ FLP TUBE ABDL/VAG APPR UNI/BI 1987 Tubal ligation NOVASURE 01/2010 PAST SURGICAL HISTORY OF 1983 EXPLORATORY LAP PAST SURGICAL HISTORY OF 1992 BILAT LEG-VEIN STRIPPING PAST SURGICAL HISTORY OF 10/2007, 12/2007 Bilat leg-vein stripping PAST SURGICAL HISTORY OF Right 01/24/2021 Right bicep repair PAST SURGICAL HISTORY OF Right 2017 TKA REMOVE INTRAUTERINE DEVICE 2011 Expelled 3 weeks after insertion REPAIR INGUINAL HERNIA Bilateral 08/30/2022 laparoscopic repair with mesh ROTATOR CUFF REPAIR Right bicept reattachment RPR UMBILICAL HRNA 5 YRS/> REDUCIBLE 1993, 1989, 2007 Repaired 3 Times VAGINOSCOPY 09/25/2013 LSIL FAMILY HISTORY Problem Relation Age of Onset Lipids Mother High Cholesterol Hypertension Mother Osteoporosis Mother Arthritis Mother Cataract Mother resolved with surgery other (Other) Mother Meniere's Skin Cancer Mother Psychiatry Father depression, committed suicide age 49 Osteoporosis Maternal Grandmother Thyroid Maternal Grandmother Cancer Maternal Grandfather leukemia Heart Maternal Grandfather Alzheimer's Disease Paternal Grandmother Thyroid Daughter Strabismus Daughter other (turners) Daughter other (aortic stenosis) Daughter Thyroid Daughter other (celiac disease) Daughter other (Fibromyalgia) Daughter other (MVP) Daughter Thyroid Daughter other (MVP) Daughter Hypertension Son other (hypogonadism) Son other (osteoarthritis) Son other (IBS) Son Diabetes Paternal Aunt Anesthesia Problems No Family History Social History Tobacco Use Smoking status: Former Packs/day: 1.00 Years: 32.00 Additional pack years: 0.00 Total pack years: 32.00 Types: Cigarettes Quit date: 03/14/2014 Years since quittin.8 Smokeless tobacco: Never Vaping Use Vaping Use: Never used Substance Use Topics Alcohol use: Yes Comment: rarely Drug use: Yes Comment: CBD gummies and "cigarette" couple times a week Prior to Admission medications as of 01/17/24 1313 Medication Sig Last Dose Taking Lactobacillus acidoph-pectin 75 million cell -100 mg cap Take 1 capsule by mouth once daily. Yes VITAMIN B COMPLEX ORAL Take by mouth once daily. Yes methocarbamol (ROBAXIN) 500 mg tablet Take 2 tablets by mouth three times a day. As needed for painYes omeprazole (PRILOSEC) 20 mg capsule Take 1 capsule by mouth daily before breakfast. 1/2 hr before meal. Yes hydroCHLOROthiazide 25 mg tablet Take 1 tablet by mouth once daily. Yes lisinopril (ZESTRIL) 20 mg tablet Take 2 tablets by mouth once daily. Yes coenzyme Q10 (CO Q-10) 100 mg cap capsule Take 2 capsules by mouth once daily. Yes nadolol (CORGARD) 40 mg tablet Take 1 tablet by mouth two times a day. Yes amLODIPine (NORVASC) 10 mg tablet Take 1 tablet by mouth once daily. Yes VITAMIN K2 ORAL Take 100 mcg by mouth once daily. Yes ondansetron (ZOFRAN) 4 mg tablet Take 1 tablet by mouth every 8 hours as needed. Yes nortriptyline (PAMELOR) 25 mg capsule Take 1 capsule by mouth daily at bedtime. Yes Milk Thistle 150 mg cap Take 1 capsule by mouth once daily. Yes metFORMIN ER (GLUCOPHAGE XR) 500 mg 24 hr tablet Take 3 tablets by mouth daily with breakfast. Patient taking differently: Take 500 mg by mouth daily with breakfast. Yes ibuprofen (MOTRIN) 800 mg tablet Take 1 tablet by mouth every 6 hours as needed for pain. Yes albuterol HFA (PROVENTIL HFA, VENTOLIN HFA) 90 mcg/actuation inhaler Inhale 2 Puffs as instructed every 4 hours as needed. Yes nystatin (MYCOSTATIN) powder Apply 1 application to affected area as needed. Yes benzonatate (TESSALON PERLE) 100 mg capsule Take 1 capsule by mouth three times daily as needed forcough. Yes calcium carbonate/vitamin D3 (CALCIUM WITH VITAMIN D ORAL) Take 1 tablet by mouth twice daily. 600 mg calcium with 1000mg vitamin D3 Yes aspirin, enteric coated (ASPIR-LOW) 81 mg EC tablet Take 1 tablet by mouth once daily. Yes ursodiol (ACTIGALL) 300 mg capsule Take 300 mg by mouth twice daily. Yes loratadine (CLARITIN) 10 mg ORAL tablet Take 1 tablet by mouth once daily. Patient taking differently: Take 10 mg by mouth as needed. Yes FREESTYLE HUGH 14 DAY SENSOR kit apply NEW SENSOR EVERY 14 DAYS TO UPPER ARM blood sugar diagnostic (TRUE METRIX GLUCOSE TEST STRIP) test strip Use 4-6 times daily to check blood sugar. Dx:E11.9 insulin:No lancets (FREESTYLE LANCETS) 28 gauge misc Test blood sugar(s) one times daily. Dx: Type 2 DM - Controlled E11.9 Insulin: No Medication Comments documented by Cande Zacarias MA on 03/29/2021 at 1325. Taking CBD oral gummies and patch. Gummies 10 mg, taking up to 100 mg daily. CBD patch 40 mg q 4 days. Takes Melatonin OTC ALLERGIES Allergen Reactions Cymbalta [Duloxetin* Other: See Comments Intolerance, elevated BP, pulse Keflex [Cephalexin] GI Upset Bloating and tears up stomach Monosodium Glutamat* Other: See Comments Severe headache Oxycodone Other: See Comments Heart palpitations Rabbit Dander Shortness of Breath Huan's Wort Other: See Comments Elevated BP Atorvastatin Myalgia Muscle Aches Crestor [Rosuvastat* Myalgia Gabapentin Other: See Comments Depression, suicidal thoughts Niacin Intolerance Facial numbness Niacinamide Other: See Comments Facial Numbness Cats Shortness of Breath Aspartame Other: See Comments Severe headache Doxycycline GI Upset Erythromycin GI Upset Glutamic Acid Unknown Patient is not familiar with this product Latex Itching Redness Sucralose Unknown Zithromax [Azithrom* GI Upset GI Objective PHYSICAL EXAM: General: alert and oriented and healthy appearance. Pertinent negatives noted - not distressed. Skin: normal color, no rash or lesions. HEENT: EOM intact and pupils equal round. Cardiovascular: regular rate and rhythm, normal S1 and S2, no rub, murmurs, or gallop. Respiratory: normal breath sounds, no wheezes or crackles. No chest wall deformity or tenderness. Abdomen: bowel sounds present. Extremities: Positive for joint tenderness. Neurological: normal cognition and motor skills. Positive for limb weakness. Limb weakness located left UE. PAIN ASSESSMENT: Pain Pain Level: 8 Frequency: Continuous VITALS: BP 134/89 Pulse 69 Temp 98.1 Resp 18 Ht 5' 6.5" (1.69m) Wt 186 lb 6.4 oz (84.6kg) SpO2 97% LMP 04/17/2016 BMI 29.64 kg/(m^2). Diagnostic tests reviewed for today's visit: Lab Value Units Date High Low HB No results within date range. HCT No results within date range. WBC No results within date range. PLT No results within date range. NA 137 mmol/L 12/24/2023 144 136 K 4.1 mmol/L 12/24/2023 5.1 3.7 GLUC 109 mg/dL 12/24/2023 99 74 BUN 21 mg/dL 12/24/2023 21 7 CREAT 0.62 mg/dL 12/24/2023 0.96 0.58 PTSEC No results within date range. INR No results within date range. APTT No results within date range. ALT 12 U/L 12/24/2023 38 7 AST 13 U/L 12/24/2023 35 13 TBILI 0.4 mg/dL 12/24/2023 1.3 0.2 TSH No results within date range. Lab Value Units Date High Low HCGQT No results within date range. UHCG No results within date range. HCG, BODY* No results within date range. Lab Value Units Date High Low ABORHD No results within date range. ABSCREEN No results within date range. Hemoglobin A1C (%) Date Value 12/24/2023 6.3 06/20/2023 6.5 12/18/2022 6.7 06/20/2022 6.8 12/15/2021 6.5 03/28/2021 6.9 12/13/2020 7.1 06/10/2020 6.9 12/09/2019 6.2 02/24/2019 6.7 No results found for this or any previous visit (from the past 8760 hour(s)). No results found for this or any previous visit (from the past 19389 hour(s)). Implantable Devices: right TKA, abdominal mesh Assessment/Plan Bicipital tendinitis, left [M75.22] PLAN Planned Procedure: Procedure(s) with comments: ARTHROSCOPY SHOULDER BICEPS TENODESIS (Left) - INTERSCALENE BLOCK I spent a total of 50 minutes on the date of the service which included preparing to see the patient, [id number] patient care, completing clinical documentation, obtaining and/or reviewing separately obtained history, performing a medically appropriate examination, and counseling and educating the patient/family/caregiver. Instructions Given to Patient: Instructions located in the after visit summary. Patient given verbal and written preop instructions and voices comprehension and compliance. SIGNATURE: Marah Pinzon APRN.CNP PATIENT NAME: Crystal Thakur DATE: January 17, 2024 TIME: 1:00 PM PAGER/CONTACT #: [facility]07-11-2024 History and physical note* Marah Pinzon APRN.CNP - 01/17/2024 1:00 PM EDT Images from the original note were not included. [facility] HISTORY AND PHYSICAL EXAMINATION SERVICE DATE: 01/17/2024 SERVICE TIME: 1:00 PM PRIMARY CARE PHYSICIAN: Gabbie Grady MD Assessment Patient has the following medical conditions which may affect monique-operative course: Pre-op examination see note for medical conditions which may affect monique-operative course that were addressed at today's visit. Bicipital tendinitis, left Surgery scheduled 01/21/24. HYPERTENSION Nadolol and HCTZ- instructed to take morning of surgery. Amlodipine- instructed to continue as normal, as patient takes in the evenings. Lisinopril- instructed to hold morning of surgery. Hyperlipidemia No medication. Statin intolerant. Diet and lifestyle modification. Aortic atherosclerosis (HCC) CT lung 11/07/22: Other findings: The central airways are patent without endobronchial lesion. No focal consolidation. No pleural effusion. 9 mm calcified nodule in the isthmus of the thyroid gland. No thoracic lymphadenopathy. Mild atherosclerotic calcifications of the thoracic aorta. The thoracic aorta and main pulmonary artery are normal in caliber. The cardiac chambers are normal in size. Minimal coronary artery calcifications present. No pericardial effusion. Mild degenerative changes of the thoracic spine. The soft tissues of the chest wall are unremarkable. There is cholelithiasis. The imaged upper abdomen discloses no acute abnormality. Fibromuscular dysplasia (HCC) Stable. Diagnosed in 2016. In renal and carotid arteries. Aspirin- instructed to follow prescribing physician and surgeon's pre-op instructions. Has not seen [facility] clinic within the last year- managed by PCP. Abdominal US 11/24/21: ESOPHAGEAL REFLUX Omeprazole. Instructed to take morning of surgery. Controlled type 2 diabetes mellitus without complication, without long-term current use of insulin (HCC) Metformin- instructed to hold morning of surgery. Hemoglobin A1C (%) Date Value 12/24/2023 6.3 03/28/2021 6.9 Giant cell arteritis (HCC) Diagnosed in 2020. Was on high dose Prednisone for 9 months- has since been discontinued. Tobacco abuse, in remission Former cigarette smoker. Quit 2013. 32 pack years. Jung Activity Status Index: METS: Climb a flight of stairs or walk up a hill (5.50 METs) DASI Score: 5.5 Patient denies any chest pain or undue shortness of breath with the above physical activity. ARISCAT Score: Age: 51-80 Preoperative SpO2: >=96% Respiratory infection in the last month: No Preoperative anemia: Yes Surgical incision: peripheral Duration of surgery: <2 hrs Emergency procedure: No ARISCAT Score: 14 ANESTHESIA FINDINGS: Intubation History: No history of difficult intubation. No abnormal airway history Significant Anesthesia Considerations: none Airway History: No history of difficult airway No abnormal airway history I - PHYSICAL EVALUATION AIRWAY Patient intubated: No. DENTAL Dentures, upper: complete. Dentures, lower: complete. II - ANESTHESIA PLAN Anesthetic Plan: general Beta Narinder Monitoring Plan Post Procedure Analgesic Plan Prepared for Surgery: CONSULTS: Patient does not require consults for optimization at this time Planned Anesthetic: general The Following Tests/Procedures Have Been Initiated: No orders entered in [facility] per surgeon. REASON FOR VISIT: Crystal Thakur is a 63 year old female who is scheduled for Procedure(s) with comments: ARTHROSCOPY SHOULDER BICEPS TENODESIS (Left) - INTERSCALENE BLOCK at the request of Dr. Wilmar Vivar for routine H&P. My final recommendation will be communicated back to the requesting physician by way of shared medical record or letter. Subjective The patient has the following: ACTIVE PROBLEM LIST HYPERTENSION Hyperlipidemia Esophageal Reflux Fibromyalgia Osteoarthrosis, Unspecified Whether Generalized Or Localized, Lower Leg Obesity, Unspecified Edema Vitamin D Deficiency Benign Neoplasm of Colon Cervicalgia Dizziness and Giddiness Chondromalacia of Patella Pain in Joint, Hand Cmc Arthritis, Thumb, Degenerative Cervical High Risk Human Papillomavirus (Hpv) Dna Test Positive Druj (Distal Radioulnar Joint) Arthrosis, Primary Controlled Type 2 Diabetes Mellitus Without Complication, Without Long-Term Current Use of Insulin (Hcc) Fibromuscular Dysplasia (Hcc) Heart Palpitations Status Post Total Right Knee Replacement Using Cement Rectocele Complete Uterine Prolapse Obesity, Class I, Bmi 30-34.9 Aortic Atherosclerosis (Hcc) Statin Intolerance Tobacco Abuse, in Remission Encounter for Current Fdc Use of Antiplatelet Drug Family History of Intracranial Aneurysms S/P Right Rotator Cuff Repair Impingement Syndrome of Right Shoulder Impingement Syndrome of Left Shoulder Biceps Tendonosis of Right Shoulder Left Renal Stone Acute Midline Low Back Pain Without Sciatica Pre-Op Examination Bicipital Tendinitis, Left Giant Cell Arteritis (Hcc) COVID-19 Immunization Status Overdue - Covid-19 Vaccine ( season) Overdue since 03/09/2023 07/06/2021 Imm Admin: COVID-19 original vaccine, age 12+ yr, monovalent (PFIZER- BIONTECH - PURPLE TOP) 03/29/2021 Imm Admin: COVID-19 original vaccine, age 12+ yr, monovalent (PFIZER- BIONTECH - PURPLE TOP) 12/15/2020 Postponed until 12/15/2021 by Cande Zacarias) (Declined at this time) Only the first 3 history entries have been loaded, but more history exists. CHIEF COMPLAINT: The reason for this visit is to perform a comprehensive review of the patients past medical history, assess their current health status and obtain any additional testing required based on anesthesia guidelines. To assess and identify potential anesthesia problems, particularly those that may suggest potential complications or contraindications to the planned procedure. HPI: Patient is a 63 year old female who presents for presurgical testing. Patient has a history ofleft shoulder pain. She reports the pain first started about 4 years ago. She denies any injury ortrauma to shoulder. She has attempted physical therapy, laser therapy, and injections with minimal pain relief. She reports difficulty with lifting her arm above her head. Pain is 8/10 at PAT visit. Denies any numbness or tingling. Denies any recent fever or chills. Patient denies any other problems or concerns at this time. Risks and benefits of the procedure discussed by Surgeon and patient agreed to proceed with planned procedure. REVIEW OF SYSTEMS: General: Positive for: malaise. Negative for: weight loss >10% of BW in last 6 months and fever. Neurological: Negative for: seizures and strokes. Respiratory: Negative for: asthma, COPD, pneumonia within 6 weeks, URI < 2 weeks and obstructive sleep apnea. Cardiovascular: Positive for: CAD, hyperlipidemia and hypertension Negative for: atrial fibrillation, chest pain, CHF and DVT/PE. GI: Positive for: GERD Negative for: liver disease. : Negative for: frequent urination, hematuria and urgency. HYDRAULIC TESTER: Negative for abnormal vaginal bleeding, abnormal vaginal discharge. Endocrine: Positive for: diabetes mellitus. Patient's diabetes mellitus is controlled by oral agents. Negative for: hyperthyroidism. Hematology: No history of bleeding or clotting disorder. Patient is not taking anti-coagulation or platelet medications. No history of hematological symptoms or problems. Oncology: No history of CA metastasis, chemo within 30 days, or radiotherapy within 90 days. No history of oncological symptoms or problems. Psych: No history of psychiatric symptoms or problems. Musculoskeletal: See HPI. Positive for: joint pain. Skin: Negative for lesions, rash and itching. 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 Abnormal Pap smear of cervix 09/11/2013 [facility]IL, Seeing HYDRAULIC TESTER Allergic rhinitis Anemia, unspecified Due to heavy menstrual cycles Benign neoplasm of colon 08/2009 POLYPS Cervical high risk human papillomavirus (HPV) DNA test positive 09/18/2013 Cystocele, midline Diabetes mellitus type II, controlled (HCC) metformin Diverticulosis Esophageal reflux 1999 RESOLVED due to diet change Esophagitis, unspecified Essential hypertension, benign 1998 Fatty liver Fibromuscular dysplasia (HCC) renal and carotid arteries; follows with [facility] Fibromyalgia Giant cell arteritis (HCC) 2020 Heart palpitations nadalol helps Incomplete uterovaginal prolapse Obesity, unspecified Osteoarthrosis, unspecified whether generalized or localized, lower leg bilateral knees > hips Other and unspecified hyperlipidemia 1998 has been on meds in past, had tolerated Lipitor but afraid of statins Phlebitis and thrombophlebitis of superficial vessels of lower extremities 3rd child 1985, right leg Renal stones Varicose veins of other sites 2007 h/o varicose veins onset with first age of 20, had total of 4 pregnancies last was twins.First Vein stripping right leg surgery was 1992 at [facility], Second surgery 1993 to left leg (h/o hernia repair reason for one leg at a time). Here for possible laser surgery to remove lumpy and rope type veins. PAST SURGICAL HISTORY Procedure Laterality Date COLSC FLX W/RMVL OF TUMOR POLYP LESION SNARE TQ 01/14/2010 DILATION & CURETTAGE DX&/THER NONOBSTETRIC 2006 Dilation & curettage-HYPERPLASIA, likely will have hysterectomy within next year EGD TRANSORAL BIOPSY SINGLE/MULTIPLE 01/14/2010 EXC CYST/ABERRANT BREAST TISSUE OPEN 1/> LESION 01/03/2010 Left breast, benign FASCIECTOMY PLANTAR FASCIA PARTIAL SPX 1992 FOOT Left 1989' plantar fasciitis release HYSTERECTOMY HX 05/03/2020 [facility], uterosacral vaginal vault suspension, A/P repair IUD INSERTION (HYDRAULIC TESTER DEPT)_*FL 05/14/2008 Mirena, removed JOINT REPLACEMENT HX total right knee LIG/TRNSXJ FLP TUBE ABDL/VAG APPR UNI/BI 1988 Tubal ligation NOVASURE 01/2010 PAST SURGICAL HISTORY OF 1984 EXPLORATORY LAP PAST SURGICAL HISTORY OF 1992 BILAT LEG-VEIN STRIPPING PAST SURGICAL HISTORY OF 10/2007, 12/2007 Bilat leg-vein stripping PAST SURGICAL HISTORY OF Right 01/24/2021 Right bicep repair PAST SURGICAL HISTORY OF Right 2018 TKA REMOVE INTRAUTERINE DEVICE 2011 Expelled 3 weeks after insertion REPAIR INGUINAL HERNIA Bilateral 08/30/2022 laparoscopic repair with mesh ROTATOR CUFF REPAIR Right bicept reattachment RPR UMBILICAL HRNA 5 YRS/> REDUCIBLE 1993, 1989, 2007 Repaired 3 Times VAGINOSCOPY 09/25/2013 LSIL FAMILY HISTORY Problem Relation Age of Onset Lipids Mother High Cholesterol Hypertension Mother Osteoporosis Mother Arthritis Mother Cataract Mother resolved with surgery other (Other) Mother Meniere's Skin Cancer Mother Psychiatry Father depression, committed suicide age 49 Osteoporosis Maternal Grandmother Thyroid Maternal Grandmother Cancer Maternal Grandfather leukemia Heart Maternal Grandfather Alzheimer's Disease Paternal Grandmother Thyroid Daughter Strabismus Daughter other (turners) Daughter other (aortic stenosis) Daughter Thyroid Daughter other (celiac disease) Daughter other (Fibromyalgia) Daughter other (MVP) Daughter Thyroid Daughter other (MVP) Daughter Hypertension Son other (hypogonadism) Son other (osteoarthritis) Son other (IBS) Son Diabetes Paternal Aunt Anesthesia Problems No Family History Social History Tobacco Use Smoking status: Former Packs/day: 1.00 Years: 32.00 Additional pack years: 0.00 Total pack years: 32.00 Types: Cigarettes Quit date: 03/14/2014 Years since quittin.8 Smokeless tobacco: Never Vaping Use Vaping Use: Never used Substance Use Topics Alcohol use: Yes Comment: rarely Drug use: Yes Comment: CBD gummies and "cigarette" couple times a week Prior to Admission medications as of 01/17/24 1313 Medication Sig Last Dose Taking Lactobacillus acidoph-pectin 75 million cell -100 mg cap Take 1 capsule by mouth once daily. Yes VITAMIN B COMPLEX ORAL Take by mouth once daily. Yes methocarbamol (ROBAXIN) 500 mg tablet Take 2 tablets by mouth three times a day. As needed for painYes omeprazole (PRILOSEC) 20 mg capsule Take 1 capsule by mouth daily before breakfast. 1/2 hr before meal. Yes hydroCHLOROthiazide 25 mg tablet Take 1 tablet by mouth once daily. Yes lisinopril (ZESTRIL) 20 mg tablet Take 2 tablets by mouth once daily. Yes coenzyme Q10 (CO Q-10) 100 mg cap capsule Take 2 capsules by mouth once daily. Yes nadolol (CORGARD) 40 mg tablet Take 1 tablet by mouth two times a day. Yes amLODIPine (NORVASC) 10 mg tablet Take 1 tablet by mouth once daily. Yes VITAMIN K2 ORAL Take 100 mcg by mouth once daily. Yes ondansetron (ZOFRAN) 4 mg tablet Take 1 tablet by mouth every 8 hours as needed. Yes nortriptyline (PAMELOR) 25 mg capsule Take 1 capsule by mouth daily at bedtime. Yes Milk Thistle 150 mg cap Take 1 capsule by mouth once daily. Yes metFORMIN ER (GLUCOPHAGE XR) 500 mg 24 hr tablet Take 3 tablets by mouth daily with breakfast. Patient taking differently: Take 500 mg by mouth daily with breakfast. Yes ibuprofen (MOTRIN) 800 mg tablet Take 1 tablet by mouth every 6 hours as needed for pain. Yes albuterol HFA (PROVENTIL HFA, VENTOLIN HFA) 90 mcg/actuation inhaler Inhale 2 Puffs as instructed every 4 hours as needed. Yes nystatin (MYCOSTATIN) powder Apply 1 application to affected area as needed. Yes benzonatate (TESSALON PERLE) 100 mg capsule Take 1 capsule by mouth three times daily as needed forcough. Yes calcium carbonate/vitamin D3 (CALCIUM WITH VITAMIN D ORAL) Take 1 tablet by mouth twice daily. 600 mg calcium with 1000mg vitamin D3 Yes aspirin, enteric coated (ASPIR-LOW) 81 mg EC tablet Take 1 tablet by mouth once daily. Yes ursodiol (ACTIGALL) 300 mg capsule Take 300 mg by mouth twice daily. Yes loratadine (CLARITIN) 10 mg ORAL tablet Take 1 tablet by mouth once daily. Patient taking differently: Take 10 mg by mouth as needed. Yes FREESTYLE HUGH 14 DAY SENSOR kit apply NEW SENSOR EVERY 14 DAYS TO UPPER ARM blood sugar diagnostic (TRUE METRIX GLUCOSE TEST STRIP) test strip Use 4-6 times daily to check blood sugar. Dx:E11.9 insulin:No lancets (FREESTYLE LANCETS) 28 gauge misc Test blood sugar(s) one times daily. Dx: Type 2 DM - Controlled E11.9 Insulin: No Medication Comments documented by Cande Zacarias MA on 03/29/2021 at 1325. Taking CBD oral gummies and patch. Gummies 10 mg, taking up to 100 mg daily. CBD patch 40 mg q 4 days. Takes Melatonin OTC ALLERGIES Allergen Reactions Cymbalta [Duloxetin* Other: See Comments Intolerance, elevated BP, pulse Keflex [Cephalexin] GI Upset Bloating and tears up stomach Monosodium Glutamat* Other: See Comments Severe headache Oxycodone Other: See Comments Heart palpitations Rabbit Dander Shortness of Breath Huan's Wort Other: See Comments Elevated BP Atorvastatin Myalgia Muscle Aches Crestor [Rosuvastat* Myalgia Gabapentin Other: See Comments Depression, suicidal thoughts Niacin Intolerance Facial numbness Niacinamide Other: See Comments Facial Numbness Cats Shortness of Breath Aspartame Other: See Comments Severe headache Doxycycline GI Upset Erythromycin GI Upset Glutamic Acid Unknown Patient is not familiar with this product Latex Itching Redness Sucralose Unknown Zithromax [Azithrom* GI Upset GI Objective PHYSICAL EXAM: General: alert and oriented and healthy appearance. Pertinent negatives noted - not distressed. Skin: normal color, no rash or lesions. HEENT: EOM intact and pupils equal round. Cardiovascular: regular rate and rhythm, normal S1 and S2, no rub, murmurs, or gallop. Respiratory: normal breath sounds, no wheezes or crackles. No chest wall deformity or tenderness. Abdomen: bowel sounds present. Extremities: Positive for joint tenderness. Neurological: normal cognition and motor skills. Positive for limb weakness. Limb weakness located left UE. PAIN ASSESSMENT: Pain Pain Level: 8 Frequency: Continuous VITALS: BP 134/89 Pulse 69 Temp 98.1 Resp 18 Ht 5' 6.5" (1.69m) Wt 186 lb 6.4 oz (84.6kg) SpO2 97% LMP 04/17/2016 BMI 29.64 kg/(m^2). Diagnostic tests reviewed for today's visit: Lab Value Units Date High Low HB No results within date range. HCT No results within date range. WBC No results within date range. PLT No results within date range. NA 137 mmol/L 12/24/2023 144 136 K 4.1 mmol/L 12/24/2023 5.1 3.7 GLUC 109 mg/dL 12/24/2023 99 74 BUN 21 mg/dL 12/24/2023 21 7 CREAT 0.62 mg/dL 12/24/2023 0.96 0.58 PTSEC No results within date range. INR No results within date range. APTT No results within date range. ALT 12 U/L 12/24/2023 38 7 AST 13 U/L 12/24/2023 35 13 TBILI 0.4 mg/dL 12/24/2023 1.3 0.2 TSH No results within date range. Lab Value Units Date High Low HCGQT No results within date range. UHCG No results within date range. HCG, BODY* No results within date range. Lab Value Units Date High Low ABORHD No results within date range. ABSCREEN No results within date range. Hemoglobin A1C (%) Date Value 12/24/2023 6.3 06/20/2023 6.5 12/18/2022 6.7 06/20/2022 6.8 12/15/2021 6.5 03/28/2021 6.9 12/13/2020 7.1 06/10/2020 6.9 12/09/2019 6.2 02/24/2019 6.7 No results found for this or any previous visit (from the past 8760 hour(s)). No results found for this or any previous visit (from the past 22270 hour(s)). Implantable Devices: right TKA, abdominal mesh Assessment/Plan Bicipital tendinitis, left [M75.22] PLAN Planned Procedure: Procedure(s) with comments: ARTHROSCOPY SHOULDER BICEPS TENODESIS (Left) - INTERSCALENE BLOCK I spent a total of 50 minutes on the date of the service which included preparing to see the patient, [id number] patient care, completing clinical documentation, obtaining and/or reviewing separately obtained history, performing a medically appropriate examination, and counseling and educating the patient/family/caregiver. Instructions Given to Patient: Instructions located in the after visit summary. Patient given verbal and written preop instructions and voices comprehension and compliance. SIGNATURE: Marah Pinzon APRN.CNP PATIENT NAME: Crystal Thakur DATE: January 17, 2024 TIME: 1:00 PM PAGER/CONTACT #: [facility]Tr[facility] Instructions* Patient Instructions* Marah Pinzon APRN.CNP - 01/17/2024 7:28 AM EDT PATIENT PREOPERATIVE INSTRUCTIONS Your surgeon has scheduled for your procedure at this surgery center: [facility] [address], [place] [address] Please read below carefully for your personalized instructions. SURGERY DATE : 01/21/24 Your surgeon's office will provide you with your ARRIVAL TIME for surgery. - If you have not received an arrival time by the afternoon before your surgery date, please followup with your surgeon's office. - If you are scheduled for a Sunday surgery, please make sure you have your arrival time by Sunday afternoon. Please be aware that emergency situations arise, which may delay or change your surgical time. If this happens, your surgeon's office will notify you as soon as possible and regret any inconvenience. Requirement for Vaccinations : 72-hour period between getting vaccine and date of surgery. Dietary Restrictions: - Nothing to eat or drink after midnight. This is important because if you do, your surgery may have to be cancelled Blood Thinning Medications: - Stop NSAIDS (Ibuprofen, Advil, Aleve, Motrin, Celebrex, Mobic, etc.) 7 days before surgery, as directed by your surgeon. You may take Tylenol (Acetaminophen) or any of your pain medications that do not contain aspirin orNSAIDS as needed. IF YOU TAKE ANY OF THE FOLLOWING BLOOD THINNERS, PLEASE CONTACT YOUR SURGEON AND THE PHYSICIAN WHO PRESCRIBES IT FOR YOU IN ORDER TO GET PERIOPERATIVE INSTRUCTIONS SOON POSSIBLE. BLOOD THINNERS: Aspirin , Coumadin, Plavix, Eliquis, Pradaxa, Xarelto, Lovenox, Brilinta, Effient, Savaysa, Arixtra, etc - Stop Vitamin E, fish oil, multivitamins, Marijuana, CBD oil and other over the counter herbals and dietary supplements 7 days before surgery. -This would not apply to cancer patients who are prescribed Marinol or any other prescription form on marijuana or CBD. Medications: Approved medications to take the morning of surgery with a sip of water: BP, HCTZ, Heart, thyroid, psych, seizure, and pain medications excluding NSAIDS. Use inhalers as prescribed. Please bring inhalers. Diabetes: Please follow up with the provider that manages your diabetes and how to prepare you for surgery. Do not take the morning of surgery: Trajenta, Metformin, Actos/Pioglitazone and Amaryl/Glimepiride. For the following Medications, please HOLD 2 DAYS PRIOR TO SURGERY: Glucotrol/Glipizide, Januvia/Sitagliptin, Glyburide, Prandin/Repaglinide, Starlix/Nateglinide, Symlin/Pramlintide, For the following Medications, please HOLD 3 DAYS PRIOR TO SURGERY: Canagliflozin/Invokana, Dapagliflozin/Farxiga ,Empagliflozin/Jardiance, Invokamet/canagliflozin and metformin, Xigduo XR/ dapagliglozin and metformin, Glyxambi/ empagliflozin and metformin, Syndardy/ empagliflozin and metformin For the following Medications, please HOLD 4 DAYS PRIOR TO SURGERY: Ertugliflozin/Steglatro For the following Medications, please HOLD 7 DAYS PRIOR TO SURGERY: GLP-1 AGONIST: Adlyxin (lixisenatide), Bydureon BCise (exenatide suspension), Byetta (exenatide), Mounjaro (tirzepatide), Ozempic (semaglutide injection), Rybelsus (semaglutide tablets), Tanzeum (albiglutide), Trulicity (dulaglutide), Victoza (liraglutide), Wegovy (semaglutide), Saxenda (liraglutide) Insulin Medication Instructions: Please follow up with the provider that manages your Insulin and how to prepare you for surgery. Pre-Surgery Med Instructions Medication Instructions Lactobacillus acidoph-pectin 75 million cell -100 mg cap Continue until night before surgery VITAMIN B COMPLEX ORAL Stop 7 days before surgery methocarbamol (ROBAXIN) 500 mg tablet Ok to continue omeprazole (PRILOSEC) 20 mg capsule Take morning of surgery with sip of water, no other fluids hydroCHLOROthiazide 25 mg tablet Take morning of surgery with sip of water, no other fluids lisinopril (ZESTRIL) 20 mg tablet Continue until night before surgery coenzyme Q10 (CO Q-10) 100 mg cap capsule Stop 7 days before surgery nadolol (CORGARD) 40 mg tablet Take morning of surgery with sip of water, no other fluids amLODIPine (NORVASC) 10 mg tablet Continue until night before surgery VITAMIN K2 ORAL Stop 7 days before surgery ondansetron (ZOFRAN) 4 mg tablet Ok to continue nortriptyline (PAMELOR) 25 mg capsule Continue until night before surgery Milk Thistle 150 mg cap Stop 7 days before surgery metFORMIN ER (GLUCOPHAGE XR) 500 mg 24 hr tablet Continue until night before surgery ibuprofen (MOTRIN) 800 mg tablet Stop 7 days before surgery albuterol HFA (PROVENTIL HFA, VENTOLIN HFA) 90 mcg/actuation inhaler Continue using as prescribed and bring inhaler to surgery. nystatin (MYCOSTATIN) powder Do not use night before or morning of surgery. benzonatate (TESSALON PERLE) 100 mg capsule Ok to continue calcium carbonate/vitamin D3 (CALCIUM WITH VITAMIN D ORAL) Continue until night before surgery aspirin, enteric coated (ASPIR-LOW) 81 mg EC tablet As per surgeon's recommendation ursodiol (ACTIGALL) 300 mg capsule Take morning of surgery with sip of water, no other fluids loratadine (CLARITIN) 10 mg ORAL tablet Take morning of surgery with sip of water, no other fluids Pain Medications: Tylenol for pain as needed and if you are not allergic to. If you start any new medications after today's visit, please contact the surgeon's office. Important Reminders: - If you use CPAP/BIPAP, bring the machine with you to the surgery center. - If you are prescribed inhalers for breathing, continue using them AND bring them to the surgery center. - Candy, mints, gum and tobacco products are NOT permitted the morning of surgery. - Hearing aids, dentures and glasses may be worn the morning of surgery. - NO jewelry, body piercings, makeup, hairpins or contacts are to be worn the day of surgery. - Oral hygiene and a shower or bath is required the evening before or the morning of surgery. Use the [id number] body wash supplied to you along with the instruction. - NO lotion, creams, powders or deodorants on the skin the day of surgery - Wear loose, comfortable clothing that will accommodate bandages. - Your length of stay will be determined by your surgeon - You will need to have someone else (Family or friend) drive you home once discharged from the hospital. You are not allowed to drive yourself home after surgery. - YOU MUST HAVE A RESPONSIBLE CAMERA ENGINEER TAKE YOU HOME. A GRINDER WATCH PARTS, CAB OR UBER CAMERA ENGINEER CANNOT BE MADEA RESPONSIBLE CAMERA ENGINEER. - You cannot stay in a hotel alone after outpatient surgery. You will not be permitted to have yoursurgery, if you do not have someone to take care of you. - It is recommended patients have a 72-hour period between getting their vaccine and date of surgery. - If you develop symptoms such as a fever, cold, or flu, or have other changes to your health within TWO DAYS of scheduled surgery or the morning of surgery, please contact the surgery center above. Personal Belongings: - Leave ALL valuables and money at home or with family members. - You will need a form of ID and insurance card to check in the morning of surgery. - You will have to wear a hospital gown during your stay but if you wish to bring undergarments forafter surgery you may. If you already have an Advance Directive, please fax a copy to [phone] or email to for it to be added to your chart. If you do not have an Advance Directive, you can find the appropriate form and more information at [email or web address]. We recommend that youcomplete the Advance Directive form found on the website and bring it with you the day of your surgery. It can be witnessed and scanned into your chart that day. Marah Pinzon APRN.CNP 01/17/24 documented in this encounterTr[facility] Telephone encounter Note * Telephone Encounter - Jaskaran Quiroz APRN.CNP - 01/04/2024 8:54 AM EDT The following approved medication requests have been transmitted electronically. Requested Prescriptions Pending Prescriptions Disp Refills methocarbamol (ROBAXIN) 500 mg tablet 180 tablet 2 Sig: Take 2 tablets by mouth three times a day. As needed for pain Jaskaran Quiroz APRN.CNP [facility]06-28-[facility]24 Miscellaneous Notes* Telephone Encounter - Jaskaran Quiroz APRN.CNP - 01/04/2024 8:54 AM EDT The following approved medication requests have been transmitted electronically. Requested Prescriptions Pending Prescriptions Disp Refills methocarbamol (ROBAXIN) 500 mg tablet 180 tablet 2 Sig: Take 2 tablets by mouth three times a day. As needed for pain Jaskaran Quiroz APRN.CNP * Telephone Encounter - Kinjal Mistry MA - 01/04/2024 8:10 AM EDT Prescription Refill Information The patient has been identified by name and date of : Yes Caregiver verified no other encounters exist for this prescription request: Yes Caregiver confirmed with patient/requestor that no other refills are due, in the near future, with this provider at this time: No The last office visit in the department: 02/28/24 Does the patient have a future office visit with this provider/department: Yes 06/30/24 Requested Prescriptions Pending Prescriptions Disp Refills methocarbamol (ROBAXIN) 500 mg tablet 180 tablet 2 Sig: Take 2 tablets by mouth three times a day. As needed for pain Kinjal Mistry MA January 04, 2024 8:10 AM documented in this encounterTr[facility]06-[facility] Telephone encounter Note * Telephone Encounter - Kinjal Mistry MA - 01/04/2024 8:10 AM EDT Prescription Refill Information The patient has been identified by name and date of : Yes Caregiver verified no other encounters exist for this prescription request: Yes Caregiver confirmed with patient/requestor that no other refills are due, in the near future, with this provider at this time: No The last office visit in the department: 02/28/24 Does the patient have a future office visit with this provider/department: Yes 06/30/24 Requested Prescriptions Pending Prescriptions Disp Refills methocarbamol (ROBAXIN) 500 mg tablet 180 tablet 2 Sig: Take 2 tablets by mouth three times a day. As needed for pain Kinjal Mistry MA January 04, 2024 8:10 AM [facility]06-22-2024 History of Present illness Narrative* Gabbie Grady MD - 12/29/2023 10:40 AM EDT Chief Complaint Follow up HPI Crystal Thakur is a 63 year old female who presents here today for Follow up. Has been following with Osmar Sandoval for biceps tendinitis of left upper extremity. Pt is scheduled for Arthroscopy surgery 01/21/24. Sinus/congestion - last few weeks, ears pluged, stuffy/runny nose. Uses Mucinex 1-2 times/day. Takes claritin and flonase. Allergic to cats; son has cat at home. No bowel, Gi, or urinary issues. Taking Ursodiol 300 mg BID for kidney stones. Reflux sx stable with prilosec 20 mg daily. DM: Has Hugh, checks sugars daily with FBS 80-90. Denies any low BS readings. Does have neuropathyin feet. Taking Metformin 500 mg, 1-2 daily. HTN: Checking BP at home. No chest pains, dizziness, or SOB. Current regimen of Nadolol 40 mg 1 pill BID, Norvasc 10 mg daily, HCTZ 25 mg daily and Lisinopril 20 mg 2 pills once daily. Lipid: Tries to watch diet. Mother has high trig as well as pt children. Has not tolerated lipid lowering medications. Taking ASA 81 mg daily. Fibro: Not Following with [facility] clinic, chronic pain. Takes Ibuprofen 600 mg 1 tab po every 6 hours and Robaxin 500 mg 2 tabs po TID. Has tried CBD gummies in the past. Memory: Has improved, will be forgetful at times. Rheum: Hx of GCA. Previously took Prednisone; has been off for 15 months and doing well.Takes Nortriptyline 25 mg daily. Behavioral Health Screening PHQ-2 Score: 0 (Lower risk for depression) MITCHELL-2 Score: 0 (Lower risk for anxiety) Recommendation: no further intervention at this time Past medical history, appointments, medications, allergies reviewed. 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; follows with [facility] clinic Fibromyalgia Giant cell arteritis (HCC) 2020 Heart palpitations nadalol helps Incomplete uterovaginal prolapse Obesity, unspecified Osteoarthrosis, unspecified whether generalized or localized, lower leg bilateral knees > hips Other and unspecified hyperlipidemia 1998 has been on meds in past, had tolerated Lipitor but afraid of statins Phlebitis and thrombophlebitis of superficial vessels of lower extremities 3rd child 1985, right leg Renal stones Varicose veins of other sites 2006 h/o varicose veins onset with first age of 20, had total of 4 pregnancies last was twins.First Vein stripping right leg surgery was 1992 at [facility], Second surgery 1993 to left leg (h/o hernia repair reason for one leg at a time). Here for possible laser surgery to remove lumpy and rope type veins. Previous Surgical History PAST SURGICAL HISTORY Procedure Laterality Date COLSC FLX W/RMVL OF TUMOR POLYP LESION SNARE TQ 01/14/2010 DILATION & CURETTAGE DX&/THER NONOBSTETRIC 2006 Dilation & curettage-HYPERPLASIA, likely will have hysterectomy within next year EGD TRANSORAL BIOPSY SINGLE/MULTIPLE 01/14/2010 EXC CYST/ABERRANT BREAST TISSUE OPEN 1/> LESION 01/03/2010 Left breast, benign FASCIECTOMY PLANTAR FASCIA PARTIAL SPX 1992 FOOT Left 1989' plantar fasciitis release HYSTERECTOMY HX 05/03/2020 TV[facility], uterosacral vaginal vault suspension, A/P repair IUD INSERTION (HYDRAULIC TESTER DEPT)_*FL 05/14/2008 Mirena, removed JOINT REPLACEMENT HX total right knee LIG/TRNSXJ FLP TUBE ABDL/VAG APPR UNI/BI 1988 Tubal ligation NOVASURE 01/2010 PAST SURGICAL HISTORY OF 1984 EXPLORATORY LAP PAST SURGICAL HISTORY OF 1992 BILAT LEG-VEIN STRIPPING PAST SURGICAL HISTORY OF 10/2007, 12/2007 Bilat leg-vein stripping PAST SURGICAL HISTORY OF Right 01/24/2021 Right bicep repair PAST SURGICAL HISTORY OF Right 2018 TKA REMOVE INTRAUTERINE DEVICE 2011 Expelled 3 weeks after insertion REPAIR INGUINAL HERNIA Bilateral 08/30/2022 laparoscopic repair with mesh ROTATOR CUFF REPAIR Right bicept reattachment RPR UMBILICAL HRNA 5 YRS/> REDUCIBLE 1993, 1989, 2007 Repaired 3 Times VAGINOSCOPY 09/25/2013 LSIL Family History FAMILY HISTORY Problem Relation Age of Onset Lipids Mother High Cholesterol Hypertension Mother Osteoporosis Mother Arthritis Mother Cataract Mother resolved with surgery other (Other) Mother Meniere's Skin Cancer Mother Psychiatry Father depression, committed suicide age 49 Osteoporosis Maternal Grandmother Thyroid Maternal Grandmother Cancer Maternal Grandfather leukemia Heart Maternal Grandfather Alzheimer's Disease Paternal Grandmother Thyroid Daughter Strabismus Daughter other (turners) Daughter other (aortic stenosis) Daughter Thyroid Daughter other (celiac disease) Daughter other (Fibromyalgia) Daughter other (MVP) Daughter Thyroid Daughter other (MVP) Daughter Hypertension Son other (hypogonadism) Son other (osteoarthritis) Son other (IBS) Son Diabetes Paternal Aunt Anesthesia Problems No Family History Patient Allergies ALLERGIES Allergen Reactions Cymbalta [Duloxetin* Other: See Comments Intolerance, elevated BP, pulse Keflex [Cephalexin] GI Upset Bloating and tears up stomach Monosodium Glutamat* Other: See Comments Severe headache Oxycodone Other: See Comments Heart palpitations Rabbit Dander Shortness of Breath [place]'s Wort Other: See Comments Elevated BP Atorvastatin Myalgia Muscle Aches Crestor [Rosuvastat* Myalgia Gabapentin Other: See Comments Depression, suicidal thoughts Niacin Intolerance Facial numbness Niacinamide Other: See Comments Facial Numbness Cats Shortness of Breath Aspartame Other: See Comments Severe headache Doxycycline GI Upset Erythromycin GI Upset Glutamic Acid Unknown Patient is not familiar with this product Latex Itching Redness Sucralose Unknown Zithromax [Azithrom* GI Upset GI Current Medications Current Outpatient Medications on File Prior to Visit Medication Sig omeprazole (PRILOSEC) 20 mg capsule Take 1 capsule by mouth daily before breakfast. 1/2 hr before meal. [employer] 14 DAY SENSOR kit apply NEW SENSOR EVERY 14 DAYS TO UPPER ARM hydroCHLOROthiazide 25 mg tablet Take 1 tablet by mouth once daily. lisinopril (ZESTRIL) 20 mg tablet Take 2 tablets by mouth once daily. coenzyme Q10 (CO Q-10) 100 mg cap capsule Take 2 capsules by mouth once daily. nadolol (CORGARD) 40 mg tablet Take 1 tablet by mouth two times a day. amLODIPine (NORVASC) 10 mg tablet Take 1 tablet by mouth once daily. methocarbamol (ROBAXIN) 500 mg tablet Take 2 tablets by mouth three times a day. As needed for pain VITAMIN K2 ORAL Take 100 mcg by mouth once daily. ondansetron (ZOFRAN) 4 mg tablet Take 1 tablet by mouth every 8 hours as needed. nortriptyline (PAMELOR) 25 mg capsule Take 1 capsule by mouth daily at bedtime. berberine/herbal complex no.18 (BERBERINE-HERBAL COMB NO.18 ORAL) Take by mouth. Milk Thistle 150 mg cap Take 1 capsule by mouth once daily. metFORMIN ER (GLUCOPHAGE XR) 500 mg 24 hr tablet Take 3 tablets by mouth daily with breakfast. ibuprofen (MOTRIN) 800 mg tablet Take 1 tablet by mouth every 6 hours as needed for pain. albuterol HFA (PROVENTIL HFA, VENTOLIN HFA) 90 mcg/actuation inhaler Inhale 2 Puffs as instructed every 4 hours as needed. nystatin (MYCOSTATIN) powder Apply 1 application to affected area as needed. benzonatate (TESSALON PERLE) 100 mg capsule Take 1 capsule by mouth three times daily as needed forcough. blood sugar diagnostic (TRUE METRIX GLUCOSE TEST STRIP) test strip Use 4-6 times daily to check blood sugar. Dx:E11.9 insulin:No calcium carbonate/vitamin D3 (CALCIUM WITH VITAMIN D ORAL) Take 1 tablet by mouth twice daily. 600 mg calcium with 1000mg vitamin D3 aspirin, enteric coated (ASPIR-LOW) 81 mg EC tablet Take 1 tablet by mouth once daily. ursodiol (ACTIGALL) 300 mg capsule Take 300 mg by mouth twice daily. lancets (FREESTYLE LANCETS) 28 gauge misc Test blood sugar(s) one times daily. Dx: Type 2 DM - Controlled E11.9 Insulin: No loratadine (CLARITIN) 10 mg ORAL tablet Take 1 tablet by mouth once daily. (Patient taking differently: Take 10 mg by mouth as needed.) No current facility-administered medications on file prior to visit. Social History Social History Tobacco Use Smoking status: Former Packs/day: 1.00 Years: 32.00 Additional pack years: 0.00 Total pack years: 32.00 Types: Cigarettes Quit date: 03/14/2014 Years since quittin.7 Smokeless tobacco: Never Tobacco comments: occasional Vaping Use Vaping Use: Never used Substance Use Topics Alcohol use: Yes Comment: rarely Drug use: No EXAM: [facility] 04/17/2016 (Exact Date) General Appearance: Well appearing, alert, in no acute distress, well-hydrated, well nourished.. Lungs: Lungs clear to auscultation. No wheezing, rhonchi, rales.. Heart: RRR without murmur, gallop, or rubs. No ectopy. Health Maintenance List Pneumococcal Vaccine(1 of 2 - PCV) Never done Shingrix Vaccine(1 of 2) Never done BP Controlled (<130/80) due on 11/28/2019 RSV Vaccine(1 - 1-dose 60+ series) Never done Dilated Retinal Exam due on 07/13/2022 Covid-19 Vaccine(3 - 2022-24 season) due on 03/09/2023 Behavioral Health Screening Never done Lung Cancer Screening due on 11/08/2023 Diabetic Foot Exam due on 12/22/2023 Influenza Vaccine(Season Ended) due on 03/09/2024 Urine Albumin:Creatinine Ratio due on 06/20/2024 HbA1C due on 06/24/2024 Annual PCP Team Chronic Disease Visit due on 07/04/2024 Colorectal Cancer Screening due on 08/02/2024 Mammogram Screening due on 11/25/2024 LDL Cholesterol due on 12/23/2024 DTaP,Tdap,Td Vaccine(2 - Td or Tdap) due on 03/14/2027 Hepatitis C Screening Completed HIV Screening Completed Cervical Cancer Screening Discontinued Data reviewed Appointment on 12/24/2023 Component Date Value Protein, Total 12/24/2023 6.9 Albumin 12/24/2023 4.3 Calcium, Total 12/24/2023 9.6 Bilirubin, Total 12/24/2023 0.4 Alkaline Phosphatase 12/24/2023 62 AST 12/24/2023 13 ALT 12/24/2023 12 Glucose 12/24/2023 109 (H) BUN 12/24/2023 21 Creatinine 12/24/2023 0.62 Sodium 12/24/2023 137 Potassium 12/24/2023 4.1 Chloride 12/24/2023 102 CO2 12/24/2023 23 Anion Gap 12/24/2023 12 Estimated Glomerular Mundo* 12/24/2023 101 Hemoglobin A1C 12/24/2023 6.3 (H) Estimated Average Glucose 12/24/2023 134 Cholesterol, Total 12/24/2023 317 (H) Triglyceride 12/24/2023 328 (H) HDL Cholesterol 12/24/2023 45 Non HDL Cholesterol 12/24/2023 272 (H) Fasting Time 12/24/2023 10 VLDL Cholesterol 12/24/2023 66 (H) TC:HDL Ratio 12/24/2023 7.04 (H) LDL Cholesterol 12/24/2023 206 (H) LDL:HDL Ratio 12/24/2023 4.58 (H) Sed Rate, Westergren 12/24/2023 12 CRP 12/24/2023 0.5 Vitamin D 25 Hydroxy 12/24/2023 44.7 Vitamin B12 12/24/2023 697 ASSESSMENT/PLAN: 1. Mixed hyperlipidemia - ICD9: 272.2, ICD10: E78.2 (primary diagnosis) - Improving control - Barriers to control: intolerant of medications - Counseled on healthy diet and regular exercise - COMPREHENSIVE METABOLIC PANEL - LIPID PANEL BASIC 2. HYPERTENSION - ICD9: 401.1, ICD10: I10 - Controlled - Continue current medications - Recommend home blood pressure monitoring, to bring results to next visit - Encouraged sodium restriction, DASH or Mediterranean diet - Recommend regular aerobic exercise - COMPLETE BLOOD COUNT 3. Fibromyalgia - ICD9: 729.1, ICD10: M79.7 4. Controlled type 2 diabetes mellitus without complication, without long-term current use of insulin (HCC) - ICD9: 250.00, ICD10: E11.9 - Improving control - Continue current medications - COMPREHENSIVE METABOLIC PANEL - LIPID PANEL BASIC - HEMOGLOBIN A1C 5. Biceps tendonosis of right shoulder - ICD9: 726.10, ICD10: M67.813 Follow with Ortho 6. Temporal arteritis (HCC) - ICD9: 446.5, ICD10: M31.6 Resolved; monitor labs - SEDIMENTATION RATE, WESTERGREN - C-REACTIVE PROTEIN Follow up in 6 months Medical Decision Making: Problems: Moderate: 2+ stable chronic illnesses Data: Unique test result(s) reviewed: 3+ Unique test(s) ordered: 3+ Risk: Moderate: Drug management Medical Decision Making Level: 4 - Moderate Gabbie Grady MD documented [facility] Telephone encounter Note * Telephone Encounter - Xochilt Fernandez APRN.CNP - 12/20/2023 7:41 AM EDT The following approved medication requests have been transmitted electronically. Requested Prescriptions Pending Prescriptions Disp Refills omeprazole (PRILOSEC) 20 mg capsule 90 capsule 3 Sig: Take 1 capsule by mouth daily before breakfast. 1/2 hr before meal. Xochilt Fernandez APRN.CNP [facility]06-13-2024 Miscellaneous Notes* Telephone Encounter - Xochilt Fernandez APRN.CNP - 12/20/2023 7:41 AM EDT The following approved medication requests have been transmitted electronically. Requested Prescriptions Pending Prescriptions Disp Refills omeprazole (PRILOSEC) 20 mg capsule 90 capsule 3 Sig: Take 1 capsule by mouth daily before breakfast. 1/2 hr before meal. Xochilt Fernandez APRN.CNP * Telephone Encounter - Kati Lundy OCCA - 12/20/2023 7:12 AM EDT Prescription Refill Information The patient has been identified by name and date of : Yes Caregiver verified no other encounters exist for this prescription request: Yes Caregiver confirmed with patient/requestor that no other refills are due, in the near future, with this provider at this time: Yes The last office visit in the department: 07/04/23 Does the patient have a future office visit with this provider/department: Yes, 12/29/23 Requested Prescriptions Pending Prescriptions Disp Refills omeprazole (PRILOSEC) 20 mg capsule 90 capsule 3 Sig: Take 1 capsule by mouth daily before breakfast. 1/2 hr before meal. JESSICA Burciaga December 20, 2023 7:13 AM documented in this encounterTr[facility] Telephone encounter Note * Telephone Encounter - Kati Lundy OCCA - 12/20/2023 7:12 AM EDT Prescription Refill Information The patient has been identified by name and date of : Yes Caregiver verified no other encounters exist for this prescription request: Yes Caregiver confirmed with patient/requestor that no other refills are due, in the near future, with this provider at this time: Yes The last office visit in the department: 07/04/23 Does the patient have a future office visit with this provider/department: Yes, 12/29/23 Requested Prescriptions Pending Prescriptions Disp Refills omeprazole (PRILOSEC) 20 mg capsule 90 capsule 3 Sig: Take 1 capsule by mouth daily before breakfast. 1/2 hr before meal. JESSICA Burciaga December 20, 2023 7:13 AM [facility]05-29-2024 NoteHNO ID: [id number] Author: WILMAR VIVAR MD Service: ? Author Type: Physician Type: Progress Notes Filed: 12/05/2023 12:32 Note Text: PAIN EVALUATION 11/27/2023 1445 12/04/2023 1401 Pain Level: 9 4 Pain Location: Shoulder-Left -- Description: Aching;Radiating;Shooting;Stiffness;Throbbing -- Duration Amount of Time: 6 -- Duration Units: Months Months Frequency: Continuous Intermittent Intervention/Comfort measure: Medication;Reposition;Relaxation;Cold;Distractions;Exercise;Pillow support;Positioning;Support surface -- Comments: Has steadily gotten worse. Only mild relief with Motrin, Robaxin and CBD. P T made it worse. Cortisone injections only helped for a few days to weeks. Ice and shoulder support only helps minimally. -- Encounter Diagnosis ICD-10-CM 1. Biceps tendinitis of left upper extremity M75.22 Crystal Thakur returns to review MRI left shoulder. IMAGING: I personally reviewed the MRI of the left shoulder in the office today, and I am in agreement with the radiologist's interpretation with the following modifications: None PLAN: Crystal Thakur presents today with persistent anterior left shoulder pain with exam findings consistent with bicipital instability and tendinitis. Based on my evaluation today, I do not feel that nonsurgical interventions including physical therapy, activity modification, and medical management are likely to provide this patient with an acceptable level of improvement in functional use of the arm, nor significant pain relief. After thorough review of history, examination findings, and imaging, we discussed surgical intervention today which would be arthroscopy with biceps tenodesis. I described the procedure in detail as well as the expected healing time of 3-6 months and physical therapy regimen following surgery, likely for much of this time. Informed consent was discussed in detail and signed in the office today. Significant risks of surgery including those of general anesthesia, and those from surgery including infection, nerve injury, bleeding, procedure failure and possible need for repeat procedure were all discussed at the time of consent. No guarantees as to the outcome of surgery were given or implied. Surgery will be scheduled for the next available date. Wilmar Vivar MD Shoulder AND Elbow Surgeon Department of Orthopaedic Surgery [facility]05-29-2024 History of Present illness Narrative* Wilmar Vivar MD - 12/05/2023 11:18 AM EDT Images from the original note were not included. PAIN EVALUATION 11/27/2023 1445 12/04/2023 1401 Pain Level: 9 4 Pain Location: Shoulder-Left -- Description: Aching;Radiating;Shooting;Stiffness;Throbbing -- Duration Amount of Time: 6 -- Duration Units: Months Months Frequency: Continuous Intermittent Intervention/Comfort measure: Medication;Reposition;Relaxation;Cold;Distractions;Exercise;Pillow sup port;Positioning;Support surface -- Comments: Has steadily gotten worse. Only mild relief with Motrin, Robaxin and CBD. P T made it worse. Cortisone injections only helped for a few days to weeks. Ice and shoulder support only helps minimally. -- Encounter Diagnosis ICD-10-CM 1. Biceps tendinitis of left upper extremity M75.22 Crystal Thakur returns to review MRI left shoulder. IMAGING: I personally reviewed the MRI of the left shoulder in the office today, and I am in agreement with the radiologist's interpretation with the following modifications: None PLAN: Crystal Thakur presents today with persistent anterior left shoulder pain with exam findings consistent with bicipital instability and tendinitis. Based on my evaluation today, I do not feel that nonsurgical interventions including physical therapy, activity modification, and medical management are likely to provide this patient with an acceptable level of improvement in functional use of the arm, nor significant pain relief. After thorough review of history, examination findings, and imaging, we discussed surgical intervention today which would be arthroscopy with biceps tenodesis. I described the procedure in detail as well as the expected healing time of 3-6 months and physical therapy regimen following surgery, likely for much of this time. Informed consent was discussed in detail and signed in the office today. Significant risks of surgery including those of general anesthesia, and those from surgery including infection, nerve injury, bleeding, procedure failure and possible need for repeat procedure were all discussed at the time of consent. No guarantees as to the outcome of surgery were given or implied. Surgery will be scheduled for the next available date. Wilmar Vivar MD Shoulder & Elbow Surgeon Department of Orthopaedic [facility] documented in this encounterTr[facility] Telephone encounter Note * Telephone Encounter - Kinjal Mistry MA - 12/04/2023 10:51 AM EDT Pt notified. Given Diagnostic mammogram call back number. She will all them to schedule. Kinjal Mistry MA [facility]05-28-2024 Miscellaneous Notes* Telephone Encounter - Kinjal Mistry MA - 12/04/2023 10:51 AM EDT Pt notified. Given Diagnostic mammogram call back number. She will all them to schedule. Kinjal Mistry MA * Telephone Encounter - Kinjal Mistry MA - 11/29/2023 3:15 PM EDT Message left for pt to call back for results. Kinjal Mistry MA * Telephone Encounter - Gabbie Grady MD - 11/29/2023 2:44 PM EDT Please notify patient that the radiologist wanted to get additional imaging of her right breast; orders filed for this Gabbie Grady MD documented in this encounterTr[facility]05-[facility]24 Telephone encounter Note * Telephone Encounter - Kinjal Mistry MA - 11/29/2023 3:15 PM EDT Message left for pt to call back for results. Kinjal Mistry MA [facility]05-23-2024 Telephone encounter Note* Telephone Encounter - Gabbie Grady MD - 11/29/2023 2:44 PM EDT Please notify patient that the radiologist wanted to get additional imaging of her right breast; orders filed for this Gabbie Grady MD [facility]05-21-2024 Note* Letter - Coordinator, Mammography - 11/27/2023 9:21 PM EDT November 28, 2023 PID: [id number] Crystal Thakur [address] [place] [address] Dear Ms. Thakur, Your recent breast imaging exam on 11/26/2023 showed a possible finding that requires additional imaging studies for a complete evaluation. Most such findings are probably benign (not cancer). If you have a healthcare provider who ordered/prescribed your screening mammogram: Please call [phone] or EXT: [phone] to schedule an appointment for your additional imaging (if youhave not already done so). If you DO NOT have a healthcare provider (ie you did not have an order/prescription for your screening mammogram): Please call to schedule an appointment for your additional imaging (if you have not already done so). You must have an order/prescription from your physician when calling to schedule your appointment. If your order/prescription is not electronic, you must bring the hard copy with you on the day of your exam to avoid delays. Your imaging studies and reports are kept on file at [facility] as part of your permanent medical record, and are available for your continuing care. Thank you for allowing us to help in meeting your health care needs. Sincerely, Dr. Doe Interpreting Radiologist [facility] (Additional imaging) [facility]05-21-2024 Miscellaneous Notes* Letter - Coordinator, Mammography - 11/27/2023 9:21 PM EDT November 28, 2023 PID: [id number] Crystal Thakur [address] [place] [address] Dear Ms. Thakur, Your recent breast imaging exam on 11/26/2023 showed a possible finding that requires additional imaging studies for a complete evaluation. Most such findings are probably benign (not cancer). If you have a healthcare provider who ordered/prescribed your screening mammogram: Please call [phone] or EXT: [phone] to schedule an appointment for your additional imaging (if youhave not already done so). If you DO NOT have a healthcare provider (ie you did not have an order/prescription for your screening mammogram): Please call to schedule an appointment for your additional imaging (if you have not already done so). You must have an order/prescription from your physician when calling to schedule your appointment. If your order/prescription is not electronic, you must bring the hard copy with you on the day of your exam to avoid delays. Your imaging studies and reports are kept on file at [facility] as part of your permanent medical record, and are available for your continuing care. Thank you for allowing us to help in meeting your health care needs. Sincerely, Dr. Doe Interpreting Radiologist [facility] (Additional imaging) documented in this encounterTr[facility]05-20-2024 History of Present illness Narrative* Olga Fleming RT(R) - 11/26/2023 1:00 PM EDT Radiology Service Progress Note PATIENT NAME: Crystal Thakur DATE OF SERVICE: November 26, 2023 TIME: 1:18 PM PATIENT IDENTITY VERIFICATION COMPLETED USING TWO (2) IDENTIFIERS: Name and Date of confirmedby patient verbally. FALL SCREENING: Has the patient had 2 falls in the last year or 1 fall with injury or currently using an Ambulatory Assistive Device (Walker, Cane, Wheelchair, Crutches, etc.)? No PATIENT GENDER DATA: Female. status: : No status: NO. PATIENT RELEVANT IMPLANT DATA REVIEWED: Yes PATIENT PRESENTS WITH AN IMPLANTABLE OR ATTACHED BUTTER GRADER: Yes Freestyle Hugh RADIOLOGY DEPARTMENT: MR; Exam(s) Completed: Upper MSK: Shoulder, left PERIPHERAL IV DATA: Not applicable SIGNED BY: RT Nuvia(R) November 26, 2023 1:18 PM documented in this encounterTr[facility]05-20-2024 History of Present illness Narrative* Yayo Oquendo Mammo Tech - 11/26/2023 10:50 AM EDT Radiology Service Progress Note PATIENT NAME: Crystal Thakur DATE OF SERVICE: November 26, 2023 TIME: 11:05 AM PATIENT IDENTITY VERIFICATION COMPLETED USING TWO (2) IDENTIFIERS: Name and Date of confirmedby patient verbally. FALL SCREENING: Has the patient had 2 falls in the last year or 1 fall with injury or currently using an Ambulatory Assistive Device (Walker, Cane, Wheelchair, Crutches, etc.)? No PATIENT GENDER DATA: Female. status: : No status: NO. PATIENT RELEVANT IMPLANT DATA REVIEWED: Not Applicable PATIENT PRESENTS WITH AN IMPLANTABLE OR ATTACHED BUTTER GRADER: No RADIOLOGY DEPARTMENT: Mammography PERIPHERAL IV DATA: Not applicable SIGNED BY: Anushka Castellanos November 26, 2023 11:05 AM documented in this encounterTr[facility]05-13-2024 Telephone encounter Note * Telephone Encounter - Jaskaran Quiroz APRN.CNP - 11/19/2023 9:53 AM EDT The following approved medication requests have been transmitted electronically. Requested Prescriptions Pending Prescriptions Disp Refills FREESTYLE HUGH 14 DAY SENSOR kit 2 Kit 5 Sig: apply NEW SENSOR EVERY 14 DAYS TO UPPER ARM Jaskaran Quiroz APRN.CNP [facility]05-13-2024 Miscellaneous Notes* Telephone Encounter - Jaskaran Quiroz APRN.CNP - 11/19/2023 9:53 AM EDT The following approved medication requests have been transmitted electronically. Requested Prescriptions Pending Prescriptions Disp Refills FREESTYLE HUGH 14 DAY SENSOR kit 2 Kit 5 Sig: apply NEW SENSOR EVERY 14 DAYS TO UPPER ARM Jaskaran Quiroz APRN.CNP documented in this encounterTr[facility]04-27-2024 Telephone encounter Note * Telephone Encounter - Gabbie Grady MD - 11/03/2023 10:50 AM EDT OK to refill as ordered Gabbie Grady MD [facility]04-27-2024 Miscellaneous Notes* Telephone Encounter - Gabbie Grady MD - 11/03/2023 10:50 AM EDT OK to refill as ordered Gabbie Grady MD * Telephone Encounter - Kinjal Mistry MA - 11/03/2023 9:45 AM EDT Patient has been identified by name and date of : Yes, Provider Gabbie Grady MD Date November 03, 2023 Time 9:45 AM Patient phones for refill(s): Requested Prescriptions Pending Prescriptions Disp Refills hydroCHLOROthiazide 25 mg tablet 90 tablet 3 Sig: Take 1 tablet by mouth once daily. Date of last office visit in primary care: 07/04/2023 Date of next office visit in primary care: none Please advise. Thank you. Kinjal Mistry MA. documented in this encounterTr[facility]04-27-2024 Telephone encounter Note * Telephone Encounter - Kinjal Mistry MA - 11/03/2023 9:45 AM EDT Patient has been identified by name and date of : Yes, Provider Gabbie Grady MD Date November 03, 2023 Time 9:45 AM Patient phones for refill(s): Requested Prescriptions Pending Prescriptions Disp Refills hydroCHLOROthiazide 25 mg tablet 90 tablet 3 Sig: Take 1 tablet by mouth once daily. Date of last office visit in primary care: 07/04/2023 Date of next office visit in primary care: none Please advise. Thank you. Kinjal Mistry MA. [facility]04-23-2024 NoteHNO ID: [id number] Author: WILMAR VIVAR MD Service: ? Author Type: Physician Type: Progress Notes Filed: 10/31/2023 10:44 Note Text: PAIN EVALUATION 10/24/2023 1205 Pain Level: 8 Pain Location: Shoulder-Left Description: Aching;Radiating;Shooting;Throbbing Duration Amount of Time: 3 Duration Units: Months Frequency: Intermittent Intervention/Comfort measure: Medication;Reposition;Relaxation;Cold;Exercise;Heat;Pillow support;Positioning;Splinting Comments: Pain is getting worse. Runs from my neck, back of shoulder around to upper arm. Encounter Diagnosis ICD-10-CM 1. Biceps tendonitis on left M75.22 MRI SHOULDER WO IVCON LEFT 2. Chronic left shoulder pain M25.512 MRI SHOULDER WO IVCON LEFT G89.29 Crystal Thakur presents today for evaluation of her left shoulder. She previously underwent surgery on her right shoulder performed by me in 2020 and is doing well with this. She had been seeing Dr. Soriano for management of left shoulder pain but unfortunately injections have stopped working for her. She presents today for evaluation of possible surgical options. I examined her left shoulder today. She has pain with overhead and rotational testing of the left shoulder. Range of motion is relatively well-maintained with 160 degrees of active elevation and side abduction. She has 60 degrees of internal and external rotation. There is pain but no weakness with Jacki maneuver. Atlantic's maneuver is very uncomfortable for her and there is giving way due to pain. Belly press test is strong. No external rotation weakness. I reviewed previous imaging of her shoulder from 2020 when she underwent an outside MRI. This shows no full-thickness tearing of her rotator cuff. There was concern for bicipital tendinitis at the time. PLAN: Today we discussed that she is having worsening pain in the left shoulder not responsive to conservative treatment measures. I recommended that she undergo repeat MRI to update this and we will evaluate this together and plan for likely surgical intervention based on the findings. iWlmar Vivar MD Shoulder AND Elbow Surgeon Department of Orthopaedic Surgery [facility]04-23-2024 History of Present illness Narrative* Wilmar Vivar MD - 10/30/2023 2:53 PM EDT Images from the original note were not included. PAIN EVALUATION 10/24/2023 1205 Pain Level: 8 Pain Location: Shoulder-Left Description: Aching;Radiating;Shooting;Throbbing Duration Amount of Time: 3 Duration Units: Months Frequency: Intermittent Intervention/Comfort measure: Medication;Reposition;Relaxation;Cold;Exercise;Heat;Pillow support;Pos itioning;Splinting Comments: Pain is getting worse. Runs from my neck, back of shoulder around to upper arm. Encounter Diagnosis ICD-10-CM 1. Biceps tendonitis on left M75.22 MRI SHOULDER WO IVCON LEFT 2. Chronic left shoulder pain M25.512 MRI SHOULDER WO IVCON LEFT G89.29 Crystal Ventura Eleazaremilifouzia presents today for evaluation of her left shoulder. She previously underwent surgery on her right shoulder performed by me in 2020 and is doing well with this. She had been seeing Dr. Soriano for management of left shoulder pain but unfortunately injections have stopped working for her. She presents today for evaluation of possible surgical options. I examined her left shoulder today. She has pain with overhead and rotational testing of the left shoulder. Range of motion is relatively well-maintained with 160 degrees of active elevation and sideabduction. She has 60 degrees of internal and external rotation. There is pain but no weakness withJobe maneuver. Atlantic's maneuver is very uncomfortable for her and there is giving way due to pain. Belly press test is strong. No external rotation weakness. I reviewed previous imaging of her shoulder from 2020 when she underwent an outside MRI. This showsno full-thickness tearing of her rotator cuff. There was concern for bicipital tendinitis at the time. PLAN: Today we discussed that she is having worsening pain in the left shoulder not responsive to conservative treatment measures. I recommended that she undergo repeat MRI to update this and we will evaluate this together and plan for likely surgical intervention based on the findings. Wilmar Vivar MD Shoulder & Elbow Surgeon Department of Orthopaedic Surgery [facility] documented in this encounterTr[facility]04-22-2024 Telephone encounter Note * Telephone Encounter - Gabbie Grady MD - 10/29/2023 2:28 PM EDT OK to refill as ordered Gabbie Grady MD [facility]04-22-2024 Miscellaneous Notes* Telephone Encounter - Gabbie Grady MD - 10/29/2023 2:28 PM EDT OK to refill as ordered Gabbie Grady MD * Telephone Encounter - Kati Lundy OCCA - 10/29/2023 11:29 AM EDT Patient has been identified by name and date of : Yes Patient phones for refill(s): Requested Prescriptions Pending Prescriptions Disp Refills lisinopril (ZESTRIL) 20 mg tablet 180 tablet 3 Sig: Take 2 tablets by mouth once daily. Date of last office visit in primary care: 07/04/2023 Date of next office visit in primary care: Visit date not found Please advise. Thank you. JESSICA Burciaga. documented in this encounterTr[facility]04-22-2024 Telephone encounter Note * Telephone Encounter - Kati Lundy OCCA - 10/29/2023 11:29 AM EDT Patient has been identified by name and date of : Yes Patient phones for refill(s): Requested Prescriptions Pending Prescriptions Disp Refills lisinopril (ZESTRIL) 20 mg tablet 180 tablet 3 Sig: Take 2 tablets by mouth once daily. Date of last office visit in primary care: 07/04/2023 Date of next office visit in primary care: Visit date not found Please advise. Thank you. JESSCIA Burciaga. [facility]03-18-2024 Miscellaneous Notes* Telephone Encounter - Jaskaran Quiroz APRN.CNP - 09/24/2023 10:15 AM EDT The following approved medication requests have been transmitted electronically. Requested Prescriptions Pending Prescriptions Disp Refills nadolol (CORGARD) 40 mg tablet 180 tablet 3 Sig: Take 1 tablet by mouth two times a day. Jaskaran Quiroz APRN.CNP * Telephone Encounter - Houston Peterson LPN - 09/24/2023 10:10 AM EDT Patient has been identified by name and date of : Yes Patient phones for refill(s): Requested Prescriptions Pending Prescriptions Disp Refills nadolol (CORGARD) 40 mg tablet 180 tablet 3 Sig: Take 1 tablet by mouth two times a day. Date of last office visit in primary care: 07/04/2023 Date of next office visit in primary care: Visit date not found Please advise. Thank you. Houston Peterson LPN. documented in this [facility]02-21-2024 Miscellaneous Notes* Telephone Encounter - Jaskaran Quiroz APRN.CNP - 08/29/2023 3:05 PM EST The following approved medication requests have been transmitted electronically. Requested Prescriptions Pending Prescriptions Disp Refills methocarbamol (ROBAXIN) 500 mg tablet 180 tablet 2 Sig: Take 2 tablets by mouth three times a day. As needed for pain Jaskaran Quiroz APRN.CNP * Telephone Encounter - Mari Pederson LPN - 08/29/2023 8:[address] [facility]-07/04/23 Labs-06/20/23 NOV-none Mari Pederson LPN documented in this [facility]02-21-2024 Miscellaneous Notes* Telephone Encounter - Jaskaran Quiroz APRN.CNP - 08/29/2023 3:04 PM EST The following approved medication requests have been transmitted electronically. Requested Prescriptions Pending Prescriptions Disp Refills amLODIPine (NORVASC) 10 mg tablet 30 tablet 11 Sig: Take 1 tablet by mouth once daily. Jaskaran Quiroz APRN.CNP * Telephone Encounter - Mari Pederson LPN - 08/29/2023 8:[address] [facility]-07/04/23 Labs-06/20/23 NOV- none Mari Pederson LPN documented in this [facility]11-25-2023 Miscellaneous Notes* Telephone Encounter - Gabbie Grady MD - 06/02/2023 10:58 AM EST OK to refill as ordered Gabbie Grady MD documented in this encounterTr[facility]11-16-2023 Miscellaneous Notes* Telephone Encounter - Vania Lancaster LPN - 05/24/2023 9:52 AM EST Pt notified of message & voiced understanding. Vania Lancaster LPN * Telephone Encounter - Cande Zacarias Ma - 05/24/2023 9:17 AM EST Called and left message on patients voicemail to return call to the office and ask to speak with a FM triage nurse. Cande Zacarias Ma * Telephone Encounter - Gabbie Grady MD - 05/24/2023 9:07 AM EST Lab orders added Nortriptyline refilled Gabbie Grady MD * Telephone Encounter - Isis Cardenas RN - 05/23/2023 3:19 PM EST Patient asking Dr. Grady for the following: Pt's next appt is 06/[address] Grady and has multiple labs ordered. Pt asking if 2 additional labs can be added since her Machine [facility] at [facility] has left. Asking to have CRP and Sed Rate added? Please call pt with update. Patient asking for nortriptyline be reordered. Today's request was denied by provider, stating pt overdue for yearly exam. Pt was last seen 12/21/22. Pt asking if Dr. Grady would place refill as pended? Please call patient with update. Isis Cardenas RN documented in this encounterTr[facility]10-16-2023 History of Present illness Narrative* Tom Soriano MD - 04/23/2023 4:00 PM EDTAssociated Order(s): Large Joint Arthro/Inj Post-Procedure Diagnose(s): Chronic left shoulder pain; Biceps tendonitis on left Tom Soriano MD Department of Orthopaedics Orthopaed[facility] [address] [facility] [address] Dept: [phone] Dept April 23, 2023 CHIEF COMPLAINT: Established Patient and Injections of the Left Shoulder HPI Patient here today for ultrasound guided injection into left biceps. ASSESSMENT: M25.512, G89.29 Chronic left shoulder pain (primary encounter diagnosis) M75.22 Biceps tendonitis on left PLAN: Ultrasound-guided left biceps sheath injection Ms. Crystal Thakur was advised as to contrast therapies and/or to take analgesics/anti-inflammatories as needed and all contraindications were reviewed. Large Joint Arthro/Inj Informed Consent Consent Obtained: Written [place] Protocol A moment to CARE was completed. SIGN IN Personnel directly involved with the procedure wore the appropriate PPE. Special Equipment: Yes Patient/Surrogate Stated/Verified: Patient name, Date of , Relevant allergies and Intended procedure TIME OUT Intended patient and procedure match the source document(s). Relevant labs, photos, and/or imaging studies have been reviewed. Correct side/site marked and visible. Medications required for procedure verified. No fire risk assessment and interventions applicable. No implant(s) inserted. 04/23/2023 4:37 PM The procedure site was prepped in the usual sterile fashion. Details:Musculoskeletal ultrasound was utilized to successfully localize placement of the injectionneedle at the appropriate site. Ultrasound images demonstrating local vasculature and demonstratinginjection of solution were saved. Medications: 3 mg betamethasone acetate-betamethasone sodium phosphate 6 mg/mL Anesthetics: 4 mL lidocaine (PF) 10 mg/mL (1 %) Outcome: Tolerated well, no immediate complications Post-injection instructions were reviewed with the patient and the patient voiced understanding of these instructions. SIGN OUT No instruments, equipment or retained foreign bodies applicable. Supporting Subjective Information Below: Past Surgical History: PAST SURGICAL HISTORY Procedure Laterality Date COLSC FLX W/RMVL OF TUMOR POLYP LESION SNARE TQ 01/14/2010 DILATION & CURETTAGE DX&/THER NONOBSTETRIC 2006 Dilation & curettage-HYPERPLASIA, likely will have hysterectomy within next year EGD TRANSORAL BIOPSY SINGLE/MULTIPLE 01/14/2010 EXC CYST/ABERRANT BREAST TISSUE OPEN 1/> LESION 01/03/2010 Left breast, benign FASCIECTOMY PLANTAR FASCIA PARTIAL SPX 1992 FOOT Left plantar fasciitis release HYSTERECTOMY HX 05/03/2020 TVH, uterosacral vaginal vault suspension, A/P repair IUD INSERTION (HYDRAULIC TESTER DEPT)_*FL 05/14/2008 Mirena, removed JOINT REPLACEMENT HX total right knee LIG/TRNSXJ FLP TUBE ABDL/VAG APPR UNI/BI 1987 Tubal ligation NOVASURE 01/2010 PAST SURGICAL HISTORY OF 1984 EXPLORATORY LAP PAST SURGICAL HISTORY OF 1992 BILAT LEG-VEIN STRIPPING PAST SURGICAL HISTORY OF 10/2007, 12/2007 Bilat leg-vein stripping PAST SURGICAL HISTORY OF Right 01/24/2021 Right bicep repair PAST SURGICAL HISTORY OF Right 2018 TKA REMOVE INTRAUTERINE DEVICE 2011 Expelled 3 weeks after insertion REPAIR INGUINAL HERNIA Bilateral 08/30/2022 laparoscopic repair with mesh ROTATOR CUFF REPAIR Right bicept reattachment RPR UMBILICAL HRNA 5 YRS/> REDUCIBLE 1993, 1989, 2007 Repaired 3 Times VAGINOSCOPY 09/25/2013 [facility] Medications: Current Outpatient Medications Medication Sig albuterol HFA (PROVENTIL HFA, VENTOLIN HFA) 90 mcg/actuation inhaler Inhale 2 Puffs as instructed every 4 hours as needed. amLODIPine (NORVASC) 10 mg tablet Take 1 tablet by mouth once daily. aspirin, enteric coated (ASPIR-LOW) 81 mg EC tablet Take 1 tablet by mouth once daily. benzonatate (TESSALON PERLE) 100 mg capsule Take 1 capsule by mouth three times daily as needed forcough. berberine/herbal complex no.18 (BERBERINE-HERBAL COMB NO.18 ORAL) Take by mouth. blood sugar diagnostic (TRUE METRIX GLUCOSE TEST STRIP) test strip Use 4-6 times daily to check blood sugar. Dx:E11.9 insulin:No calcium carbonate/vitamin D3 (CALCIUM WITH VITAMIN D ORAL) Take 1 tablet by mouth twice daily. 600 mg calcium with 1000mg vitamin D3 coenzyme Q10 (CO Q-10) 100 mg cap capsule Take 2 capsules by mouth once daily. FREESTYLE HUGH 14 DAY SENSOR kit apply NEW SENSOR EVERY 14 DAYS TO UPPER ARM hydroCHLOROthiazide 25 mg tablet Take 1 tablet by mouth once daily. ibuprofen (MOTRIN) 800 mg tablet Take 1 tablet by mouth every 6 hours as needed for pain. lancets (FREESTYLE LANCETS) 28 gauge misc Test blood sugar(s) one times daily. Dx: Type 2 DM - Controlled E11.9 Insulin: No lisinopril (ZESTRIL) 20 mg tablet Take 2 tablets by mouth once daily. loratadine (CLARITIN) 10 mg ORAL tablet Take 1 tablet by mouth once daily. (Patient taking differently: Take 10 mg by mouth as needed.) metFORMIN ER (GLUCOPHAGE XR) 500 mg 24 hr tablet Take 3 tablets by mouth daily with breakfast. methocarbamol (ROBAXIN) 500 mg tablet Take 2 tablets by mouth three times a day. As needed for pain Milk Thistle 150 mg cap Take 1 capsule by mouth once daily. (Patient not taking: Reported on 03/05/2023) nadolol (CORGARD) 40 mg tablet Take 1 tablet by mouth twice daily. nortriptyline (PAMELOR) 25 mg capsule Take 1 capsule by mouth daily at bedtime. nystatin (MYCOSTATIN) powder Apply 1 application to affected area as needed. omeprazole (PRILOSEC) 20 mg capsule Take 1 capsule by mouth daily before breakfast. 1/2 hr before meal. ondansetron (ZOFRAN) 4 mg tablet Take 1 tablet by mouth every 8 hours as needed. ondansetron (ZOFRAN) 4 mg tablet Take 1 tablet by mouth every 6 hours as needed. ursodiol (ACTIGALL) 300 mg capsule Take 300 mg by mouth twice daily. No current facility-administered medications for this visit. Allergies: Cymbalta [Duloxetine], Keflex [Cephalexin], Monosodium Glutamate (Msg), Oxycodone, Rabbit Dander, Splenda [Other], Huan's Wort, Atorvastatin, Crestor [Rosuvastatin], Gabapentin, Niacin, Niacinamide, Cats, Aspartame, Doxycycline, Erythromycin, Glutamic Acid, Latex, Sucralose, and Zithromax [Azithromycin] ROS: General (negative for fatigue, malaise, weight loss/gain) HEENT (negative for headache, earache, recent vision changes, sinus pain, sore throat) Respiratory (no recent shortness of breath, hemoptysis) CV (negative for chest tightness, palpitations) Musculoskeletal (see HPI) Psych (no depression, anxiety) Tom Soriano MD documented in this encounterTr[facility]10-16-2023 Miscellaneous Notes* Telephone Encounter - Jaskaran Quiroz APRN.CNP - 04/23/2023 12:31 PM EDT The following approved medication requests have been transmitted electronically. Requested Prescriptions Pending Prescriptions Disp Refills methocarbamol (ROBAXIN) 500 mg tablet 180 tablet 2 Sig: Take 2 tablets by mouth three times a day. As needed for pain Jaskaran Quiroz APRN.CNP * Telephone Encounter - Kati Lundy OCCA - 04/23/2023 12:22 PM EDT Patient has been identified by name and date of : Yes Patient phones for refill(s): Requested Prescriptions Pending Prescriptions Disp Refills methocarbamol (ROBAXIN) 500 mg tablet 180 tablet 2 Sig: Take 2 tablets by mouth three times a day. As needed for pain Date of last office visit in primary care: 12/21/2022 Date of next office visit in primary care: 06/22/2023 Last 2 Encounter Wt Readings: Date: Wt: 12/21/2022 88.9 kg (195 lb 14.4 oz) 10/24/2022 90.3 kg (199 lb) Please advise. Thank you. JESSICA Burciaga. documented in this encounterTr[facility]09-15-2023 History of Present illness Narrative* Erum Al RN - 03/23/2023 10:25 AM EDT Per Crystal Yi was provided with Pneumatic Walking boot, size Large, and instructed/educated in its application, wear, and care. All questions were answered, and patient was able to demonstrate competence with the necessary skills to utilize the above equipment. Patient signed [employer] Patient agreement. [employer] to bill patient's insurance for product. Erum Al RN * Cheng Mariscal - 03/23/2023 10:01 AM EDT Images from the original note were not included. Last saw pcp: 12/21/22 Subjective: This 63 year old female presents to clinic for diabetic foot check. Patient has the following complaints: pain to the lateral aspect of left foot. She states the pain has been present forabout 2 weeks. She denies any trauma. She also is requesting nail care. Patient admits to being diabetic for 8 years now. Patient +B/T/N in feet at this time. Patient -pain in legs when walking. No other pedal complaints at this time. No change in medications or medical history since last visit. PAIN EVALUATION 03/19/2023 1409 03/23/2023 0930 Pain Level: 6 7 Pain Location: Foot-Left Foot-Left Description: Aching;Sore;Throbbing Aching;Throbbing Duration Amount of Time: 2 2 Duration Units: Weeks Weeks Frequency: Intermittent Continuous Intervention/Comfort measure: Medication;Reposition;Cold;Positioning;Swaddling Relaxation;Cold Comments: Lateral Side of foot is painful, swollen and firm to touch. No injury, redness or heat totouch of area. Hurts more with length of time standing and walking. Sometimes it aches alot even when off my foot. 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 Abnormal Pap smear of cervix 09/11/2013 [facility], Seeing HYDRAULIC TESTER Allergic rhinitis Anemia, unspecified Due to heavy menstrual cycles Benign neoplasm of colon 08/2009 POLYPS Cervical high risk human papillomavirus (HPV) DNA test positive 09/18/2013 Cystocele, midline Diabetes mellitus type II, controlled (HCC) metformin Diverticulosis Esophageal reflux 1999 RESOLVED due to diet change Esophagitis, unspecified Essential hypertension, benign 1998 Fatty liver Fibromuscular dysplasia (HCC) renal and carotid arteries; follows with [facility] Fibromyalgia Giant cell arteritis (HCC) 2020 Heart palpitations nadalol helps Incomplete uterovaginal prolapse Obesity, unspecified Osteoarthrosis, unspecified whether generalized or localized, lower leg bilateral knees > hips Other and unspecified hyperlipidemia 1998 has been on meds in past, had tolerated Lipitor but afraid of statins Phlebitis and thrombophlebitis of superficial vessels of lower extremities 3rd child 1985, right leg Renal stones Varicose veins of other sites 2006 h/o varicose veins onset with first age of 20, had total of 4 pregnancies last was twins.First Vein stripping right leg surgery was 1992 at [facility], Second surgery 1993 to left leg (h/o hernia repair reason for one leg at a time). Here for possible laser surgery to remove lumpy and rope type veins. Current Outpatient Medications Medication Sig berberine/herbal complex no.18 (BERBERINE-HERBAL COMB NO.18 ORAL) Take by mouth. lisinopril (ZESTRIL) 20 mg tablet Take 2 tablets by mouth once daily. metFORMIN ER (GLUCOPHAGE XR) 500 mg 24 hr tablet Take 3 tablets by mouth daily with breakfast. omeprazole (PRILOSEC) 20 mg capsule Take 1 capsule by mouth daily before breakfast. 1/2 hr before meal. nadolol (CORGARD) 40 mg tablet Take 1 tablet by mouth twice daily. hydroCHLOROthiazide 25 mg tablet Take 1 tablet by mouth once daily. ibuprofen (MOTRIN) 800 mg tablet Take 1 tablet by mouth every 6 hours as needed for pain. albuterol HFA (PROVENTIL HFA, VENTOLIN HFA) 90 mcg/actuation inhaler Inhale 2 Puffs as instructed every 4 hours as needed. nystatin (MYCOSTATIN) powder Apply 1 application to affected area as needed. Dial a Dealer HUGH 14 DAY SENSOR kit apply NEW SENSOR EVERY 14 DAYS TO UPPER ARM methocarbamol (ROBAXIN) 500 mg tablet Take 2 tablets by mouth three times daily. As needed for pain nortriptyline (PAMELOR) 25 mg capsule Take 1 capsule by mouth daily at bedtime. coenzyme Q10 (CO Q-10) 100 mg cap capsule Take 2 capsules by mouth once daily. benzonatate (TESSALON PERLE) 100 mg capsule Take 1 capsule by mouth three times daily as needed forcough. blood sugar diagnostic (TRUE METRIX GLUCOSE TEST STRIP) test strip Use 4-6 times daily to check blood sugar. Dx:E11.9 insulin:No amLODIPine (NORVASC) 10 mg tablet Take 1 tablet by mouth once daily. ondansetron (ZOFRAN) 4 mg tablet Take 1 tablet by mouth every 6 hours as needed. ondansetron (ZOFRAN) 4 mg tablet Take 1 tablet by mouth every 8 hours as needed. calcium carbonate/vitamin D3 (CALCIUM WITH VITAMIN D ORAL) Take 1 tablet by mouth twice daily. 600 mg calcium with 1000mg vitamin D3 aspirin, enteric coated (ASPIR-LOW) 81 mg EC tablet Take 1 tablet by mouth once daily. ursodiol (ACTIGALL) 300 mg capsule Take 300 mg by mouth twice daily. lancets (FREESTYLE LANCETS) 28 gauge misc Test blood sugar(s) one times daily. Dx: Type 2 DM - Controlled E11.9 Insulin: No loratadine (CLARITIN) 10 mg ORAL tablet Take 1 tablet by mouth once daily. (Patient taking differently: Take 10 mg by mouth as needed.) Milk Thistle 150 mg cap Take 1 capsule by mouth once daily. (Patient not taking: Reported on 03/05/2023) No current facility-administered medications for this visit. ALLERGIES Allergen Reactions Cymbalta [Duloxetin* Other: See Comments Intolerance, elevated BP, pulse Keflex [Cephalexin] GI Upset Bloating and tears up stomach Monosodium Glutamat* Other: See Comments Severe headache Oxycodone Other: See Comments Heart palpitations Rabbit Dander Shortness of Breath Splenda [Other] Other: See Comments Severe headaches Huan's Wort Other: See Comments Elevated BP Atorvastatin Myalgia Muscle Aches Crestor [Rosuvastat* Myalgia Gabapentin Other: See Comments Depression, suicidal thoughts Niacin Intolerance Facial numbness Niacinamide Other: See Comments Facial Numbness Cats Shortness of Breath Aspartame Other: See Comments Severe headache Doxycycline GI Upset Erythromycin GI Upset Glutamic Acid Unknown Patient is not familiar with this product Latex Itching Redness Sucralose Unknown Zithromax [Azithrom* GI Upset GI PAST SURGICAL HISTORY Procedure Laterality Date COLSC FLX W/RMVL OF TUMOR POLYP LESION SNARE TQ 01/14/2010 DILATION & CURETTAGE DX&/THER NONOBSTETRIC 2006 Dilation & curettage-HYPERPLASIA, likely will have hysterectomy within next year EGD TRANSORAL BIOPSY SINGLE/MULTIPLE 01/14/2010 EXC CYST/ABERRANT BREAST TISSUE OPEN 1/> LESION 01/03/2010 Left breast, benign FASCIECTOMY PLANTAR FASCIA PARTIAL SPX 1992 FOOT Left 1989' plantar fasciitis release HYSTERECTOMY HX 05/03/2020 TVH, uterosacral vaginal vault suspension, A/P repair IUD INSERTION (HYDRAULIC TESTER DEPT)_*FL 05/14/2008 Mirena, removed JOINT REPLACEMENT HX total right knee LIG/TRNSXJ FLP TUBE ABDL/VAG APPR UNI/BI 1988 Tubal ligation NOVASURE 01/2010 PAST SURGICAL HISTORY OF 1983 EXPLORATORY LAP PAST SURGICAL HISTORY OF 1992 BILAT LEG-VEIN STRIPPING PAST SURGICAL HISTORY OF 10/2007, 12/2007 Bilat leg-vein stripping PAST SURGICAL HISTORY OF Right 01/24/2021 Right bicep repair PAST SURGICAL HISTORY OF Right 2018 TKA REMOVE INTRAUTERINE DEVICE 2011 Expelled 3 weeks after insertion REPAIR INGUINAL HERNIA Bilateral 08/30/2022 laparoscopic repair with mesh ROTATOR CUFF REPAIR Right bicept reattachment RPR UMBILICAL HRNA 5 YRS/> REDUCIBLE 1993, 1989, 2007 Repaired 3 Times VAGINOSCOPY 09/25/2013 [facility] FAMILY HISTORY Problem Relation Age of Onset Lipids Mother High Cholesterol Hypertension Mother Osteoporosis Mother Arthritis Mother Cataract Mother resolved with surgery other (Other) Mother Meniere's Skin Cancer Mother Psychiatry Father depression, committed suicide age 49 Osteoporosis Maternal Grandmother Thyroid Maternal Grandmother Cancer Maternal Grandfather leukemia Heart Maternal Grandfather Alzheimer's Disease Paternal Grandmother Thyroid Daughter Strabismus Daughter other (turners) Daughter other (aortic stenosis) Daughter Thyroid Daughter other (celiac disease) Daughter other (Fibromyalgia) Daughter other (MVP) Daughter Thyroid Daughter other (MVP) Daughter Hypertension Son other (hypogonadism) Son other (osteoarthritis) Son other (IBS) Son Diabetes Paternal Aunt Anesthesia Problems No Family History Social History Tobacco Use Smoking status: Former Packs/day: 1.00 Years: 32.00 Additional pack years: 0.00 Total pack years: 32.00 Types: Cigarettes Quit date: 03/14/2014 Years since quittin.0 Smokeless tobacco: Never Tobacco comments: occasional Vaping Use Vaping Use: Never used Substance Use Topics Alcohol use: Yes Comment: rarely Drug use: No REVIEW OF SYSTEMS GENERAL: Negative for Malaise, significant weight loss, fever RESPIRATORY: Negative for cough, wheezing and shortness of breath CARDIOVASCULAR: Negative for chest pain, leg swelling and palpitations GI: Negative for abdominal discomfort, blood in stools or black stools and change in bowel habits : Negative for dysuria, frequency and incontinence MUSCULOSKELETAL: Negative for joint pain or swelling, back pain, and muscle pain. SKIN: Negative for lesions, rash, and itching. HEMATOLOGY/LYMPHOLOGY Negative for prolonged bleeding, bruising easily, and swollen nodes. ENDOCRINE: Negative for cold or heat intolerance, polyuria, polydipsia and goiter. NEURO: negative The remainder of the review of systems is noncontributory. Objective: Patient presents to clinic ambulating in [facility] Constitutional: Pt is a well developed 63 year old female who is alert, oriented, cooperative and in no apparent distress. Eyes: Following during examination. No redness or drainage. Respiratory: RR normal and nonlabored. Even breathing. No evidence of distress. Psychology: Patient is engaged during conversation. Normal affect and mood. Does not appear depressed or anxious. Vasc: DP and PT pulses are palpable bilateral. CFT is less than 5 seconds bilateral. Skin temperature is warm to warm proximal to distal bilateral. There is mild edema or varicosities noted. Hair growth present. Neuro: Protective sensation is intact to the foot and toes when tested with the 5.07 SWM bilateral.Vibratory sensation is decreased at the hallux bilateral. + Significant neurological defecits. Derm: Inspection and palpation performed. Nails 1-5 b/l are painful, discolored- yellow, thick, crumbly, dystrophic and with subungal debris. Skin is of normal turgor and texture. Hyperkeratosis notedto not present. NO ulcerations, scars, verruca or other lesions noted. Ortho: Ankle joint DF is full with the knee extended and full with knee flexed. No pain or crepitusnoted. STJ, MTJ ROM are full and free of pain or crepitus. Muscle strength is 5/5 for dorsiflexors,plantarflexors, inverters, everters. Patient has pain to the lateral aspect of left 5th metatarsal base Assessment: (E11.49) Other diabetic neurological complication associated with type 2 diabetes mellitus (HCC) (primary encounter diagnosis) (B35.1) Onychomycosis (M79.675) Pain in toe of left foot (M79.674) Pain in toe of right foot (L85.9) Hyperkeratosis (M79.672) Left foot pain Plan: 1. Patient was seen and evaluated. 2. Patient was instructed on the continued importance of diabetic foot care along with proper diet and keeping their blood sugar under control to prevent complications. Instructions given both oral and written. 3. Toenails 1-5 b/l debrided in length and thickness 4. Callus reduced to plantar aspect of b/l hallux with dremmel. Due to diabetes, presence of decreased sensation and pre-ulcerative callus, will order diabetic shoes. 5. Discussed left foot pain along 5th metatarsal. Will get xray to evaluate for any possible underlying bone injury. Will place her in pneumatic boot as precaution. Discussed risk of dvt while in boot OLIMPIA Garcia DPM * Cecy Kim - 03/23/2023 9:27 AM EDT Patient presents with: Left Foot - Established Patient, Pain: Medial foot pain and swelling ongoing 2 weeks. No injury noted. Nail care and foot exam Right Foot - Established Patient: Nail care and foot exam Patient reports ongoing pain that increases with activity. She denies injury. AMB ROOMING INTAKE FLOWSHEET DATA Pain Pain Level: 7 Pain Location: Foot-Left Description: Aching, Throbbing Duration Amount of Time: 2 Duration Units: Weeks Frequency: Continuous Intervention/Comfort measure: Relaxation, Cold Comments: Lateral Side of foot is painful, swollen and firm to touch. No injury, redness or heat totouch of area. Hurts more with length of time standing and walking. Sometimes it aches alot even when off my foot. [facility] Instructions* Patient Instructions* Cheng Mariscal - 03/23/2023 10:15 AM EDT Diabetes Foot Care Instructions When you have diabetes, proper foot care is very important. Poor foot care may lead to amputation of a foot or leg. As a person with diabetes, you are more vulnerable to foot problems, because diabetes can damage your nerves and reduce blood flow to your feet. Here are some diabetes foot care tips to follow: Wash and Dry Your Feet Daily Use mild soaps Use warm water Pat your skin dry; do not rub. Thoroughly dry your feet. After washing, use lotion on your feet to prevent cracking. Do not put lotion between your toes. Examine Your Feet Each Day Check the tops and bottoms of your feet. Have someone else look at your feet if you cannot see them. Check for dry, cracked skin. Look for blisters, cuts, scratches, or other sores. Check for redness, increased warmth, or tenderness when touching any area of your feet. Check for ingrown toenails, corns, and calluses. If you get a blister or sore from your shoes, do not "pop" it. Apply a bandage and wear a differentpair of shoes. Take Care of Your Toenails Cut toenails after bathing, when they are soft. Cut toenails straight across and smooth with a nail file. Avoid cutting into the corners of toes. Do not cut cuticles. If you have neuropathy (or decreased sensation in your feet) a marine railway operator should always cut your toenails. Be Careful When Exercising Walk and exercise in comfortable shoes. Do not exercise when you have open sores on your feet. Protect Your Feet With Shoes and Socks Never go barefoot. Always protect your feet by wearing shoes or hard-soled slippers or footwear. Avoid shoes with high heels and pointed toes. Avoid shoes that expose your toes or heels (such as open-toed shoes or sandals). These types of shoes increase your risk for injury and potential infections. Try on new footwear with the type of socks you usually wear. Do not wear new shoes for more than an hour at a time. Change your socks daily. Look and feel inside your shoes before putting them on to make sure there are no foreign objects orrough areas. Avoid tight socks. Wear natural-fiber socks (cotton, wool, or a cotton-wool blend). Wear special shoes if your health care provider recommends them. Wear shoes/boots that will protect your feet from various weather conditions (cold, moisture, etc.). Make sure your shoes fit properly. If you have neuropathy (nerve damage), you may not notice that your shoes are too tight. Perform the "footwear test" described below. Footwear Test Use this simple test to see if your shoes fit correctly: Stand on a piece of paper. (Make sure you are standing and not sitting, because your foot changes shape when you stand.) Trace the outline of your foot. Trace the outline of your shoe. Compare the tracings: Is the shoe too narrow? Is your foot crammed into the shoe? The shoe should be at least 1/2 inch longer than your longest toe and as wide as your foot. Proper Shoe Choices The following types of shoes are best for people with diabetes Closed toes and heels Leather uppers without a seam inside At least 1/2 inch extra space at the end of your longest toe Inside of shoe should be soft with no rough areas Outer sole should be made of stiff material Shoes should be at least as wide as your feet Tips for Foot Care in Diabetes Don't wait to treat a minor foot problem if you have diabetes. Follow your health care provider's guidelines and first aid guidelines. Report foot injuries and infections to your health care provider immediately. Check water temperature with your elbow, not your foot. Do not use a heating pad on your feet. Do not cross your legs. Do not self-treat your corns, calluses, or other foot problems. Go to your health care provider or marine railway operator to treat these conditions. [facility] History of Present illness Narrative* Tom Soriano MD - 03/05/2023 11:54 AM EDTAssociated Order(s): Large Joint Arthro/Inj: L subacromial bursa Post-Procedure Diagnose(s): Chronic left shoulder pain; Nontraumatic incomplete tear of left rotator cuff Tom Soriano MD Department of Orthopaedics [facility] [address] [facility] [address] Dept: [phone] Dept March 05, 2023 CHIEF COMPLAINT: Established Patient, Pain, and Injections of the Left Shoulder (18 weeks post L shoulder impingement syndrome with injection given. Would like another injection) HPI Patient presents with: Left Shoulder - Established Patient, Pain, Injections: 18 weeks post L shoulder impingement syndrome with injection given. Would like another injection Patient reports constant pain that increases with activity. She reports relief for 3 months with the previous injection. AMB ROOMING INTAKE FLOWSHEET DATA Pain Pain Level: 8 Pain Location: Shoulder-Left Description: Sharp, Throbbing, Aching Duration Amount of Time: 2 Duration Units: Years Frequency: Continuous Intervention/Comfort measure: Medication, Reposition, Cold Comments: Gradually getting worse over the past 6 weeks. ASSESSMENT: M25.512, G89.29 Chronic left shoulder pain (primary encounter diagnosis) M75.112 Nontraumatic incomplete tear of left rotator cuff PLAN: Repeat injection, left shoulder. OBJECTIVE: Ms. Crystal Thakur is a pleasant 62 year old in no apparent distress. Gen:LMP 04/17/2016 nl development, non obese, no deformities ENT: Normocephalic, normal hearing, moist mucosa CV: Pulses:Radial= 2+ and symmetric, capillary refill < 2 secs, no peripheral edema/varicosities Skin: no rash, bruising or lesions. Good turgor. Psych: cooperative and appropriate, alert and oriented x 3, good mood and affect. Musculoskeletal: Stable exam Large Joint Arthro/Inj: L subacromial bursa Informed Consent Consent Obtained: Verbal [place] Protocol A moment to CARE was completed. SIGN IN Sign in communication not applicable due to emergent procedure. Personnel directly involved with the procedure wore the appropriate PPE. Special Equipment: N/A Patient/Surrogate Stated/Verified: Patient name, Date of , Relevant allergies and Intended procedure TIME OUT Intended patient and procedure match the source document(s). Consent documented and matches the intended procedure. Relevant labs, photos, and/or imaging studies have been reviewed. Correct side/site marked and visible. Medications required for procedure verified. No fire risk assessment and interventions applicable. No implant(s) inserted. 03/05/2023 12:24 PM The procedure site was prepped in the usual sterile fashion. Site: L subacromial bursa Medications: 6 mg betamethasone acetate-betamethasone sodium phosphate 6 mg/mL Anesthetics: 4 mL lidocaine (PF) 10 mg/mL (1 %) Outcome: Tolerated well, no immediate complications Post-injection instructions were reviewed with the patient and the patient voiced understanding of these instructions. SIGN OUT No instruments, equipment or retained foreign bodies applicable. Supporting Subjective Information Below: Past Surgical History: PAST SURGICAL HISTORY Procedure Laterality Date COLSC FLX W/RMVL OF TUMOR POLYP LESION SNARE TQ 01/14/2010 DILATION & CURETTAGE DX&/THER NONOBSTETRIC 2005 Dilation & curettage-HYPERPLASIA, likely will have hysterectomy within next year EGD TRANSORAL BIOPSY SINGLE/MULTIPLE 01/14/2010 EXC CYST/ABERRANT BREAST TISSUE OPEN 1/> LESION 01/03/2010 Left breast, benign FASCIECTOMY PLANTAR FASCIA PARTIAL SPX 1992 FOOT Left 1989' plantar fasciitis release HYSTERECTOMY HX 05/03/2020 TVH, uterosacral vaginal vault suspension, A/P repair IUD INSERTION (HYDRAULIC TESTER DEPT)_*FL 05/14/2008 Mirena, removed JOINT REPLACEMENT HX total right knee LIG/TRNSXJ FLP TUBE ABDL/VAG APPR UNI/BI 1987 Tubal ligation NOVASURE 01/2010 PAST SURGICAL HISTORY OF 1984 EXPLORATORY LAP PAST SURGICAL HISTORY OF 1992 BILAT LEG-VEIN STRIPPING PAST SURGICAL HISTORY OF 10/2007, 12/2007 Bilat leg-vein stripping PAST SURGICAL HISTORY OF Right 01/24/2021 Right bicep repair PAST SURGICAL HISTORY OF Right 2018 TKA REMOVE INTRAUTERINE DEVICE 2011 Expelled 3 weeks after insertion REPAIR INGUINAL HERNIA Bilateral 08/30/2022 laparoscopic repair with mesh ROTATOR CUFF REPAIR Right bicept reattachment RPR UMBILICAL HRNA 5 YRS/> REDUCIBLE 1993, 1989, 2007 Repaired 3 Times VAGINOSCOPY 09/25/2013 [facility] Medications: Current Outpatient Medications Medication Sig berberine/herbal complex no.18 (BERBERINE-HERBAL COMB NO.18 ORAL) Take by mouth. lisinopril (ZESTRIL) 20 mg tablet Take 2 tablets by mouth once daily. metFORMIN ER (GLUCOPHAGE XR) 500 mg 24 hr tablet Take 3 tablets by mouth daily with breakfast. omeprazole (PRILOSEC) 20 mg capsule Take 1 capsule by mouth daily before breakfast. 1/2 hr before meal. nadolol (CORGARD) 40 mg tablet Take 1 tablet by mouth twice daily. hydroCHLOROthiazide 25 mg tablet Take 1 tablet by mouth once daily. ibuprofen (MOTRIN) 800 mg tablet Take 1 tablet by mouth every 6 hours as needed for pain. albuterol HFA (PROVENTIL HFA, VENTOLIN HFA) 90 mcg/actuation inhaler Inhale 2 Puffs as instructed every 4 hours as needed. nystatin (MYCOSTATIN) powder Apply 1 application to affected area as needed. FREESTYLE HUGH 14 DAY SENSOR kit apply NEW SENSOR EVERY 14 DAYS TO UPPER ARM methocarbamol (ROBAXIN) 500 mg tablet Take 2 tablets by mouth three times daily. As needed for pain nortriptyline (PAMELOR) 25 mg capsule Take 1 capsule by mouth daily at bedtime. coenzyme Q10 (CO Q-10) 100 mg cap capsule Take 2 capsules by mouth once daily. benzonatate (TESSALON PERLE) 100 mg capsule Take 1 capsule by mouth three times daily as needed forcough. blood sugar diagnostic (TRUE METRIX GLUCOSE TEST STRIP) test strip Use 4-6 times daily to check blood sugar. Dx:E11.9 insulin:No amLODIPine (NORVASC) 10 mg tablet Take 1 tablet by mouth once daily. ondansetron (ZOFRAN) 4 mg tablet Take 1 tablet by mouth every 8 hours as needed. calcium carbonate/vitamin D3 (CALCIUM WITH VITAMIN D ORAL) Take 1 tablet by mouth twice daily. 600 mg calcium with 1000mg vitamin D3 aspirin, enteric coated (ASPIR-LOW) 81 mg EC tablet Take 1 tablet by mouth once daily. ursodiol (ACTIGALL) 300 mg capsule Take 300 mg by mouth twice daily. lancets (FREESTYLE LANCETS) 28 gauge [facility] Test blood sugar(s) one times daily. Dx: Type 2 DM - Controlled E11.9 Insulin: No loratadine (CLARITIN) 10 mg ORAL tablet Take 1 tablet by mouth once daily. (Patient taking differently: Take 10 mg by mouth as needed.) Milk Thistle 150 mg cap Take 1 capsule by mouth once daily. (Patient not taking: Reported on 03/05/2023) ondansetron (ZOFRAN) 4 mg tablet Take 1 tablet by mouth every 6 hours as needed. No current facility-administered medications for this visit. Allergies: Cymbalta [Duloxetine], Keflex [Cephalexin], Monosodium Glutamate (Msg), Oxycodone, Rabbit Dander, Splenda [Other], [place]'s Wort, Atorvastatin, Crestor [Rosuvastatin], Gabapentin, Niacin, Niacinamide, Cats, Aspartame, Doxycycline, Erythromycin, Glutamic Acid, Latex, Sucralose, and Zithromax [Azithromycin] ROS: General (negative for fatigue, malaise, weight loss/gain) HEENT (negative for headache, earache, recent vision changes, sinus pain, sore throat) Respiratory (no recent shortness of breath, hemoptysis) CV (negative for chest tightness, palpitations) Musculoskeletal (see HPI) Psych (no depression, anxiety) Tom Soriano MD [facility] History of Present illness Narrative* Gabbie Grady MD - 12/21/2022 1:20 PM EDT Chief Complaint Patient presents with: Physical HPI Crystal Thakur is a 62 year old female who presents here today for a Wellness exam. Pt here today for a Wellness Exam. Has been busy working in her flower garden and vegetable garden.She has chickens that she does not eat but does eat the eggs. She has 10 chickens, has one chicken as old as 7 years old. Gets 4-8 eggs a day. She shares with her family. Follow[facility] with an [facility] provider [facility] at [facility]. HM: depression screening; denies feeling depressed or hopeless. Depression screening tool completedand reviewed. Based on score and interview, patient is not at risk for depression. Screening tool discussed with patient, and I recommended no further intervention at this time. Declined Shingles vaccine and Pneumonia vaccine at this time due to her autoimmune disease. She hashad 2 covid vaccines but has not had the booster due to having issues after getting the covid vaccines due to her autoimmune issues. Denies any stomach, bowel or urinary issues. HTN: Checks BP at home, denies any chest pain, sob or dizziness. On current regimen of Nadolol 40 mg bid, Lisinopril 20 mg 2 tabs daily, Norvasc 10 mg once daily and HCTZ 25 mg daily. Lipids: Tries to watch diet. She tries to stay active in the summer months, is always working. Admits in the winter she doesn't get as much exercise. Was on Zetia for cholesterol control but she stopped taking it due to her other health issues. She tries to keep to a low carb diet, limit sugar but admits she does like meat, states she can not live without meat. Eats fresh eggs from her own chickens. She states that high triglycerides is common in her family, her mother, and both her children have it. DM: Has Hugh, checks sugars daily with FBS running 100-110 and after eating 160. Has a few lows down to 70 in the night but does not feel bad or have any hypoglycemic sx. Has occ spikes with sugars to 180-190 for no reason at times. Does have some neuropathy symptoms, no longer follows with Dr. Mariscal. She was getting her nails trimmed by Dr. Mariscal's office. On current regimen of Metformin 1 pill BID. Follows with [facility]. Fibro: [facility], chronic pain. Takes Ibuprofen 600 mg 1 tab po every 6 hours and Robaxin 500 mg 2 tabs po TID. Has tried CBD gummies in the past. Fatigue: She has been dealing with some fatigue for the last 1-2 weeks. Had thyroid checked. She stopped taking her B12 supplement as result was on the high end of normal. Memory: worried about her memory, feels it is changing. FHx grandmother had Alzheimer's. She statesthat she is misplacing things, lost both her credit card and debit card, almost forgot to close thefreezer door today, forgetting what she went into a room for. At one time her son who lives with her pulled into the drive and she didn't know who he was for a few minutes. She states she takes care of her mother and is very patient with her but had an episode where she became very upset and stormed off while talking to her mother. She is trying to focus on her diet. She is looking into fish oil,she does not like fresh fish but does eat canned tuna. Rheum: Hx of GCA. Previously took Prednisone; has been off for 9 months and doing well.. Takes Nortriptyline 25 mg daily. Past medical history, appointments, medications, allergies reviewed. 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; follows with [facility] Fibromyalgia Giant cell arteritis (HCC) 2020 Heart palpitations nadalol helps Incomplete uterovaginal prolapse Obesity, unspecified Osteoarthrosis, unspecified whether generalized or localized, lower leg bilateral knees > hips Other and unspecified hyperlipidemia 1998 has been on meds in past, had tolerated Lipitor but afraid of statins Phlebitis and thrombophlebitis of superficial vessels of lower extremities 3rd child 1985, right leg Renal stones Varicose veins of other sites 2006 h/o varicose veins onset with first age of 20, had total of 4 pregnancies last was twins.First Vein stripping right leg surgery was 1992 at [facility], Second surgery 1993 to left leg (h/o hernia repair reason for one leg at a time). Here for possible laser surgery to remove lumpy and rope type veins. Previous Surgical History PAST SURGICAL HISTORY Procedure Laterality Date COLSC FLX W/RMVL OF TUMOR POLYP LESION SNARE TQ 01/14/2010 DILATION & CURETTAGE DX&/THER NONOBSTETRIC 2006 Dilation & curettage-HYPERPLASIA, likely will have hysterectomy within next year EGD TRANSORAL BIOPSY SINGLE/MULTIPLE 01/14/2010 EXC CYST/ABERRANT BREAST TISSUE OPEN 1/> LESION 01/03/2010 Left breast, benign FASCIECTOMY PLANTAR FASCIA PARTIAL SPX 1992 FOOT Left 1989' plantar fasciitis release HYSTERECTOMY HX 05/03/2020 TV[facility], uterosacral vaginal vault suspension, A/P repair IUD INSERTION (HYDRAULIC TESTER DEPT)_*FL 05/14/2008 Mirena, removed JOINT REPLACEMENT HX total right knee LIG/TRNSXJ FLP TUBE ABDL/VAG APPR UNI/BI 1987 Tubal ligation NOVASURE 01/2010 PAST SURGICAL HISTORY OF 1984 EXPLORATORY LAP PAST SURGICAL HISTORY OF 1992 BILAT LEG-VEIN STRIPPING PAST SURGICAL HISTORY OF 10/2007, 12/2007 Bilat leg-vein stripping PAST SURGICAL HISTORY OF Right 01/24/2021 Right bicep repair PAST SURGICAL HISTORY OF Right 2018 TKA REMOVE INTRAUTERINE DEVICE 2012 Expelled 3 weeks after insertion REPAIR INGUINAL HERNIA Bilateral 08/30/2022 laparoscopic repair with mesh ROTATOR CUFF REPAIR Right bicept reattachment RPR UMBILICAL HRNA 5 YRS/> REDUCIBLE 1993, 1989, 2007 Repaired 3 Times VAGINOSCOPY 09/25/2013 LSIL Family History FAMILY HISTORY Problem Relation Age of Onset Lipids Mother High Cholesterol Hypertension Mother Osteoporosis Mother Arthritis Mother Cataract Mother resolved with surgery other (Other) Mother Meniere's Skin Cancer Mother Psychiatry Father depression, committed suicide age 49 Osteoporosis Maternal Grandmother Thyroid Maternal Grandmother Cancer Maternal Grandfather leukemia Heart Maternal Grandfather Alzheimer's Disease Paternal Grandmother Thyroid Daughter Strabismus Daughter other (turners) Daughter other (aortic stenosis) Daughter Thyroid Daughter other (celiac disease) Daughter other (Fibromyalgia) Daughter other (MVP) Daughter Thyroid Daughter other (MVP) Daughter Hypertension Son other (hypogonadism) Son other (osteoarthritis) Son other (IBS) Son Diabetes Paternal Aunt Anesthesia Problems No Family History Patient Allergies ALLERGIES Allergen Reactions Cymbalta [Duloxetin* Other: See Comments Intolerance, elevated BP, pulse Keflex [Cephalexin] GI Upset Bloating and tears up stomach Monosodium Glutamat* Other: See Comments Severe headache Oxycodone Other: See Comments Heart palpitations Rabbit Dander Shortness of Breath Splenda [Other] Other: See Comments Severe headaches Huan's Wort Other: See Comments Elevated BP Atorvastatin Myalgia Muscle Aches Crestor [Rosuvastat* Myalgia Gabapentin Other: See Comments Depression, suicidal thoughts Niacin Intolerance Facial numbness Niacinamide Other: See Comments Facial Numbness Cats Shortness of Breath Aspartame Other: See Comments Severe headache Doxycycline GI Upset Erythromycin GI Upset Glutamic Acid Unknown Patient is not familiar with this product Latex Itching Redness Sucralose Unknown Zithromax [Azithrom* GI Upset GI Current Medications Current Outpatient Medications on File Prior to Visit Medication Sig methocarbamol (ROBAXIN) 500 mg tablet Take 2 tablets by mouth three times daily. As needed for pain nortriptyline (PAMELOR) 25 mg capsule Take 1 capsule by mouth daily at bedtime. lisinopril (ZESTRIL) 20 mg tablet take 2 tablets by mouth once daily metFORMIN ER (GLUCOPHAGE XR) 500 mg 24 hr tablet Take 3 tablets by mouth daily with breakfast. coenzyme Q10 (CO Q-10) 100 mg cap capsule Take 2 capsules by mouth once daily. benzonatate (TESSALON PERLE) 100 mg capsule Take 1 capsule by mouth three times daily as needed forcough. blood sugar diagnostic (TRUE METRIX GLUCOSE TEST STRIP) test strip Use 4-6 times daily to check blood sugar. Dx:E11.9 insulin:No amLODIPine (NORVASC) 10 mg tablet Take 1 tablet by mouth once daily. ondansetron (ZOFRAN) 4 mg tablet Take 1 tablet by mouth every 6 hours as needed. omeprazole (PRILOSEC) 20 mg capsule Take 1 capsule by mouth daily before breakfast. 1/2 hr before meal. Dial a Dealer HUGH 14 DAY SENSOR kit apply NEW SENSOR EVERY 14 DAYS TO UPPER ARM nadolol (CORGARD) 40 mg tablet Take 1 tablet by mouth twice daily. hydroCHLOROthiazide (HYDRODIURIL, ESIDRIX) 25 mg tablet Take 1 tablet by mouth once daily. ibuprofen (MOTRIN) 800 mg tablet Take 1 tablet by mouth every 6 hours as needed for pain. ondansetron (ZOFRAN) 4 mg tablet Take 1 tablet by mouth every 8 hours as needed. lactobacillus acidophilus 100 mg (1 billion cell) cap(s) Take 1 capsule by mouth once daily. calcium carbonate/vitamin D3 (CALCIUM WITH VITAMIN D ORAL) Take 1 tablet by mouth twice daily. 600 mg calcium with 1000mg vitamin D3 biotin 1 mg cap Take by mouth. aspirin, enteric coated (ASPIR-LOW) 81 mg EC tablet Take 1 tablet by mouth once daily. ursodiol (ACTIGALL) 300 mg capsule Take 300 mg by mouth twice daily. albuterol HFA (PROVENTIL HFA, VENTOLIN HFA) 90 mcg/actuation inhaler Inhale 2 Puffs as instructed every 4 hours as needed. lancets (FREESTYLE LANCETS) 28 gauge misc Test blood sugar(s) one times daily. Dx: Type 2 DM - Controlled E11.9 Insulin: No loratadine (CLARITIN) 10 mg ORAL tablet Take 1 tablet by mouth once daily. (Patient taking differently: Take 10 mg by mouth as needed.) No current facility-administered medications on file prior to visit. Social History Social History Tobacco Use Smoking status: Former Packs/day: 1.00 Years: 32.00 Pack years: 32.00 Types: Cigarettes Quit date: 03/14/2014 Years since quittin.7 Smokeless tobacco: Never Tobacco comments: occasional Vaping Use Vaping Use: Never used Substance Use Topics Alcohol use: Yes Comment: rarely Drug use: No EXAM: BP 124/78 Pulse 74 Resp 16 Wt 88.9 kg (195 lb 14.4 oz) LMP 04/17/2016 (Exact Date) BMI 30.68 kg/m General Appearance: Well appearing, alert, in no acute distress, well-hydrated, well nourished. andOverweight.. Lungs: Lungs clear to auscultation. No wheezing, rhonchi, rales.. Heart: RRR without murmur, gallop, or rubs. No ectopy. Extremities: Edema: mild swelling to left ankle. Feet: Shoes and socks removed, No deformities, ulcers, calluses, normal distal pulses, and sensitive to 10 gm monofilament . Health Maintenance List PNEUMOCOCCAL(1 - PCV) Never done SHINGRIX VACCINE(1 of 2) Never done BP CONTROLLED (<130/80) due on 11/28/2019 COVID-19 VACCINE(3 - Booster for Pfizer series) due on 08/31/2021 HPV TESTING due on 01/24/2022 DEPRESSION ASSESSMENT Never done DILATED RETINAL EXAM due on 07/13/2022 DIABETIC FOOT EXAM due on 07/22/2022 URINE ALBUMIN:CREATININE RATIO due on 12/15/2022 HBA1C due on 12/19/2022 INFLUENZA(Season Ended) due on 03/09/2023 LDL CHOLESTEROL due on 06/20/2023 ANNUAL PCP TEAM CHRONIC DISEASE VISIT due on 06/30/2023 MAMMOGRAM due on 10/18/2023 LUNG CANCER SCREENING due on 11/08/2023 COLORECTAL CANCER SCREENING due on 08/02/2024 DTAP,TDAP,TD(2 - Td or Tdap) due on 03/14/2027 HEPATITIS C SCREENING Completed HIV SCREENING Completed PAP TESTING Discontinued Data reviewed Appointment on 12/18/2022 Component Date Value Protein, Total 12/18/2022 7.0 Albumin 12/18/2022 4.3 Calcium, Total 12/18/2022 9.4 Bilirubin, Total 12/18/2022 0.3 Alkaline Phosphatase 12/18/2022 61 AST 12/18/2022 11 (A) ALT 12/18/2022 9 Glucose 12/18/2022 125 (A) BUN 12/18/2022 15 Creatinine 12/18/2022 0.70 Sodium 12/18/2022 137 Potassium 12/18/2022 3.9 Chloride 12/18/2022 98 CO2 12/18/2022 25 Anion Gap 12/18/2022 14 Estimated Glomerular Mundo* 12/18/2022 99 Hemoglobin A1C 12/18/2022 6.7 (A) Estimated Average Glucose 12/18/2022 146 Cholesterol, Total 12/18/2022 347 (A) Triglyceride 12/18/2022 530 (A) HDL Cholesterol 12/18/2022 39 (A) Non HDL Cholesterol 12/18/2022 308 (A) Fasting Time 12/18/2022 10 VLDL Cholesterol 12/18/2022 TC:HDL Ratio 12/18/2022 8.90 (A) LDL Cholesterol 12/18/2022 LDL:HDL Ratio 12/18/2022 WBC 12/18/2022 7.22 RBC 12/18/2022 4.69 Hemoglobin 12/18/2022 13.0 Hematocrit 12/18/2022 39.1 MCV 12/18/2022 83.4 MCH 12/18/2022 27.7 MCHC 12/18/2022 33.2 RDW-CV 12/18/2022 14.3 Platelet Count 12/18/2022 200 MPV 12/18/2022 11.1 Absolute nRBC 12/18/2022 <0.01 TSH 12/18/2022 1.140 Vitamin B12 12/18/2022 1,218 Free T4 12/18/2022 1.3 LDL Cholesterol, Direct 12/18/2022 181 (A) VLDL Cholesterol 12/18/2022 127 (A) ASSESSMENT/PLAN: 1. Controlled type 2 diabetes mellitus without complication, without long-term current use of insulin (HCC) - ICD9: 250.00, ICD10: E11.9 (primary diagnosis) - Controlled - Continue current medications - Counseled on healthy diet and regular exercise - Discussed need for and benefit of weight loss. BMI 30.68 kg/(m^2) - Encouraged to follow up with eye doctor and Dr. Mariscal - METFORMIN ER 500 MG TABLET,EXTENDED RELEASE 24 HR 2. HYPERTENSION - ICD9: 401.1, ICD10: I10 - Controlled - Continue current medications - Recommend home blood pressure monitoring, to bring results to next visit - Encouraged sodium restriction, DASH or Mediterranean diet - Recommend regular aerobic exercise - LISINOPRIL 20 MG TABLET - HYDROCHLOROTHIAZIDE 25 MG TABLET 3. Abdominal bloating - ICD9: 787.3, ICD10: R14.0 Stable Continue current medications. - OMEPRAZOLE 20 MG CAPSULE,DELAYED RELEASE 4. Pain of upper abdomen - ICD9: 789.09, ICD10: R10.10 Stable Continue current medications. - OMEPRAZOLE 20 MG CAPSULE,DELAYED RELEASE 5. Acute right ankle pain - ICD9: 719.47, 338.19, ICD10: M25.571 - IBUPROFEN 800 MG TABLET 6. Cough - ICD9: 786.2, ICD10: R05.9 - ALBUTEROL SULFATE HFA 90 MCG/ACTUATION AEROSOL INHALER 7. Mixed hyperlipidemia - ICD9: 272.2, ICD10: E78.2 - Uncontrolled - Counseled on healthy diet and regular exercise - Discussed need for and benefit of weight loss. BMI 30.68 kg/(m^2) - Discussed following with the [facility] 8. Fibromyalgia - ICD9: 729.1, ICD10: M79.7 Continue current medications. 9. Vitamin D deficiency - ICD9: 268.9, ICD10: E55.9 Continue to monitor with labs 10. Neuropathy - ICD9: 355.9, ICD10: G62.9 Continue current medications. 11. Memory change - ICD9: 780.93, ICD10: R41.3 Refer to [facility] 12. Fatigue, unspecified type - ICD9: 780.79, ICD10: R53.83 Continue to monitor Follow up in 6 months with fasting labs and urine prior. I agree with the Chief Complaint, ROS, and Past Histories independently gathered by the clinical technical support engineer and the remaining scribed note accurately describes my personal service to the patient. Medical Decision Making: Problems: Moderate: 2+ stable chronic illnesses and New problem with uncertain prognosis Data: Unique test result(s) reviewed: 3+ Unique test(s) ordered: 3+ Risk: Moderate: Drug management Medical Decision Making Level: 4 - Moderate Gabbie Grady MD The documentation for this note was completed by Kinjal Mistry Ma acting as scribe for Gabbie Grady MD. December 21, 2022 1:25 PM. Kinjal Mistry Ma documented in this encounterTr[facility]23 Miscellaneous Notes* Telephone Encounter - Jaskaran Quiroz APRN.CNP - 11/07/2022 11:10 AM EDT The following approved medication requests have been transmitted electronically. Requested Prescriptions Pending Prescriptions Disp Refills lisinopril (ZESTRIL) 20 mg tablet [Pharmacy Med Name: LISINOPRIL 20 MG TABLET] 180 tablet 3 Sig: take 2 tablets by mouth once daily Jaskaran Quiroz APRN.CNP documented in this encounterTr[facility]04-27-2023 Miscellaneous Notes* Telephone Encounter - Gabbie Grady MD - 11/02/2022 11:57 AM EDT OK to refill as ordered Gabbie Grady MD documented in this encounterTr[facility]04-24-2023 History of Present illness Narrative* Imelda Dawkins, RT(R) - 10/30/2022 10:40 AM EDT Radiology Service Progress Note PATIENT NAME: Crystal Thakur DATE OF SERVICE: October 30, 2022 TIME: 11:05 AM PATIENT IDENTITY VERIFICATION COMPLETED USING TWO (2) IDENTIFIERS: Name and Date of confirmedby patient verbally. FALL SCREENING: Has the patient had 2 falls in the last year or 1 fall with injury or currently using an Ambulatory Assistive Device (Walker, Cane, Wheelchair, Crutches, etc.)? No PATIENT GENDER DATA: Female. status: : No status: NO. PATIENT RELEVANT IMPLANT DATA REVIEWED: Not Applicable RADIOLOGY DEPARTMENT: General X-ray: Exam(s) Completed: Upper Extremity X- Ray(s): Shoulder, AP / TRUE AP / AXILLARY left PERIPHERAL IV DATA: Not applicable SIGNED BY: RT Marisabel(R) October 30, 2022 11:05 AM documented in this encounterTr[facility]04-12-2023 Miscellaneous Notes* Letter - Mammography Coordinator - 10/18/2022 4:33 PM EDT October 19, 2022 PID: [id number] Crystal Thakur [address] [place] [address] Dear Ms. Thakur, We are pleased to inform you that the results of your recent breast imaging exam on 10/17/2022 are normal. Early detection of cancer is very important. We also understand recommendations regarding breast cancer screening are controversial. Please discuss with your primary care provider which strategy is best for you and whether a mammogram is right for you. Your imaging studies and report will be kept on file at [facility] as part of your permanent medical record and are available for your continuing care. Thank you for allowing us to help in meeting your health care needs. Sincerely, Dr. Inman Interpreting Radiologist [facility] (Normal over 40) documented in this encounterTrinity [facility]04-11-2023 History of Present illness Narrative* Svitlana Napoles RT(R) - 10/17/2022 10:10 AM EDT Radiology Service Progress Note PATIENT NAME: Crystal Thakur DATE OF SERVICE: October 17, 2022 TIME: 9:53 AM PATIENT IDENTITY VERIFICATION COMPLETED USING TWO (2) IDENTIFIERS: Name and Date of confirmedby patient verbally. FALL SCREENING: Has the patient had 2 falls in the last year or 1 fall with injury or currently using an Ambulatory Assistive Device (Walker, Cane, Wheelchair, Crutches, etc.)? No PATIENT GENDER DATA: Female. status: status: NO. PATIENT RELEVANT IMPLANT DATA REVIEWED: Not Applicable RADIOLOGY DEPARTMENT: Mammography PERIPHERAL IV DATA: Not applicable SIGNED BY: RT Walt(R) October 17, 2022 9:53 AM documented in this encounterTr[facility]03-29-2023 Miscellaneous Notes* Telephone Encounter - Jaskaran Quiroz APRN.CNP - 10/04/2022 9:11 AM EDT The following approved medication requests have been transmitted electronically. Requested Prescriptions Pending Prescriptions Disp Refills benzonatate (TESSALON PERLE) 100 mg capsule 30 capsule 1 Sig: Take 1 capsule by mouth three times daily as needed for cough. Jaskaran Quiroz APRN.CNP * Telephone Encounter - Odessa Spain MA - 10/04/2022 9:04 AM EDT FARAZ 06/30/22 NOV 12/21/22 Odessa Spain MA * Telephone Encounter - Shelley Nelson - 10/03/2022 4:10 PM EDT Patient has been identified by name and date of : Yes Requested Prescriptions Pending Prescriptions Disp Refills benzonatate (TESSALON PERLE) 100 mg capsule 30 capsule 1 Sig: Take 1 capsule by mouth three times daily as needed for cough. RX INSTRUCTIONS: Patient aware RX will be sent to pharmacy. No need to notify patient. Shelley Nelson documented in this encounterTr[facility]03-27-2023 Miscellaneous Notes* Telephone Encounter - Jaskaran Quiroz APRN.CNP - 10/02/2022 9:01 AM EDT The following approved medication requests have been transmitted electronically. Requested Prescriptions Pending Prescriptions Disp Refills blood sugar diagnostic (TRUE METRIX GLUCOSE TEST STRIP) test strip 150 Strip 11 Sig: Use 4-6 times daily to check blood sugar. Dx:E11.9 insulin:No Jaskaran Quiroz APRN.YADIRA * Telephone Encounter - Mari Pederson LPN - 10/02/2022 8:49 AM EDT Patient phones requesting refills as follows: Requested Prescriptions Pending Prescriptions Disp Refills blood sugar diagnostic (TRUE METRIX GLUCOSE TEST STRIP) test strip 150 Strip 11 Sig: Use 4-6 times daily to check blood sugar. Dx:E11.9 insulin:No FARAZ-06/30/22 Labs-09/06/22 NOV-12/21/22 Please review and advise. Mari Pederson LPN documented in this encounterTr[facility]02-28-2023 Miscellaneous Notes* Telephone Encounter - Frederick Oates RN - 09/05/2022 12:11 PM EST Called patient as a post surgery follow up call, went to voicehiil. Left message with office contact information and encouraged patient to call with questions or concerns. S/p Laparoscopic bilateral inguinal hernia repair with mesh 08/30/22 Post op: 09/19 with KB documented in this encounterTr[facility]02-28-2023 Miscellaneous Notes* Telephone Encounter - Gabbie Grady MD - 09/05/2022 12:01 PM EST OK to refill as ordered Gabbie Grady MD * Telephone Encounter - Kinjal Mistry Ma - 09/05/2022 11:34 AM EST Last office visit: 06/30/22 F/u scheduled: none Kinjal Mistry Ma documented in this encounterTr[facility]02-23-2023 Miscellaneous Notes* Telephone Encounter - Frederick aOtes RN - 08/31/2022 2:44 PM EST Again tried to reach patient, went to voicemail. Left message with office phone number. * Telephone Encounter - Frederick Oates RN - 08/31/2022 12:22 PM EST Returned call, went to voicemail. Left message with office contact information. * Telephone Encounter - Frederick Oates RN - 08/31/2022 11:37 AM EST Returned call, went to voicemail. Left message with office contact information. * Telephone Encounter - Randi Bryan - 08/31/2022 10:23 AM EST Patient called regarding 08/30 laparoscopic inguinal hernia repair and concerns regarding urinary retention return call to [phone] documented in this encounterTrinity [facility]02-22-2023 NoteHNO ID: [id number] Author: RON Haynes Service: ? Author Type: Manufacturing Helper Type: Anesthesia Procedure Notes Filed: 08/30/2022 3:48 PM Note Text: ANESTHESIOLOGY PROCEDURE NOTE PIV General Information Procedure Start Time/Medication Administration: 08/30/2022 3:32 PM Patient Location: OR Staffing CAA: RON Haynes Performed by: SERAFIN Preparation Sterility Preparation: hand hygiene performed prior to procedure Site Prep: Betadine and chlorhexidine Procedure Details Indication: need for IV access Needle Size/Type: 18 gauge angiocath Orientation: Right Location: Wrist Imaging Guidance Used: No SIGNATURE: RON Haynes PATIENT NAME: Crystal Thakur DATE: August 30, 2022 TIME: 3:48 PM CSN: [id number] NoteHNO ID: [id number] Author: RON Haynes Service: ? Author Type: Manufacturing Helper Type: Anesthesia Procedure Notes Filed: 08/30/2022 3:46 PM Note Text: ANESTHESIOLOGY PROCEDURE NOTE Airway General Information Procedure Start Time/Medication Administration: 08/30/2022 3:29 PM Patient location during procedure: OR Patient identity confirmed: arm band Staffing Anesthesiologist: Vania Liu MD Performed by: anesthesiologist Indications and Patient Condition Indications for airway management: anesthesia Preoxygenated: yes anesthesia circuit Method: sleep Difficult Mask: No Airway Accessory: oral airway Final Airway Details Final airway type: endotracheal airway Final Endotracheal Airway: ETT Cuffed: yes Successful intubation technique: video laryngoscopy Devices used: Glidescope Endotracheal tube insertion site: oral Blade: Dexter Blade size: #4 ETT size (mm): 7.0 Measured from: gums Measurement (cm): 21 Placement verified by: capnometry Cormack-Lehane Classification: grade I - full view of glottis Number of attempts at approach: 1 Airway not difficult Comments Glidescope for teaching purposes, airway assisted by Nhan TELLEZ PA-C SIGNATURE: RON Haynse PATIENT NAME: Crystal Thakur DATE: August 30, 2022 TIME: 3:45 PM CSN: [id number] Miscellaneous Notes* Telephone Encounter - Nathan Hernandez MD - 08/29/2022 2:48 PM EST RB# [id number]: Vascular events in patients undergoing same-day nonCardiac surgery - [facility]IANCE PI: Torsten Medina MD, FLORENTINO, FASA. Outcomes Research Department. Anesthesia [place]. [facility]. This is a research study note. Patient assessments recorded here should not guide either clinical care or clinical decision-making. I spoke with Crystal Thakur regarding eligibility for the VALIANCE study. The background, rationale, hypotheses, study related procedures, known risks, potential benefits, and alternatives to research participation were discussed at length per the study phone script. The patient will consider participating in the study and would like to read the study related materials to know more details about the study. I have confirmed that the e-mail address on file is the current one and is okay to receive study related materials there. We will send the informed consent today. Nathan Hernandez MD Research Fellow Outcomes Research [facility] documented in this encounterTrinity [facility]02-15-2023 History of Present illness Narrative* JASON Dumont - 08/23/2022 11:00 AM EST Radiology Service Progress Note PATIENT NAME: Crystal Thakur DATE OF SERVICE: August 23, 2022 TIME: 10:41 AM PATIENT IDENTITY VERIFICATION COMPLETED USING TWO (2) IDENTIFIERS: Name and Date of confirmedby patient verbally. FALL SCREENING: Has the patient had 2 falls in the last year or 1 fall with injury or currently using an Ambulatory Assistive Device (Walker, Cane, Wheelchair, Crutches, etc.)? No PATIENT GENDER DATA: Female. status: : No status: NO. PATIENT RELEVANT IMPLANT DATA REVIEWED: Not Applicable RADIOLOGY DEPARTMENT: Bone Density PERIPHERAL IV DATA: Not applicable SIGNED BY: RT Sandi August 23, 2022 10:41 AM documented in this encounter[facility] History and physical note * Cherie Eddy PA-C - 08/16/2022 1:20 PM EST PREANESTHESIA CONSULT CLINIC TELEHEALTH VISIT Patient has been identified by name and date of : Yes This is a virtual visit using [employer] video visit. It require patient-provider interaction for the medical decision making as documented below. Reason for contact: PACC visit Accompanied by: Self Scheduled Surgery: LAPAROSCOPIC HERNIORRHAPHY, INGUINAL INITIAL BILATERAL - Bilateral Subjective CHIEF COMPLAINT: Patient presents with: Anesthesia Consult HPI: This is a 62 year old female who presents with bilateral inguinal hernia. Right inguinal hernia > left. Describes right size as about the size of a grapefruit. Denies pain at this time but does have discomfort with increased activity. Recommended for above surgery and elected to proceed. ACTIVE PROBLEM LIST HYPERTENSION Hyperlipidemia Esophageal Reflux Fibromyalgia Osteoarthrosis, Unspecified Whether Generalized Or Localized, Lower Leg Obesity, Unspecified Edema Vitamin D Deficiency Benign Neoplasm of Colon Cervicalgia Dizziness and Giddiness Chondromalacia of Patella Pain in Joint, Hand Cmc Arthritis, Thumb, Degenerative Cervical High Risk Human Papillomavirus (Hpv) Dna Test Positive Druj (Distal Radioulnar Joint) Arthrosis, Primary Controlled Type 2 Diabetes Mellitus Without Complication, Without Long-Term Current Use of Insulin (Hcc) Fibromuscular Dysplasia (Hcc) Heart Palpitations Status Post Total Right Knee Replacement Using Cement Rectocele Complete Uterine Prolapse Obesity, Class I, Bmi 30-34.9 Aortic Atherosclerosis (Hcc) Statin Intolerance Tobacco Abuse, in Remission 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 Use of Antiplatelet Drug Family History of Intracranial Aneurysms S/P Right Rotator Cuff Repair Impingement Syndrome of Right Shoulder Impingement Syndrome of Left Shoulder Biceps Tendonosis of Right Shoulder Left Renal Stone Acute Midline Low Back Pain Without Sciatica 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 Abnormal Pap smear of cervix 09/11/2013 LSIL, Seeing HYDRAULIC TESTER Allergic rhinitis Anemia, unspecified Due to heavy menstrual cycles Benign neoplasm of colon 08/2009 POLYPS Cervical high risk human papillomavirus (HPV) DNA test positive 09/18/2013 Cystocele, midline Diabetes mellitus type II, controlled (HCC) metformin Diverticulosis Esophageal reflux 1999 RESOLVED due to diet change Esophagitis, unspecified Essential hypertension, benign 1998 Fatty liver Fibromuscular dysplasia (HCC) renal and carotid arteries; follows with [facility] clinic Fibromyalgia Giant cell arteritis (HCC) 2020 Heart palpitations nadalol helps Incomplete uterovaginal prolapse Obesity, unspecified Osteoarthrosis, unspecified whether generalized or localized, lower leg bilateral knees > hips Other and unspecified hyperlipidemia 1998 has been on meds in past, had tolerated Lipitor but afraid of statins Phlebitis and thrombophlebitis of superficial vessels of lower extremities 3rd child 1985, right leg Renal stones Varicose veins of other sites 2006 h/o varicose veins onset with first age of 20, had total of 4 pregnancies last was twins.First Vein stripping right leg surgery was 1992 at [facility], Second surgery 1993 to left leg (h/o hernia repair reason for one leg at a time). Here for possible laser surgery to remove lumpy and rope type veins. PAST SURGICAL HISTORY Procedure Laterality Date COLSC FLX W/RMVL OF TUMOR POLYP LESION SNARE TQ 01/14/2010 DILATION & CURETTAGE DX&/THER NONOBSTETRIC 2006 Dilation & curettage-HYPERPLASIA, likely will have hysterectomy within next year EGD TRANSORAL BIOPSY SINGLE/MULTIPLE 01/14/2010 EXC CYST/ABERRANT BREAST TISSUE OPEN 1/> LESION 01/03/2010 Left breast, benign FASCIECTOMY PLANTAR FASCIA PARTIAL SPX 1992 FOOT Left plantar fasciitis release HYSTERECTOMY HX 05/03/2020 TVH, uterosacral vaginal vault suspension, A/P repair IUD INSERTION (HYDRAULIC TESTER DEPT)_*FL 05/14/2008 Mirena, removed JOINT REPLACEMENT HX total right knee LIG/TRNSXJ FLP TUBE ABDL/VAG APPR UNI/BI 1988 Tubal ligation NOVASURE 01/2010 PAST SURGICAL HISTORY OF 1984 EXPLORATORY LAP PAST SURGICAL HISTORY OF 1992 BILAT LEG-VEIN STRIPPING PAST SURGICAL HISTORY OF 10/2007, 12/2007 Bilat leg-vein stripping PAST SURGICAL HISTORY OF Right 01/24/2021 Right bicep repair PAST SURGICAL HISTORY OF Right 2018 TKA REMOVE INTRAUTERINE DEVICE 2011 Expelled 3 weeks after insertion ROTATOR CUFF REPAIR Right bicept reattachment RPR UMBILICAL HRNA 5 YRS/> REDUCIBLE 1993, 1989, 2007 Repaired 3 Times VAGINOSCOPY 09/25/2013 LSIL FAMILY HISTORY Problem Relation Age of Onset Lipids Mother High Cholesterol Hypertension Mother Osteoporosis Mother Arthritis Mother Cataract Mother resolved with surgery other (Other) Mother Meniere's Psychiatry Father depression, committed suicide age 49 Thyroid Daughter Strabismus Daughter other (turners) Daughter other (aortic stenosis) Daughter Thyroid Daughter other (celiac disease) Daughter other (Fibromyalgia) Daughter other (MVP) Daughter Thyroid Daughter other (MVP) Daughter Hypertension Son other (hypogonadism) Son other (osteoarthritis) Son other (IBS) Son Diabetes Paternal Aunt Osteoporosis Maternal Grandmother Thyroid Maternal Grandmother Cancer Maternal Grandfather leukemia Heart Maternal Grandfather Alzheimer's Disease Paternal Grandmother Anesthesia Problems No Family History Social History Tobacco Use Smoking status: Former Packs/day: 1.00 Years: 35.00 Pack years: 35.00 Types: Cigarettes Quit date: 03/14/2014 Years since quittin.4 Smokeless tobacco: Never Tobacco comments: occasional Vaping Use Vaping Use: Never used Substance Use Topics Alcohol use: Yes Comment: rarely Drug use: No ALLERGIES Allergen Reactions Cymbalta [Duloxetin* Other: See Comments Intolerance, elevated BP, pulse Keflex [Cephalexin] GI Upset Bloating and tears up stomach Monosodium Glutamat* Other: See Comments Severe headache Oxycodone Other: See Comments Heart palpitations Rabbit Dander Shortness of Breath Splenda [Other] Other: See Comments Severe headaches [place]'s Wort Other: See Comments Elevated BP Atorvastatin Myalgia Muscle Aches Crestor [Rosuvastat* Myalgia Gabapentin Other: See Comments Depression, suicidal thoughts Niacin Intolerance Facial numbness Niacinamide Other: See Comments Facial Numbness Cats Shortness of Breath Aspartame Other: See Comments Severe headache Doxycycline GI Upset Erythromycin GI Upset Glutamic Acid Unknown Patient is not familiar with this product Latex Itching Redness Sucralose Unknown Zithromax [Azithrom* GI Upset GI MEDICATIONS: Current Outpatient Medications Medication Sig omeprazole (PRILOSEC) 20 mg capsule Take 1 capsule by mouth daily before breakfast. 1/2 hr before meal. [employer] 14 DAY SENSOR kit apply NEW SENSOR EVERY 14 DAYS TO UPPER ARM methocarbamol (ROBAXIN) 500 mg tablet Take 2 tablets by mouth three times daily. As needed for pain nadolol (CORGARD) 40 mg tablet Take 1 tablet by mouth twice daily. hydroCHLOROthiazide (HYDRODIURIL, ESIDRIX) 25 mg tablet Take 1 tablet by mouth once daily. nortriptyline (PAMELOR) 25 mg capsule Take 1 capsule by mouth daily at bedtime. amLODIPine (NORVASC) 10 mg tablet Take 1 tablet by mouth once daily. ibuprofen (MOTRIN) 800 mg tablet Take 1 tablet by mouth every 6 hours as needed for pain. lisinopril (ZESTRIL, PRINIVIL) 20 mg tablet Take 2 tablets by mouth once daily. metFORMIN ER (GLUCOPHAGE XR) 500 mg 24 hr tablet Take 3 tablets by mouth daily with breakfast. coenzyme Q10 (CO Q-10) 100 mg cap capsule Take 2 capsules by mouth once daily. ondansetron (ZOFRAN) 4 mg tablet Take 1 tablet by mouth every 8 hours as needed. lactobacillus acidophilus 100 mg (1 billion cell) cap(s) Take 1 capsule by mouth once daily. calcium carbonate/vitamin D3 (CALCIUM WITH VITAMIN D ORAL) Take 1 tablet by mouth twice daily. 600 mg calcium with 1000mg vitamin D3 biotin 1 mg cap Take by mouth. aspirin, enteric coated (ASPIR-LOW) 81 mg EC tablet Take 1 tablet by mouth once daily. ursodiol (ACTIGALL) 300 mg capsule Take 300 mg by mouth twice daily. albuterol HFA (PROVENTIL HFA, VENTOLIN HFA) 90 mcg/actuation inhaler Inhale 2 Puffs as instructed every 4 hours as needed. blood sugar diagnostic (TRUE METRIX GLUCOSE TEST STRIP) test strip Use 4-6 times daily to check blood sugar. Dx:E11.9 insulin:No lancets (FREESTYLE LANCETS) 28 gauge misc Test blood sugar(s) one times daily. Dx: Type 2 DM - Controlled E11.9 Insulin: No loratadine (CLARITIN) 10 mg ORAL tablet Take 1 tablet by mouth once daily. (Patient taking differently: Take 10 mg by mouth as needed.) No current facility-administered medications for this visit. COVID VACCINATION STATUS: Fully vaccinated REVIEW OF SYSTEMS: Pain Assessment: General: No weight loss, malaise or fevers. Neuro: No history of TIA's, stroke, [employer] tumor, impaired sensorium, hemiplegia, paraplegia or quadraplegia. No neurological symptoms or problems. Respiratory: No history of current cough or dyspnea, or pneumonia in the past 6 weeks. No history of respiratory/pulmonary symptoms or problems. + inhaler used for allergy induced reaction + former smoker Cardiovascular: Negative for Arrhythmia, CAD, Chest Pain, Valvular Heart Disease + giant cell arteritis - diagnosed in 2020, treated with predisone for 9 months and no medications since Mar 2022. Monitored with labs. + HTN + palpitations - controlled on Nadolol + Fibromuscular dysplasia - follows with [facility] clinic, involving carotid and renal arteries. Annual carotid and renal arteria duplex. Last seen 09/16/21 and stable. On aspirin 81mg GI: No history of GI symptoms or problems. No history of esophageal varices, recent ascites, or ETOH greater than 2 drinks per day. + [place] - monitoring + Gallstones on Actigall : No difficulty urinating, nocturia > 1 time per night or hematuria + hx of kidney stone HYDRAULIC TESTER: Negative for abnormal vaginal bleeding, abnormal vaginal discharge. : Denies, Patient's last menstrual period was 04/17/2016 (exact date). Endocrine: Diabetes Mellitus on oral agent + DM II - metformin, 6.8, has a CGM and fasting glucose variable from 50's to 116 Hematology: Chronic anti-coagulation / platelet meds (Aspirin) Oncology: No history of CA metastasis, chemo within 30 days, or radiotherapy within 90 days. Has not lost 10% of body wt in 6 months. No history of oncological symptoms or problems. Psych: No history of psychiatric symptoms or problems. Musculoskeletal: Negative for joint pain or swelling, back pain or muscle pain. Skin: Negative for lesions, rash and itching. Objective PHYSICAL EXAM: Ht 5' 7" (1.70m) Wt 192 lb (87.1kg) LMP 04/17/2016 BMI 30.06 kg/(m^2). VIDEO EXAM: (if completed, performed via video enabled technology) GENERAL: alert and appropriate, in no distress, well-hydrated, well nourished, and happy, smiling, interactive SKIN: no rash noted HEAD: normocephalic, no abnormality or lesion noted OROPHARYNX: moist mucus membranes NECK: full ROM, no cervical LNs noted RESPIRATORY: breathing non-labored CHEST: equal chest rise with normal respiratory effort HEART: well perfused, no cyanosis EXTREMITIES: occasional swelling to left ankle (hx of vein stripping) NEUROLOGIC: no obvious deficit Diagnostic tests reviewed for today's visit: Lab Value Units Date High Low HB 12.6 g/dL 06/20/2022 15.5 11.5 HCT 37.5 % 06/20/2022 46.0 36.0 WBC 10.55 k/uL 06/20/2022 11.00 3.70 PLT 243 k/uL 06/20/2022 400 150 NA 128 mmol/L 06/20/2022 144 136 K 4.0 mmol/L 06/20/2022 5.1 3.7 GLUC 110 mg/dL 06/20/2022 99 74 BUN 24 mg/dL 06/20/2022 21 7 CREAT 0.78 mg/dL 06/20/2022 0.96 0.58 PTSEC No results within date range. INR No results within date range. APTT No results within date range. ALT 6 U/L 06/20/2022 38 7 AST 8 U/L 06/20/2022 35 13 TBILI 0.3 mg/dL 06/20/2022 1.3 0.2 TSH No results within date range. Lab Value Units Date High Low HCGQT No results within date range. UHCG No results within date range. HCG, BODY* No results within date range. Lab Value Units Date High Low ABORHD No results within date range. ABSCREEN No results within date range. Hemoglobin A1C (%) Date Value 06/20/2022 6.8 12/15/2021 6.5 09/26/2021 7.0 09/09/2021 6.9 03/28/2021 6.9 12/13/2020 7.1 06/10/2020 6.9 12/09/2019 6.2 02/24/2019 6.7 CTA NECK W/ IV CON IMPRESSION: Unchanged beaded appearance of the cervical ICAs and mild luminal contour irregularity of the distal dominant right V1 segment suggestive of fibromuscular dysplasia. Stable small left MCA bifurcation infundibulum. No william aneurysm. No high-grade stenosis or large vessel occlusion in the head or neck. CTA CHEST/ABD/PEL 09/16/2021 Impression IMPRESSION: 1. Normal caliber thoracoabdominal aorta with mild atherosclerotic changes in the thoracic and suprarenal abdominal aorta, and severe near circumferential calcifications of the infrarenal abdominal aortic segment. The renal arteries luminal irregularities are more suggestive of atherosclerotic disease rather than FMD. Clinical correlation recommended. 2. Moderate amount of noncalcified thrombus in the proximal left subclavian artery. 3. Abdominal findings are stable compared to the CT scan from May 2021 All in Epic Impression/Recommendations ASSESSMENT: Tobacco abuse, in remission Assessment: 35 pack years Hyperlipidemia Assessment: stable on statin HYPERTENSION Assessment: stable on BP meds Fibromuscular dysplasia (HCC) Assessment: Follows with [facility] clinic, involving carotid and renal arteries. Annual carotid and renalarteria duplex. Last seen 09/16/21 and stable. On aspirin 81mg Controlled type 2 diabetes mellitus without complication, without long-term current use of insulin (HCC) Assessment: Stable on Metformin, last A1C 6.8. has a continuous glucuose monitor and fasting glucose variable from 50's to 116 Heart palpitations Assessment: controlled on Nadolol METS: Walk a block or two on level ground (2.75 METs) Do moderate work around the house such as vacuuming, sweeping floors, or carrying in groceries (3.50 METs) Do yardwork, such as raking leaves, weeding,or pushing a power mower (4.50 METs) Patient denies any chest pain or undue shortness of breath with the above physical activity. ASA Class: 3 ANESTHESIA FINDINGS: Intubation History: No history of difficult intubation Significant Anesthesia Considerations: None Occasional post-op nausea (rare) Airway Exam: General: Normal appearance Mallampati Score is CLASS III ULBT: Class I - Lower incisors can bite the upper lip above the jayme line Neck: Normal appearance and slightly decreased ROM extension and lateral rotation. Distance from hyoid to mentum during neck extension is at least 3 finger breaths Mouth: Normal tongue size and Mouth opening greater than 2 finger breaths Dentition: Upper denture and Lower denture Airway History: No abnormal airway history STOP BANG Score: Criteria: Hypertension Age over 50 (62 year old) Score = 2 PLAN: This patient is optimally prepared for surgery. CONSULTS: Patient does not require consults for optimization at this time. The Following Tests/Procedures Have Been Initiated: Labs not indicated per PACC protocol, EKG not indicated per PACC protocol Planned Anesthetic: General Instructions Given to Patient: Patient given verbal instructions and voices comprehension and compliance. Copy sent electronically via My Chart, email, or mobile device. This is a virtual visit. It required patient-provider interaction for the medical decision making as documented above. SIGNATURE: Cherie Eddy PA-C PATIENT NAME: Crystal Thakur DATE: August 16, 2022 TIME: 1:48 PM PAGER/CONTACT #: documented in this encounterTr[facility]23 Miscellaneous Notes* Telephone Encounter - Thao Love RN - 08/10/2022 11:53 AM EST Patient calls and notified that order is placed. Patient voiced understanding. Thao Love RN * Telephone Encounter - Isis Cardenas RN - 08/10/2022 11:18 AM EST VM left for pt to call PCP office and ask for a nurse for message below. Isis Cardenas RN * Telephone Encounter - Gabbie Grady MD - 08/10/2022 10:37 AM EST OK to refill as ordered DEXA ordered Gabbie Grady MD * Telephone Encounter - Isis Cardenas RN - 08/10/2022 9:12 AM EST Patient calling with 2 requests: Requesting refill of her Hugh sensors. Script pended for review. Pt requesting DXA bone scan order to be placed if PCP agreeable. Pt's last scan was 07/19/21. She reports since then, she has been on high dose and long-term prednisone and is concerned if this had aneffect on her bones. Please call patient with update. Thank you. documented in this encounterTr[facility]02-02-2023 Instructions* Patient Instructions* Gabbie Grady MD - 08/10/2022 10:37 AM EST BONE MINERAL DENSITY PATIENT INSTRUCTIONS Bone mineral density testing measures the amount of calcium in certain parts of your bones. This information determines how strong your bones are. The test is used to detect osteoporosis, a disease in which the bone's mineral content and density are low, increasing a person's risk of fractures. Thelumbar spine (lower back) and the hip are the skeletal sites usually examined. For the test, remember that: 1. You cannot take this test if you are . 2. Eat a normal diet on the day of the test. 3. Take your medications as you normally would. 4. DO NOT take calcium supplements (such as Tums) for 24 hours before the test. 5. On the day of the test, leave valuables (jewelry or credit cards) at home. 6. The test should be performed prior to oral, rectal or IV contrast studies, or at least 7 days after any of these studies. For the test, you may be asked to wear a hospital gown. You will lie on your back, on a padded table, in a comfortable position. Generally, you can resume your usual activities immediately. documented in this encounterTr[facility]01-30-2023 Miscellaneous Notes* Telephone Encounter - Gabbie Grady MD - 08/07/2022 1:02 PM EST OK to refill as ordered Gabbie Grady MD documented in this encounterTr[facility]01[facility] History of Present illness Narrative* Frederick Oates RN - 07/13/2022 2:46 PM EST FMLA/STD needed: No AMBULATORY PATIENT EDUCATION NOTE PRE-OP TEACHING PROCEDURE: laparoscopic bilateral inguinal hernia repair READINESS TO LEARN COGNITIVE ABILITY: Alert and oriented MOTIVATION TO LEARN: Interested FAMILY SUPPORT: Unable to assess - Family not present INSTRUCTION PROVIDED TO: Patient PATIENT LEARNS BEST BY: Multiple Methods FACTORS AFFECTING LEARNING: None PHYSICAL LIMITATIONS AFFECTING LEARNING: None LEARNING RESPONSE DIAGNOSIS: bilateral inguinal hernias METHOD OF INSTRUCTION: Individual instruction Written instruction - handouts Verbal instruction PATIENT / FAMILY RESPONSE: Verbalizes understanding of: PAIN MANAGEMENT-Effective strategies to manage pain in addition to pain medication PHYSICAL RESTRICTIONS-Physical restrictions and recommendations after discharge from the hospital POST-OPERATIVE INSTRUCTIONS-Correct actions to take to reduce postoperative complications PRE-OPERATIVE INSTRUCTIONS-Correct action to take to follow pre-operative instructions SYMPTOM MANAGEMENT-Correct actions to take to manage symptoms associated with his/her disease/illness WORSENING CONDITION-Signs and symptoms of a worsening condition that warrant a call to the physician WOUND CARE-Correct procedure to perform wound care DIET- Post op diet OTHER PRE-OP INSTRUCTIONS: FOLLOW-UP PLAN: Complete - No need for follow-up Patient instructed to call with any further issues Contact information given. SUPPLEMENTAL MATERIAL: - Pre Op Instructions Handout - PACC Brochure - Inguinal hernia Overview Handout - Post Op Instructions Handout REFERRAL (RECOMMENDATION): None Electronically Signed By: Frederick Oates RN In Department: GENERAL SURGERY documented in this encounterTr[facility]01-[facility]-2023 History of Present illness Narrative* Kris Jaime MD - 07/13/2022 1:00 PM EST HISTORY AND PHYSICAL [facility] Consultation requested by Dr. Yoandy Leon for an opinion regarding bilateral inguinal hernias. My final recommendations will be communicated back to the requesting physician by way of shared Medical record or letter to requesting physician via US mail. Chief Complaint: recurrent bilateral inguinal hernias HPI: Crystal Thakur is a 62 year old female with a history of DM, diverticulosis, HTN, fibromyalgia, OA, hyperlipidemia who presents for evaluation of recurrent bilateral inguinal hernias. Patient was evaluated by Dr. Rader 06/20 for complaints of having bilateral inguinal hernias. She underwent CTimaging 06/01 that showed a large right inguinal hernia and a small left inguinal hernia. She is referred for discussion of a possible robotic repair. First noticed a right inguinal hernia about 3 years ago. She reports pain in the right groin when she is active and doing activities outside like using her push mower and gardening. No nausea, vomiting or diarrhea. Hernia is soft and reducible. Did have one episode last fall when the hernia became very hard and was difficult to reduce for a few days but no similar episodes. No overlying skin changes. She notes a tiny bit of bulging on the left but reports no symptoms associated with this side. 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 Abnormal Pap smear of cervix 09/11/2013 LSIL, Seeing HYDRAULIC TESTER Allergic rhinitis Anemia, unspecified Due to heavy menstrual cycles Benign neoplasm of colon 08/2009 POLYPS Cervical high risk human papillomavirus (HPV) DNA test positive 09/18/2013 Cystocele, midline Diabetes mellitus type II, controlled (HCC) metformin Diverticulosis Esophageal reflux 1999 RESOLVED due to diet change Esophagitis, unspecified Essential hypertension, benign 1998 Fatty liver Fibromuscular dysplasia (HCC) renal and carotid arteries; follows with [facility] clinic Fibromyalgia Giant cell arteritis (HCC) 2020 Heart palpitations nadalol helps Incomplete uterovaginal prolapse Obesity, unspecified Osteoarthrosis, unspecified whether generalized or localized, lower leg bilateral knees > hips Other and unspecified hyperlipidemia 1998 has been on meds in past, had tolerated Lipitor but afraid of statins Phlebitis and thrombophlebitis of superficial vessels of lower extremities 3rd child 1985, right leg Renal stones Varicose veins of other sites 2006 h/o varicose veins onset with first age of 20, had total of 4 pregnancies last was twins.First Vein stripping right leg surgery was 1992 at [facility], Second surgery 1993 to left leg (h/o hernia repair reason for one leg at a time). Here for possible laser surgery to remove lumpy and rope type veins. PAST SURGICAL HISTORY Procedure Laterality Date COLSC FLX W/RMVL OF TUMOR POLYP LESION SNARE TQ 01/14/2010 DILATION & CURETTAGE DX&/THER NONOBSTETRIC 2006 Dilation & curettage-HYPERPLASIA, likely will have hysterectomy within next year EGD TRANSORAL BIOPSY SINGLE/MULTIPLE 01/14/2010 EXC CYST/ABERRANT BREAST TISSUE OPEN 1/> LESION 01/03/2010 Left breast, benign FASCIECTOMY PLANTAR FASCIA PARTIAL SPX 1992 FOOT Left 1989' plantar fasciitis release HYSTERECTOMY HX 05/03/2020 [facility], uterosacral vaginal vault suspension, A/P repair IUD INSERTION (HYDRAULIC TESTER DEPT)_*FL 05/14/2008 Mirena, removed JOINT REPLACEMENT HX total right knee LIG/TRNSXJ FLP TUBE ABDL/VAG APPR UNI/BI 1987 Tubal ligation NOVASURE 01/2010 PAST SURGICAL HISTORY OF 1984 EXPLORATORY LAP PAST SURGICAL HISTORY OF 1992 BILAT LEG-VEIN STRIPPING PAST SURGICAL HISTORY OF 10/2007, 12/2007 Bilat leg-vein stripping PAST SURGICAL HISTORY OF Right 01/24/2021 Right bicep repair PAST SURGICAL HISTORY OF Right 2018 TKA REMOVE INTRAUTERINE DEVICE 2011 Expelled 3 weeks after insertion ROTATOR CUFF REPAIR Right bicept reattachment RPR UMBILICAL HRNA 5 YRS/> REDUCIBLE 1993, 1989, 2007 Repaired 3 Times VAGINOSCOPY 09/25/2013 LSIL Social History Tobacco Use Smoking status: Former Packs/day: 1.00 Years: 35.00 Pack years: 35.00 Types: Cigarettes Quit date: 03/14/2014 Years since quittin.3 Smokeless tobacco: Never Tobacco comments: occasional Vaping Use Vaping Use: Never used Substance Use Topics Alcohol use: Yes Comment: rarely Drug use: No Additional social history not relevant to the patient's HPI FAMILY HISTORY Problem Relation Age of Onset Lipids Mother High Cholesterol Hypertension Mother Osteoporosis Mother Arthritis Mother Cataract Mother resolved with surgery other (Other) Mother Meniere's Psychiatry Father depression, committed suicide age 49 Hypertension Son other (hypogonadism) Son other (osteoarthritis) Son other (IBS) Son Cancer Maternal Grandfather leukemia Heart Maternal Grandfather Alzheimer's Disease Paternal Grandmother Osteoporosis Maternal Grandmother Thyroid Maternal Grandmother Thyroid Daughter Strabismus Daughter other (turners) Daughter other (aortic stenosis) Daughter Thyroid Daughter other (celiac disease) Daughter other (Fibromyalgia) Daughter other (MVP) Daughter Thyroid Daughter other (MVP) Daughter Diabetes Paternal Aunt Additional family history not relevant to the patient's HPI ALLERGIES Allergen Reactions Cymbalta [Duloxetin* Other: See Comments Intolerance, elevated BP, pulse Keflex [Cephalexin] GI Upset Bloating and tears up stomach Monosodium Glutamat* Other: See Comments Severe headache Oxycodone Other: See Comments Heart palpitations Rabbit Dander Shortness of Breath Splenda [Other] Other: See Comments Severe headaches [place]'s Wort Other: See Comments Elevated BP Atorvastatin Myalgia Muscle Aches Crestor [Rosuvastat* Myalgia Gabapentin Other: See Comments Depression, suicidal thoughts Niacin Intolerance Facial numbness Niacinamide Other: See Comments Facial Numbness Cats Shortness of Breath Aspartame Other: See Comments Severe headache Doxycycline GI Upset Erythromycin GI Upset Glutamic Acid Unknown Patient is not familiar with this product Latex Itching Redness Sucralose Unknown Zithromax [Azithrom* GI Upset GI Current Outpatient Medications Medication Sig Dispense Refill nadolol (CORGARD) 40 mg tablet Take 1 tablet by mouth twice daily. 180 tablet 3 hydroCHLOROthiazide (HYDRODIURIL, ESIDRIX) 25 mg tablet Take 1 tablet by mouth once daily. 90 tablet 3 nortriptyline (PAMELOR) 25 mg capsule Take 1 capsule by mouth daily at bedtime. 30 capsule 5 methocarbamol (ROBAXIN) 500 mg tablet Take 2 tablets by mouth three times daily. As needed for [id number] tablet 2 ibuprofen (MOTRIN) 800 mg tablet Take 1 tablet by mouth every 6 hours as needed for pain. 360 tablet 3 lisinopril (ZESTRIL, PRINIVIL) 20 mg tablet Take 2 tablets by mouth once daily. 180 tablet 3 metFORMIN ER (GLUCOPHAGE XR) 500 mg 24 hr tablet Take 3 tablets by mouth daily with breakfast. 270 tablet 3 coenzyme Q10 (CO Q-10) 100 mg cap capsule Take 2 capsules by mouth once daily. 60 capsule 11 ondansetron (ZOFRAN) 4 mg tablet Take 1 tablet by mouth every 8 hours as needed. 30 tablet 2 FREESTYLE HUGH 14 DAY SENSOR kit apply NEW SENSOR EVERY 14 DAYS TO UPPER ARM lactobacillus acidophilus 100 mg (1 billion cell) cap(s) Take 1 capsule by mouth once daily. calcium carbonate/vitamin D3 (CALCIUM WITH VITAMIN D ORAL) Take 1 tablet by mouth twice daily. 600 mg calcium with 1000mg vitamin D3 biotin 1 mg cap Take by mouth. aspirin, enteric coated (ASPIR-LOW) 81 mg EC tablet Take 1 tablet by mouth once daily. 30 tablet 11 ursodiol (ACTIGALL) 300 mg capsule Take 300 mg by mouth twice daily. albuterol HFA (PROVENTIL HFA, VENTOLIN HFA) 90 mcg/actuation inhaler Inhale 2 Puffs as instructed every 4 hours as needed. 18 g 5 blood sugar diagnostic (TRUE METRIX GLUCOSE TEST STRIP) test strip Use 4-6 times daily to check blood sugar. Dx:E11.9 insulin:No 150 Strip 11 omeprazole (PRILOSEC) 20 mg capsule Take 1 capsule by mouth daily before breakfast. 1/2 hr before meal. 30 capsule 5 lancets (FREESTYLE LANCETS) 28 gauge misc Test blood sugar(s) one times daily. Dx: Type 2 DM - Controlled E11.9 Insulin: No 1 Each 11 loratadine (CLARITIN) 10 mg ORAL tablet Take 1 tablet by mouth once daily. (Patient taking differently: Take 10 mg by mouth as needed.) amLODIPine (NORVASC) 10 mg tablet Take 1 tablet by mouth once daily. 30 tablet 3 No current facility-administered medications for this visit. Review of Systems: General: No fevers, chills, weight gain/loss HEENT: No recent changes in vision, hearing, taste, or smell. Hematologic/Lymphatic: No lymphadenopathy. No history of easy bruising or bleeding. Pulmonary: No cough, wheeze, or shortness of breath. Cardiac: No heart palpitation or cardiac chest pain. Abdomen: No abdominal pain, nausea, vomiting, diarrhea, or constipation. History of GERD : No frequency, dysuria, or hematuria. Musculoskeletal: No new muscle or joint aches/pains - she reports chronic pain related to her fibromyalgia Neurologic: No numbness or tingling. Dermatologic: No rashes or lesions. BP 137/79 (BP Site: Left Arm, BP Position: Sitting) Pulse 79 Temp 36.5 C (97.7 F) Ht 170.2 cm(5' 7") Wt 87.5 kg (193 lb) LMP 04/17/2016 (Exact Date) SpO2 98% BMI 30.23 kg/m Physical Exam: Constitutional: The patient is well-developed, well-nourished, and in no distress. Head: Normocephalic and atraumatic. Eyes: No scleral icterus Neck: Normal range of motion. Cardiovascular: RRR, no murmur Pulmonary/Chest: Non-labored respirations on RA. Clear to auscultation bilaterally Abdominal: Soft, non-distended, and non-tender. Moderate right inguinal hernia - reducible when supine. Smaller, soft bulge in the left groin with valsalva. Musculoskeletal: Normal range of motion. Neurological: Alert and oriented, GCS 15. Skin: Skin is warm and dry. Psychiatric: Affect and judgment normal. LABS: Hemoglobin A1C (%) Date Value 06/20/2022 6.8 12/15/2021 6.5 09/26/2021 7.0 09/09/2021 6.9 03/28/2021 6.9 12/13/2020 7.1 06/10/2020 6.9 12/09/2019 6.2 02/24/2019 6.7 Imaging: Reviewed with the patient 09/16/21 - CT Abd/Pel: Periumbilical IPOM mesh with circumferential permanent tacks. The mesh appears to extended just under 2 cm caudal to the umbilicus and there is 12 cm between the umbilicus and pubis. Fat-containing left inguinal hernia. Moderate right inguinal hernia containing fat and non-obstructed small bowel Assessment: Crystal Thakur is a 62 year old female with a history of DM, diverticulosis, HTN, who presents with R>L bilateral reducible inguinal hernias. She also has a history of laparoscopic umbilical hernia repair with a 10 cm round Gortex DualMesh. We will proceed with a laparoscopic TEP bilateral inguinal hernia repair as we should be able to get into the retrorectus space just beneath the caudal border of the IPOM mesh/tacks. The risks, benefits, and alternatives to laparoscopic inguinal hernia repair were discussed with the patient including the risk of bleeding, infection, damage to the vas deferens or spermatic vessels, nerve injury, chronic groin pain, and recurrence. All patient questions were answered to their satisfaction. Written consent was obtained and can be found under the Consent tab in Epic. Plan: - Consented for laparoscopic bilateral inguinal hernia repair with mesh (TEP) Kris Jaime MD 07/17/22, 1:36 PM General [facility] History of Present illness Narrative* Gabbie Grady MD - 06/30/2022 1:20 PM EST Chief Complaint Follow up HPI: This Team Access Model visit is a virtual encounter, due to inclement weather. It required patient-provider interaction for the medical decision making as documented below. Patient was offered avirtual/telemedicine appointment in lieu of an office visit due to recommendations to reduce patient exposure to COVID-19. Patient is aware of limitations of performing the visit without a face to face visit in the office setting and agrees. No bowel, Gi, or urinary issues. Hx of kidney stones. Saw Dr. Leslie, Gen surgery 06/20/22 for bilateral inguinal hernia; referred to [place] for robotic surgery evaluation.. Lipid: Tries to watch diet. Taking Tricor 145 mg daily. Intolerant of statins HTN: Checks BP at home. Denies any chest pains, dizziness, or SOB. Is taking Nadolol 80 mg half pill BID, Lisinopril 20 mg 2 pills daily, Norvasc 10 mg daily, and HCTZ 25 mg daily. Fibro: Follows with [facility]. Is taking Ibuprofen 600 mg 1 pill every 6 hours, Robaxin 500 2 pills TID. Has tried CBD gummies and CBD patches or Delta 8 and really doesn't want to go back on those. Follows with Rheum for GCA. Has been off prednisone for 5 months, doing well. is also on Nortriptyline which she feels is helping. DM: Checking BS daily. No hyperglycemic episodes. Does have some neuropathy sx, follows with Dr. Mariscal, Podiatry. Taking Metformin 500 mg 1-2 a day. About one month ago her sugars were slightly elevated for no apparent reason, now back down. A1c 6.8. Complains of developing Raynaud's in hands; difficulty keeping them warm, some color change. Past medical history, appointments, medications, allergies reviewed. 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; follows with [facility] Fibromyalgia Giant cell arteritis (HCC) 2020 Heart palpitations nadalol helps Incomplete uterovaginal prolapse Obesity, unspecified Osteoarthrosis, unspecified whether generalized or localized, lower leg bilateral knees > hips Other and unspecified hyperlipidemia 1998 has been on meds in past, had tolerated Lipitor but afraid of statins Phlebitis and thrombophlebitis of superficial vessels of lower extremities 3rd child 1985, right leg Renal stones Varicose veins of other sites 2006 h/o varicose veins onset with first age of 20, had total of 4 pregnancies last was twins.First Vein stripping right leg surgery was 1992 at [facility], Second surgery 1993 to left leg (h/o hernia repair reason for one leg at a time). Here for possible laser surgery to remove lumpy and rope type veins. Previous Surgical History PAST SURGICAL HISTORY Procedure Laterality Date COLSC FLX W/RMVL OF TUMOR POLYP LESION SNARE TQ 01/14/2010 DILATION & CURETTAGE DX&/THER NONOBSTETRIC 2005 Dilation & curettage-HYPERPLASIA, likely will have hysterectomy within next year EGD TRANSORAL BIOPSY SINGLE/MULTIPLE 01/14/2010 EXC CYST/ABERRANT BREAST TISSUE OPEN 1/> LESION 01/03/2010 Left breast, benign FASCIECTOMY PLANTAR FASCIA PARTIAL SPX 1992 FOOT Left 1989' plantar fasciitis release HYSTERECTOMY HX 05/03/2020 TV[facility], uterosacral vaginal vault suspension, A/P repair IUD INSERTION (HYDRAULIC TESTER DEPT)_*FL 05/14/2008 Mirena, removed JOINT REPLACEMENT HX total right knee LIG/TRNSXJ FLP TUBE ABDL/VAG APPR UNI/BI 1987 Tubal ligation NOVASURE 01/2010 PAST SURGICAL HISTORY OF 1984 EXPLORATORY LAP PAST SURGICAL HISTORY OF 1992 BILAT LEG-VEIN STRIPPING PAST SURGICAL HISTORY OF 10/2007, 12/2007 Bilat leg-vein stripping PAST SURGICAL HISTORY OF Right 01/24/2021 Right bicep repair PAST SURGICAL HISTORY OF Right 2017 TKA REMOVE INTRAUTERINE DEVICE 2011 Expelled 3 weeks after insertion ROTATOR CUFF REPAIR Right bicept reattachment RPR UMBILICAL HRNA 5 YRS/> REDUCIBLE 1993, 1989, 2007 Repaired 3 Times VAGINOSCOPY 09/25/2013 LSIL Family History FAMILY HISTORY Problem Relation Age of Onset Lipids Mother High Cholesterol Hypertension Mother Osteoporosis Mother Arthritis Mother Cataract Mother resolved with surgery other (Other) Mother Meniere's Psychiatry Father depression, committed suicide age 49 Hypertension Son other (hypogonadism) Son other (osteoarthritis) Son other (IBS) Son Cancer Maternal Grandfather leukemia Heart Maternal Grandfather Alzheimer's Disease Paternal Grandmother Osteoporosis Maternal Grandmother Thyroid Maternal Grandmother Thyroid Daughter Strabismus Daughter other (turners) Daughter other (aortic stenosis) Daughter Thyroid Daughter other (celiac disease) Daughter other (Fibromyalgia) Daughter other (MVP) Daughter Thyroid Daughter other (MVP) Daughter Diabetes Paternal Aunt Patient Allergies ALLERGIES Allergen Reactions Cymbalta [Duloxetin* Other: See Comments Intolerance, elevated BP, pulse Keflex [Cephalexin] GI Upset Bloating and tears up stomach Monosodium Glutamat* Other: See Comments Severe headache Oxycodone Other: See Comments Heart palpitations Rabbit Dander Shortness of Breath Splenda [Other] Other: See Comments Severe headaches [place]uan's Wort Other: See Comments Elevated BP Atorvastatin Myalgia Muscle Aches Crestor [Rosuvastat* Myalgia Gabapentin Other: See Comments Depression, suicidal thoughts Niacin Intolerance Facial numbness Niacinamide Other: See Comments Facial Numbness Cats Shortness of Breath Aspartame Other: See Comments Severe headache Doxycycline GI Upset Erythromycin GI Upset Glutamic Acid Unknown Patient is not familiar with this product Latex Itching Redness Sucralose Unknown Zithromax [Azithrom* GI Upset GI Current Medications Current Outpatient Medications on File Prior to Visit Medication Sig nortriptyline (PAMELOR) 25 mg capsule Take 1 capsule by mouth daily at bedtime. amLODIPine (NORVASC) 10 mg tablet Take 1 tablet by mouth once daily. methocarbamol (ROBAXIN) 500 mg tablet Take 2 tablets by mouth three times daily. As needed for pain ibuprofen (MOTRIN) 800 mg tablet Take 1 tablet by mouth every 6 hours as needed for pain. predniSONE (DELTASONE) 5 mg tablet Take 1 tablet by mouth once daily. (Patient taking differently: Take 5 mg by mouth once daily. As needed) nadolol (CORGARD) 80 mg tablet Take 0.5 tablets by mouth twice daily. lisinopril (ZESTRIL, PRINIVIL) 20 mg tablet Take 2 tablets by mouth once daily. metFORMIN ER (GLUCOPHAGE XR) 500 mg 24 hr tablet Take 3 tablets by mouth daily with breakfast. coenzyme Q10 (CO Q-10) 100 mg cap capsule Take 2 capsules by mouth once daily. amLODIPine (NORVASC) 5 mg tablet Take 1 tablet by mouth once daily. ondansetron (ZOFRAN) 4 mg tablet Take 1 tablet by mouth every 8 hours as needed. FREESTYLE HUGH 14 DAY SENSOR kit apply NEW SENSOR EVERY 14 DAYS TO UPPER ARM lactobacillus acidophilus 100 mg (1 billion cell) cap(s) Take 1 capsule by mouth once daily. calcium carbonate/vitamin D3 (CALCIUM WITH VITAMIN D ORAL) Take 1 tablet by mouth twice daily. 600 mg calcium with 1000mg vitamin D3 biotin 1 mg cap Take by mouth. aspirin, enteric coated (ASPIR-LOW) 81 mg EC tablet Take 1 tablet by mouth once daily. ursodiol (ACTIGALL) 300 mg capsule Take 300 mg by mouth twice daily. albuterol HFA (PROVENTIL HFA, VENTOLIN HFA) 90 mcg/actuation inhaler Inhale 2 Puffs as instructed every 4 hours as needed. blood sugar diagnostic (TRUE METRIX GLUCOSE TEST STRIP) test strip Use 4-6 times daily to check blood sugar. Dx:E11.9 insulin:No hydroCHLOROthiazide (HYDRODIURIL, ESIDRIX) 50 mg tablet take 1 tablet by mouth once daily if needed(Patient taking differently: 25 mg.) omeprazole (PRILOSEC) 20 mg capsule Take 1 capsule by mouth daily before breakfast. 1/2 hr before meal. lancets (FREESTYLE LANCETS) 28 gauge misc Test blood sugar(s) one times daily. Dx: Type 2 DM - Controlled E11.9 Insulin: No loratadine (CLARITIN) 10 mg ORAL tablet Take 1 tablet by mouth once daily. (Patient taking differently: Take 10 mg by mouth as needed.) No current facility-administered medications on file prior to visit. Social History Social History Tobacco Use Smoking status: Former Packs/day: 1.00 Years: 35.00 Pack years: 35.00 Types: Cigarettes Quit date: 03/14/2014 Years since quittin.2 Smokeless tobacco: Never Tobacco comments: occasional Vaping Use Vaping Use: Never used Substance Use Topics Alcohol use: Yes Comment: rarely Drug use: No EXAM: LMP 04/17/2016 (Exact Date) Gen: NAD Health Maintenance List PNEUMOCOCCAL(1 - PCV) Never done LUNG CANCER SCREENING Never done SHINGRIX VACCINE(1 of 2) Never done BP CONTROLLED (<130/80) due on 11/28/2019 DEPRESSION ASSESSMENT Never done COVID-19 VACCINE(3 - Booster for Pfizer series) due on 08/31/2021 HPV TESTING due on 01/24/2022 INFLUENZA(1) due on 03/09/2022 DILATED RETINAL EXAM due on 07/13/2022 DIABETIC FOOT EXAM due on 07/22/2022 MAMMOGRAM due on 08/26/2022 URINE ALBUMIN:CREATININE RATIO due on 12/15/2022 HBA1C due on 12/19/2022 ANNUAL PCP TEAM CHRONIC DISEASE VISIT due on 05/04/2023 LDL CHOLESTEROL due on 06/20/2023 COLORECTAL CANCER SCREENING due on 08/02/2024 DTAP,TDAP,TD(2 - Td or Tdap) due on 03/14/2027 HEPATITIS C SCREENING Completed HIV SCREENING Completed PAP TESTING Discontinued Data reviewed Appointment on 06/20/2022 Component Date Value Cholesterol, Total 06/20/2022 342 (A) Triglyceride 06/20/2022 259 (A) HDL Cholesterol 06/20/2022 51 Non HDL Cholesterol 06/20/2022 291 (A) Fasting Time 06/20/2022 12 VLDL Cholesterol 06/20/2022 52 (A) TC:HDL Ratio 06/20/2022 6.71 (A) LDL Cholesterol 06/20/2022 239 (A) LDL:HDL Ratio 06/20/2022 4.69 (A) Hemoglobin A1C 06/20/2022 6.8 (A) Estimated Average Glucose 06/20/2022 148 WBC 06/20/2022 10.55 RBC 06/20/2022 4.46 Hemoglobin 06/20/2022 12.6 Hematocrit 06/20/2022 37.5 MCV 06/20/2022 84.1 MCH 06/20/2022 28.3 MCHC 06/20/2022 33.6 RDW-CV 06/20/2022 14.3 Platelet Count 06/20/2022 243 MPV 06/20/2022 10.8 Neut% 06/20/2022 58.2 Abs Neut 06/20/2022 6.14 Lymph% 06/20/2022 28.4 Abs Lymph 06/20/[address] [facility]% 06/20/[address] [facility] 06/20/2022 0.85 Eosin% 06/20/2022 3.7 Abs Eosin 06/20/2022 0.39 Baso% 06/20/2022 0.7 Abs Baso 06/20/2022 0.07 Immature Gran % 06/20/2022 0.9 Abs Immature Gran 06/20/2022 0.10 (A) NRBC 06/20/2022 0.0 Absolute nRBC 06/20/2022 <0.01 Diff Type 06/20/2022 Auto Protein, Total 06/20/2022 7.2 Albumin 06/20/2022 4.6 Calcium, Total 06/20/2022 9.6 Bilirubin, Total 06/20/2022 0.3 Alkaline Phosphatase 06/20/2022 57 AST 06/20/2022 8 (A) ALT 06/20/2022 6 (A) Glucose 06/20/2022 110 (A) BUN 06/20/2022 24 (A) Creatinine 06/20/2022 0.78 Sodium 06/20/2022 128 (A) Potassium 06/20/2022 4.0 Chloride 06/20/2022 93 (A) CO2 06/20/2022 24 Anion Gap 06/20/2022 11 Estimated Glomerular Mundo* 06/20/2022 87 CRP 06/20/2022 <0.3 Sed Rate, Westergren 06/20/2022 10 Results Only on 06/09/2022 Component Date Value Ceiling Installer 06/09/2022 Value:Provider LESLIE your patient CRYSTAL THAKUR has been assigned their Grace program. The date to complete this order is 07-24-2022 The Grace program is: PATIENT SAFETY AND FALL PREVENTION The patient access code to view the Grace program is: [id number] To view the Grace program go to: [email or web address] ASSESSMENT/PLAN: 1. Controlled type 2 diabetes mellitus without complication, without long-term current use of insulin (HCC) - ICD9: 250.00, ICD10: E11.9 (primary diagnosis) Controlled. - Continue current medications 2. HYPERTENSION - ICD9: 401.1, ICD10: I10 - good control - Continue current medication(s) - Recommended regular aerobic exercise. - Recommend home blood pressure monitoring, to bring results in on next visit - Goal of BP <140/90 - HYDROCHLOROTHIAZIDE 25 MG TABLET 3. Mixed hyperlipidemia - ICD9: 272.2, ICD10: E78.2 - suboptimal control - Encouraged following a low fat, low cholesterol diet. 4. Statin intolerance - ICD9: 995.27, ICD10: Z78.9 5. Fibromuscular dysplasia (HCC) - ICD9: 447.8, ICD10: I77.3 6. Fibromyalgia - ICD9: 729.1, ICD10: M79.7 Continue current medications. 7. Temporal arteritis (HCC) - ICD9: 446.5, ICD10: M31.6 Follow with Rheum Follow up in 6 months Gabbie Grady MD [facility] History of Present illness Narrative* Yoandy Leon MD - 06/20/2022 11:03 AM EST HISTORY AND PHYSICAL Crystal Thakur 1960 REFERRING PHYSICIAN: Gabbie Grady MD CHIEF COMPLAINT: Consult (Bilateral inguinal hernia) HPI: The patient is a 62 year old female with a complaint of Bilateral recurrent inguinal hernia without obstruction or gangrene (primary encounter diagnosis). Patient has been experiencing significant right inguinal pain she had a CAT scan of the abdomen and pelvis in June 01, 2022 which demonstrated a large right inguinal hernia and a small left inguinal hernia. Her pain is exacerbated with movement and heavy lifting. She has a fairly complicated past medical history was recently treated for suspected giant cell arthritis with high-dose of steroids. This was more than 11 months ago and has been off her prednisone now for 2 months. In addition the patient has undergone a transvaginal hysterectomy with uterosacral colpopexy and anterior posterior cystocele and rectocele repairs. This was done by Dr. Aceves at [facility]. This was done all transvaginally. Finally many years back she had a laparoscopic repair of an umbilical hernia with mesh. The patient is being seen by me today at the request of Dr. Gabbie Grady MD for my opinion and advice regarding Bilateral recurrent inguinal hernia without obstruction or gangrene (primary encounter diagnosis). 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 Abnormal Pap smear of cervix 09/11/2013 LSIL, Seeing HYDRAULIC TESTER Allergic rhinitis Anemia, unspecified Due to heavy menstrual cycles Benign neoplasm of colon 08/2009 POLYPS Cervical high risk human papillomavirus (HPV) DNA test positive 09/18/2013 Cystocele, midline Diabetes mellitus type II, controlled (HCC) metformin Diverticulosis Esophageal reflux 1999 RESOLVED due to diet change Esophagitis, unspecified Essential hypertension, benign 1998 Fatty liver Fibromuscular dysplasia (HCC) renal and carotid arteries; follows with [facility] Fibromyalgia Giant cell arteritis (HCC) 2020 Heart palpitations nadalol helps Incomplete uterovaginal prolapse Obesity, unspecified Osteoarthrosis, unspecified whether generalized or localized, lower leg bilateral knees > hips Other and unspecified hyperlipidemia 1998 has been on meds in past, had tolerated Lipitor but afraid of statins Phlebitis and thrombophlebitis of superficial vessels of lower extremities 3rd child 1985, right leg Renal stones Varicose veins of other sites 2006 h/o varicose veins onset with first age of 20, had total of 4 pregnancies last was twins.First Vein stripping right leg surgery was 1992 at [facility], Second surgery 1993 to left leg (h/o hernia repair reason for one leg at a time). Here for possible laser surgery to remove lumpy and rope type veins. PAST SURGICAL HISTORY Procedure Laterality Date COLSC FLX W/RMVL OF TUMOR POLYP LESION SNARE TQ 01/14/2010 DILATION & CURETTAGE DX&/THER NONOBSTETRIC 2005 Dilation & curettage-HYPERPLASIA, likely will have hysterectomy within next year EGD TRANSORAL BIOPSY SINGLE/MULTIPLE 01/14/2010 EXC CYST/ABERRANT BREAST TISSUE OPEN /> LESION 01/03/2010 Left breast, benign FASCIECTOMY PLANTAR FASCIA PARTIAL SPX 1992 FOOT Left 1989' plantar fasciitis release HYSTERECTOMY HX 05/03/2020 TV[facility], uterosacral vaginal vault suspension, A/P repair IUD INSERTION (HYDRAULIC TESTER DEPT)_*FL 05/14/2008 Mirena, removed JOINT REPLACEMENT HX total right knee LIG/TRNSXJ FLP TUBE ABDL/VAG APPR UNI/BI 1988 Tubal ligation NOVASURE 01/2010 PAST SURGICAL HISTORY OF 1984 EXPLORATORY LAP PAST SURGICAL HISTORY OF 1992 BILAT LEG-VEIN STRIPPING PAST SURGICAL HISTORY OF 10/2007, 12/2007 Bilat leg-vein stripping PAST SURGICAL HISTORY OF Right 01/24/2021 Right bicep repair PAST SURGICAL HISTORY OF Right 2018 TKA REMOVE INTRAUTERINE DEVICE 2011 Expelled 3 weeks after insertion ROTATOR CUFF REPAIR Right bicept reattachment RPR UMBILICAL HRNA 5 YRS/> REDUCIBLE 1993, 1989, 2007 Repaired 3 Times VAGINOSCOPY 09/25/2013 [facility] Current Outpatient Medications Medication Sig nortriptyline (PAMELOR) 25 mg capsule Take 1 capsule by mouth daily at bedtime. methocarbamol (ROBAXIN) 500 mg tablet Take 2 tablets by mouth three times daily. As needed for pain ibuprofen (MOTRIN) 800 mg tablet Take 1 tablet by mouth every 6 hours as needed for pain. predniSONE (DELTASONE) 5 mg tablet Take 1 tablet by mouth once daily. (Patient taking differently: Take 5 mg by mouth once daily. As needed) nadolol (CORGARD) 80 mg tablet Take 0.5 tablets by mouth twice daily. lisinopril (ZESTRIL, PRINIVIL) 20 mg tablet Take 2 tablets by mouth once daily. metFORMIN ER (GLUCOPHAGE XR) 500 mg 24 hr tablet Take 3 tablets by mouth daily with breakfast. coenzyme Q10 (CO Q-10) 100 mg cap capsule Take 2 capsules by mouth once daily. amLODIPine (NORVASC) 5 mg tablet Take 1 tablet by mouth once daily. ondansetron (ZOFRAN) 4 mg tablet Take 1 tablet by mouth every 8 hours as needed. FREESTYLE HUGH 14 DAY SENSOR kit apply NEW SENSOR EVERY 14 DAYS TO UPPER ARM lactobacillus acidophilus 100 mg (1 billion cell) cap(s) Take 1 capsule by mouth once daily. calcium carbonate/vitamin D3 (CALCIUM WITH VITAMIN D ORAL) Take 1 tablet by mouth twice daily. 600 mg calcium with 1000mg vitamin D3 biotin 1 mg cap Take by mouth. aspirin, enteric coated (ASPIR-LOW) 81 mg EC tablet Take 1 tablet by mouth once daily. ursodiol (ACTIGALL) 300 mg capsule Take 300 mg by mouth twice daily. albuterol HFA (PROVENTIL HFA, VENTOLIN HFA) 90 mcg/actuation inhaler Inhale 2 Puffs as instructed every 4 hours as needed. blood sugar diagnostic (TRUE METRIX GLUCOSE TEST STRIP) test strip Use 4-6 times daily to check blood sugar. Dx:E11.9 insulin:No hydroCHLOROthiazide (HYDRODIURIL, ESIDRIX) 50 mg tablet take 1 tablet by mouth once daily if needed(Patient taking differently: 25 mg.) omeprazole (PRILOSEC) 20 mg capsule Take 1 capsule by mouth daily before breakfast. 1/2 hr before meal. lancets (FREESTYLE LANCETS) 28 gauge misc Test blood sugar(s) one times daily. Dx: Type 2 DM - Controlled E11.9 Insulin: No loratadine (CLARITIN) 10 mg ORAL tablet Take 1 tablet by mouth once daily. (Patient taking differently: Take 10 mg by mouth as needed.) amLODIPine (NORVASC) 10 mg tablet Take 1 tablet by mouth once daily. No current facility-administered medications for this visit. ALLERGIES: Cymbalta [Duloxetine], Keflex [Cephalexin], Monosodium Glutamate (Msg), Oxycodone, Rabbit Dander, Splenda [Other], [place]'s Wort, Atorvastatin, Crestor [Rosuvastatin], Gabapentin, Niacin, Niacinamide, Cats, Aspartame, Doxycycline, Erythromycin, Glutamic Acid, Latex, Sucralose, and Zithromax [Azithromycin] PERSONAL HISTORY: Social History Tobacco Use Smoking status: Former Packs/day: 1.00 Years: 35.00 Pack years: 35.00 Types: Cigarettes Quit date: 03/14/2014 Years since quittin.2 Smokeless tobacco: Never Tobacco comments: occasional Vaping Use Vaping Use: Never used Substance Use Topics Alcohol use: Yes Comment: rarely Drug use: No FAMILY HISTORY: FAMILY HISTORY Problem Relation Age of Onset Lipids Mother High Cholesterol Hypertension Mother Osteoporosis Mother Arthritis Mother Cataract Mother resolved with surgery other (Other) Mother Meniere's Psychiatry Father depression, committed suicide age 49 Hypertension Son other (hypogonadism) Son other (osteoarthritis) Son other (IBS) Son Cancer Maternal Grandfather leukemia Heart Maternal Grandfather Alzheimer's Disease Paternal Grandmother Osteoporosis Maternal Grandmother Thyroid Maternal Grandmother Thyroid Daughter Strabismus Daughter other (turners) Daughter other (aortic stenosis) Daughter Thyroid Daughter other (celiac disease) Daughter other (Fibromyalgia) Daughter other (MVP) Daughter Thyroid Daughter other (MVP) Daughter Diabetes Paternal Aunt REVIEW OF SYMPTOMS: The review of systems data was entered by the nurse and reviewed by ca Nursing Notes: Radha Pastrana RN 06/20/2022 10:50 AM Signed REVIEW OF SYSTEMS: General: The patient NOTES fatigue, denies weight loss, denies weight gain, NOTES feeling hot, and NOTES feelings of cold. Eyes: The patient denies glaucoma, denies eye injury/surgery, wears glasses or contacts. Ear/Nose/Throat: The patient NOTES allergies, denies hayfever, denies ear infections, and denies bloody noses. Cardiovascular: The patient denies chest pain, denies heart disease, NOTES high blood pressure,denies cardiac stent, denies prior heart attack, NOTES irregular heart beat, NOTES high cholesterol, NOTES poor circulation, denies heart failure, other cardiac issues, denies claudication, NOTES cold feet, denies peripheral arterial stent. Respiratory: The patient denies tuberculosis, denies pneumonia, denies frequent cough, denies pulmonary embolism, denies shortness of breath, and denies coughing up blood. Gastrointestinal: The patient denies difficulty swallowing, denies acid reflux, denies ulcers, denies vomiting, denies jaundice/hepatitis, NOTES gallbladder problems, denies black or tarry stools, NOTES hemorrhoids, denies bleeding from rectum, NOTES diverticulitis, denies constipation, denies diarrhea, denies loss of stool control, and NOTES hernias. Kidney/Bladder: The patient NOTES kidney stones, NOTES urine infections, and denies bloody urine. Skin: The patient denies a history of skin cancer, denies bleeding/changing moles, and denies a history of skin rash. Neurologic: The patient denies a history of epilepsy/convulsions, denies headaches, denies head/spinal injuries, and denies stroke/TIA. Psychiatric: The patient denies psychiatric medications, denies depression, and denies voices, denies substance abuse. Endocrine: The patient denies thyroid disorders, NOTES diabetes, and denies hormonal problems. Hematologic: The patient NOTES a history of bruising, NOTES bleeding, and denies anemia, denies blood clots. Infections: The patient denies a history of measles and mumps, denies rheumatic fever, and denies sexually transmitted diseases. Musculoskeletal: The patient NOTES back pain/injury, NOTES back problems, denies sciatica, NOTES knee/foot trouble, NOTES arthritis, or denies gout. When was patient's last Mammogram screening? 08/2021 Last Colonoscopy: 07/2021 Radha Pastrana RN PHYSICAL EXAMINATION: General: The patient is 62 year old female, well nourished, well hydrated in no acute distress. Thepatient is oriented to time, place, and person. VITALS: Blood pressure 124/82, pulse 80, temperature 36.4 C (97.5 F), height 170.2 cm (5' 7"), weight 87.9 kg (193 lb 12.8 oz), last menstrual period 04/17/2016, SpO2 99 %. HEENT: Normal cephalic, ataumatic, pupils are equally round, sclera are anicteric, mucous membranesare moist, oropharynx is clear. Neck has no masses, asymmetry or lymphadenopathy. Thyroid is unremarkable. Respiratory: Clear to auscultation and percussion. Normal respiratory excursion and pattern. Cardiac: Examination is regular rate and rhythm. Abdominal exam: Soft, nontender, with no palpable masses. No hepatosplenomegaly. Right inguinal hernia is palpable. I cannot feel the left inguinal hernia. Rectal exam: exam deferred Extremities: no clubbing, cyanosis or edema. No adenopathy. Other: LABORATORY VALUES: As Noted RADIOLOGIC STUDIES: As Noted Assessment IMPRESSION: Bilateral recurrent inguinal hernia without obstruction or gangrene (primary encounter diagnosis) PLAN: I am going to get her a surgical consultation with Dr. Kris Garrett for evaluation for possiblerobotic bilateral inguinal hernia repair. Diagnoses: (K40.21) Bilateral recurrent inguinal hernia without obstruction or gangrene (primary encounter diagnosis) My findings have been communicated to Dr. Gabbie Grady MD via shared medical record. This note will be forwarded to Dr. Gabbie Grady MD. Return to Clinic: The patient is instructed to follow-up with me as needed. Yoandy Leon III, MD documented [facility]Tr[facility] Nurse Note* Radha Pastrana RN - 06/20/2022 10:44 AM EST REVIEW OF SYSTEMS: General: The patient NOTES fatigue, denies weight loss, denies weight gain, NOTES feeling hot, and NOTES feelings of cold. Eyes: The patient denies glaucoma, denies eye injury/surgery, wears glasses or contacts. Ear/Nose/Throat: The patient NOTES allergies, denies hayfever, denies ear infections, and denies bloody noses. Cardiovascular: The patient denies chest pain, denies heart disease, NOTES high blood pressure,denies cardiac stent, denies prior heart attack, NOTES irregular heart beat, NOTES high cholesterol, NOTES poor circulation, denies heart failure, other cardiac issues, denies claudication, NOTES cold feet, denies peripheral arterial stent. Respiratory: The patient denies tuberculosis, denies pneumonia, denies frequent cough, denies pulmonary embolism, denies shortness of breath, and denies coughing up blood. Gastrointestinal: The patient denies difficulty swallowing, denies acid reflux, denies ulcers, denies vomiting, denies jaundice/hepatitis, NOTES gallbladder problems, denies black or tarry stools, NOTES hemorrhoids, denies bleeding from rectum, NOTES diverticulitis, denies constipation, denies diarrhea, denies loss of stool control, and NOTES hernias. Kidney/Bladder: The patient NOTES kidney stones, NOTES urine infections, and denies bloody urine. Skin: The patient denies a history of skin cancer, denies bleeding/changing moles, and denies a history of skin rash. Neurologic: The patient denies a history of epilepsy/convulsions, denies headaches, denies head/spinal injuries, and denies stroke/TIA. Psychiatric: The patient denies psychiatric medications, denies depression, and denies voices, denies substance abuse. Endocrine: The patient denies thyroid disorders, NOTES diabetes, and denies hormonal problems. Hematologic: The patient NOTES a history of bruising, NOTES bleeding, and denies anemia, denies blood clots. Infections: The patient denies a history of measles and mumps, denies rheumatic fever, and denies sexually transmitted diseases. Musculoskeletal: The patient NOTES back pain/injury, NOTES back problems, denies sciatica, NOTES knee/foot trouble, NOTES arthritis, or denies gout. When was patient's last Mammogram screening? 08/2021 Last Colonoscopy: 07/2021 Radha Pastrana RN documented in this encounterTr[facility]11[facility]14-[facility] Miscellaneous Notes* Telephone Encounter - Jaskaran Quiroz APRN.CNP - 05/22/2022 12:24 PM EST The following approved medication requests have been transmitted electronically. Requested Prescriptions Pending Prescriptions Disp Refills nortriptyline (PAMELOR) 25 mg capsule 30 capsule 5 Sig: Take 1 capsule by mouth daily at bedtime. Jaskaran Quiroz APRN.CNP documented in this encounterTr[facility]11-09-2022 Miscellaneous Notes* Telephone Encounter - Edith Chauhan MA - 05/17/2022 4:16 PM EST Consult, demo & insurance printed & faxed to [facility] [phone]. Unable to reach patient. Left VM to return call to office. Please advise patient to contact [facility] to schedule GEN SURG appt. Edith Chauhan MA * Telephone Encounter - Gabbie Grady MD - 05/17/2022 3:54 PM EST OK to refer as requested Gabbie Grady MD * Telephone Encounter - Orly Almazan RN - 05/17/2022 2:05 PM EST Patient calling with request to Dr. Mihir Alicea,, GEN SURG for painful lump in right groin that she says was diagnosed as an inguinal hernia last May. Orly Almazan RN documented in this encounterTr[facility]10-27-2022 Instructions* Patient Instructions* Xochilt Fernandez APRN.CNP - 05/04/2022 11:31 AM EDT Increase Norvasc to 10 mg daily. Continue to monitor BP at home, 1-2 times per day, record your readings. Follow up in 1 month or sooner as needed. documented in this encounterTr[facility]10-27-2022 History of Present illness Narrative* Xochilt Fernandez APRN.CNP - 05/04/2022 11:00 AM EDT This is a 62 year old female who presents today with: Patient presents with: Acute Visit: BP problems HISTORY OF PRESENT ILLNESS: Crystal Thakur is a 62 year old female. Patient presents with: Acute Visit: BP problems Here in the office for BP check. Blood pressure readings at home have been elevated. Started checking bp this past weekend due to hearing pulsations in the ear and headache. Using wrist cuff at home,120-180's/06-90's. Taking lisinopril 40 mg, Norvasc 5 mg, hydrochlorothiazide 25 mg daily, and nadalol 80 mg, 1/2 tab twice daily . Denies chest pain, palpitations, dizziness, or edema. Has had increased stress over the weekend. Chickens got killed. Took BP with cuff while in office and systolic was over 200 her manual cuff got 150. 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 Abnormal Pap smear of cervix 09/11/2013 [facility], Seeing HYDRAULIC TESTER Allergic rhinitis Anemia, unspecified Due to heavy menstrual cycles Benign neoplasm of colon 08/2009 POLYPS Cervical high risk human papillomavirus (HPV) DNA test positive 09/18/2013 Cystocele, midline Diabetes mellitus type II, controlled (HCC) metformin Diverticulosis Esophageal reflux 1999 RESOLVED due to diet change Esophagitis, unspecified Essential hypertension, benign 1998 Fatty liver Fibromuscular dysplasia (HCC) renal and carotid arteries; follows with [facility] Fibromyalgia Giant cell arteritis (HCC) 2020 Heart palpitations nadalol helps Incomplete uterovaginal prolapse Obesity, unspecified Osteoarthrosis, unspecified whether generalized or localized, lower leg bilateral knees > hips Other and unspecified hyperlipidemia 1998 has been on meds in past, had tolerated Lipitor but afraid of statins Phlebitis and thrombophlebitis of superficial vessels of lower extremities 3rd child 1985, right leg Renal stones Varicose veins of other sites 2006 h/o varicose veins onset with first age of 20, had total of 4 pregnancies last was twins.First Vein stripping right leg surgery was 1992 at [facility], Second surgery 1993 to left leg (h/o hernia repair reason for one leg at a time). Here for possible laser surgery to remove lumpy and rope type veins. PAST SURGICAL HISTORY Procedure Laterality Date COLSC FLX W/RMVL OF TUMOR POLYP LESION SNARE TQ 01/14/2010 DILATION & CURETTAGE DX&/THER NONOBSTETRIC 2006 Dilation & curettage-HYPERPLASIA, likely will have hysterectomy within next year EGD TRANSORAL BIOPSY SINGLE/MULTIPLE 01/14/2010 EXC CYST/ABERRANT BREAST TISSUE OPEN 1/> LESION 01/03/2010 Left breast, benign FASCIECTOMY PLANTAR FASCIA PARTIAL SPX 1993 FOOT Left plantar fasciitis release HYSTERECTOMY HX 05/03/2020 [facility], uterosacral vaginal vault suspension, A/P repair IUD INSERTION (HYDRAULIC TESTER DEPT)_*FL 05/14/2008 Mirena, removed JOINT REPLACEMENT HX total right knee LIG/TRNSXJ FLP TUBE ABDL/VAG APPR UNI/BI 1987 Tubal ligation NOVASURE 01/2010 PAST SURGICAL HISTORY OF 1983 EXPLORATORY LAP PAST SURGICAL HISTORY OF 1992 BILAT LEG-VEIN STRIPPING PAST SURGICAL HISTORY OF 10/2007, 12/2007 Bilat leg-vein stripping PAST SURGICAL HISTORY OF Right 01/24/2021 Right bicep repair PAST SURGICAL HISTORY OF Right 2018 TKA REMOVE INTRAUTERINE DEVICE 2011 Expelled 3 weeks after insertion ROTATOR CUFF REPAIR Right bicept reattachment RPR UMBILICAL HRNA 5 YRS/> REDUCIBLE 1993, 1989, 2007 Repaired 3 Times VAGINOSCOPY 09/25/2013 [facility] ALLERGIES Cymbalta [Duloxetine], Keflex [Cephalexin], Monosodium Glutamate (Msg), Oxycodone, RabbitDander, Splenda [Other], [place]'s Wort, Atorvastatin, Crestor [Rosuvastatin], Gabapentin, Niacin,Niacinamide, Cats, Aspartame, Doxycycline, Erythromycin, Glutamic Acid, Latex, Sucralose, and Zithromax [Azithromycin] MEDICATIONS Current Outpatient Medications Medication Sig methocarbamol (ROBAXIN) 500 mg tablet Take 2 tablets by mouth three times daily. As needed for pain ibuprofen (MOTRIN) 800 mg tablet Take 1 tablet by mouth every 6 hours as needed for pain. predniSONE (DELTASONE) 5 mg tablet Take 1 tablet by mouth once daily. nadolol (CORGARD) 80 mg tablet Take 0.5 tablets by mouth twice daily. lisinopril (ZESTRIL, PRINIVIL) 20 mg tablet Take 2 tablets by mouth once daily. nortriptyline (PAMELOR) 25 mg capsule Take 1 capsule by mouth daily at bedtime. metFORMIN ER (GLUCOPHAGE XR) 500 mg 24 hr tablet Take 3 tablets by mouth daily with breakfast. coenzyme Q10 (CO Q-10) 100 mg cap capsule Take 2 capsules by mouth once daily. amLODIPine (NORVASC) 5 mg tablet Take 1 tablet by mouth once daily. ondansetron (ZOFRAN) 4 mg tablet Take 1 tablet by mouth every 8 hours as needed. FREESTYLE HUGH 14 DAY SENSOR kit apply NEW SENSOR EVERY 14 DAYS TO UPPER ARM lactobacillus acidophilus 100 mg (1 billion cell) cap(s) Take 1 capsule by mouth once daily. calcium carbonate/vitamin D3 (CALCIUM WITH VITAMIN D ORAL) Take 1 tablet by mouth twice daily. 600 mg calcium with 1000mg vitamin D3 biotin 1 mg cap Take by mouth. aspirin, enteric coated (ASPIR-LOW) 81 mg EC tablet Take 1 tablet by mouth once daily. ursodiol (ACTIGALL) 300 mg capsule Take 300 mg by mouth twice daily. albuterol HFA (PROVENTIL HFA, VENTOLIN HFA) 90 mcg/actuation inhaler Inhale 2 Puffs as instructed every 4 hours as needed. blood sugar diagnostic (TRUE METRIX GLUCOSE TEST STRIP) test strip Use 4-6 times daily to check blood sugar. Dx:E11.9 insulin:No hydroCHLOROthiazide (HYDRODIURIL, ESIDRIX) 50 mg tablet take 1 tablet by mouth once daily if needed(Patient taking differently: 25 mg.) omeprazole (PRILOSEC) 20 mg capsule Take 1 capsule by mouth daily before breakfast. 1/2 hr before meal. lancets (FREESTYLE LANCETS) 28 gauge misc Test blood sugar(s) one times daily. Dx: Type 2 DM - Controlled E11.9 Insulin: No loratadine (CLARITIN) 10 mg ORAL tablet Take 1 tablet by mouth once daily. (Patient taking differently: Take 10 mg by mouth as needed.) No current facility-administered medications for this visit. FAMILY HISTORY Problem Relation Age of Onset Lipids Mother High Cholesterol Hypertension Mother Osteoporosis Mother Arthritis Mother Cataract Mother resolved with surgery other (Other) Mother Meniere's Psychiatry Father depression, committed suicide age 49 Hypertension Son other (hypogonadism) Son other (osteoarthritis) Son other (IBS) Son Cancer Maternal Grandfather leukemia Heart Maternal Grandfather Alzheimer's Disease Paternal Grandmother Osteoporosis Maternal Grandmother Thyroid Maternal Grandmother Thyroid Daughter Strabismus Daughter other (turners) Daughter other (aortic stenosis) Daughter Thyroid Daughter other (celiac disease) Daughter other (Fibromyalgia) Daughter other (MVP) Daughter Thyroid Daughter other (MVP) Daughter Diabetes Paternal Aunt Social History Tobacco Use Smoking status: Former Packs/day: 1.00 Years: 35.00 Pack years: 35.00 Types: Cigarettes Quit date: 03/14/2014 Years since quittin.1 Smokeless tobacco: Never Tobacco comments: occasional Vaping Use Vaping Use: Never used Substance Use Topics Alcohol use: Yes Comment: rarely Drug use: No REVIEW OF SYSTEMS GENERAL: No weight loss, malaise or fevers/chills HEENT: Negative for frequent or significant headaches, No changes in hearing or vision. NECK: Negative for lumps, goiter, pain and significant neck swelling RESPIRATORY: Negative for cough, hemoptysis, wheezing, dyspnea or shortness of breath CARDIOVASCULAR: Negative for chest pain, leg swelling, orthopnea, or palpitations GI: No nausea, vomiting, or diarrhea/constipation. No hematochezia/melena. No heartburn or reflux symptoms. : No history of dysuria, frequency or incontinence MUSCULOSKELETAL: Negative for joint pain or swelling. SKIN: Negative for lesions, rash, and itching ENDOCRINE: Negative for cold or heat intolerance, polyuria, polydipsia and goiter NEURO: + Headache MOOD: Negative for depression, anxiety, or suicidal ideation. EXAM: BP 150/98 Pulse 74 Resp 16 Wt 88.5 kg (195 lb) LMP 04/17/2016 (Exact Date) SpO2 97% BMI30.54 kg/m PHYSICAL EXAM: General Appearance: Well appearing, alert, in no acute distress, well-hydrated, well nourished. Skin: Skin color, texture, turgor normal, no suspicious rashes or lesions. Head: Normocephalic, no masses, lesions, tenderness or abnormalities. Eyes: Anicteric sclera. Extraocular movements are intact. Lungs: Lungs clear to auscultation. No wheezing, rhonchi, rales. Heart: RRR without murmur, gallop, or rubs. No ectopy. Extremities: No deformities, edema, skin discoloration, clubbing or cyanosis. Good capillary refill. Peripheral Pulses: Normal, Capillary refill <2secs, strong peripheral pulses, Pulses palpable. Neurologic: Gait normal. Reflexes normal and symmetric. Sensation grossly intact. ASSESSMENT/PLAN: 1. HYPERTENSION - ICD9: 401.1, ICD10: I10 - poor control - Concerns at home BP cuff may be inaccurate. - Continue current medication(s) - Increase amlodipine (Norvasc) 10 mg daily. - Recommended regular aerobic exercise. - Recommend home blood pressure monitoring, to bring results in on next visit - Follow up in 1 month for BP recheck. - Goal of BP <130/80 - AMLODIPINE 10 MG TABLET Follow up in 1 month or sooner as needed. Discussed treatment plan and patient voices understanding. Patient's questions answered appropriately. Medications and potential side effects were discussed and patient voices understanding. Xochilt Fernandez APRN.CNP This note was partially generated using Snip2Code voice recognition system. Note was reviewed for accuracy. There may be minor misspellings or grammar miscues with Snip2Code voice recognition. documented in this encounterTr[facility]10-17-2022 Miscellaneous Notes* Telephone Encounter - Jaskaran Quiroz APRN.CNP - 04/24/2022 8:44 AM EDT The following approved medication requests have been transmitted electronically. Requested Prescriptions Pending Prescriptions Disp Refills methocarbamol (ROBAXIN) 500 mg tablet 180 tablet 2 Sig: Take 2 tablets by mouth three times daily. As needed for pain Jaskaran Quiroz APRN.CNP * Telephone Encounter - Mari Pederson LPN - 04/24/2022 8:12 AM EDT Patient phones requesting refills as follows: Requested Prescriptions Pending Prescriptions Disp Refills methocarbamol (ROBAXIN) 500 mg tablet 180 tablet 2 Sig: Take 2 tablets by mouth three times daily. As needed for pain FARAZ-01/20/22 Labs-04/06/22 NOV-06/30/22 med filled 12/07/21 Please review and advise. Mari Pederson LPN documented in this encounterTrinity [facility]09-19-2022 History of Present illness Narrative* Tom Soriano MD - 03/27/2022 10:09 AM EDTAssociated Order(s): Large Joint Arthro/Inj: L knee joint Post-Procedure Diagnose(s): Primary osteoarthritis of left knee; Acute pain of left knee; Contusionof left knee, initial encounter Tom Soriano MD Department of Orthopaedics Orthopaedics [address] [facility] [address] Dept: [phone] Dept March 27, [address] Grady for an opinion regarding left knee pain, s/p fall. My final recommendations will be communicated back to the requesting physician by way of shared Medical record or letter to requesting physician via US mail. CHIEF COMPLAINT: Established Patient and Pain of the Left Knee HPI Patient here today left knee injury. She fell on her knees at work on 02/25/2022. She has difficulty bearing weight on the leg after sitting. She has been wearing a knee brace with some relief. She is no longer working at the job she was injured at. ASSESSMENT: M17.12 Primary osteoarthritis of left knee (primary encounter diagnosis) M25.562 Acute pain of left knee S80.02XA Contusion of left knee, initial encounter PLAN: We discussed cortisone injection for now. We also reviewed some information about geniculate block.If she continues to not want to have replacement, we would try to get her in with pain management to have further discussions about this. Ms. Crystal Thakur was advised as to contrast therapies and/or to take analgesics/anti-inflammatories as needed and all contraindications were reviewed. OBJECTIVE: Ms. Crystal Thakur is a pleasant 62 year old in no apparent distress. Gen:LMP 04/17/2016 nl development, non obese, no deformities ENT: Normocephalic, normal hearing, moist mucosa CV: Pulses:DP/PT= 2+ and symmetric, capillary refill < 2 secs, no peripheral edema/varicosities Skin: no rash, bruising or lesions. Good turgor. Psych: cooperative and appropriate, alert and oriented x 3, good mood and affect. Musculoskeletal: Tender over the lateral facet of the knee. Some mild effusion. Lateral joint line tenderness, medial as well. Some fullness in the popliteal area. Crepitance pain on patellar compression testing of the patella. Range of motion of the knee is approximately 5-120 degrees. correctable varus to neutral. Large Joint Arthro/Inj: L knee joint Informed Consent Consent Obtained: Verbal [place] Protocol A moment to CARE was completed. SIGN IN Sign in communication not applicable due to emergent procedure. Personnel directly involved with the procedure wore the appropriate PPE. Special Equipment: N/A Patient/Surrogate Stated/Verified: Patient name, Date of , Relevant allergies and Intended procedure TIME OUT Intended patient and procedure match the source document(s). Relevant labs, photos, and/or imaging studies have been reviewed. Correct side/site marked and visible. Medications required for procedure verified. No fire risk assessment and interventions applicable. No implant(s) inserted. 03/27/2022 11:04 AM The procedure site was prepped in the usual sterile fashion. Site: L knee joint Medications: 6 mg betamethasone acetate-betamethasone sodium phosphate 6 mg/mL Anesthetics: 4 mL lidocaine (PF) 10 mg/mL (1 %) Outcome: Tolerated well, no immediate complications Post-injection instructions were reviewed with the patient and the patient voiced understanding of these instructions. SIGN OUT No specimen collected. All instruments, equipment, possible retained foreign bodies accounted for. Post-procedure follow-up management communicated and Plan of Care Visit completed when applicable Imaging: IMPRESSION: 1. Osseous demineralization. 2. Left knee osteoarthritis. 3. Status post total right knee replacement without radiographic evidence of hardware complications. 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: [facility] Transcribe Date/Time: Mar 28 2022 9:51A Dictated by : RAMONE VILLASEÑOR MD This examination was interpreted and the report reviewed and electronically signed by: RAMONE VILLASEÑOR MD on Mar 28 2022 9:58AM EST Results-Findings * * *Final Report* * * DATE OF EXAM: Mar 27 2022 9:54AM WRX [id number] - XR KNEE 4V AP/PA BOTH+LAT/ANA LT / PROCEDURE REASON: Left knee pain, unspecified chronicity * * * * Physician Interpretation * * * * CLINICAL INDICATION: Knee pain TECHNIQUE: AP/PA/merchant radiographs of both knees and lateral radiograph of the left knee COMPARISON: Radiographs dated September 09, 2018 FINDINGS: Left knee: Trace fluid in the left suprapatellar joint space. Osseous demineralization. No acute fracture or dislocation. Moderate medial compartmental joint space narrowing. Moderate to severe patellofemoral compartmental joint space narrowing particularly along the lateral patellar facet. Tricompartmental osteophyte production. Superior and inferior patellar enthesophytes. Suggestion of a small loose body in the region of the tibial spines. Right knee: Osseous demineralization. Status post total right knee replacement without radiographic evidence of hardware complications. Supporting Subjective Information Below: Past Surgical History: PAST SURGICAL HISTORY Procedure Laterality Date COLSC FLX W/RMVL OF TUMOR POLYP LESION SNARE TQ 01/14/2010 DILATION & CURETTAGE DX&/THER NONOBSTETRIC 2006 Dilation & curettage-HYPERPLASIA, likely will have hysterectomy within next year EGD TRANSORAL BIOPSY SINGLE/MULTIPLE 01/14/2010 EXC CYST/ABERRANT BREAST TISSUE OPEN 1/> LESION 01/03/2010 Left breast, benign FASCIECTOMY PLANTAR FASCIA PARTIAL SPX 1992 FOOT Left 1989' plantar fasciitis release HYSTERECTOMY HX 05/03/2020 TV[facility], uterosacral vaginal vault suspension, A/P repair IUD INSERTION (HYDRAULIC TESTER DEPT)_*FL 05/14/2008 Mirena, removed JOINT REPLACEMENT HX total right knee LIG/TRNSXJ FLP TUBE ABDL/VAG APPR UNI/BI 1988 Tubal ligation NOVASURE 01/2010 PAST SURGICAL HISTORY OF 1984 EXPLORATORY LAP PAST SURGICAL HISTORY OF 1992 BILAT LEG-VEIN STRIPPING PAST SURGICAL HISTORY OF 10/2007, 12/2007 Bilat leg-vein stripping PAST SURGICAL HISTORY OF Right 01/24/2021 Right bicep repair PAST SURGICAL HISTORY OF Right 2018 TKA REMOVE INTRAUTERINE DEVICE 2011 Expelled 3 weeks after insertion ROTATOR CUFF REPAIR Right bicept reattachment RPR UMBILICAL HRNA 5 YRS/> REDUCIBLE 1993, 1989, 2007 Repaired 3 Times VAGINOSCOPY 09/25/2013 [facility] Medications: Current Outpatient Medications Medication Sig ibuprofen (MOTRIN) 800 mg tablet Take 1 tablet by mouth every 6 hours as needed for pain. nadolol (CORGARD) 80 mg tablet Take 0.5 tablets by mouth twice daily. lisinopril (ZESTRIL, PRINIVIL) 20 mg tablet Take 2 tablets by mouth once daily. methocarbamol (ROBAXIN) 500 mg tablet Take 2 tablets by mouth three times daily. As needed for pain nortriptyline (PAMELOR) 25 mg capsule Take 1 capsule by mouth daily at bedtime. metFORMIN ER (GLUCOPHAGE XR) 500 mg 24 hr tablet Take 3 tablets by mouth daily with breakfast. coenzyme Q10 (CO Q-10) 100 mg cap capsule Take 2 capsules by mouth once daily. amLODIPine (NORVASC) 5 mg tablet Take 1 tablet by mouth once daily. lactobacillus acidophilus 100 mg (1 billion cell) cap(s) Take 1 capsule by mouth once daily. calcium carbonate/vitamin D3 (CALCIUM WITH VITAMIN D ORAL) Take 1 tablet by mouth twice daily. 600 mg calcium with 1000mg vitamin D3 biotin 1 mg cap Take by mouth. aspirin, enteric coated (ASPIR-LOW) 81 mg EC tablet Take 1 tablet by mouth once daily. ursodiol (ACTIGALL) 300 mg capsule Take 300 mg by mouth twice daily. albuterol HFA (PROVENTIL HFA, VENTOLIN HFA) 90 mcg/actuation inhaler Inhale 2 Puffs as instructed every 4 hours as needed. hydroCHLOROthiazide (HYDRODIURIL, ESIDRIX) 50 mg tablet take 1 tablet by mouth once daily if needed(Patient taking differently: 25 mg.) omeprazole (PRILOSEC) 20 mg capsule Take 1 capsule by mouth daily before breakfast. 1/2 hr before meal. loratadine (CLARITIN) 10 mg ORAL tablet Take 1 tablet by mouth once daily. (Patient taking differently: Take 10 mg by mouth as needed.) predniSONE (DELTASONE) 5 mg tablet Take 1 tablet by mouth once daily. ondansetron (ZOFRAN) 4 mg tablet Take 1 tablet by mouth every 8 hours as needed. FREESTYLE HUGH 14 DAY SENSOR kit apply NEW SENSOR EVERY 14 DAYS TO UPPER ARM blood sugar diagnostic (TRUE METRIX GLUCOSE TEST STRIP) test strip Use 4-6 times daily to check blood sugar. Dx:E11.9 insulin:No lancets (FREESTYLE LANCETS) 28 gauge misc Test blood sugar(s) one times daily. Dx: Type 2 DM - Controlled E11.9 Insulin: No No current facility-administered medications for this visit. Allergies: Cymbalta [Duloxetine], Keflex [Cephalexin], Monosodium Glutamate (Msg), Oxycodone, Rabbit Dander, Splenda [Other], Huan's Wort, Atorvastatin, Crestor [Rosuvastatin], Gabapentin, Niacin, Niacinamide, Cats, Aspartame, Doxycycline, Erythromycin, Glutamic Acid, Latex, Sucralose, and Zithromax [Azithromycin] ROS: General (negative for fatigue, malaise, weight loss/gain) HEENT (negative for headache, earache, recent vision changes, sinus pain, sore throat) Respiratory (no recent shortness of breath, hemoptysis) CV (negative for chest tightness, palpitations) Musculoskeletal (see HPI) Psych (no depression, anxiety) Tom Soriano MD [facility] History of Present illness Narrative* Kian Aceves, PT - 02/03/2022 11:26 AM EDT Episode Visit Count: 6 Therapist That Will Oversee The Plan Of Care: Kian Aceves Start of Care Date: 11/01/21 Onset Date: 10/01/21 Plan of Care Certification Date: 01/05/22 Next Certification Due Date: 02/09/22 Patient Identified by Name and Date of : Yes REHABILITATION AND SPORTS THERAPY PHYSICAL THERAPY DISCONTINUANCE OF CARE PLAN OF CARE UPDATE: Assessment: Crystal Lorenzo Thakur is discontinued from Physical Therapy services due to goal achievementand maximal benefit.. Patient was seen for 6 visits from Start of Care Date: 11/01/21 to 02/03/2022 and treatment included: Therapeutic exercise, Manual therapy and Self-longterm management. Pt feelsconfident with continuing on with the HEP independently. Goals updated 02/03/2022 Goals for Episode of Care: created on 11/01/21 through 12/27/21 Pt will report 80% improvements of LBP in 8 weeks or less to improve QOL - MET Pt will report overall improvement of R shoulder pain by 80% within 12 weeks for ease of lifting, reaching, and getting dressed. - MET Pt will report improved tolerance to standing in one position for better tolerance for cleaning - MET [place] in home exercise program. - MET so far SUBJECTIVE: Patient Reason for Visit: Pt states she has been doing well with the back and shoulder.The shoulders and back are fine. Pt can lift and garden. Functional Limitations: nothing Pain: Pain Pain Level: 0 Pain Location: Back Additional Pain Information : Location 2 Pain Level 2: 0 Pain Location 2: Shoulder - Right PROMIS Scales Higher is Better 12/27/2021 01/03/2022 02/03/2022 Phys Func - Score - 43 (mild dysfunction) 41 (mild dysfunction) Phys Func - Percentile - 24 % 18 % Social Roles - Score - 45 (within normal limits) 46 (within normal limits) Social Role - Percentile - 31 % 34 % GH Physical - Score Incomplete - - GH Physical - Percentile - - - GH Mental - Score Incomplete - - GH Mental - Percentile - - - Self-Eff Symptom - Score - 41 (Average) 41 (Average) Self-Eff Symptom - Percentile - 18 % 18 % T-scores: mean of general population = 50. 5 points is clinically meaningfully difference Percentiles provide an indication of how the patient's score ranks in relation to the general population. Higher percentile rankings indicate better function/quality of life. 50th percentile is the average of the general population and indicates half of respondents had a worse score. Lower is Better 11/28/2021 01/03/2022 02/03/2022 Fatigue - Score 51 (within normal limits) 53 (within normal limits) 57 (mild) Fatigue - Percentile 46 % 38 % 24 % T-scores: mean of general population = 50. 5 points is clinically meaningfully difference Percentiles provide an indication of how the patient's score ranks in relation to the general population. Higher percentile rankings indicate better function/quality of life. 50th percentile is the average of the general population and indicates half of respondents had a worse score. OBJECTIVE MEASURES WITH LEVEL OF FUNCTION: Lumbar Spine AROM Lumbar Flexion: Normal Lumbar Extension: Normal Lumbar R Side-Bend: Normal Lumbar L Side-Bend: Normal Lumbar R Rotation: Normal Lumbar L Rotation: Normal LE AROM Tested?: Yes Cervical Spine ROM Cervical Flexion AROM: Normal Cervical Extension AROM: Minimal limitation Cervical Side-Bend Right AROM: Normal Cervical Side-Bend Left AROM: Normal Cervical Rotation Right AROM: Normal Cervical Rotation Left AROM: Normal UE AROM R Shoulder Flex: 175 Degrees R Shoulder ABduction: 175 Degrees R Shoulder Internal Rotation (Functional): Thumb to T7 L Shoulder Internal Rotation (Functional): Thumb to T6 LE AROM R LE AROM: WNL L LE AROM: WNL UE and Cervical Strength R Shoulder Shrug (C4): 5/5 R Shoulder Flexion: 4+/5 R Shoulder Abduction (C5): 5/5 R Shoulder Internal Rotation: 5/5 R Shoulder External Rotation: 5/5 TREATMENT: Therapeutic Exercise: 1: All objective measures taken this session 2: Standing shoulder ER VTB x 10 reps 3: Standing shoulder IR VTB x 10 reps 4: Standing shoulder VTb x 3 (too painful) 5: Standing shoulder abd BTB x 6 reps (a little pain) Skilled Intervention: Patient was educated in proper exercise technique and purpose for exercises. Correct performance of therapeutic exercises was facilitated with verbal and visual cuing. Billing Therapeutic Exercise Treatment Minutes: 42 Total Treatment Time Minutes (timed/untimed): 42 Kian Aceves PT documented in this encounterTr[facility]07[facility] Miscellaneous Notes* Telephone Encounter - Kinjal Mistry Ma - 01/27/2022 11:55 AM EDT Pt notified of results via [email or web address]. Kinjal Mistry Ma * Telephone Encounter - Erum Holt RN - 01/26/2022 12:56 PM EDT Called and left a voicemail for the Patient to call back and ask for a nurse to receive the providers message. Erum Holt RN * Telephone Encounter - Xochilt Fernandez APRN.CNP - 01/26/2022 12:40 PM EDT Can you please call the patient and let her know that her x-ray of her ankle and tib/fibula was relatively normal, no fracture was noted. I would continue with supportive care at home. May apply ice to the area. Please let me know if she has any questions. Thank you. Xochilt Fernandez APRN.CNP documented in this encounterTr[facility]07-[facility]22 History of Present illness Narrative* Idalia Doe RT(R) - 01/20/2022 8:50 AM EDT Radiology Service Progress Note PATIENT NAME: Crystal Thakur DATE OF SERVICE: January 20, 2022 TIME: 9:14 AM PATIENT IDENTITY VERIFICATION COMPLETED USING TWO (2) IDENTIFIERS: Name and Date of confirmedby patient verbally. FALL SCREENING: Has the patient had 2 falls in the last year or 1 fall with injury or currently using an Ambulatory Assistive Device (Walker, Cane, Wheelchair, Crutches, etc.)? No PATIENT GENDER DATA: Female. status: : No status: NO. PATIENT RELEVANT IMPLANT DATA REVIEWED: Not Applicable RADIOLOGY DEPARTMENT: General X-ray: Exam(s) Completed: Lower Extremity X- Ray(s): Tibia Fibula, Right and Ankle, Right and Wt. Bearing PERIPHERAL IV DATA: Not applicable SIGNED BY: RT Elvira(R) January 20, 2022 9:14 AM documented in this encounterTr[facility]07-[facility]-2022 Instructions* Patient Instructions* Xochilt Fernandez APRN.SHELLFISH GROWER - 01/20/2022 8:36 AM EDT 1.) Get xrays completed today. 2.) Recommend continuing with NSAID's and RICE therapy. 3.) May have consult with Ortho pending test results. 4.) Follow up pending test results or sooner as needed. R.I.C.E. The general care of your injury includes the following: Resting, Icing, Compressing and Elevating the injured area. Remember this as "RICE." REST: Limit the use of the injured body part. ICE: By applying ice to the affected area, swelling and pain can be reduced. Place some ice cubes in a re-sealable (Ziploc) bag and add some water. Put a thin washcloth between the bag and your skin.Apply the ice bag to the area for at least 20 minutes. Do this at least 4 times per day. Using the ice for longer times and more frequently is OK. NEVER APPLY ICE DIRECTLY TO THE SKIN. COMPRESS: Compression means to apply pressure around the injured area such as with a splint, cast or an francy bandage. Compression decreases swelling and improves comfort. Compression should be tight enough to relieve swelling but not so tight as to decrease circulation. Increasing pain, numbness, tingling, or change in skin color, are all signs of decreased circulation. ELEVATE: Elevate the injured part. For example, elevate your foot by placing it on a chair while sitting, or propping it up on pillows when lying down. documented in this encounterTr[facility]07-[facility] History of Present illness Narrative* Xochilt Fernandez APRN.CNP - 01/20/2022 8:20 AM EDT This is a 61 year old female who presents today with: Patient presents with: Acute Visit: right leg. injury ER follow HISTORY OF PRESENT ILLNESS: Crystal Thakur is a 61 year old female. Patient presents with: Acute Visit: right leg. injury ER follow HOSPITAL/ER FOLLOW UP: Reason for visit: Which facility: [facility] Date of visit: 01/17/2022 Diagnosis: Right leg pain Testing done: None Treatment given: None Patient presented to the ER for further evaluation after she had a screw fall on her right leg 6 days prior to ER visit. Up-to-date with Tdap. Current symptoms: A couple of months ago injured right ankle which healed. Then after this injury with puncture wound noticed right ankle and foot is swollen/tender. Refers that she did not fall downwith the puncture wound but is concerned that old injury is inflamed or not healing. Right bellamy is still swollen but able to ambulate without any issues. Has tingling in the bellamy down to the ankle. 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 Abnormal Pap smear of cervix 09/11/2013 [facility], Seeing HYDRAULIC TESTER Allergic rhinitis Anemia, unspecified Due to heavy menstrual cycles Benign neoplasm of colon 08/2009 POLYPS Cervical high risk human papillomavirus (HPV) DNA test positive 09/18/2013 Cystocele, midline Diabetes mellitus type II, controlled (HCC) metformin Diverticulosis Esophageal reflux 1999 RESOLVED due to diet change Esophagitis, unspecified Essential hypertension, benign 1998 Fatty liver Fibromuscular dysplasia (HCC) renal and carotid arteries; follows with [facility] Fibromyalgia Giant cell arteritis (HCC) 2020 Heart palpitations nadalol helps Incomplete uterovaginal prolapse Obesity, unspecified Osteoarthrosis, unspecified whether generalized or localized, lower leg bilateral knees > hips Other and unspecified hyperlipidemia 1998 has been on meds in past, had tolerated Lipitor but afraid of statins Phlebitis and thrombophlebitis of superficial vessels of lower extremities 3rd child 1985, right leg Renal stones Varicose veins of other sites 2006 h/o varicose veins onset with first age of 20, had total of 4 pregnancies last was twins.First Vein stripping right leg surgery was 1992 at [facility], Second surgery 1993 to left leg (h/o hernia repair reason for one leg at a time). Here for possible laser surgery to remove lumpy and rope type veins. PAST SURGICAL HISTORY Procedure Laterality Date COLSC FLX W/RMVL OF TUMOR POLYP LESION SNARE TQ 01/14/2010 DILATION & CURETTAGE DX&/THER NONOBSTETRIC 2006 Dilation & curettage-HYPERPLASIA, likely will have hysterectomy within next year EGD TRANSORAL BIOPSY SINGLE/MULTIPLE 01/14/2010 EXC CYST/ABERRANT BREAST TISSUE OPEN 1/> LESION 01/03/2010 Left breast, benign FASCIECTOMY PLANTAR FASCIA PARTIAL SPX 1992 FOOT Left 1989' plantar fasciitis release HYSTERECTOMY HX 05/03/2020 TV[facility], uterosacral vaginal vault suspension, A/P repair IUD INSERTION (HYDRAULIC TESTER DEPT)_*FL 05/14/2008 Mirena, removed JOINT REPLACEMENT HX total right knee LIG/TRNSXJ FLP TUBE ABDL/VAG APPR UNI/BI 1988 Tubal ligation NOVASURE 01/2010 PAST SURGICAL HISTORY OF 1984 EXPLORATORY LAP PAST SURGICAL HISTORY OF 1992 BILAT LEG-VEIN STRIPPING PAST SURGICAL HISTORY OF 10/2007, 12/2007 Bilat leg-vein stripping PAST SURGICAL HISTORY OF Right 01/24/2021 Right bicep repair PAST SURGICAL HISTORY OF Right 2018 TKA REMOVE INTRAUTERINE DEVICE 2011 Expelled 3 weeks after insertion ROTATOR CUFF REPAIR Right bicept reattachment RPR UMBILICAL HRNA 5 YRS/> REDUCIBLE 1993, 1989, 2007 Repaired 3 Times VAGINOSCOPY 09/25/2013 [facility] ALLERGIES Cymbalta [Duloxetine], Keflex [Cephalexin], Monosodium Glutamate (Msg), Oxycodone, RabbitDander, Splenda [Other], Huan's Wort, Atorvastatin, Crestor [Rosuvastatin], Gabapentin, Niacin,Niacinamide, Cats, Aspartame, Doxycycline, Erythromycin, Glutamic Acid, Latex, Sucralose, and Zithromax [Azithromycin] MEDICATIONS Current Outpatient Medications Medication Sig ibuprofen (MOTRIN) 800 mg tablet Take 1 tablet by mouth every 6 hours as needed for pain. predniSONE (DELTASONE) 5 mg tablet Take 1 tablet by mouth once daily. nadolol (CORGARD) 80 mg tablet Take 0.5 tablets by mouth twice daily. lisinopril (ZESTRIL, PRINIVIL) 20 mg tablet Take 2 tablets by mouth once daily. methocarbamol (ROBAXIN) 500 mg tablet Take 2 tablets by mouth three times daily. As needed for pain nortriptyline (PAMELOR) 25 mg capsule Take 1 capsule by mouth daily at bedtime. metFORMIN ER (GLUCOPHAGE XR) 500 mg 24 hr tablet Take 3 tablets by mouth daily with breakfast. coenzyme Q10 (CO Q-10) 100 mg cap capsule Take 2 capsules by mouth once daily. amLODIPine (NORVASC) 5 mg tablet Take 1 tablet by mouth once daily. ondansetron (ZOFRAN) 4 mg tablet Take 1 tablet by mouth every 8 hours as needed. FREESTYLE HUGH 14 DAY SENSOR kit apply NEW SENSOR EVERY 14 DAYS TO UPPER ARM lactobacillus acidophilus 100 mg (1 billion cell) cap(s) Take 1 capsule by mouth once daily. calcium carbonate/vitamin D3 (CALCIUM WITH VITAMIN D ORAL) Take 1 tablet by mouth twice daily. 600 mg calcium with 1000mg vitamin D3 biotin 1 mg cap Take by mouth. aspirin, enteric coated (ASPIR-LOW) 81 mg EC tablet Take 1 tablet by mouth once daily. ursodiol (ACTIGALL) 300 mg capsule Take 300 mg by mouth twice daily. albuterol HFA (PROVENTIL HFA, VENTOLIN HFA) 90 mcg/actuation inhaler Inhale 2 Puffs as instructed every 4 hours as needed. blood sugar diagnostic (TRUE METRIX GLUCOSE TEST STRIP) test strip Use 4-6 times daily to check blood sugar. Dx:E11.9 insulin:No hydroCHLOROthiazide (HYDRODIURIL, ESIDRIX) 50 mg tablet take 1 tablet by mouth once daily if needed(Patient taking differently: 25 mg. ) omeprazole (PRILOSEC) 20 mg capsule Take 1 capsule by mouth daily before breakfast. 1/2 hr before meal. lancets (FREESTYLE LANCETS) 28 gauge misc Test blood sugar(s) one times daily. Dx: Type 2 DM - Controlled E11.9 Insulin: No loratadine (CLARITIN) 10 mg ORAL tablet Take 1 tablet by mouth once daily. (Patient taking differently: Take 10 mg by mouth as needed. ) No current facility-administered medications for this visit. FAMILY HISTORY Problem Relation Age of Onset Lipids Mother High Cholesterol Hypertension Mother Osteoporosis Mother Arthritis Mother Cataract Mother resolved with surgery other (Other) Mother Meniere's Psychiatry Father depression, committed suicide age 49 Hypertension Son other (hypogonadism) Son other (osteoarthritis) Son other (IBS) Son Cancer Maternal Grandfather leukemia Heart Maternal Grandfather Alzheimer's Disease Paternal Grandmother Osteoporosis Maternal Grandmother Thyroid Maternal Grandmother Thyroid Daughter Strabismus Daughter other (turners) Daughter other (aortic stenosis) Daughter Thyroid Daughter other (celiac disease) Daughter other (Fibromyalgia) Daughter other (MVP) Daughter Thyroid Daughter other (MVP) Daughter Diabetes Paternal Aunt Social History Tobacco Use Smoking status: Former Smoker Packs/day: 1.00 Years: 35.00 Pack years: 35.00 Types: Cigarettes Quit date: 03/14/2014 Years since quittin.8 Smokeless tobacco: Never Used Tobacco comment: occasional Vaping Use Vaping Use: Never used Substance Use Topics Alcohol use: Yes Comment: rarely Drug use: No REVIEW OF SYSTEMS GENERAL: No weight loss, malaise or fevers/chills HEENT: Negative for frequent or significant headaches, No changes in hearing or vision. NECK: Negative for lumps, goiter, pain and significant neck swelling RESPIRATORY: Negative for cough, hemoptysis, wheezing, dyspnea or shortness of breath CARDIOVASCULAR: Negative for chest pain, leg swelling, orthopnea, or palpitations GI: No nausea, vomiting, or diarrhea/constipation. No hematochezia/melena. No heartburn or reflux symptoms. : No history of dysuria, frequency or incontinence MUSCULOSKELETAL: + Right Bellamy/ankle pain SKIN: Negative for lesions, rash, and itching ENDOCRINE: Negative for cold or heat intolerance, polyuria, polydipsia and goiter NEURO: No history of headaches, syncope, paralysis, seizures or tremors MOOD: Negative for depression, anxiety, or suicidal ideation. EXAM: BP (P) 140/82 Pulse (P) 69 Resp (P) 16 Wt (P) 87.1 kg (192 lb) LMP 04/17/2016 (Exact Date) SpO2 (P) 97% BMI (P) 30.07 kg/m PHYSICAL EXAM: General Appearance: Well appearing, alert, in no acute distress, well-hydrated, well nourished. Head: Normocephalic, no masses, lesions, tenderness or abnormalities. Eyes: Anicteric sclera. Extraocular movements are intact. Lungs: Lungs clear to auscultation. No wheezing, rhonchi, rales. Heart: RRR without murmur, gallop, or rubs. No ectopy. Extremities: No deformities, edema, skin discoloration, clubbing or cyanosis. Good capillary refill. Musculoskeletal: + Right bellamy, puncture wound healing well, steri strip in place, mild ecchymosis with swelling noted. No erythema or increased warmth. Right ankle swollen, ecchymosis, and tender. Decreased ROM. Peripheral Pulses: Capillary refill <2secs, strong peripheral pulses, Pulses palpable. Neurologic: Gait normal. Reflexes normal and symmetric. Sensation grossly intact. ASSESSMENT/PLAN: 1. Hospital discharge follow-up - ICD9: V67.59, ICD10: Z09 (primary diagnosis) - Still having ongoing right bellamy and ankle pain. 2. Puncture wound - ICD9: 879.8, ICD10: T14.8XXA - Puncture wound is healing well but will get xray for further evaluation. - Continue with RICE therapy and NSAIDS. - XR TIBIA FIBULA 2V AP/LAT RIGHT - CONSULT TO ORTHOPAEDICS 3. Acute right ankle pain - ICD9: 719.47, 338.19, ICD10: M25.571 - IBUPROFEN 800 MG TABLET - XR ANKLE GENERAL 3V AP/LAT/OBL RIGHT - CONSULT TO ORTHOPAEDICS Follow-up pending test results or sooner as needed. Discussed treatment plan and patient voices understanding. Patient's questions answered appropriately. Medications and potential side effects were discussed and patient voices understanding. Xochilt Fernandez APRN.[employer] This note was partially generated using [employer] recognition system. Note was reviewed for accuracy. There may be minor misspellings or grammar miscues with StudyMaxon voice recognition. [facility] Hospital Discharge instructions Patient Education 01/17/2022 12:05:05 Understanding Plantar Fasciitis Understanding Plantar Fasciitis Plantar fasciitis is a condition that causes foot and heel pain. The plantar fascia is a tough bandof tissue that runs across the bottom of the foot from the heel to the toes. This tissue pulls on the heel bone. It supports the arch of the foot as it pushes off the ground. If the tissue becomes irritated or red and swollen (inflamed), it is called plantar fasciitis. How to say it PLAN-tuhr wy-geb-LY-tis What causes plantar fasciitis? Plantar fasciitis most often occurs from overusing the plantar fascia. The tissue may become damaged from activities that put repeated stress on the heel and foot. Or it may wear down over time with age and ankle stiffness. You are more likely to have plantar fasciitis if you: Do activities that require a lot of running, jumping, or dancing Have a job that requires being on your feet for long periods Are overweight or obese Have certain foot problems, such as a tight Achilles tendon, flat feet, or high arches Often wear poorly fitting shoes Symptoms of plantar fasciitis The condition most often causes pain in the heel and the bottom of the foot. The pain may occur when you take your first steps in the morning. It may get better as you walk throughout the day. But asyou continue to put weight on the foot, the pain often returns. Pain may also occur after standing or sitting for long periods. Treating plantar fasciitis Treatments for plantar fasciitis include: Resting the foot. This involves limiting movements that make your foot hurt. You may also need to avoid certain sports and types of work for a time. Using cold packs. Put an ice pack on the heel and foot to help reduce pain and swelling. Taking pain medicines. Prescription and eyvi-agd-iugbqmq pain medicines can help relieve pain and swelling. Using heel cups or foot inserts (orthotics). These are placed in the shoes to help support the heelor arch and cushion the heel. You may also be told to buy proper-fitting shoes with good arch support and cushioned soles. Taping the foot. This supports the arch and limits the movement of the plantar fascia to help relieve symptoms. Wearing a night splint. This stretches the plantar fascia and leg muscles while you sleep. This mayhelp relieve pain. Doing exercises and physical therapy. These stretch and strengthen the plantar fascia and the muscles in the leg that support the heel and foot. Getting shots of medicine into the foot. These may help relieve symptoms for a time. Having surgery. This may be needed if other treatments fail to relieve symptoms. During surgery, the surgeon may partially cut the plantar fascia to release tension. Possible complications of plantar fasciitis Without proper care and treatment, healing may take longer than normal. Also, symptoms may continueor get worse. Over time, the plantar fascia may be damaged. This can make it hard to walk or even stand without pain. When to call your healthcare provider Call your healthcare provider right away if you have any of these: Fever of 100.4 F (38 C) or higher, or as directed Symptoms that don t get better with treatment, or get worse New symptoms, such as numbness, tingling, or weakness in the foot [id number] [employer] [place] [address]. All rights reserved. This information is not intended as a substitute for professional medical care. Always follow yourhealthcare professional's instructions. Follow Up Care 01/17/2022 11:28:51 With:Go to emergency room if symptoms worsen Address:Unknown When:2-4 days With:GABBIE GRADY MD Address: [address] [place] [phone] When:2-4 days [facility] 07-12-2022 Note Discharge Instructions Thank you for allowing [facility] to assist you with your healthcare needs. The following is importantdischarge information regarding your hospital visit. Diagnosis from Today's Visit Right foot injury Plantar fasciitis Foot pain-swelling Leg injury, lower - Minor What to Do Next Instructions from Your Care Team No qualifying data available. Post Acute Orders No qualifying data available. You Need to Schedule the Following Appointments Follow Up with Go to emergency room if symptoms worsen When Within 2-4 days Follow Up with GABBIE GRADY MD When Within 2-4 days Where: [address] [facility] [place] [address]- Allergies Aspartame (Atorvastatin, Atorvastatin) Cats Cymbalta Latex MSG Niacinamide Splenda Huan's wort Zithromax atorvastatin doxycycline erythromycin niacin Medications Please ask your primary doctor or pharmacist before taking any other medication not listed, including over the counter drugs, herbal medications, vitamins and or supplements as they may interact withyour home medications. What How Much When Why Instructions Last Dose Unchanged amLODIPine (amLODIPine 5 mg oral tablet) Unchanged aspirin (Aspirin Enteric Coated 81 mg oral delayed release tablet) Unchanged hydroCHLOROthiazide (hydroCHLOROthiazide 50 mg oral tablet) Unchanged LORazepam (Ativan 0.5 mg oral tablet) 1 tab(s) by mouth Three (3) times a day as needed for for anxiety Hypertension Duration: 3 Days Unchanged metFORMIN (metFORMIN 500 mg oral tablet, extended release) Unchanged Misc Medication ([employer] [facility] Q-10 100 MG SOFTGEL) Unchanged nadolol (nadolol 80 mg oral tablet) Unchanged nortriptyline (nortriptyline 10 mg oral capsule) Please take this list to your next doctor s visit. Bring all medications you take, including over the counter medications, herbals and other supplements with you to your doctor s visit. Patients and families are reminded to discard old lists and to update any records with all medication providers or retail pharmacies. Education Materials Understanding Plantar Fasciitis Plantar fasciitis is a condition that causes foot and heel pain. The plantar fascia is a tough bandof tissue that runs across the bottom of the foot from the heel to the toes. This tissue pulls on the heel bone. It supports the arch of the foot as it pushes off the ground. If the tissue becomes irritated or red and swollen (inflamed), it is called plantar fasciitis. How to say it PLAN-tuhr ru-ggc-YO-tis What causes plantar fasciitis? Plantar fasciitis most often occurs from overusing the plantar fascia. The tissue may become damaged from activities that put repeated stress on the heel and foot. Or it may wear down over time with age and ankle stiffness. You are more likely to have plantar fasciitis if you: Do activities that require a lot of running, jumping, or dancing Have a job that requires being on your feet for long periods Are overweight or obese Have certain foot problems, such as a tight Achilles tendon, flat feet, or high arches Often wear poorly fitting shoes Symptoms of plantar fasciitis The condition most often causes pain in the heel and the bottom of the foot. The pain may occur when you take your first steps in the morning. It may get better as you walk throughout the day. But asyou continue to put weight on the foot, the pain often returns. Pain may also occur after standing or sitting for long periods. Treating plantar fasciitis Treatments for plantar fasciitis include: Resting the foot. This involves limiting movements that make your foot hurt. You may also need to avoid certain sports and types of work for a time. Using cold packs. Put an ice pack on the heel and foot to help reduce pain and swelling. Taking pain medicines. Prescription and wmiz-xsd-fhwxspl pain medicines can help relieve pain and swelling. Using heel cups or foot inserts (orthotics). These are placed in the shoes to help support the heelor arch and cushion the heel. You may also be told to buy proper-fitting shoes with good arch support and cushioned soles. Taping the foot. This supports the arch and limits the movement of the plantar fascia to help relieve symptoms. Wearing a night splint. This stretches the plantar fascia and leg muscles while you sleep. This mayhelp relieve pain. Doing exercises and physical therapy. These stretch and strengthen the plantar fascia and the muscles in the leg that support the heel and foot. Getting shots of medicine into the foot. These may help relieve symptoms for a time. Having surgery. This may be needed if other treatments fail to relieve symptoms. During surgery, the surgeon may partially cut the plantar fascia to release tension. Possible complications of plantar fasciitis Without proper care and treatment, healing may take longer than normal. Also, symptoms may continueor get worse. Over time, the plantar fascia may be damaged. This can make it hard to walk or even stand without pain. When to call your healthcare provider Call your healthcare provider right away if you have any of these: Fever of 100.4 F (38 C) or higher, or as directed Symptoms that don t get better with treatment, or get worse New symptoms, such as numbness, tingling, or weakness in the foot [id number] [employer]. [address] [place] [address], [place] [address]. All rights reserved. This information is not intended as a substitute for professional medical care. Always follow yourhealthcare professional's instructions. Additional Information VACCINATE! IT SAVES LIVES! Members of the community who have not yet received the COVID-19 vaccine and would like to receive it can visit one of [facility] vaccine clinics. There are many vaccine clinic locations within the [facility]. For locations and available times, please visit [email or web address]. It is important to note that some COVID mobile vaccine clinics are held outdoors and may be canceled in rainy orstormy conditions. To learn more about pediatric vaccinations (ages 5-11), we invite you to visit the [employer] webpage. [email or web address]/[email or web address] [email or web address].htmlTo learn more about the COVID-19 vaccine, we invite you to visit the [facility] website for a list of frequently asked questions. [email or web address] [facility] Patient Portal Access Instructions: Stay connected with your healthcare team and access your personal medical information anytime with the [facility] Patient Portal. If you would like a full copy of your medical records please contact the [facility] Medical Records Department Sunday through Sunday between 8a.m. and 4:30p.m. Please follow the directions below to access the portal: 1.Access the email account you provided upon registration to the [facility].2.Look for an invitation email from [facility].3.Open the email and access the invitation link: Accept Invitation to [facility]4.Fill in the required loyola to create your account. Sign into [email or web address] with your username and password that you created in the above steps to stay up to date. You can then view a summary of results, a summary of your visits, and the ability to download your summaries to your computer or send the information securely to a physician. Remember that your healthcare information is confidential, so carefully consider who you will allow to register on the [facility] Patient Portal for access to your information. You can also access the [facility] Patient Portal on the [employer] lilia. Simply click on "Health Records" under "HealthDaFort [facility]" and then click on the [employer] logo. HOW TO SAFELY DISPOSE OF PRESCRIPTION MEDICATIONS Please use one of the following methods to safely dispose of your unused medications. 1.Use a drug disposal kit: the drug disposal pouch allows you to safely discard your old and unuseddrugs. Ask your nurse to give you one when you are discharged.2.Visit a local take-back location: Many local pharmacies and police departments have programs that collect old and unwanted prescriptiondrugs. Call your local pharmacy or go to http://[employer]/7I5Ga9e to find one close to you.3.Make use of household items: Use cat litter or old coffee grounds to dispose medications if other options arenot available. Mix your drugs with these household products, seal them in an airtight container andthrow it into the garbage. Call [facility]: [phone] to be sure your drugs can be disposed of in this way. Some medicines may require a different approach.4.Never flush your medications down the toilet. IF YOU HAVE BEEN PRESCRIBED AN OPIOIDS FOR PAIN If you have been prescribed an opioid (such as hydrocodone, oxycodone or morphine), it is critical to understand the possible side effects and risks of opioid pain medications. Even when taken as directed, opioids can have several side effects including: Tolerance, meaning you might need to take more of a medication for the same pain relief. Nausea, vomiting and/or constipation. Sleepiness, dizziness, dry mouth, confusion, depression or itching. Physical dependence, meaning you have withdrawal symptoms when a medication is stopped ? this can develop within a few days. KNOW YOUR RESPONSIBILITIES It is important to know exactly how much and how often to take the opioid pain medications you are prescribed. Never take opioids in higher amounts or more often than prescribed. Do not combine opioids with alcohol or other drugs that cause drowsiness, such as benzodiazepines, also known as benzos,including diazepam and alprazolam, muscle relaxants or sleep aids. Never sell or share prescriptionopioids. This is illegal. Store opioids in a secure place and out of reach of others (including children, family, friends and visitors). The last page(s) of this document has been signed and retained as a CHART COPY Signatures Patient Education Materials Understanding Plantar Fasciitis Medication Leaflets My discharge plan and instructions have been reviewed and explained to me and I,CRYSTAL THAKUR understand my current condition and have read and understand these discharge instructions. I have received a written copy of the plan/instructions. If I have questions, I am aware that I should contactmy doctor. Patient/Chief Of Production Signature: Date/Time: Relationship to Patient: Witness Name/Signature: Date/Time: [facility]07-12-2022 Miscellaneous Notes* Telephone Encounter - Grace Edouard RN - 01/17/2022 10:04 AM EDT Pt. called and states on 01-11-2022, she sustained puncture wound to front of her leg 6 inches above her ankle when she walked into "end of 2x 4 with old screw sticking out." She states that the screw may have gone in up to 2 inches. She states she bled so badly, that she had to call the squad. They bandaged her and got it to stop, but she did not go to ER. Now she has swelling and numbness from puncture wound all the way down into foot. She denies fever, redness, or warmth of ankle and foot. Shestates last dTap was in 2017. Pt. instructed to go to ER and verbalizes understanding. [facility] History of Present illness Narrative* Kian Aceves, PT - 01/05/2022 10:04 AM EDT Episode Visit Count: 5 Therapist That Will Oversee The Plan Of Care: Kian Aceves Start of Care Date: 11/01/21 Onset Date: 10/01/21 Plan of Care Certification Date: 01/05/22 Next Certification Due Date: 02/09/22 Patient Identified by Name and Date of : Yes [facility] PHYSICAL THERAPY PROGRESS REPORT PLAN OF CARE UPDATE: Assessment: Crystal Thakur demonstrates improvements in R shoulder strength and ROM. She hasprogressed toward goals. Patient continues to present with impairments in ADL's, range of motion and strength that interfere with lifting (yard work) . Current prognosis is Good due to: current objective clinical presentation . Pt will continue to benefit from strengthening the R shoulder ER's and supraspinatus muscles to further decrease R shoulder pain. She will benefit from continued skilled therapyservices to meet the updated goals for this plan of care as noted below. Goals updated 01/05/2022 Goals for Episode of Care: created on 11/01/21 through 12/27/21 Pt will report 80% improvements of LBP in 8 weeks or less to improve QOL - MET Pt will report overall improvement of R shoulder pain by 80% within 12 weeks for ease of lifting, reaching, and getting dressed. - Progressing will continue Pt will report improved tolerance to standing in one position for better tolerance for cleaning - Progressing, will continue [place] in home exercise program. - MET so far Planned Interventions, Frequency, and Duration: 1x/month, One month Total Number of Visits Planned: 1 Patient to be seen for Therapeutic exercise (13344);Neuromuscular re-education (66500);Manual therapy (13634);Therapeutic activities (79514);Self-longterm management (17615);Patient/Family/CaregiverEducation;Body Mechanics Training PLAN FOR NEXT VISIT: Review exercises and POC update SUBJECTIVE: Patient Reason for Visit: The back and hip pain comes and goes. The R shoulder is stillpainful. Functional Limitations: lifting (yard work) Pain: Pain Additional Pain Information : Location 2 Pain Level 2: (7/10 at its worst) Pain Location 2: Shoulder - Right PROMIS Scales Higher is Better 11/28/2021 12/27/2021 01/03/2022 Phys Func - Score 41 (mild dysfunction) - 43 (mild dysfunction) Phys Func - Percentile 18 % - 24 % Social Roles - Score 45 (within normal limits) - 45 (within normal limits) Social Role - Percentile 31 % - 31 % GH Physical - Score - Incomplete - GH Physical - Percentile - - - GH Mental - Score - Incomplete - GH Mental - Percentile - - - Self-Eff Symptom - Score 41 (Average) - 41 (Average) Self-Eff Symptom - Percentile 18 % - 18 % T-scores: mean of general population = 50. 5 points is clinically meaningfully difference Percentiles provide an indication of how the patient's score ranks in relation to the general population. Higher percentile rankings indicate better function/quality of life. 50th percentile is the average of the general population and indicates half of respondents had a worse score. Lower is Better 10/29/2021 11/28/2021 01/03/2022 Fatigue - Score 64 (moderate) 51 (within normal limits) 53 (within normal limits) Fatigue - Percentile 8 % 46 % 38 % T-scores: mean of general population = 50. 5 points is clinically meaningfully difference Percentiles provide an indication of how the patient's score ranks in relation to the general population. Higher percentile rankings indicate better function/quality of life. 50th percentile is the average of the general population and indicates half of respondents had a worse score. OBJECTIVE MEASURES WITH LEVEL OF FUNCTION: Cervical Spine ROM Cervical Flexion AROM: Normal Cervical Extension AROM: Minimal limitation;Increased pain Cervical Side-Bend Right AROM: Minimal limitation;End range pain Cervical Rotation Left AROM: Increased pain;Minimal limitation UE AROM R Shoulder Flex: 170 Degrees R Shoulder ABduction: 120 Degrees (Pain at end range) UE and Cervical Strength R Shoulder Flexion: 4/5 R Shoulder Internal Rotation: 4+/5 R Shoulder External Rotation: 4+/5 L upper trap min limitation TREATMENT: Therapeutic Exercise: 1: All objective measures taken this session 2: Standing shoulder ER GTB x 3 then BTB x 8 3: Standing shoulder abd GTB 3 x 10 4: Seated L Upper trap stretch 2 x 30 sec Skilled Intervention: Patient was educated in proper exercise technique and purpose for exercises. Provided written instruction for home exercise program to facilitate proper performance and compliance. Correct performance of therapeutic exercises was facilitated with verbal and visual cuing. Billing Therapeutic Exercise Treatment Minutes: 40 Total Treatment Time Minutes (timed/untimed): 40 Kian Aceves PT documented in this [facility]Tr[facility] History of Present illness Narrative* Gabbie Grady MD - 12/29/2021 1:20 PM EDT Chief Complaint Patient presents with: F/U 3 Month HPI Crystal Thakur is a 61 year old female who presents here today for 3 month follow up. No bowel, Gi, or urinary issues. Hx of kidney stones to left kidney. HTN: Checking BP at home with readings 130-120/80-70. Denies any chest pains, dizziness, or SOB. Taking HCTZ 50 mg daily, Norvasc 5 mg daily, Nadolol 80 mg, half pill BID, and Lisinopril 20 mg 2 pills once daily. Pain & Fibro: lower back; has been doing PT. Follows with [facility] taking Ibuprofen 600 mg 1 pill every 6 hours, Robaxin 500 2 pills TID. Has tried CBD gummies and CBD patches or Delta 8 and really doesn't want to go back on those. Taking Prednisone daily for GCA by Rheum Dr. Joe Camp. Sill having issues with with her back and hip. She is getting 9 tablets of Hardesty every 7 to10 days, takes half pill BID along with the muscle relaxant which does help. She has used Gabapentin in the pastwhen she had knee replacement and she didn't tolerate it, feel it made her very erratic and she cannot take Cymbalta. She feels the Nortriptyline is helping. Ankle: right ankle was injured a month ago, still swollen and tender on palpation. Is able to bear weight on the foot. The ankle was hit by a board and the pain and swelling started a few days after injury. She has tried ice. The swelling does not get better over night. DM: Checking BS daily most days several times per day, FBS running 100 or lower, she states she still has over night lows where the BS has been below 70 at times. She has had 8 episodes of low blood sugars. She denies any sx when the sugars are that low. Denies any hypoglycemic episodes. Does have some neuropathy sx in her feet occ, has started the past month with right finger, right middle and ring finger numbness. following with [facility], Dr. Mariscal. Taking Metformin 500 mg 1-2 x per day,usually takes one per day. Her sugars are doing well considering she is on Prednisone. Lipid: Tries to watch diet and carb intake. She is very busy with outdoor yard work and walks a lot. She is taking Tricor 145 mg daily. Did not tolerate Crestor in past. She states that Dr. Hightower suggest going to the [facility] to look into getting some more testing and injectable treatment. She is going to see [facility] since she is already going there for the triglycerides. Past medical history, appointments, medications, allergies reviewed. 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; follows with [facility] Fibromyalgia Giant cell arteritis (HCC) 2020 Heart palpitations nadalol helps Incomplete uterovaginal prolapse Obesity, unspecified Osteoarthrosis, unspecified whether generalized or localized, lower leg bilateral knees > hips Other and unspecified hyperlipidemia 1998 has been on meds in past, had tolerated Lipitor but afraid of statins Phlebitis and thrombophlebitis of superficial vessels of lower extremities 3rd child 1985, right leg Renal stones Varicose veins of other sites 2006 h/o varicose veins onset with first age of 20, had total of 4 pregnancies last was twins.First Vein stripping right leg surgery was 1992 at [facility], Second surgery 1993 to left leg (h/o hernia repair reason for one leg at a time). Here for possible laser surgery to remove lumpy and rope type veins. Previous Surgical History PAST SURGICAL HISTORY Procedure Laterality Date COLSC FLX W/RMVL OF TUMOR POLYP LESION SNARE TQ 01/14/2010 DILATION & CURETTAGE DX&/THER NONOBSTETRIC 2006 Dilation & curettage-HYPERPLASIA, likely will have hysterectomy within next year EGD TRANSORAL BIOPSY SINGLE/MULTIPLE 01/14/2010 EXC CYST/ABERRANT BREAST TISSUE OPEN 1/> LESION 01/03/2010 Left breast, benign FASCIECTOMY PLANTAR FASCIA PARTIAL SPX 1992 FOOT Left 1989' plantar fasciitis release HYSTERECTOMY HX 05/03/2020 TVH, uterosacral vaginal vault suspension, A/P repair IUD INSERTION (HYDRAULIC TESTER DEPT)_*FL 05/14/2008 Mirena, removed JOINT REPLACEMENT HX total right knee LIG/TRNSXJ FLP TUBE ABDL/VAG APPR UNI/BI 1988 Tubal ligation NOVASURE 01/2010 PAST SURGICAL HISTORY OF 1984 EXPLORATORY LAP PAST SURGICAL HISTORY OF 1993 BILAT LEG-VEIN STRIPPING PAST SURGICAL HISTORY OF 10/2007, 12/2007 Bilat leg-vein stripping PAST SURGICAL HISTORY OF Right 01/24/2021 Right bicep repair PAST SURGICAL HISTORY OF Right 2018 TKA REMOVE INTRAUTERINE DEVICE 2011 Expelled 3 weeks after insertion ROTATOR CUFF REPAIR Right bicept reattachment RPR UMBILICAL HRNA 5 YRS/> REDUCIBLE 1993, 1989, 2007 Repaired 3 Times VAGINOSCOPY 09/25/2013 LSIL Family History FAMILY HISTORY Problem Relation Age of Onset Lipids Mother High Cholesterol Hypertension Mother Osteoporosis Mother Arthritis Mother Cataract Mother resolved with surgery other (Other) Mother Meniere's Psychiatry Father depression, committed suicide age 49 Hypertension Son other (hypogonadism) Son other (osteoarthritis) Son other (IBS) Son Cancer Maternal Grandfather leukemia Heart Maternal Grandfather Alzheimer's Disease Paternal Grandmother Osteoporosis Maternal Grandmother Thyroid Maternal Grandmother Thyroid Daughter Strabismus Daughter other (turners) Daughter other (aortic stenosis) Daughter Thyroid Daughter other (celiac disease) Daughter other (Fibromyalgia) Daughter other (MVP) Daughter Thyroid Daughter other (MVP) Daughter Diabetes Paternal Aunt Patient Allergies ALLERGIES Allergen Reactions Cymbalta [Duloxetin* Other: See Comments Intolerance, elevated BP, pulse Keflex [Cephalexin] GI Upset Bloating and tears up stomach Monosodium Glutamat* Other: See Comments Severe headache Oxycodone Other: See Comments Heart palpitations Rabbit Dander Shortness of Breath Splenda [Other] Other: See Comments Severe headaches [place]'s Wort Other: See Comments Elevated BP Atorvastatin Myalgia Muscle Aches Crestor [Rosuvastat* Myalgia Gabapentin Other: See Comments Depression, suicidal thoughts Niacin Intolerance Facial numbness Niacinamide Other: See Comments Facial Numbness Cats Shortness of Breath Aspartame Other: See Comments Severe headache Doxycycline GI Upset Erythromycin GI Upset Glutamic Acid Unknown Patient is not familiar with this product Latex Itching Redness Sucralose Unknown Zithromax [Azithrom* GI Upset GI Current Medications Current Outpatient Medications on File Prior to Visit Medication Sig predniSONE (DELTASONE) 5 mg tablet Take 1 tablet by mouth once daily. nadolol (CORGARD) 80 mg tablet Take 0.5 tablets by mouth twice daily. lisinopril (ZESTRIL, PRINIVIL) 20 mg tablet Take 2 tablets by mouth once daily. methocarbamol (ROBAXIN) 500 mg tablet Take 2 tablets by mouth three times daily. As needed for pain predniSONE (DELTASONE) 5 mg tablet Take 1 tablet by mouth once daily. nortriptyline (PAMELOR) 25 mg capsule Take 1 capsule by mouth daily at bedtime. metFORMIN ER (GLUCOPHAGE XR) 500 mg 24 hr tablet Take 3 tablets by mouth daily with breakfast. coenzyme Q10 (CO Q-10) 100 mg cap capsule Take 2 capsules by mouth once daily. amLODIPine (NORVASC) 5 mg tablet Take 1 tablet by mouth once daily. ondansetron (ZOFRAN) 4 mg tablet Take 1 tablet by mouth every 8 hours as needed. [employer] HUGH 14 DAY SENSOR kit apply NEW SENSOR EVERY 14 DAYS TO UPPER ARM lactobacillus acidophilus 100 mg (1 billion cell) cap(s) Take 1 capsule by mouth once daily. calcium carbonate/vitamin D3 (CALCIUM WITH VITAMIN D ORAL) Take 1 tablet by mouth twice daily. 600 mg calcium with 1000mg vitamin D3 metFORMIN (GLUCOPHAGE) 500 mg tablet Take 1 tablet by mouth three times daily with meals. biotin 1 mg cap Take by mouth. aspirin, enteric coated (ASPIR-LOW) 81 mg EC tablet Take 1 tablet by mouth once daily. ursodiol (ACTIGALL) 300 mg capsule Take 300 mg by mouth twice daily. albuterol HFA (PROVENTIL HFA, VENTOLIN HFA) 90 mcg/actuation inhaler Inhale 2 Puffs as instructed every 4 hours as needed. blood sugar diagnostic (TRUE METRIX GLUCOSE TEST STRIP) test strip Use 4-6 times daily to check blood sugar. Dx:E11.9 insulin:No hydroCHLOROthiazide (HYDRODIURIL, ESIDRIX) 50 mg tablet take 1 tablet by mouth once daily if needed(Patient taking differently: 25 mg. ) estradiol (ESTRACE) 0.01 % (0.1 mg/gram) vaginal cream Use 3 g vaginally once daily. Finger-tip amount of creme applied as directed in hanout (Patient not taking: Reported on 10/06/2021 ) phenazopyridine (PYRIDIUM) 200 mg tablet Take 1 tablet by mouth three times daily as needed. (Patient not taking: Reported on 10/06/2021 ) omeprazole (PRILOSEC) 20 mg capsule Take 1 capsule by mouth daily before breakfast. 1/2 hr before meal. ibuprofen (MOTRIN) 800 mg tablet Take 1 tablet by mouth every 6 hours as needed for pain. lancets (FREESTYLE LANCETS) 28 gauge misc Test blood sugar(s) one times daily. Dx: Type 2 DM - Controlled E11.9 Insulin: No loratadine (CLARITIN) 10 mg ORAL tablet Take 1 tablet by mouth once daily. (Patient taking differently: Take 10 mg by mouth as needed. ) No current facility-administered medications on file prior to visit. Social History Social History Tobacco Use Smoking status: Former Smoker Packs/day: 1.00 Years: 35.00 Pack years: 35.00 Types: Cigarettes Quit date: 03/14/2014 Years since quittin.7 Smokeless tobacco: Never Used Tobacco comment: occasional Vaping Use Vaping Use: Never used Substance Use Topics Alcohol use: Yes Comment: rarely Drug use: No EXAM: BP 124/76 Pulse 78 Resp 16 Wt 88.7 kg (195 lb 8 oz) LMP 04/17/2016 (Exact Date) BMI 30.62kg/m General Appearance: Well appearing, alert, in no acute distress, well-hydrated, well nourished. andOverweight. Lungs: Lungs clear to auscultation. No wheezing, rhonchi, rales.. Heart: RRR without murmur, gallop, or rubs. No ectopy.. Extremities: right ankle swelling and tenderness on palpation of lateral malleolus; FROM. Health Maintenance List PNEUMOCOCCAL(1 - PCV) Never done LUNG CANCER SCREENING Never done SHINGRIX VACCINE(1 of 2) Never done COVID-19 VACCINE(3 - Booster for Pfizer series) due on 12/04/2021 HPV TESTING due on 01/24/2022 INFLUENZA(Season Ended) due on 03/09/2022 HBA1C due on 06/16/2022 DILATED RETINAL EXAM due on 07/13/2022 DIABETIC FOOT EXAM due on 07/22/2022 DEPRESSION SCREENING due on 08/02/2022 MAMMOGRAM due on 08/26/2022 ANNUAL PCP TEAM CHRONIC DISEASE VISIT due on 09/27/2022 BP CONTROLLED (<130/80) due on 09/27/2022 URINE ALBUMIN:CREATININE RATIO due on 12/15/2022 LDL CHOLESTEROL due on 12/15/2022 COLORECTAL CANCER SCREENING due on 08/02/2024 DTAP,TDAP,TD(2 - Td or Tdap) due on 03/14/2027 HEPATITIS C SCREENING Completed HIV SCREENING Completed PAP TESTING Discontinued Data reviewed Appointment on 12/15/2021 Component Date Value Creatinine, Ur Random (U* 12/15/2021 85.6 Albumin, Urine Random 12/15/2021 14.7 Albumin/Creat Ratio 12/15/2021 17 Hemoglobin A1C 12/15/2021 6.5 (A) Estimated Average Glucose 12/15/2021 140 Protein, Total 12/15/2021 6.9 Albumin 12/15/2021 4.2 Calcium, Total 12/15/2021 9.7 Bilirubin, Total 12/15/2021 0.4 Alkaline Phosphatase 12/15/2021 54 AST 12/15/2021 20 ALT 12/15/2021 14 Glucose 12/15/2021 93 BUN 12/15/2021 21 Creatinine 12/15/2021 0.75 Sodium 12/15/2021 137 Potassium 12/15/2021 4.2 Chloride 12/15/2021 99 CO2 12/15/2021 26 Anion Gap 12/15/2021 12 Estimated Glomerular Mundo* 12/15/2021 91 Cholesterol, Total 12/15/2021 371 (A) Triglyceride 12/15/2021 414 (A) HDL Cholesterol 12/15/2021 54 Non HDL Cholesterol 12/15/2021 317 (A) Fasting Time 12/15/2021 10 VLDL Cholesterol 12/15/2021 TC:HDL Ratio 12/15/2021 6.87 (A) LDL Cholesterol 12/15/2021 LDL:HDL Ratio 12/15/2021 WBC 12/15/2021 7.99 RBC 12/15/2021 4.80 Hemoglobin 12/15/2021 13.4 Hematocrit 12/15/2021 42.5 MCV 12/15/2021 88.5 MCH 12/15/2021 27.9 MCHC 12/15/2021 31.5 RDW-CV 12/15/2021 15.2 (A) Platelet Count 12/15/2021 207 MPV 12/15/2021 11.6 Neut% 12/15/2021 44.7 Abs Neut 12/15/2021 3.58 Lymph% 12/15/2021 42.2 Abs Lymph 12/15/[address] [facility]% 12/15/[address] [facility] 12/15/2021 0.75 Eosin% 12/15/2021 2.5 Abs Eosin 12/15/2021 0.20 Baso% 12/15/2021 0.8 Abs Baso 12/15/2021 0.06 Immature Gran % 12/15/2021 0.4 Abs Immature Gran 12/15/2021 0.03 NRBC 12/15/2021 0.0 Absolute nRBC 12/15/2021 <0.01 Diff Type 12/15/2021 Auto Sed Rate, Westergren 12/15/2021 12 CRP 12/15/2021 0.6 LDL Cholesterol, Direct 12/15/2021 229 (A) VLDL Cholesterol 12/15/2021 88 (A) Appointment on 11/04/2021 Component Date Value WBC 11/04/2021 10.50 RBC 11/04/2021 4.63 Hemoglobin 11/04/2021 12.7 Hematocrit 11/04/2021 41.0 MCV 11/04/2021 88.6 MCH 11/04/2021 27.4 MCHC 11/04/2021 31.0 RDW-CV 11/04/2021 15.6 (A) Platelet Count 11/04/2021 181 MPV 11/04/2021 11.3 Neut% 11/04/2021 75.3 Abs Neut 11/04/2021 7.90 (A) Lymph% 11/04/2021 17.2 Abs Lymph 11/04/[address] [facility]% 11/04/[address] [facility] 11/04/2021 0.49 Eosin% 11/04/2021 1.0 Abs Eosin 11/04/2021 0.11 Baso% 11/04/2021 0.5 Abs Baso 11/04/2021 0.05 Immature Gran % 11/04/2021 1.3 Abs Immature Gran 11/04/2021 0.14 (A) NRBC 11/04/2021 0.0 Absolute nRBC 11/04/2021 <0.01 Diff Type 11/04/2021 Auto Sed Rate, [place] 11/04/2021 15 CRP 11/04/2021 0.6 ASSESSMENT/PLAN: 1. Controlled type 2 diabetes mellitus without complication, without long-term current use of insulin (HCC) - ICD9: 250.00, ICD10: E11.9 (primary diagnosis) Controlled. - Continue current medications 2. Acute midline low back pain without sciatica - ICD9: 724.2, ICD10: M54.50 Consult Pain Management-Dr. Bellamy Continue current medications. No longer prescribing Hardesty 3. Fibromyalgia - ICD9: 729.1, ICD10: M79.7 Continue current medications. Is hoping to get off the Prednisone sometime in January No longer prescribing Hardesty Consult Pain Management-Dr. Bellamy 4. Mixed hyperlipidemia - ICD9: 272.2, ICD10: E78.2 - suboptimal control Consult to [facility] per Dr. Hightower - Continue current medication. - Encouraged following a low fat, low cholesterol diet. - Discussed the benefits of regular aerobic exercise and weight loss. - Encouraged following a low carbohydrate, healthy oil intake diet. 5. HYPERTENSION - ICD9: 401.1, ICD10: I10 - good control - Continue current medication(s) - Recommended regular aerobic exercise. - Recommend home blood pressure monitoring, to bring results in on next visit - Goal of BP <130/80 6. Gastroesophageal reflux disease, unspecified whether esophagitis present - ICD9: 530.81, ICD10: K21.9 - Controlled Continue current medications. 7. Acute right ankle pain - ICD9: 719.47, 338.19, ICD10: M25.571 Continue to monitor; symptomatic treatment Follow up in 6 months with labs prior. I agree with the Chief Complaint, ROS, and Past Histories independently gathered by the clinical technical support engineer and the remaining scribed note accurately describes my personal service to the patient. Medical Decision Making: Problems: Moderate: 2+ stable chronic illnesses Data: Unique test result(s) reviewed: 3+ Unique test(s) ordered: 3+ Risk: Moderate: Drug management Medical Decision Making Level: 4 - Moderate Gabbie Grady MD The documentation for this note was completed by Kinjal Mistry Ma acting as scribe for Gabbie Grady MD. December 29, 2021 1:37 PM. Kinjal Mistry Ma documented in this encounterTr[facility] Miscellaneous Notes* Telephone Encounter - Kinjal Mistry Ma - 12/20/2021 3:59 PM EDT The following approved medication requests have been transmitted electronically. Signed Prescriptions Disp Refills HYDROcodone-acetaminophen (NORCO) 5-325 mg per tablet 9 tablet 0 Sig: Take 1 tablet by mouth every 8 hours as needed for pain for up to 3 days. PENELOPE Class: C-II TERESA: No Authorizing Provider: GABBIE GRADY Ma * Telephone Encounter - Gabbie Grady MD - 12/20/2021 3:59 PM EDT OK to refill as ordered Gabbie Grady MD * Telephone Encounter - Kinjal Mistry Ma - 12/20/2021 1:43 PM EDT Last office visit: 09/27/21 F/u scheduled: 12/29/21 Last refilled on: Hardesty #9 on 12/09/21 Kinjal Mistry Ma documented in this encounterTr[facility]06-01-2022 Miscellaneous Notes* Telephone Encounter - Jaskaran Quiroz APRN.YADIRA - 12/07/2021 10:44 AM EDT The following approved medication requests have been transmitted electronically. Pending Prescriptions Disp Refills NADOLOL 80 MG TABLET 90 tablet 3 Sig: Take 0.5 tablets by mouth twice daily. TERESA: No LISINOPRIL 20 MG TABLET 180 tablet 3 Sig: Take 2 tablets by mouth once daily. TERESA: No METHOCARBAMOL 500 MG TABLET 180 tablet 2 Sig: Take 2 tablets by mouth three times daily. As needed for pain TERESA: No Jaskaran Quiroz APRN.YADIRA * Telephone Encounter - Fozia Mathew LPN - 12/07/2021 10:41 AM EDT Patient has been identified by name and date of : Yes Patient phones for refill(s): Pending Prescriptions Disp Refills NADOLOL 80 MG TABLET 90 tablet 3 Sig: Take 0.5 tablets by mouth twice daily. TERESA: No LISINOPRIL 20 MG TABLET 180 tablet 3 Sig: Take 2 tablets by mouth once daily. TERESA: No METHOCARBAMOL 500 MG TABLET 180 tablet 2 Sig: Take 2 tablets by mouth three times daily. As needed for pain TERESA: No Date of last office visit in primary care: 09/27/21 Please advise. Thank you. Fozia Mathew LPN documented in this encounterTr[facility]05-27-2022 History of Present illness Narrative* Kian Aceves, PT - 12/02/2021 9:51 AM EDT Episode Visit Count: 4 Therapist That Will Oversee The Plan Of Care: Kian Aceves Start of Care Date: 11/01/21 Onset Date: 10/01/21 Plan of Care Certification Date: 12/02/21 Next Certification Due Date: 01/06/22 Patient Identified by Name and Date of : Yes REHABILITATION AND SPORTS THERAPY PHYSICAL THERAPY PROGRESS REPORT PLAN OF CARE UPDATE: Assessment: Crystal Thakur demonstrates improvements in Back and hip pain, independence with the HEP. She hasprogressed toward goals. Patient continues to present with impairments in ADL's, range of motion and strength that interfere with . Current prognosis is Good due to: current objective clinical presentation . Pt requires more supervised therapy for advancement of R RTC strengthening to decrease pain and tolerated increased loads. She will benefit from continued skilled therapy services to meet the updated goals for this plan of care as noted below. Goals updated 12/02/2021 Goals for Episode of Care: created on 11/01/21 through 12/27/21 Pt will report 80% improvements of LBP in 8 weeks or less to improve QOL - MET Pt will report overall improvement of R shoulder pain by 80% within 12 weeks for ease of lifting, reaching, and getting dressed. - Not met, will continue Pt will report improved tolerance to standing in one position for better tolerance for cleaning - Progressing, will continue [place] in home exercise program. - MET so far Planned Interventions, Frequency, and Duration: 1x every other week, 4 weeks Total Number of Visits Planned: 2 Patient to be seen for Therapeutic exercise ([id number]);Neuromuscular re-education (25334);Manual therapy (80838);Therapeutic activities (64367);Self-longterm management (61447);Patient/Family/CaregiverEducation;Body Mechanics Training PLAN FOR NEXT VISIT: Progressing R RTC strengthening as tolerated SUBJECTIVE: Patient Reason for Visit: The pain near the shoulder blade is better. Pt is really active and her shoulder is still painful. The back and hip is a little better. Pt reports the back and hip pain is 80% better. Pain: Pain Additional Pain Information : Location 2 Pain Level 2: 2 (when not moving) Pain Location 2: Shoulder - Right PROMIS Scales Higher is Better 09/26/2021 10/29/2021 11/28/2021 Phys Func - Score - 35 (moderate dysfunction) 41 (mild dysfunction) Phys Func - Percentile - 7 % 18 % Social Roles - Score - 29 (severe dysfunction) 45 (within normal limits) Social Role - Percentile - 2 % 31 % GH Physical - Score 34.9 (Poor) - - GH Physical - Percentile 7 % - - GH Mental - Score 41.1 (Good) - - GH Mental - Percentile 19 % - - Self-Eff Symptom - Score - 28 (Very Low) 41 (Average) Self-Eff Symptom - Percentile - 1 % 18 % T-scores: mean of general population = 50. 5 points is clinically meaningfully difference Percentiles provide an indication of how the patient's score ranks in relation to the general population. Higher percentile rankings indicate better function/quality of life. 50th percentile is the average of the general population and indicates half of respondents had a worse score. Lower is Better 08/02/2021 10/29/2021 11/28/2021 Fatigue - Score 57 (mild) 64 (moderate) 51 (within normal limits) Fatigue - Percentile 24 % 8 % 46 % T-scores: mean of general population = 50. 5 points is clinically meaningfully difference Percentiles provide an indication of how the patient's score ranks in relation to the general population. Higher percentile rankings indicate better function/quality of life. 50th percentile is the average of the general population and indicates half of respondents had a worse score. OBJECTIVE MEASURES WITH LEVEL OF FUNCTION: UE AROM R Shoulder Flex: 170 Degrees R Shoulder ABduction: 45 Degrees UE and Cervical Strength R Shoulder Flexion: 4-/5 R Shoulder Internal Rotation: 4+/5 R Shoulder External Rotation: 4/5 (Painful) TREATMENT: Therapeutic Exercise: 1: All objective measures taken this session 2: Standing shoulder abd OTB 2 x 10 reps (stopping at point of pain) Skilled Intervention: Patient was educated in proper exercise technique and purpose for exercises. Skilled judgment was provided in selection of appropriate interventions. Correct performance of therapeutic exercises was facilitated with verbal and visual cuing. Billing Therapeutic Exercise Treatment Minutes: 26 Total Treatment Time Minutes (timed/untimed): 26 Kian Aceves PT documented in this encounterTr[facility]05-26-2022 Miscellaneous Notes* Telephone Encounter - Gabbie Grady MD - 12/01/2021 1:32 PM EDT OK to refill as ordered Gabbie Grady MD * Telephone Encounter - Mari Pederson LPN - 12/01/2021 7:27 AM EDT Patient phones requesting refills as follows: Pending Prescriptions Disp Refills HYDROCODONE 5 MG-ACETAMINOPHEN 325 MG TABLET 9 tablet 0 Sig: Take 1 tablet by mouth every 8 hours as needed for pain for up to 3 days. PENELOPE Class: C-II TERESA: No FARAZ-09/27/21 Labs-11/04/21 NOV-12/29/21 med filled 11/23/21 ends 11/23/21 Please review and advise. Mari Pederson LPN documented in this encounterTr[facility]05-26-2022 Miscellaneous Notes* Telephone Encounter - Faustina Orosco - 12/01/2021 8:22 AM EDT Duplicate request from patient. Original request approved on 11/30/2021 for prednisone 5mg documented in this encounterTr[facility]05-25-2022 Miscellaneous Notes* Telephone Encounter - Jess Camp MD - 11/30/2021 7:33 PM EDT The following approved medication requests have been transmitted electronically. Signed Prescriptions Disp Refills predniSONE (DELTASONE) 5 mg tablet 30 tablet 5 Sig: Take 1 tablet by mouth once daily. Authorizing Provider: JESS VÁSQUEZ MD * Telephone Encounter - Faustina Orosco - 11/28/2021 10:50 AM EDT Patient is electronically requesting refill: Pending Prescriptions Disp Refills PREDNISONE 5 MG TABLET 30 tablet 5 Sig: Take 1 tablet by mouth once daily. Please review and approve Faustina Orosco documented in this encounterTrinity [facility]05-17-2022 History of Present illness Narrative* Kian Aceves PT - 11/22/2021 2:29 PM EDT Episode Visit Count: 3 Therapist That Will Oversee The Plan Of Care: Kian Aceves Start of Care Date: 11/01/21 Onset Date: 10/01/21 Plan of Care Certification Date: 11/01/21 Next Certification Due Date: 12/06/21 Patient Identified by Name and Date of : Yes REHABILITATION AND SPORTS THERAPY PHYSICAL THERAPY TREATMENT NOTE ASSESSMENT: Crystal Thakur tolerated the session with some mild increased R upper trap pain following assessment which returned to normal levels after rest. She demonstrated understanding of newly added therapeutic exercises added this session. The patient will continue to benefit from ongoing skilled physical therapy for reassessment by supervising therapist. PLAN FOR NEXT VISIT: assess reaction to newly added HEP. further assess neck segmental mobility in prone. RTC strengthening. SUBJECTIVE: Patient Reason for Visit: Pt states that the R arm is painful and weed-eating can causepain in the R shoulder. The pain is sharp and shooting. Functional Limitations: reaching behind back;sleeping (Sleeping affects R upper trap pain) Pain: Pain Additional Pain Information : Location 2 Pain Level 2: 4 Pain Location 2: Shoulder - Right Description 2: Sharp;Shooting OBJECTIVE MEASURES WITH LEVEL OF FUNCTION: Cervical Spine ROM Cervical ROM : Limitation AROM Cervical Flexion AROM: Normal Cervical Extension AROM: Minimal limitation;Increased pain Cervical Side-Bend Right AROM: Normal;Increased pain Cervical Side-Bend Left AROM: Normal Cervical Rotation Right AROM: Normal Cervical Rotation Left AROM: Normal UE AROM R Shoulder Flex: 170 Degrees (Not painful) R Shoulder Internal Rotation (Functional): Lumbar spine; causes some anterior shoulder discomfort UE and Cervical Strength Strength Tested: Shoulder All R Shoulder Flexion: 4/5 R Shoulder Internal Rotation: 4/5 (Painful) R Shoulder External Rotation: 4+/5 (Painful) TREATMENT: Therapeutic Exercise: 1: *Standing shoulder ER GTB 2 x 10 reps 2: *Looking toward L shirt pocket x 5 reps holding 10 sec each 3: *Shoulder IR GTB 2 x 10 reps Skilled Intervention: Patient was educated in proper exercise technique and purpose for exercises. Provided written instruction for home exercise program to facilitate proper performance and compliance. Billing Therapeutic Exercise Treatment Minutes: 45 Total Treatment Time Minutes (timed/untimed): 45 Kian Aceves PT documented in this encounterTr[facility]05-11-2022 Miscellaneous Notes* Telephone Encounter - Kinjal Mistry Ma - 11/16/2021 3:34 PM EDT The following approved medication requests have been transmitted electronically. Signed Prescriptions Disp Refills HYDROcodone-acetaminophen (NORCO) 5-325 mg per tablet 9 tablet 0 Sig: Take 1 tablet by mouth every 8 hours as needed for pain for up to 3 days. PENELOPE Class: C-II TERESA: No Authorizing Provider: GABBIE GRADY Ma * Telephone Encounter - Gabbie Grady MD - 11/16/2021 3:08 PM EDT OK to refill as ordered Gabbie Grady MD * Telephone Encounter - Mari Pederson LPN - 11/16/2021 2:08 PM EDT Patient phones requesting refills as follows: Pending Prescriptions Disp Refills HYDROCODONE 5 MG-ACETAMINOPHEN 325 MG TABLET 9 tablet 0 Sig: Take 1 tablet by mouth every 8 hours as needed for pain for up to 3 days. PENELOPE Class: C-II TERESA: No FARAZ-09/27/21 Labs-11/04/21 NOV-12/29/21 med filled 11/09/21 ends 11/12/21 Please review and advise. Mari Pederson LPN documented in this encounterTr[facility]22 Miscellaneous Notes* Telephone Encounter - Kinjal Mistry Ma - 11/16/2021 2:09 PM EDT Last office visit: 09/27/21 F/u scheduled: 12/29/21 Last refilled on: [facility]esty #9 on 11/09/21 Kinjal Mistry Ma documented in this encounterTrinity [facility]05-10-2022 History of Present illness Narrative* Cheng Mariscal - 11/15/2021 11:45 AM EDT Last saw Dr. Grady: 05/11/2021 Subjective: Patient presents to clinic c/o painful toenails. They state that the nails are especially painful with shoe gear and pressure. Patient states that nails 1-5 b/l are painful. Patient admits to being diabetic. She has callus to left 5th metatarsal but not as painful as it was in the past.No other pedal complaints at this time. Patient states no change in medications or medical history since last visit. Objective: Patient presents to clinic ambulating in [facility] Vasc: DP and PT pulses are palpable bilateral. CFT is less than 5 seconds bilateral. Skin temperature is warm to cool proximal to distal bilateral. There is no edema or varicosities noted. Neuro: Protective sensation is intact to the foot and toes when tested with the 5.07 SWM bilateral.Vibratory sensation is decreased at the hallux IPJ bilateral. The hallux is downgoing bilateral. Derm: Nails 1-5 b/l are painful, discolored-yellow, thick, crumbly, dystrophic and with subungal debris. Skin is of normal turgor, texture and hair growth is present bilateral. There are callus to left 5th metatarsal. no ulcerations, scars, verruca or other lesions noted. Ortho: Muscle strength is 5/5 for all pedal groups tested. Ankle joint DF is decreased with the knee extended with no pain or crepitus noted. 1st MPJ ROM is decreased bilateral. 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 Nails 1-5 bilateral were debrided in length and thickness. Callus reduced with dremmel. In order to perform a complete physical exam, limited shaving of callus area was performed. This incidental service is integral to the evaluation and management visit in order to appropriately manage and treat the patient (for their complaint or for this visit). Recommend patient get diabetic shoes as ordered Patient was instructed on the continued importance of diabetic foot care along with proper diet andkeeping their blood sugar under control to prevent complications. Patient is to RTC in 3-4 months. Cheng Mariscal DPM documented in this encounterTrinity [facility]05-10-2022 Instructions* Patient Instructions* Cheng Mariscal - 11/15/2021 11:45 AM EDT Diabetes Foot Care Instructions When you have diabetes, proper foot care is very important. Poor foot care may lead to amputation of a foot or leg. As a person with diabetes, you are more vulnerable to foot problems, because diabetes can damage your nerves and reduce blood flow to your feet. Here are some diabetes foot care tips to follow: Wash and Dry Your Feet Daily Use mild soaps Use warm water Pat your skin dry; do not rub. Thoroughly dry your feet. After washing, use lotion on your feet to prevent cracking. Do not put lotion between your toes. Examine Your Feet Each Day Check the tops and bottoms of your feet. Have someone else look at your feet if you cannot see them. Check for dry, cracked skin. Look for blisters, cuts, scratches, or other sores. Check for redness, increased warmth, or tenderness when touching any area of your feet. Check for ingrown toenails, corns, and calluses. If you get a blister or sore from your shoes, do not "pop" it. Apply a bandage and wear a differentpair of shoes. Take Care of Your Toenails Cut toenails after bathing, when they are soft. Cut toenails straight across and smooth with a nail file. Avoid cutting into the corners of toes. Do not cut cuticles. If you have neuropathy (or decreased sensation in your feet) a marine railway operator should always cut your toenails. Be Careful When Exercising Walk and exercise in comfortable shoes. Do not exercise when you have open sores on your feet. Protect Your Feet With Shoes and Socks Never go barefoot. Always protect your feet by wearing shoes or hard-soled slippers or footwear. Avoid shoes with high heels and pointed toes. Avoid shoes that expose your toes or heels (such as open-toed shoes or sandals). These types of shoes increase your risk for injury and potential infections. Try on new footwear with the type of socks you usually wear. Do not wear new shoes for more than an hour at a time. Change your socks daily. Look and feel inside your shoes before putting them on to make sure there are no foreign objects orrough areas. Avoid tight socks. Wear natural-fiber socks (cotton, wool, or a cotton-wool blend). Wear special shoes if your health care provider recommends them. Wear shoes/boots that will protect your feet from various weather conditions (cold, moisture, etc.). Make sure your shoes fit properly. If you have neuropathy (nerve damage), you may not notice that your shoes are too tight. Perform the "footwear test" described below. Footwear Test Use this simple test to see if your shoes fit correctly: Stand on a piece of paper. (Make sure you are standing and not sitting, because your foot changes shape when you stand.) Trace the outline of your foot. Trace the outline of your shoe. Compare the tracings: Is the shoe too narrow? Is your foot crammed into the shoe? The shoe should be at least 1/2 inch longer than your longest toe and as wide as your foot. Proper Shoe Choices The following types of shoes are best for people with diabetes Closed toes and heels Leather uppers without a seam inside At least 1/2 inch extra space at the end of your longest toe Inside of shoe should be soft with no rough areas Outer sole should be made of stiff material Shoes should be at least as wide as your feet Tips for Foot Care in Diabetes Don't wait to treat a minor foot problem if you have diabetes. Follow your health care provider's guidelines and first aid guidelines. Report foot injuries and infections to your health care provider immediately. Check water temperature with your elbow, not your foot. Do not use a heating pad on your feet. Do not cross your legs. Do not self-treat your corns, calluses, or other foot problems. Go to your health care provider or marine railway operator to treat these conditions. documented in this encounterTrinity [facility]05-10-2022 History of Present illness Narrative* Kian Aceves, PT - 11/15/2021 11:39 AM EDT Episode Visit Count: 2 Therapist That Will Oversee The Plan Of Care: Kian Aceves Start of Care Date: 11/01/21 Onset Date: 10/01/21 Plan of Care Certification Date: 11/01/21 Next Certification Due Date: 12/06/21 Patient Identified by Name and Date of : Yes REHABILITATION AND SPORTS THERAPY PHYSICAL THERAPY TREATMENT NOTE ASSESSMENT: Crystal Thakur tolerated the session with expected muscle soreness. She demonstrated difficulty with right shoulder pain which will be evaluated in futue visit. She has decrease back pain since seen and left hip pain with some discomfort. The patient will continue to benefit from ongoing skilled physical therapy to progress toward set goals. PLAN FOR NEXT VISIT: Evaluation of right shoulder by Kian Aceves PT SUBJECTIVE: Patient Reason for Visit: Patient reports low back is better and she has some left hip pain. She reports right shoulder has the most pain. Pain: Pain Pain Level: 2 Pain Location: Hip - Left Description: Dull Additional Pain Information : Location 2 Pain Level 2: 4 (01/15 prior to Ibuprofen) Pain Location 2: Shoulder - Right Description 2: Aching;Dull (burning and shooting right UT) Post Treatment Pain Post Treatment Pain Level: No Change Post Treatment Symptoms: left hip feels slightly better OBJECTIVE MEASURES WITH LEVEL OF FUNCTION: No increase in pain back or left hip with seated and standing exercises today. TREATMENT: Therapeutic Exercise: 1: *Seated TA with marching 2x10 2: *Seated TA with LAQ right and left 2x10 3: Sit to stand from mat table 19" high 1x5 (weakness in B knees) 4: *Seated forward flexion stretch 3x30 seconds. 5: *Seated piriformis stretch 3x30 seconds B 6: *Standing hip abduction and extension 1x10 each. Skilled Intervention: Patient was educated in proper exercise technique and purpose for exercises. Reviewed and educated patient on additions/changes for home exercise program as above (*). Skilled judgment was provided in selection of appropriate interventions. Provided written instruction for home exercise program to facilitate proper performance and compliance. Correct performance of therapeutic exercises was facilitated with verbal and visual cuing. Billing Therapeutic Exercise Treatment Minutes: 45 Total Treatment Time Minutes (timed/untimed): 45 BOBY Estevez PT documented in this encounterTrinity [facility]05-04-2022 Miscellaneous Notes* Telephone Encounter - Kinjal Mistry Ma - 11/09/2021 7:11 PM EDT The following approved medication requests have been transmitted electronically. Signed Prescriptions Disp Refills HYDROcodone-acetaminophen (NORCO) 5-325 mg per tablet 9 tablet 0 Sig: Take 1 tablet by mouth every 8 hours as needed for pain for up to 3 days. PENELOPE Class: C-II TERESA: No Authorizing Provider: GABBIE GRADY Ma * Telephone Encounter - Gabbie Grady MD - 11/09/2021 6:59 PM EDT OK to refill as ordered Gabbie Grady MD * Telephone Encounter - Mari Pederson LPN - 11/09/2021 10:26 AM EDT Patient phones requesting refills as follows: Pending Prescriptions Disp Refills HYDROCODONE 5 MG-ACETAMINOPHEN 325 MG TABLET 9 tablet 0 Sig: Take 1 tablet by mouth every 8 hours as needed for pain for up to 3 days. PENELOPE Class: C-II TERESA: No FARAZ-09/27/21 Labs-11/04/21 NOV-12/29/21 med filled 10/31/21 ends 11/03/21 Please review and advise. Mari Pederson LPN documented in this encounterTrinity [facility]04-25-2022 Miscellaneous Notes* Telephone Encounter - Gabbie Grady MD - 10/31/2021 10:14 AM EDT [facility] refilled today Gabbie Grady MD * Telephone Encounter - Cande Zacarias Ma - 10/28/2021 3:41 PM EDT See pt message since PCP is out of the office. Cande Zacarias Ma * Telephone Encounter - Lupe Olivera Ma - 10/21/2021 4:20 PM EDT Please see pt message Lupe Olivera Ma * Telephone Encounter - Cande Zacarias Ma - 10/19/2021 1:15 PM EDT Pt notified of PCP's response below via [email or web address]. If questions pt to notify office. Cande Zacarias Ma * Telephone Encounter - Gabbie Grady MD - 10/19/2021 1:04 PM EDT OK for lumbar spine Xray as ordered OK for a few tramadol for pain She is already prescribed methocarbamol for muscle spasms Gabbie Grady MD documented in this encounterTrinity [facility]04-25-2022 Miscellaneous Notes* Telephone Encounter - Kinjal Mistry Ma - 10/31/2021 10:01 AM EDT The following approved medication requests have been transmitted electronically. Signed Prescriptions Disp Refills metFORMIN ER (GLUCOPHAGE XR) 500 mg 24 hr tablet 270 tablet 3 Sig: Take 3 tablets by mouth daily with breakfast. TERESA: No Authorizing Provider: GABBIE GRADY HYDROcodone-acetaminophen (NORCO) 5-325 mg per tablet 9 tablet 0 Sig: Take 1 tablet by mouth every 8 hours as needed for pain for up to 3 days. PENELOPE Class: C-II TERESA: No Authorizing Provider: GABBIE GRADY Ma * Telephone Encounter - Gabbie Grady MD - 10/31/2021 8:10 AM EDT OK to refill as ordered Gabbie Grady MD * Telephone Encounter - Lupe Olivera Ma - 10/28/2021 4:47 PM EDT Pending Prescriptions Disp Refills METFORMIN ER 500 MG TABLET,EXTENDED RELEASE 24 HR 270 tablet 3 Sig: Take 3 tablets by mouth daily with breakfast. TERESA: No HYDROCODONE 5 MG-ACETAMINOPHEN 325 MG TABLET 9 tablet 0 Sig: Take 1 tablet by mouth every 8 hours as needed for pain for up to 3 days. PENELOPE Class: C-II TERESA: No FARAZ 09/27/21 NOV 12/29/21 Last refilled 07/26/21 #9 tablets 0 refills Lupe Olivera Ma documented in this encounterTrinity [facility]04-15-2022 History of Present illness Narrative* RT Carine(R) - 10/21/2021 11:20 AM EDT Radiology Service Progress Note PATIENT NAME: Crystal Thakur DATE OF SERVICE: October 21, 2021 TIME: 11:20 AM PATIENT IDENTITY VERIFICATION COMPLETED USING TWO (2) IDENTIFIERS: Name and Date of confirmedby patient verbally. FALL SCREENING: Has the patient had 2 falls in the last year or 1 fall with injury or currently using an Ambulatory Assistive Device (Walker, Cane, Wheelchair, Crutches, etc.)? No PATIENT GENDER DATA: Female. status: : No status: NO. PATIENT RELEVANT IMPLANT DATA REVIEWED: Yes RADIOLOGY DEPARTMENT: General X-ray: Exam(s) Completed: Spine X-Ray(s): Lumbar AP / LAT / L5-S1 PERIPHERAL IV DATA: Not applicable SIGNED BY: RT Carine(R) October 21, 2021 11:20 AM documented in this encounterTrinity Health [facility]03-31-2022 History of Present illness Narrative* Yoandy Mtz MD - 10/06/2021 11:43 AM EDT Tmax: 20, 20; Pachy: 619, 615 Lasers and Surgeries: OD: none OS: none Ocular Medication Intol and Non-efficacy: none Referred by self Diagnosis of GCA and on high dose oral prednisone (symptoms only, no biopsy) Did have very elevated CRP/ESR Denies family history glaucoma + steroid use - neg trauma History FMD - renal arteries, carotid bilaterally Now on pred 25mg oral on 2.5 mg/week taper -HVF 09/2021 OD full, NSD OS full, NSD -OCT 09/2021 OD full, GCA full OS full, GCA - M31.6 Giant cell arteritis (HCC) - diagnosis symptoms only with elevated CRP/ESR - symptoms improving - following with rheumatology - optic nerve appearance normal - monitor, return precautions reviewed E11.9 Type 2 diabetes mellitus without retinopathy (HCC) (primary encounter diagnosis) - Diagnosed 2014, oral meds -no evidence of diabetic or hypertensive retinopathy on examination today - Hemoglobin A1C (%) Date Value 09/26/2021 7.0 03/28/2021 6.9 -discussed potential for vision loss with uncontrolled diabetes and the importance of following blood sugars, blood pressure, and cholesterol closely. 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, steroid induced - IOP target <21 - reviewed current medications, if any - discussed pathology behind glaucoma and natural history/progression of disease if untreated - reviewed that vision loss from glaucoma is irreversible and that our primary goal is to preserve vision - importance of compliance with medications and follow up visits reviewed - discussed possible need for new/additional medication, laser treatment, or surgery IOP today acceptable Testing overall normal Monitor off meds - Return 1 year, VA, IOP, VF yes, OCT RNFL yes, dilate yes (If lost to follow up or returning at > 1 year, perform full workup including refraction) I have confirmed and edited as necessary the relevant ophthalmic history, ROS, and the neuro exam findings as obtained by others. I have seen and examined Crystal Vnetura Blaze. I have discussed the case and the management of this patient's care with the Resident/Fellow, if applicable. I also have reviewed and agree with the assessment and plan as stated above and agree withall of its relevant components. Yoandy Mtz MD documented in this encounterTrinity [facility]03-28-2022 Miscellaneous Notes* Telephone Encounter - Jess Camp MD - 10/03/2021 6:25 PM EDT phone call to patient I left message on her voicemail Electronically Signed by Jess Fierro MD, [facility] documented in this encounterTrinity Health [facility]03-07-2022 Miscellaneous Notes* Telephone Encounter - Marah Jackson - 09/12/2021 3:07 PM EST Patient was informed. Marah Jackson * Telephone Encounter - Fito Trejo MD - 09/12/2021 1:51 PM EST She will get stress dosing of steroids at the time of surgery intravenously. I have no control overthe visitation policy. But I do abide by it. Unfortunately, due to Covid these are the changes we have had to implement. Yes, we will usually have to take off the sugar monitor. We can replace it right after surgery though. * Telephone Encounter - Marah Jackson - 09/09/2021 11:47 AM EST Images from the original note were not included. Crystal Thakur "Ivy" Fito Trejo MD Yesterday (9:57 AM) 1. As we discussed during my office visit, I am on Prednisone for a autoimmune disease. I cannot go without the Prednisone even for a day. I usually take it by 7-7:30 am. *My question is the day of surgery will that be given to me by IV and prior to procedure? I am on 25 mg a day, but by my surgery day, hopefully will be at 20- 22.5 mg/ day. Please note: the Prednisone does cause my blood sugar to increase significantly even when I am NPO.I am taking 1138-1390 mg of Metformin/daily, to try to keep it under 200. Also, I wear a continuous glucose monitor. * I am guessing that I will need to remove that prior to the radiology procedure/surgery? 2. I noticed that the visitor guidelines say 2 visitors per day. *Would it be possible to have 3 family members present? My son, will be bringing me and will have to leave for work probably before I get out of surgery. My daughter and my Mom also want to be there, they will only be there from like right before surgery till I get out of surgery. Thank you, Ivy documented in this encounterTrinity [facility]02-24-2022 Miscellaneous Notes* Telephone Encounter - Stacie Holliday RN - 09/01/2021 9:03 AM EST Patient complaining of left flank and urethral pain, cloudy and foamy urine; frequency and urgency.Asking for UA, culture and antibiotics. Orders pend for labs, message sent to Marah. Does he need seen? Stacie Holliday RN documented in this encounterTrinity Health [facility] Center12-03-2020 History of Present illness Narrative* Idalia Doe (Rt), [facility] - 06/10/2020 11:00 AM EST Radiology Service Progress Note PATIENT NAME: Crystal Thakur DATE OF SERVICE: June 10, 2020 TIME: 11:11 AM PATIENT IDENTITY VERIFICATION COMPLETED USING TWO (2) IDENTIFIERS: Name and Date of confirmedby patient verbally. FALL SCREENING: Has the patient had 2 falls in the last year or 1 fall with injury or currently using an Ambulatory Assistive Device (Walker, Cane, Wheelchair, Crutches, etc.)? No PATIENT GENDER DATA: Female. status: : No status: NO. PATIENT RELEVANT IMPLANT DATA REVIEWED: Not Applicable RADIOLOGY DEPARTMENT: General X-ray: Exam(s) Completed: Spine X-Ray(s): Lumbar AP / LAT / L5-S1 PERIPHERAL IV DATA: Not applicable SIGNED BY: RT Elvira June 10, 2020 11:11 AM documented in this encounterTrinity Health [facility]01-23-2018 History of Past illness Narrative* Problem Noted Date Resolved Date Primary osteoarthritis of right knee 07/31/2017 08/23/2017 Overview: Added automatically from request for surgery [id number] Counseling and coordination of care 12/02/2014 02/26/2015 Thickened endometrium 09/12/2011 09/11/2013 Abnormal uterine bleeding 09/12/20112013 Pain in joint, lower leg 08/10/2011 018 Arthrofibrosis of total knee arthroplasty, subsequent encounter 07/14/2011 11/19/2017 Esophagitis, unspecified 01/14/2010 018 Menorrhagia 12/27/2009 08/18/2011 Onychia and paronychia of toe 06/22/2008 Ingrowing nail 05/14/2008 08/06/2017 Other plastic surgery for unacceptable cosmetic appearance 08/21/2007 08/06/2017 Varicose veins of lower extremities with other c omplications 02/20/2007 08/06/2017 Anemia, unspecified 04/14/2016 Overview: due to heavy menstrual cycles SMOKER 09/11/2014 documented as of this encounter (statuses as of 10/03/2021) [facility] History of Past illness Narrative* Problem Noted Date Resolved Date Primary osteoarthritis of right knee 07/31/2017 08/23/2017 Overview: Added automatically from request for surgery [id number] Counseling and coordination of care 12/02/2014 02/26/2015 Thickened endometrium 09/12/2011 09/11/2013 Abnormal uterine bleeding 09/12/20112013 Pain in joint, lower leg 08/10/2011 018 Arthrofibrosis of total knee arthroplasty, subsequent encounter 07/14/2011 11/19/2017 Esophagitis, unspecified 01/14/2010 018 Menorrhagia 12/27/2009 08/18/2011 Onychia and paronychia of toe 06/22/2008 Ingrowing nail 05/14/2008 08/06/2017 Other plastic surgery for unacceptable cosmetic appearance 08/21/2007 08/06/2017 Varicose veins of lower extremities with other c omplications 02/20/2007 08/06/2017 Anemia, unspecified 04/14/2016 Overview: due to heavy menstrual cycles SMOKER 09/11/2014 documented as of this encounter (statuses as of 10/06/2021) [facility] History of Past illness Narrative* Problem Noted Date Resolved Date Primary osteoarthritis of right knee 07/31/2017 08/23/2017 Overview: Added automatically from request for surgery [id number] Counseling and coordination of care 12/02/2014 02/26/2015 Thickened endometrium 09/12/2011 09/11/2013 Abnormal uterine bleeding 09/12/20112013 Pain in joint, lower leg 08/10/2011 018 Arthrofibrosis of total knee arthroplasty, subsequent encounter 07/14/2011 11/19/2017 Esophagitis, unspecified 01/14/2010 018 Menorrhagia 12/27/2009 08/18/2011 Onychia and paronychia of toe 06/22/2008 Ingrowing nail 05/14/2008 08/06/2017 Other plastic surgery for unacceptable cosmetic appearance 08/21/2007 08/06/2017 Varicose veins of lower extremities with other c omplications 02/20/2007 08/06/2017 Anemia, unspecified 04/14/2016 Overview: due to heavy menstrual cycles SMOKER 09/11/2014 documented as of this encounter (statuses as of 10/10/2021) [facility] of Past illness Narrative* Problem Noted Date Resolved Date Primary osteoarthritis of right knee 07/31/2017 08/23/2017 Overview: Added automatically from request for surgery [id number] Counseling and coordination of care 12/02/2014 02/26/2015 Thickened endometrium 09/12/2011 09/11/2013 Abnormal uterine bleeding 09/12/20112013 Pain in joint, lower leg 08/10/2011 018 Arthrofibrosis of total knee arthroplasty, subsequent encounter 07/14/2011 11/19/2017 Esophagitis, unspecified 01/14/2010 018 Menorrhagia 12/27/2009 08/18/2011 Onychia and paronychia of toe 06/22/2008 Ingrowing nail 05/14/2008 08/06/2017 Other plastic surgery for unacceptable cosmetic appearance 08/21/2007 08/06/2017 Varicose veins of lower extremities with other c omplications 02/20/2007 08/06/2017 Anemia, unspecified 04/14/2016 Overview: due to heavy menstrual cycles SMOKER 09/11/2014 documented as of this encounter (statuses as of 10/22/2021) [facility] of Past illness Narrative* Problem Noted Date Resolved Date Primary osteoarthritis of right knee 07/31/2017 08/23/2017 Overview: Added automatically from request for surgery [id number] Counseling and coordination of care 12/02/2014 02/26/2015 Thickened endometrium 09/12/2011 09/11/2013 Abnormal uterine bleeding 09/12/20112013 Pain in joint, lower leg 08/10/2011 018 Arthrofibrosis of total knee arthroplasty, subsequent encounter 07/14/2011 11/19/2017 Esophagitis, unspecified 01/14/2010 018 Menorrhagia 12/27/2009 08/18/2011 Onychia and paronychia of toe 06/22/2008 Ingrowing nail 05/14/2008 08/06/2017 Other plastic surgery for unacceptable cosmetic appearance 08/21/2007 08/06/2017 Varicose veins of lower extremities with other c omplications 02/20/2007 08/06/2017 Anemia, unspecified 04/14/2016 Overview: due to heavy menstrual cycles SMOKER 09/11/2014 documented as of this encounter (statuses as of 10/31/2021) [facility] [facility] of Past illness Narrative* Problem Noted Date Resolved Date Primary osteoarthritis of right knee 07/31/2017 08/23/2017 Overview: Added automatically from request for surgery [id number] Counseling and coordination of care 12/02/2014 02/26/2015 Thickened endometrium 09/12/2011 09/11/2013 Abnormal uterine bleeding 09/12/20112013 Pain in joint, lower leg 08/10/2011 018 Arthrofibrosis of total knee arthroplasty, subsequent encounter 07/14/2011 11/19/2017 Esophagitis, unspecified 01/14/2010 018 Menorrhagia 12/27/2009 08/18/2011 Onychia and paronychia of toe 06/22/2008 Ingrowing nail 05/14/2008 08/06/2017 Other plastic surgery for unacceptable cosmetic appearance 08/21/2007 08/06/2017 Varicose veins of lower extremities with other c omplications 02/20/2007 08/06/2017 Anemia, unspecified 04/14/2016 Overview: due to heavy menstrual cycles SMOKER 09/11/2014 documented as of this encounter (statuses as of 10/31/2021) [facility]01-[facility] History of Past illness Narrative* Problem Noted Date Resolved Date Primary osteoarthritis of right knee 07/31/2017 08/23/2017 Overview: Added automatically from request for surgery [id number] Counseling and coordination of care 12/02/2014 02/26/2015 Thickened endometrium 09/12/2011 09/11/2013 Abnormal uterine bleeding 09/12/20112013 Pain in joint, lower leg 08/10/2011 018 Arthrofibrosis of total knee arthroplasty, subsequent encounter 07/14/2011 11/19/2017 Esophagitis, unspecified 01/14/2010 018 Menorrhagia 12/27/2009 08/18/2011 Onychia and paronychia of toe 06/22/2008 Ingrowing nail 05/14/2008 08/06/2017 Other plastic surgery for unacceptable cosmetic appearance 08/21/2007 08/06/2017 Varicose veins of lower extremities with other c omplications 02/20/2007 08/06/2017 Anemia, unspecified 04/14/2016 Overview: due to heavy menstrual cycles SMOKER 09/11/2014 documented as of this encounter (statuses as of 11/09/2021) [facility]01[facility] History of Past illness Narrative* Problem Noted Date Resolved Date Primary osteoarthritis of right knee 07/31/2017 08/23/2017 Overview: Added automatically from request for surgery [id number] Counseling and coordination of care 12/02/2014 02/26/2015 Thickened endometrium 09/12/2011 09/11/2013 Abnormal uterine bleeding 09/12/20112013 Pain in joint, lower leg 08/10/2011 018 Arthrofibrosis of total knee arthroplasty, subsequent encounter 07/14/2011 11/19/2017 Esophagitis, unspecified 01/14/2010 018 Menorrhagia 12/27/2009 08/18/2011 Onychia and paronychia of toe 06/22/2008 Ingrowing nail 05/14/2008 08/06/2017 Other plastic surgery for unacceptable cosmetic appearance 08/21/2007 08/06/2017 Varicose veins of lower extremities with other c omplications 02/20/2007 08/06/2017 Anemia, unspecified 04/14/2016 Overview: due to heavy menstrual cycles SMOKER 09/11/2014 documented as of this encounter (statuses as of 11/15/2021) [facility]01-[facility] History of Past illness Narrative* Problem Noted Date Resolved Date Primary osteoarthritis of right knee 07/31/2017 08/23/2017 Overview: Added automatically from request for surgery [id number] Counseling and coordination of care 12/02/2014 02/26/2015 Thickened endometrium 09/12/2011 09/11/2013 Abnormal uterine bleeding 09/12/20112013 Pain in joint, lower leg 08/10/2011 018 Arthrofibrosis of total knee arthroplasty, subsequent encounter 07/14/2011 11/19/2017 Esophagitis, unspecified 01/14/2010 018 Menorrhagia 12/27/2009 08/18/2011 Onychia and paronychia of toe 06/22/2008 Ingrowing nail 05/14/2008 08/06/2017 Other plastic surgery for unacceptable cosmetic appearance 08/21/2007 08/06/2017 Varicose veins of lower extremities with other c omplications 02/20/2007 08/06/2017 Anemia, unspecified 04/14/2016 Overview: due to heavy menstrual cycles SMOKER 09/11/2014 documented as of this encounter (statuses as of 11/15/2021) [facility]01-[facility] History of Past illness Narrative* Problem Noted Date Resolved Date Primary osteoarthritis of right knee 07/31/2017 08/23/2017 Overview: Added automatically from request for surgery [id number] Counseling and coordination of care 12/02/2014 02/26/2015 Thickened endometrium 09/12/2011 09/11/2013 Abnormal uterine bleeding 09/12/20112013 Pain in joint, lower leg 08/10/2011 018 Arthrofibrosis of total knee arthroplasty, subsequent encounter 07/14/2011 11/19/2017 Esophagitis, unspecified 01/14/2010 018 Menorrhagia 12/27/2009 08/18/2011 Onychia and paronychia of toe 06/22/2008 Ingrowing nail 05/14/2008 08/06/2017 Other plastic surgery for unacceptable cosmetic appearance 08/21/2007 08/06/2017 Varicose veins of lower extremities with other c omplications 02/20/2007 08/06/2017 Anemia, unspecified 04/14/2016 Overview: due to heavy menstrual cycles SMOKER 09/11/2014 documented as of this encounter (statuses as of 11/16/2021) [facility]01[facility] History of Past illness Narrative* Problem Noted Date Resolved Date Primary osteoarthritis of right knee 07/31/2017 08/23/2017 Overview: Added automatically from request for surgery [id number] Counseling and coordination of care 12/02/2014 02/26/2015 Thickened endometrium 09/12/2011 09/11/2013 Abnormal uterine bleeding 09/12/20112013 Pain in joint, lower leg 08/10/2011 018 Arthrofibrosis of total knee arthroplasty, subsequent encounter 07/14/2011 11/19/2017 Esophagitis, unspecified 01/14/2010 018 Menorrhagia 12/27/2009 08/18/2011 Onychia and paronychia of toe 06/22/2008 Ingrowing nail 05/14/2008 08/06/2017 Other plastic surgery for unacceptable cosmetic appearance 08/21/2007 08/06/2017 Varicose veins of lower extremities with other c omplications 02/20/2007 08/06/2017 Anemia, unspecified 04/14/2016 Overview: due to heavy menstrual cycles SMOKER 09/11/2014 documented as of this encounter (statuses as of 11/16/2021) [facility]01-[facility] History of Past illness Narrative* Problem Noted Date Resolved Date Primary osteoarthritis of right knee 07/31/2017 08/23/2017 Overview: Added automatically from request for surgery [id number] Counseling and coordination of care 12/02/2014 02/26/2015 Thickened endometrium 09/12/2011 09/11/2013 Abnormal uterine bleeding 09/12/20112013 Pain in joint, lower leg 08/10/2011 018 Arthrofibrosis of total knee arthroplasty, subsequent encounter 07/14/2011 11/19/2017 Esophagitis, unspecified 01/14/2010 018 Menorrhagia 12/27/2009 08/18/2011 Onychia and paronychia of toe 06/22/2008 Ingrowing nail 05/14/2008 08/06/2017 Other plastic surgery for unacceptable cosmetic appearance 08/21/2007 08/06/2017 Varicose veins of lower extremities with other c omplications 02/20/2007 08/06/2017 Anemia, unspecified 04/14/2016 Overview: due to heavy menstrual cycles SMOKER 09/11/2014 documented as of this encounter (statuses as of 11/22/2021) [facility]01[facility] History of Past illness Narrative* Problem Noted Date Resolved Date Primary osteoarthritis of right knee 07/31/2017 08/23/2017 Overview: Added automatically from request for surgery [id number] Counseling and coordination of care 12/02/2014 02/26/2015 Thickened endometrium 09/12/2011 09/11/2013 Abnormal uterine bleeding 09/12/20112013 Pain in joint, lower leg 08/10/2011 018 Arthrofibrosis of total knee arthroplasty, subsequent encounter 07/14/2011 11/19/2017 Esophagitis, unspecified 01/14/2010 018 Menorrhagia 12/27/2009 08/18/2011 Onychia and paronychia of toe 06/22/2008 Ingrowing nail 05/14/2008 08/06/2017 Other plastic surgery for unacceptable cosmetic appearance 08/21/2007 08/06/2017 Varicose veins of lower extremities with other c omplications 02/20/2007 08/06/2017 Anemia, unspecified 04/14/2016 Overview: due to heavy menstrual cycles SMOKER 09/11/2014 documented as of this encounter (statuses as of 11/23/2021) [facility]01[facility] History of Past illness Narrative* Problem Noted Date Resolved Date Primary osteoarthritis of right knee 07/31/2017 08/23/2017 Overview: Added automatically from request for surgery [id number] Counseling and coordination of care 12/02/2014 02/26/2015 Thickened endometrium 09/12/2011 09/11/2013 Abnormal uterine bleeding 09/12/20112013 Pain in joint, lower leg 08/10/2011 018 Arthrofibrosis of total knee arthroplasty, subsequent encounter 07/14/2011 11/19/2017 Esophagitis, unspecified 01/14/2010 018 Menorrhagia 12/27/2009 08/18/2011 Onychia and paronychia of toe 06/22/2008 Ingrowing nail 05/14/2008 08/06/2017 Other plastic surgery for unacceptable cosmetic appearance 08/21/2007 08/06/2017 Varicose veins of lower extremities with other c omplications 02/20/2007 08/06/2017 Anemia, unspecified 04/14/2016 Overview: due to heavy menstrual cycles SMOKER 09/11/2014 documented as of this encounter (statuses as of 11/28/2021) [facility]01[facility] History of Past illness Narrative* Problem Noted Date Resolved Date Primary osteoarthritis of right knee 07/31/2017 08/23/2017 Overview: Added automatically from request for surgery [id number] Counseling and coordination of care 12/02/2014 02/26/2015 Thickened endometrium 09/12/2011 09/11/2013 Abnormal uterine bleeding 09/12/20112013 Pain in joint, lower leg 08/10/2011 018 Arthrofibrosis of total knee arthroplasty, subsequent encounter 07/14/2011 11/19/2017 Esophagitis, unspecified 01/14/2010 018 Menorrhagia 12/27/2009 08/18/2011 Onychia and paronychia of toe 06/22/2008 Ingrowing nail 05/14/2008 08/06/2017 Other plastic surgery for unacceptable cosmetic appearance 08/21/2007 08/06/2017 Varicose veins of lower extremities with other c omplications 02/20/2007 08/06/2017 Anemia, unspecified 04/14/2016 Overview: due to heavy menstrual cycles SMOKER 09/11/2014 documented as of this encounter (statuses as of 11/30/2021) [facility]01[facility] History of Past illness Narrative* Problem Noted Date Resolved Date Primary osteoarthritis of right knee 07/31/2017 08/23/2017 Overview: Added automatically from request for surgery [id number] Counseling and coordination of care 12/02/2014 02/26/2015 Thickened endometrium 09/12/2011 09/11/2013 Abnormal uterine bleeding 09/12/20112013 Pain in joint, lower leg 08/10/2011 018 Arthrofibrosis of total knee arthroplasty, subsequent encounter 07/14/2011 11/19/2017 Esophagitis, unspecified 01/14/2010 018 Menorrhagia 12/27/2009 08/18/2011 Onychia and paronychia of toe 06/22/2008 Ingrowing nail 05/14/2008 08/06/2017 Other plastic surgery for unacceptable cosmetic appearance 08/21/2007 08/06/2017 Varicose veins of lower extremities with other c omplications 02/20/2007 08/06/2017 Anemia, unspecified 04/14/2016 Overview: due to heavy menstrual cycles SMOKER 09/11/2014 documented as of this encounter (statuses as of 12/01/2021) [facility]01-23[facility]2018 History of Past illness Narrative* Problem Noted Date Resolved Date Primary osteoarthritis of right knee 07/31/2017 08/23/2017 Overview: Added automatically from request for surgery [id number] Counseling and coordination of care 12/02/2014 02/26/2015 Thickened endometrium 09/12/2011 09/11/2013 Abnormal uterine bleeding 09/12/20112013 Pain in joint, lower leg 08/10/2011 018 Arthrofibrosis of total knee arthroplasty, subsequent encounter 07/14/2011 11/19/2017 Esophagitis, unspecified 01/14/2010 018 Menorrhagia 12/27/2009 08/18/2011 Onychia and paronychia of toe 06/22/2008 Ingrowing nail 05/14/2008 08/06/2017 Other plastic surgery for unacceptable cosmetic appearance 08/21/2007 08/06/2017 Varicose veins of lower extremities with other c omplications 02/20/2007 08/06/2017 Anemia, unspecified 04/14/2016 Overview: due to heavy menstrual cycles SMOKER 09/11/2014 documented as of this encounter (statuses as of 12/01/2021) [facility]01-23-2018 History of Past illness Narrative* Problem Noted Date Resolved Date Primary osteoarthritis of right knee 07/31/2017 08/23/2017 Overview: Added automatically from request for surgery [id number] Counseling and coordination of care 12/02/2014 02/26/2015 Thickened endometrium 09/12/2011 09/11/2013 Abnormal uterine bleeding 09/12/20112013 Pain in joint, lower leg 08/10/2011 018 Arthrofibrosis of total knee arthroplasty, subsequent encounter 07/14/2011 11/19/2017 Esophagitis, unspecified 01/14/2010 018 Menorrhagia 12/27/2009 08/18/2011 Onychia and paronychia of toe 06/22/2008 Ingrowing nail 05/14/2008 08/06/2017 Other plastic surgery for unacceptable cosmetic appearance 08/21/2007 08/06/2017 Varicose veins of lower extremities with other c omplications 02/20/2007 08/06/2017 Anemia, unspecified 04/14/2016 Overview: due to heavy menstrual cycles SMOKER 09/11/2014 documented as of this encounter (statuses as of 12/02/2021) [facility]01-23[facility] History of Past illness Narrative* Problem Noted Date Resolved Date Primary osteoarthritis of right knee 07/31/2017 08/23/2017 Overview: Added automatically from request for surgery [id number] Counseling and coordination of care 12/02/2014 02/26/2015 Thickened endometrium 09/12/2011 09/11/2013 Abnormal uterine bleeding 09/12/20112013 Pain in joint, lower leg 08/10/2011 018 Arthrofibrosis of total knee arthroplasty, subsequent encounter 07/14/2011 11/19/2017 Esophagitis, unspecified 01/14/2010 018 Menorrhagia 12/27/2009 08/18/2011 Onychia and paronychia of toe 06/22/2008 Ingrowing nail 05/14/2008 08/06/2017 Other plastic surgery for unacceptable cosmetic appearance 08/21/2007 08/06/2017 Varicose veins of lower extremities with other c omplications 02/20/2007 08/06/2017 Anemia, unspecified 04/14/2016 Overview: due to heavy menstrual cycles SMOKER 09/11/2014 documented as of this encounter (statuses as of 12/07/2021) [facility]01-23[facility] History of Past illness Narrative* Problem Noted Date Resolved Date Primary osteoarthritis of right knee 07/31/2017 08/23/2017 Overview: Added automatically from request for surgery [id number] Counseling and coordination of care 12/02/2014 02/26/2015 Thickened endometrium 09/12/2011 09/11/2013 Abnormal uterine bleeding 09/12/20112013 Pain in joint, lower leg 08/10/2011 018 Arthrofibrosis of total knee arthroplasty, subsequent encounter 07/14/2011 11/19/2017 Esophagitis, unspecified 01/14/2010 018 Menorrhagia 12/27/2009 08/18/2011 Onychia and paronychia of toe 06/22/2008 Ingrowing nail 05/14/2008 08/06/2017 Other plastic surgery for unacceptable cosmetic appearance 08/21/2007 08/06/2017 Varicose veins of lower extremities with other c omplications 02/20/2007 08/06/2017 Anemia, unspecified 04/14/2016 Overview: due to heavy menstrual cycles SMOKER 09/11/2014 documented as of this encounter (statuses as of 12/20/2021) [facility]01-23[facility] History of Past illness Narrative* Problem Noted Date Resolved Date Primary osteoarthritis of right knee 07/31/2017 08/23/2017 Overview: Added automatically from request for surgery [id number] Counseling and coordination of care 12/02/2014 02/26/2015 Thickened endometrium 09/12/2011 09/11/2013 Abnormal uterine bleeding 09/12/20112013 Pain in joint, lower leg 08/10/2011 018 Arthrofibrosis of total knee arthroplasty, subsequent encounter 07/14/2011 11/19/2017 Esophagitis, unspecified 01/14/2010 018 Menorrhagia 12/27/2009 08/18/2011 Onychia and paronychia of toe 06/22/2008 Ingrowing nail 05/14/2008 08/06/2017 Other plastic surgery for unacceptable cosmetic appearance 08/21/2007 08/06/2017 Varicose veins of lower extremities with other c omplications 02/20/2007 08/06/2017 Anemia, unspecified 04/14/2016 Overview: due to heavy menstrual cycles SMOKER 09/11/2014 documented as of this encounter (statuses as of 12/29/2021) [facility]01-23-2018 History of Past illness Narrative* Problem Noted Date Resolved Date Primary osteoarthritis of right knee 07/31/2017 08/23/2017 Overview: Added automatically from request for surgery [id number] Counseling and coordination of care 12/02/2014 02/26/2015 Thickened endometrium 09/12/2011 09/11/2013 Abnormal uterine bleeding 09/12/20112013 Pain in joint, lower leg 08/10/2011 018 Arthrofibrosis of total knee arthroplasty, subsequent encounter 07/14/2011 11/19/2017 Esophagitis, unspecified 01/14/2010 018 Menorrhagia 12/27/2009 08/18/2011 Onychia and paronychia of toe 06/22/2008 Ingrowing nail 05/14/2008 08/06/2017 Other plastic surgery for unacceptable cosmetic appearance 08/21/2007 08/06/2017 Varicose veins of lower extremities with other c omplications 02/20/2007 08/06/2017 Anemia, unspecified 04/14/2016 Overview: due to heavy menstrual cycles SMOKER 09/11/2014 documented as of this encounter (statuses as of 01/05/2022) [facility]01-23[facility] History of Past illness Narrative* Problem Noted Date Resolved Date Primary osteoarthritis of right knee 07/31/2017 08/23/2017 Overview: Added automatically from request for surgery [id number] Counseling and coordination of care 12/02/2014 02/26/2015 Thickened endometrium 09/12/2011 09/11/2013 Abnormal uterine bleeding 09/12/20112013 Pain in joint, lower leg 08/10/2011 018 Arthrofibrosis of total knee arthroplasty, subsequent encounter 07/14/2011 11/19/2017 Esophagitis, unspecified 01/14/2010 018 Menorrhagia 12/27/2009 08/18/2011 Onychia and paronychia of toe 06/22/2008 Ingrowing nail 05/14/2008 08/06/2017 Other plastic surgery for unacceptable cosmetic appearance 08/21/2007 08/06/2017 Varicose veins of lower extremities with other c omplications 02/20/2007 08/06/2017 Anemia, unspecified 04/14/2016 Overview: due to heavy menstrual cycles SMOKER 09/11/2014 documented as of this encounter (statuses as of 01/10/2022) [facility]01-[facility] History of Past illness Narrative* Problem Noted Date Resolved Date Primary osteoarthritis of right knee 07/31/2017 08/23/2017 Overview: Added automatically from request for surgery [id number] Counseling and coordination of care 12/02/2014 02/26/2015 Thickened endometrium 09/12/2011 09/11/2013 Abnormal uterine bleeding 09/12/20112013 Pain in joint, lower leg 08/10/2011 018 Arthrofibrosis of total knee arthroplasty, subsequent encounter 07/14/2011 11/19/2017 Esophagitis, unspecified 01/14/2010 018 Menorrhagia 12/27/2009 08/18/2011 Onychia and paronychia of toe 06/22/2008 Ingrowing nail 05/14/2008 08/06/2017 Other plastic surgery for unacceptable cosmetic appearance 08/21/2007 08/06/2017 Varicose veins of lower extremities with other c omplications 02/20/2007 08/06/2017 Anemia, unspecified 04/14/2016 Overview: due to heavy menstrual cycles SMOKER 09/11/2014 documented as of this encounter (statuses as of 01/17/2022) [facility]01[facility] History of Past illness Narrative* Problem Noted Date Resolved Date Primary osteoarthritis of right knee 07/31/2017 08/23/2017 Overview: Added automatically from request for surgery [id number] Counseling and coordination of care 12/02/2014 02/26/2015 Thickened endometrium 09/12/2011 09/11/2013 Abnormal uterine bleeding 09/12/20112013 Pain in joint, lower leg 08/10/2011 018 Arthrofibrosis of total knee arthroplasty, subsequent encounter 07/14/2011 11/19/2017 Esophagitis, unspecified 01/14/2010 018 Menorrhagia 12/27/2009 08/18/2011 Onychia and paronychia of toe 06/22/2008 Ingrowing nail 05/14/2008 08/06/2017 Other plastic surgery for unacceptable cosmetic appearance 08/21/2007 08/06/2017 Varicose veins of lower extremities with other c omplications 02/20/2007 08/06/2017 Anemia, unspecified 04/14/2016 Overview: due to heavy menstrual cycles SMOKER 09/11/2014 documented as of this encounter (statuses as of 01/20/2022) [facility]01[facility] History of Past illness Narrative* Problem Noted Date Resolved Date Primary osteoarthritis of right knee 07/31/2017 08/23/2017 Overview: Added automatically from request for surgery [id number] Counseling and coordination of care 12/02/2014 02/26/2015 Thickened endometrium 09/12/2011 09/11/2013 Abnormal uterine bleeding 09/12/20112013 Pain in joint, lower leg 08/10/2011 018 Arthrofibrosis of total knee arthroplasty, subsequent encounter 07/14/2011 11/19/2017 Esophagitis, unspecified 01/14/2010 018 Menorrhagia 12/27/2009 08/18/2011 Onychia and paronychia of toe 06/22/2008 Ingrowing nail 05/14/2008 08/06/2017 Other plastic surgery for unacceptable cosmetic appearance 08/21/2007 08/06/2017 Varicose veins of lower extremities with other c omplications 02/20/2007 08/06/2017 Anemia, unspecified 04/14/2016 Overview: due to heavy menstrual cycles SMOKER 09/11/2014 documented as of this encounter (statuses as of 01/27/2022) [facility]01[facility] History of Past illness Narrative* Problem Noted Date Resolved Date Primary osteoarthritis of right knee 07/31/2017 08/23/2017 Overview: Added automatically from request for surgery [id number] Counseling and coordination of care 12/02/2014 02/26/2015 Thickened endometrium 09/12/2011 09/11/2013 Abnormal uterine bleeding 09/12/20112013 Pain in joint, lower leg 08/10/2011 018 Arthrofibrosis of total knee arthroplasty, subsequent encounter 07/14/2011 11/19/2017 Esophagitis, unspecified 01/14/2010 018 Menorrhagia 12/27/2009 08/18/2011 Onychia and paronychia of toe 06/22/2008 Ingrowing nail 05/14/2008 08/06/2017 Other plastic surgery for unacceptable cosmetic appearance 08/21/2007 08/06/2017 Varicose veins of lower extremities with other c omplications 02/20/2007 08/06/2017 Anemia, unspecified 04/14/2016 Overview: due to heavy menstrual cycles SMOKER 09/11/2014 documented as of this encounter (statuses as of 02/03/2022) [facility]01[facility] History of Past illness Narrative* Problem Noted Date Resolved Date Primary osteoarthritis of right knee 07/31/2017 08/23/2017 Overview: Added automatically from request for surgery [id number] Counseling and coordination of care 12/02/2014 02/26/2015 Thickened endometrium 09/12/2011 09/11/2013 Abnormal uterine bleeding 09/12/20112013 Pain in joint, lower leg 08/10/2011 018 Arthrofibrosis of total knee arthroplasty, subsequent encounter 07/14/2011 11/19/2017 Esophagitis, unspecified 01/14/2010 018 Menorrhagia 12/27/2009 08/18/2011 Onychia and paronychia of toe 06/22/2008 Ingrowing nail 05/14/2008 08/06/2017 Other plastic surgery for unacceptable cosmetic appearance 08/21/2007 08/06/2017 Varicose veins of lower extremities with other c omplications 02/20/2007 08/06/2017 Anemia, unspecified 04/14/2016 Overview: due to heavy menstrual cycles SMOKER 09/11/2014 documented as of this encounter (statuses as of 03/28/2022) [facility] History of Past illness Narrative* Problem Noted Date Resolved Date Primary osteoarthritis of right knee 07/31/2017 08/23/2017 Overview: Added automatically from request for surgery [id number] Counseling and coordination of care 12/02/2014 02/26/2015 Thickened endometrium 09/12/2011 09/11/2013 Abnormal uterine bleeding 09/12/20112013 Pain in joint, lower leg 08/10/2011 018 Arthrofibrosis of total knee arthroplasty, subsequent encounter 07/14/2011 11/19/2017 Esophagitis, unspecified 01/14/2010 018 Menorrhagia 12/27/2009 08/18/2011 Onychia and paronychia of toe 06/22/2008 Ingrowing nail 05/14/2008 08/06/2017 Other plastic surgery for unacceptable cosmetic appearance 08/21/2007 08/06/2017 Varicose veins of lower extremities with other c omplications 02/20/2007 08/06/2017 Anemia, unspecified 04/14/2016 Overview: due to heavy menstrual cycles SMOKER 09/11/2014 documented as of this encounter (statuses as of 04/06/2022) [facility] History of Past illness Narrative* Problem Noted Date Resolved Date Primary osteoarthritis of right knee 07/31/2017 08/23/2017 Overview: Added automatically from request for surgery [id number] Counseling and coordination of care 12/02/2014 02/26/2015 Thickened endometrium 09/12/2011 09/11/2013 Abnormal uterine bleeding 09/12/20112013 Pain in joint, lower leg 08/10/2011 018 Arthrofibrosis of total knee arthroplasty, subsequent encounter 07/14/2011 11/19/2017 Esophagitis, unspecified 01/14/2010 018 Menorrhagia 12/27/2009 08/18/2011 Onychia and paronychia of toe 06/22/2008 Ingrowing nail 05/14/2008 08/06/2017 Other plastic surgery for unacceptable cosmetic appearance 08/21/2007 08/06/2017 Varicose veins of lower extremities with other c omplications 02/20/2007 08/06/2017 Anemia, unspecified 04/14/2016 Overview: due to heavy menstrual cycles SMOKER 09/11/2014 documented as of this encounter (statuses as of 04/24/2022) [facility]01-23-2018 History of Past illness Narrative* Problem Noted Date Resolved Date Primary osteoarthritis of right knee 07/31/2017 08/23/2017 Overview: Added automatically from request for surgery [id number] Counseling and coordination of care 12/02/2014 02/26/2015 Thickened endometrium 09/12/2011 09/11/2013 Abnormal uterine bleeding 09/12/20112013 Pain in joint, lower leg 08/10/2011 018 Arthrofibrosis of total knee arthroplasty, subsequent encounter 07/14/2011 11/19/2017 Esophagitis, unspecified 01/14/2010 018 Menorrhagia 12/27/2009 08/18/2011 Onychia and paronychia of toe 06/22/2008 Ingrowing nail 05/14/2008 08/06/2017 Other plastic surgery for unacceptable cosmetic appearance 08/21/2007 08/06/2017 Varicose veins of lower extremities with other c omplications 02/20/2007 08/06/2017 Anemia, unspecified 04/14/2016 Overview: due to heavy menstrual cycles SMOKER 09/11/2014 documented as of this encounter (statuses as of 05/04/2022) [facility]01[facility]2018 History of Past illness Narrative* Problem Noted Date Resolved Date Primary osteoarthritis of right knee 07/31/2017 08/23/2017 Overview: Added automatically from request for surgery [id number] Counseling and coordination of care 12/02/2014 02/26/2015 Thickened endometrium 09/12/2011 09/11/2013 Abnormal uterine bleeding 09/12/20112013 Pain in joint, lower leg 08/10/2011 018 Arthrofibrosis of total knee arthroplasty, subsequent encounter 07/14/2011 11/19/2017 Esophagitis, unspecified 01/14/2010 018 Menorrhagia 12/27/2009 08/18/2011 Onychia and paronychia of toe 06/22/2008 Ingrowing nail 05/14/2008 08/06/2017 Other plastic surgery for unacceptable cosmetic appearance 08/21/2007 08/06/2017 Varicose veins of lower extremities with other c omplications 02/20/2007 08/06/2017 Anemia, unspecified 04/14/2016 Overview: due to heavy menstrual cycles SMOKER 09/11/2014 documented as of this encounter (statuses as of 05/17/2022) [facility]01[facility]2018 History of Past illness Narrative* Problem Noted Date Resolved Date Primary osteoarthritis of right knee 07/31/2017 08/23/2017 Overview: Added automatically from request for surgery [id number] Counseling and coordination of care 12/02/2014 02/26/2015 Thickened endometrium 09/12/2011 09/11/2013 Abnormal uterine bleeding 09/12/20112013 Pain in joint, lower leg 08/10/2011 018 Arthrofibrosis of total knee arthroplasty, subsequent encounter 07/14/2011 11/19/2017 Esophagitis, unspecified 01/14/2010 018 Menorrhagia 12/27/2009 08/18/2011 Onychia and paronychia of toe 06/22/2008 Ingrowing nail 05/14/2008 08/06/2017 Other plastic surgery for unacceptable cosmetic appearance 08/21/2007 08/06/2017 Varicose veins of lower extremities with other c omplications 02/20/2007 08/06/2017 Anemia, unspecified 04/14/2016 Overview: due to heavy menstrual cycles SMOKER 09/11/2014 documented as of this encounter (statuses as of 05/22/2022) [facility]01[facility] History of Past illness Narrative* Problem Noted Date Resolved Date Primary osteoarthritis of right knee 07/31/2017 08/23/2017 Overview: Added automatically from request for surgery [id number] Counseling and coordination of care 12/02/2014 02/26/2015 Thickened endometrium 09/12/2011 09/11/2013 Abnormal uterine bleeding 09/12/20112013 Pain in joint, lower leg 08/10/2011 018 Arthrofibrosis of total knee arthroplasty, subsequent encounter 07/14/2011 11/19/2017 Esophagitis, unspecified 01/14/2010 018 Menorrhagia 12/27/2009 08/18/2011 Onychia and paronychia of toe 06/22/2008 Ingrowing nail 05/14/2008 08/06/2017 Other plastic surgery for unacceptable cosmetic appearance 08/21/2007 08/06/2017 Varicose veins of lower extremities with other c omplications 02/20/2007 08/06/2017 Anemia, unspecified 04/14/2016 Overview: due to heavy menstrual cycles SMOKER 09/11/2014 documented as of this encounter (statuses as of 06/20/2022) [facility]01[facility] History of Past illness Narrative* Problem Noted Date Resolved Date Primary osteoarthritis of right knee 07/31/2017 08/23/2017 Overview: Added automatically from request for surgery [id number] Counseling and coordination of care 12/02/2014 02/26/2015 Thickened endometrium 09/12/2011 09/11/2013 Abnormal uterine bleeding 09/12/20112013 Pain in joint, lower leg 08/10/2011 018 Arthrofibrosis of total knee arthroplasty, subsequent encounter 07/14/2011 11/19/2017 Esophagitis, unspecified 01/14/2010 018 Menorrhagia 12/27/2009 08/18/2011 Onychia and paronychia of toe 06/22/2008 Ingrowing nail 05/14/2008 08/06/2017 Other plastic surgery for unacceptable cosmetic appearance 08/21/2007 08/06/2017 Varicose veins of lower extremities with other c omplications 02/20/2007 08/06/2017 Anemia, unspecified 04/14/2016 Overview: due to heavy menstrual cycles SMOKER 09/11/2014 documented as of this encounter (statuses as of 07/02/2022) [facility]01[facility] History of Past illness Narrative* Problem Noted Date Resolved Date Primary osteoarthritis of right knee 07/31/2017 08/23/2017 Overview: Added automatically from request for surgery [id number] Counseling and coordination of care 12/02/2014 02/26/2015 Thickened endometrium 09/12/2011 09/11/2013 Abnormal uterine bleeding 09/12/20112013 Pain in joint, lower leg 08/10/2011 018 Arthrofibrosis of total knee arthroplasty, subsequent encounter 07/14/2011 11/19/2017 Esophagitis, unspecified 01/14/2010 018 Menorrhagia 12/27/2009 08/18/2011 Onychia and paronychia of toe 06/22/2008 Ingrowing nail 05/14/2008 08/06/2017 Other plastic surgery for unacceptable cosmetic appearance 08/21/2007 08/06/2017 Varicose veins of lower extremities with other c omplications 02/20/2007 08/06/2017 Anemia, unspecified 04/14/2016 Overview: due to heavy menstrual cycles SMOKER 09/11/2014 documented as of this encounter (statuses as of 07/14/2022) [facility]01[facility] History of Past illness Narrative* Problem Noted Date Resolved Date Primary osteoarthritis of right knee 07/31/2017 08/23/2017 Overview: Added automatically from request for surgery [id number] Counseling and coordination of care 12/02/2014 02/26/2015 Thickened endometrium 09/12/2011 09/11/2013 Abnormal uterine bleeding 09/12/20112013 Pain in joint, lower leg 08/10/2011 018 Arthrofibrosis of total knee arthroplasty, subsequent encounter 07/14/2011 11/19/2017 Esophagitis, unspecified 01/14/2010 018 Menorrhagia 12/27/2009 08/18/2011 Onychia and paronychia of toe 06/22/2008 Ingrowing nail 05/14/2008 08/06/2017 Other plastic surgery for unacceptable cosmetic appearance 08/21/2007 08/06/2017 Varicose veins of lower extremities with other c omplications 02/20/2007 08/06/2017 Anemia, unspecified 04/14/2016 Overview: due to heavy menstrual cycles SMOKER 09/11/2014 documented as of this encounter (statuses as of 07/17/2022) [facility]01[facility]2018 History of Past illness Narrative* Problem Noted Date Resolved Date Primary osteoarthritis of right knee 07/31/2017 08/23/2017 Overview: Added automatically from request for surgery [id number] Counseling and coordination of care 12/02/2014 02/26/2015 Thickened endometrium 09/12/2011 09/11/2013 Abnormal uterine bleeding 09/12/20112013 Pain in joint, lower leg 08/10/2011 018 Arthrofibrosis of total knee arthroplasty, subsequent encounter 07/14/2011 11/19/2017 Esophagitis, unspecified 01/14/2010 018 Menorrhagia 12/27/2009 08/18/2011 Onychia and paronychia of toe 06/22/2008 Ingrowing nail 05/14/2008 08/06/2017 Other plastic surgery for unacceptable cosmetic appearance 08/21/2007 08/06/2017 Varicose veins of lower extremities with other c omplications 02/20/2007 08/06/2017 Anemia, unspecified 04/14/2016 Overview: due to heavy menstrual cycles SMOKER 09/11/2014 documented as of this encounter (statuses as of 07/24/2022) [facility]01[facility] History of Past illness Narrative* Problem Noted Date Resolved Date Primary osteoarthritis of right knee 07/31/2017 08/23/2017 Overview: Added automatically from request for surgery [id number] Counseling and coordination of care 12/02/2014 02/26/2015 Thickened endometrium 09/12/2011 09/11/2013 Abnormal uterine bleeding 09/12/20112013 Pain in joint, lower leg 08/10/2011 018 Arthrofibrosis of total knee arthroplasty, subsequent encounter 07/14/2011 11/19/2017 Esophagitis, unspecified 01/14/2010 018 Menorrhagia 12/27/2009 08/18/2011 Onychia and paronychia of toe 06/22/2008 Ingrowing nail 05/14/2008 08/06/2017 Other plastic surgery for unacceptable cosmetic appearance 08/21/2007 08/06/2017 Varicose veins of lower extremities with other c omplications 02/20/2007 08/06/2017 Anemia, unspecified 04/14/2016 Overview: due to heavy menstrual cycles SMOKER 09/11/2014 documented as of this encounter (statuses as of 08/07/2022) [facility]01[facility]2018 History of Past illness Narrative* Problem Noted Date Resolved Date Primary osteoarthritis of right knee 07/31/2017 08/23/2017 Overview: Added automatically from request for surgery [id number] Counseling and coordination of care 12/02/2014 02/26/2015 Thickened endometrium 09/12/2011 09/11/2013 Abnormal uterine bleeding 09/12/20112013 Pain in joint, lower leg 08/10/2011 018 Arthrofibrosis of total knee arthroplasty, subsequent encounter 07/14/2011 11/19/2017 Esophagitis, unspecified 01/14/2010 018 Menorrhagia 12/27/2009 08/18/2011 Onychia and paronychia of toe 06/22/2008 Ingrowing nail 05/14/2008 08/06/2017 Other plastic surgery for unacceptable cosmetic appearance 08/21/2007 08/06/2017 Varicose veins of lower extremities with other c omplications 02/20/2007 08/06/2017 Anemia, unspecified 04/14/2016 Overview: due to heavy menstrual cycles SMOKER 09/11/2014 documented as of this encounter (statuses as of 08/10/2022) [facility]01[facility]2018 History of Past illness Narrative* Problem Noted Date Resolved Date Primary osteoarthritis of right knee 07/31/2017 08/23/2017 Overview: Added automatically from request for surgery [id number] Counseling and coordination of care 12/02/2014 02/26/2015 Thickened endometrium 09/12/2011 09/11/2013 Abnormal uterine bleeding 09/12/20112013 Pain in joint, lower leg 08/10/2011 018 Arthrofibrosis of total knee arthroplasty, subsequent encounter 07/14/2011 11/19/2017 Esophagitis, unspecified 01/14/2010 018 Menorrhagia 12/27/2009 08/18/2011 Onychia and paronychia of toe 06/22/2008 Ingrowing nail 05/14/2008 08/06/2017 Other plastic surgery for unacceptable cosmetic appearance 08/21/2007 08/06/2017 Varicose veins of lower extremities with other c omplications 02/20/2007 08/06/2017 Anemia, unspecified 04/14/2016 Overview: due to heavy menstrual cycles SMOKER 09/11/2014 documented as of this encounter (statuses as of 08/16/2022) [facility]01[facility]2018 History of Past illness Narrative* Problem Noted Date Resolved Date Primary osteoarthritis of right knee 07/31/2017 08/23/2017 Overview: Added automatically from request for surgery [id number] Counseling and coordination of care 12/02/2014 02/26/2015 Thickened endometrium 09/12/2011 09/11/2013 Abnormal uterine bleeding 09/12/20112013 Pain in joint, lower leg 08/10/2011 018 Arthrofibrosis of total knee arthroplasty, subsequent encounter 07/14/2011 11/19/2017 Esophagitis, unspecified 01/14/2010 018 Menorrhagia 12/27/2009 08/18/2011 Onychia and paronychia of toe 06/22/2008 Ingrowing nail 05/14/2008 08/06/2017 Other plastic surgery for unacceptable cosmetic appearance 08/21/2007 08/06/2017 Varicose veins of lower extremities with other c omplications 02/20/2007 08/06/2017 Anemia, unspecified 04/14/2016 Overview: due to heavy menstrual cycles SMOKER 09/11/2014 documented as of this encounter (statuses as of 08/24/2022) [facility]01[facility]2018 History of Past illness Narrative* Problem Noted Date Resolved Date Primary osteoarthritis of right knee 07/31/2017 08/23/2017 Overview: Added automatically from request for surgery [id number] Counseling and coordination of care 12/02/2014 02/26/2015 Thickened endometrium 09/12/2011 09/11/2013 Abnormal uterine bleeding 09/12/20112013 Pain in joint, lower leg 08/10/2011 018 Arthrofibrosis of total knee arthroplasty, subsequent encounter 07/14/2011 11/19/2017 Esophagitis, unspecified 01/14/2010 018 Menorrhagia 12/27/2009 08/18/2011 Onychia and paronychia of toe 06/22/2008 Ingrowing nail 05/14/2008 08/06/2017 Other plastic surgery for unacceptable cosmetic appearance 08/21/2007 08/06/2017 Varicose veins of lower extremities with other c omplications 02/20/2007 08/06/2017 Anemia, unspecified 04/14/2016 Overview: due to heavy menstrual cycles SMOKER 09/11/2014 documented as of this encounter (statuses as of 08/29/2022) [facility]01[facility]2018 History of Past illness Narrative* Problem Noted Date Resolved Date Primary osteoarthritis of right knee 07/31/2017 08/23/2017 Overview: Added automatically from request for surgery [id number] Counseling and coordination of care 12/02/2014 02/26/2015 Thickened endometrium 09/12/2011 09/11/2013 Abnormal uterine bleeding 09/12/20112013 Pain in joint, lower leg 08/10/2011 018 Arthrofibrosis of total knee arthroplasty, subsequent encounter 07/14/2011 11/19/2017 Esophagitis, unspecified 01/14/2010 018 Menorrhagia 12/27/2009 08/18/2011 Onychia and paronychia of toe 06/22/2008 Ingrowing nail 05/14/2008 08/06/2017 Other plastic surgery for unacceptable cosmetic appearance 08/21/2007 08/06/2017 Varicose veins of lower extremities with other c omplications 02/20/2007 08/06/2017 Anemia, unspecified 04/14/2016 Overview: due to heavy menstrual cycles SMOKER 09/11/2014 documented as of this encounter (statuses as of 09/01/2022) [facility]01[facility]2018 History of Past illness Narrative* Problem Noted Date Resolved Date Primary osteoarthritis of right knee 07/31/2017 08/23/2017 Overview: Added automatically from request for surgery [id number] Counseling and coordination of care 12/02/2014 02/26/2015 Thickened endometrium 09/12/2011 09/11/2013 Abnormal uterine bleeding 09/12/20112013 Pain in joint, lower leg 08/10/2011 018 Arthrofibrosis of total knee arthroplasty, subsequent encounter 07/14/2011 11/19/2017 Esophagitis, unspecified 01/14/2010 018 Menorrhagia 12/27/2009 08/18/2011 Onychia and paronychia of toe 06/22/2008 Ingrowing nail 05/14/2008 08/06/2017 Other plastic surgery for unacceptable cosmetic appearance 08/21/2007 08/06/2017 Varicose veins of lower extremities with other c omplications 02/20/2007 08/06/2017 Anemia, unspecified 04/14/2016 Overview: due to heavy menstrual cycles SMOKER 09/11/2014 documented as of this encounter (statuses as of 09/05/2022) [facility]01[facility]2018 History of Past illness Narrative* Problem Noted Date Resolved Date Primary osteoarthritis of right knee 07/31/2017 08/23/2017 Overview: Added automatically from request for surgery [id number] Counseling and coordination of care 12/02/2014 02/26/2015 Thickened endometrium 09/12/2011 09/11/2013 Abnormal uterine bleeding 09/12/20112013 Pain in joint, lower leg 08/10/2011 018 Arthrofibrosis of total knee arthroplasty, subsequent encounter 07/14/2011 11/19/2017 Esophagitis, unspecified 01/14/2010 018 Menorrhagia 12/27/2009 08/18/2011 Onychia and paronychia of toe 06/22/2008 Ingrowing nail 05/14/2008 08/06/2017 Other plastic surgery for unacceptable cosmetic appearance 08/21/2007 08/06/2017 Varicose veins of lower extremities with other c omplications 02/20/2007 08/06/2017 Anemia, unspecified 04/14/2016 Overview: due to heavy menstrual cycles SMOKER 09/11/2014 documented as of this encounter (statuses as of 09/05/2022) [facility]01[facility]2018 History of Past illness Narrative* Problem Noted Date Resolved Date Primary osteoarthritis of right knee 07/31/2017 08/23/2017 Overview: Added automatically from request for surgery [id number] Counseling and coordination of care 12/02/2014 02/26/2015 Thickened endometrium 09/12/2011 09/11/2013 Abnormal uterine bleeding 09/12/20112013 Pain in joint, lower leg 08/10/2011 018 Arthrofibrosis of total knee arthroplasty, subsequent encounter 07/14/2011 11/19/2017 Esophagitis, unspecified 01/14/2010 018 Menorrhagia 12/27/2009 08/18/2011 Onychia and paronychia of toe 06/22/2008 Ingrowing nail 05/14/2008 08/06/2017 Other plastic surgery for unacceptable cosmetic appearance 08/21/2007 08/06/2017 Varicose veins of lower extremities with other c omplications 02/20/2007 08/06/2017 Anemia, unspecified 04/14/2016 Overview: due to heavy menstrual cycles SMOKER 09/11/2014 documented as of this encounter (statuses as of 10/02/2022) [facility]01[facility] History of Past illness Narrative* Problem Noted Date Resolved Date Primary osteoarthritis of right knee 07/31/2017 08/23/2017 Overview: Added automatically from request for surgery [id number] Counseling and coordination of care 12/02/2014 02/26/2015 Thickened endometrium 09/12/2011 09/11/2013 Abnormal uterine bleeding 09/12/20112013 Pain in joint, lower leg 08/10/2011 018 Arthrofibrosis of total knee arthroplasty, subsequent encounter 07/14/2011 11/19/2017 Esophagitis, unspecified 01/14/2010 018 Menorrhagia 12/27/2009 08/18/2011 Onychia and paronychia of toe 06/22/2008 Ingrowing nail 05/14/2008 08/06/2017 Other plastic surgery for unacceptable cosmetic appearance 08/21/2007 08/06/2017 Varicose veins of lower extremities with other c omplications 02/20/2007 08/06/2017 Anemia, unspecified 04/14/2016 Overview: due to heavy menstrual cycles SMOKER 09/11/2014 documented as of this encounter (statuses as of 10/02/2022) [facility] History of Past illness Narrative* Problem Noted Date Resolved Date Primary osteoarthritis of right knee 07/31/2017 08/23/2017 Overview: Added automatically from request for surgery [id number] Counseling and coordination of care 12/02/2014 02/26/2015 Thickened endometrium 09/12/2011 09/11/2013 Abnormal uterine bleeding 09/12/20112013 Pain in joint, lower leg 08/10/2011 018 Arthrofibrosis of total knee arthroplasty, subsequent encounter 07/14/2011 11/19/2017 Esophagitis, unspecified 01/14/2010 018 Menorrhagia 12/27/2009 08/18/2011 Onychia and paronychia of toe 06/22/2008 Ingrowing nail 05/14/2008 08/06/2017 Other plastic surgery for unacceptable cosmetic appearance 08/21/2007 08/06/2017 Varicose veins of lower extremities with other c omplications 02/20/2007 08/06/2017 Anemia, unspecified 04/14/2016 Overview: due to heavy menstrual cycles SMOKER 09/11/2014 documented as of this encounter (statuses as of 10/04/2022) [facility] History of Past illness Narrative* Problem Noted Date Resolved Date Primary osteoarthritis of right knee 07/31/2017 08/23/2017 Overview: Added automatically from request for surgery [id number] Counseling and coordination of care 12/02/2014 02/26/2015 Thickened endometrium 09/12/2011 09/11/2013 Abnormal uterine bleeding 09/12/20112013 Pain in joint, lower leg 08/10/2011 018 Arthrofibrosis of total knee arthroplasty, subsequent encounter 07/14/2011 11/19/2017 Esophagitis, unspecified 01/14/2010 018 Menorrhagia 12/27/2009 08/18/2011 Onychia and paronychia of toe 06/22/2008 Ingrowing nail 05/14/2008 08/06/2017 Other plastic surgery for unacceptable cosmetic appearance 08/21/2007 08/06/2017 Varicose veins of lower extremities with other c omplications 02/20/2007 08/06/2017 Anemia, unspecified 04/14/2016 Overview: due to heavy menstrual cycles SMOKER 09/11/2014 documented as of this encounter (statuses as of 10/20/2022) [facility] History of Past illness Narrative* Problem Noted Date Resolved Date Primary osteoarthritis of right knee 07/31/2017 08/23/2017 Overview: Added automatically from request for surgery [id number] Counseling and coordination of care 12/02/2014 02/26/2015 Thickened endometrium 09/12/2011 09/11/2013 Abnormal uterine bleeding 09/12/20112013 Pain in joint, lower leg 08/10/2011 018 Arthrofibrosis of total knee arthroplasty, subsequent encounter 07/14/2011 11/19/2017 Esophagitis, unspecified 01/14/2010 018 Menorrhagia 12/27/2009 08/18/2011 Onychia and paronychia of toe 06/22/2008 Ingrowing nail 05/14/2008 08/06/2017 Other plastic surgery for unacceptable cosmetic appearance 08/21/2007 08/06/2017 Varicose veins of lower extremities with other c omplications 02/20/2007 08/06/2017 Anemia, unspecified 04/14/2016 Overview: due to heavy menstrual cycles SMOKER 09/11/2014 documented as of this encounter (statuses as of 10/30/2022) [facility] History of Past illness Narrative* Problem Noted Date Resolved Date Primary osteoarthritis of right knee 07/31/2017 08/23/2017 Overview: Added automatically from request for surgery [id number] Counseling and coordination of care 12/02/2014 02/26/2015 Thickened endometrium 09/12/2011 09/11/2013 Abnormal uterine bleeding 09/12/20112013 Pain in joint, lower leg 08/10/2011 018 Arthrofibrosis of total knee arthroplasty, subsequent encounter 07/14/2011 11/19/2017 Esophagitis, unspecified 01/14/2010 018 Menorrhagia 12/27/2009 08/18/2011 Onychia and paronychia of toe 06/22/2008 Ingrowing nail 05/14/2008 08/06/2017 Other plastic surgery for unacceptable cosmetic appearance 08/21/2007 08/06/2017 Varicose veins of lower extremities with other c omplications 02/20/2007 08/06/2017 Anemia, unspecified 04/14/2016 Overview: due to heavy menstrual cycles SMOKER 09/11/2014 documented as of this encounter (statuses as of 11/02/2022) [facility] History of Past illness Narrative* Problem Noted Date Resolved Date Primary osteoarthritis of right knee 07/31/2017 08/23/2017 Overview: Added automatically from request for surgery [id number] Counseling and coordination of care 12/02/2014 02/26/2015 Thickened endometrium 09/12/2011 09/11/2013 Abnormal uterine bleeding 09/12/20112013 Pain in joint, lower leg 08/10/2011 018 Arthrofibrosis of total knee arthroplasty, subsequent encounter 07/14/2011 11/19/2017 Esophagitis, unspecified 01/14/2010 018 Menorrhagia 12/27/2009 08/18/2011 Onychia and paronychia of toe 06/22/2008 Ingrowing nail 05/14/2008 08/06/2017 Other plastic surgery for unacceptable cosmetic appearance 08/21/2007 08/06/2017 Varicose veins of lower extremities with other c omplications 02/20/2007 08/06/2017 Anemia, unspecified 04/14/2016 Overview: due to heavy menstrual cycles SMOKER 09/11/2014 documented as of this encounter (statuses as of 11/07/2022) [facility] History of Past illness Narrative* Problem Noted Date Resolved Date Primary osteoarthritis of right knee 07/31/2017 08/23/2017 Overview: Added automatically from request for surgery [id number] Counseling and coordination of care 12/02/2014 02/26/2015 Thickened endometrium 09/12/2011 09/11/2013 Abnormal uterine bleeding 09/12/20112013 Pain in joint, lower leg 08/10/2011 018 Arthrofibrosis of total knee arthroplasty, subsequent encounter 07/14/2011 11/19/2017 Esophagitis, unspecified 01/14/2010 018 Menorrhagia 12/27/2009 08/18/2011 Onychia and paronychia of toe 06/22/2008 Ingrowing nail 05/14/2008 08/06/2017 Other plastic surgery for unacceptable cosmetic appearance 08/21/2007 08/06/2017 Varicose veins of lower extremities with other c omplications 02/20/2007 08/06/2017 Anemia, unspecified 04/14/2016 Overview: due to heavy menstrual cycles SMOKER 09/11/2014 documented as of this encounter (statuses as of 11/09/2022) [facility]01-23-2018 History of Past illness Narrative* Problem Noted Date Resolved Date Primary osteoarthritis of right knee 07/31/2017 08/23/2017 Overview: Added automatically from request for surgery [id number] Counseling and coordination of care 12/02/2014 02/26/2015 Thickened endometrium 09/12/2011 09/11/2013 Abnormal uterine bleeding 09/12/20112013 Pain in joint, lower leg 08/10/2011 018 Arthrofibrosis of total knee arthroplasty, subsequent encounter 07/14/2011 11/19/2017 Esophagitis, unspecified 01/14/2010 018 Menorrhagia 12/27/2009 08/18/2011 Onychia and paronychia of toe 06/22/2008 Ingrowing nail 05/14/2008 08/06/2017 Other plastic surgery for unacceptable cosmetic appearance 08/21/2007 08/06/2017 Varicose veins of lower extremities with other c omplications 02/20/2007 08/06/2017 Anemia, unspecified 04/14/2016 Overview: due to heavy menstrual cycles SMOKER 09/11/2014 documented as of this encounter (statuses as of 12/14/2022) [facility]01-23-2018 History of Past illness Narrative* Problem Noted Date Resolved Date Primary osteoarthritis of right knee 07/31/2017 08/23/2017 Overview: Added automatically from request for surgery [id number] Counseling and coordination of care 12/02/2014 02/26/2015 Thickened endometrium 09/12/2011 09/11/2013 Abnormal uterine bleeding 09/12/20112013 Pain in joint, lower leg 08/10/2011 018 Arthrofibrosis of total knee arthroplasty, subsequent encounter 07/14/2011 11/19/2017 Esophagitis, unspecified 01/14/2010 018 Menorrhagia 12/27/2009 08/18/2011 Onychia and paronychia of toe 06/22/2008 Ingrowing nail 05/14/2008 08/06/2017 Other plastic surgery for unacceptable cosmetic appearance 08/21/2007 08/06/2017 Varicose veins of lower extremities with other c omplications 02/20/2007 08/06/2017 Anemia, unspecified 04/14/2016 Overview: due to heavy menstrual cycles SMOKER 09/11/2014 documented as of this encounter (statuses as of 12/22/2022) [facility]01-[facility]-2018 History of Past illness Narrative* Problem Noted Date Resolved Date Primary osteoarthritis of right knee 07/31/2017 08/23/2017 Overview: Added automatically from request for surgery [id number] Counseling and coordination of care 12/02/2014 02/26/2015 Thickened endometrium 09/12/2011 09/11/2013 Abnormal uterine bleeding 09/12/20112013 Pain in joint, lower leg 08/10/2011 018 Arthrofibrosis of total knee arthroplasty, subsequent encounter 07/14/2011 11/19/2017 Esophagitis, unspecified 01/14/2010 018 Menorrhagia 12/27/2009 08/18/2011 Onychia and paronychia of toe 06/22/2008 Ingrowing nail 05/14/2008 08/06/2017 Other plastic surgery for unacceptable cosmetic appearance 08/21/2007 08/06/2017 Varicose veins of lower extremities with other c omplications 02/20/2007 08/06/2017 Anemia, unspecified 04/14/2016 Overview: due to heavy menstrual cycles SMOKER 09/11/2014 documented as of this encounter (statuses as of 01/05/2023) [facility]01[facility]2018 History of Past illness Narrative* Problem Noted Date Resolved Date Primary osteoarthritis of right knee 07/31/2017 08/23/2017 Overview: Added automatically from request for surgery [id number] Counseling and coordination of care 12/02/2014 02/26/2015 Thickened endometrium 09/12/2011 09/11/2013 Abnormal uterine bleeding 09/12/20112013 Pain in joint, lower leg 08/10/2011 018 Arthrofibrosis of total knee arthroplasty, subsequent encounter 07/14/2011 11/19/2017 Esophagitis, unspecified 01/14/2010 018 Menorrhagia 12/27/2009 08/18/2011 Onychia and paronychia of toe 06/22/2008 Ingrowing nail 05/14/2008 08/06/2017 Other plastic surgery for unacceptable cosmetic appearance 08/21/2007 08/06/2017 Varicose veins of lower extremities with other c omplications 02/20/2007 08/06/2017 Anemia, unspecified 04/14/2016 Overview: due to heavy menstrual cycles SMOKER 09/11/2014 documented as of this encounter (statuses as of 01/05/2023) [facility]01[facility]2018 History of Past illness Narrative* Problem Noted Date Diagnosed Date Resolved Date Primary osteoarthritis of right knee 07/31/2017 08/23/2017 Overview: Added automatically from request for surgery [id number] Counseling and coordination of care 12/02/2014 02/26/2015 Thickened endometrium 09/12/20112013 Abnormal uterine bleeding 09/12/2011 Pain in joint, lower leg 08/10/2011 Arthrofibrosis of total knee arthroplasty, subsequent encounter 07/14/2011 11/19/2017 Esophagitis, unspecified 01/14/2010 Menorrhagia 12/27/2009 08/18/2011 Onychia and paronychia of toe 06/22/2008 08/06/2017 Ingrowing nail 05/14/2008 08/06/2017 Other plastic surgery for un acceptable cosmetic appearance 08/21/2007 08/06/2017 Varicose veins of lower extr emities with other complications 02/20/2007 08/06/2017 Anemia, unspecified 04/14/20 16 Overview: due to heavy menstrual cycles SMOKER 09/11/2014 documented as of this encounter (statuses as of 03/25/2023) [facility]01[facility]2018 History of Past illness Narrative* Problem Noted Date Diagnosed Date Resolved Date Primary osteoarthritis of right knee 07/31/2017 08/23/2017 Overview: Added automatically from request for surgery [id number] Counseling and coordination of care 12/02/2014 02/26/2015 Thickened endometrium 09/12/20112013 Abnormal uterine bleeding 09/12/2011 Pain in joint, lower leg 08/10/2011 Arthrofibrosis of total knee arthroplasty, subsequent encounter 07/14/2011 11/19/2017 Esophagitis, unspecified 01/14/2010 Menorrhagia 12/27/2009 08/18/2011 Onychia and paronychia of toe 06/22/2008 08/06/2017 Ingrowing nail 05/14/2008 08/06/2017 Other plastic surgery for un acceptable cosmetic appearance 08/21/2007 08/06/2017 Varicose veins of lower extr emities with other complications 02/20/2007 08/06/2017 Anemia, unspecified 04/14/20 16 Overview: due to heavy menstrual cycles SMOKER 09/11/2014 documented as of this encounter (statuses as of 03/29/2023) [facility]01[facility]2018 History of Past illness Narrative* Problem Noted Date Diagnosed Date Resolved Date Primary osteoarthritis of right knee 07/31/2017 08/23/2017 Overview: Added automatically from request for surgery [id number] Counseling and coordination of care 12/02/2014 02/26/2015 Thickened endometrium 09/12/20112013 Abnormal uterine bleeding 09/12/2011 Pain in joint, lower leg 08/10/2011 Arthrofibrosis of total knee arthroplasty, subsequent encounter 07/14/2011 11/19/2017 Esophagitis, unspecified 01/14/2010 Menorrhagia 12/27/2009 08/18/2011 Onychia and paronychia of toe 06/22/2008 08/06/2017 Ingrowing nail 05/14/2008 08/06/2017 Other plastic surgery for un acceptable cosmetic appearance 08/21/2007 08/06/2017 Varicose veins of lower extr emities with other complications 02/20/2007 08/06/2017 Anemia, unspecified 04/14/20 16 Overview: due to heavy menstrual cycles SMOKER 09/11/2014 documented as of this encounter (statuses as of 04/23/2023) [facility]01[facility]2018 History of Past illness Narrative* Problem Noted Date Diagnosed Date Resolved Date Primary osteoarthritis of right knee 07/31/2017 08/23/2017 Overview: Added automatically from request for surgery [id number] Counseling and coordination of care 12/02/2014 02/26/2015 Thickened endometrium 09/12/20112013 Abnormal uterine bleeding 09/12/2011 Pain in joint, lower leg 08/10/2011 Arthrofibrosis of total knee arthroplasty, subsequent encounter 07/14/2011 11/19/2017 Esophagitis, unspecified 01/14/2010 Menorrhagia 12/27/2009 08/18/2011 Onychia and paronychia of toe 06/22/2008 08/06/2017 Ingrowing nail 05/14/2008 08/06/2017 Other plastic surgery for un acceptable cosmetic appearance 08/21/2007 08/06/2017 Varicose veins of lower extr emities with other complications 02/20/2007 08/06/2017 Anemia, unspecified 04/14/20 16 Overview: due to heavy menstrual cycles SMOKER 09/11/2014 documented as of this encounter (statuses as of 05/13/2023) [facility]01[facility]2018 History of Past illness Narrative* Problem Noted Date Diagnosed Date Resolved Date Primary osteoarthritis of right knee 07/31/2017 08/23/2017 Overview: Added automatically from request for surgery [id number] Counseling and coordination of care 12/02/2014 02/26/2015 Thickened endometrium 09/12/20112013 Abnormal uterine bleeding 09/12/2011 Pain in joint, lower leg 08/10/2011 Arthrofibrosis of total knee arthroplasty, subsequent encounter 07/14/2011 11/19/2017 Esophagitis, unspecified 01/14/2010 Menorrhagia 12/27/2009 08/18/2011 Onychia and paronychia of toe 06/22/2008 08/06/2017 Ingrowing nail 05/14/2008 08/06/2017 Other plastic surgery for un acceptable cosmetic appearance 08/21/2007 08/06/2017 Varicose veins of lower extr emities with other complications 02/20/2007 08/06/2017 Anemia, unspecified 04/14/20 16 Overview: due to heavy menstrual cycles SMOKER 09/11/2014 documented as of this encounter (statuses as of 05/16/2023) [facility]01[facility]2018 History of Past illness Narrative* Problem Noted Date Diagnosed Date Resolved Date Primary osteoarthritis of right knee 07/31/2017 08/23/2017 Overview: Added automatically from request for surgery [id number] Counseling and coordination of care 12/02/2014 02/26/2015 Thickened endometrium 09/12/20112013 Abnormal uterine bleeding 09/12/2011 Pain in joint, lower leg 08/10/2011 Arthrofibrosis of total knee arthroplasty, subsequent encounter 07/14/2011 11/19/2017 Esophagitis, unspecified 01/14/2010 Menorrhagia 12/27/2009 08/18/2011 Onychia and paronychia of toe 06/22/2008 08/06/2017 Ingrowing nail 05/14/2008 08/06/2017 Other plastic surgery for un acceptable cosmetic appearance 08/21/2007 08/06/2017 Varicose veins of lower extr emities with other complications 02/20/2007 08/06/2017 Anemia, unspecified 04/14/20 16 Overview: due to heavy menstrual cycles SMOKER 09/11/2014 documented as of this encounter (statuses as of 05/23/2023) [facility]01[facility]2018 History of Past illness Narrative* Problem Noted Date Diagnosed Date Resolved Date Primary osteoarthritis of right knee 07/31/2017 08/23/2017 Overview: Added automatically from request for surgery [id number] Counseling and coordination of care 12/02/2014 02/26/2015 Thickened endometrium 09/12/20112013 Abnormal uterine bleeding 09/12/2011 Pain in joint, lower leg 08/10/2011 Arthrofibrosis of total knee arthroplasty, subsequent encounter 07/14/2011 11/19/2017 Esophagitis, unspecified 01/14/2010 Menorrhagia 12/27/2009 08/18/2011 Onychia and paronychia of toe 06/22/2008 08/06/2017 Ingrowing nail 05/14/2008 08/06/2017 Other plastic surgery for un acceptable cosmetic appearance 08/21/2007 08/06/2017 Varicose veins of lower extr emities with other complications 02/20/2007 08/06/2017 Anemia, unspecified 04/14/20 16 Overview: due to heavy menstrual cycles SMOKER 09/11/2014 documented as of this encounter (statuses as of 05/24/2023) [facility]01[facility]2018 History of Past illness Narrative* Problem Noted Date Diagnosed Date Resolved Date Primary osteoarthritis of right knee 07/31/2017 08/23/2017 Overview: Added automatically from request for surgery [id number] Counseling and coordination of care 12/02/2014 02/26/2015 Thickened endometrium 09/12/20112013 Abnormal uterine bleeding 09/12/2011 Pain in joint, lower leg 08/10/2011 Arthrofibrosis of total knee arthroplasty, subsequent encounter 07/14/2011 11/19/2017 Esophagitis, unspecified 01/14/2010 Menorrhagia 12/27/2009 08/18/2011 Onychia and paronychia of toe 06/22/2008 08/06/2017 Ingrowing nail 05/14/2008 08/06/2017 Other plastic surgery for un acceptable cosmetic appearance 08/21/2007 08/06/2017 Varicose veins of lower extr emities with other complications 02/20/2007 08/06/2017 Anemia, unspecified 04/14/20 16 Overview: due to heavy menstrual cycles SMOKER 09/11/2014 documented as of this encounter (statuses as of 05/25/2023) [facility]01[facility]2018 History of Past illness Narrative* Problem Noted Date Diagnosed Date Resolved Date Primary osteoarthritis of right knee 07/31/2017 08/23/2017 Overview: Added automatically from request for surgery [id number] Counseling and coordination of care 12/02/2014 02/26/2015 Thickened endometrium 09/12/20112013 Abnormal uterine bleeding 09/12/2011 Pain in joint, lower leg 08/10/2011 Arthrofibrosis of total knee arthroplasty, subsequent encounter 07/14/2011 11/19/2017 Esophagitis, unspecified 01/14/2010 Menorrhagia 12/27/2009 08/18/2011 Onychia and paronychia of toe 06/22/2008 08/06/2017 Ingrowing nail 05/14/2008 08/06/2017 Other plastic surgery for un acceptable cosmetic appearance 08/21/2007 08/06/2017 Varicose veins of lower extr emities with other complications 02/20/2007 08/06/2017 Anemia, unspecified 04/14/20 16 Overview: due to heavy menstrual cycles SMOKER 09/11/2014 documented as of this encounter (statuses as of 06/02/2023) [facility]01[facility]2018 History of Past illness Narrative* Problem Noted Date Diagnosed Date Resolved Date Primary osteoarthritis of right knee 07/31/2017 08/23/2017 Overview: Added automatically from request for surgery [id number] Counseling and coordination of care 12/02/2014 02/26/2015 Thickened endometrium 09/12/20112013 Abnormal uterine bleeding 09/12/2011 Pain in joint, lower leg 08/10/2011 Arthrofibrosis of total knee arthroplasty, subsequent encounter 07/14/2011 11/19/2017 Esophagitis, unspecified 01/14/2010 Menorrhagia 12/27/2009 08/18/2011 Onychia and paronychia of toe 06/22/2008 08/06/2017 Ingrowing nail 05/14/2008 08/06/2017 Other plastic surgery for un acceptable cosmetic appearance 08/21/2007 08/06/2017 Varicose veins of lower extr emities with other complications 02/20/2007 08/06/2017 Anemia, unspecified 04/14/20 16 Overview: due to heavy menstrual cycles SMOKER 09/11/2014 documented as of this encounter (statuses as of 08/29/2023) [facility]01[facility]2018 History of Past illness Narrative* Problem Noted Date Diagnosed Date Resolved Date Primary osteoarthritis of right knee 07/31/2017 08/23/2017 Overview: Added automatically from request for surgery [id number] Counseling and coordination of care 12/02/2014 02/26/2015 Thickened endometrium 09/12/20112013 Abnormal uterine bleeding 09/12/2011 Pain in joint, lower leg 08/10/2011 Arthrofibrosis of total knee arthroplasty, subsequent encounter 07/14/2011 11/19/2017 Esophagitis, unspecified 01/14/2010 Menorrhagia 12/27/2009 08/18/2011 Onychia and paronychia of toe 06/22/2008 08/06/2017 Ingrowing nail 05/14/2008 08/06/2017 Other plastic surgery for un acceptable cosmetic appearance 08/21/2007 08/06/2017 Varicose veins of lower extr emities with other complications 02/20/2007 08/06/2017 Anemia, unspecified 04/14/20 16 Overview: due to heavy menstrual cycles SMOKER 09/11/2014 documented as of this encounter (statuses as of 08/29/2023) [facility]01[facility]2018 History of Past illness Narrative* Problem Noted Date Diagnosed Date Resolved Date Primary osteoarthritis of right knee 07/31/2017 08/23/2017 Overview: Added automatically from request for surgery [id number] Counseling and coordination of care 12/02/2014 02/26/2015 Thickened endometrium 09/12/20112013 Abnormal uterine bleeding 09/12/2011 Pain in joint, lower leg 08/10/2011 Arthrofibrosis of total knee arthroplasty, subsequent encounter 07/14/2011 11/19/2017 Esophagitis, unspecified 01/14/2010 Menorrhagia 12/27/2009 08/18/2011 Onychia and paronychia of toe 06/22/2008 08/06/2017 Ingrowing nail 05/14/2008 08/06/2017 Other plastic surgery for un acceptable cosmetic appearance 08/21/2007 08/06/2017 Varicose veins of lower extr emities with other complications 02/20/2007 08/06/2017 Anemia, unspecified 04/14/20 16 Overview: due to heavy menstrual cycles SMOKER 09/11/2014 documented as of this encounter (statuses as of 09/24/2023) [facility]01[facility]2018 History of Past illness Narrative* Problem Noted Date Diagnosed Date Resolved Date Primary osteoarthritis of right knee 07/31/2017 08/23/2017 Overview: Added automatically from request for surgery [id number] Counseling and coordination of care 12/02/2014 02/26/2015 Thickened endometrium 09/12/20112013 Abnormal uterine bleeding 09/12/2011 Pain in joint, lower leg 08/10/2011 Arthrofibrosis of total knee arthroplasty, subsequent encounter 07/14/2011 11/19/2017 Esophagitis, unspecified 01/14/2010 Menorrhagia 12/27/2009 08/18/2011 Onychia and paronychia of toe 06/22/2008 08/06/2017 Ingrowing nail 05/14/2008 08/06/2017 Other plastic surgery for un acceptable cosmetic appearance 08/21/2007 08/06/2017 Varicose veins of lower extr emities with other complications 02/20/2007 08/06/2017 Anemia, unspecified 04/14/20 16 Overview: due to heavy menstrual cycles SMOKER 09/11/2014 documented as of this encounter (statuses as of 10/19/2023) [facility] History of Past illness Narrative* Problem Noted Date Diagnosed Date Resolved Date Primary osteoarthritis of right knee 07/31/2017 08/23/2017 Overview: Added automatically from request for surgery [id number] Counseling and coordination of care 12/02/2014 02/26/2015 Thickened endometrium 09/12/20112013 Abnormal uterine bleeding 09/12/2011 Pain in joint, lower leg 08/10/2011 Arthrofibrosis of total knee arthroplasty, subsequent encounter 07/14/2011 11/19/2017 Esophagitis, unspecified 01/14/2010 Menorrhagia 12/27/2009 08/18/2011 Onychia and paronychia of toe 06/22/2008 08/06/2017 Ingrowing nail 05/14/2008 08/06/2017 Other plastic surgery for un acceptable cosmetic appearance 08/21/2007 08/06/2017 Varicose veins of lower extr emities with other complications 02/20/2007 08/06/2017 Anemia, unspecified 04/14/20 16 Overview: due to heavy menstrual cycles SMOKER 09/11/2014 documented as of this encounter (statuses as of 10/29/2023) [facility] Author Freddy Henning [facility] Note Date/Time September 29, 2024 11: 12am [facility] Medical Records Department [address] [place] [address] Pre-Anesthesia Evaluation 09/29/24 1104 MR#: [id number] Acct: [id number] Name: REID THAKURYESSI Ventura Rep #:[id number] : 1960 64 From: Freddy Henning MD PCP: Dr. Gabbie Grady MD Status:RE G SDC Y Race: C Location: [place] [address] ASA Classification* ASA Classification ASA Classification: 3 Assessment & Plan Anesthesia* Anesthesia Assessment Anesthesia Assessment: Discussed sedation and/or anesthesia options, risks, benefits, and alternatives with patient/parents/legal guardian/POA. Questions invited. The patient/parents/legal guardian/POA seems to understand and agrees to proceedwith anesthesia plan. Reviewed the physical assessment, medical history, allergy history and patient home medications list prior to surgery/procedure/anesthetic and documented any changes. Performed airway and anesthesia risk assessments. Anesthesia Type Anesthesia Type: MAC History Source History Obtained from:: Patient and Chart Anesthesia Focused Assessment* Temperature: 97.3 F Pulse Rate: 71 Blood Pressure: 146/84 Respiratory Rate: 16 Pulse Ox: 100 Oxygen Delivery Method: Room Air Airway Assessment Mouth opens: >3 cm Mallampati Score: III Teeth Condition: Dentures (Patient has full upper and lower dentures.) Neck Range of motion (ROM): Limited ROM (Somewhat decreased extension) Focused Labs Anesthesia Preop lab: CBC WBC 11.5 K/mm3 (4.4-11.0) H 09/15/21 15:07 2 RBC 4.98 M/mm3 (4.2-5.4) 09/15/21 15:07 09/15/21 Hgb 14.0 g/dL (12.0-15.0) 09/15/21 15:07 09/15/21 Hct 43.4 % (37-47) 09/15/21 15:07 09/15/21 Plt Count 282 K/mm3 (150-450) 09/15/21 15:07 09/15/21 CHEMISTRY Potassium 4.3 mmol/L (3.5-5.1) 09/15/21 15:07 09/15/21 Sodium 137 mmol/L (136-145) 09/15/21 15:07 09/15/21 BUN 23 mg/dL (7-18) H 09/15/21 15:07 09/15/21 Creatinine 1.12 mg/dL (0.55-1.02) H 09/15/21 15:07 Glucose 138 mg/dL (74-106) H 09/15/21 15:07 09/15/21 POC Glucose 137 mg/dL (74-106) H 09/29/24 10:29 09/29/24 COAG Pre-Assessment Diagnosis/Proposed Procedure Planned Operative Procedure(s): Colonoscopy Anesthesia History Anesthesia History - administrative court justice: Anesthesia History - administrative court justice Hx Hospitalization No 08/01/21 09:17 Any Problems With Anesthesia No 08/01/21 09:17 Cholinesterase deficiency No 08/01/21 09:17 You/Your Family Experience No 08/01/21 09:17 fever (hyperthermia) with Relationship Recent Exposure to Contagious No 09/29/24 10:18 Disease Does patient have nerve No 08/01/21 09:17 stimulator Patient instructed to have device shut off --Does patient have Pacemaker No 09/29/24 10:18 or ICD? When Was Last Pacemaker Check QUESTION #4 FULL TEXT: You/Your Family Experience fever (hyperthermia) with Anesthesia Last Oral Intake Last Oral intake: Last Oral Intake NPO since 06:00 09/29/24 10:18 Meds taken in AM with sips of Yes 09/29/24 10:18 water? Meds patient instructed to take am of surgery Any additional information?: Yes NPO since: 06:30 (Patient finished prep at 6:30AM.) Meds taken in AM with sips of water?: Yes PONV PONV - administrative court justice: PONV - administrative court justice Female HX of Motion Sickness HX of N/V After Surgery Non-Smoker Duration of Surgery greater than 60 minutes Number of Risk Factors PONV Score Height & Weight Height & Weight: Anesthesia: Height & Weight Height 5 ft 6 in 09/29/24 10:18 Weight: 85 kg 09/29/24 10:18 Body Mass Index (BMI) 30.2 09/29/24 10:18 Respiratory Assessment Respiratory Assessment - administrative court justice: Respiratory Tract Infection Hx - administrative court justice Hx Respiratory Tract Infection No 08/01/21 09:17 Any additional information?: Yes Hx Respiratory Tract Infection: Yes (Patient had a recent chest cold. Still recovering.) STOP Sleep Apnea STOP Sleep Apnea - administrative court justice: STOP Sleep Apnea - administrative court justice Hx Hypertension Yes: CONTROLLED WITH MEDS 08/01/21 09:17 Hx Sleep Apnea No 08/01/21 09:17 CPAP BIPAP Do you snore loudly (louder than talking or can be heard Do you often feel tired/ fatigued/ sleepy during daytime? Has anyone observed you stop breathing during sleep? STOP Results QUESTION #5 FULL TEXT : Do you snore loudly (louder than talking or can be heard through closed doors)? 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 Specify any problems Hx of Preganancy in last 3 Months Nurse Filling Out Transfusion & Questions: Date: Time: Patient unable to answer at this time (ie. 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 court justice: /Reproductive Hx- administrative court justice Hx Now Gestational Age (in weeks): EDC: Hx Hx Para Hx Section SAB No 08/01/21 09:17 PFSH Medical History Fibromuscular dysplasia GCA (giant cell arteritis) Type 2 diabetes mellitus Wears glasses Wears dentures Depression Anxiety Alcohol use Abrasion History of steroid therapy Diabetes Arthritis History of renal disease Hx of temporal arteritis Anemia Fatty liver Easy bruising Restless legs Back pain Migraine headache History of fibromuscular dysplasia Syncope Dietary restriction History of diverticulosis Former smoker Shortness of breath on exertion Leg cramps History of edema History of stress test Cardiology follow-up encounter History of irregular heartbeat Chest pain Hx of flexible sigmoidoscopy History of use of contraceptive intrauterine device (IUD) Heart palpitations Fibromuscular dysplasia of renal artery Controlled type 2 diabetes mellitus DRUJ (distal radioulnar joint) arthrosis, 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, thumb, degenerative Pain in joint, hand Chondromalacia of patella Dizziness and giddiness Cervicalgia Benign neoplasm of colon Edema Fibromyalgia Obesity Osteoarthrosis Esophageal reflux Hyperlipidemia HTN (hypertension) uterine ablation Rectocele Home Medications ?Medication ?Instructions ?Recorded ?Last Taken ?Type albuterol sulfate 90 mcg/actuation 2 puff inhalation Q 6H PRN SOB 07/30/20 Unknown History aerosol inhaler amlodipine 5 mg tablet 5 mg PO QHS 07/30/20 5 History aspirin 81 mg tablet,delayed 81 mg PO DAILY 07/30/20 0 09/25/24 History release (Adult Low Dose Aspirin) benzonatate 100 mg capsule 100 mg PO PRN PRN Cough Unknown History coenzyme Q10 75 mg capsule (Ultra 200 mg PO DAILY 07/10 08/29 Unknown History CoQ10) hydrochlorothiazide 50 mg tablet 25 mg PO DAILY 09/29/24 06:30 History lisinopril 20 mg tablet 40 mg PO DAILY 07/30/2009/07 06:30 History loratadine 10 mg capsule 10 mg PO DAILY PRN ALLERGIES 07/30/20 Unknown History methocarbamol 500 mg tablet 1,000 mg PO PRN PRN MUSCLE SPASMS 07/30/20 Unknown History nadolol 80 mg tablet 40 tab PO BID 07/30/2009/29 06:30 History nystatin 100,000 unit/gram topical 1 applic topical DA FIDEL PRN Skin 07/30/20 Unknown History powder Cleansing calcium carb-ergocalciferol (vit 1 tab PO DAILY Unknown History D2) 600 mg calcium-200 unit tablet omeprazole 20 mg tablet,delayed 20 mg PO DAILY 2 09/28/24 History release Bacillus coagulans-Bacillus 1 tab PO DAILY #90 tabs Unknown Rx subtilis 1 billion cell chewable tablet (up4 Probiotics-Mind and Body) ibuprofen 600 mg tablet 800 mg PO PRN PRN Pain 09/1509/28/24 History metformin 500 mg tablet,extended 500 mg PO DAILY 09/1509/27/24 History release 24hr (osmotic) vitamin B complex (B 1 tab PO DAILY 09/15/21 Unkn own History Complex-Vitamin B12 tablet) phytonadione (vitamin K1) 100 mcg 100 mcg PO DAILY Unknown History tablet Held on 09/29/24. Instructions: pt out of maria esther ursodiol 300 mg capsule See Rx Instructions .Route . COMPLEX 03/04/24 Unknown History ursodiol 300 mg capsule 300 mg PO BID #90 caps 05/0809/28/24 Rx Allergy/AdvReac Type Severity Reaction Status Date / Time gabapentin Allergy Severe Depression, Verified 09/29/24 10:14 suicidal thoughts cat dander Allergy Mild unknown Verified 09/29/24 10:14 latex Allergy Mild Redness, Verified 09/29/24 10:14 itching niacinamide Allergy Mild Facial Verified 09/29/24 10:14 Numbness rabbit dander Allergy Mild SOB Verified 09/29/24 10:14 aspartame AdvReac Mild Severe Verified 09/29/24 10:14 Headache atorvastatin AdvReac Mild Muscle Verified 09/29/24 10:14 Aches azithromycin (From Zithromax) AdvReac Mild GI upset Verified 09/29/24 10:14 doxycycline AdvReac Mild GI upset Verified 09/29/24 10:14 duloxetine (From Cymbalta) AdvReac Mild Intolerance, Verified 09/29/24 10:14 elevated BP, elevated HR erythromycin base AdvReac Mild GI upset Verified 09/29/24 10:14 monosodium glutamate AdvReac Mild Severe Verified 09/29/24 10:14 Headache niacin AdvReac Mild Intolerance Verified 09/29/24 10:14 rosuvastatin (From Crestor) AdvReac Mild Myalgia Verified 09/29/24 10:14 [place]'s wort AdvReac Mild NEEDS Verified 09/29/24 10:14 FOLLOW-UP sucralose (From Splenda AdvReac Mild Severe Verified 09/29/24 10:14 (sucralose)) Headaches Family History Other Alzheimer disease Cancer Diabetes Heart disease Hypertension Osteoarthritis Surgical History Hx of bladder repair surgery History of hysterectomy Hx of colonoscopy with polypectomy History of esophagogastroduodenoscopy (EGD) Hx of breast surgery Hx of foot surgery Hx of dilation and curettage Hx of shoulder surgery H/O vein stripping H/O umbilical hernia repair Tubal ligation status S/P TKR (total knee replacement) Social History household members: none housing: house current occupational status: employed current occupation: [employer] Smoking Status: Former smoker alcohol intake: current alcohol intake frequency: holidays/special occasions only what type of physical activity do you participate in: walking seatbelt use: always do you feel safe at home: Yes Review of Systems (Anesthesia) ROS Narrative System reviewed and no additional complaints, except as documented. 09/29/24 1112 <Electronically signed by Freddy iglesias MD> Date _ Freddy Henning MD Cosigner Signature: Date CC: ~ Signed [facility] Work Phone: Consult note Author Ketan Pitts [facility] Note Date/Time September 29, 2024 12: 39pm [facility] Medical Records Department [address] [place] [id number] Anesthesia Postop Eval I 09/29/24 1149 MR#: [id number] Acct: [id number] Name: CRYSTAL THAKUR Rep #:[id number] : 1960 64 From: Ketan Pitts PCP: Dr. Gabbie Grady MD Status: G [facility] Y Race: C Location: [place] [address] Anesthesia: Postop Eval I Current Vital Signs Temperature: 98.5 F Pulse Rate: 68 Blood Pressure: 127/72 Respiratory Rate: 16 Pulse Ox: 98 Oxygen Delivery Method: Room Air Assessment Airway patent: Yes Spontaneous unlabored respirations: Yes Mental status: Awake and Calm nausea: No Vomiting: No Anesthesia Complication: No Fluid Hydration Crystalloid volume administer (ml): 45 Total IV fluid infused: 45 Progress Note Anesthesia document: Postop Eval 1 completed: Yes 09/29/24 1149 <Electronically signed by Ketan Pitts > Date _ Ketan Gary Signature: Date CC: ~ Signed [facility] Work Phone: Evaluation + Plan note No data available for this section [facility] Evaluation note* Diagnosis Type 2 diabetes mellitus without retinopathy (HCC)- Primary Type II or unspecified type diabetes mellitus without mention of complication, not stated as uncontrolled Giant cell arteritis (HCC) Giant cell arteritis Glaucoma, steroid induced Corticosteroid-induced glaucoma, glaucomatous stage [facility] Diagnosis Urinary tract infection without hematuria, site unspecified- Primary [facility] Diagnosis Acute midline low back pain without sciatica [facility] Diagnosis Controlled type 2 diabetes mellitus without complication, without long-term current use of insulin (HCC) Acute midline low back pain without sciatica [facility] Diagnosis Acute midline low back pain without sciatica- Primary Rib pain on left side Chest pain, unspecified [facility] Diagnosis Acute midline low back pain without sciatica [facility] Diagnosis Other diabetic neurological complication associated with type 2 diabetes mellitus (HCC)- Primary Onychomycosis Dermatophytosis of nail Pain in toe of left foot Pain in limb Pain in toe of right foot Pain in limb Hyperkeratosis Acquired keratoderma [facility] Diagnosis Acute midline low back pain without sciatica- Primary [facility] Diagnosis Acute midline low back pain without sciatica [facility] Diagnosis Right shoulder pain, unspecified chronicity- Primary [facility] Diagnosis Onset Date Resolution Status Cholelithiasis acute Esophageal candidiasis acute Tubular adenoma of colon acu te Fibromuscular dysplasia acut e GCA (giant cell arteritis) a cute Staghorn calculus acute HTN (hypertension) chronic Type 2 diabetes mellitus chr onic [facility] Work Phone: Evaluation note* Diagnosis Acute midline low back pain without sciatica documented in this encounter [facility] note* Diagnosis Acute midline low back pain without sciatica- Primary documented in this encounter [facility] note* Diagnosis HYPERTENSION Essential hypertension, benign Fibromyalgia Mylagia and myositis, unspecified documented in this encounter [facility] note* Diagnosis Controlled type 2 diabetes mellitus without complication, without long-term current use of insulin (HCC)- Primary Acute midline low back pain without sciatica Fibromyalgia Mylagia and myositis, unspecified Mixed hyperlipidemia HYPERTENSION Essential hypertension, benign Gastroesophageal reflux disease, unspecified whether esophagitis present Acute right ankle pain documented in this encounter [facility] note* Diagnosis Acute midline low back pain without sciatica- Primary documented in this encounter [facility] note* Diagnosis Hospital discharge follow-up- Primary Other follow-up examination Puncture wound Open wound(s) (multiple) of unspecified site(s), without mention of complication Acute right ankle pain documented in this encounter [facility] note* Diagnosis Acute midline low back pain without sciatica- Primary documented in this encounter [facility] note* Diagnosis Left knee pain, unspecified chronicity documented in this encounter [facility] note* Diagnosis Primary osteoarthritis of left knee- Primary Primary localized osteoarthrosis, lower leg Acute pain of left knee Contusion of left knee, initial encounter documented in this encounter [facility] note* Diagnosis Fibromyalgia Mylagia and myositis, unspecified documented in this encounter [facility] note* Diagnosis HYPERTENSION- Primary Essential hypertension, benign documented in this encounter [facility] note* Diagnosis Right inguinal hernia- Primary Inguinal hernia without mention of obstruction or gangrene, unilateral or unspecified, (not specified as recurrent) documented in this encounter [facility] note* Diagnosis Bilateral recurrent inguinal hernia without obstruction or gangrene- Primary Inguinal hernia without mention of obstruction or gangrene, recurrent bilateral documented in this encounter [facility] note* Diagnosis Controlled type 2 diabetes mellitus without complication, without long-term current use of insulin (HCC)- Primary HYPERTENSION Essential hypertension, benign Mixed hyperlipidemia Statin intolerance Other drug allergy Fibromuscular dysplasia (HCC) Other specified disorders of arteries and arterioles Fibromyalgia Mylagia and myositis, unspecified Temporal arteritis (HCC) Giant cell arteritis [facility] [place] [facility] Diagnosis Non-recurrent bilateral inguinal hernia without obstruction or gangrene- Primary [facility] [place] [facility]* Diagnosis Tobacco abuse Tobacco use disorder Bilateral inguinal hernia without obstruction or gangrene, recurrence not specified [facility] [place] [facility]* Diagnosis Fibromyalgia Mylagia and myositis, unspecified Bilateral inguinal hernia without obstruction or gangrene, recurrence not specified [facility] [place] [facility]* Diagnosis skilled nursing systemic steroid user- Primary skilled nursing current use of systemic steroids Encounter for long-term (current) use of steroids Bilateral inguinal hernia without obstruction or gangrene, recurrence not specified [facility] [place] [facility]* Diagnosis Pre-op exam- Primary Preoperative examination, unspecified Tobacco abuse, in remission Personal history of tobacco use, presenting hazards to health Mixed hyperlipidemia HYPERTENSION Essential hypertension, benign Fibromuscular dysplasia (HCC) Other specified disorders of arteries and arterioles Controlled type 2 diabetes mellitus without complication, without long-term current use of insulin (HCC) Heart palpitations Palpitations Bilateral inguinal hernia without obstruction or gangrene, recurrence not specified [facility] [place] [facility]* Diagnosis skilled nursing systemic steroid user Bilateral inguinal hernia without obstruction or gangrene, recurrence not specified documented in this encounter [facility] note* Diagnosis Onset Date Resolution Status Bilateral inguinal hernia wi thout obstruction or gangrene acute Cholelithiasis acute GCA (giant cell arteritis) a cute History of hysterectomy acut e Hx of bladder repair surgery acute [facility] Work Phone: Evaluation note* Diagnosis HYPERTENSION Essential hypertension, benign [facility] this [facility] [place] [facility]* Diagnosis Encounter for screening mammogram for breast cancer documented [facility] this [facility] [place] [facility]* Diagnosis Controlled type 2 diabetes mellitus without complication, without long-term current use of insulin (HCC) [facility] [place] [facility]* Diagnosis Sinobronchitis Unspecified sinusitis (chronic) documented [facility] this [facility] [place] [facility]* Diagnosis Left shoulder pain, unspecified chronicity- Primary [facility] [place] [facility]* Diagnosis HYPERTENSION Essential hypertension, benign documented [facility] this [facility] [place] [facility]* Diagnosis Encounter for screening for lung cancer- Primary Former tobacco use Personal history of tobacco use, presenting hazards to health [facility] this [facility] [place] [facility]* Diagnosis Fatigue, unspecified type- Primary [facility] [place] [facility]* Diagnosis Controlled type 2 diabetes mellitus without complication, without long-term current use of insulin (HCC)- Primary HYPERTENSION Essential hypertension, benign Abdominal bloating Flatulence, eructation, and gas pain Pain of upper abdomen Abdominal pain, other specified site Acute right ankle pain Cough Mixed hyperlipidemia Fibromyalgia Mylagia and myositis, unspecified Vitamin D deficiency Unspecified vitamin D deficiency Neuropathy Mononeuritis of unspecified site Memory change Memory loss Fatigue, unspecified type documented [facility] this [facility] [place] [facility]* Diagnosis Arterial fibromuscular dysplasia (HCC)- Primary Other specified disorders of arteries and arterioles Atherosclerosis Generalized and unspecified atherosclerosis Mixed hyperlipidemia Statin intolerance Other drug allergy [facility] [place] [facility]* Diagnosis HYPERTENSION- Primary Essential hypertension, benign documented [facility] this [facility] [place] [facility]* Diagnosis Other diabetic neurological complication associated with type 2 diabetes mellitus (HCC)- Primary Onychomycosis Dermatophytosis of nail Pain in toe of left foot Pain in limb Pain in toe of right foot Pain in limb Hyperkeratosis Acquired keratoderma Left foot pain Pain in limb [facility] [place] [facility]* Diagnosis Chronic left shoulder pain- Primary Pain in joint, shoulder region Nontraumatic incomplete tear of left rotator cuff Partial tear of rotator cuff documented [facility] this [facility] [place] [facility]* Diagnosis Fibromyalgia Mylagia and myositis, unspecified documented [facility] this [facility] [place] [facility]* Diagnosis Left shoulder pain, unspecified chronicity documented [facility] this encounter [facility] [place] [facility]* Diagnosis Encounter for screening mammogram for breast cancer [facility] Diagnosis Chronic left shoulder pain- Primary Pain in joint, shoulder region Biceps tendonitis on left Bicipital tenosynovitis documented in this encounter [facility] [place] [facility]* Diagnosis Fibromyalgia- Primary Mylagia and myositis, unspecified Temporal arteritis (HCC) Giant cell arteritis [facility] Diagnosis Controlled type 2 diabetes mellitus without complication, without long-term current use of insulin ([facility]) documented in this encounter [facility] [place] [facility]* Diagnosis Fibromyalgia Mylagia and myositis, unspecified documented in this encounter [facility] note* Diagnosis HYPERTENSION Essential hypertension, benign documented in this encounter [facility] note* Diagnosis Mixed hyperlipidemia documented in this encounter [facility] note* Diagnosis HYPERTENSION Essential hypertension, benign documented in this encounter [facility] note* Diagnosis HYPERTENSION Essential hypertension, benign documented in this encounter [facility] note* Diagnosis Biceps tendonitis on left- Primary Bicipital tenosynovitis Chronic left shoulder pain Pain in joint, shoulder region documented in this encounter [facility] note* Diagnosis Encounter for screening mammogram for breast cancer documented in this encounter [facility] note* Diagnosis Biceps tendonitis on left Bicipital tenosynovitis Chronic left shoulder pain Pain in joint, shoulder region documented in this encounter [facility] note* Diagnosis Encounter for screening mammogram for breast cancer documented in this encounter [facility] note* Diagnosis Abnormal mammogram- Primary Abnormal mammogram, unspecified documented in this encounter [facility] note* Diagnosis Bicipital tendinitis, left- Primary documented in this encounter [facility]* Diagnosis Biceps tendinitis of left upper extremity- Primary Bicipital tendinitis, left documented in this encounter [facility] note* Diagnosis Abdominal bloating Flatulence, eructation, and gas pain Pain of upper abdomen Abdominal pain, other specified site Bicipital tendinitis, left documented in this encounter [facility] note* Diagnosis HYPERTENSION- Primary Essential hypertension, benign Mixed hyperlipidemia Fibromyalgia Mylagia and myositis, unspecified Controlled type 2 diabetes mellitus without complication, without long-term current use of insulin (HCC) Biceps tendonosis of right shoulder Temporal arteritis (HCC) Giant cell arteritis Bicipital tendinitis, left documented in this encounter [facility] note* Diagnosis Fibromyalgia Mylagia and myositis, unspecified Bicipital tendinitis, left documented in this encounter [facility] note* Diagnosis Abnormal mammogram Abnormal mammogram, unspecified Bicipital tendinitis, left documented in this encounter [facility] note* Diagnosis Pre-op examination- Primary Preoperative examination, unspecified Bicipital tendinitis, left HYPERTENSION Essential hypertension, benign Mixed hyperlipidemia Aortic atherosclerosis (HCC) Atherosclerosis of aorta Giant cell arteritis (HCC) Giant cell arteritis Fibromuscular dysplasia (HCC) Other specified disorders of arteries and arterioles Gastroesophageal reflux disease, unspecified whether esophagitis present Controlled type 2 diabetes mellitus without complication, without long-term current use of insulin (HCC) Tobacco abuse, in remission Personal history of tobacco use, presenting hazards to health Bicipital tendinitis, left * Assessment & Plan Note - Marah Pinzon APRN.CNP - 01/17/2024 1:26 PM EDT Associated Problem(s): Tobacco abuse, in remission Former cigarette smoker. Quit 2013. 32 pack years. * Assessment & Plan Note - Marah Pinzon APRN.CNP - 01/17/2024 1:26 PM EDT Associated Problem(s): Giant cell arteritis (HCC) Diagnosed in 2020. Was on high dose Prednisone for 9 months- has since been discontinued. * Assessment & Plan Note - Marah Pinzon APRN.CNP - 01/17/2024 1:25 PM EDT Associated Problem(s): Controlled type 2 diabetes mellitus without complication, without long-term current use of insulin (HCC) Metformin- instructed to hold morning of surgery. Hemoglobin A1C (%) Date Value 12/24/2023 6.3 03/28/2021 6.9 * Assessment & Plan Note - Marah Pinzon APRN.CNP - 01/17/2024 1:24 PM EDT Associated Problem(s): Esophageal reflux Omeprazole. Instructed to take morning of surgery. * Assessment & Plan Note - Marah Pinzon APRN.CNP - 01/17/2024 1:24 PM EDT Associated Problem(s): Fibromuscular dysplasia (HCC) Images from the original note were not included. Stable. Diagnosed in 2017. In renal and carotid arteries. Aspirin- instructed to follow prescribing physician and surgeon's pre-op instructions. [facility] not seen [facility] within the last year- managed by PCP. Abdominal US 11/24/21: * Assessment & Plan Note - Marah Pinzon APRN.CNP - 01/17/2024 1:21 PM EDT Associated Problem(s): Aortic atherosclerosis (HCC) CT lung 11/07/22: Other findings: The central airways are patent without endobronchial lesion. No focal consolidation. No pleural effusion. 9 mm calcified nodule in the isthmus of the thyroid gland. No thoracic lymphadenopathy. Mild atherosclerotic calcifications of the thoracic aorta. The thoracic aorta and main pulmonary artery are normal in caliber. The cardiac chambers are normal in size. Minimal coronary artery calcifications present. No pericardial effusion. Mild degenerative changes of the thoracic spine. The soft tissues of the chest wall are unremarkable. There is cholelithiasis. The imaged upper abdomen discloses no acute abnormality. * Assessment & Plan Note - Marah Pinzon APRN.CNP - 01/17/2024 1:19 PM EDT Associated Problem(s): Hyperlipidemia No medication. Statin intolerant. Diet and lifestyle modification. * Assessment & Plan Note - Marah Pinzon APRN.CNP - 01/17/2024 1:18 PM EDT Associated Problem(s): HYPERTENSION Nadolol and HCTZ- instructed to take morning of surgery. Amlodipine- instructed to continue as normal, as patient takes in the evenings. Lisinopril- instructed to hold morning of surgery. * Assessment & Plan Note - Marah Pinzon APRN.CNP - 01/17/2024 7:30 AM EDT Associated Problem(s): Bicipital tendinitis, left Surgery scheduled 01/21/24. * Assessment & Plan Note - Marah Pinzon APRN.CNP - 01/17/2024 7:30 AM EDT Associated Problem(s): Pre-op examination see note for medical conditions which may affect monique-operative course that were addressed at today's visit. [facility] Fibromyalgia Mylagia and myositis, unspecified S/P left rotator cuff repair [facility] S/P left rotator cuff repair- Primary [facility] Diagnosis S/P left rotator cuff repair- Primary [facility] Diagnosis S/P left rotator cuff repair- Primary [facility] Diagnosis S/P left rotator cuff repair- Primary [facility] Diagnosis S/P left rotator cuff repair- Primary [facility] Diagnosis Controlled type 2 diabetes mellitus without complication, without long-term current use of insulin (HCC) [facility] Diagnosis S/P left rotator cuff repair- Primary [facility] Diagnosis S/P left rotator cuff repair [facility] Diagnosis Pre-op exam- Primary Preoperative examination, unspecified Tobacco abuse, in remission Personal history of tobacco use, presenting hazards to health Mixed hyperlipidemia HYPERTENSION Essential hypertension, benign Fibromuscular dysplasia (HCC) Other specified disorders of arteries and arterioles Controlled type 2 diabetes mellitus without complication, without long-term current use of insulin (HCC) Heart palpitations Palpitations Pre-op examination- Primary Preoperative examination, unspecified Bicipital tendinitis, left HYPERTENSION Essential hypertension, benign Mixed hyperlipidemia Aortic atherosclerosis (HCC) Atherosclerosis of aorta Giant cell arteritis (HCC) Giant cell arteritis Fibromuscular dysplasia (HCC) Other specified disorders of arteries and arterioles Gastroesophageal reflux disease, unspecified whether esophagitis present Controlled type 2 diabetes mellitus without complication, without long-term current use of insulin (HCC) Tobacco abuse, in remission Personal history of tobacco use, presenting hazards to health S/P left rotator cuff repair documented in this encounter [facility] note* Diagnosis Pre-op exam- Primary Preoperative examination, unspecified Tobacco abuse, in remission Personal history of tobacco use, presenting hazards to health Mixed hyperlipidemia HYPERTENSION Essential hypertension, benign Fibromuscular dysplasia (HCC) Other specified disorders of arteries and arterioles Controlled type 2 diabetes mellitus without complication, without long-term current use of insulin (HCC) Heart palpitations Palpitations Pre-op examination- Primary Preoperative examination, unspecified Bicipital tendinitis, left HYPERTENSION Essential hypertension, benign Mixed hyperlipidemia Aortic atherosclerosis (HCC) Atherosclerosis of aorta Giant cell arteritis (HCC) Giant cell arteritis Fibromuscular dysplasia (HCC) Other specified disorders of arteries and arterioles Gastroesophageal reflux disease, unspecified whether esophagitis present Controlled type 2 diabetes mellitus without complication, without long-term current use of insulin (HCC) Tobacco abuse, in remission Personal history of tobacco use, presenting hazards to health S/P left rotator cuff repair- Primary documented in this encounter [facility] note* Diagnosis Pre-op exam- Primary Preoperative examination, unspecified Tobacco abuse, in remission Personal history of tobacco use, presenting hazards to health Mixed hyperlipidemia HYPERTENSION Essential hypertension, benign Fibromuscular dysplasia (HCC) Other specified disorders of arteries and arterioles Controlled type 2 diabetes mellitus without complication, without long-term current use of insulin (HCC) Heart palpitations Palpitations Pre-op examination- Primary Preoperative examination, unspecified Bicipital tendinitis, left HYPERTENSION Essential hypertension, benign Mixed hyperlipidemia Aortic atherosclerosis (HCC) Atherosclerosis of aorta Giant cell arteritis (HCC) Giant cell arteritis Fibromuscular dysplasia (HCC) Other specified disorders of arteries and arterioles Gastroesophageal reflux disease, unspecified whether esophagitis present Controlled type 2 diabetes mellitus without complication, without long-term current use of insulin (HCC) Tobacco abuse, in remission Personal history of tobacco use, presenting hazards to health S/P left rotator cuff repair- Primary [facility] [place] [facility]* Diagnosis Pre-op exam- Primary Preoperative examination, unspecified Tobacco abuse, in remission Personal history of tobacco use, presenting hazards to health Mixed hyperlipidemia HYPERTENSION Essential hypertension, benign Fibromuscular dysplasia (HCC) Other specified disorders of arteries and arterioles Controlled type 2 diabetes mellitus without complication, without long-term current use of insulin (HCC) Heart palpitations Palpitations Pre-op examination- Primary Preoperative examination, unspecified Bicipital tendinitis, left HYPERTENSION Essential hypertension, benign Mixed hyperlipidemia Aortic atherosclerosis (HCC) Atherosclerosis of aorta Giant cell arteritis (HCC) Giant cell arteritis Fibromuscular dysplasia (HCC) Other specified disorders of arteries and arterioles Gastroesophageal reflux disease, unspecified whether esophagitis present Controlled type 2 diabetes mellitus without complication, without long-term current use of insulin (HCC) Tobacco abuse, in remission Personal history of tobacco use, presenting hazards to health S/P left rotator cuff repair documented in this encounter [facility] note* Diagnosis Pre-op exam- Primary Preoperative examination, unspecified Tobacco abuse, in remission Personal history of tobacco use, presenting hazards to health Mixed hyperlipidemia HYPERTENSION Essential hypertension, benign Fibromuscular dysplasia (HCC) Other specified disorders of arteries and arterioles Controlled type 2 diabetes mellitus without complication, without long-term current use of insulin (HCC) Heart palpitations Palpitations Pre-op examination- Primary Preoperative examination, unspecified Bicipital tendinitis, left HYPERTENSION Essential hypertension, benign Mixed hyperlipidemia Aortic atherosclerosis (HCC) Atherosclerosis of aorta Giant cell arteritis (HCC) Giant cell arteritis Fibromuscular dysplasia (HCC) Other specified disorders of arteries and arterioles Gastroesophageal reflux disease, unspecified whether esophagitis present Controlled type 2 diabetes mellitus without complication, without long-term current use of insulin (HCC) Tobacco abuse, in remission Personal history of tobacco use, presenting hazards to health S/P left rotator cuff repair- Primary documented in this encounter [facility] note* Diagnosis Pre-op exam- Primary Preoperative examination, unspecified Tobacco abuse, in remission Personal history of tobacco use, presenting hazards to health Mixed hyperlipidemia HYPERTENSION Essential hypertension, benign Fibromuscular dysplasia (HCC) Other specified disorders of arteries and arterioles Controlled type 2 diabetes mellitus without complication, without long-term current use of insulin (HCC) Heart palpitations Palpitations Pre-op examination- Primary Preoperative examination, unspecified Bicipital tendinitis, left HYPERTENSION Essential hypertension, benign Mixed hyperlipidemia Aortic atherosclerosis (HCC) Atherosclerosis of aorta Giant cell arteritis (HCC) Giant cell arteritis Fibromuscular dysplasia (HCC) Other specified disorders of arteries and arterioles Gastroesophageal reflux disease, unspecified whether esophagitis present Controlled type 2 diabetes mellitus without complication, without long-term current use of insulin (HCC) Tobacco abuse, in remission Personal history of tobacco use, presenting hazards to health Controlled type 2 diabetes mellitus without complication, without long-term current use of insulin (HCC) [facility] [place] [facility]* Diagnosis Pre-op exam- Primary Preoperative examination, unspecified Tobacco abuse, in remission Personal history of tobacco use, presenting hazards to health Mixed hyperlipidemia HYPERTENSION Essential hypertension, benign Fibromuscular dysplasia (HCC) Other specified disorders of arteries and arterioles Controlled type 2 diabetes mellitus without complication, without long-term current use of insulin (HCC) Heart palpitations Palpitations Pre-op examination- Primary Preoperative examination, unspecified Bicipital tendinitis, left HYPERTENSION Essential hypertension, benign Mixed hyperlipidemia Aortic atherosclerosis (HCC) Atherosclerosis of aorta Giant cell arteritis (HCC) Giant cell arteritis Fibromuscular dysplasia (HCC) Other specified disorders of arteries and arterioles Gastroesophageal reflux disease, unspecified whether esophagitis present Controlled type 2 diabetes mellitus without complication, without long-term current use of insulin (HCC) Tobacco abuse, in remission Personal history of tobacco use, presenting hazards to health S/P left rotator cuff repair- Primary documented in this encounter [facility] note* Diagnosis Pre-op exam- Primary Preoperative examination, unspecified Tobacco abuse, in remission Personal history of tobacco use, presenting hazards to health Mixed hyperlipidemia HYPERTENSION Essential hypertension, benign Fibromuscular dysplasia (HCC) Other specified disorders of arteries and arterioles Controlled type 2 diabetes mellitus without complication, without long-term current use of insulin (HCC) Heart palpitations Palpitations Pre-op examination- Primary Preoperative examination, unspecified Bicipital tendinitis, left HYPERTENSION Essential hypertension, benign Mixed hyperlipidemia Aortic atherosclerosis (HCC) Atherosclerosis of aorta Giant cell arteritis (HCC) Giant cell arteritis Fibromuscular dysplasia (HCC) Other specified disorders of arteries and arterioles Gastroesophageal reflux disease, unspecified whether esophagitis present Controlled type 2 diabetes mellitus without complication, without long-term current use of insulin (HCC) Tobacco abuse, in remission Personal history of tobacco use, presenting hazards to health S/P left rotator cuff repair- Primary documented in this encounter [facility] note* Diagnosis Acute right ankle pain Puncture wound Open wound(s) (multiple) of unspecified site(s), without mention of complication Pre-op exam- Primary Preoperative examination, unspecified Tobacco abuse, in remission Personal history of tobacco use, presenting hazards to health Mixed hyperlipidemia HYPERTENSION Essential hypertension, benign Fibromuscular dysplasia (HCC) Other specified disorders of arteries and arterioles Controlled type 2 diabetes mellitus without complication, without long-term current use of insulin (HCC) Heart palpitations Palpitations Pre-op examination- Primary Preoperative examination, unspecified Bicipital tendinitis, left HYPERTENSION Essential hypertension, benign Mixed hyperlipidemia Aortic atherosclerosis (HCC) Atherosclerosis of aorta Giant cell arteritis (HCC) Giant cell arteritis Fibromuscular dysplasia (HCC) Other specified disorders of arteries and arterioles Gastroesophageal reflux disease, unspecified whether esophagitis present Controlled type 2 diabetes mellitus without complication, without long-term current use of insulin (HCC) Tobacco abuse, in remission Personal history of tobacco use, presenting hazards to health [facility] [place] [facility]* Diagnosis Pre-op exam- Primary Preoperative examination, unspecified Tobacco abuse, in remission Personal history of tobacco use, presenting hazards to health Mixed hyperlipidemia HYPERTENSION Essential hypertension, benign Fibromuscular dysplasia (HCC) Other specified disorders of arteries and arterioles Controlled type 2 diabetes mellitus without complication, without long-term current use of insulin (HCC) Heart palpitations Palpitations Pre-op examination- Primary Preoperative examination, unspecified Bicipital tendinitis, left HYPERTENSION Essential hypertension, benign Mixed hyperlipidemia Aortic atherosclerosis (HCC) Atherosclerosis of aorta Giant cell arteritis (HCC) Giant cell arteritis Fibromuscular dysplasia (HCC) Other specified disorders of arteries and arterioles Gastroesophageal reflux disease, unspecified whether esophagitis present Controlled type 2 diabetes mellitus without complication, without long-term current use of insulin (HCC) Tobacco abuse, in remission Personal history of tobacco use, presenting hazards to health Acute right ankle pain [facility] [place] [facility]* Diagnosis Pre-op exam- Primary Preoperative examination, unspecified Tobacco abuse, in remission Personal history of tobacco use, presenting hazards to health Mixed hyperlipidemia HYPERTENSION Essential hypertension, benign Fibromuscular dysplasia (HCC) Other specified disorders of arteries and arterioles Controlled type 2 diabetes mellitus without complication, without long-term current use of insulin (HCC) Heart palpitations Palpitations Pre-op examination- Primary Preoperative examination, unspecified Bicipital tendinitis, left HYPERTENSION Essential hypertension, benign Mixed hyperlipidemia Aortic atherosclerosis (HCC) Atherosclerosis of aorta Giant cell arteritis (HCC) Giant cell arteritis Fibromuscular dysplasia (HCC) Other specified disorders of arteries and arterioles Gastroesophageal reflux disease, unspecified whether esophagitis present Controlled type 2 diabetes mellitus without complication, without long-term current use of insulin (HCC) Tobacco abuse, in remission Personal history of tobacco use, presenting hazards to health S/P left rotator cuff repair- Primary [facility] [place] [facility]* Diagnosis Pre-op exam- Primary Preoperative examination, unspecified Tobacco abuse, in remission Personal history of tobacco use, presenting hazards to health Mixed hyperlipidemia HYPERTENSION Essential hypertension, benign Fibromuscular dysplasia (HCC) Other specified disorders of arteries and arterioles Controlled type 2 diabetes mellitus without complication, without long-term current use of insulin (HCC) Heart palpitations Palpitations Pre-op examination- Primary Preoperative examination, unspecified Bicipital tendinitis, left HYPERTENSION Essential hypertension, benign Mixed hyperlipidemia Aortic atherosclerosis (HCC) Atherosclerosis of aorta Giant cell arteritis (HCC) Giant cell arteritis Fibromuscular dysplasia (HCC) Other specified disorders of arteries and arterioles Gastroesophageal reflux disease, unspecified whether esophagitis present Controlled type 2 diabetes mellitus without complication, without long-term current use of insulin (HCC) Tobacco abuse, in remission Personal history of tobacco use, presenting hazards to health HYPERTENSION- Primary Essential hypertension, benign documented in this encounter [facility] note* Diagnosis Pre-op exam- Primary Preoperative examination, unspecified Tobacco abuse, in remission Personal history of tobacco use, presenting hazards to health Mixed hyperlipidemia HYPERTENSION Essential hypertension, benign Fibromuscular dysplasia (HCC) Other specified disorders of arteries and arterioles Controlled type 2 diabetes mellitus without complication, without long-term current use of insulin (HCC) Heart palpitations Palpitations Pre-op examination- Primary Preoperative examination, unspecified Bicipital tendinitis, left HYPERTENSION Essential hypertension, benign Mixed hyperlipidemia Aortic atherosclerosis (HCC) Atherosclerosis of aorta Giant cell arteritis (HCC) Giant cell arteritis Fibromuscular dysplasia (HCC) Other specified disorders of arteries and arterioles Gastroesophageal reflux disease, unspecified whether esophagitis present Controlled type 2 diabetes mellitus without complication, without long-term current use of insulin (HCC) Tobacco abuse, in remission Personal history of tobacco use, presenting hazards to health Fibromyalgia Mylagia and myositis, unspecified documented in this encounter [facility] note* Diagnosis Pre-op exam- Primary Preoperative examination, unspecified Tobacco abuse, in remission Personal history of tobacco use, presenting hazards to health Mixed hyperlipidemia HYPERTENSION Essential hypertension, benign Fibromuscular dysplasia (HCC) Other specified disorders of arteries and arterioles Controlled type 2 diabetes mellitus without complication, without long-term current use of insulin (HCC) Heart palpitations Palpitations Pre-op examination- Primary Preoperative examination, unspecified Bicipital tendinitis, left HYPERTENSION Essential hypertension, benign Mixed hyperlipidemia Aortic atherosclerosis (HCC) Atherosclerosis of aorta Giant cell arteritis (HCC) Giant cell arteritis Fibromuscular dysplasia (HCC) Other specified disorders of arteries and arterioles Gastroesophageal reflux disease, unspecified whether esophagitis present Controlled type 2 diabetes mellitus without complication, without long-term current use of insulin (HCC) Tobacco abuse, in remission Personal history of tobacco use, presenting hazards to health S/P left rotator cuff repair- Primary [facility] [place] [facility]* Diagnosis Pre-op exam- Primary Preoperative examination, unspecified Tobacco abuse, in remission Personal history of tobacco use, presenting hazards to health Mixed hyperlipidemia HYPERTENSION Essential hypertension, benign Fibromuscular dysplasia (HCC) Other specified disorders of arteries and arterioles Controlled type 2 diabetes mellitus without complication, without long-term current use of insulin (HCC) Heart palpitations Palpitations Pre-op examination- Primary Preoperative examination, unspecified Bicipital tendinitis, left HYPERTENSION Essential hypertension, benign Mixed hyperlipidemia Aortic atherosclerosis (HCC) Atherosclerosis of aorta Giant cell arteritis (HCC) Giant cell arteritis Fibromuscular dysplasia (HCC) Other specified disorders of arteries and arterioles Gastroesophageal reflux disease, unspecified whether esophagitis present Controlled type 2 diabetes mellitus without complication, without long-term current use of insulin (HCC) Tobacco abuse, in remission Personal history of tobacco use, presenting hazards to health S/P left rotator cuff repair- Primary documented in this encounter [facility] note* Diagnosis Low back pain, unspecified back pain laterality, unspecified chronicity, unspecified whether sciatica present Pre-op exam- Primary Preoperative examination, unspecified Tobacco abuse, in remission Personal history of tobacco use, presenting hazards to health Mixed hyperlipidemia HYPERTENSION Essential hypertension, benign Fibromuscular dysplasia (HCC) Other specified disorders of arteries and arterioles Controlled type 2 diabetes mellitus without complication, without long-term current use of insulin (HCC) Heart palpitations Palpitations Pre-op examination- Primary Preoperative examination, unspecified Bicipital tendinitis, left HYPERTENSION Essential hypertension, benign Mixed hyperlipidemia Aortic atherosclerosis (HCC) Atherosclerosis of aorta Giant cell arteritis (HCC) Giant cell arteritis Fibromuscular dysplasia (HCC) Other specified disorders of arteries and arterioles Gastroesophageal reflux disease, unspecified whether esophagitis present Controlled type 2 diabetes mellitus without complication, without long-term current use of insulin (HCC) Tobacco abuse, in remission Personal history of tobacco use, presenting hazards to health documented in this encounter [facility] note* Diagnosis Pre-op exam- Primary Preoperative examination, unspecified Tobacco abuse, in remission Personal history of tobacco use, presenting hazards to health Mixed hyperlipidemia HYPERTENSION Essential hypertension, benign Fibromuscular dysplasia (HCC) Other specified disorders of arteries and arterioles Controlled type 2 diabetes mellitus without complication, without long-term current use of insulin (HCC) Heart palpitations Palpitations Pre-op examination- Primary Preoperative examination, unspecified Bicipital tendinitis, left HYPERTENSION Essential hypertension, benign Mixed hyperlipidemia Aortic atherosclerosis (HCC) Atherosclerosis of aorta Giant cell arteritis (HCC) Giant cell arteritis Fibromuscular dysplasia (HCC) Other specified disorders of arteries and arterioles Gastroesophageal reflux disease, unspecified whether esophagitis present Controlled type 2 diabetes mellitus without complication, without long-term current use of insulin (HCC) Tobacco abuse, in remission Personal history of tobacco use, presenting hazards to health S/P left rotator cuff repair- Primary documented in this encounter [facility] note* Diagnosis Pre-op exam- Primary Preoperative examination, unspecified Tobacco abuse, in remission Personal history of tobacco use, presenting hazards to health Mixed hyperlipidemia HYPERTENSION Essential hypertension, benign Fibromuscular dysplasia (HCC) Other specified disorders of arteries and arterioles Controlled type 2 diabetes mellitus without complication, without long-term current use of insulin (HCC) Heart palpitations Palpitations Pre-op examination- Primary Preoperative examination, unspecified Bicipital tendinitis, left HYPERTENSION Essential hypertension, benign Mixed hyperlipidemia Aortic atherosclerosis (HCC) Atherosclerosis of aorta Giant cell arteritis (HCC) Giant cell arteritis Fibromuscular dysplasia (HCC) Other specified disorders of arteries and arterioles Gastroesophageal reflux disease, unspecified whether esophagitis present Controlled type 2 diabetes mellitus without complication, without long-term current use of insulin (HCC) Tobacco abuse, in remission Personal history of tobacco use, presenting hazards to health S/P left rotator cuff repair- Primary documented in this encounter [facility] note* Diagnosis Pre-op exam- Primary Preoperative examination, unspecified Tobacco abuse, in remission Personal history of tobacco use, presenting hazards to health Mixed hyperlipidemia HYPERTENSION Essential hypertension, benign Fibromuscular dysplasia (HCC) Other specified disorders of arteries and arterioles Controlled type 2 diabetes mellitus without complication, without long-term current use of insulin (HCC) Heart palpitations Palpitations Pre-op examination- Primary Preoperative examination, unspecified Bicipital tendinitis, left HYPERTENSION Essential hypertension, benign Mixed hyperlipidemia Aortic atherosclerosis (HCC) Atherosclerosis of aorta Giant cell arteritis (HCC) Giant cell arteritis Fibromuscular dysplasia (HCC) Other specified disorders of arteries and arterioles Gastroesophageal reflux disease, unspecified whether esophagitis present Controlled type 2 diabetes mellitus without complication, without long-term current use of insulin (HCC) Tobacco abuse, in remission Personal history of tobacco use, presenting hazards to health Essential hypertension, benign- Primary documented in this encounter [facility] note* Diagnosis Pre-op exam- Primary Preoperative examination, unspecified Tobacco abuse, in remission Personal history of tobacco use, presenting hazards to health Mixed hyperlipidemia HYPERTENSION Essential hypertension, benign Fibromuscular dysplasia (HCC) Other specified disorders of arteries and arterioles Controlled type 2 diabetes mellitus without complication, without long-term current use of insulin (HCC) Heart palpitations Palpitations Pre-op examination- Primary Preoperative examination, unspecified Bicipital tendinitis, left HYPERTENSION Essential hypertension, benign Mixed hyperlipidemia Aortic atherosclerosis (HCC) Atherosclerosis of aorta Giant cell arteritis (HCC) Giant cell arteritis Fibromuscular dysplasia (HCC) Other specified disorders of arteries and arterioles Gastroesophageal reflux disease, unspecified whether esophagitis present Controlled type 2 diabetes mellitus without complication, without long-term current use of insulin (HCC) Tobacco abuse, in remission Personal history of tobacco use, presenting hazards to health S/P left rotator cuff repair- Primary documented in this encounter [facility] note* Diagnosis Pre-op exam- Primary Preoperative examination, unspecified Tobacco abuse, in remission Personal history of tobacco use, presenting hazards to health Mixed hyperlipidemia HYPERTENSION Essential hypertension, benign Fibromuscular dysplasia (HCC) Other specified disorders of arteries and arterioles Controlled type 2 diabetes mellitus without complication, without long-term current use of insulin (HCC) Heart palpitations Palpitations Pre-op examination- Primary Preoperative examination, unspecified Bicipital tendinitis, left HYPERTENSION Essential hypertension, benign Mixed hyperlipidemia Aortic atherosclerosis (HCC) Atherosclerosis of aorta Giant cell arteritis (HCC) Giant cell arteritis Fibromuscular dysplasia (HCC) Other specified disorders of arteries and arterioles Gastroesophageal reflux disease, unspecified whether esophagitis present Controlled type 2 diabetes mellitus without complication, without long-term current use of insulin (HCC) Tobacco abuse, in remission Personal history of tobacco use, presenting hazards to health Fibromyalgia Mylagia and myositis, unspecified [facility] [place] [facility] Diagnosis Pre-op exam- Primary Preoperative examination, unspecified Tobacco abuse, in remission Personal history of tobacco use, presenting hazards to health Mixed hyperlipidemia HYPERTENSION Essential hypertension, benign Fibromuscular dysplasia (HCC) Other specified disorders of arteries and arterioles Controlled type 2 diabetes mellitus without complication, without long-term current use of insulin (HCC) Heart palpitations Palpitations Pre-op examination- Primary Preoperative examination, unspecified Bicipital tendinitis, left HYPERTENSION Essential hypertension, benign Mixed hyperlipidemia Aortic atherosclerosis (HCC) Atherosclerosis of aorta Giant cell arteritis (HCC) Giant cell arteritis Fibromuscular dysplasia (HCC) Other specified disorders of arteries and arterioles Gastroesophageal reflux disease, unspecified whether esophagitis present Controlled type 2 diabetes mellitus without complication, without long-term current use of insulin (HCC) Tobacco abuse, in remission Personal history of tobacco use, presenting hazards to health Cough [facility] [place] [facility]* Diagnosis Pre-op exam- Primary Preoperative examination, unspecified Tobacco abuse, in remission Personal history of tobacco use, presenting hazards to health Mixed hyperlipidemia HYPERTENSION Essential hypertension, benign Fibromuscular dysplasia (HCC) Other specified disorders of arteries and arterioles Controlled type 2 diabetes mellitus without complication, without long-term current use of insulin (HCC) Heart palpitations Palpitations Pre-op examination- Primary Preoperative examination, unspecified Bicipital tendinitis, left HYPERTENSION Essential hypertension, benign Mixed hyperlipidemia Aortic atherosclerosis (HCC) Atherosclerosis of aorta Giant cell arteritis (HCC) Giant cell arteritis Fibromuscular dysplasia (HCC) Other specified disorders of arteries and arterioles Gastroesophageal reflux disease, unspecified whether esophagitis present Controlled type 2 diabetes mellitus without complication, without long-term current use of insulin (HCC) Tobacco abuse, in remission Personal history of tobacco use, presenting hazards to health Sinobronchitis Unspecified sinusitis (chronic) HYPERTENSION Essential hypertension, benign [facility] [place] [facility]* Diagnosis Pre-op exam- Primary Preoperative examination, unspecified Tobacco abuse, in remission Personal history of tobacco use, presenting hazards to health Mixed hyperlipidemia HYPERTENSION Essential hypertension, benign Fibromuscular dysplasia (HCC) Other specified disorders of arteries and arterioles Controlled type 2 diabetes mellitus without complication, without long-term current use of insulin (HCC) Heart palpitations Palpitations Pre-op examination- Primary Preoperative examination, unspecified Bicipital tendinitis, left HYPERTENSION Essential hypertension, benign Mixed hyperlipidemia Aortic atherosclerosis (HCC) Atherosclerosis of aorta Giant cell arteritis (HCC) Giant cell arteritis Fibromuscular dysplasia (HCC) Other specified disorders of arteries and arterioles Gastroesophageal reflux disease, unspecified whether esophagitis present Controlled type 2 diabetes mellitus without complication, without long-term current use of insulin (HCC) Tobacco abuse, in remission Personal history of tobacco use, presenting hazards to health Controlled type 2 diabetes mellitus without complication, without long-term current use of insulin (HCC)- Primary Neuropathy Mononeuritis of unspecified site HYPERTENSION Essential hypertension, benign Mixed hyperlipidemia Fibromyalgia Mylagia and myositis, unspecified Gastroesophageal reflux disease, unspecified whether esophagitis present Temporal arteritis (HCC) Giant cell arteritis Memory change Memory loss Osteopenia, unspecified location [facility] [place] [facility]* Diagnosis Pre-op exam- Primary Preoperative examination, unspecified Tobacco abuse, in remission Personal history of tobacco use, presenting hazards to health Mixed hyperlipidemia HYPERTENSION Essential hypertension, benign Fibromuscular dysplasia (HCC) Other specified disorders of arteries and arterioles Controlled type 2 diabetes mellitus without complication, without long-term current use of insulin (HCC) Heart palpitations Palpitations Pre-op examination- Primary Preoperative examination, unspecified Bicipital tendinitis, left HYPERTENSION Essential hypertension, benign Mixed hyperlipidemia Aortic atherosclerosis (HCC) Atherosclerosis of aorta Giant cell arteritis (HCC) Giant cell arteritis Fibromuscular dysplasia (HCC) Other specified disorders of arteries and arterioles Gastroesophageal reflux disease, unspecified whether esophagitis present Controlled type 2 diabetes mellitus without complication, without long-term current use of insulin (HCC) Tobacco abuse, in remission Personal history of tobacco use, presenting hazards to health Personal history of tobacco use, presenting hazards to health- Primary documented in this encounter [facility] note* Diagnosis Pre-op exam- Primary Preoperative examination, unspecified Tobacco abuse, in remission Personal history of tobacco use, presenting hazards to health Mixed hyperlipidemia HYPERTENSION Essential hypertension, benign Fibromuscular dysplasia (HCC) Other specified disorders of arteries and arterioles Controlled type 2 diabetes mellitus without complication, without long-term current use of insulin (HCC) Heart palpitations Palpitations Pre-op examination- Primary Preoperative examination, unspecified Bicipital tendinitis, left HYPERTENSION Essential hypertension, benign Mixed hyperlipidemia Aortic atherosclerosis (HCC) Atherosclerosis of aorta Giant cell arteritis (HCC) Giant cell arteritis Fibromuscular dysplasia (HCC) Other specified disorders of arteries and arterioles Gastroesophageal reflux disease, unspecified whether esophagitis present Controlled type 2 diabetes mellitus without complication, without long-term current use of insulin (HCC) Tobacco abuse, in remission Personal history of tobacco use, presenting hazards to health Perineal abscess- Primary Cellulitis and abscess of trunk Adverse drug interaction with prescription medication [facility] [place] [facility]* Diagnosis Pre-op exam- Primary Preoperative examination, unspecified Tobacco abuse, in remission Personal history of tobacco use, presenting hazards to health Mixed hyperlipidemia HYPERTENSION Essential hypertension, benign Fibromuscular dysplasia (HCC) Other specified disorders of arteries and arterioles Controlled type 2 diabetes mellitus without complication, without long-term current use of insulin (HCC) Heart palpitations Palpitations Pre-op examination- Primary Preoperative examination, unspecified Bicipital tendinitis, left HYPERTENSION Essential hypertension, benign Mixed hyperlipidemia Aortic atherosclerosis (HCC) Atherosclerosis of aorta Giant cell arteritis (HCC) Giant cell arteritis Fibromuscular dysplasia (HCC) Other specified disorders of arteries and arterioles Gastroesophageal reflux disease, unspecified whether esophagitis present Controlled type 2 diabetes mellitus without complication, without long-term current use of insulin (HCC) Tobacco abuse, in remission Personal history of tobacco use, presenting hazards to health Cough documented in this encounter [facility] note* Diagnosis Pre-op exam- Primary Preoperative examination, unspecified Tobacco abuse, in remission Personal history of tobacco use, presenting hazards to health Mixed hyperlipidemia HYPERTENSION Essential hypertension, benign Fibromuscular dysplasia (HCC) Other specified disorders of arteries and arterioles Controlled type 2 diabetes mellitus without complication, without long-term current use of insulin (HCC) Heart palpitations Palpitations Pre-op examination- Primary Preoperative examination, unspecified Bicipital tendinitis, left HYPERTENSION Essential hypertension, benign Mixed hyperlipidemia Aortic atherosclerosis (HCC) Atherosclerosis of aorta Giant cell arteritis (HCC) Giant cell arteritis Fibromuscular dysplasia (HCC) Other specified disorders of arteries and arterioles Gastroesophageal reflux disease, unspecified whether esophagitis present Controlled type 2 diabetes mellitus without complication, without long-term current use of insulin (HCC) Tobacco abuse, in remission Personal history of tobacco use, presenting hazards to health Sinobronchitis Unspecified sinusitis (chronic) documented in this encounter [facility] note* Diagnosis Pre-op exam- Primary Preoperative examination, unspecified Tobacco abuse, in remission Personal history of tobacco use, presenting hazards to health Mixed hyperlipidemia HYPERTENSION Essential hypertension, benign Fibromuscular dysplasia Other specified disorders of arteries and arterioles Controlled type 2 diabetes mellitus without complication, without long-term current use of insulin (HCC) Heart palpitations Palpitations Pre-op examination- Primary Preoperative examination, unspecified Bicipital tendinitis, left HYPERTENSION Essential hypertension, benign Mixed hyperlipidemia Aortic atherosclerosis Atherosclerosis of aorta Giant cell arteritis (HCC) Giant cell arteritis Fibromuscular dysplasia Other specified disorders of arteries and arterioles Gastroesophageal reflux disease, unspecified whether esophagitis present Controlled type 2 diabetes mellitus without complication, without long-term current use of insulin (HCC) Tobacco abuse, in remission Personal history of tobacco use, presenting hazards to health Essential hypertension, benign documented in this encounter [facility] note* Diagnosis Pre-op exam- Primary Preoperative examination, unspecified Tobacco abuse, in remission Personal history of tobacco use, presenting hazards to health Mixed hyperlipidemia HYPERTENSION Essential hypertension, benign Fibromuscular dysplasia Other specified disorders of arteries and arterioles Controlled type 2 diabetes mellitus without complication, without long-term current use of insulin (HCC) Heart palpitations Palpitations Pre-op examination- Primary Preoperative examination, unspecified Bicipital tendinitis, left HYPERTENSION Essential hypertension, benign Mixed hyperlipidemia Aortic atherosclerosis Atherosclerosis of aorta Giant cell arteritis (HCC) Giant cell arteritis Fibromuscular dysplasia Other specified disorders of arteries and arterioles Gastroesophageal reflux disease, unspecified whether esophagitis present Controlled type 2 diabetes mellitus without complication, without long-term current use of insulin (HCC) Tobacco abuse, in remission Personal history of tobacco use, presenting hazards to health Fatigue, unspecified type- Primary Essential hypertension, benign Family history of hemochromatosis Family history of other endocrine and metabolic diseases documented in this encounter [facility] note* Diagnosis Pre-op exam- Primary Preoperative examination, unspecified Tobacco abuse, in remission Personal history of tobacco use, presenting hazards to health Mixed hyperlipidemia HYPERTENSION Essential hypertension, benign Fibromuscular dysplasia Other specified disorders of arteries and arterioles Controlled type 2 diabetes mellitus without complication, without long-term current use of insulin (HCC) Heart palpitations Palpitations Pre-op examination- Primary Preoperative examination, unspecified Bicipital tendinitis, left HYPERTENSION Essential hypertension, benign Mixed hyperlipidemia Aortic atherosclerosis Atherosclerosis of aorta Giant cell arteritis (HCC) Giant cell arteritis Fibromuscular dysplasia Other specified disorders of arteries and arterioles Gastroesophageal reflux disease, unspecified whether esophagitis present Controlled type 2 diabetes mellitus without complication, without long-term current use of insulin (HCC) Tobacco abuse, in remission Personal history of tobacco use, presenting hazards to health Fibromyalgia Mylagia and myositis, unspecified [facility] [place] [facility]* Diagnosis Pre-op exam- Primary Preoperative examination, unspecified Tobacco abuse, in remission Personal history of tobacco use, presenting hazards to health Mixed hyperlipidemia HYPERTENSION Essential hypertension, benign Fibromuscular dysplasia Other specified disorders of arteries and arterioles Controlled type 2 diabetes mellitus without complication, without long-term current use of insulin (HCC) Heart palpitations Palpitations Pre-op examination- Primary Preoperative examination, unspecified Bicipital tendinitis, left HYPERTENSION Essential hypertension, benign Mixed hyperlipidemia Aortic atherosclerosis Atherosclerosis of aorta Giant cell arteritis (HCC) Giant cell arteritis Fibromuscular dysplasia Other specified disorders of arteries and arterioles Gastroesophageal reflux disease, unspecified whether esophagitis present Controlled type 2 diabetes mellitus without complication, without long-term current use of insulin (HCC) Tobacco abuse, in remission Personal history of tobacco use, presenting hazards to health HYPERTENSION Essential hypertension, benign Controlled type 2 diabetes mellitus without complication, without long-term current use of insulin (HCC) Fibromyalgia Mylagia and myositis, unspecified documented in this encounter [facility] note* Diagnosis Pre-op exam- Primary Preoperative examination, unspecified Tobacco abuse, in remission Personal history of tobacco use, presenting hazards to health Mixed hyperlipidemia HYPERTENSION Essential hypertension, benign Fibromuscular dysplasia Other specified disorders of arteries and arterioles Controlled type 2 diabetes mellitus without complication, without long-term current use of insulin (HCC) Heart palpitations Palpitations Pre-op examination- Primary Preoperative examination, unspecified Bicipital tendinitis, left HYPERTENSION Essential hypertension, benign Mixed hyperlipidemia Aortic atherosclerosis Atherosclerosis of aorta Giant cell arteritis (HCC) Giant cell arteritis Fibromuscular dysplasia Other specified disorders of arteries and arterioles Gastroesophageal reflux disease, unspecified whether esophagitis present Controlled type 2 diabetes mellitus without complication, without long-term current use of insulin (HCC) Tobacco abuse, in remission Personal history of tobacco use, presenting hazards to health Abdominal bloating Flatulence, eructation, and gas pain Pain of upper abdomen Abdominal pain, other specified site Mixed hyperlipidemia [facility] [place] [facility]* Diagnosis Pre-op exam- Primary Preoperative examination, unspecified Tobacco abuse, in remission Personal history of tobacco use, presenting hazards to health Mixed hyperlipidemia HYPERTENSION Essential hypertension, benign Fibromuscular dysplasia Other specified disorders of arteries and arterioles Controlled type 2 diabetes mellitus without complication, without long-term current use of insulin (HCC) Heart palpitations Palpitations Pre-op examination- Primary Preoperative examination, unspecified Bicipital tendinitis, left HYPERTENSION Essential hypertension, benign Mixed hyperlipidemia Aortic atherosclerosis Atherosclerosis of aorta Giant cell arteritis (HCC) Giant cell arteritis Fibromuscular dysplasia Other specified disorders of arteries and arterioles Gastroesophageal reflux disease, unspecified whether esophagitis present Controlled type 2 diabetes mellitus without complication, without long-term current use of insulin (HCC) Tobacco abuse, in remission Personal history of tobacco use, presenting hazards to health Controlled type 2 diabetes mellitus without complication, without long-term current use of insulin (HCC)- Primary Encounter for screening mammogram for malignant neoplasm of breast Other screening mammogram Mixed hyperlipidemia HYPERTENSION Essential hypertension, benign Fibromyalgia Mylagia and myositis, unspecified Abdominal bloating Flatulence, eructation, and gas pain Pain of upper abdomen Abdominal pain, other specified site Vitamin D deficiency Unspecified vitamin D deficiency Family history of hemochromatosis Family history of other endocrine and metabolic diseases Temporal arteritis (HCC) Giant cell arteritis Diarrhea, unspecified type [facility] [place] [facility]* Diagnosis Pre-op exam- Primary Preoperative examination, unspecified Tobacco abuse, in remission Personal history of tobacco use, presenting hazards to health Mixed hyperlipidemia HYPERTENSION Essential hypertension, benign Fibromuscular dysplasia Other specified disorders of arteries and arterioles Controlled type 2 diabetes mellitus without complication, without long-term current use of insulin (HCC) Heart palpitations Palpitations Pre-op examination- Primary Preoperative examination, unspecified Bicipital tendinitis, left HYPERTENSION Essential hypertension, benign Mixed hyperlipidemia Aortic atherosclerosis Atherosclerosis of aorta Giant cell arteritis (HCC) Giant cell arteritis Fibromuscular dysplasia Other specified disorders of arteries and arterioles Gastroesophageal reflux disease, unspecified whether esophagitis present Controlled type 2 diabetes mellitus without complication, without long-term current use of insulin (HCC) Tobacco abuse, in remission Personal history of tobacco use, presenting hazards to health Encounter for screening mammogram for malignant neoplasm of breast Other screening mammogram [facility] [place] [facility]* Diagnosis Pre-op exam- Primary Preoperative examination, unspecified Tobacco abuse, in remission Personal history of tobacco use, presenting hazards to health Mixed hyperlipidemia HYPERTENSION Essential hypertension, benign Fibromuscular dysplasia Other specified disorders of arteries and arterioles Controlled type 2 diabetes mellitus without complication, without long-term current use of insulin (HCC) Heart palpitations Palpitations Pre-op examination- Primary Preoperative examination, unspecified Bicipital tendinitis, left HYPERTENSION Essential hypertension, benign Mixed hyperlipidemia Aortic atherosclerosis Atherosclerosis of aorta Giant cell arteritis (HCC) Giant cell arteritis Fibromuscular dysplasia Other specified disorders of arteries and arterioles Gastroesophageal reflux disease, unspecified whether esophagitis present Controlled type 2 diabetes mellitus without complication, without long-term current use of insulin (HCC) Tobacco abuse, in remission Personal history of tobacco use, presenting hazards to health Controlled type 2 diabetes mellitus without complication, without long-term current use of insulin (HCC) documented [facility] [place] [facility]* Diagnosis Pre-op exam- Primary Preoperative examination, unspecified Tobacco abuse, in remission Personal history of tobacco use, presenting hazards to health Mixed hyperlipidemia HYPERTENSION Essential hypertension, benign Fibromuscular dysplasia Other specified disorders of arteries and arterioles Controlled type 2 diabetes mellitus without complication, without long-term current use of insulin (HCC) Heart palpitations Palpitations Pre-op examination- Primary Preoperative examination, unspecified Bicipital tendinitis, left HYPERTENSION Essential hypertension, benign Mixed hyperlipidemia Aortic atherosclerosis Atherosclerosis of aorta Giant cell arteritis (HCC) Giant cell arteritis Fibromuscular dysplasia Other specified disorders of arteries and arterioles Gastroesophageal reflux disease, unspecified whether esophagitis present Controlled type 2 diabetes mellitus without complication, without long-term current use of insulin (HCC) Tobacco abuse, in remission Personal history of tobacco use, presenting hazards to health Fibromyalgia Mylagia and myositis, unspecified documented in this encounter [facility] for referral (narrative)* Diagnostic Procedure Only (Routine) - Closed Specialty Diagnoses / Procedures Referred By Christina berry Referred To Contact XR IMAGING Diagnoses Acute midline low back pain without sciatica Procedures XR LUMBAR GENERAL 3V AP/LAT/L5-S1 RADEX SPINE LUMBOSACRAL 2/3 VIEWS Gabbie Grady MD [address] [place] [address] Xr Imaging Referral ID Status Reason Start Date Expiration Date V isits Requested Visits Authorized [id number] Closed Auto-Generate d Referral 10/19/2021 11/18/2022 1 1 [facility] for referral (narrative)* - Pending Review Specialty Diagnoses / Procedures Referred By Christina berry Referred To Contact Physical Therapy Diagnoses Right shoulder pain, unspecified chronicity Procedures CONSULT TO PHYSICAL THERAPY Wilmar Vivar MD [address] [address] Referral ID Status Reason Start Date Expiration Date V isits Requested Visits Authorized [id number] Pending Review 11/23/2021 02/21/2022 1 1 [facility] for referral (narrative)* Diagnostic Procedure Only (Routine) - Closed Specialty Diagnoses / Procedures Referred By Joseac t Referred To Contact XR IMAGING Diagnoses Left knee pain, unspecified chronicity Procedures XR KNEE GENERAL 4V AP BOTH/PA BOTH/LAT/MERC LEFT RADIOLOGIC EXAM KNEE COMPLETE 4/MORE VIEWS Tom Soriano MD [address] [place] [address] Xr Imaging Referral ID Status Reason Start Date Expiration Date V isits Requested Visits Authorized [id number] Closed Auto-Generate d Referral 03/22/2022 04/21/2023 1 1 [facility] for referral (narrative)* Diagnostic Procedure Only (Routine) - Authorized Specialty Diagnoses / Procedures Referred By Christina t Referred To Contact BR IMAGING Diagnoses Encounter for screening mammogram for breast cancer Procedures KYLAH SCREENING SCREENING MAMMOGRAPHY BI 2-VIEW BREAST INC CAD Gabbie Grady MD [address] [place] [address] Br Imaging [address] [place] [address] Referral ID Status Reason Start Date Expiration Date Visits Requested Visits Authorized [id number] Authorized Auto-Generat ed Referral 09/27/2022 10/27/2023 1 1 T [facility] for referral (narrative)* Diagnostic Procedure Only (Routine) - Closed Specialty Diagnoses / Procedures Referred By Christina t Referred To Contact XR IMAGING Diagnoses Left shoulder pain, unspecified chronicity Procedures XR SHOULDER GENERAL 3V OR MORE AP/TRUE AP/OTHER LEFT RADEX SHOULDER COMPLETE MINIMUM 2 VIEWS Tom Soriano MD [address] [place] [address] Xr Imaging Referral ID Status Reason Start Date Expiration Date V isits Requested Visits Authorized [id number] Closed Auto-Generate d Referral 10/30/2022 11/29/2023 1 1 [facility] for referral (narrative)* Outpatient Procedure (Routine) - Authorized Specialty Diagnoses / Procedures Referred By Contac t Referred To Contact [facility] Diagnoses Essential hypertension, benign Procedures ECG COMPLETE ECG ROUTINE ECG W/LEAST 12 LDS W/I&R Suly Dallas MD [id number] [place] [address] Referral ID Status Reason Start Date Expiration Date Visits Requested Visits Authorized [id number] Authorized Auto-Generat ed Referral 01/05/2023 01/05/2024 1 1 [facility] for referral (narrative)* Diagnostic Procedure Only (Routine) - Closed Specialty Diagnoses / Procedures Referred By Contac t Referred To Contact XR IMAGING Diagnoses Left foot pain Procedures XR FOOT GENERAL 3V AP/LAT/OBL LEFT RADEX FOOT COMPLETE MINIMUM 3 VIEWS Cheng Mariscal [address] [place] [address] [place] [address] Referral ID Status Reason Start Date Expiration Date V isits Requested Visits Authorized [id number] Closed Auto-Generate d Referral 03/23/2023 04/21/2024 1 1 [facility] for referral (narrative)* Diagnostic Procedure Only (Routine) - Closed Specialty Diagnoses / Procedures Referred By Contac t Referred To Contact XR IMAGING Diagnoses Left shoulder pain, unspecified chronicity Procedures XR SHOULDER GENERAL 3V OR MORE AP/TRUE AP/OTHER LEFT RADEX SHOULDER COMPLETE MINIMUM 2 VIEWS Tom Soriano MD [address] [place] [address] [facility] [id number] Referral ID Status Reason Start Date Expiration Date V isits Requested Visits Authorized [id number] Closed Auto-Generate d Referral 10/30/2022 11/29/2023 1 1 T [facility] for referral (narrative)* Diagnostic Procedure Only (Routine) - Closed Specialty Diagnoses / Procedures Referred By Joseac t Referred To Contact BR IMAGING Diagnoses Encounter for screening mammogram for breast cancer Procedures KYLAH SCREENING SCREENING MAMMOGRAPHY BI 2-VIEW BREAST INC Gabbie Ceballos MD [address] [place] [address] Br Imaging [address] [place] [address] Referral ID Status Reason Start Date Expiration Date V isits Requested Visits Authorized [id number] Closed Auto-Generate d Referral 09/27/2022 10/27/2023 1 1 T [facility] for referral (narrative)* Diagnostic Procedure Only (Routine) - Authorized Specialty Diagnoses / Procedures Referred By Christina berry Referred To Contact BR IMAGING Diagnoses Encounter for screening mammogram for breast cancer Procedures KYLAH SCREENING SCREENING MAMMOGRAPHY BI 2-VIEW BREAST INC Gabbie Ceballos MD [address] [place] [address] Br Imaging [address] [place] [address] Referral ID Status Reason Start Date Expiration Date Visits Requested Visits Authorized [id number] Authorized Auto-Generat ed Referral 11/21/2023 12/20/2024 1 1 [facility] for referral (narrative)* Diagnostic Procedure Only (Routine) - Pending Review Specialty Diagnoses / Procedures Referred By Christina berry Referred To Contact BR IMAGING Diagnoses Abnormal mammogram Procedures KYLAH DIAGNOSTIC RIGHT DIAGNOSTIC MAMMOGRAPHY COMPUTER-AIDED DETCJ Gabbie Leon MD [address] [place] [address] Br Imaging [address] [place] [address] Referral ID Status Reason Start Date Expiration Date Visits Requested Visits Authorized [id number] Pending Review Auto-Generat ed Referral 11/29/2023 12/28/2024 1 1 * Diagnostic Procedure Only (Routine) - Pending Review Specialty Diagnoses / Procedures Referred By Contac t Referred To Contact BR IMAGING Diagnoses Abnormal mammogram Procedures US BREAST LTD RIGHT US BREAST UNI REAL TIME WITH IMAGE LIMITED Gabbie Grady MD [address] [place] [address] Br Imaging [address] [place] [address] Referral ID Status Reason Start Date Expiration Date Visits Requested Visits Authorized [id number] Pending Review Auto-Generat ed Referral 11/29/2023 12/28/2024 1 1 [facility] for referral (narrative)* Diagnostic Procedure Only (Routine) - Closed Specialty Diagnoses / Procedures Referred By Contac t Referred To Contact XR IMAGING Diagnoses Puncture wound Procedures XR TIBIA FIBULA 2V AP/LAT RIGHT RADIOLOGIC EXAMINATION TIBIA & FIBULA 2 VIEWS Xochilt Fernandez, SOLIS.SHELLF[employer] GROWER [address] [place] [address] [place] [address] Referral ID Status Reason Start Date Expiration Date V isits Requested Visits Authorized [id number] Closed Auto-Generate d Referral 01/20/2022 02/19/2023 1 1 * Diagnostic Procedure Only (Routine) - Closed Specialty Diagnoses / Procedures Referred By Contac t Referred To Contact XR IMAGING Diagnoses Acute right ankle pain Procedures XR ANKLE GENERAL 3V AP/LAT/OBL RIGHT RADEX ANKLE COMPLETE MINIMUM 3 VIEWS Xochilt Fernandez, ROUTE SALES DRIVER.[employer]HELLF[employer] GROWER [address] [place] [address] [place] [address] Referral ID Status Reason Start Date Expiration Date V isits Requested Visits Authorized [id number] Closed Auto-Generate d Referral 01/20/2022 02/19/2023 1 1 [facility] for referral (narrative)No reason for referral information availableWWVUMed[facility] Work Phone: Reason for visit Narrative* Diagnostic Procedure Only (Routine) - Closed Specialty Diagnoses / Procedures Referred By Contac t Referred To Contact XR IMAGING Diagnoses Acute midline low back pain without sciatica Procedures XR LUMBAR GENERAL 3V AP/LAT/L5-S1 RADEX SPINE LUMBOSACRAL 2/3 VIEWS Gabbie Grady MD [address] [place] [address] Xr Imaging Referral ID Status Reason Start Date Expiration Date V isits Requested Visits Authorized [id number] Closed Auto-Generate d Referral 10/19/2021 11/18/2022 1 1 [facility] for visit Narrative* Diagnostic Procedure Only (Routine) - Closed Specialty Diagnoses / Procedures Referred By Contac t Referred To Contact XR IMAGING Diagnoses Left knee pain, unspecified chronicity Procedures XR KNEE GENERAL 4V AP BOTH/PA BOTH/LAT/MERC LEFT RADIOLOGIC EXAM KNEE COMPLETE 4/MORE VIEWS Tom Soriano MD [address] [place] [address] Xr Imaging Referral ID Status Reason Start Date Expiration Date V isits Requested Visits Authorized [id number] Closed Auto-Generate d Referral 03/22/2022 04/21/2023 1 1 [facility] for visit Narrative* Diagnostic Procedure Only (Routine) - Closed Specialty Diagnoses / Procedures Referred By Contac t Referred To Contact XR IMAGING Diagnoses Left shoulder pain, unspecified chronicity Procedures XR SHOULDER GENERAL 3V OR MORE AP/TRUE AP/OTHER LEFT RADEX SHOULDER COMPLETE MINIMUM 2 VIEWS Tom Soriano MD [address] [place] [address] [place] [address] Referral ID Status Reason Start Date Expiration Date V isits Requested Visits Authorized [id number] Closed Auto-Generate d Referral 10/30/2022 11/29/2023 1 1 [facility] for visit Narrative* Diagnostic Procedure Only (Routine) - Closed Specialty Diagnoses / Procedures Referred By Contac t Referred To Contact BR IMAGING Diagnoses Encounter for screening mammogram for breast cancer Procedures KYLAH SCREENING SCREENING MAMMOGRAPHY BI 2-VIEW BREAST INC Gabbie Ceballos MD [address] [place] [address] Br Imaging [address] [place] [address] Referral ID Status Reason Start Date Expiration Date V isits Requested Visits Authorized [id number] Closed Auto-Generate d Referral 09/27/2022 10/27/2023 1 1 [facility] for visit Narrative* Diagnostic Procedure Only (Routine) - Closed Specialty Diagnoses / Procedures Referred By Contac t Referred To Contact BR IMAGING Diagnoses Encounter for screening mammogram for breast cancer Procedures KYLAH SCREENING SCREENING MAMMOGRAPHY BI 2-VIEW BREAST INC Gabbie Ceballos MD [address] [place] [address] Br Imaging [address] [place] [address] Referral ID Status Reason Start Date Expiration Date V isits Requested Visits Authorized [id number] Closed Auto-Generate d Referral 11/21/2023 12/20/2024 1 1 [facility] for visit Narrative* Diagnostic Procedure Only (Routine) - Closed Specialty Diagnoses / Procedures Referred By Contac t Referred To Contact BR IMAGING Diagnoses Abnormal mammogram Procedures KYLAH DIAGNOSTIC RIGHT DIAGNOSTIC MAMMOGRAPHY COMPUTER-AIDED DETCJ UNI Gabbie Grady MD [address] [place] [address] Br Imaging [address] [place] [address] Referral ID Status Reason Start Date Expiration Date V isits Requested Visits Authorized [id number] Closed Auto-Generate d Referral 11/29/2023 12/28/2024 1 1 [facility] for visit Narrative* Diagnostic Procedure Only (Routine) - Closed Specialty Diagnoses / Procedures Referred By Contac t Referred To Contact XR IMAGING Diagnoses Puncture wound Procedures XR TIBIA FIBULA 2V AP/LAT RIGHT RADIOLOGIC EXAMINATION TIBIA & FIBULA 2 VIEWS Xochilt Fernandez, ROUTE SALES DRIVER.[employer]OWER [address] [place] [address] [place] [address] Referral ID Status Reason Start Date Expiration Date V isits Requested Visits Authorized [id number] Closed Auto-Generate d Referral 01/20/2022 02/19/2023 1 1 [facility] Diagnostic Procedure Only (Routine) - Closed Specialty Diagnoses / Procedures Referred By Contac t Referred To Contact BR IMAGING Diagnoses Encounter for screening mammogram for malignant neoplasm of breast Procedures KYLAH SCREENING W JOURDAN SCREENING DIGITAL BREAST TOMOSYNTHESIS BI SCREENING MAMMOGRAPHY BI 2-VIEW BREAST INC Gabbie Ceballos MD [address] [place] [address] Phone: tel: fax: BR IMAGING [address] [place] [address] Referral ID Status Reason Start Date Expiration Date V isits Requested Visits Authorized [id number] Closed Auto-Generate d Referral 12/25/2024 01/24/2026 1 1 [facility] Summary Purpose Family History No Family History Records Found Relationship Condition Age at Onset Recorded Date/T keila Not Specified Diabetes mellitus Unknown Alzheimer's disease Unknown Cardiac disease Unknown Osteoarthritis Unknown Malignant neoplasm Unknown Hypertension Unknown Advance Directives No Advanced Directives Records FoundDocuments on File Type Date Recorded 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 Advance Directive(s) 09/19/2021 7:12 AM Advance Directive(s) 01/24/2021 6:13 AM Advance Directive(s) 05/03/2020 10:54 AM Advance Directive(s) 08/22/2017 7:53 AM Documents on File Type Date Recorded 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 Advance Directive(s) 09/19/2021 7:12 AM Advance Directive(s) 01/24/2021 6:13 AM Advance Directive(s) 05/03/2020 10:54 AM Advance Directive(s) 08/22/2017 7:53 AM Advance Directive Response Recorded Date/ Time Living Will No August 01 10:17am Power of Building And Construction Manager No August 01, 2021 10:17am Advance Directive Response Recorded Date/ Time Living Will No August 01 9:17am Power of Building And Construction Manager No August 01, 2021 9:17am Advance Directive Response Recorded Date/ Time Living Will No August 01 10:17am Do you have a Healthcare Power of Building And Construction Manager? No August 01, 2021 10:17am Medications Administered Section Active Administered Medications - up to 3 most recent administrations Medication Order MAR Action Action Date Dose Rate Site tropicamide 1 % 1 Drop (MYDRIACYL) 1 Drop, BOTH EYES, DIRECTED, Starting on Ida 10/06/21 at 1030, Until Ida 10/06/21 at 2229, Administer for dilation Given 10/06/2021 10:46 AM EDT 1 Drop Inactive Administered Medications - up to 3 most recent administrations Medication Order MAR Action Action Date Dose Rate Site betamethasone acetate-betamethasone sodium phosphate 6 mg injection (CELESTONE) 6 mg, Injection - FOR ORTHO USE ONLY, ONE TIME INJECTION, 1 dose, Starting on Sun03/27/22 at 1104, Until Sun03/27/22 at 1104 Given 03/27/2022 11:04 AM EDT 6 mg K nee, Left lidocaine (PF) 10 mg/mL (1 %) 4 mL injection (XYLOCAINE) 4 mL, Injection - FOR ORTHO USE ONLY, ONE TIME INJECTION, 1 dose, Starting on Sun03/27/22 at 1104, Until Sun03/27/22 at 1104 Given 03/27/2022 11:04 AM EDT 4 mL K nee, Left Inactive Administered Medications - up to 3 most recent administrations Medication Order MAR Action Action Date Dose Rate Site betamethasone acetate-betamethasone sodium phosphate 6 mg injection (CELESTONE) 6 mg, Injection - FOR ORTHO USE ONLY, ONE TIME INJECTION, 1 dose, Starting on Sun03/05/23 at 1224, Until Sun03/05/23 at 1224 Given 03/05/2023 12:24 PM EDT 6 mg Shoulder, Left lidocaine (PF) 10 mg/mL (1 %) 4 mL injection (XYLOCAINE) 4 mL, Injection - FOR ORTHO USE ONLY, ONE TIME INJECTION, 1 dose, Starting on Sun03/05/23 at 1224, Until Sun03/05/23 at 1224 Given 03/05/2023 12:24 PM EDT 4 mL Shoulder, Left Inactive Administered Medications - up to 3 most recent administrations Medication Order MAR Action Action Date Dose Rate Site betamethasone acetate-betamethasone sodium phosphate 3 mg injection (CELESTONE) 3 mg, Injection - FOR ORTHO USE ONLY, ONCE, 1 dose, Starting on 04/23/23 at 1637, Until Sun04/23/23 at 1637 Given 04/23/2023 4:37 PM EDT 3 mg lidocaine (PF) 10 mg/mL (1 %) 4 mL injection (XYLOCAINE) 4 mL, Injection - FOR ORTHO USE ONLY, ONCE, 1 dose, Starting on Sun04/23/23 at 1637, Until Sun04/23/23 at 1637 Given 04/23/2023 4:37 PM EDT 4 mL Reason for Referral Specialty Diagnoses / Procedures Referred By Contac t Referred To Contact [facility] Diagnoses Acute midline low back pain without sciatica Procedures CONSULT TO PHYSICAL THERAPY PHYSICAL THERAPY EVALUATION HIGH COMPLEX 45 MINS Gabbie Grady MD [address] [place] [address] [facility] [place] [address] [place] [address] Referral ID Status Reason Start Date Expiration Date Visits Requested Visits Authorized [id number] Authorized Auto-Generat ed Referral 07/09/2021 07/08/2022 30 30 Specialty Diagnoses / Procedures Referred By Contac t Referred To Contact XR IMAGING Diagnoses Acute midline low back pain without sciatica Procedures XR LUMBAR GENERAL 3V AP/LAT/L5-S1 RADEX SPINE LUMBOSACRAL 2/3 VIEWS Gabbie Grady MD [address] [place] [address] Xr Imaging Referral ID Status Reason Start Date Expiration Date V isits Requested Visits Authorized [id number] Closed Auto-Generate d Referral 10/19/2021 11/18/2022 1 1 Specialty Diagnoses / Procedures Referred By Contac t Referred To Contact Pain Management Diagnoses Acute midline low back pain without sciatica Fibromyalgia Procedures CONSULT TO PAIN MGT OFFICE/OUTPATIENT NEW HIGH MDM 60-74 MINUTES Gabbie Grady MD [address] [place] [address] Referral ID Status Reason Start Date Expiration Date Visits Requested Visits Authorized [id number] Authorized PCP Requested Referral 12/29/2021 12/29/2022 1 1 Specialty Diagnoses / Procedures Referred By Contac t Referred To Contact Orthopedics Diagnoses Puncture wound Acute right ankle pain Procedures CONSULT TO ORTHOPAEDICS OFFICE/OUTPATIENT [facility] 60-74 MINUTES Xochilt Fernandez APRN.[employer]OWER [address] [place] [address] Referral ID Status Reason Start Date Expiration Date Visits Requested Visits Authorized [id number] Authorized PCP Requested Referral 01/20/2022 01/20/2023 1 1 Specialty Diagnoses / Procedures Referred By Contac t Referred To Contact XR IMAGING Diagnoses Puncture wound Procedures XR TIBIA FIBULA 2V AP/LAT RIGHT RADIOLOGIC EXAMINATION TIBIA & FIBULA 2 VIEWS Xochilt Fernandez APRN.SHELLF[employer] GROWER [address] [id number] Xr Imaging Referral ID Status Reason Start Date Expiration Date V isits Requested Visits Authorized [id number] Closed Auto-Generate d Referral 01/20/2022 02/19/2023 1 1 Specialty Diagnoses / Procedures Referred By Contac t Referred To Contact XR IMAGING Diagnoses Acute right ankle pain Procedures XR ANKLE GENERAL 3V AP/LAT/OBL RIGHT RADEX ANKLE COMPLETE MINIMUM 3 VIEWS Xochilt Fernandez APRN.SHELLF[employer] GROWER [address] [place] [address] Xr Imaging Referral ID Status Reason Start Date Expiration Date V isits Requested Visits Authorized [id number] Closed Auto-Generate d Referral 01/20/2022 02/19/2023 1 1 Specialty Diagnoses / Procedures Referred By Contac t Referred To Contact General Surgery Diagnoses Right inguinal hernia Procedures CONSULT TO GENERAL SURGERY OFFICE/OUTPATIENT [facility] 60-74 MINUTES Gabbie Grady MD [address] [place] [address] Referral ID Status Reason Start Date Expiration Date Visits Requested Visits Authorized [id number] Pending Review PCP Requested Referral 05/17/2022 05/17/2023 1 1 Specialty Diagnoses / Procedures Referred By Contac t Referred To Contact General Surgery Diagnoses Bilateral recurrent inguinal hernia without obstruction or gangrene Procedures CONSULT TO GENERAL SURGERY Yoandy Leon MD [address] [place] [address] [place] [address] [place] [address] Referral ID Status Reason Start Date Expiration Date Visits Requested Visits Authorized [id number] Ref Not Required PCP Requested Referral 2 06/20/2023 1 1 Specialty Diagnoses / Procedures Referred By Contac t Referred To Contact CT IMAGING Diagnoses Encounter for screening for lung cancer Former tobacco use Procedures CT LUNG SCREEN WO IVCON COMPUTED TOMOGRAPHY THORAX LW DOSE LNG CA SCR Sohail- Jeimy Cortes APRN.SHELLFISH GROWER [address] [place] [address] Ct Imaging Referral ID Status Reason Start Date Expiration Date Visits Requested Visits Authorized [id number] Pending Review Auto-Generat ed Referral 11/10/2023 12/09/2023 1 1 Specialty Diagnoses / Procedures Referred By Contac t Referred To Contact Diagnoses Memory change Procedures CON[facility]ULT TO [facility] OFFICE/OUTPATIENT [facility] MDM 60-74 MINUTES Gabbie Grady MD [address] [place] [address] Referral ID Status Reason Start Date Expiration Date Visits Requested Visits Authorized [id number] Pending Review PCP Requested Referral 12/21/2022 12/21/2023 1 1 Specialty Diagnoses / Procedures Referred By Contac t Referred To Contact Diagnoses Cough Gabbie Grady MD [address] [place] [address] Referral ID Status Reason Start Date Expiration Date Visits Re quested Visits Authorized [id number] Closed 1 1 Specialty Diagnoses / Procedures Referred By Contac t Referred To Contact [facility]ic Clinic Diagnoses Mixed hyperlipidemia Statin intolerance Procedures CONSULT TO LIPID CLINIC OFFICE/OUTPATIENT [facility] MDM 60-74 MINUTES Aurora Hightower DO [address] [place] [address] Referral ID Status Reason Start Date Expiration Date Visits Requested Visits Authorized [id number] Pending Review PCP Requested Referral 01/04/2023 01/04/2024 1 1 Specialty Diagnoses / Procedures Referred By Contac t Referred To Contact [facility] Diagnoses Arterial fibromuscular dysplasia (HCC) Atherosclerosis Procedures US ARM ARTERIAL UNL VAS LAB DUP-SCAN UXTR ART/ARTL BPGS UNI/LMTD STUDY Hightower AuroraDO nahum [address] [place] [address] [facility] [place] [address] [place] [address] Referral ID Status Reason Start Date Expiration Date Visits Requested Visits Authorized [id number] Pending Review Auto-Generat ed Referral 01/04/2023 01/04/2024 1 1 Specialty Diagnoses / Procedures Referred By Contac t Referred To Contact MR IMAGING Diagnoses Biceps tendonitis on left Chronic left shoulder pain Procedures MRI SHOULDER WO IVCON LEFT MRI ANY JT UPPER EXTREMITY W/O CONTRAST Wilmar Garcia MD [address] [facility]. [facility] [address] [place] [address] Mr Imaging [facility] Referral ID Status Reason Start Date Expiration Date Visits Requested Visits Authorized [id number] Pending Review Auto-Generat ed Referral 10/30/2023 11/28/2024 1 1 Specialty Diagnoses / Procedures Referred By Contac t Referred To Contact [facility] Diagnoses S/P left rotator cuff repair Procedures PT REHAB FOLLOW UP ORDER THERAPEUTIC EXERCISES RE, EA 15 MIN. Kian Aceves, PT [address] [place] [address] [facility] [address] [address] Referral ID Status Reason Start Date Expiration Date Visits Requested Visits Authorized [id number] New Request PCP Requested Referral Auto-Generate d Referral 01/28/2024 04/27/2024 1 1 Specialty Diagnoses / Procedures Referred By Contac t Referred To Contact Nephrology Diagnoses Essential hypertension, benign Procedures CONSULT TO NEPHROLOGY OFFICE/OUTPATIENT NEW HIGH MDM 60 MINUTES Xochilt Fernandez, SOLIS.[employer]LLF[employer] GROWER [address] [place] [address] Referral ID Status Reason Start Date Expiration Date Visits Requested Visits Authorized [id number] Authorized PCP Requested Referral 4 04/28/2025 1 1 Specialty Diagnoses / Procedures Referred By Christina berry Referred To Contact CT IMAGING Diagnoses Personal history of tobacco use, presenting hazards to health Procedures CT LUNG SCREEN WO IVCON COMPUTED TOMOGRAPHY THORAX LW DOSE LNG CA SCR Sohail- Erum Duncan, ROUTE SALES DRIVER.[employer]OWER [phone] [place] [address] Referral ID Status Reason Start Date Expiration Date Visits Requested Visits Authorized [id number] New Request Auto-Generat ed Referral 08/11/2024 09/10/2025 1 1 Chief Complaint and Reason for Visit Chief Complaint 2 WK FU est care RUQ PAIN Reason for Visit Cholelithiasis Esophageal candidiasis Tubular adenoma of colon Fibromuscular dysplasia GCA (giant cell arteritis) Staghorn calculus HTN (hypertension) Type 2 diabetes mellitus Chief Complaint BILATERAL INGUINAL H ERNIAS/CHOLELITHIASIS FATTY LIVER, GALLSTONES Reason for Visit Bilateral inguinal h ernia without obstruction or gangrene Cholelithiasis GCA (giant cell arteritis) History of hysterectomy Hx of bladder repair surgery Reason for Visit Admit Date Tubular adenoma of colon September 29 9:56am Chief Complaint Admit Date LOOSE STOOLS/DIARRHEA SINCE COLONOSCOPY January 01, 2025 12:54pm Reason for Visit Admit Date Tubular adenoma of colon September 29 9:56am Diarrhea January 01, 2025 12:5 4pm Chief Complaint Admit Date LOOSE STOOLS/DIARRHEA SINCE COLONOSCOPY January 01, 2025 12:54pm E-ORDER January 07, 2025 9:27a m Reason for Visit Admit Date Tubular adenoma of colon September 29 9:56am Diarrhea January 01, 2025 12:5 4pm Fatty liver January 01, 2025 12:5 4pm Additional Source Comments INFORMATION SOURCE (unrecogn ized section and content) DATE CREATED AUTHOR 03/22/2019 [facility] ([place]) DATE CREATED AUTHOR AUTHOR'S ORGANIZ ATION 04/06/2020 [facility] DATE CREATED AUTHOR AUTHOR'S ORGANIZ ATION 08/31/2022 [facility] DATE CREATED AUTHOR AUTHOR'S ORGANIZ ATION 01/08/2024 [facility] DATE CREATED AUTHOR AUTHOR'S ORGANIZ ATION 04/17/2024 [facility] DATE CREATED AUTHOR AUTHOR'S ORGANIZ ATION 04/28/2024 [facility] DATE CREATED AUTHOR AUTHOR'S ORGANIZ ATION 05/10/2025 [facility] DATE CREATED AUTHOR AUTHOR'S ORGANIZ ATION 05/13/2025 [facility] Source Comments (unrecognize d section and content) In the event this informatio n is protected by the Federal Confidentiality of Alcohol and Drug Abuse Patient Records regulations: The Federal rules restrict any use of the information to criminally investigate or prosecute any alcohol or drug abuse patient.[facility] CenterIn the event this information is protected by the Federal Confidentiality of Alcohol and Drug Abuse Patient Records regulations: The Federal rules restrict any use of the information to criminally investigate or prosecute any alcohol or drug abuse patient.[facility] CenterIn the event this information is protected by the Federal Confidentiality of Alcohol and Drug Abuse Patient Records regulations: The Federal rules restrict any use of the information to criminally investigate or prosecute any alcohol or drug abuse patient.[facility] CenterIn the event this information is protected by the Federal Confidentiality of Alcohol and Drug Abuse Patient Records regulations: The Federal rules restrict any use of the information to criminally investigate or prosecute any alcohol or drug abuse patient.[facility] CenterIn the event this information is protected by the Federal Confidentiality of Alcohol and Drug Abuse Patient Records regulations: The Federal rules restrict any use of the information to criminally investigate or prosecute any alcohol or drug abuse patient.[facility] CenterIn the event this information is protected by the Federal Confidentiality of Alcohol and Drug Abuse Patient Records regulations: The Federal rules restrict any use of the information to criminally investigate or prosecute any alcohol or drug abuse patient.[facility] CenterIn the event this information is protected by the Federal Confidentiality of Alcohol and Drug Abuse Patient Records regulations: The Federal rules restrict any use of the information to criminally investigate or prosecute any alcohol or drug abuse patient.[facility] CenterIn the event this information is protected by the Federal Confidentiality of Alcohol and Drug Abuse Patient Records regulations: The Federal rules restrict any use of the information to criminally investigate or prosecute any alcohol or drug abuse patient.[facility] CenterIn the event this information is protected by the Federal Confidentiality of Alcohol and Drug Abuse Patient Records regulations: The Federal rules restrict any use of the information to criminally investigate or prosecute any alcohol or drug abuse patient.[facility] CenterIn the event this information is protected by the Federal Confidentiality of Alcohol and Drug Abuse Patient Records regulations: The Federal rules restrict any use of the information to criminally investigate or prosecute any alcohol or drug abuse patient.[facility] CenterIn the event this information is protected by the Federal Confidentiality of Alcohol and Drug Abuse Patient Records regulations: The Federal rules restrict any use of the information to criminally investigate or prosecute any alcohol or drug abuse patient.[facility] CenterIn the event this information is protected by the Federal Confidentiality of Alcohol and Drug Abuse Patient Records regulations: The Federal rules restrict any use of the information to criminally investigate or prosecute any alcohol or drug abuse patient.[facility] CenterIn the event this information is protected by the Federal Confidentiality of Alcohol and Drug Abuse Patient Records regulations: The Federal rules restrict any use of the information to criminally investigate or prosecute any alcohol or drug abuse patient.[facility] CenterIn the event this information is protected by the Federal Confidentiality of Alcohol and Drug Abuse Patient Records regulations: The Federal rules restrict any use of the information to criminally investigate or prosecute any alcohol or drug abuse patient.[facility] CenterIn the event this information is protected by the Federal Confidentiality of Alcohol and Drug Abuse Patient Records regulations: The Federal rules restrict any use of the information to criminally investigate or prosecute any alcohol or drug abuse patient.[facility] CenterIn the event this information is protected by the Federal Confidentiality of Alcohol and Drug Abuse Patient Records regulations: The Federal rules restrict any use of the information to criminally investigate or prosecute any alcohol or drug abuse patient.[facility] CenterIn the event this information is protected by the Federal Confidentiality of Alcohol and Drug Abuse Patient Records regulations: The Federal rules restrict any use of the information to criminally investigate or prosecute any alcohol or drug abuse patient.[facility] CenterIn the event this information is protected by the Federal Confidentiality of Alcohol and Drug Abuse Patient Records regulations: The Federal rules restrict any use of the information to criminally investigate or prosecute any alcohol or drug abuse patient.[facility] CenterIn the event this information is protected by the Federal Confidentiality of Alcohol and Drug Abuse Patient Records regulations: The Federal rules restrict any use of the information to criminally investigate or prosecute any alcohol or drug abuse patient.[facility] CenterIn the event this information is protected by the Federal Confidentiality of Alcohol and Drug Abuse Patient Records regulations: The Federal rules restrict any use of the information to criminally investigate or prosecute any alcohol or drug abuse patient.[facility] CenterIn the event this information is protected by the Federal Confidentiality of Alcohol and Drug Abuse Patient Records regulations: The Federal rules restrict any use of the information to criminally investigate or prosecute any alcohol or drug abuse patient.[facility] CenterIn the event this information is protected by the Federal Confidentiality of Alcohol and Drug Abuse Patient Records regulations: The Federal rules restrict any use of the information to criminally investigate or prosecute any alcohol or drug abuse patient.[facility] CenterIn the event this information is protected by the Federal Confidentiality of Alcohol and Drug Abuse Patient Records regulations: The Federal rules restrict any use of the information to criminally investigate or prosecute any alcohol or drug abuse patient.[facility] CenterIn the event this information is protected by the Federal Confidentiality of Alcohol and Drug Abuse Patient Records regulations: The Federal rules restrict any use of the information to criminally investigate or prosecute any alcohol or drug abuse patient.[facility] CenterIn the event this information is protected by the Federal Confidentiality of Alcohol and Drug Abuse Patient Records regulations: The Federal rules restrict any use of the information to criminally investigate or prosecute any alcohol or drug abuse patient.[facility] CenterIn the event this information is protected by the Federal Confidentiality of Alcohol and Drug Abuse Patient Records regulations: The Federal rules restrict any use of the information to criminally investigate or prosecute any alcohol or drug abuse patient.[facility] CenterIn the event this information is protected by the Federal Confidentiality of Alcohol and Drug Abuse Patient Records regulations: The Federal rules restrict any use of the information to criminally investigate or prosecute any alcohol or drug abuse patient.[facility] CenterIn the event this information is protected by the Federal Confidentiality of Alcohol and Drug Abuse Patient Records regulations: The Federal rules restrict any use of the information to criminally investigate or prosecute any alcohol or drug abuse patient.[facility] CenterIn the event this information is protected by the Federal Confidentiality of Alcohol and Drug Abuse Patient Records regulations: The Federal rules restrict any use of the information to criminally investigate or prosecute any alcohol or drug abuse patient.[facility] CenterIn the event this information is protected by the Federal Confidentiality of Alcohol and Drug Abuse Patient Records regulations: The Federal rules restrict any use of the information to criminally investigate or prosecute any alcohol or drug abuse patient.[facility] CenterIn the event this information is protected by the Federal Confidentiality of Alcohol and Drug Abuse Patient Records regulations: The Federal rules restrict any use of the information to criminally investigate or prosecute any alcohol or drug abuse patient.[facility] CenterIn the event this information is protected by the Federal Confidentiality of Alcohol and Drug Abuse Patient Records regulations: The Federal rules restrict any use of the information to criminally investigate or prosecute any alcohol or drug abuse patient.[facility] CenterIn the event this information is protected by the Federal Confidentiality of Alcohol and Drug Abuse Patient Records regulations: The Federal rules restrict any use of the information to criminally investigate or prosecute any alcohol or drug abuse patient.[facility] CenterIn the event this information is protected by the Federal Confidentiality of Alcohol and Drug Abuse Patient Records regulations: The Federal rules restrict any use of the information to criminally investigate or prosecute any alcohol or drug abuse patient.[facility] CenterIn the event this information is protected by the Federal Confidentiality of Alcohol and Drug Abuse Patient Records regulations: The Federal rules restrict any use of the information to criminally investigate or prosecute any alcohol or drug abuse patient.[facility] CenterIn the event this information is protected by the Federal Confidentiality of Alcohol and Drug Abuse Patient Records regulations: The Federal rules restrict any use of the information to criminally investigate or prosecute any alcohol or drug abuse patient.[facility] CenterIn the event this information is protected by the Federal Confidentiality of Alcohol and Drug Abuse Patient Records regulations: The Federal rules restrict any use of the information to criminally investigate or prosecute any alcohol or drug abuse patient.[facility] CenterIn the event this information is protected by the Federal Confidentiality of Alcohol and Drug Abuse Patient Records regulations: The Federal rules restrict any use of the information to criminally investigate or prosecute any alcohol or drug abuse patient.[facility] CenterIn the event this information is protected by the Federal Confidentiality of Alcohol and Drug Abuse Patient Records regulations: The Federal rules restrict any use of the information to criminally investigate or prosecute any alcohol or drug abuse patient.[facility] CenterIn the event this information is protected by the Federal Confidentiality of Alcohol and Drug Abuse Patient Records regulations: The Federal rules restrict any use of the information to criminally investigate or prosecute any alcohol or drug abuse patient.[facility] CenterIn the event this information is protected by the Federal Confidentiality of Alcohol and Drug Abuse Patient Records regulations: The Federal rules restrict any use of the information to criminally investigate or prosecute any alcohol or drug abuse patient.[facility] CenterIn the event this information is protected by the Federal Confidentiality of Alcohol and Drug Abuse Patient Records regulations: The Federal rules restrict any use of the information to criminally investigate or prosecute any alcohol or drug abuse patient.[facility] CenterIn the event this information is protected by the Federal Confidentiality of Alcohol and Drug Abuse Patient Records regulations: The Federal rules restrict any use of the information to criminally investigate or prosecute any alcohol or drug abuse patient.[facility] CenterIn the event this information is protected by the Federal Confidentiality of Alcohol and Drug Abuse Patient Records regulations: The Federal rules restrict any use of the information to criminally investigate or prosecute any alcohol or drug abuse patient.[facility] CenterIn the event this information is protected by the Federal Confidentiality of Alcohol and Drug Abuse Patient Records regulations: The Federal rules restrict any use of the information to criminally investigate or prosecute any alcohol or drug abuse patient.[facility] CenterIn the event this information is protected by the Federal Confidentiality of Alcohol and Drug Abuse Patient Records regulations: The Federal rules restrict any use of the information to criminally investigate or prosecute any alcohol or drug abuse patient.[facility] CenterIn the event this information is protected by the Federal Confidentiality of Alcohol and Drug Abuse Patient Records regulations: The Federal rules restrict any use of the information to criminally investigate or prosecute any alcohol or drug abuse patient.[facility] CenterIn the event this information is protected by the Federal Confidentiality of Alcohol and Drug Abuse Patient Records regulations: The Federal rules restrict any use of the information to criminally investigate or prosecute any alcohol or drug abuse patient.[facility] CenterIn the event this information is protected by the Federal Confidentiality of Alcohol and Drug Abuse Patient Records regulations: The Federal rules restrict any use of the information to criminally investigate or prosecute any alcohol or drug abuse patient.[facility] CenterIn the event this information is protected by the Federal Confidentiality of Alcohol and Drug Abuse Patient Records regulations: The Federal rules restrict any use of the information to criminally investigate or prosecute any alcohol or drug abuse patient.[facility] CenterIn the event this information is protected by the Federal Confidentiality of Alcohol and Drug Abuse Patient Records regulations: The Federal rules restrict any use of the information to criminally investigate or prosecute any alcohol or drug abuse patient.[facility] CenterIn the event this information is protected by the Federal Confidentiality of Alcohol and Drug Abuse Patient Records regulations: The Federal rules restrict any use of the information to criminally investigate or prosecute any alcohol or drug abuse patient.[facility] CenterIn the event this information is protected by the Federal Confidentiality of Alcohol and Drug Abuse Patient Records regulations: The Federal rules restrict any use of the information to criminally investigate or prosecute any alcohol or drug abuse patient.[facility] CenterIn the event this information is protected by the Federal Confidentiality of Alcohol and Drug Abuse Patient Records regulations: The Federal rules restrict any use of the information to criminally investigate or prosecute any alcohol or drug abuse patient.[facility] CenterIn the event this information is protected by the Federal Confidentiality of Alcohol and Drug Abuse Patient Records regulations: The Federal rules restrict any use of the information to criminally investigate or prosecute any alcohol or drug abuse patient.[facility] CenterIn the event this information is protected by the Federal Confidentiality of Alcohol and Drug Abuse Patient Records regulations: The Federal rules restrict any use of the information to criminally investigate or prosecute any alcohol or drug abuse patient.[facility] CenterIn the event this information is protected by the Federal Confidentiality of Alcohol and Drug Abuse Patient Records regulations: The Federal rules restrict any use of the information to criminally investigate or prosecute any alcohol or drug abuse patient.[facility] CenterIn the event this information is protected by the Federal Confidentiality of Alcohol and Drug Abuse Patient Records regulations: The Federal rules restrict any use of the information to criminally investigate or prosecute any alcohol or drug abuse patient.[facility] CenterIn the event this information is protected by the Federal Confidentiality of Alcohol and Drug Abuse Patient Records regulations: The Federal rules restrict any use of the information to criminally investigate or prosecute any alcohol or drug abuse patient.[facility] CenterIn the event this information is protected by the Federal Confidentiality of Alcohol and Drug Abuse Patient Records regulations: The Federal rules restrict any use of the information to criminally investigate or prosecute any alcohol or drug abuse patient.[facility] CenterIn the event this information is protected by the Federal Confidentiality of Alcohol and Drug Abuse Patient Records regulations: The Federal rules restrict any use of the information to criminally investigate or prosecute any alcohol or drug abuse patient.[facility] CenterIn the event this information is protected by the Federal Confidentiality of Alcohol and Drug Abuse Patient Records regulations: The Federal rules restrict any use of the information to criminally investigate or prosecute any alcohol or drug abuse patient.[facility] CenterIn the event this information is protected by the Federal Confidentiality of Alcohol and Drug Abuse Patient Records regulations: The Federal rules restrict any use of the information to criminally investigate or prosecute any alcohol or drug abuse patient.[facility] CenterIn the event this information is protected by the Federal Confidentiality of Alcohol and Drug Abuse Patient Records regulations: The Federal rules restrict any use of the information to criminally investigate or prosecute any alcohol or drug abuse patient.[facility] CenterIn the event this information is protected by the Federal Confidentiality of Alcohol and Drug Abuse Patient Records regulations: The Federal rules restrict any use of the information to criminally investigate or prosecute any alcohol or drug abuse patient.[facility] CenterIn the event this information is protected by the Federal Confidentiality of Alcohol and Drug Abuse Patient Records regulations: The Federal rules restrict any use of the information to criminally investigate or prosecute any alcohol or drug abuse patient.[facility] CenterIn the event this information is protected by the Federal Confidentiality of Alcohol and Drug Abuse Patient Records regulations: The Federal rules restrict any use of the information to criminally investigate or prosecute any alcohol or drug abuse patient.[facility] CenterIn the event this information is protected by the Federal Confidentiality of Alcohol and Drug Abuse Patient Records regulations: The Federal rules restrict any use of the information to criminally investigate or prosecute any alcohol or drug abuse patient.[facility] CenterIn the event this information is protected by the Federal Confidentiality of Alcohol and Drug Abuse Patient Records regulations: The Federal rules restrict any use of the information to criminally investigate or prosecute any alcohol or drug abuse patient.[facility] CenterIn the event this information is protected by the Federal Confidentiality of Alcohol and Drug Abuse Patient Records regulations: The Federal rules restrict any use of the information to criminally investigate or prosecute any alcohol or drug abuse patient.[facility] CenterIn the event this information is protected by the Federal Confidentiality of Alcohol and Drug Abuse Patient Records regulations: The Federal rules restrict any use of the information to criminally investigate or prosecute any alcohol or drug abuse patient.[facility] CenterIn the event this information is protected by the Federal Confidentiality of Alcohol and Drug Abuse Patient Records regulations: The Federal rules restrict any use of the information to criminally investigate or prosecute any alcohol or drug abuse patient.[facility] CenterIn the event this information is protected by the Federal Confidentiality of Alcohol and Drug Abuse Patient Records regulations: The Federal rules restrict any use of the information to criminally investigate or prosecute any alcohol or drug abuse patient.[facility] CenterIn the event this information is protected by the Federal Confidentiality of Alcohol and Drug Abuse Patient Records regulations: The Federal rules restrict any use of the information to criminally investigate or prosecute any alcohol or drug abuse patient.[facility] CenterIn the event this information is protected by the Federal Confidentiality of Alcohol and Drug Abuse Patient Records regulations: The Federal rules restrict any use of the information to criminally investigate or prosecute any alcohol or drug abuse patient.[facility] CenterIn the event this information is protected by the Federal Confidentiality of Alcohol and Drug Abuse Patient Records regulations: The Federal rules restrict any use of the information to criminally investigate or prosecute any alcohol or drug abuse patient.[facility] CenterIn the event this information is protected by the Federal Confidentiality of Alcohol and Drug Abuse Patient Records regulations: The Federal rules restrict any use of the information to criminally investigate or prosecute any alcohol or drug abuse patient.[facility] CenterIn the event this information is protected by the Federal Confidentiality of Alcohol and Drug Abuse Patient Records regulations: The Federal rules restrict any use of the information to criminally investigate or prosecute any alcohol or drug abuse patient.[facility] CenterIn the event this information is protected by the Federal Confidentiality of Alcohol and Drug Abuse Patient Records regulations: The Federal rules restrict any use of the information to criminally investigate or prosecute any alcohol or drug abuse patient.[facility] CenterIn the event this information is protected by the Federal Confidentiality of Alcohol and Drug Abuse Patient Records regulations: The Federal rules restrict any use of the information to criminally investigate or prosecute any alcohol or drug abuse patient.[facility] CenterIn the event this information is protected by the Federal Confidentiality of Alcohol and Drug Abuse Patient Records regulations: The Federal rules restrict any use of the information to criminally investigate or prosecute any alcohol or drug abuse patient.[facility] CenterIn the event this information is protected by the Federal Confidentiality of Alcohol and Drug Abuse Patient Records regulations: The Federal rules restrict any use of the information to criminally investigate or prosecute any alcohol or drug abuse patient.[facility] CenterIn the event this information is protected by the Federal Confidentiality of Alcohol and Drug Abuse Patient Records regulations: The Federal rules restrict any use of the information to criminally investigate or prosecute any alcohol or drug abuse patient.[facility] CenterIn the event this information is protected by the Federal Confidentiality of Alcohol and Drug Abuse Patient Records regulations: The Federal rules restrict any use of the information to criminally investigate or prosecute any alcohol or drug abuse patient.[facility] CenterIn the event this information is protected by the Federal Confidentiality of Alcohol and Drug Abuse Patient Records regulations: The Federal rules restrict any use of the information to criminally investigate or prosecute any alcohol or drug abuse patient.[facility] CenterIn the event this information is protected by the Federal Confidentiality of Alcohol and Drug Abuse Patient Records regulations: The Federal rules restrict any use of the information to criminally investigate or prosecute any alcohol or drug abuse patient.[facility] CenterIn the event this information is protected by the Federal Confidentiality of Alcohol and Drug Abuse Patient Records regulations: The Federal rules restrict any use of the information to criminally investigate or prosecute any alcohol or drug abuse patient.[facility] CenterIn the event this information is protected by the Federal Confidentiality of Alcohol and Drug Abuse Patient Records regulations: The Federal rules restrict any use of the information to criminally investigate or prosecute any alcohol or drug abuse patient.[facility] CenterIn the event this information is protected by the Federal Confidentiality of Alcohol and Drug Abuse Patient Records regulations: The Federal rules restrict any use of the information to criminally investigate or prosecute any alcohol or drug abuse patient.[facility] CenterIn the event this information is protected by the Federal Confidentiality of Alcohol and Drug Abuse Patient Records regulations: The Federal rules restrict any use of the information to criminally investigate or prosecute any alcohol or drug abuse patient.[facility] CenterIn the event this information is protected by the Federal Confidentiality of Alcohol and Drug Abuse Patient Records regulations: The Federal rules restrict any use of the information to criminally investigate or prosecute any alcohol or drug abuse patient.[facility] CenterIn the event this information is protected by the Federal Confidentiality of Alcohol and Drug Abuse Patient Records regulations: The Federal rules restrict any use of the information to criminally investigate or prosecute any alcohol or drug abuse patient.[facility] CenterIn the event this information is protected by the Federal Confidentiality of Alcohol and Drug Abuse Patient Records regulations: The Federal rules restrict any use of the information to criminally investigate or prosecute any alcohol or drug abuse patient.[facility] CenterIn the event this information is protected by the Federal Confidentiality of Alcohol and Drug Abuse Patient Records regulations: The Federal rules restrict any use of the information to criminally investigate or prosecute any alcohol or drug abuse patient.[facility] CenterIn the event this information is protected by the Federal Confidentiality of Alcohol and Drug Abuse Patient Records regulations: The Federal rules restrict any use of the information to criminally investigate or prosecute any alcohol or drug abuse patient.[facility] CenterIn the event this information is protected by the Federal Confidentiality of Alcohol and Drug Abuse Patient Records regulations: The Federal rules restrict any use of the information to criminally investigate or prosecute any alcohol or drug abuse patient.[facility] CenterIn the event this information is protected by the Federal Confidentiality of Alcohol and Drug Abuse Patient Records regulations: The Federal rules restrict any use of the information to criminally investigate or prosecute any alcohol or drug abuse patient.[facility] CenterIn the event this information is protected by the Federal Confidentiality of Alcohol and Drug Abuse Patient Records regulations: The Federal rules restrict any use of the information to criminally investigate or prosecute any alcohol or drug abuse patient.[facility] CenterIn the event this information is protected by the Federal Confidentiality of Alcohol and Drug Abuse Patient Records regulations: The Federal rules restrict any use of the information to criminally investigate or prosecute any alcohol or drug abuse patient.[facility] CenterIn the event this information is protected by the Federal Confidentiality of Alcohol and Drug Abuse Patient Records regulations: The Federal rules restrict any use of the information to criminally investigate or prosecute any alcohol or drug abuse patient.[facility] CenterIn the event this information is protected by the Federal Confidentiality of Alcohol and Drug Abuse Patient Records regulations: The Federal rules restrict any use of the information to criminally investigate or prosecute any alcohol or drug abuse patient.[facility] CenterIn the event this information is protected by the Federal Confidentiality of Alcohol and Drug Abuse Patient Records regulations: The Federal rules restrict any use of the information to criminally investigate or prosecute any alcohol or drug abuse patient.[facility] CenterIn the event this information is protected by the Federal Confidentiality of Alcohol and Drug Abuse Patient Records regulations: The Federal rules restrict any use of the information to criminally investigate or prosecute any alcohol or drug abuse patient.[facility] CenterIn the event this information is protected by the Federal Confidentiality of Alcohol and Drug Abuse Patient Records regulations: The Federal rules restrict any use of the information to criminally investigate or prosecute any alcohol or drug abuse patient.[facility] CenterIn the event this information is protected by the Federal Confidentiality of Alcohol and Drug Abuse Patient Records regulations: The Federal rules restrict any use of the information to criminally investigate or prosecute any alcohol or drug abuse patient.[facility] CenterIn the event this information is protected by the Federal Confidentiality of Alcohol and Drug Abuse Patient Records regulations: The Federal rules restrict any use of the information to criminally investigate or prosecute any alcohol or drug abuse patient.[facility] CenterIn the event this information is protected by the Federal Confidentiality of Alcohol and Drug Abuse Patient Records regulations: The Federal rules restrict any use of the information to criminally investigate or prosecute any alcohol or drug abuse patient.[facility] CenterIn the event this information is protected by the Federal Confidentiality of Alcohol and Drug Abuse Patient Records regulations: The Federal rules restrict any use of the information to criminally investigate or prosecute any alcohol or drug abuse patient.[facility] CenterIn the event this information is protected by the Federal Confidentiality of Alcohol and Drug Abuse Patient Records regulations: The Federal rules restrict any use of the information to criminally investigate or prosecute any alcohol or drug abuse patient.[facility] CenterIn the event this information is protected by the Federal Confidentiality of Alcohol and Drug Abuse Patient Records regulations: The Federal rules restrict any use of the information to criminally investigate or prosecute any alcohol or drug abuse patient.[facility] CenterIn the event this information is protected by the Federal Confidentiality of Alcohol and Drug Abuse Patient Records regulations: The Federal rules restrict any use of the information to criminally investigate or prosecute any alcohol or drug abuse patient.[facility] CenterIn the event this information is protected by the Federal Confidentiality of Alcohol and Drug Abuse Patient Records regulations: The Federal rules restrict any use of the information to criminally investigate or prosecute any alcohol or drug abuse patient.[facility] CenterIn the event this information is protected by the Federal Confidentiality of Alcohol and Drug Abuse Patient Records regulations: The Federal rules restrict any use of the information to criminally investigate or prosecute any alcohol or drug abuse patient.[facility] CenterIn the event this information is protected by the Federal Confidentiality of Alcohol and Drug Abuse Patient Records regulations: The Federal rules restrict any use of the information to criminally investigate or prosecute any alcohol or drug abuse patient.[facility] CenterIn the event this information is protected by the Federal Confidentiality of Alcohol and Drug Abuse Patient Records regulations: The Federal rules restrict any use of the information to criminally investigate or prosecute any alcohol or drug abuse patient.[facility] CenterIn the event this information is protected by the Federal Confidentiality of Alcohol and Drug Abuse Patient Records regulations: The Federal rules restrict any use of the information to criminally investigate or prosecute any alcohol or drug abuse patient.[facility] CenterIn the event this information is protected by the Federal Confidentiality of Alcohol and Drug Abuse Patient Records regulations: The Federal rules restrict any use of the information to criminally investigate or prosecute any alcohol or drug abuse patient.[facility] CenterIn the event this information is protected by the Federal Confidentiality of Alcohol and Drug Abuse Patient Records regulations: The Federal rules restrict any use of the information to criminally investigate or prosecute any alcohol or drug abuse patient.[facility] CenterIn the event this information is protected by the Federal Confidentiality of Alcohol and Drug Abuse Patient Records regulations: The Federal rules restrict any use of the information to criminally investigate or prosecute any alcohol or drug abuse patient.[facility] CenterIn the event this information is protected by the Federal Confidentiality of Alcohol and Drug Abuse Patient Records regulations: The Federal rules restrict any use of the information to criminally investigate or prosecute any alcohol or drug abuse patient.[facility] CenterIn the event this information is protected by the Federal Confidentiality of Alcohol and Drug Abuse Patient Records regulations: The Federal rules restrict any use of the information to criminally investigate or prosecute any alcohol or drug abuse patient.[facility] CenterIn the event this information is protected by the Federal Confidentiality of Alcohol and Drug Abuse Patient Records regulations: The Federal rules restrict any use of the information to criminally investigate or prosecute any alcohol or drug abuse patient.[facility] CenterIn the event this information is protected by the Federal Confidentiality of Alcohol and Drug Abuse Patient Records regulations: The Federal rules restrict any use of the information to criminally investigate or prosecute any alcohol or drug abuse patient.[facility] CenterIn the event this information is protected by the Federal Confidentiality of Alcohol and Drug Abuse Patient Records regulations: The Federal rules restrict any use of the information to criminally investigate or prosecute any alcohol or drug abuse patient.[facility] CenterIn the event this information is protected by the Federal Confidentiality of Alcohol and Drug Abuse Patient Records regulations: The Federal rules restrict any use of the information to criminally investigate or prosecute any alcohol or drug abuse patient.[facility] CenterIn the event this information is protected by the Federal Confidentiality of Alcohol and Drug Abuse Patient Records regulations: The Federal rules restrict any use of the information to criminally investigate or prosecute any alcohol or drug abuse patient.[facility] CenterIn the event this information is protected by the Federal Confidentiality of Alcohol and Drug Abuse Patient Records regulations: The Federal rules restrict any use of the information to criminally investigate or prosecute any alcohol or drug abuse patient.[facility] CenterIn the event this information is protected by the Federal Confidentiality of Alcohol and Drug Abuse Patient Records regulations: The Federal rules restrict any use of the information to criminally investigate or prosecute any alcohol or drug abuse patient.[facility] CenterIn the event this information is protected by the Federal Confidentiality of Alcohol and Drug Abuse Patient Records regulations: The Federal rules restrict any use of the information to criminally investigate or prosecute any alcohol or drug abuse patient.[facility] CenterIn the event this information is protected by the Federal Confidentiality of Alcohol and Drug Abuse Patient Records regulations: The Federal rules restrict any use of the information to criminally investigate or prosecute any alcohol or drug abuse patient.[facility] CenterIn the event this information is protected by the Federal Confidentiality of Alcohol and Drug Abuse Patient Records regulations: The Federal rules restrict any use of the information to criminally investigate or prosecute any alcohol or drug abuse patient.[facility] CenterIn the event this information is protected by the Federal Confidentiality of Alcohol and Drug Abuse Patient Records regulations: The Federal rules restrict any use of the information to criminally investigate or prosecute any alcohol or drug abuse patient.[facility] CenterIn the event this information is protected by the Federal Confidentiality of Alcohol and Drug Abuse Patient Records regulations: The Federal rules restrict any use of the information to criminally investigate or prosecute any alcohol or drug abuse patient.[facility] CenterIn the event this information is protected by the Federal Confidentiality of Alcohol and Drug Abuse Patient Records regulations: The Federal rules restrict any use of the information to criminally investigate or prosecute any alcohol or drug abuse patient.[facility] CenterIn the event this information is protected by the Federal Confidentiality of Alcohol and Drug Abuse Patient Records regulations: The Federal rules restrict any use of the information to criminally investigate or prosecute any alcohol or drug abuse patient.[facility] CenterIn the event this information is protected by the Federal Confidentiality of Alcohol and Drug Abuse Patient Records regulations: The Federal rules restrict any use of the information to criminally investigate or prosecute any alcohol or drug abuse patient.[facility] CenterIn the event this information is protected by the Federal Confidentiality of Alcohol and Drug Abuse Patient Records regulations: The Federal rules restrict any use of the information to criminally investigate or prosecute any alcohol or drug abuse patient.[facility] CenterIn the event this information is protected by the Federal Confidentiality of Alcohol and Drug Abuse Patient Records regulations: The Federal rules restrict any use of the information to criminally investigate or prosecute any alcohol or drug abuse patient.[facility] CenterIn the event this information is protected by the Federal Confidentiality of Alcohol and Drug Abuse Patient Records regulations: The Federal rules restrict any use of the information to criminally investigate or prosecute any alcohol or drug abuse patient.[facility] CenterIn the event this information is protected by the Federal Confidentiality of Alcohol and Drug Abuse Patient Records regulations: The Federal rules restrict any use of the information to criminally investigate or prosecute any alcohol or drug abuse patient.[facility] CenterIn the event this information is protected by the Federal Confidentiality of Alcohol and Drug Abuse Patient Records regulations: The Federal rules restrict any use of the information to criminally investigate or prosecute any alcohol or drug abuse patient.[facility] CenterIn the event this information is protected by the Federal Confidentiality of Alcohol and Drug Abuse Patient Records regulations: The Federal rules restrict any use of the information to criminally investigate or prosecute any alcohol or drug abuse patient.[facility] CenterIn the event this information is protected by the Federal Confidentiality of Alcohol and Drug Abuse Patient Records regulations: The Federal rules restrict any use of the information to criminally investigate or prosecute any alcohol or drug abuse patient.[facility] CenterIn the event this information is protected by the Federal Confidentiality of Alcohol and Drug Abuse Patient Records regulations: The Federal rules restrict any use of the information to criminally investigate or prosecute any alcohol or drug abuse patient.[facility] CenterIn the event this information is protected by the Federal Confidentiality of Alcohol and Drug Abuse Patient Records regulations: The Federal rules restrict any use of the information to criminally investigate or prosecute any alcohol or drug abuse patient.[facility] CenterIn the event this information is protected by the Federal Confidentiality of Alcohol and Drug Abuse Patient Records regulations: The Federal rules restrict any use of the information to criminally investigate or prosecute any alcohol or drug abuse patient.[facility] CenterIn the event this information is protected by the Federal Confidentiality of Alcohol and Drug Abuse Patient Records regulations: The Federal rules restrict any use of the information to criminally investigate or prosecute any alcohol or drug abuse patient.[facility] Reason for Visit (unrecogniz ed section and content) Reason Comments PT Discharge Specialty Diagnoses / Procedures Referred By Contac t Referred To Contact PHYSICAL THERAPY Diagnoses S/P left rotator cuff repair Procedures PT REHAB FOLLOW UP ORDER THERAPEUTIC EXERCISES RE, EA 15 MIN. Kian Aceves PT [address] [place] [address] Pt [facility] [address] [place] [address] Referral ID Status Reason Start Date Expiration Date V isits Requested Visits Authorized [id number] Closed PCP Requested Referral Auto-Generated Referral 03/12/2024 06/08/2024 8 8 Reason Comments PT Progress Note Specialty Diagnoses / Procedures Referred By Contac t Referred To Contact [facility] Diagnoses S/P left rotator cuff repair Procedures PT REHAB FOLLOW UP ORDER THERAPEUTIC EXERCISES RE, EA 15 MIN. Kian Aceves PT [address] [place] [address] [facility] [place] [address] [place] [address] Referral ID Status Reason Start Date Expiration Date Visits Requested Visits Authorized [id number] Authorized PCP Requested Referral Auto-Generate d Referral 03/12/2024 06/08/2024 8 8 Reason Comments Physical Therapy Specialty Diagnoses / Procedures Referred By Contac t Referred To Contact [facility] Diagnoses S/P left rotator cuff repair Procedures PT REHAB FOLLOW UP ORDER THERAPEUTIC EXERCISES RE, EA 15 MIN. Vito Contreras PA-C [address] [place] [address] [facility] [address] [address] Referral ID Status Reason Start Date Expiration Date Visits Requested Visits Authorized [id number] Authorized PCP Requested Referral Auto-Generate d Referral 01/29/2024 04/07/2024 6 6 Referral ID Status Reason Start Date Expiration Date Visits Requested Visits Authorized [id number] Authorized PCP Requested Referral Auto-Generate d Referral 01/29/2024 04/07/2024 24 24 Specialty Diagnoses / Procedures Referred By Contac t Referred To Contact [facility] Diagnoses Acute midline low back pain without sciatica Procedures CONSULT TO PHYSICAL THERAPY PHYSICAL THERAPY EVALUATION [facility] COM[facility] 45 MINS Gabbie Grady MD [address] [place] [address] [place] [id number] Referral ID Status Reason Start Date Expiration Date Visits Requested Visits Authorized [id number] Authorized Auto-Generat ed Referral 07/09/2021 07/08/2022 30 30 Reason Comments Returning Patient's Call Reason Comments 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 Temporal Arteritis Specialty Diagnoses / Procedures [facility] Op[facility] Diagnoses Giant cell arteritis (HCC) Glaucoma, steroid induced Procedures CONSULT TO OPHTHALMOLOGY OFFICE/OUTPATIENT [facility] 60-74 MINUTES Jess Vásquez MD [address] [place] [address] Referral ID Status Reason Start Date Expiration Date V isits Requested Visits Authorized [id number] Closed PCP Requested Referral 09/11/2021 09/11/2022 1 1 Reason Onset Date Comments Refill Request 10/28/2021 Reason Onset Date Comments Refill Request 11/09/2021 Reason Comments Follow Up Established Patient Nail Check Reason Onset Date Comments Refill Request 11/16/2021 Reason Onset Date Comments Refill Request 11/28/2021 Reason Onset Date Comments Refill Request 11/30/2021 Reason Onset Date Comments Refill Request 12/07/2021 Reason Onset Date Comments Refill Request 12/20/2021 Reason Comments F/U 3 Month Reason Comments Patient Question Reason Comments puncture wound to leg Reason Comments Acute Visit right leg. injury ER follow Reason Comments Results Xray Reason Comments Established Patient Pain Reason Onset Date Comments Refill Request 04/23/2022 Reason Comments Acute Visit BP problems Reason Comments Referral Request Reason Onset Date Comments Refill Request 05/22/2022 Reason Comments Consult Bilateral inguinal h ernia Reason Comments Follow Up Reason Comments Education Of Patient/family Reason Comments New Patient Inguinal Hernia Reason Onset Date Comments Refill Request 08/07/2022 Reason Comments Order request Refill Request Reason Comments Anesthesia Consult Reason Onset Date Comments Research 08/29/2022 Reason Comments 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 No injury noted. Nail care and foot exam Pain Medial foot pain and swelling ongoing 2 weeks. No injury noted. Nail care and foot exam Established Patient Nail care and foot e xam Reason Comments Established Patient 18 weeks post L shou lder impingement syndrome with injection given. Would like another injection Pain 18 weeks post L shou lder impingement syndrome with injection given. Would like another injection Injections 18 weeks post L shou lder impingement syndrome with injection given. Would like another injection Reason Onset Date Comments Refill Request 04/23/2023 Reason Comments Established Patient Injections Reason Comments Patient Request Reason Onset Date Comments Refill Request 06/02/2023 Reason Onset Date Comments Refill Request 08/29/2023 Reason Onset Date Comments Refill Request 09/24/2023 Reason Onset Date Comments Refill Request 10/29/2023 Reason Comments Established Patient Reason Onset Date Comments Refill Request 11/03/2023 Reason Onset Date Comments Refill Request 11/17/2023 Specialty Diagnoses / Procedures Referred By Christina t Referred To Contact MR IMAGING Diagnoses Biceps tendonitis on left Chronic left shoulder pain Procedures MRI SHOULDER WO IVCON LEFT MRI ANY JT UPPER EXTREMITY W/O CONTRAST Wilmar Garcia MD [address] [facility]. [address] [place] [address] [place] [address] Referral ID Status Reason Start Date Expiration Date V isits Requested Visits Authorized [id number] Closed Auto-Generate d Referral 11/07/2023 12/22/2023 1 1 Reason Comments Results Reason Onset Date Comments Refill Request 12/20/2023 Reason Comments 6 Month Exam Reason Onset Date Comments Refill Request 01/03/2024 Reason Comments PT Eval Specialty Diagnoses / Procedures Referred By Contac t Referred To Contact Physical Therapy / PHYSICAL THERAPY Diagnoses left shoulder Procedures NEW RS PT ORTH [facility] Self Kian Aceves, PT [address] [place] [address] Referral ID Status Reason Start Date Expiration Date Visits Re quested Visits Authorized [id number] Closed 07/09/2023 07/08/2024 1 1 Reason Comments Post Op Pain Reason Onset Date Comments Refill Request 02/08/2024 Referral ID Status Reason Start Date Expiration Date V isits Requested Visits Authorized [id number] Closed PCP Requested Referral Auto-Generated Referral 01/29/2024 04/07/2024 6 6 Reason Onset Date Comments Refill Request 03/18/2024 Reason Onset Date Comments Refill Request 04/04/2024 Reason Comments Increased BP Reason Comments Acute Visit increased BP Reason Onset Date Comments Refill Request 04/14/2024 Reason Comments Established Patient Follow Up Post Op Reason Comments Insurance Authorization PT Rehab Follow Up Reason Onset Date Comments Refill Request 05/25/2024 Reason Onset Date Comments Refill Request 07/01/2024 Reason Comments F/U 6 Month Reason Comments Vaginal Problem Painful lump first n oticed 3 days ago Reason Comments Patient Update Reason Onset Date Comments Refill Request 09/16/2024 Reason Onset Date Comments Refill Request 10/22/2024 Reason Onset Date Comments Refill Request 11/20/2024 Reason Comments 6 Month Exam Reason Onset Date Comments Refill Request 01/20/2025 Reason Onset Date Comments Refill Request 02/24/2025 Care Teams (unrecognized sec tion and content) Silk Snapper Relationship Specialty Start Date End Date Gabbie Grady MD [address] [place] [address] PCP - General Family Practice 11/29/18 Silk Snapper Relationship Specialty Start Date End Date Gabbie Grady MD [address] [place] [address] PCP - General Family Practice 11/29/18 Silk Snapper Relationship Specialty Start Date End Date Gabbie Grady MD [address] [place] [address] PCP - General Family Practice 11/29/18 Silk Snapper Relationship Specialty Start Date End Date Gabbie Grady MD [address] [place] [address], [place] [address] PCP - General Family Practice 11/29/18 Silk Snapper Relationship Specialty Start Date End Date Gabbie Grady MD [address] [place] [address], [place] [address] PCP - General Family Practice 11/29/18 Silk Snapper Relationship Specialty Start Date End Date Gabbie Grady MD [facility] [place] [address] PCP - General Family Practice 11/29/18 Silk Snapper Relationship Specialty Start Date End Date Gabbie Grady MD [facility] [place] [address] PCP - General Family Practice 11/29/18 Silk Snapper Relationship Specialty Start Date End Date Gabbie Grady MD [facility] [place] [address] PCP - General Family Practice 11/29/18 Silk Snapper Relationship Specialty Start Date End Date Gabbie Grady MD [address] [place] [address], [place] [address] PCP - General Family Practice 11/29/18 Silk Snapper Relationship Specialty Start Date End Date Gabbie Grady MD [address] [place] [address] PCP - General Family Practice 11/29/18 Silk Snapper Relationship Specialty Start Date End Date Gabbie Grady MD [address] [place] [address] PCP - General Family Practice 11/29/18 Silk Snapper Relationship Specialty Start Date End Date Gabbie Grady MD [address] [place] [address] PCP - General Family Practice 11/29/18 Silk Snapper Relationship Specialty Start Date End Date Gabbie Grady MD [address] [place] [address] PCP - General Family Practice 11/29/18 Silk Snapper Relationship Specialty Start Date End Date Gabbie Grady MD [address] [place] [address] PCP - General Family Practice 11/29/18 Silk Snapper Relationship Specialty Start Date End Date Gabbie Grady MD [address] [place] [address] PCP - General Family Practice 11/29/18 Silk Snapper Relationship Specialty Start Date End Date Gabbie Grady MD [address] [place] [address] PCP - General Family Practice 11/29/18 Silk Snapper Relationship Specialty Start Date End Date Gabbie Grady MD [address] [place] [address] PCP - General Family Practice 11/29/18 Silk Snapper Relationship Specialty Start Date End Date Gabbie Grady MD [address] [place] [address] PCP - General Family Medicine 11/29/18 Silk Snapper Relationship Specialty Start Date End Date Gabbie Grady MD [address] [place] [address] PCP - General Family Medicine 11/29/18 Silk Snapper Relationship Specialty Start Date End Date Gabbie Grady MD [address] [place] [address] PCP - General Family Medicine 11/29/18 Silk Snapper Relationship Specialty Start Date End Date Gabbie Grady MD [address] [place] [address] PCP - General Family Medicine 11/29/18 Silk Snapper Relationship Specialty Start Date End Date Gabbie Grady MD [address] [place] [address] PCP - General Family Medicine 11/29/18 Silk Snapper Relationship Specialty Start Date End Date Gabbie Grady MD [address] [place] [address] PCP - General Family Medicine 11/29/18 Silk Snapper Relationship Specialty Start Date End Date Gabbie Grady MD [address] [place] [address] PCP - General Family Medicine 11/29/18 Silk Snapper Relationship Specialty Start Date End Date Gabbie Grady MD [address] [place] [address] PCP - General Family Medicine 11/29/18 Silk Snapper Relationship Specialty Start Date End Date Gabbie Grady MD [address] [place] [address] PCP - General Family Medicine 11/29/18 Silk Snapper Relationship Specialty Start Date End Date Gabbie Grady MD [address] [place] [address] PCP - General Family Medicine 11/29/18 Silk Snapper Relationship Specialty Start Date End Date Gabbie Grady MD [address] [place] [address] PCP - General Family Medicine 11/29/18 Silk Snapper Relationship Specialty Start Date End Date Gabbie Grady MD [address] [place] [address] PCP - General Family Medicine 11/29/18 Silk Snapper Relationship Specialty Start Date End Date Gabbie Grady MD [address] [place] [address] PCP - General Family Medicine 11/29/18 Team Status: Active Member Role Status Dates Dr. Gabbie Grady MD Family Provider Active Dr. Gabbie Grady MD Primary Care Provider Active Team Status: Inactive Member Role Status Dates Dr. Gabbie Grady MD Primary Care Provider, Referr ing Provider Active Dr. Mihir Alicea MD Attending Provider Active Team Status: Inactive Member Role Status Dates Dr. Gabbie Grady MD Primary Care Provider Active Hilda Luna GOLF RANGE ATTENDANT, GOLF RANGE ATTENDANT-C Attending Provider, Referrin g Provider Active Silk Snapper Relationship Specialty Start Date End Date Gabbie Grady MD [address] [place] [address] PCP - General Family Medicine 11/29/18 Silk Snapper Relationship Specialty Start Date End Date Gabbie Grady MD [address] [place] [address] PCP - General Family Medicine 11/29/18 Silk Snapper Relationship Specialty Start Date End Date Gabbie Grady MD [address] [place] [address] PCP - General Family Medicine 11/29/18 Silk Snapper Relationship Specialty Start Date End Date Gabbie Grady MD [address] [place] [address] PCP - General Family Medicine 11/29/18 Silk Snapper Relationship Specialty Start Date End Date Gabbie Grady MD [address] [place] [address] PCP - General Family Medicine 11/29/18 Silk Snapper Relationship Specialty Start Date End Date Gabbie Grady MD [address] [place] [address] PCP - General Family Medicine 11/29/18 Silk Snapper Relationship Specialty Start Date End Date Gabbie Grady MD [address] [place] [address] PCP - General Family Medicine 11/29/18 Silk Snapper Relationship Specialty Start Date End Date Gabbie Grady MD [address] [place] [address] PCP - General Family Medicine 11/29/18 Silk Snapper Relationship Specialty Start Date End Date Gabbie Grady MD [address] [place] [address] PCP - General Family Medicine 11/29/18 Silk Snapper Relationship Specialty Start Date End Date Gabbie Grady MD [address] [place] [address] PCP - General Family Medicine 11/29/18 Silk Snapper Relationship Specialty Start Date End Date Gabbie Grady MD [address] [place] [address] PCP - General Family Medicine 11/29/18 Silk Snapper Relationship Specialty Start Date End Date Gabbie Grady MD [address] [place] [address] PCP - General Family Medicine 11/29/18 Silk Snapper Relationship Specialty Start Date End Date Gabbie Grady MD [address] [place] [address] PCP - General Family Medicine 11/29/18 Silk Snapper Relationship Specialty Start Date End Date Gabbie Grady MD [address] [place] [address] PCP - General Family Medicine 11/29/18 Silk Snapper Relationship Specialty Start Date End Date Gabbie Grady MD [address] [place] [address] PCP - General Family Medicine 11/29/18 Silk Snapper Relationship Specialty Start Date End Date Gabbie Grady MD [address] [place] [address] PCP - General Family Medicine 11/29/18 Silk Snapper Relationship Specialty Start Date End Date Gabbie Grady MD [address] [place] [address] PCP - General Family Medicine 11/29/18 Silk Snapper Relationship Specialty Start Date End Date Gabbie Grady MD [address] [place] [address] PCP - General Family Medicine 11/29/18 Silk Snapper Relationship Specialty Start Date End Date Gabbie Grady MD [address] [place] [address] PCP - General Family Medicine 11/29/18 Silk Snapper Relationship Specialty Start Date End Date Gabbie Grady MD [address] [place] [address] PCP - General Family Medicine 11/29/18 Silk Snapper Relationship Specialty Start Date End Date Gabbie Grady MD [address] [place] [address] PCP - General Family Medicine 11/29/18 Silk Snapper Relationship Specialty Start Date End Date Gabbie Grady MD [address] [place] [address] PCP - General Family Medicine 11/29/18 Silk Snapper Relationship Specialty Start Date End Date Gabbie Grady MD [address] [place] [address] PCP - General Family Medicine 11/29/18 Silk Snapper Relationship Specialty Start Date End Date Gabbie Grady MD [address] [place] [address] PCP - General Family Medicine 11/29/18 Silk Snapper Relationship Specialty Start Date End Date Gabbie Grady MD [address] [place] [address] PCP - General Family Medicine 11/29/18 Silk Snapper Relationship Specialty Start Date End Date Gabbie Grady MD [address] [place] [address] PCP - General Family Medicine 11/29/18 Silk Snapper Relationship Specialty Start Date End Date Gabbie Grady MD [address] [place] [address] PCP - General Family Medicine 11/29/18 Silk Snapper Relationship Specialty Start Date End Date Gabbie Grady MD [address] [place] [address] PCP - General Family Medicine 11/29/18 Silk Snapper Relationship Specialty Start Date End Date Gabbie Grady MD [address] [place] [address] PCP - General Family Medicine 11/29/18 Silk Snapper Relationship Specialty Start Date End Date Gabbie Grady MD [address] [place] [address] PCP - General Family Medicine 11/29/18 Silk Snapper Relationship Specialty Start Date End Date Gabbie Grady MD [address] [place] [address] PCP - General Family Medicine 11/29/18 Silk Snapper Relationship Specialty Start Date End Date Gabbie Grady MD [address] [place] [address] PCP - General Family Medicine 11/29/18 Silk Snapper Relationship Specialty Start Date End Date Gabbie Grady MD [address] [place] [address] PCP - General Family Medicine 11/29/18 Silk Snapper Relationship Specialty Start Date End Date Gabbie Grady MD [address] [place] [address] PCP - General Family Medicine 11/29/18 Silk Snapper Relationship Specialty Start Date End Date Gabbie Grady MD [address] [place] [address] PCP - General Family Medicine 11/29/18 Silk Snapper Relationship Specialty Start Date End Date Gabbie Grady MD [address] [place] [address] PCP - General Family Medicine 11/29/18 Silk Snapper Relationship Specialty Start Date End Date Gabbie Grady MD [address] [place] [address] PCP - General Family Medicine 11/29/18 Silk Snapper Relationship Specialty Start Date End Date Gabbie Grady MD [address] [place] [address] PCP - General Family Medicine 11/29/18 Silk Snapper Relationship Specialty Start Date End Date Gabbie Grady MD [address] [place] [address] PCP - General Family Medicine 11/29/18 Silk Snapper Relationship Specialty Start Date End Date Gabbie Grady MD [address] [place] [address] PCP - General Family Medicine 11/29/18 Silk Snapper Relationship Specialty Start Date End Date Gabbie Grady MD [address] [place] [address] PCP - General Family Medicine 11/29/18 Silk Snapper Relationship Specialty Start Date End Date Gabbie Grady MD [address] [place] [address] PCP - General Family Medicine 11/29/18 Silk Snapper Relationship Specialty Start Date End Date Gabbie Grday MD [address] [place] [address] PCP - General Family Medicine 11/29/18 Renate Denise, model maker scale Coordinator Other 12/02/14 08/23/20 Silk Snapper Relationship Specialty Start Date End Date Gabbie Grady MD [address] [place] [address] PCP - General Family Medicine 11/29/18 Silk Snapper Relationship Specialty Start Date End Date Gabbie Grady MD [address] [place] [address] PCP - General Family Medicine 11/29/18 Silk Snapper Relationship Specialty Start Date End Date Gabbie Grady MD [address] [place] [address] PCP - General Family Medicine 11/29/18 Xochilt Fernandez APRN.[employer] [address] [place] [address] Motor Coach Tour Operator Family Medicine 06/15/24 Jaskaran Quiroz APRN.[employer] [address] [place] [address] Motor Coach Tour Operator Family Medicine 06/24/24 Silk Snapper Relationship Specialty Start Date End Date Gabbie Grady MD [address] [place] [address] PCP - General Family Medicine 11/29/18 Xochilt Fernandez APRN.[employer] [address] [place] [address] Motor Coach Tour Operator Family Medicine 06/15/24 Jaskaran Quiroz APRN.[employer] [address] [place] [address] Motor Coach Tour Operator Family Medicine 06/24/24 Silk Snapper Relationship Specialty Start Date End Date Gabbie Grady MD [address] [place] [address] PCP - General Family Medicine 11/29/18 Xochilt Fernandez APRN.[employer] [address] [place] [address] Motor Coach Tour Operator Family Medicine 06/15/24 Jaskaran Quiroz APRN.[employer] [address] [place] [address] Motor Coach Tour Operator [facility] Medicine 06/24/24 Silk Snapper Relationship Specialty Start Date End Date Gabbie Grady MD [address] [place] [address] PCP - General Family Medicine 11/29/18 Xochilt Fernandez APRN.[employer] [address] [place] [address] Motor Coach Tour Operator Family Medicine 06/15/24 Jaskaran Quiroz APRN.[employer] [address] [place] [address] Motor Coach Tour Operator Family Medicine 06/24/24 Silk Snapper Relationship Specialty Start Date End Date Gabbie Grady MD [address] [place] [address] PCP - General Family Medicine 11/29/18 Xochilt Fernandez APRN.[employer] [address] [place] [address] Motor Coach Tour Operator Family Medicine 06/15/24 Jaskaran Quiroz APRN.[employer] [address] [place] [address] Motor Coach Tour Operator Family Medicine 06/24/24 Silk Snapper Relationship Specialty Start Date End Date Gabbie Grady MD [address] [place] [address] PCP - General Family Medicine 11/29/18 Xochilt Frenandez APRN.[employer] [address] [place] [address] Motor Coach Tour Operator Family Medicine 06/15/24 Jaskaran Quiroz APRN.[employer] [address] [place] [address] Motor Coach Tour Operator Family [facility] 06/24/24 Silk Snapper Relationship Specialty Start Date End Date Gabbie Grady MD [address] [place] [address] PCP - General Family Medicine 11/29/18 Xochilt Fernandez APRN.[employer] [address] [place] [address] Motor Coach Tour Operator Family Medicine 06/15/24 Jaskaran Quiroz APRN.[employer] [address] [place] [address] Motor Coach Tour Operator Family Medicine 06/24/24 Team Status: Active Member Role Status Dates Dr. Gabbie Grady MD Primary Care Provider Active Team Status: Inactive Member Role Status Dates Dr. Gabbie Grady MD Primary Care Provider Active Start: September 29, 2024 End: September 29, 2024 Dr. Gabbie Grady MD Referring Provider Active Start: September 29, 2024 End: September 29, 2024 Dr. Doug Tamez DO Attending Provider Active Start: September 29, 2024 End: September 29, 2024 Team Status: Active Member Role Status Dates Dr. Gabbie Grady MD Primary Care Provider Active Start: September 29, 2024 Dr. Gabbie Grady MD Referring Provider Active Start: September 29, 2024 Dr. Doug Tamez DO Attending Provider Active Start: September 29, 2024 Dr. Doug Tamez DO Other Provider Active St art: September 29, 2024 Silk Snapper Relationship Specialty Start Date End Date Gabbie Grady MD [address] [place] [address] PCP - General Family Medicine 11/29/18 Xochilt Fernandez APRN.[employer] [address] [place] [address] Motor Coach Tour Operator Family Medicine 06/15/24 Jaskaran Quiroz ROUTE SALES DRIVER.[employer] [address] [place] [address] Motor Coach Tour Operator Family Medicine 06/24/24 Silk Snapper Relationship Specialty Start Date End Date Gabbie Grady MD [address] [place] [address] PCP - General Family Medicine 11/29/18 Xochilt Fernandez ROUTE SALES DRIVER.[employer] [address] [place] [address] Motor Coach Tour Operator Family Medicine 06/15/24 Jaskaran Quiroz APRN.[employer] [address] [place] [address] Motor Coach Tour Operator Family Medicine 06/24/24 Silk Snapper Relationship Specialty Start Date End Date Gabbie Grady MD [address] [place] [address] PCP - General Family Medicine 11/29/18 Xochilt Fernandez APRN.[employer] [address] [place] [address] Motor Coach Tour Operator Family Medicine 06/15/24 Jaskaran Quiroz APRN.[employer] [address] [place] [address] Motor Coach Tour Operator Family [facility] 06/24/24 Silk Snapper Relationship Specialty Start Date End Date Gabbie Grady MD [address] [place] [address] PCP - General Family Medicine 11/29/18 Jaskaran Quiroz APRN.[employer] [address] [place] [address] Motor Coach Tour Operator [facility] 06/24/24 Silk Snapper Relationship Specialty Start Date End Date Gabbie Grady MD [address] [place] [address] PCP - General Family Medicine 11/29/18 Jaskaran Quiroz APRN.[employer] [address] [place] [address] [facility] Silk Snapper Relationship Specialty Start Date End Date Gabbie Grady MD [address] [place] [address] PCP - General Family Medicine 11/29/18 Jaskaran Quiroz APRN.[employer] [address] [place] [address] [facility] 06/24/24 Silk Snapper Relationship Specialty Start Date End Date Gabbie Grady MD [address] [place] [address] PCP - General Family Medicine 11/29/18 Jaskaran Quiroz APRN.[employer] [address] [place] [address] Motor Coach [facility] 06/24/24 Team Status: Inactive Member Role Status Dates Dr. Gabbie Grady MD Primary Care Provider Active Start: January 01, 2025 End: January 01, 2025 Dr. Gabbie Grady MD Referring Provider Active Start: January 01, 2025 End: January 01, 2025 YARY Ramsay Attending Provider Active Start: January 01, 2025 End: January 01, 2025 Silk Snapper Relationship Specialty Start Date End Date Gabbie Grady MD [address] [place] [address] PCP - General Family Medicine 11/29/18 Jaskaran Quiroz APRN.[employer] [address] [place] [address] [facility] 06/24/24 Team Status: Active Member Role/Relationship Status Dates Dr. Gabbie Grady MD Primary Care Provider Active Team Status: Inactive Member Role/Relationship Status Dates Dr. Gabbie Grady MD Primary Care Provider Active Start: September 29, 2024 End: September 29, 2024 Dr. Gabbie Grady MD Referring Provider Active Start: September 29, 2024 End: September 29, 2024 Dr. Doug Tamez DO Attending Provider Active Start: September 29, 2024 End: September 29, 2024 Team Status: Active Member Role/Relationship Status Dates Dr. Gabbie Grady MD Primary Care Provider Active Start: September 29, 2024 Dr. Gabbie Grady MD Referring Provider Active Start: September 29, 2024 Dr. Doug Tamez DO Attending Provider Active Start: September 29, 2024 Dr. Doug Tamez DO Other Provider Active St art: September 29, 2024 Team Status: Inactive Member Role/Relationship Status Dates Dr. Gabbie Grady MD Primary Care Provider Active Start: January 01, 2025 End: January 01, 2025 Dr. Gabbie Grady MD Referring Provider Active Start: January 01, 2025 End: January 01, 2025 YARY Ramsay Attending Provider Active Start: January 01, 2025 End: January 01, 2025 Team Status: Inactive Member Role/Relationship Status Dates Dr. Gabbie Grady MD Primary Care Provider Active Start: January 07, 2025 End: January 07, 2025 YARY Ramsay Attending Provider Active Start: January 07, 2025 End: January 07, 2025 YARY Ramsay Referring Provider Active Start: January 07, 2025 End: January 07, 2025 Dr. Doug Tamez DO Other Provider Active St art: January 07, 2025 End: January 07, 2025 Silk Snapper Relationship Specialty Start Date End Date Gabbie Grady MD [address] [place], [place] [address] PCP - General Family Medicine 11/29/18 Jaskaran Quiroz APRN.[employer] [address] [place], [place] [address] Motor Coach Tour Operator Family Medicine 06/24/24 Silk Snapper Relationship Specialty Start Date End Date Gabbie Grady MD [address] [place], [place] [address] PCP - General Family Medicine 11/29/18 Jaskaran Quiroz APRN.[employer] [address] [place] [address] Motor Coach Tour Operator Family Medicine 06/24/24 Goals (unrecognized section and content) Goals may be documented in a n alternate section No data available for this sectionGoals may be documented in an alternate section No data available for this section Care Team (unrecognized sect ion and content) Care Team Personnel Name: GABBIE GRADY MD Member Role: Primary Care Physician Address: Address: [address] Care Team Related Persons Name: TRACY MARES Name: TRACY MARES FOR RECORDS PERTAINING TO PATIENTS WHO ARE OR HAVE BEEN ENROLLED IN A CHEMICAL DEPENDENCY/SUBSTANCEABUSE PROGRAM, SOME INFORMATION MAY BE OMITTED. This clinical summary was aggregated from multiple sources. Caution should be exercised in using it in the provision of clinical care. This summary normalizes information from multiple sources, and as a consequence, information in this document may materially change the coding, format and clinical context of patient data. In addition, data may be omitted in some cases. CLINICAL DECISIONS SHOULD BE BASED ON THE PRIMARY CLINICAL RECORDS. [facility] [employer] provides no warranty or guarantee of the accuracy or completeness of information in this document.
[2025-05-18 16:09] LABS: Immunoglobulin A 221 mg/dL (87-352)
== END | disposition home or self-care (01) ==
PROVIDERS: PCP Family Medicine; Referring Provider Student in an Organized Health Care Education/Training Program; Visit Provider Student in an Organized Health Care Education/Training Program
DX: R19.7 Diarrhea, unspecified (principal); K76.0 Fatty (change of) liver, not elsewhere classified
CPT/HCPCS: 36415; 76705; 76981; 82784; 83516; 86255